=== PATIENT | female | born 1955 | race Caucasian/White ===

== ENCOUNTER → 2021-07-23 | Outpatient (BNVA) | payer MEDICAID, SELFPAY | END | disposition home or self-care (01) | PROVIDERS: PCP Hospitalist; Referring Provider Hospitalist; Visit Provider Urology ==

== ENCOUNTER 2024-07-20 11:09 | Inpatient (IN) | payer MEDICAID, SELFPAY ==
[2024-07-20] VITALS (28 sets, daily range): BP systolic 93–141; BP diastolic 48–89; PULSE 62–114; RESP 18–31; TEMP 35.6–36.5; O2SAT 93–100; BMI 32.2
--- NOTE | 2024-07-20 11:12 | EDNOTE_ITS ---
ED SOB =RME/HPI General Chief Complaint: Flu Like Symptoms Stated Complaint: COUGH Time Seen by Provider: 07/20/24 11:11 Arrival date/time: 07/20/24 11:09 RME / HPI RME / HPI Narrative: This section includes all my notes and documentations, including HPI, PE, and ED course. Robin Beck MD HPI: 68-year-old female here with worsening cough and shortness of breath. Reports several weeks of worsening cough, productive cough, purulent sputum, and dyspnea. No other complaints. ROS: All negative except as documented in HPI. Physical Exam: General: Alert and oriented. Hacking cough noted. Eyes: Conjunctivae and lids clear. ENT: No nasal congestion. Pharynx normal. TM normal bilaterally. Neck: Supple. No JVD. Heart: Irregularly irregular. Lungs: Mild respiratory distress. Moderately decreased air movement with bilateral rales. Abdomen: Soft and nontender. Back: No CVA tenderness. Skin: Warm and dry. Neuro: Alert and oriented X 3. I reviewed all diagnostic test results. My interpretation of the EKG is atrial fibrillation with RVR. My interpretation of the chest x-ray is bilateral infiltrates. At this point, diagnoses include pneumonia, atrial fibrillation with RVR, CHF, elevated troponin, hypothyroidism, ESRD, and UTI. I discussed the case with our hospitalist. About the presentation and exam and diagnostics and treatments here. And need of further care in the hospital. Will accept the patient. Robin Beck MD Related Data Home Medications ?Medication ?Instructions ?Recorded ?Confirmed bisacodyl 10 mg rectal suppository 10 mg NE Q72H PRN Constipation 02/27/20 07/30/24 (Dulcolax (bisacodyl)) sodium phosphates 19 gram-7 118 ml NE Q72H PRN Constipation 02/27/20 07/30/24 gram/118 mL enema (Fleet Enema) melatonin 3 mg tablet 3 mg PO HS PRN Insomnia 08/19/21 07/21/24 acetaminophen 325 mg tablet 650 mg PO [id number] PRN Pain (Scale 04/21/22 07/30/24 (Tylenol) Score 1-3) amino acids-protein hydrolysate 15 1 ea PO BIDWMEAL 10/12/22 01/20/25 gram-100 kcal/30 mL oral liquid pkt sevelamer HCl 800 mg tablet 2,400 mg PO TIDWM 04/21/22 07/30/24 docusate sodium 250 mg capsule 250 mg PO DAILY PRN Constipation 05/25/23 07/21/24 ondansetron HCl 4 mg tablet 4 mg PO Q6H PRN Nausea And Vomiting 05/25/23 07/30/24 aluminum-mag hydroxide-simethicone 15 ml PO [id number] PRN Acid Reflux 07/30/24 07/30/24 200 mg-200 mg-20 mg/5 mL oral susp (Annabelle-Lanta) folic acid 1 mg tablet 1 mg PO QDAY 07/30/24 07/30/24 vitamin B complex-vitamin C-folic 1 tab PO QDAY 07/30/24 07/30/24 acid 0.8 mg tablet (Dayan-Aristides) Previous Rx's ?Medication ?Instructions ?Recorded levothyroxine 100 mcg tablet 100 mcg PO ACBR 30 days #30 tabs 08/02/24 amiodarone 200 mg tablet 200 mg PO BID #30 tabs 08/03/24 apixaban 2.5 mg tablet (Eliquis) 2.5 mg PO BID #30 tabs 08/03/24 digoxin 125 mcg (0.125 mg) tablet 125 mcg PO Q48H #30 tabs 08/03/24 midodrine 5 mg tablet 15 mg (3 x 5 mg) PO TID #30 tabs 08/03/24 Allergies Allergy/AdvReac Type Severity Reaction Status Date / Time adhesive Allergy Mild Redness of Verified 07/20/24 12:00 Skin adhesive tape Allergy Mild Redness of Verified 07/20/24 12:00 Skin Course Quality Measures none Orders Category Date Time Status Bedside COVID-19 Antigen Test NOW Care 07/20/24 12:15 Completed Bedside Influenza A&B Antigen Test NOW Care 07/20/24 12:15 Completed COVID-19 Screening Questionnaire NOW Care 07/20/24 13:[address] Screening NOW Care 07/20/24 12:18 Completed Decision to Admit X1 Care 07/20/24 13:36 Completed EKG (ED ONLY) *Do not use* NOW Care 07/20/24 11:49 Completed Saline [Insert IV] NOW Care 07/20/24 12:16 Completed Straight [In and Out Catheter] X1 Care 07/20/24 12:16 Completed Consult to Cardiology Stat Cons 07/20/24 13:30 Ordered Consult to Nephrology Stat Cons 07/20/24 13:51 Ordered CA echo doppler complete Stat Exams 07/20/24 13:31 Completed CXRP [XR chest 1V portable] Stat Exams 07/20/24 11:48 Completed EKG (ED Only) Stat Exams 07/20/24 11:48 Draft US venous doppler LE BI Stat Exams 07/20/24 12:18 Completed BNP [B-Type Natriuretic Peptide] Stat Lab 07/20/24 11:54 Completed CBC Stat Lab 07/20/24 11:54 Completed CMP [Comprehensive Metabolic Panel] Stat Lab 07/20/24 11:54 Completed D-Dimer Stat Lab 07/20/24 11:54 Completed Magnesium Stat Lab 07/20/24 11:54 Completed Thyroid Stimulating Hormone Stat Lab 07/20/24 11:54 Completed Troponin I Stat Lab 07/20/24 11:54 Completed UA, C/S IF [Urinalysis, C/S if Indicated] Stat Lab 07/20/24 14:15 Completed Urine Culture Stat Lab 07/20/24 14:15 Completed Aspirin Chew Med 07/20/24 13:27 Discontinued 324 mg PO X1 ONE Azithromycin Inj [Zithromax Inj] 500 mg Med 07/20/24 13:32 Discontinued Sodium Chloride 0.9% 250 ml [Ns] 250 ml IV X1 Cefepime Inj [Maxipime Inj] 2 gm Med 07/20/24 13:46 Discontinued Sodium Chloride 0.9% (P) [Ns 0.9% (P)] 50 ml IV X1 Furosemide Inj [Lasix Inj] Med 07/20/24 11:48 Discontinued 40 mg IVP X1 ONE Morphine Inj Med 07/20/24 12:18 Discontinued 2 mg IVP X1 ONE Nitroglycerin Oint 2% [Nitro-paste Oint 2%] Med 07/20/24 12:18 Discontinued 1 inch TOP X1 ONE Vancomycin Inj 2,000 mg Med 07/20/24 13:46 Discontinued Sodium Chloride 0.9% 500 ml [Ns] 500 ml IV X1 cefTRIAXone [Rocephin] 1,000 mg Med 07/20/24 13:32 Discontinued Sodium Chloride 0.9% (P) [Ns 0.9% (P)] 50 ml IV X1 EKG (RT) Stat RT 07/20/24 14:29 Draft Oxygen Delivery NOW RT 07/20/24 12:15 Completed Vital Signs Vital signs: Vital Signs Temperature 97.6 F 07/20/24 11:31 Pulse Rate 98 07/20/24 11:31 Respiratory Rate 18 07/20/24 11:31 Blood Pressure 114/81 07/20/24 11:31 Pulse Oximetry (%) 100 07/20/24 11:31 Oxygen Delivery Method Nasal Cannula 07/20/24 11:31 Oxygen Flow Rate 3 07/20/24 11:31 Shortness of Breath / Dyspnea Patient data External records reviewed:: [facility] previous records Clinical information provided by:: patient, EMS and family Social determinants that could affect healthcare access:: none Patient has the following chronic illnesses:: ESRD, CHF, atrial fibrillation, DM How is presenting disease/condition affected by chronic disease/condition?: exacerbated by Evaluation data The following diagnostics were reviewed and interpreted by me:: lab results, radiology exam(s) and EKG tracing(s) (My interpretation of the EKG is: Atrial fibrillation (103 bpm) with nonspecific ST-T changes. Robin Beck MD) Lab and/or radiology exams considered but not ordered:: None Interpretation Summary: Pneumonia, atrial fibrillation with RVR, CHF, hypothyroidism, ESRD, UTI Medications / Prescriptions Medications or Prescriptions considered but not ordered:: None Medication administrations:: Medication Administration History Discontinued Medications Acetaminophen (Acetaminophen 500 Mg Tablet) 500 mg PO X1 ONE Stop: 07/27/24 02:34 Last Admin: 07/27/24 02:50 Dose: 500 mg Documented By: RB Acetaminophen (Acetaminophen 325 Mg Tablet) 650 mg PO Q4HR PRN PRN Reason: mild pain Stop: 08/26/24 16:12 Acetaminophen (Acetaminophen 325 Mg Tablet) 650 mg PO Q4HR PRN PRN Reason: mild pain 1-3 or Fever >100.4 Stop: 08/26/24 16:12 Last Admin: 08/03/24 10:08 Dose: 650 mg Documented By: Admin: 08/02/24 21:24 Dose: 650 mg Documented By: Admin: 08/02/24 04:23 Dose: 650 mg Documented By: Admin: 08/01/24 20:06 Dose: 650 mg Documented By: Admin: 07/30/24 05:53 Dose: 650 mg Documented By: Admin: 07/27/24 16:33 Dose: 650 mg Documented By: MGD Hydrocodone Bitart/Acetaminophen (Hydrocodone/Apap 5/325 Tablet) 1 tab PO X1 ONE Stop: 07/20/24 16:21 Last Admin: 07/20/24 16:23 Dose: 1 tab Documented By: TM Al Hydrox/Mg Hydrox/Simethicone (Mg Hyd/Al Hyd/Alfredo (Maalox Reg) Susp 30 Ml Udc) 30 ml PO QID PRN PRN Reason: UPSET STOMACH/INDIGESTION Stop: 08/26/24 18:40 Last Admin: 07/30/24 13:52 Dose: 30 ml Documented By: Admin: 07/29/24 18:19 Dose: 30 ml Documented By: Admin: 07/27/24 18:49 Dose: 30 ml Documented By: MGD Apixaban (Apixaban 2.5 Mg Tablet) 5 mg PO BID KOTA Stop: 08/19/24 20:59 Last Admin: 07/21/24 20:37 Dose: 5 mg Documented By: Admin: 07/21/24 08:49 Dose: 5 mg Documented By: Admin: 07/20/24 20:27 Dose: 5 mg Documented By: RITIKA(2) Apixaban (Apixaban 2.5 Mg Tablet) 2.5 mg PO BID KOTA Stop: 08/21/24 08:59 Last Admin: 08/03/24 10:08 Dose: 2.5 mg Documented By: Admin: 08/02/24 21:24 Dose: 2.5 mg Documented By: Admin: 08/02/24 08:51 Dose: 2.5 mg Documented By: Admin: 08/01/24 20:09 Dose: 2.5 mg Documented By: Admin: 08/01/24 08:09 Dose: 2.5 mg Documented By: Admin: 07/31/24 21:20 Dose: 2.5 mg Documented By: Admin: 07/31/24 09:04 Dose: 2.5 mg Documented By: Admin: 07/30/24 20:57 Dose: 2.5 mg Documented By: Admin: 07/30/24 09:09 Dose: 2.5 mg Documented By: Admin: 07/29/24 21:13 Dose: 2.5 mg Documented By: Admin: 07/29/24 08:58 Dose: 2.5 mg Documented By: Admin: 07/28/24 20:47 Dose: 2.5 mg Documented By: Admin: 07/28/24 08:48 Dose: 2.5 mg Documented By: Admin: 07/27/24 21:19 Dose: 2.5 mg Documented By: Admin: 07/24/24 08:48 Dose: 2.5 mg Documented By: Admin: 07/23/24 20:34 Dose: 2.5 mg Documented By: Admin: 07/23/24 08:50 Dose: 2.5 mg Documented By: Admin: 07/22/24 20:43 Dose: 2.5 mg Documented By: Admin: 07/22/24 09:09 Dose: 2.5 mg Documented By: KELLEE Aspirin (Aspirin 81 Mg Chew) 324 mg PO X1 ONE Stop: 07/20/24 13:28 Last Admin: 07/20/24 14:56 Dose: 324 mg Documented By: MILIND Aspirin (Aspirin Ec 81 Mg Tabec) 81 mg PO X1 ONE Stop: 07/21/24 09:01 Last Admin: 07/21/24 09:00 Dose: 81 mg Documented By: KELLEE Aspirin (Aspirin Ec 81 Mg Tabec) 81 mg PO QDAY [facility] Stop: 08/21/24 08:59 Last Admin: 08/03/24 10:08 Dose: 81 mg Documented By: Admin: 08/02/24 08:51 Dose: 81 mg Documented By: Admin: 08/01/24 08:09 Dose: 81 mg Documented By: Admin: 07/31/24 09:04 Dose: 81 mg Documented By: Admin: 07/30/24 09:09 Dose: 81 mg Documented By: Admin: 07/29/24 08:58 Dose: 81 mg Documented By: Admin: 07/24/24 08:48 Dose: 81 mg Documented By: Admin: 07/23/24 08:50 Dose: 81 mg Documented By: Admin: 07/22/24 09:10 Dose: 81 mg Documented By: KELLEE Azithromycin (Azithromycin 250 Mg Tablet) 500 mg PO QDAY [facility] Stop: 07/22/24 23:55 Last Admin: 07/22/24 09:10 Dose: 500 mg Documented By: Admin: 07/21/24 08:49 Dose: 500 mg Documented By: KELLEE Benzonatate (Benzonatate 100 Mg Capsule) 100 mg PO Q8HR PRN; Protocol PRN Reason: COUGH Stop: 08/20/24 11:41 Last Admin: 07/26/24 19:45 Dose: 100 mg Documented By: Admin: 07/25/24 21:14 Dose: 100 mg Documented By: Admin: 07/25/24 09:19 Dose: 100 mg Documented By: Admin: 07/23/24 22:29 Dose: 100 mg Documented By: Admin: 07/23/24 05:43 Dose: 100 mg Documented By: Admin: 07/22/24 20:43 Dose: 100 mg Documented By: Admin: 07/22/24 05:51 Dose: 100 mg Documented By: Admin: 07/21/24 20:37 Dose: 100 mg Documented By: Admin: 07/21/24 11:49 Dose: 100 mg Documented By: KELLEE Dextrose (Dextrose 50%-Water Inj 50 Ml Syringe) 25 ml IV Q15MIN PRN PRN Reason: BG 50-70 responsive npo pt Stop: 08/19/24 15:45 Dextrose (Dextrose 50%-Water Inj 50 Ml Syringe) 50 ml IV Q15MIN PRN PRN Reason: BG <50 OR BG <70 & pt unresponsive Stop: 08/19/24 15:45 Last Admin: 07/21/24 07:46 Dose: 50 ml Documented By: KELLEE Dicyclomine HCl (Dicyclomine 10 Mg Capsule) 10 mg PO X1 ONE Stop: 07/29/24 07:47 Last Admin: 07/29/24 07:58 Dose: 10 mg Documented By: CHUCK Digoxin (Digoxin 0.125 Mg Tablet) 0.125 mg PO QDAY KOTA Stop: 08/20/24 08:59 Digoxin (Digoxin 0.125 Mg Tablet) 0.125 mg PO X1 ONE Stop: 07/21/24 09:01 Digoxin (Digoxin 0.125 Mg Tablet) 0.25 mg PO X1 ONE Stop: 07/27/24 17:40 Last Admin: 07/27/24 18:27 Dose: 0.25 mg Documented By: MGD Digoxin (Digoxin 0.125 Mg Tablet) 0.25 mg PO X1 ONE Stop: 07/27/24 23:31 Last Admin: 07/28/24 00:14 Dose: 0.25 mg Documented By: MITZY Digoxin (Digoxin 0.125 Mg Tablet) 0.125 mg PO Q48H KOTA Stop: 08/28/24 07:59 Last Admin: 08/02/24 08:51 Dose: 0.125 mg Documented By: Admin: 07/31/24 09:05 Dose: 0.125 mg Documented By: Admin: 07/29/24 08:57 Dose: 0.125 mg Documented By: BM Comments: ok to give per dr wagoner Epoetin Ant (Epoetin Ant-Epbx Inj 40,000 Unit/Ml Vial (Esrd)) 10,000 unit SC X1 ONE Stop: 07/23/24 09:16 Last Admin: 07/23/24 11:39 Dose: 10,000 unit Documented By: ED(2) Epoetin Ant (Epoetin Ant-Epbx Inj 40,000 Unit/Ml Vial (Esrd)) 10,000 unit SC X1 ONE Stop: 07/25/24 10:01 Last Admin: 07/25/24 09:58 Dose: 10,000 unit Documented By: PAL Epoetin Ant (Epoetin Ant-Epbx Inj 10,000 Unit/Ml Vial (Esrd)) 10,000 unit SC X1 ONE Stop: 07/30/24 09:01 Last Admin: 07/30/24 10:57 Dose: 10,000 unit Documented By: PAL Epoetin Ant (Epoetin Ant-Epbx Inj 10,000 Unit/Ml Vial (Esrd)) 10,000 unit SC X1 ONE Stop: 08/01/24 09:01 Last Admin: 08/01/24 10:06 Dose: Not Given Documented By: CB Non-Admin Reason: Pt did not have dialysis Epoetin Ant (Epoetin Ant-Epbx Inj 10,000 Unit/Ml Vial (Esrd)) 10,000 unit SC X1 ONE Stop: 08/03/24 09:01 Furosemide (Furosemide Inj 10 Mg/Ml 4ml Vial) 40 mg IVP X1 ONE Stop: 07/20/24 11:49 Last Admin: 07/20/24 12:13 Dose: 40 mg Documented By: NATALYA Glucagon (Glucagon Inj 1 Mg Vial) 1 mg IM Q15MIN PRN PRN Reason: BG <70, and no IV access Guaifenesin/Dextromethorphan (Guaifenesin/Dm Tablet) 1 each PO Q4HR PRN; Protocol PRN Reason: COUGH Stop: 08/19/24 16:07 Hydrocortisone Sodium Succinate (Hydrocortisone Sod Succ Inj 100 Mg Vial) 100 mg IV X1 ONE Stop: 07/29/24 13:27 Last Admin: 07/29/24 13:53 Dose: 100 mg Documented By: CHUCK Azithromycin 500 mg/ Sodium (Chloride) 250 mls @ 250 mls/hr IV X1 ONE Stop: 07/20/24 14:31 Last Admin: 07/20/24 15:31 Dose: Not Given Documented By: NATALYA Non-Admin Reason: Discontinued Ceftriaxone Sodium 1,000 mg/ (Sodium Chloride) 50 mls @ 100 mls/hr IV X1 ONE Stop: 07/20/24 14:01 Last Admin: 07/20/24 15:31 Dose: Not Given Documented By: NATALYA Non-Admin Reason: Discontinued Cefepime HCl 2 gm/ Sodium (Chloride) 50 mls @ 100 mls/hr IV X1 ONE Stop: 07/20/24 14:15 Last Infusion: 07/20/24 16:25 Dose: Infused Documented By: Admin: 07/20/24 15:01 Dose: 100 mls/hr Documented By: MILIND Vancomycin HCl 2,000 mg/ (Sodium Chloride) 500 mls @ 150 mls/hr IV X1 ONE Stop: 07/20/24 17:05 Last Admin: 07/20/24 20:26 Dose: 150 mls/hr Documented By: RITIKA(2) Ceftriaxone Sodium/Dextrose (Rocephin/D5w 1gm Iv Premix) 50 mls @ 100 mls/hr IV QDAY [facility] Stop: 07/28/24 08:59 Last Admin: 07/22/24 09:10 Dose: 100 mls/hr Documented By: Infusion: 07/21/24 09:20 Dose: Infused Documented By: Admin: 07/21/24 08:50 Dose: 100 mls/hr Documented By: KELLEE Azithromycin 500 mg/ Sodium (Chloride) 250 mls @ 250 mls/hr IV QDAY [facility] Stop: 07/28/24 08:59 Albumin Human (Albuminar-25 Ivpb) 25 gm in 100 mls @ 100 mls/min IV PRN PRN PRN Reason: DIALYSIS Last Admin: 08/03/24 08:00 Dose: 100 mls/min Documented By: ED(2) Infusion: 07/30/24 19:20 Dose: Infused Documented By: Admin: 07/30/24 09:52 Dose: 100 mls/min Documented By: Infusion: 07/27/24 15:11 Dose: Infused Documented By: Admin: 07/27/24 15:10 Dose: 100 mls/min Documented By: MM(2) Infusion: 07/27/24 13:33 Dose: Infused Documented By: MM(2) Admin: 07/27/24 13:32 Dose: 100 mls/min Documented By: MM(2) Infusion: 07/26/24 13:51 Dose: Infused Documented By: MM(2) Admin: 07/26/24 13:50 Dose: 100 mls/min Documented By: MM(2) Infusion: 07/23/24 09:27 Dose: Infused Documented By: MM(2) Admin: 07/23/24 09:26 Dose: 100 mls/min Documented By: ED(2) Infusion: 07/21/24 14:17 Dose: Infused Documented By: ED(2) Admin: 07/21/24 14:16 Dose: 100 mls/min Documented By: Infusion: 07/20/24 21:02 Dose: Infused Documented By: KD(2) Admin: 07/20/24 17:20 Dose: 100 mls/min Documented By: MM(2) Meropenem 500 mg/ Sodium (Chloride) 50 mls @ 100 mls/hr IV Q24H KOTA Stop: 07/29/24 13:59 Meropenem 500 mg/ Sodium (Chloride) 50 mls @ 100 mls/hr IV Q24H [place] Stop: 07/29/24 12:59 Last Admin: 07/22/24 14:51 Dose: 100 mls/hr Documented By: KELLEE Comments: Admin late due to needing new IV access. Piperacillin/Tazobactam/Dextrose (Zosyn) 2.25 gm in 50 mls @ 100 mls/hr IV Q8HR KOTA Stop: 07/30/24 05:59 Last Infusion: 07/30/24 19:20 Dose: Infused Documented By: Admin: 07/29/24 21:12 Dose: 100 mls/hr Documented By: Infusion: 07/29/24 15:34 Dose: Infused Documented By: Admin: 07/29/24 15:04 Dose: 100 mls/hr Documented By: Infusion: 07/29/24 05:50 Dose: Infused Documented By: Admin: 07/29/24 05:20 Dose: 100 mls/hr Documented By: Infusion: 07/28/24 21:43 Dose: Infused Documented By: Admin: 07/28/24 21:13 Dose: 100 mls/hr Documented By: Infusion: 07/28/24 14:47 Dose: Infused Documented By: Admin: 07/28/24 14:17 Dose: 100 mls/hr Documented By: Infusion: 07/28/24 09:21 Dose: Infused Documented By: Admin: 07/28/24 05:21 Dose: 12.5 mls/hr Documented By: Infusion: 07/28/24 01:19 Dose: Infused Documented By: Admin: 07/27/24 21:19 Dose: 12.5 mls/hr Documented By: Admin: 07/27/24 15:59 Dose: Not Given Documented By: MGD Non-Admin Reason: Held for Dialysis Infusion: 07/27/24 09:08 Dose: Infused Documented By: Admin: 07/27/24 05:08 Dose: 12.5 mls/hr Documented By: Infusion: 07/27/24 01:07 Dose: Infused Documented By: Admin: 07/26/24 21:07 Dose: 12.5 mls/hr Documented By: Infusion: 07/26/24 15:30 Dose: Infused Documented By: Admin: 07/26/24 15:00 Dose: 100 mls/hr Documented By: Infusion: 07/26/24 06:31 Dose: Infused Documented By: Admin: 07/26/24 06:01 Dose: 100 mls/hr Documented By: Infusion: 07/25/24 22:58 Dose: Infused Documented By: Admin: 07/25/24 22:28 Dose: 100 mls/hr Documented By: Infusion: 07/25/24 16:35 Dose: Infused Documented By: Admin: 07/25/24 16:05 Dose: 100 mls/hr Documented By: KELLEE Comments: Administered late due to losing IV access and needing to establish a new one Infusion: 07/25/24 06:08 Dose: Infused Documented By: Admin: 07/25/24 05:38 Dose: 100 mls/hr Documented By: Infusion: 07/24/24 22:16 Dose: Infused Documented By: Admin: 07/24/24 21:46 Dose: 100 mls/hr Documented By: Infusion: 07/24/24 15:27 Dose: Infused Documented By: Admin: 07/24/24 14:57 Dose: 100 mls/hr Documented By: Infusion: 07/24/24 06:41 Dose: Infused Documented By: Admin: 07/24/24 06:11 Dose: 100 mls/hr Documented By: Infusion: 07/23/24 21:03 Dose: Infused Documented By: Admin: 07/23/24 20:33 Dose: 100 mls/hr Documented By: Infusion: 07/23/24 13:53 Dose: Infused Documented By: Admin: 07/23/24 13:23 Dose: 100 mls/hr Documented By: Infusion: 07/23/24 06:14 Dose: Infused Documented By: Admin: 07/23/24 05:44 Dose: 100 mls/hr Documented By: JAVIER Magnesium Sulfate (Magnesium Sulfate Ivpb) 2 gm in 50 mls @ 25 mls/hr IV X1 ONE Stop: 07/26/24 09:30 Last Admin: 07/26/24 08:03 Dose: 25 mls/hr Documented By: MGD Sodium Chloride (Ns) 250 mls @ 999 mls/hr IV .Q16M ONE Stop: 07/26/24 07:57 Last Admin: 07/26/24 08:03 Dose: 999 mls/hr Documented By: MGD Sodium Chloride (Ns) 250 mls @ 999 mls/hr IV .Q16M ONE Stop: 07/27/24 15:41 Last Admin: 07/27/24 18:29 Dose: Not Given Documented By: MGD Non-Admin Reason: not given Albumin Human (Albuminar-25 Ivpb) 12.5 gm in 50 mls @ 50 mls/hr IV X1 ONE Stop: 07/27/24 16:25 Last Admin: 07/27/24 18:29 Dose: Not Given Documented By: MGD Non-Admin Reason: not given Albumin Human (Albuminar-25 Ivpb) 12.5 gm in 50 mls @ 50 mls/hr IV X1 ONE Stop: 07/29/24 09:38 Last Admin: 07/29/24 08:56 Dose: 50 mls/hr Documented By: CHUCK Sodium Chloride (Ns) 250 mls @ 999 mls/hr IV .Q16M ONE Stop: 08/01/24 14:45 Last Admin: 08/01/24 17:03 Dose: Not Given Documented By: MARINA Non-Admin Reason: ok to hold d/t fluid restr. per md gan Amiodarone HCl/Dextrose (Nexterone Ivpb) 150 mg in 100 mls @ 600 mls/hr IV .Q10M ONE Stop: 08/03/24 09:50 Last Admin: 08/03/24 09:52 Dose: 600 mls/hr Documented By: ELAYNE Amiodarone HCl/Dextrose (Nexterone Ivpb) 360 mg in 200 mls @ 33.333 mls/hr IV .Q6H ONE Stop: 08/03/24 15:40 Last Admin: 08/03/24 10:08 Dose: 33.333 mls/hr Documented By: ELAYNE Amiodarone HCl/Dextrose (Nexterone Ivpb) 360 mg in 200 mls @ 16.667 mls/hr IV .Q12H [facility] Stop: 08/04/24 15:29 Insulin Glargine (Insulin Glargine (Lantus) 5 Unit/0.05 Ml (Per 5 Units)) 15 unit SC [facility] Stop: 08/19/24 20:59 Last Admin: 07/20/24 20:28 Dose: 15 unit Documented By: RITIKA(2) Co-signed By: TIMOTHY Insulin Human Lispro (Insulin Lispro (Admelog) 1 Unit/0.01 Ml Unit) 0 unit SC [facility]; Protocol Stop: 08/19/24 16:59 Last Admin: 08/03/24 11:37 Dose: Not Given Documented By: ELAYNE Non-Admin Reason: Per Protocol Admin: 08/03/24 09:46 Dose: Not Given Documented By: ELAYNE Non-Admin Reason: Not In Room Admin: 08/02/24 21:29 Dose: 2 unit Documented By: AL Co-signed By: CG Admin: 08/02/24 17:36 Dose: Not Given Documented By: VA Non-Admin Reason: Per Protocol Admin: 08/02/24 12:07 Dose: 2 unit Documented By: VA Co-signed By: TD Admin: 08/02/24 07:46 Dose: Not Given Documented By: VA Non-Admin Reason: Per Protocol Admin: 08/01/24 20:12 Dose: Not Given Documented By: AL Non-Admin Reason: Contraindicated Comments: 139 Admin: 08/01/24 16:59 Dose: Not Given Documented By: CB Non-Admin Reason: Per Protocol Admin: 08/01/24 11:44 Dose: 3 unit Documented By: MARINA Co-signed By: KARLA Admin: 08/01/24 07:17 Dose: Not Given Documented By: CB Non-Admin Reason: Per Protocol Admin: 07/31/24 21:28 Dose: Not Given Documented By: HV Non-Admin Reason: Per Protocol Admin: 07/31/24 17:54 Dose: 2 unit Documented By: KENNEDI Co-signed By: NATALYA(2) Admin: 07/31/24 12:20 Dose: 2 unit Documented By: KENNEDI Co-signed By: NATALYA(2) Admin: 07/31/24 08:11 Dose: 2 unit Documented By: KENNEDI Co-signed By: NATALYA(2) Admin: 07/30/24 20:57 Dose: Not Given Documented By: NASRA Non-Admin Reason: Per Protocol Admin: 07/30/24 17:31 Dose: 2 unit Documented By: RITIKA Co-signed By: JAZMÍN Admin: 07/30/24 14:14 Dose: Not Given Documented By: RITIKA Non-Admin Reason: Per Protocol Comments: late check due to pt at dialysis Admin: 07/30/24 08:06 Dose: 2 unit Documented By: RITIKA Co-signed By: JAZMÍN Admin: 07/29/24 21:12 Dose: 2 unit Documented By: HOA Co-signed By: TIMOTHY(2) Admin: 07/29/24 17:14 Dose: 2 unit Documented By: CHUKC Co-signed By: RADHIKA Admin: 07/29/24 11:41 Dose: Not Given Documented By: BM Non-Admin Reason: Per Protocol Admin: 07/29/24 07:57 Dose: 2 unit Documented By: BM Co-signed By: AT Admin: 07/28/24 20:47 Dose: 3 unit Documented By: CHULA Co-signed By: JAIME Admin: 07/28/24 18:00 Dose: 3 unit Documented By: CHUCK Co-signed By: KATINA Admin: 07/28/24 11:17 Dose: Not Given Documented By: BM Non-Admin Reason: Per Protocol Admin: 07/28/24 07:49 Dose: Not Given Documented By: BM Non-Admin Reason: Per Protocol Admin: 07/27/24 21:19 Dose: 2 unit Documented By: NC Co-signed By: MR Admin: 07/27/24 18:26 Dose: Not Given Documented By: MGD Non-Admin Reason: Per Protocol Admin: 07/27/24 11:30 Dose: 2 unit Documented By: MGD Co-signed By: DA Admin: 07/27/24 07:53 Dose: 2 unit Documented By: MGD Co-signed By: MM Admin: 07/26/24 20:12 Dose: 2 unit Documented By: RB Co-signed By: ZOILA Admin: 07/26/24 16:54 Dose: Not Given Documented By: MGD Non-Admin Reason: Per Protocol Admin: 07/26/24 11:55 Dose: 2 unit Documented By: [email or web address] Co-signed By: KENNEDI Admin: 07/26/24 07:54 Dose: 2 unit Documented By: MGCaterina Co-signed By: KENNEDI Admin: 07/25/24 21:15 Dose: 2 unit Documented By: HYACINTH Co-signed By: NASRA Admin: 07/25/24 17:32 Dose: 3 unit Documented By: KELLEE Co-signed By: ER Admin: 07/25/24 16:48 Dose: Not Given Documented By: LW Non-Admin Reason: Not In Room Admin: 07/25/24 07:37 Dose: Not Given Documented By: KELLEE Non-Admin Reason: Per Protocol Admin: 07/24/24 21:53 Dose: Not Given Documented By: SS Non-Admin Reason: Per Protocol Admin: 07/24/24 18:38 Dose: Not Given Documented By: KELLEE Non-Admin Reason: Per Protocol Admin: 07/24/24 11:42 Dose: 3 unit Documented By: KELLEE Co-signed By: NATALYA(2) Admin: 07/24/24 07:42 Dose: Not Given Documented By: LW Non-Admin Reason: Per Protocol Admin: 07/23/24 20:50 Dose: 2 unit Documented By: ROSY Co-signed By: ZACHARY Admin: 07/23/24 17:28 Dose: 2 unit Documented By: KELLEE Co-signed By: KATINA Admin: 07/23/24 13:18 Dose: Not Given Documented By: KELLEE Non-Admin Reason: Held for Dialysis Admin: 07/23/24 07:26 Dose: 2 unit Documented By: KELLEE Co-signed By: NATALYA(2) Admin: 07/22/24 20:45 Dose: Not Given Documented By: JAVIER Non-Admin Reason: Per Protocol Admin: 07/22/24 17:59 Dose: Not Given Documented By: KELLEE Non-Admin Reason: Per Protocol Admin: 07/22/24 11:53 Dose: 3 unit Documented By: KELLEE Co-signed By: NATALYA(2) Admin: 07/22/24 07:44 Dose: Not Given Documented By: KELLEE Non-Admin Reason: Per Protocol Admin: 07/21/24 20:34 Dose: 3 unit Documented By: JAVIER Co-signed By: NASRA Admin: 07/21/24 17:45 Dose: Not Given Documented By: KELLEE Non-Admin Reason: Per Protocol Admin: 07/21/24 11:46 Dose: Not Given Documented By: KELLEE Non-Admin Reason: Per Protocol Admin: 07/21/24 08:08 Dose: Not Given Documented By: KELLEE Non-Admin Reason: Per Protocol Admin: 07/20/24 20:48 Dose: Not Given Documented By: KD(2) Non-Admin Reason: Other, see note Admin: 07/20/24 20:11 Dose: Not Given Documented By: KD(2) Non-Admin Reason: Other, see note Insulin Human Lispro (Insulin Lispro (Admelog) 1 Unit/0.01 Ml Unit) 5 unit SC ACHS KOTA Stop: 08/19/24 16:59 Last Admin: 07/21/24 08:09 Dose: Not Given Documented By: KELLEE Non-Admin Reason: held per md Admin: 07/20/24 20:50 Dose: Not Given Documented By: KD(2) Non-Admin Reason: Other, see note Admin: 07/20/24 20:12 Dose: Not Given Documented By: KD(2) Non-Admin Reason: Other, see note Ipratropium [place] (Ipratropium Rt 0.5 Mg/ 2.5 Ml Nebu) 0.5 mg INH Q6HRRT KOTA Stop: 08/19/24 18:59 Last Admin: 07/31/24 06:37 Dose: 0.5 mg Documented By: Admin: 07/31/24 02:25 Dose: 0.5 mg Documented By: Admin: 07/30/24 19:43 Dose: 0.5 mg Documented By: Admin: 07/30/24 13:18 Dose: 0.5 mg Documented By: Admin: 07/30/24 06:44 Dose: 0.5 mg Documented By: Admin: 07/30/24 00:50 Dose: 0.5 mg Documented By: Admin: 07/29/24 18:55 Dose: 0.5 mg Documented By: Admin: 07/29/24 13:05 Dose: 0.5 mg Documented By: Admin: 07/29/24 06:53 Dose: 0.5 mg Documented By: Admin: 07/29/24 00:14 Dose: Not Given Documented By: NE Non-Admin Reason: Patient Refused Admin: 07/28/24 19:07 Dose: 0.5 mg Documented By: Admin: 07/28/24 14:18 Dose: 0.5 mg Documented By: Admin: 07/28/24 07:29 Dose: 0.5 mg Documented By: Admin: 07/28/24 00:20 Dose: 0.5 mg Documented By: Admin: 07/27/24 19:46 Dose: 0.5 mg Documented By: Admin: 07/27/24 13:25 Dose: Not Given Documented By: BJ Non-Admin Reason: Held for Dialysis Admin: 07/27/24 07:43 Dose: 0.5 mg Documented By: Admin: 07/27/24 00:56 Dose: 0.5 mg Documented By: Admin: 07/26/24 19:02 Dose: 0.5 mg Documented By: Admin: 07/26/24 12:25 Dose: 0.5 mg Documented By: Admin: 07/26/24 07:18 Dose: 0.5 mg Documented By: Admin: 07/26/24 01:03 Dose: 0.5 mg Documented By: Admin: 07/25/24 19:22 Dose: 0.5 mg Documented By: Admin: 07/25/24 12:18 Dose: Not Given Documented By: LINDSAY Non-Admin Reason: Not In Room Admin: 07/25/24 07:04 Dose: 0.5 mg Documented By: Admin: 07/25/24 00:13 Dose: 0.5 mg Documented By: Admin: 07/24/24 19:30 Dose: Not Given Documented By: BRADLEY Non-Admin Reason: Held for Procedure Admin: 07/24/24 12:29 Dose: 0.5 mg Documented By: Admin: 07/24/24 06:51 Dose: 0.5 mg Documented By: Admin: 07/24/24 00:40 Dose: 0.5 mg Documented By: SC Admin: 07/23/24 18:43 Dose: 0.5 mg Documented By: SC Admin: 07/23/24 12:27 Dose: Not Given Documented By: JOSIAH Non-Admin Reason: Not In Room Admin: 07/23/24 06:30 Dose: 0.5 mg Documented By: Admin: 07/23/24 00:57 Dose: 0.5 mg Documented By: MM(3) Admin: 07/22/24 22:40 Dose: Not Given Documented By: MM(3) Non-Admin Reason: Other, see note Admin: 07/22/24 13:54 Dose: Not Given Documented By: LINDSAY Non-Admin Reason: Other, see note Comments: pt undergoing procedure Admin: 07/22/24 06:07 Dose: 0.5 mg Documented By: Admin: 07/22/24 00:40 Dose: 0.5 mg Documented By: Admin: 07/21/24 19:27 Dose: 0.5 mg Documented By: REGINA(2) Admin: 07/21/24 13:41 Dose: 0.5 mg Documented By: Admin: 07/21/24 06:32 Dose: 0.5 mg Documented By: Admin: 07/21/24 01:15 Dose: 0.5 mg Documented By: SC Admin: 07/20/24 19:45 Dose: Not Given Documented By: AH(2) Non-Admin Reason: Not In Room Comments: Pt in dialysis Ipratropium [place] (Ipratropium Rt 0.5 Mg/ 2.5 Ml Nebu) 0.5 mg INH Q6HRRT PRN PRN Reason: WHEEZING Stop: 08/19/24 18:59 Lactobacillus Rhamnosus (Lactobacillus Rhamnosus 1 Cap) 1 cap PO BID KOTA Stop: 08/31/24 08:59 Last Admin: 08/03/24 10:08 Dose: 1 cap Documented By: Admin: 08/02/24 21:24 Dose: 1 cap Documented By: Admin: 08/02/24 08:51 Dose: 1 cap Documented By: Admin: 08/01/24 20:07 Dose: 1 cap Documented By: Admin: 08/01/24 11:43 Dose: 1 cap Documented By: MARINA Comments: unscheduled, pt back in room, 0900 dose Admin: 08/01/24 08:27 Dose: Not Given Documented By: MARINA Non-Admin Reason: Not In Room Levalbuterol HCl (Levalbuterol Rt 0.63 Mg/3 Ml Nebu) 0.31 mg INH Q6HRRT [facility] Stop: 08/19/24 18:59 Last Admin: 07/21/24 06:33 Dose: 0.31 mg Documented By: Admin: 07/21/24 01:14 Dose: 0.31 mg Documented By: SC Admin: 07/20/24 19:45 Dose: Not Given Documented By: REGINA(2) Non-Admin Reason: Not In Room Comments: Pt in dialysis Levalbuterol HCl (Levalbuterol Rt 0.63 Mg/3 Ml Nebu) 0.63 mg INH Q6HRRT [facility] Stop: 08/20/24 09:59 Last Admin: 07/31/24 06:37 Dose: 0.63 mg Documented By: Admin: 07/31/24 02:26 Dose: 0.63 mg Documented By: Admin: 07/30/24 19:43 Dose: 0.63 mg Documented By: Admin: 07/30/24 13:18 Dose: 0.63 mg Documented By: Admin: 07/30/24 06:44 Dose: 0.63 mg Documented By: Admin: 07/30/24 00:50 Dose: 0.63 mg Documented By: Admin: 07/29/24 18:55 Dose: 0.63 mg Documented By: Admin: 07/29/24 13:05 Dose: 0.63 mg Documented By: Admin: 07/29/24 06:53 Dose: 0.63 mg Documented By: Admin: 07/29/24 00:14 Dose: Not Given Documented By: NE Non-Admin Reason: Patient Refused Admin: 07/28/24 19:07 Dose: 0.63 mg Documented By: Admin: 07/28/24 14:18 Dose: 0.63 mg Documented By: Admin: 07/28/24 07:29 Dose: 0.63 mg Documented By: Admin: 07/28/24 00:20 Dose: 0.63 mg Documented By: Admin: 07/27/24 19:46 Dose: 0.63 mg Documented By: Admin: 07/27/24 13:25 Dose: Not Given Documented By: BJ Non-Admin Reason: Held for Dialysis Admin: 07/27/24 07:43 Dose: 0.63 mg Documented By: Admin: 07/27/24 00:56 Dose: 0.63 mg Documented By: Admin: 07/26/24 19:02 Dose: 0.63 mg Documented By: Admin: 07/26/24 12:25 Dose: 0.63 mg Documented By: Admin: 07/26/24 07:18 Dose: 0.63 mg Documented By: Admin: 07/26/24 01:03 Dose: 0.63 mg Documented By: Admin: 07/25/24 19:22 Dose: 0.63 mg Documented By: Admin: 07/25/24 12:19 Dose: Not Given Documented By: RG Non-Admin Reason: Not In Room Admin: 07/25/24 07:04 Dose: 0.63 mg Documented By: Admin: 07/25/24 00:13 Dose: 0.63 mg Documented By: Admin: 07/24/24 19:30 Dose: Not Given Documented By: SD Non-Admin Reason: Held for Procedure Admin: 07/24/24 12:29 Dose: 0.63 mg Documented By: Admin: 07/24/24 06:52 Dose: 0.63 mg Documented By: Admin: 07/24/24 00:40 Dose: 0.63 mg Documented By: SC Admin: 07/23/24 18:44 Dose: 0.63 mg Documented By: SC Admin: 07/23/24 12:27 Dose: Not Given Documented By: LO Non-Admin Reason: Not In Room Admin: 07/23/24 06:30 Dose: 0.63 mg Documented By: Admin: 07/23/24 00:57 Dose: 0.63 mg Documented By: PAL(3) Admin: 07/22/24 22:40 Dose: Not Given Documented By: PAL(3) Non-Admin Reason: Other, see note Admin: 07/22/24 13:55 Dose: Not Given Documented By: LINDSAY Non-Admin Reason: Other, see note Comments: pt undergoing procedure Admin: 07/22/24 06:07 Dose: 0.63 mg Documented By: Admin: 07/22/24 00:40 Dose: 0.63 mg Documented By: Admin: 07/21/24 19:27 Dose: 0.63 mg Documented By: REIGNA(2) Admin: 07/21/24 13:41 Dose: 0.63 mg Documented By: Admin: 07/21/24 10:45 Dose: Not Given Documented By: LINDSAY Non-Admin Reason: Wrong Time Levalbuterol HCl (Levalbuterol Rt 0.63 Mg/3 Ml Nebu) 0.63 mg INH Q6HRRT PRN PRN Reason: WHEEZING Stop: 08/20/24 09:59 Levothyroxine Sodium (Levothyroxine Sodium 25 Mcg Tablet) 25 mcg PO ACBR [facility] Stop: 08/19/24 17:34 Last Admin: 07/21/24 05:28 Dose: 25 mcg Documented By: Admin: 07/20/24 20:37 Dose: 25 mcg Documented By: KD(2) Levothyroxine Sodium (Levothyroxine Sodium 25 Mcg Tablet) 50 mcg PO ACBR [facility] Stop: 08/21/24 05:59 Last Admin: 07/29/24 05:19 Dose: 50 mcg Documented By: Admin: 07/28/24 05:21 Dose: 50 mcg Documented By: Admin: 07/27/24 05:08 Dose: 50 mcg Documented By: Admin: 07/26/24 06:01 Dose: 50 mcg Documented By: Admin: 07/25/24 05:37 Dose: 50 mcg Documented By: Admin: 07/24/24 06:12 Dose: 50 mcg Documented By: Admin: 07/23/24 05:43 Dose: 50 mcg Documented By: Admin: 07/22/24 05:51 Dose: 50 mcg Documented By: JAVIER Levothyroxine Sodium (Levothyroxine Inj 100 Mcg Vial) 100 mcg IV X1 ONE Stop: 07/29/24 13:28 Last Admin: 07/29/24 13:53 Dose: 100 mcg Documented By: CHUCK Levothyroxine Sodium (Levothyroxine Sodium 25 Mcg Tablet) 75 mcg PO [facility] Stop: 08/29/24 05:59 Last Admin: 07/31/24 05:09 Dose: 75 mcg Documented By: Admin: 07/30/24 05:54 Dose: 75 mcg Documented By: HOA Levothyroxine Sodium (Levothyroxine Sodium 25 Mcg Tablet) 50 mcg PO X1 ONE Stop: 07/31/24 13:02 Last Admin: 07/31/24 15:13 Dose: 50 mcg Documented By: KENNEDI Levothyroxine Sodium (Levothyroxine Sodium 88 Mcg Tablet) [address] [facility] Stop: 08/31/24 06:59 Last Admin: 08/01/24 06:18 Dose: 88 mcg Documented By: LUDMILA Levothyroxine Sodium (Levothyroxine Sodium 100 Mcg Tablet) 100 mcg PO [facility] Stop: 09/01/24 05:59 Last Admin: 08/03/24 05:12 Dose: 100 mcg Documented By: Admin: 08/02/24 05:10 Dose: 100 mcg Documented By: RACHEL Levothyroxine Sodium (Levothyroxine Sodium 25 Mcg Tablet) 12.5 mcg PO X1 ONE Stop: 08/01/24 10:51 Last Admin: 08/01/24 11:43 Dose: 12.5 mcg Documented By: MARINA Melatonin (Melatonin 3 Mg Tablet) 3 mg PO HS PRN PRN Reason: SLEEPLESSNESS Stop: 08/20/24 20:59 Last Admin: 08/02/24 21:24 Dose: 3 mg Documented By: Admin: 08/01/24 21:19 Dose: 3 mg Documented By: Admin: 08/01/24 20:06 Dose: 3 mg Documented By: Admin: 07/27/24 21:19 Dose: 3 mg Documented By: Admin: 07/26/24 20:11 Dose: 3 mg Documented By: Admin: 07/23/24 22:29 Dose: 3 mg Documented By: Admin: 07/21/24 20:37 Dose: 3 mg Documented By: Admin: 07/21/24 00:37 Dose: 3 mg Documented By: WB Metoprolol Succinate (Metoprolol Succinate Xl 25 Mg Tabcr) 50 mg PO [facility] Stop: 08/19/24 20:59 Last Admin: 07/26/24 20:33 Dose: Not Given Documented By: RB Non-Admin Reason: Per Protocol Admin: 07/25/24 21:14 Dose: 50 mg Documented By: Admin: 07/24/24 21:46 Dose: Not Given Documented By: SS Non-Admin Reason: BP 101/63 Admin: 07/23/24 20:34 Dose: 50 mg Documented By: Admin: 07/22/24 20:43 Dose: 50 mg Documented By: WB Comments: okay to give per Dr. Graham Admin: 07/21/24 20:37 Dose: Not Given Documented By: WB Non-Admin Reason: Per Protocol Admin: 07/20/24 20:26 Dose: 50 mg Documented By: KD(2) Metoprolol Succinate (Metoprolol Succinate Xl 25 Mg Tabcr) 25 mg PO [facility] Stop: 08/26/24 20:59 Metoprolol Succinate (Metoprolol Succinate Xl 25 Mg Tabcr) 50 mg PO [facility] Stop: 08/26/24 20:59 Metoprolol Tartrate (Metoprolol Tartrate 25 Mg Tablet) 25 mg PO BID [facility] Stop: 08/19/24 20:59 Metoprolol Tartrate (Metoprolol Tartrate Inj 1 Mg/Ml Amp 5 Ml) 5 mg IVP X1 ONE Stop: 07/20/24 15:54 Last Admin: 07/20/24 17:00 Dose: Not Given Documented By: TM Non-Admin Reason: Cancelled by Provider Metoprolol Tartrate (Metoprolol Tartrate Inj 1 Mg/Ml Amp 5 Ml) 2.5 mg IVP X1 ONE Stop: 07/20/24 16:13 Last Admin: 07/20/24 16:15 Dose: 2.5 mg Documented By: TM Metoprolol Tartrate (Metoprolol Tartrate Inj 1 Mg/Ml Amp 5 Ml) 5 mg IVP X1 ONE Stop: 07/30/24 06:07 Last Admin: 07/30/24 06:13 Dose: 5 mg Documented By: HOA Metoprolol Tartrate (Metoprolol Tartrate Inj 1 Mg/Ml Amp 5 Ml) Confirm Administered Dose 5 mg .ROUTE .STK-MED ONE Stop: 07/30/24 06:04 Last Admin: 07/30/24 06:13 Dose: Not Given Documented By: HOA Non-Admin Reason: TASK DUPLICATION Midodrine (Midodrine 5 Mg Tablet) 10 mg PO BID KOTA Stop: 08/26/24 08:59 Last Admin: 07/27/24 08:23 Dose: 10 mg Documented By: JAZMÍN Midodrine (Midodrine 5 Mg Tablet) 10 mg PO X1 ONE Stop: 07/27/24 14:00 Last Admin: 07/27/24 15:30 Dose: 10 mg Documented By: JAZMÍN Midodrine (Midodrine 5 Mg Tablet) 10 mg PO TID KOTA Stop: 08/26/24 21:59 Last Admin: 07/29/24 05:20 Dose: 10 mg Documented By: Admin: 07/28/24 21:16 Dose: 10 mg Documented By: Admin: 07/28/24 14:17 Dose: 10 mg Documented By: Admin: 07/28/24 05:21 Dose: 10 mg Documented By: Admin: 07/27/24 21:29 Dose: 10 mg Documented By: MITZY Midodrine (Midodrine 5 Mg Tablet) 10 mg PO X1 ONE Stop: 07/29/24 07:41 Last Admin: 07/29/24 07:58 Dose: 10 mg Documented By: CHUCK Midodrine (Midodrine 5 Mg Tablet) 15 mg PO TID [facility] Stop: 08/28/24 13:59 Last Admin: 08/03/24 14:19 Dose: 15 mg Documented By: MGCaterina Admin: 08/03/24 05:12 Dose: 15 mg Documented By: Admin: 08/02/24 21:23 Dose: 15 mg Documented By: Admin: 08/02/24 14:54 Dose: 15 mg Documented By: Admin: 08/02/24 05:10 Dose: 15 mg Documented By: Admin: 08/01/24 21:15 Dose: 15 mg Documented By: Admin: 08/01/24 14:54 Dose: 15 mg Documented By: Admin: 08/01/24 06:17 Dose: 15 mg Documented By: Admin: 07/31/24 21:21 Dose: 15 mg Documented By: Admin: 07/31/24 15:13 Dose: 15 mg Documented By: Admin: 07/31/24 05:09 Dose: 15 mg Documented By: Admin: 07/30/24 22:13 Dose: 15 mg Documented By: Admin: 07/30/24 14:07 Dose: 15 mg Documented By: Admin: 07/30/24 05:53 Dose: 15 mg Documented By: Admin: 07/29/24 21:13 Dose: 15 mg Documented By: Admin: 07/29/24 13:53 Dose: 15 mg Documented By: CHUCK Morphine Sulfate (Morphine Sulf Inj 10 Mg/Ml Vial) 2 mg IVP X1 ONE Stop: 07/20/24 12:19 Last Admin: 07/20/24 12:43 Dose: 2 mg Documented By: DUSTIN Nitroglycerin (Nitroglycerin Oint 2% 1 Inch Packet) 1 inch TOP X1 ONE Stop: 07/20/24 12:19 Last Admin: 07/20/24 12:40 Dose: 1 inch Documented By: DUSTIN Pantoprazole Sodium (Pantoprazole Inj 40 Mg Vial) 40 mg IV QDAY KOTA Stop: 08/23/24 08:54 Last Admin: 08/03/24 10:08 Dose: 40 mg Documented By: Admin: 08/02/24 08:50 Dose: 40 mg Documented By: Admin: 08/01/24 08:09 Dose: 40 mg Documented By: Admin: 07/31/24 09:04 Dose: 40 mg Documented By: Admin: 07/30/24 09:09 Dose: 40 mg Documented By: Admin: 07/29/24 08:56 Dose: 40 mg Documented By: Admin: 07/28/24 08:48 Dose: 40 mg Documented By: Admin: 07/27/24 08:24 Dose: 40 mg Documented By: Admin: 07/26/24 08:08 Dose: 40 mg Documented By: Admin: 07/25/24 09:16 Dose: Not Given Documented By: KELLEE Non-Admin Reason: Held for Dialysis Admin: 07/24/24 09:11 Dose: 40 mg Documented By: Admin: 07/24/24 09:09 Dose: Not Given Documented By: KELLEE Non-Admin Reason: Duplicate Medication on eMAR Polyethylene Glycol (Polyethylene Glycol 17 Gm Packet) 17 gm PO QDAY KOTA Stop: 08/19/24 15:44 Last Admin: 07/28/24 08:48 Dose: Not Given Documented By: BM Non-Admin Reason: Patient Refused Admin: 07/27/24 08:24 Dose: 17 gm Documented By: Admin: 07/26/24 08:08 Dose: 17 gm Documented By: Admin: 07/25/24 09:16 Dose: Not Given Documented By: KELLEE Non-Admin Reason: Held for Dialysis Admin: 07/24/24 09:02 Dose: Not Given Documented By: KELLEE Non-Admin Reason: Patient Refused Admin: 07/23/24 08:53 Dose: Not Given Documented By: KELLEE Non-Admin Reason: Patient Refused Admin: 07/22/24 09:38 Dose: Not Given Documented By: KELLEE Non-Admin Reason: Pt. refused citing loose stools Admin: 07/21/24 08:57 Dose: Not Given Documented By: KELLEE Non-Admin Reason: Patient Refused Admin: 07/20/24 17:00 Dose: Not Given Documented By: NATALYA Non-Admin Reason: Patient Refused Polyethylene Glycol/Electrolytes (Na Colin/Nahco3/Pacheco/Peg (Golytely) 4,000 Ml Btl) 4,000 ml PO X1 ONE Stop: 07/24/24 09:47 Last Admin: 07/24/24 10:39 Dose: 4,000 ml Documented By: KELLEE Potassium Chloride (Potassium Chloride 10% 20 Meq/15 Ml Udc) 20 meq PO X1 ONE Stop: 07/20/24 16:04 Last Admin: 07/20/24 17:01 Dose: Not Given Documented By: NATALYA Non-Admin Reason: Cancelled by Provider Potassium Chloride (Potassium Chloride 20 Meq Tabcr) 20 meq PO X1 ONE Stop: 07/30/24 07:55 Last Admin: 07/30/24 15:26 Dose: Not Given Documented By: RITIKA Non-Admin Reason: Discontinued Potassium Chloride (Potassium Chloride 20 Meq Tabcr) 40 meq PO X1 ONE Stop: 07/31/24 08:12 Last Admin: 07/31/24 09:12 Dose: 40 meq Documented By: KENNEDI Potassium Chloride (Potassium Chloride 10% 20 Meq/15 Ml Udc) 40 meq PO X1 ONE Stop: 07/31/24 08:14 Last Admin: 07/31/24 09:13 Dose: 40 meq Documented By: KENNEDI Promethazine HCl (Promethazine 25 Mg Supp) 25 mg NE Q6HR PRN PRN Reason: COUGH OR CONGESTION Stop: 08/23/24 08:49 Promethazine HCl/Dextromethorphan (Promethazine/Dm Syrup 5 Ml Dose) 5 ml PO Q6HR PRN; Protocol PRN Reason: COUGH OR CONGESTION Stop: 08/23/24 10:28 Last Admin: 07/25/24 23:52 Dose: 5 ml Documented By: Admin: 07/25/24 17:31 Dose: 5 ml Documented By: Admin: 07/24/24 10:38 Dose: 5 ml Documented By: KELLEE Sennosides (Senna Tablet) 1 tab PO QDAY PRN; Protocol PRN Reason: CONSTIPATION Stop: 08/19/24 15:40 Sevelamer Carbonate (Sevelamer Carbonate 800 Mg Tablet) 800 mg PO TIDWM [facility] Stop: 08/29/24 07:59 Last Admin: 08/03/24 14:19 Dose: 800 mg Documented By: MGCaterina Admin: 08/03/24 09:46 Dose: Not Given Documented By: ELAYNE Non-Admin Reason: Not In Room Admin: 08/02/24 18:10 Dose: 800 mg Documented By: Admin: 08/02/24 12:07 Dose: 800 mg Documented By: Admin: 08/02/24 08:51 Dose: 800 mg Documented By: Admin: 08/01/24 17:47 Dose: Not Given Documented By: CB Non-Admin Reason: Patient Refused Admin: 08/01/24 11:43 Dose: 800 mg Documented By: Admin: 08/01/24 08:09 Dose: 800 mg Documented By: Admin: 07/31/24 18:16 Dose: Not Given Documented By: CB Non-Admin Reason: Patient Refused Admin: 07/31/24 12:21 Dose: 800 mg Documented By: Admin: 07/31/24 09:04 Dose: 800 mg Documented By: Admin: 07/30/24 17:31 Dose: 800 mg Documented By: Admin: 07/30/24 13:52 Dose: 800 mg Documented By: Admin: 07/30/24 08:06 Dose: 800 mg Documented By: RITIKA Simethicone (Simethicone 80 Mg Chew) 80 mg PO X1 ONE Stop: 07/29/24 08:59 Last Admin: 07/29/24 09:14 Dose: 80 mg Documented By: BM Simethicone (Simethicone 80 Mg Chew) 80 mg PO X1 ONE Stop: 07/30/24 13:08 Last Admin: 07/30/24 13:54 Dose: Not Given Documented By: RITIKA Non-Admin Reason: Patient Refused Simethicone (Simethicone 80 Mg Chew) 80 mg PO QID PRN PRN Reason: GAS Stop: 08/29/24 13:06 Sodium Chloride (Sodium Chloride Rt 10% 15 Ml Nebu) 5 ml INH X1 ONE Stop: 07/20/24 15:37 Last Admin: 07/20/24 20:11 Dose: Not Given Documented By: RITIKA(2) Non-Admin Reason: Other, see note Tramadol HCl (Tramadol Hcl 50 Mg Tablet) 50 mg PO Q6H PRN PRN Reason: Pain (Scale Score 4-6) Stop: 07/26/24 00:25 Last Admin: 07/23/24 03:21 Dose: 50 mg Documented By: Admin: 07/22/24 20:43 Dose: 50 mg Documented By: Admin: 07/22/24 05:52 Dose: 50 mg Documented By: Admin: 07/21/24 20:37 Dose: 50 mg Documented By: Admin: 07/21/24 14:36 Dose: 50 mg Documented By: Admin: 07/21/24 00:37 Dose: 50 mg Documented By: JAVIER Tramadol HCl (Tramadol Hcl 50 Mg Tablet) 50 mg PO BID PRN; Protocol PRN Reason: PAIN SCALE 4-6 (Moderate Stop: 07/26/24 00:25 Last Admin: 07/25/24 23:52 Dose: 50 mg Documented By: Admin: 07/25/24 11:08 Dose: 50 mg Documented By: Admin: 07/24/24 21:51 Dose: 50 mg Documented By: Admin: 07/23/24 22:29 Dose: 50 mg Documented By: Admin: 07/23/24 17:28 Dose: 50 mg Documented By: KELLEE Tramadol HCl (Tramadol Hcl 50 Mg Tablet) 50 mg PO X1 ONE Stop: 07/26/24 19:54 Last Admin: 07/26/24 20:03 Dose: 50 mg Documented By: TIA Tramadol HCl (Tramadol Hcl 50 Mg Tablet) 50 mg PO X1 ONE Stop: 07/30/24 06:09 Last Admin: 07/30/24 06:16 Dose: 50 mg Documented By: HOA Tramadol HCl (Tramadol Hcl 50 Mg Tablet) Confirm Administered Dose 50 mg .ROUTE .STK-MED ONE Stop: 07/30/24 06:09 Last Admin: 07/30/24 06:21 Dose: Not Given Documented By: HOA Non-Admin Reason: TASK DUPLICATION See chart Consultations Consultation(s) initiated? (list below): No Diagnosis Shortness of Breath Differential Diagnosis: acute exacerbation of chronic obstructive airways disease, congestive heart failure, community acquired pneumonia, asthma with exacerbation and pulmonary embolism Most likely diagnosis given after review of the tests above:: See chart Admission Indicated Admission indicated?: indicated Explain why admission is indicated or not indicated:: See chart Admission Request Was there a request for admission?: Yes Admission Attestation Admission request attestation: Discussed case with [] from Hospitalist service regarding admission. Discussed patients ED course, exam findings, labs, and radiology results. The Hospitalist [agrees,declines] to accept the patient for admission. Disposition Plan Disposition Plan: Admit Discharge Plan Plan Patient Disposition: Admit Acute Care w/in Hospital Disposition Comment: Hospice at SNF Problem List Clinical Impression: Acute respiratory failure with hypoxia, CHF (congestive heart failure), ESRD (end stage renal disease), care home-acquired pneumonia, UTI (urinary tract infection)
--- NOTE | 2024-07-20 11:48 | XR_ITS ---
Examination: AP chest single view TECHNIQUE: AP portable semiupright chest single view Exam date and time: July 20, 2024 1215 hours Comparison March 09, 2024 INDICATIONS: Shortness of breath productive coughing congestion beginning 3 weeks ago. FINDINGS: Mild CHF Mild enlargement cardiac contour Prominent vascular congestion with perihilar edema Significant bibasilar pneumonia Prominent osteopenia IMPRESSION: Significant bibasilar pneumonia Mild heart failure
--- NOTE | 2024-07-20 11:48 | EKG_ITS ---
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: : 1955 Requested By: Khris Armenta Order Number: [id number] Reading MD: Khris Armenta Measurements Intervals [place] Rate: 103 P: DC: QRS: -57 QRSD: 96 T: 66 QT: 345 QTc: 452 Interpretive Statements ATRIAL FIBRILLATION WITH RAPID VENTRICULAR RESPONSE WITH ABERRANT CONDUCTION OR VENTRICULAR PREMATURE COMPLEXES INDETERMINATE AXIS LOW QRS VOLTAGE IN EXTREMITY LEADS [QRS DEFLECTION < 0.5 mV IN LIMB LEADS] ANTEROSEPTAL MYOCARDIAL INFARCTION , PROBABLY OLD [40+ ms Q WAVE IN V1-V4] Compared to ECG 03/09/2024 06:15:08 Ventricular premature complex(es) now present Aberrant conduction of supraventricular beat(s) now present Indeterminate axis now present Myocardial infarct finding still present /store/S0/[id number].pdf
--- NOTE | 2024-07-20 12:01 | PC.NURSE ---
BIBA FROM DIALYSIS FOR COUGH AND CONGESTION SHE HAS HAD FOR 3 WEEKS. NO DIALYSIS DONE TODAY, REPORTS SHE NORMALLY SITS FOR 3.5 HRS OF DIALYSIS ON MWF. PT ORIGINALLY FROM [facility], REPORTS THEY HAVE BEEN GIVING HER ROBITUSSIN FOR HER COUGH.
[2024-07-20 12:06] LABS: Basophils % (Auto) 1 % (0-2.5); Eosinophils # (Auto) 0.1 Thou/mm3 (0.0-0.5); Eosinophils % (Auto) 2 % (0-10); Hematocrit 39.8 % (36.0-46.0); Hemoglobin 12.5 g/dL (12.0-16.0); Immature Granulocytes % (Auto) 0 % (0-0); Immature Granulocytes Auto 0.02 Thou/mm3 (0.00-0.00); Lymphocytes # (Auto) 1.4 Thou/mm3 (1.0-4.8); Lymphocytes % (Auto) 27 % (10-50); Mean Corpuscular HGB Conc 31.4 g/dl (31.0-37.0); Mean Corpuscular Hemoglobin 31.2 pg (25.0-35.0); Mean Corpuscular Volume 99 fL (80-100); Monocytes # (Auto) 0.3 Thou/mm3 (0.0-0.8); Monocytes % (Auto) 5 % (0-12); Neutrophils # (Auto) 3.4 Thou/mm3 (1.8-7.7); Neutrophils % (Auto) 65 % (37-80); Nucleated Red Blood Cell % 0 /100 WBC (0); Platelet Count 152 Thou/mm3 (140-440); RDW Standard Deviation 58.5 fL (36.4-46.3); Red Blood Count 4.01 Miln/mm3 (4.00-5.20); White Blood Count 5.2 Thou/mm3 (3.6-11.0)
[2024-07-20] MEDS: FUROSEMIDE INJ 10 MG/ML 4ML VIAL 40 MG IVP (12:13)
--- NOTE | 2024-07-20 12:18 | XR_ITS ---
Examination: Venous duplex lower extremity sonogram, bilateral. Date and time of exam: July 20, 2024 1227 hours INDICATIONS: Bilateral leg pain and swelling years, renal cell carcinoma diagnosis, elevated d-dimer on laboratory examination February 28, 2019 Technique: Multiple sonographic images of the deep venous system have been obtained. B-mode/2-D grayscale imaging of vascular structures and Doppler spectral analysis (waveforms) and color performed Both legs are examined. Findings: Deep venous systems do not demonstrate abnormal echogenicity. All visualized deep veins exhibit compressibility. All visualized deep veins exhibit augmentation. Impression: Negative for deep vein thrombosis
[2024-07-20 12:22] LABS: Alanine Aminotransferase 44 U/L (10-49); Alkaline Phosphatase 201 U/L (46-116); Anion Gap 8 (7-16); Aspartate Amino Transferase 65 U/L (0-34); BUN/Creatinine Ratio 6 Ratio (12-20); Bilirubin,Total 0.4 mg/dL (0.3-1.2); Blood Urea Nitrogen 28 mg/dL (9-23); Calcium 9.6 mg/dL (8.3-10.6); Calcium (Corrected) 9.6 mg/dL (8.5-10.1); Carbon Dioxide 32.3 mMol/L (20.0-31.0); Chloride 92 mMol/L (98-107); Creatinine (Component) 4.6 mg/dL (0.6-1.3); Estimated Creatinine Clearance 14.6 mL/min (>60); Globulin 3.9 gm/dL (2.3-3.5); Glucose 199 mg/dL (74-106); Osmolality,Calculated 276 (275-295); Potassium 3.6 mMol/L (3.4-5.1); Sodium 132 mMol/L (136-145); Total Protein 7.9 gm/dL (5.7-8.2); eGFR 10 See Note
[2024-07-20 12:26] LABS: B-Type Natriuretic Peptide 1261 pg/mL (0-100)
[2024-07-20] MEDS: NITROGLYCERIN OINT 2% 1 INCH PACKET TOP (12:40)
[2024-07-20] MEDS: MORPHINE SULF INJ 10 MG/ML VIAL 2 MG IVP (12:43)
[2024-07-20 12:58] LABS: D-Dimer 280 ng/mL (<600)
[2024-07-20 13:12] LABS: Magnesium 2.3 mg/dL (1.6-2.6); Thyroid Stimulating Hormone 118.25 uIU/mL (0.55-4.78)
--- NOTE | 2024-07-20 13:31 | ECHO_ITS ---
Transthoracic Echo Report Ht (in): 68 Wt (lb): 212 Exam Location: ER Status: Emergency Animal Chiropractor: Jena Marrero Indications: Procedure Performed: BP: 119 / 89 HR: 100 Rhythm: Atrial fibrillation Technical Quality: Fair MEASUREMENTS (Male / Female) Normal Values 2D ECHO LV Diastolic Diameter PLAX 5.5 cm 4.2 - 5.9 / 3.9 - 5.3 cm LV Systolic Diameter PLAX 4.4 cm IVS Diastolic Thickness 1.0 cm 0.6 - 1.0 / 0.6 - 0.9 cm LVPW Diastolic Thickness 1.0 cm 0.6 - 1.0 / 0.6 - 0.9 cm LV Relative Wall Thickness 0.4 LVOT Diameter 1.6 cm LA Volume Index 38.1 cm?/m? 16 - 28 cm?/m? Ascending Aorta Diameter 3.3 cm M-MODE Aortic Root Diameter MM 2.6 cm LA Systolic Diameter MM 5.5 cm LA Ao Ratio MM 2.1 AV Cusp Separation MM 1.7 cm DOPPLER AV Peak Velocity 181.0 cm/s AV Peak Gradient 13.1 mmHg AV Mean Gradient 7.0 mmHg AV Velocity Time Integral 28.1 cm LVOT Peak Velocity 97.9 cm/s LVOT Peak Gradient 3.8 mmHg LVOT Velocity Time Integral 14.0 cm LVOT Cardiac Index 1291.7 cm?/min?m? AV Area Cont Eq vti 1.0 cm? AV Area Cont Eq pk 1.1 cm? MV Peak Velocity 211.0 cm/s MV Peak Gradient 17.8 mmHg MV Mean Velocity 103.0 cm/s MV Mean Gradient 5.0 mmHg MV Area PHT 4.2 cm? MR Peak Velocity 487.5 cm/s MR Peak Gradient 95.1 mmHg Mitral E Point Velocity 175.0 cm/s Mitral A Point Velocity 0.7 cm/s Mitral E to A Ratio 258.5 LV E' Lateral Velocity 6.5 cm/s Mitral E to LV E' Lateral Ratio 26.8 LV E' Septal Velocity 7.4 cm/s Mitral E to LV E' Septal Ratio 23.6 TR Peak Velocity 375.0 cm/s TR Peak Gradient 56.3 mmHg FINDINGS Left Ventricle Dilated left ventricle. Mild systolic dysfunction. Mild global hypokinesis. The ejection fraction is visually estimated at 40-45%. Right Ventricle The right ventricle is normal in size and systolic function. The estimated right ventricular systoli c pressure, 62 mmHg. RAP 5. Left Atrium The left atrium is mildly dilated. Right Atrium The right atrium is normal by two-dimensional imaging, color flow and Doppler imaging with no struct ural abnormalities, no thrombus formation present. Atrial Septum The interatrial septum appears normal with no evidence of a shunt. Aorta The aorta is normal by two-dimensional, color flow and Doppler interrogation. Mitral Valve The mitral valve is mildly stenosis, mean gradient 5mmHg. There is moderate mitral valve regurgitat ion. Aortic Valve The aortic valve is trileaflet. Mild sclerosis without stenosis. There is no significant aortic valv e regurgitation. Tricuspid Valve The tricuspid valve is normal by two-dimensional, color flow and Doppler interrogation. There is mil d to moderate tricuspid valve regurgitation. Pulmonic Valve There is mild pulmonic valve regurgitation. Vessels The pulmonary artery appears normal. The inferior vena cava pulmonary and hepatic veins appear katarzyna l. Pericardium The pericardium is normal by two-dimensional imaging. There is no significant pericardial effusion. Other Findings Pleural effusion present. CONCLUSIONS Indication: CHF Dilated LV. Mild Moderate systolic dsyfunction. Mild global hypokiensis. Cannot determine diastolic function due to AFib. Estimated EF 35-40% Normal RV size and function. Estimated RVSP 62mmHg. Atleast moderate PAH Mild LA dilatation. Mild AV sclerosis without stenosis. Severe posterior MAC arnel moderate anterior MAC. Mild MV stenosis with MG 5mmHg. Moderate MR. Moderate TR, Mild PI. Pleural effusion present. Trace or trivial pericardial effuison. Orestes Dudley (Electronically Signed) Final Date: 20 July 2024 17:17
--- NOTE | 2024-07-20 14:29 | EKG_ITS ---
[facility] Test Date: 2024-07-20 Pat Name: BERT ALEJANDRO Department: Room: - Gender: Female Principal Administrative Clerk: : 1955 Requested By: Brandon Montero Order Number: [id number] Reading MD: Brandon Montero Measurements Intervals [place] Rate: 113 P: [place]: QRS: 143 QRSD: 90 T: 60 QT: 314 QTc: 432 Interpretive Statements ATRIAL FIBRILLATION WITH RAPID VENTRICULAR RESPONSE MARKED RIGHT AXIS DEVIATION [QRS AXIS > 100] LOW QRS VOLTAGE IN EXTREMITY LEADS [QRS DEFLECTION < 0.5 mV IN LIMB LEADS] ANTEROSEPTAL MYOCARDIAL INFARCTION , PROBABLY OLD [40+ ms Q WAVE IN V1-V4] Compared to ECG 07/20/2024 12:10:42 Right-axis deviation now present Ventricular premature complex(es) no longer present Aberrant conduction of supraventricular beat(s) no longer present Indeterminate axis no longer present Myocardial infarct finding still present /store/S0/[id number]/ecg/[id number].pdf
[2024-07-20 14:34] LABS: Collection Type, Urine Clean Catch; Squamous Epithelial Cell,Urine 0 /hpf (0-5)
[2024-07-20 14:49] LABS: Bacteria,Urine 1+; Bilirubin,Urine Negative (Negative); Blood,Urine 3+ (Negative); Color,Urine Yellow (Lt Yel-Yel); Glucose, Urine Negative (Negative); Ketones,Urine Negative (Negative); Leukocyte Esterase,Urine Positive (Negative); Nitrite,Urine Negative (Negative); Protein,Urine 2+ (Neg - Trace); RBC,Urine 183 /hpf (0-3); Specific Gravity,Urine 1.013 (1.001-1.035); Urobilinogen,Urine Negative mg/dL (0.0-1.0); WBC,Urine 583 /hpf (0-5)
[2024-07-20] MEDS: ASPIRIN 81 MG CHEW 324 MG PO (14:56)
--- NOTE | 2024-07-20 14:56 | PC.CC ---
Patient is a 68 year-old female who presents to the hospital for a cough. Alley ANDREW made [id number] contact with patient. ASW introduced self, role, and reason for visit. Patient appeared alert and oriented to self, location, and situation. Patient was pleasant and engaged in initial assessment. Patient's medical decision maker is her , Tanmay Hammonds if she were unable to make her own decisions. Patient reports she has been living at [facility] since her heart attack. Patient uses a wheelchair to ambulate and is full assistance with her ADLs. Patient uses oxygen and has access to it at [facility]. Patients primary care provider is Audrey and her physician at [facility] is Dr. Aplpe. Upon discharge patient plans to return to [facility]. surgical services asst to follow up any discharge needs.
[2024-07-20 14:58] LABS: Clarity,Urine Hazy (Clear/Hazy); Culture Indicated,Urine Yes
[2024-07-20] MEDS: CEFEPIME INJ 2 GM in SODIUM CHLORIDE 0.9% (P) 50 ML IV (15:01)
--- NOTE | 2024-07-20 15:07 | PC.NURSE ---
pt.'s spouse Tanmay Hammonds [phone]. here with pt.
--- NOTE | 2024-07-20 15:10 | PC.NURSE ---
unable to start vanco as pt has one iv has limb alert on left upper extremity, and has cefepime running through only iv access, and the two meds are not compatible
--- NOTE | 2024-07-20 15:53 | ESHP_ITS ---
<Statement entered by Brandon Montero MD - 07/20/24 21:46> This patient is a 68-year-old female with past medical history of CHF, ESRD Tuesdayday Tuesday, history of A-fib on Eliquis presented from [facility] with chief complaint of cough and shortness of breath. She reported to have productive cough from past 3 weeks and reported that her daughter visited her in facility and they were also having flulike symptoms. Patient's flu and COVID was negative. Initial vitals showed elevated heart rate and was found to have A-fib with RVR. Therefore we gave her metoprolol 2.5 mg IV x 1. During IV push of metoprolol blood pressure was stable. Roberts sign was positive therefore ultrasound was ordered. Initial labs showed white count stable. Chemistry panel was consistent with ESRD. Troponin I was elevated at 0.120 down trended to 0.102. BNP was elevated. TSH was significantly elevated at 118.25, FT4 0.46, FT3 1.7. UA was dirty with proteinuria and blood and RBCs and WBCs with UTI. Patient was also endorsing symptoms of dysuria and frequency. U tox was not taken. Digoxin level came 0.4. Hepatitis panel showed reactive antibodies for hepatitis A and C. Echocardiogram showed EF 35- 40%, RVSP 62 mmHg. Moderate PAH. Mild LA dilatation. Severe posterior MAC and moderate anterior MAC. Trace or trivial pericardial effusion. Moderate systolic dysfunction. Dilated LV. Venous Doppler was negative. Chest x-ray showed bibasilar pneumonia. We ordered procalcitonin, digoxin level, cocci serology, troponin I every 6 hourly. Due to elevated TSH ordered T3 and T4. Patient was started on ceftriaxone and azithromycin for community-acquired pneumonia. Insulin sliding scale with 5 units 3 times daily with meals. Given concern for myxedema, levothyroxine 25 mcg ACBR was started based on 1.6 mcg/kg body weight and 30% was given. Metoprolol tartrate 25 twice daily was initiated. Will likely start digoxin tomorrow. Amiodarone 400 mg twice daily was held. Will wait on cardiology recommendations. Will follow-up on blood cultures and MRSA screen. Cough syrup and breathing treatments ordered. Patient will call for hemodialysis session per refractory mixer recommendations. Will follow-up on blood cultures, urine cultures, MRSA screen. All labs and orders were reviewed. I saw and examined the patient, and I agree with current management stated by Dr Brittney MD,PGY1. Plan of care was discussed with the attending physician and resident physician. Disclaimer: Despite multiple revisions, due to the dictation software being used, the document bellow may not be free of grammatical errors including phonetic/typographic errors. However, this does not deter from our commitment to providing health care in the patient's best interest in mind. Dr. Lauren MD, PGY 2 Documentation for date of: 07/20/24 HPI History of Present Illness History of present illness: cc: cough and feel hot Patient is a 68-year-old female with a past medical history of hypertension, diabetes mellitus type 2 insulin-dependent, CAD, CHF HFpEF 60-65%, ESRD (MWF), Atrial Fibrillation on Eliquis and history of renal cell carcinoma s/p Left nephrectomy (2022). Patient presented to the emergency room via EMS from dialysis center, patient did not complete dialysis session. Patient felt unwell for the past. Increased perspiration. Subjective fevers at home. Pleuritic chest pain. Productive cough with green and yellow sputum. Patient has had sick contacts around her. Patient is coming from [facility]. Patient denied chest pain. Positive orthopnea, positive dyspnea, and paroxysmal nocturnal orthopnea. Patient sleeps with several pillows to prop her head up at night. Increased bilateral swelling, increased on the right lower extremity with small lesion noted on the lateral tibial area. Patient states she feels constipated and previous bowel movement was this morning but noted to have hard stools. Patient states she takes glargine 40 units daily but is unsure of overall dosage given all her medications are handled by [facility]. Patient is unsure of medication she takes for heart failure atrial fibrillation. Admitted for pneumonia, acute chf exacerbation, and A-fib RVR. ER course Patient's vitals were stable blood pressure 141/78, heart rate fluctuating between 110 and 100, respiratory rate 18, started on nasal cannula 3 L saturating at 98%. Patient was found to have elevated bicarb 32.3, elevated BUN 28, elevated creatinine 4.6, creatinine clearance of 14.6, GFR of 10. Patient is a dialysis patient who missed current session. Dialysis likely. Glucose 199. Elevated AST's and ALTs with alkaline phosphatase elevated. Troponin 0.120, continue to trend. BNP elevated 1261. Chest x-ray showed bilateral pneumonia with pulmonary vascular congestion prominent. EKG showed A-fib with RVR, we will will repeat EKG. Venous Doppler showed negative DVT. Medication given in the emergency room Lasix 40 mg x 1, nitroglycerin, cefepime, morphine, aspirin 325. PMH: Hypertension, hyperlipidemia, CAD, CHF, ESRD (Tuesday) diabetes mellitus type 2 insulin-dependent atrial fibrillation on Eliquis. Past Surgical History: Hernia Nephrectomy (2022) Home Medication: Per chart review, patient was unsure of medication she was on as all her medication is provided by SNF Lantus 40 units (?) Metoprolol tartrate 25 mg PO once a day Amiodarone 400 mg BID Digoxin 0.125 mg PO DAily Docusate Melatonin Tramadolol Sevelamer 800 mg TID No Eliquis listed but noted on EMR. NO Lasix noted on medication list, X1 dose given in ER, revaluate after dialysis in AM Allergies: Code Status: Full Code Review of Systems Review of Systems Narrative Review of Systems: General appearance: NO weight change, NO fatigue, YES weakness, SUBJECTIVE fever, NO chills, NO night sweats, YES cough (productive) Skin: NO rash, NO itching, NO sores, NO moles HEENT: NO Trauma, NO nausea, NO vomiting, NO visual changes, NO blurry vision, NO double vision, NO tinnitus, NO vertigo, NO ear discharge, NO rhinorrhea, NO stuffiness, NO sneezing, NO allergy, NO epistaxis. NO Hoarseness, NO sore throat, NO swollen neck. Cardiac: YES Palpitations, YES dyspnea on exertion, YES orthopnea, YES paroxysmal nocturnal dyspnea, YES edema Respiratory: NO Shortness of Breath, NO Wheezing, NO Cough, NO Sputum, NO hemoptysis GI:NO appetite, NO nausea, NO vomiting, NO dysphagia, NO changes in bowel frequency, NO stool color, NO diarrhea, NO constipation, NO hemetemesis, NO hemorrhoids, NO melena, NO hematechezia, NO abdominal pain, NO jaundice Renal: NO frequency, NO hesitancy, NO urgency, NO hematuria, NO nocturia, NO incontinence, Yes dysuria. MSK: NO muscle weakness, NO gout, NO arthritis, NO muscle stiffness Neuro: NO headaches, NO tremors, NO weakness, NO paralysis, NO seizures, NO loss of consciousness, NO numbness. Hem: NO anemia, NO easy bruising/bleeding, NO petechiae, NO purpura Endo: NO heat/cold intolerance, NO excessive sweating, NO polyuria, NO polydipsia, NO polyphagia, NO thyroid problems, YES diabetes Pysch: NO mood, NO anxiety, NO depression Exam Vital Signs Temp Pulse Resp BP Pulse Ox O2 Del Method O2 Flow Rate 97.7 F 110 H 18 119/89 H 98 Nasal Cannula 1 07/20/24 14:26 07/20/24 14:26 07/20/24 14:26 07/20/24 14:26 07/20/24 14:07/20/24 11:31 07/20/24 14:26 Narrative Exam General Appearance: Alert & Oriented X3, well-nourished female who is lying in bed in mild discomfort, unable to recline back in bed. HEENT: Skull symmetrical and atraumatic. Conjunctivae pale pink and moist. Pupils equal, round, reactive to light and accommodation (PERRL). External ear without lesion or discharge. Straight, nares patient, mucosa pink, no discharge. Cardio: Normal Rate and Rhythm with S1 and S2 heart sounds (previously in afib). No murmurs or extra heart sounds auscultated. No bruits on carotid auscultation. Peripheral edema, +2-worse on right lower extremity. No JVD noted. Lungs: Symmetric with good expansion. Chest and back non-tender. Breath sounds vesicular without crackles, wheezing or rhonchi Abdomen: Non-tender, Non-distended, Normal Reactive Bowel Sounds, no suprapubic tenderness with palpation Neuro: Alert, cooperative, oriented to person, place, and time. Speech clear. CN grossly intact. Upper motor strength 5/5 and Lower motor strength 5/5. Sensation intact. Results: Labs 07/21/24 10:05 07/21/24 05:19 Labs: Short CBC 07/20/24 Range/Units 11:54 WBC 5.2 (3.6-11.0) Thou/mm3 Hgb 12.5 (12.0-16.0) g/dL Hct 39.8 (36.0-46.0) % Plt Count 152 (140-440) Thou/mm3 BMP 07/20/24 11:54 Sodium 132 L Potassium 3.6 Chloride 92 L Carbon Dioxide 32.3 H BUN 28 H Creatinine 4.6 H* Glucose 199 H Calcium 9.6 Cardiac Enzymes 07/20/24 Range/Units 11:54 Troponin I 0.120 H* (0.0-0.045) ng/mL Liver Function 07/20/24 Range/Units 11:54 Total Bilirubin 0.4 (0.3-1.2) mg/dL AST 65 H (0-34) U/L ALT 44 (10-49) U/L Alkaline Phosphatase 201 H (46-116) U/L Albumin 4.0 (3.4-4.8) gm/dL Urine 07/20/24 Range/Units 14:15 Urine Color Yellow (Lt Yel-Yel) Urine Clarity Hazy (Clear/Hazy) Urine pH 7.0 (5.0-7.0) Ur Specific [place] 1.013 (1.001-1.035) Urine Protein 2+ A (Neg - Trace) Urine Glucose (UA) Negative (Negative) Quality Measures Quality Measures VTE prophylaxis Advance care planning discussed with:: other Medications Home Medications and Allergies Home Medications ?Medication ?Instructions ?Recorded ?Confirmed ?Type insulin glargine 100 unit/mL (3 40 unit subcut QAM 02/28/19 05/25/23 History mL) subcutaneous pen (Basaglar KwikPen U-100 Insulin) blood sugar diagnostic (True 10/26/19 04/21/23 History Metrix Glucose Test Strip) pen needle, diabetic 29 gauge x 10/26/19 04/21/23 History 1/2 (BD Ultra-Fine Original Pen Needle) bisacodyl 10 mg rectal suppository 10 mg IA Q72H PRN Constipation 02/27/20 05/25/23 History (Dulcolax (bisacodyl)) magnesium hydroxide 400 mg/5 mL 30 ml PO Q72H PRN Constipation 02/27/20 05/25/23 History oral suspension (Milk of Magnesia) sodium phosphates 19 gram-7 118 ml IA Q72H PRN Constipation 02/27/20 05/25/23 History gram/118 mL enema (Fleet Enema) linagliptin 5 mg tablet (Tradjenta) 5 mg PO QDAY 04/21/20 05/25/23 History aspirin 81 mg tablet,delayed 81 mg PO QDAY 08/19/21 04/21/23 History release ferrous sulfate 325 mg (65 mg 325 mg PO TID 08/19/21 05/25/23 History iron) tablet (FeroSul) loratadine 10 mg tablet 10 mg PO QDAY 08/19/21 04/21/23 History magnesium oxide 400 mg PO TID 08/19/21 04/21/23 History melatonin 3 mg tablet 3 mg PO HS PRN Insomnia 08/19/21 07/21/24 History mirtazapine 15 mg tablet (Remeron) 7.5 mg PO HS 08/19/21 04/21/23 History acetaminophen 325 mg tablet 650 mg PO [id number] PRN Pain (Scale 04/21/22 05/25/23 History (Tylenol) Score 1-3) amino acids-protein hydrolysate 15 1 ea TIDWM 04/21/22 05/25/23 History gram-100 kcal/30 mL oral liquid pkt atorvastatin 40 mg tablet 40 mg PO HS 04/21/22 05/25/23 History sevelamer HCl 800 mg tablet 1,600 mg PO TIDWM 04/21/22 07/21/24 History diltiazem HCl 60 mg tablet 60 mg PO BID 05/25/23 05/25/23 History diphenhydramine HCl 25 mg tablet 25 mg PO Q8HR PRN Itching 05/25/23 05/25/23 History (Benadryl Allergy) docusate sodium 250 mg capsule 250 mg PO DAILY PRN Constipation 05/25/23 07/21/24 History glucagon 1 mg solution for 1 mg subcut 05/25/23 History injection (Glucagon Emergency Kit) ondansetron HCl 4 mg tablet 4 mg PO Q6H PRN Nausea And Vomiting 05/25/23 05/25/23 History tramadol 50 mg tablet 50 mg PO Q6H PRN Pain (Scale Score 05/25/23 07/21/24 History 4-6) amiodarone 200 mg tablet 400 mg PO BID 07/21/24 07/21/24 History digoxin 125 mcg (0.125 mg) tablet 125 mcg PO QDAY 07/21/24 07/21/24 History metoprolol tartrate 25 mg tablet 25 mg PO BID 07/21/24 07/21/24 History Allergies Allergy/AdvReac Type Severity Reaction Status Date / Time adhesive Allergy Mild Redness of Verified 07/20/24 12:00 Skin adhesive tape Allergy Mild Redness of Verified 07/20/24 12:00 Skin Visit Medications Aspirin (Aspirin Ec 81 Mg Tabec) 81 mg PO X1 ONE Stop: 07/21/24 09:01 Dextrose (Dextrose 50%-Water Inj 50 Ml Syringe) 25 ml IV Q15MIN PRN PRN Reason: BG 50-70 responsive npo pt Stop: 08/19/24 15:45 Dextrose (Dextrose 50%-Water Inj 50 Ml Syringe) 50 ml IV Q15MIN PRN PRN Reason: BG <50 OR BG <70 & pt unresponsive Stop: 08/19/24 15:45 Glucagon (Glucagon Inj 1 Mg Vial) 1 mg IM Q15MIN PRN PRN Reason: BG <70, and no IV access Vancomycin HCl 2,000 mg/ (Sodium Chloride) 500 mls @ 150 mls/hr IV X1 ONE Stop: 07/20/24 17:05 Ceftriaxone Sodium/Dextrose (Rocephin/D5w 1gm Iv Premix) 50 mls @ 100 mls/hr IV QDAY KOTA Stop: 07/28/24 08:59 Azithromycin 500 mg/ Sodium (Chloride) 250 mls @ 250 mls/hr IV QDAY KOTA Stop: 07/28/24 08:59 Insulin Glargine (Insulin Glargine (Lantus) 5 Unit/0.05 Ml (Per 5 Units)) 15 unit SC HS KOTA Stop: 08/19/24 20:59 Insulin Human Lispro (Insulin Lispro (Admelog) 1 Unit/0.01 Ml Unit) 0 unit SC ACHS KOTA; Protocol Stop: 08/19/24 16:59 Insulin Human Lispro (Insulin Lispro (Admelog) 1 Unit/0.01 Ml Unit) 5 unit SC ACHS KOTA Stop: 08/19/24 16:59 Ipratropium [place] (Ipratropium Rt 0.5 Mg/ 2.5 Ml Nebu) 0.5 mg INH Q6HRRT KOTA Stop: 08/19/24 18:59 Levalbuterol HCl (Levalbuterol Rt 0.63 Mg/3 Ml Nebu) 0.31 mg INH Q6HRRT [facility] Stop: 08/19/24 18:59 Metoprolol Tartrate (Metoprolol Tartrate 25 Mg Tablet) 25 mg PO BID KOTA Stop: 08/19/24 20:59 Polyethylene Glycol (Polyethylene Glycol 17 Gm Packet) 17 gm PO QDAY KOTA Stop: 08/19/24 15:44 Sennosides (Senna Tablet) 1 tab PO QDAY PRN; Protocol PRN Reason: CONSTIPATION Stop: 08/19/24 15:40 Discontinued Medications Aspirin (Aspirin 81 Mg Chew) 324 mg PO X1 ONE Stop: 07/20/24 13:28 Last Admin: 07/20/24 14:56 Dose: 324 mg Furosemide (Furosemide Inj 10 Mg/Ml 4ml Vial) 40 mg IVP X1 ONE Stop: 07/20/24 11:49 Last Admin: 07/20/24 12:13 Dose: 40 mg Azithromycin 500 mg/ Sodium (Chloride) 250 mls @ 250 mls/hr IV X1 ONE Stop: 07/20/24 14:31 Last Admin: 07/20/24 15:31 Dose: Not Given Ceftriaxone Sodium 1,000 mg/ (Sodium Chloride) 50 mls @ 100 mls/hr IV X1 ONE Stop: 07/20/24 14:01 Last Admin: 07/20/24 15:31 Dose: Not Given Cefepime HCl 2 gm/ Sodium (Chloride) 50 mls @ 100 mls/hr IV X1 ONE Stop: 07/20/24 14:15 Last Admin: 07/20/24 15:01 Dose: 100 mls/hr Morphine Sulfate (Morphine Sulf Inj 10 Mg/Ml Vial) 2 mg IVP X1 ONE Stop: 07/20/24 12:19 Last Admin: 07/20/24 12:43 Dose: 2 mg Nitroglycerin (Nitroglycerin Oint 2% 1 Inch Packet) 1 inch TOP X1 ONE Stop: 07/20/24 12:19 Last Admin: 07/20/24 12:40 Dose: 1 inch Sodium Chloride (Sodium Chloride Rt 10% 15 Ml Nebu) 5 ml INH X1 ONE Stop: 07/20/24 15:37 Assessment & Plan Plan Patient is a 68-year-old female with a past medical history of hypertension, diabetes mellitus type 2 insulin-dependent, CAD, CHF HFpEF 60-65%, ESRD (MWF), Atrial Fibrillation on Eliquis and history of renal cell carcinoma s/p Left nephrectomy (2022) who was admitted on who was admitted for acute chf exacerbation, pneumonia, and Atrial Fibrilation w/ RVR. # Community-acquired pneumonia likely secondary to gram-positive bacteria Patient presented with increased cough for the past 3 weeks that has been productive. Likely send secondary to viral superimposed bacteria given bilateral component. Likely gram-positive cocci suggest strep pneumoniae. Cocci less likely. PE cannot be ruled out as wells criteria 6 points (16% of PE in the ED). Venous U/S of Lower extremity Negative. SC less likely given no st elevation on EKG but troponins are slighlty elevated at 0.12. Following. No chest pain. COVID flu negative. Plan Ceftriaxone 1 g and azithromycin 500 daily (07/20/2024) Sputum culture Chest physio Cough syrup MRSA screen CBC CMP #Atrial fibrillation with RVR # History of atrial fibrillation on amiodarone and digoxin at home. Patient has a past medical history of atrial fibrillation. Home medication of amiodarone 400 twice daily and digoxin 125 mcg daily. Currently holding amiodarone twice daily given elevated TSH as it can cause hyper or hypothyroidism. Pending digoxin levels. Pending final recommendations from cardiology. Second EKG ordered, to confirm A-fib with RVR. RVR likely triggered by pneumonia, CHF exacerbation and lack of dialysis completion. Plan Hold Amiodarone 400 BID Hold Digoxin, pending levels Start Metoprolol Succinate 50 mg HS Start Digoxin 0.125 mg X 1 on 07/21/2024 and then continue every other day Cardiology Consulted, Dr. Ring, appreciate recommendations. #Acute CHF exacerbation likely secondary to pneumonia #HFpEF 60 to 65% #Elevated troponin Has a past medical history of CHF. No Lasix noted for patient. Preserved ejection fraction of 55 to 60% on 03/18/2023. Pulmonary pressure noted 31 mmHg. Pending new echo. Lasix 40 mg x 1 IV push given. Patient patient scheduled for dialysis today, reevaluate tomorrow's fluid status. Patient still produces some urine. Positive Orthopnea. Positive Paroxsymal Orthopnea. Requires several pillows to sleep. Wheelchair bound. Lower Pedal edema noted. Lower extremeity wound noted. BNP 1261. Prominent vascular congestion. NYHA Class: IV Plan: -Metoprolol Succinate 50 HS -Lasix 40 X 1, re-evaluate after dialysis in AM -Echo -TSH -Lipid Panel -A1c -K>4 and Mg >2 -Fluid Restriction and Sodium Restriction 2 g per day -work toward GDMT -SpO <90%, support PRN -Daily Weights, Strict Ins and Outs, Fluid Striction (1800 ml), Sodium Restriction 2 grams per day -wound care -Cardiology Consult, appreciate recommendations. #hypothyroidism, new diagnosis Patient presented with a TSH level of 118.25 and a T4 of 0.46 and 1.7 T3. Levothyroxine started 25 mcg p.o. before meals. Medication induced versus euthyroidism versus myxedema coma (less likely) Plan Levothyroxine 25 mcg p.o. before meals Follow-up TSH #ESRD (Tuesday) Patient has a past medical history of dialysis likely secondary to nephrectomy from renal cell carcinoma (2022). Patient did not complete dialysis today. Inpatient dialysis, Dr. Ventura consulted. Plan Renally dose medication Avoid nephrotoxins Dialysis inpatient 07/20/2024 Phosphorus Follow-up with phosphate consider restarting the Sevelamer, based on nephrology recommendations Consult Nephrology, Appreciate Recommendations, Dr. Ventura #Diabetes mellitus type 2 insulin-dependent Past medical history of diabetes mellitus with Lantus 40 units daily. Previous A1c on 04/07/2023 showed 5%. Glucose on admission 199 Plan Start Lantus 15 units Lispro 5 units AC at bedtime Sliding scale ACHS Diet carbohydrate consistent low #Urinary tract infection, complicated Patient presented with a positive UA showing positive esterase, positive WBCs and +1 bacteria. Past medical history of UTIs. Dysuria positive. Negative for suprapubic tenderness. Plan -Pending urine cultures -Dual coverage from ceftriaxone 1 g daily-07/20/2024 # History of hyperlipidemia # History of CAD Home medication atorvastatin. Currently holding Plan Lipid panel a.m. Follow AST's ALT's Consider restarting tomorrow # History of hypertension Home medication of metoprolol tartrate 25 mg BID as home medication Plan -Metoprolol Tartrate 25 mg BID D/C -Metoprolol Succinate 50 mg PO HS-->BP & CHF GDMT Health Maintenance: Disp: Pt is currently admitted to floors for further management of pneumonia and Afib w/ rvr , awaiting sputum culture FEN: DVT: on subQ heparin Code: Full/DNR - The patient's plan was discussed with attending Dr. Dennis and senior residents Dr. Lauren Lugo MD PGY1 Internal Medicine
[2024-07-20] MEDS: METOPROLOL TARTRATE INJ 1 MG/ML AMP 5 ML 2.5 MG IVP (16:15)
--- NOTE | 2024-07-20 16:17 | ESCONSULT_ITS ---
History of Present Illness Data of Consult Consult date: 07/20/24 Requesting Physician: Anselmo Dennis DO Primary Care Provider: Lorraine Ventura MD Consult Narrative Reason for consult: ESRD History of present illness: Ms. Nguyễn is a 68-year-old who is well-known to me with a past medical history significant for hypertension, diabetes mellitus type 2 insulin- dependent, CAD, CHF HFpEF 60-65%, ESRD (MWF), Atrial Fibrillation on Eliquis and history of renal cell carcinoma s/p Left nephrectomy (2022) has been having significant fluid overload and sometimes receiving 4 times weekly dialysis presented to the emergency department with weakness, shortness of breath and high fevers. In the emergency department she was diagnosed with extensive bilateral pneumonia and also severe pulmonary vascular congestion. EKG showed A-fib with RVR. Labs showed WBC 5.2, hemoglobin 12.5, platelets 152. Sodium 132, potassium 3.6, BUN 28, creatinine 4.6, blood sugar 199, calcium 9.6, AST 65, ALT 44, alk phos 201, troponin 0.12, BNP [birth year]1961, albumin 4, TSH 118, Pro-Devon 0.43, urinalysis shows significant amount of blood and 1+ bacteria. Did level 0.4. Hepatitis STUART positive, hep C positive Admitted for pneumonia, acute chf exacerbation, and A-fib RVR, UTI Medication given in the emergency room Lasix 40 mg x 1, nitroglycerin, cefepime, morphine, aspirin 325. Nephrology consultation requested in view of need for dialysis. Patient currently on dialysis cc:: cc: Anselmo Dennis DO Review of Systems Review of Systems Narrative Review of Systems: CONSTITUTIONAL: Patient complains of fever and chills, weakness HEENT: Denies any visual disturbances or hearing problems. CARDIOVASCULAR: Patient denies any chest pain. c/o shortness of breath, swelling in the lower extremities. PULMONARY: Patient c/o shortness of breath, cough. GASTROINTESTINAL: Patient denies any abdominal pain, constipation, nausea, vomiting, diarrhea. GENITOURINARY: Patient denies any urinary symptoms of burning or frequency or hematuria, denies any form in the urine. SKIN: Denies any rash. MUSCULOSKELETAL: ++ Arthritis NEUROLOGICAL: Denies any neurological problems of strokes, seizures or confusion. Denies any memory problems. PSYCHIATRIC: Denies any depression or anxiety. LYMPHATICS : No lymphadenopathy Past Medical History Past Medical History NEUROLOGIC: Negative Neurological Disorders or Seizures CARDIAC: Positive Cardiac Disorders, Myocardial Infarction, Atrial Fibrillation, Coronary Artery Disease, Congestive Heart Failure, Edema and Hypertension RESPIRATORY: Positive Pneumonia; Negative Chronic Obstructive Pulmonary Disease (COPD) or Asthma GASTROINTESTINAL: Positive Gastrointestinal Disorders, Gastrointestinal Bleed and Obesity; Negative Hepatitis GENITOURINARY: Positive Genitourinary Disorders, Renal Disease and Dialysis (WMF) MUSCULOSKELETAL: Negative Musculoskeletal Disorders ENT: Positive Cataracts ENDOCRINE: Positive Endocrine Disorders, Diabetes Mellitus Type 2 and Hypothyroidism; Negative Diabetes Mellitus Type 1 HEMATOLOGIC: Negative Blood Disorders or Sickle Cell Disease PSYCHO/SOCIAL: Positive Depression and Anxiety OTHER HISTORY: Positive Falls and Chicken Pox; Negative Autoimmune Disease, Blood Transfusions, Blood Transfusion Reaction, Anesthesia Reactions, MRSA, Vancomycin-Resistant Enterococci, Human Immunodeficiency Virus (HIV), Measles, Mumps, Rubella ([place] Measles), Pertussis, Clostridium Difficile or Cancer Family History FAMILY HISTORY: Positive Family Cardiac Disorders and Family Cancer Surgical History SURGICAL: Positive Nephrectomy (left 2023) and Tubal Ligation; Negative Cardiac Surgery Social History SMOKING STATUS: Former smoker SECOND HAND EXPOSURE: No SUBSTANCE USE: does not use Meds Home Medications and Allergies Home Medications ?Medication ?Instructions ?Recorded ?Confirmed ?Type insulin glargine 100 unit/mL (3 40 unit subcut QAM 02/28/19 05/25/23 History mL) subcutaneous pen (Basaglar KwikPen U-100 Insulin) blood sugar diagnostic (True 10/26/19 04/21/23 History Metrix Glucose Test Strip) pen needle, diabetic 29 gauge x 10/26/19 04/21/23 History 1/2 (BD Ultra-Fine Original Pen Needle) bisacodyl 10 mg rectal suppository 10 mg NJ Q72H PRN Constipation 02/27/20 05/25/23 History (Dulcolax (bisacodyl)) magnesium hydroxide 400 mg/5 mL 30 ml PO Q72H PRN Constipation 02/27/20 05/25/23 History oral suspension (Milk of Magnesia) sodium phosphates 19 gram-7 118 ml NJ Q72H PRN Constipation 02/27/20 05/25/23 History gram/118 mL enema (Fleet Enema) linagliptin 5 mg tablet (Tradjenta) 5 mg PO QDAY 04/21/20 05/25/23 History aspirin 81 mg tablet,delayed 81 mg PO QDAY 08/19/21 04/21/23 History release ferrous sulfate 325 mg (65 mg 325 mg PO TID 08/19/21 05/25/23 History iron) tablet (FeroSul) loratadine 10 mg tablet 10 mg PO QDAY 08/19/21 04/21/23 History magnesium oxide 400 mg PO TID 08/19/21 04/21/23 History melatonin 3 mg tablet 3 mg PO HS PRN Insomnia 08/19/21 07/21/24 History mirtazapine 15 mg tablet (Remeron) 7.5 mg PO HS 08/19/21 04/21/23 History acetaminophen 325 mg tablet 650 mg PO [id number] PRN Pain (Scale 04/21/22 05/25/23 History (Tylenol) Score 1-3) amino acids-protein hydrolysate 15 1 ea TIDWM 04/21/22 05/25/23 History gram-100 kcal/30 mL oral liquid pkt atorvastatin 40 mg tablet 40 mg PO HS 04/21/22 05/25/23 History sevelamer HCl 800 mg tablet 1,600 mg PO TIDWM 04/21/22 07/21/24 History diltiazem HCl 60 mg tablet 60 mg PO BID 05/25/23 05/25/23 History diphenhydramine HCl 25 mg tablet 25 mg PO Q8HR PRN Itching 05/25/23 05/25/23 History (Benadryl Allergy) docusate sodium 250 mg capsule 250 mg PO DAILY PRN Constipation 05/25/23 07/21/24 History glucagon 1 mg solution for 1 mg subcut 05/25/23 History injection (Glucagon Emergency Kit) ondansetron HCl 4 mg tablet 4 mg PO Q6H PRN Nausea And Vomiting 05/25/23 05/25/23 History tramadol 50 mg tablet 50 mg PO Q6H PRN Pain (Scale Score 05/25/23 07/21/24 History 4-6) amiodarone 200 mg tablet 400 mg PO BID 07/21/24 07/21/24 History digoxin 125 mcg (0.125 mg) tablet 125 mcg PO QDAY 07/21/24 07/21/24 History metoprolol tartrate 25 mg tablet 25 mg PO BID 07/21/24 07/21/24 History Allergies Allergy/AdvReac Type Severity Reaction Status Date / Time adhesive Allergy Mild Redness of Verified 07/20/24 12:00 Skin adhesive tape Allergy Mild Redness of Verified 07/20/24 12:00 Skin Exam Vital Signs Temp Pulse Resp BP Pulse Ox O2 Del Method O2 Flow Rate 36.0 C 83 20 107/63 93 L Nasal Cannula 2 07/21/24 04:00 07/21/24 06:33 07/21/24 06:33 07/21/24 04:00 07/21/24 06:33 07/21/24 04:00 07/21/24 06:33 Narrative Exam GENERAL APPEARANCE: Patient currently seen in dialysis NECK: Neck supple, no JVD or bruit CARDIOVASCULAR: Heart regular, no murmurs LUNGS/CHEST: Bilateral crackles ABDOMEN: Soft, nontender, nondistended. No masses. Normal bowel sounds. EXTREMITIES: Significant edema in the legs SKIN: Skin exam normal without any rashes . +AVF MUSCULOSKELETAL: Musculoskeletal exam normal PSYCHIATRIC: Normal mood, affect LYMPHATICS: No lymphadenopathy noted NEUROLOGICAL : No neurological deficits Results Labs 07/21/24 05:19 07/20/24 11:54 Labs: Short CBC 07/20/24 07/21/24 Range/Units 11:54 05:19 WBC 5.2 6.0 (3.6-11.0) Thou/mm3 Hgb 12.5 10.0 L D (12.0-16.0) g/dL Hct 39.8 31.4 L (36.0-46.0) % Plt Count 152 141 (140-440) Thou/mm3 [facility] 07/20/24 11:54 Sodium 132 L Potassium 3.6 Chloride 92 L Carbon Dioxide 32.3 H BUN 28 H Creatinine 4.6 H* Glucose 199 H Calcium 9.6 Cardiac Enzymes 07/20/24 07/20/24 07/21/24 Range/Units 11:54 18:05 00:32 Troponin I 0.120 H* 0.102 H* 0.082 H* (0.0-0.045) ng/mL Liver Function 07/20/24 Range/Units 11:54 Total Bilirubin 0.4 (0.3-1.2) mg/dL AST 65 H (0-34) U/L ALT 44 (10-49) U/L Alkaline Phosphatase 201 H (46-116) U/L Albumin 4.0 (3.4-4.8) gm/dL Urine 07/20/24 Range/Units 14:15 Urine Color Yellow (Lt Yel-Yel) Urine Clarity Hazy (Clear/Hazy) Urine pH 7.0 (5.0-7.0) Ur Specific [place] 1.013 (1.001-1.035) Urine Protein 2+ A (Neg - Trace) Urine Glucose (UA) Negative (Negative) Assessment & Plan Additional Assessment & Plan Additional Plan: 67 y/o female patient with significant medical history for ESRD on HD (MWF), DM2, HTN, CAD, Afib on Eliquis, CHF and left renal neoplasm s/p nephrectomy (on 05/14/23) BIBA to ED for shortness of breath, fever . nephrology was consulted due to patient's ESRD. #ESRD on hemodialysis # Left Nephrectomy- Renal neoplasm -Patient currently seen on dialysis. Tolerating dialysis without any problems. Hemodialysis for 3 hours, 2K, ultrafiltration 2-3 L, Epogen 6000, no heparin ordered. Plan of care discussed with the dialysis nurse. Please see dialysis flowsheet for further details. -Follow up CBC and CMP # Pneumonia, UTI-on antibiotics # Hypothyroidism --add levothyroxine #DM -Accu-Cheks, sliding scale, diabetic diet #Afib-patient used to be on Eliquis #CAD// CHF--cardiology was consulted Thank you Gary for allowing me to participate in the care of Ms. Izaguirre
[2024-07-20 16:19] LABS: HIV (1&2) Antibody Rapid Non-Reactive
[2024-07-20] MEDS: HYDROcodone/APAP 5/325 TABLET 1 TAB PO (16:23)
--- NOTE | 2024-07-20 16:26 | PC.NURSE ---
YARD MANAGER AT BEDSIDE TO TAKE PT TO DIALYSIS, REQUEST THAT INFUSIONS BE PAUSED FOR DIALYSIS. RN THEN ASKED IF PT IS DUE FOR PAIN MED, THIS RN INFORMED THAT PT IS ADMIT AND NO PAIN MED IS ORDERED, ASKED IF ABLE TO MEDICATE AT DIALYSIS, THIS RN WAS TOLD NO. YARD MANAGER THEN WENT AND ASKED ED PROVIDER FOR PAIN MED ORDER, AND ASKED THIS RN TO PULL AND GIVE. PT WAS MEDICATED BY THIS RN FOR PAIN PRIOR TO GOING TO DIALYSIS. VANCO IS STILL NEEDED ONCE PT RETURNS TO FLOOR.
[2024-07-20 16:35] LABS: Digoxin 0.4 ng/mL (0.8-2.0); Free T3 1.7 pg/mL (2.3-4.2); Free T4 (Free Thyroxine) 0.46 ng/dL (0.89-1.76); Phosphorous 3.6 mg/dL (2.4-5.1); Procalcitonin 0.43 ng/ml (0.0-0.49)
[2024-07-20 17:04] LABS: Hepatitis A Antibody IgM Reactive (Non React); Hepatitis B Core Antibody IgM Non Reactive (Non React); Hepatitis B Surface Antigen Non Reactive (Non React); Hepatitis C Antibody Reactive (Non React)
[2024-07-20] MEDS: ALBUMIN HUMAN 25% IVPB 25 GM/100 ML BTL IV (17:20)
--- NOTE | 2024-07-20 17:21 | PC.NURSE ---
BP dropped, albumin 25% given IVP.
--- NOTE | 2024-07-20 17:50 | ESCONSULT_ITS ---
<Statement entered by Orestes Dudley MD - 07/22/24 05:09> I have personally seen and examined the patient separately on the above date of service and discussed the plan of care with the resident. I reviewed the resident Dr. Steiner consultation progress note and agree with the resident findings and plan in the note above and have also edited the documentation to reflect my findings and plan. A 67-year-old female with a past medical history of cardiac arrest status post VT or VF in October 2019 [unclear etiology-questionable digoxin toxicity, paroxysmal atrial fibrillation, questionable CAD and documented in the chart but no cath, history of systolic heart failure in 2019 with an EF of 40%, essential hypertension, diabetes mellitus, end-stage renal disease on hemodialysis, status post left nephrectomy for left renal mass, obesity, chronic anemia in the setting of CKD who has been resident of the residential for the past 5 years was sent in for further evaluation of generalized during a dialysis session. As per the patient she has been extremely weak and has been experiencing fatigue for the last few days. Blood pressure was low slightly during the dialysis and patient was sent to the hospital for further evaluation. Patient denies any Chest pain or chest pressure or palpitations during my examination. Denied any kind of fever or chills but does endorse shortness of breath and does have significant leg swelling on exam. Denied any cough or sputum production. Patient does follow-up with basic sciences dean in [place] but have not been clear. Other part of the history includes patient did have episode of wide-complex tachycardia or VT/VF cardiac arrest in 2019 at which time she was intubated and seen by cardiology at that point of time but no clear etiology has been mentioned in the chart. Patient possibly had digoxin toxicity and was given Digibind and during that admission patient was discharged home. Since then patient apparently and has been living in the residential as a possible anoxic brain damage. Patient does have a history of permanent atrial fibrillation versus chronic persistent atrial fibrillation has been on amiodarone as well as digoxin for years patient does have a significant family history of open heart surgery and heart disease. Resident of [facility] and denies any kind of alcohol drugs or smoking. Initial set of vitals in the emergency department showed temperature 97.6 afebrile, heart rate of 90/min, respiratory rate improved with a blood pressure of 114/81 mmHg and saturation of 100% on 3 L nasal cannula. Patient has significant leg swelling on exam and appeared to have almost anasarca. Patient was alert and responsive. Labs showed WBC of 4.2, hemoglobin 12.5, platelets of 152 BUN of 28 creatinine of 4.6, sodium of 132, potassium of 3.6, UA negative, initial troponin was 0.12 which is similar to before LFTs showed mildly elevated AST at 65 and alk phos of 201, albumin of 2.0. UA was negative. Chest x-ray with mild vascular congestion but no evidence of pneumonia. EKG in the emergency department showed atrial fibrillation with RVR with a rate of 103 bpm, low voltage limb leads and Q waves in the anteroseptal leads from V1-V4 unchanged from before. Patient had significantly elevated TSH at holiday weekend and free T4 was also low at 0.4. Plan: 1. Atrial fibrillation with RVR 2. Mild elevated troponins-mostly NSTEMI type II 3. Severe hypothyroidism Patient presented with fatigue as well as generalized weakness and low during dialysis session and here patient EKG did show some atrial fibrillation with RVR but the heart rate was around 110-120s with RVR at 90 bpm with Q waves in the anteroseptal leads from V1 to unchanged from before and low voltage in the limb leads but no other acute ST-T changes. Patient has been diagnosed of atrial fibrillation for at least 5 to 6 years ago and has been on amiodarone as well as digoxin to the point of time. Given the elevated LFTs stop the amiodarone and repeat the TSH for now and continue to workup for hyperthyroidism which could explain her symptoms. Chads Vascor is high and recommended anticoagulation with heparin drip if any procedures planned otherwise can be transitioned to Eliquis 2.5 mg twice daily. Metoprolol is a 50 mg once daily for rate control. Check digoxin level and continue at home dose if level normal. Stop amiodarone completely for given the elevated TSH and can continue digoxin based on the levels. Elevated troponins at 0.12?patient did have similar troponin elevation during her previous admissions even in 2022. Mostly NSTEMI type II in the setting of demand ischemia. Recommend to continue aspirin high intensity statin as well as beta-patti blood pressure is permissible. HbA1c was 6.14 TSH elevated at 180 on admission. Lipid profile showed HDL 34 LDL of 24 and total cholesterol 69. 4. History of systolic congestive heart failure-EF was around 40% in 2020. Echo was repeated showed Dilated LV. Mild Moderate systolic dsyfunction. Mild global hypokiensis. Cannot determine diastolic function due to AFib. Estimated EF 35-40% Normal RV size and function. Estimated RVSP 62mmHg. Atleast moderate PAH. Mild LA dilatation. Mild AV sclerosis without stenosis. Severe posterior MAC arnel moderate anterior MAC. Mild MV stenosis with MG 5mmHg. Moderate MR. Moderate TR, Mild PI. Pleural effusion present. Trace or trivial pericardial effuison Patient is significant leg edema and has at least 3+ leg edema bilaterally. Patient is a dialysis patient and further fluid management as per nephrology. Strict input output, daily weights and 2 g sodium diet. 5. History of cardiac arrest: Unclear etiology for the cardiac arrest s/p resuscitation in 2020. There was questionable VT or VF but no rhythm strip seen from 2020. There was a question of digoxin toxicity. There was no cardiac catheterization done at that time and there is no other reports of cardiac catheterization. There is no defibrillator in place and patient did not have any further episodes as per the documentation. Management of rest of the medical conditions as per primary team and other consultants. Thank you for the consult and allowing me to participate in the care of the patient. Cardiology will continue to follow. Orestes Dudley M.D. Interventional Cardiology HPI Data of Consult Requesting Physician: Anselmo Dennis DO Admitting Provider: Anselmo Dennis DO Attending Provider: Anselmo Dennis DO Primary Care Provider: Lorraine Ventura MD Consult Narrative History of present illness: Zina is a 67 y/o female from residential with a past medical history of DM type II, HTN, ESRD on HD MWF, CAD, CHF, atrial fibrillation on Eliquis, left renal neoplasm s/p nephrectomy who comes for an evaluation of generalized weakness, fatigue that occured today during dialysis. She said she was getting dialysis and that her bloopd pressure started to drop but did not notice any chest palpitations or chest pain. She says that she sees a basic sciences dean in [place] but doesn't know who that basic sciences dean is. She also says that she takes medicines but she does not know what she takes and that they just hand them out to her at her residential. She also says that she has been in the residential for some time now. She denies any SOB as well. Dr. Doe is her hyperion developer and she gets hemodialysis MWF. No other complaints at this time. ED Course: She came to the ED with the vitals of temperature of 97.6, heart rate of 98, respiratory of 18, blood pressure 114/81, saturating 100% on 3 L nasal cannula. Labs were done and patient had a sodium of 132, potassium of 3.6, chloride of 92, bicarb 30, BUN/creatinine of 24.6 respectively, sugar of 199, white count of 5.2, hemoglobin 12.5, platelets of 152, troponin 0.12, BNP 1261. Chest x-ray showed mild heart failure, significant bibasilar pneumonia. She was given 40 Lasix, nitroglycerin patch, cefepime x 1, morphine 2, ASA 325. Medicine and cardiology were consulted and patient admitted for PMHx: As above Surgical history: Status post nephrectomy left side Medicines: Will await med rec as patient does not know what medicine she takes Allergies: Adhesive tape Family history: Patient denies any family medical history including heart attacks heart disease and open heart surgery Social history: Lives in [facility] nursing cc:: cc: Anselmo Dennis DO Review of Systems Review of Systems Narrative Review of Systems: Constitutional: +weakness, +fatigue No fever, chills, weight loss HEENT: No eye pain, vision loss, ear pain, hearing loss, dysphagia, Cardiovascular: No chest pain, palpitations, edema, pain with walking Respiratory: No cough, shortness of breath, wheezing GI: No NVD, abdominal pain, constipation, blood in stool, loss of appetite, heartburn Extremities: No presence of pitting edema MSK: No back pain, joint pain, joint swelling Neuro: No dizziness, numbness, weakness, headaches, seizures, tremors Psych: No anxiety, depression Exam Vital Signs Temp Pulse Resp BP Pulse Ox O2 Del Method O2 Flow Rate 96.2 F L 83 20 101/75 100 Nasal Cannula 2 07/20/24 16:44 07/20/24 17:45 07/20/24 16:44 07/20/24 17:45 07/20/24 16:44 07/20/24 11:31 07/20/24 16:44 Narrative Exam General: AAOx3, NAD, In dialysis chair when examined HEENT: Moist mucous membranes, conjunctiva clear, EOMI, PERRLA, Cardiovascular: S1, S2, radial pulses +2 bilat, RRR Pulmonary: Crackles heard diffusely GI: No tenderness to light or deep palpitation, no guarding, rigidity, rebound tenderness or distension Extremities: Pitting edema beyond +3 bilat Neuro: AAOx3, no focal motor or sensory deficits in the UE or LE bilat Psych: Cooperative Results Labs 07/20/24 11:54 07/20/24 11:54 Labs: Short CBC 07/20/24 Range/Units 11:54 WBC 5.2 (3.6-11.0) Thou/mm3 Hgb 12.5 (12.0-16.0) g/dL Hct 39.8 (36.0-46.0) % Plt Count 152 (140-440) Thou/mm3 BMP 07/20/24 11:54 Sodium 132 L Potassium 3.6 Chloride 92 L Carbon Dioxide 32.3 H BUN 28 H Creatinine 4.6 H* Glucose 199 H Calcium 9.6 Cardiac Enzymes 07/20/24 Range/Units 11:54 Troponin I 0.120 H* (0.0-0.045) ng/mL Liver Function 07/20/24 Range/Units 11:54 Total Bilirubin 0.4 (0.3-1.2) mg/dL AST 65 H (0-34) U/L ALT 44 (10-49) U/L Alkaline Phosphatase 201 H (46-116) U/L Albumin 4.0 (3.4-4.8) gm/dL Urine 07/20/24 Range/Units 14:15 Urine Color Yellow (Lt Yel-Yel) Urine Clarity Hazy (Clear/Hazy) Urine pH 7.0 (5.0-7.0) Ur Specific [place] 1.013 (1.001-1.035) Urine Protein 2+ A (Neg - Trace) Urine Glucose (UA) Negative (Negative) Quality Measures Quality Measures VTE prophylaxis Advance care planning discussed with:: patient Medications Home Medications and Allergies Home Medications ?Medication ?Instructions ?Recorded ?Confirmed ?Type insulin glargine 100 unit/mL (3 40 unit subcut QAM 02/28/19 05/25/23 History mL) subcutaneous pen (Basaglar KwikPen U-100 Insulin) blood sugar diagnostic (True 10/26/19 04/21/23 History Metrix Glucose Test Strip) pen needle, diabetic 29 gauge x 10/26/19 04/21/23 History 1/2 (BD Ultra-Fine Original Pen Needle) bisacodyl 10 mg rectal suppository 10 mg NM Q72H PRN Constipation 02/27/20 05/25/23 History (Dulcolax (bisacodyl)) magnesium hydroxide 400 mg/5 mL 30 ml PO Q72H PRN Constipation 02/27/20 05/25/23 History oral suspension (Milk of Magnesia) sodium phosphates 19 gram-7 118 ml NM Q72H PRN Constipation 02/27/20 05/25/23 History gram/118 mL enema (Fleet Enema) linagliptin 5 mg tablet (Tradjenta) 5 mg PO QDAY 04/21/20 05/25/23 History aspirin 81 mg tablet,delayed 81 mg PO QDAY 08/19/21 04/21/23 History release ferrous sulfate 325 mg (65 mg 325 mg PO TID 08/19/21 05/25/23 History iron) tablet (FeroSul) loratadine 10 mg tablet 10 mg PO QDAY 08/19/21 04/21/23 History magnesium oxide 400 mg PO TID 08/19/21 04/21/23 History melatonin 3 mg tablet 3 mg PO HS PRN Cough 08/19/21 05/25/23 History mirtazapine 15 mg tablet (Remeron) 7.5 mg PO HS 08/19/21 04/21/23 History acetaminophen 325 mg tablet 650 mg PO [id number] PRN Pain (Scale 04/21/22 05/25/23 History (Tylenol) Score 1-3) amino acids-protein hydrolysate 15 1 ea TIDWM 04/21/22 05/25/23 History gram-100 kcal/30 mL oral liquid pkt atorvastatin 40 mg tablet 40 mg PO HS 04/21/22 05/25/23 History sevelamer HCl 800 mg tablet 1,600 mg PO TIDWM 04/21/22 05/25/23 History diltiazem HCl 60 mg tablet 60 mg PO BID 05/25/23 05/25/23 History diphenhydramine HCl 25 mg tablet 25 mg PO Q8HR PRN Itching 05/25/23 05/25/23 History (Benadryl Allergy) docusate sodium 250 mg capsule 250 mg PO DAILY 05/25/23 05/25/23 History glucagon 1 mg solution for 1 mg subcut 05/25/23 History injection (Glucagon Emergency Kit) ondansetron HCl 4 mg tablet 4 mg PO Q6H PRN Nausea And Vomiting 05/25/23 05/25/23 History tramadol 50 mg tablet 50 mg PO Q6H PRN Pain (Scale Score 05/25/23 05/25/23 History 4-6) Allergies Allergy/AdvReac Type Severity Reaction Status Date / Time adhesive Allergy Mild Redness of Verified 07/20/24 12:00 Skin adhesive tape Allergy Mild Redness of Verified 07/20/24 12:00 Skin Visit Medications Apixaban (Apixaban 2.5 Mg Tablet) 5 mg PO BID KOTA Stop: 08/19/24 20:59 Aspirin (Aspirin Ec 81 Mg Tabec) 81 mg PO X1 ONE Stop: 07/21/24 09:01 Dextrose (Dextrose 50%-Water Inj 50 Ml Syringe) 25 ml IV Q15MIN PRN PRN Reason: BG 50-70 responsive npo pt Stop: 08/19/24 15:45 Dextrose (Dextrose 50%-Water Inj 50 Ml Syringe) 50 ml IV Q15MIN PRN PRN Reason: BG <50 OR BG <70 & pt unresponsive Stop: 08/19/24 15:45 Glucagon (Glucagon Inj 1 Mg Vial) 1 mg IM Q15MIN PRN PRN Reason: BG <70, and no IV access Guaifenesin/Dextromethorphan (Guaifenesin/Dm Tablet) 1 each PO Q4HR PRN PRN Reason: COUGH Stop: 08/19/24 16:07 Ceftriaxone Sodium/Dextrose (Rocephin/D5w 1gm Iv Premix) 50 mls @ 100 mls/hr IV QDAY KOTA Stop: 07/28/24 08:59 Azithromycin 500 mg/ Sodium (Chloride) 250 mls @ 250 mls/hr IV QDAY KOTA Stop: 07/28/24 08:59 Albumin Human (Albuminar-25 Ivpb) 25 gm in 100 mls @ 100 mls/min IV PRN PRN PRN Reason: DIALYSIS Last Admin: 07/20/24 17:20 Dose: 100 mls/min Insulin Glargine (Insulin Glargine (Lantus) 5 Unit/0.05 Ml (Per 5 Units)) 15 unit SC HS [facility] Stop: 08/19/24 20:59 Insulin Human Lispro (Insulin Lispro (Admelog) 1 Unit/0.01 Ml Unit) 0 unit SC ACHS [facility]; Protocol Stop: 08/19/24 16:59 Insulin Human Lispro (Insulin Lispro (Admelog) 1 Unit/0.01 Ml Unit) 5 unit SC ACHS [facility] Stop: 08/19/24 16:59 Ipratropium [place] (Ipratropium Rt 0.5 Mg/ 2.5 Ml Nebu) 0.5 mg INH Q6HRRT [facility] Stop: 08/19/24 18:59 Levalbuterol HCl (Levalbuterol Rt 0.63 Mg/3 Ml Nebu) 0.31 mg INH Q6HRRT [facility] Stop: 08/19/24 18:59 Levothyroxine Sodium (Levothyroxine Sodium 25 Mcg Tablet) 25 mcg PO ACBR [facility] Stop: 08/19/24 17:34 Metoprolol Tartrate (Metoprolol Tartrate 25 Mg Tablet) 25 mg PO BID [facility] Stop: 08/19/24 20:59 Polyethylene Glycol (Polyethylene Glycol 17 Gm Packet) 17 gm PO QDAY [facility] Stop: 08/19/24 15:44 Last Admin: 07/20/24 17:00 Dose: Not Given Sennosides (Senna Tablet) 1 tab PO QDAY PRN; Protocol PRN Reason: CONSTIPATION Stop: 08/19/24 15:40 Discontinued Medications Hydrocodone Bitart/Acetaminophen (Hydrocodone/Apap 5/325 Tablet) 1 tab PO X1 ONE Stop: 07/20/24 16:21 Last Admin: 07/20/24 16:23 Dose: 1 tab Aspirin (Aspirin 81 Mg Chew) 324 mg PO X1 ONE Stop: 07/20/24 13:28 Last Admin: 07/20/24 14:56 Dose: 324 mg Furosemide (Furosemide Inj 10 Mg/Ml 4ml Vial) 40 mg IVP X1 ONE Stop: 07/20/24 11:49 Last Admin: 07/20/24 12:13 Dose: 40 mg Azithromycin 500 mg/ Sodium (Chloride) 250 mls @ 250 mls/hr IV X1 ONE Stop: 07/20/24 14:31 Last Admin: 07/20/24 15:31 Dose: Not Given Ceftriaxone Sodium 1,000 mg/ (Sodium Chloride) 50 mls @ 100 mls/hr IV X1 ONE Stop: 07/20/24 14:01 Last Admin: 07/20/24 15:31 Dose: Not Given Cefepime HCl 2 gm/ Sodium (Chloride) 50 mls @ 100 mls/hr IV X1 ONE Stop: 07/20/24 14:15 Last Infusion: 07/20/24 16:25 Dose: Infused Vancomycin HCl 2,000 mg/ (Sodium Chloride) 500 mls @ 150 mls/hr IV X1 ONE Stop: 07/20/24 17:05 Metoprolol Tartrate (Metoprolol Tartrate Inj 1 Mg/Ml Amp 5 Ml) 5 mg IVP X1 ONE Stop: 07/20/24 15:54 Last Admin: 07/20/24 17:00 Dose: Not Given Metoprolol Tartrate (Metoprolol Tartrate Inj 1 Mg/Ml Amp 5 Ml) 2.5 mg IVP X1 ONE Stop: 07/20/24 16:13 Last Admin: 07/20/24 16:15 Dose: 2.5 mg Morphine Sulfate (Morphine Sulf Inj 10 Mg/Ml Vial) 2 mg IVP X1 ONE Stop: 07/20/24 12:19 Last Admin: 07/20/24 12:43 Dose: 2 mg Nitroglycerin (Nitroglycerin Oint 2% 1 Inch Packet) 1 inch TOP X1 ONE Stop: 07/20/24 12:19 Last Admin: 07/20/24 12:40 Dose: 1 inch Potassium Chloride (Potassium Chloride 10% 20 Meq/15 Ml Udc) 20 meq PO X1 ONE Stop: 07/20/24 16:04 Last Admin: 07/20/24 17:01 Dose: Not Given Sodium Chloride (Sodium Chloride Rt 10% 15 Ml Nebu) 5 ml INH X1 ONE Stop: 07/20/24 15:37 Assessment & Plan Plan Assessment Zina is a 67 y/o female from residential with a past medical history of DM type II, HTN, ESRD on HD MWF, CAD, CHF, atrial fibrillation on Eliquis, left renal neoplasm s/p nephrectomy who is admitted for Afib w/RVR. #A-fib with RVR #Hypotension On eliquis, Digoxin CHADVASC score: 5 points, 7.2% stroke risk per year HAS-BLED score: 4 points Patient was given metoprolol tartrate 2.5 mg IV and then 5 mg IV and then improved Plan: ?Metoprolol 50 XL, hold if blood pressure cannot hold ?Patient can be given digoxin 125 mcg if metoprolol is not given, digoxin should be given every other day ?Continue Eliquis 5 mg twice daily -Keep potassium and magnesium above 4 and 2 respectively #History of CAD #Elevated troponins, NSTEMI type II, resolved Troponins peaked, not checking anymore Plan: ? Continue with aspirin #History of type 2 diabetes #History of hypertension Plan: ? Follow-up A1c ? Resume home medicines when able #ESRD, on HD Tuesday #Lower extremity edema Likely related due to patient not getting enough dialysis Plan: ? Nephrology on consult, appreciate recs ? Continue with dialysis, will hold with diuresis for now #Hypothyroidism? TSH ~110, Free T4 0.46 No hx of hypothyroidism in the past Pt's BP could be low because of this as well Plan: ?Recheck TSH and T4 Patient seen and care discussed with my attending physician, Dr. Octavia Mcmahon, PGY-1
[2024-07-20 19:09] LABS: Troponin I 0.102 ng/mL (0.0-0.045)
[2024-07-20] MEDS: METOPROLOL SUCCINATE XL 25 MG TABCR 50 MG PO (20:26)
[2024-07-20] MEDS: Vancomycin Inj 2,000 MG in SODIUM CHLORIDE 0.9% 500 ML 500 ML 150 MG IV (20:26)
[2024-07-20] MEDS: APIXABAN 2.5 MG TABLET 5 MG PO (20:27)
[2024-07-20] MEDS: INSULIN GLARGINE (Lantus) 5 UNIT/0.05 ML (PER 5 UNITS) 15 UNIT SC (20:28)
[2024-07-20] MEDS: LEVOTHYROXINE SODIUM 25 MCG TABLET PO (20:37)
--- NOTE | 2024-07-20 22:38 | PC.NURSE ---
REPORT CALLED TO LUCAS CAMPOS. ALL QUESTIONS ASKED AND ANSWERED. PATIENT TRANSFERRED TO FLOOR WITH STAFF. NO DISTRESS NOTED. PATIENT REMAINS ON 2L 02.
[2024-07-21] VITALS (22 sets, daily range): BP systolic 89–120; BP diastolic 50–82; PULSE 64–106; RESP 16–26; TEMP 35.6–36.4; O2SAT 92–100; BMI 31.0; BMI 30.9
[2024-07-21] MEDS: traMADol HCL 50 MG TABLET PO ×3 (00:37→20:37)
[2024-07-21] MEDS: MELATONIN 3 MG TABLET PO ×2 (00:37→20:37)
[2024-07-21] MEDS: LEVALBUTEROL RT 0.63 MG/3 ML NEBU 0.31 MG INH ×2 (01:14→06:33)
[2024-07-21] MEDS: IPRATROPIUM RT 0.5 MG/ 2.5 ML NEBU INH ×4 (01:15→19:27)
[2024-07-21 01:55] LABS: Troponin I 0.082 ng/mL (0.0-0.045)
[2024-07-21] MEDS: LEVOTHYROXINE SODIUM 25 MCG TABLET PO (05:28)
[2024-07-21 06:36] LABS: Basophils # (Auto) 0.1 Thou/mm3 (0.0-0.2); Basophils % (Auto) 1 % (0-2.5); Eosinophils # (Auto) 0.1 Thou/mm3 (0.0-0.5); Eosinophils % (Auto) 2 % (0-10); Hematocrit 31.4 % (36.0-46.0); Immature Granulocytes % (Auto) 0 % (0-0); Immature Granulocytes Auto 0.02 Thou/mm3 (0.00-0.00); Lymphocytes # (Auto) 1.3 Thou/mm3 (1.0-4.8); Lymphocytes % (Auto) 22 % (10-50); Mean Corpuscular HGB Conc 31.8 g/dl (31.0-37.0); Mean Corpuscular Hemoglobin 31.7 pg (25.0-35.0); Mean Corpuscular Volume 100 fL (80-100); Monocytes # (Auto) 0.4 Thou/mm3 (0.0-0.8); Monocytes % (Auto) 6 % (0-12); Neutrophils # (Auto) 4.1 Thou/mm3 (1.8-7.7); Neutrophils % (Auto) 69 % (37-80); Nucleated Red Blood Cell % 0 /100 WBC (0); Platelet Count 141 Thou/mm3 (140-440); RDW Standard Deviation 58.1 fL (36.4-46.3); Red Blood Count 3.15 Miln/mm3 (4.00-5.20)
[2024-07-21 07:13] LABS: Glucose Estimated Average 128 mg/dL (80-131); Hemoglobin A1C 6.1 % Hgb (4.8-6.0)
[2024-07-21 07:26] LABS: Alanine Aminotransferase 40 U/L (10-49); Albumin, Serum 3.6 gm/dL (3.4-4.8); Albumin/Globulin Ratio 1.2 (1.2-2.2); Alkaline Phosphatase 153 U/L (46-116); Anion Gap 7 (7-16); Aspartate Amino Transferase 53 U/L (0-34); BUN/Creatinine Ratio 6 Ratio (12-20); Bilirubin,Total 0.3 mg/dL (0.3-1.2); Blood Urea Nitrogen 20 mg/dL (9-23); Calcium (Corrected) 9.3 mg/dL (8.5-10.1); Carbon Dioxide 27.8 mMol/L (20.0-31.0); Chloride 99 mMol/L (98-107); Cholesterol 69 mg/dL (132-200); Creatinine (Component) 3.6 mg/dL (0.6-1.3); Estimated Creatinine Clearance 18.3 mL/min (>60); Globulin 2.9 gm/dL (2.3-3.5); HDL Cholesterol 34 mg/dL (40-60); LDL Cholesterol,Calculated 24 mg/dL (0-130); Magnesium 2.1 mg/dL (1.6-2.6); Osmolality,Calculated 267 (275-295); Potassium 3.8 mMol/L (3.4-5.1); Sodium 134 mMol/L (136-145); Thyroid Stimulating Hormone 87.56 uIU/mL (0.55-4.78); Total Protein 6.5 gm/dL (5.7-8.2); Triglycerides 53 mg/dL (30-150); eGFR 13 See Note
[2024-07-21 07:33] LABS: Glucose 47 mg/dL (74-106); Troponin I 0.089 ng/mL (0.0-0.045)
[2024-07-21] MEDS: DEXTROSE 50%-WATER INJ 50 ML SYRINGE IV (07:46)
--- NOTE | 2024-07-21 08:03 | ESPR_ITS ---
Documentation for date of: 07/21/24 Subjective Subjective Interval history: Ms. Nguyễn is a 68-year-old who is well-known to me with a past medical history significant for hypertension, diabetes mellitus type 2 insulin- dependent, CAD, CHF HFpEF 60-65%, ESRD (MWF), Atrial Fibrillation on Eliquis and history of renal cell carcinoma s/p Left nephrectomy (2022) has been having significant fluid overload and sometimes receiving 4 times weekly dialysis presented to the emergency department with weakness, shortness of breath and high fevers. In the emergency department she was diagnosed with extensive bilateral pneumonia and also severe pulmonary vascular congestion. EKG showed A-fib with RVR. Labs showed WBC 5.2, hemoglobin 12.5, platelets 152. Sodium 132, potassium 3.6, BUN 28, creatinine 4.6, blood sugar 199, calcium 9.6, AST 65, ALT 44, alk phos 201, troponin 0.12, BNP 06/13/1959, albumin 4, TSH 118, Pro-[place] 0.43, urinalysis shows significant amount of blood and 1+ bacteria. Did level 0.4. Hepatitis STUART positive, hep C positive Admitted for pneumonia, acute chf exacerbation, and A-fib RVR, UTI Medication given in the emergency room Lasix 40 mg x 1, nitroglycerin, cefepime, morphine, aspirin 325. Nephrology consultation requested in view of need for dialysis. Patient currently on dialysis 07/21/2024 patient currently seen in telemetry. Still having significant shortness of breath and edema. Decided to proceed with short run of dialysis today. Labs and meds reviewed Review of Systems Review of Systems Narrative Review of Systems: CONSTITUTIONAL: Patient complains of fever and chills, weakness HEENT: Denies any visual disturbances or hearing problems. CARDIOVASCULAR: Patient denies any chest pain. c/o shortness of breath, swelling in the lower extremities. PULMONARY: Patient c/o shortness of breath, cough. GASTROINTESTINAL: Patient denies any abdominal pain, constipation, nausea, vomiting, diarrhea. GENITOURINARY: Patient denies any urinary symptoms of burning or frequency or hematuria, denies any form in the urine. SKIN: Denies any rash. MUSCULOSKELETAL: ++ Arthritis NEUROLOGICAL: Denies any neurological problems of strokes, seizures or confusion. Denies any memory problems. PSYCHIATRIC: Denies any depression or anxiety. LYMPHATICS : No lymphadenopathy Exam Vital Signs Temp Pulse Resp BP Pulse Ox O2 Del Method O2 Flow Rate 36.0 C 83 20 107/63 93 L Nasal Cannula 2 07/21/24 04:00 07/21/24 06:33 07/21/24 06:33 07/21/24 04:00 07/21/24 06:33 07/21/24 04:00 07/21/24 06:33 Narrative Exam GENERAL APPEARANCE: Patient currently seen in telemetry NECK: Neck supple, no JVD or bruit CARDIOVASCULAR: Heart regular, no murmurs LUNGS/CHEST: Bilateral crackles ABDOMEN: Soft, nontender, nondistended. No masses. Normal bowel sounds. EXTREMITIES: Significant edema in the legs SKIN: Skin exam normal without any rashes . +AVF MUSCULOSKELETAL: Musculoskeletal exam normal PSYCHIATRIC: Normal mood, affect LYMPHATICS: No lymphadenopathy noted NEUROLOGICAL : No neurological deficits Objective Labs 07/21/24 10:05 07/21/24 05:19 Labs: Laboratory Results - last 24 hr 07/20/24 07/20/24 07/20/24 11:54 14:15 18:05 WBC 5.2 RBC 4.01 Hgb 12.5 Hct 39.8 MCV 99 MCH 31.2 MCHC 31.4 RDW Std Deviation 58.5 H Plt Count 152 Neut % (Auto) 65 Lymph % (Auto) 27 [place] % (Auto) 5 Eos % (Auto) 2 Baso % (Auto) 1 Neut # (Auto) 3.4 Lymph # (Auto) 1.4 [place] # (Auto) 0.3 Eos # (Auto) 0.1 Baso # (Auto) 0.0 Immature Gran # (Auto) 0.02 H Absolute Nucleated RBC 0.00 Immature Gran % 0 Nucleated RBC % 0 D-Dimer 280 Sodium 132 L Potassium 3.6 Chloride 92 L Carbon Dioxide 32.3 H Anion Gap 8 BUN 28 H Creatinine 4.6 H* Estim Creat Clear Calc 14.6 L eGFR 10 L* BUN/Creatinine Ratio 6 L Glucose [address] Glu mg/dL Hemoglobin A1c Calculated Osmolality 276 Calcium 9.6 Corrected Calcium 9.6 Phosphorus 3.6 Magnesium 2.3 Total Bilirubin 0.4 AST 65 H ALT 44 Alkaline Phosphatase 201 H Troponin I 0.120 H* 0.102 H* B-Natriuretic Peptide 1261 H* Total Protein 7.9 Albumin 4.0 Globulin 3.9 H Albumin/Globulin Ratio 1.0 L Triglycerides Cholesterol LDL Cholesterol, Calc HDL Cholesterol Cholesterol/HDL Ratio Procalcitonin 0.43 TSH 118.25 H* Free T4 0.46 L Free T3 pg/dL 1.7 L Ur Collection Type Clean Catch Urine Color Yellow Urine Clarity Hazy Urine pH 7.0 Ur Specific [place] 1.013 Urine Protein 2+ A Urine Glucose (UA) Negative Urine Ketones Negative Urine Blood 3+ A Urine Nitrite Negative Urine Bilirubin Negative Urine Urobilinogen (Auto) Negative Ur Leukocyte Esterase Positive Urine RBC 183 H Urine WBC 583 H Ur Squamous Epith Cells 0 Urine Bacteria 1+ A Ur Culture Indicated? Yes Digoxin 0.4 L Hepatitis A IgM Ab Reactive A Hep Bs Antigen Non Reactive Hep B Core IgM Ab Non Reactive Hepatitis C Antibody Reactive A HIV 1&2 Antibody Rapid Non-Reactive 07/21/24 07/21/24 00:32 05:19 WBC 6.0 RBC 3.15 L Hgb 10.0 L D Hct 31.4 L MCV 100 MCH 31.7 MCHC 31.8 RDW Std Deviation 58.1 H Plt Count 141 Neut % (Auto) 69 Lymph % (Auto) 22 [place] % (Auto) 6 Eos % (Auto) 2 Baso % (Auto) 1 Neut # (Auto) 4.1 Lymph # (Auto) 1.3 [place] # (Auto) 0.4 Eos # (Auto) 0.1 Baso # (Auto) 0.1 Immature Gran # (Auto) 0.02 H Absolute Nucleated RBC 0.00 Immature Gran % 0 Nucleated RBC % 0 D-Dimer Sodium 134 L Potassium 3.8 Chloride 99 Carbon Dioxide 27.8 Anion Gap 7 BUN 20 Creatinine 3.6 H D Estim Creat Clear Calc 18.3 L eGFR 13 L* BUN/Creatinine Ratio 6 L Glucose 47 L* D Estimated Ave Glu mg/dL 128 Hemoglobin A1c 6.1 H Calculated Osmolality 267 L Calcium 9.0 Corrected Calcium 9.3 Phosphorus 3.0 Magnesium 2.1 Total Bilirubin 0.3 AST 53 H ALT 40 Alkaline Phosphatase 153 H D Troponin I 0.082 H* 0.089 H* B-Natriuretic Peptide Total Protein 6.5 Albumin 3.6 Globulin 2.9 Albumin/Globulin Ratio 1.2 Triglycerides 53 Cholesterol 69 L LDL Cholesterol, Calc 24 HDL Cholesterol 34 L Cholesterol/HDL Ratio 2.0 L Procalcitonin TSH 87.56 H* D Free T4 Free T3 pg/dL Ur Collection Type Urine Color Urine Clarity Urine pH Ur Specific [place] Urine Protein Urine Glucose (UA) Urine Ketones Urine Blood Urine Nitrite Urine Bilirubin Urine Urobilinogen (Auto) Ur Leukocyte Esterase Urine RBC Urine WBC Ur Squamous Epith Cells Urine Bacteria Ur Culture Indicated? Digoxin Hepatitis A IgM Ab Hep Bs Antigen Hep B Core IgM Ab Hepatitis C Antibody HIV 1&2 Antibody Rapid Assessment & Plan Additional Assessment & Plan Additional Plan: 67 y/o female patient with significant medical history for ESRD on HD (MWF), DM2, HTN, CAD, Afib on Eliquis, CHF and left renal neoplasm s/p nephrectomy (on 05/14/23) BIBA to ED for shortness of breath, fever . nephrology was consulted due to patient's ESRD. #ESRD on hemodialysis # Left Nephrectomy- Renal neoplasm Patient scheduled for dialysis today Hemodialysis for 2 hours, sequential ultrafiltration 2-3 L, Epogen 6000, no heparin ordered. Plan of care discussed with the dialysis nurse. Please see dialysis flowsheet for further details. -Follow up CBC and CMP # Pneumonia, UTI-on antibiotics # Hypothyroidism --add levothyroxine #DM -Accu-Cheks, sliding scale, diabetic diet #Afib-patient used to be on Eliquis #CAD// CHF--cardiology was consulted Thank you Gary for allowing me to participate in the care of Ms. Izaguirre
[2024-07-21] MEDS: AZITHROMYCIN 250 MG TABLET 500 MG PO (08:49)
[2024-07-21] MEDS: APIXABAN 2.5 MG TABLET 5 MG PO ×2 (08:49→20:37)
[2024-07-21] MEDS: cefTRIAXone/D5w 1gm IV premix 50 ML IV (08:50)
[2024-07-21] MEDS: ASPIRIN EC 81 MG TABEC PO (09:00)
[2024-07-21 10:33] LABS: Hematocrit 35.5 % (36.0-46.0); Hemoglobin 11.1 g/dL (12.0-16.0)
--- NOTE | 2024-07-21 11:13 | ESPR_ITS ---
Documentation for date of: 07/21/24 Subjective Subjective Interval history: Patient is a 68-year-old female with a past medical history of hypertension, diabetes mellitus type 2 insulin-dependent, CAD, CHF HFpEF 60-65%, ESRD (MWF), Atrial Fibrillation on Eliquis and history of renal cell carcinoma s/p Left nephrectomy (2022) who was admitted for pneumonia, acute chf exacerbation and a fib w/ rvr. No overnight events reported for patient. Critical lab value of fasting glucose 42. Hypoglycemic protocal initiated. Patient deneid headaches or dizziness. Denied chest pain. Pedro stated she was feeling tired. Pedro ate about 60% of her breakfast this morning. Pedro is scheduled for dialysis today w/ Dr. Ventura. Repeat hgb and hct for significant drop this morning. Continue Metoprolol 50 HS. Continue to hold Amio and digoxin given elevated TSH. Patient does NOT use oxygen at home. Exam Vital Signs Temp Pulse Resp BP Pulse Ox O2 Del Method O2 Flow Rate 97.1 F 100 16 104/67 97 Nasal Cannula 3 07/21/24 08:00 07/21/24 08:00 07/21/24 08:00 07/21/24 08:00 07/21/24 08:00 07/21/24 08:00 07/21/24 08:00 Narrative Exam General Appearance: Alert & Oriented X3, well-nourished female who is lying in bed in mild discomfort, unable to recline back in bed. HEENT: Skull symmetrical and atraumatic. Conjunctivae pale pink and moist. Pupils equal, round, reactive to light and accommodation (PERRL). External ear without lesion or discharge. Straight, nares patient, mucosa pink, no discharge. Cardio: Normal Rate and Rhythm with S1 and S2 heart sounds (previously in afib). No murmurs or extra heart sounds auscultated. No bruits on carotid auscultation. Peripheral edema, +3-worse on right lower extremity. No JVD noted. Lungs: Symmetric with good expansion. Chest and back non-tender. Breath sounds vesicular without crackles, wheezing or rhonchi Abdomen: Non-tender, Non-distended, Normal Reactive Bowel Sounds, no suprapubic tenderness with palpation Neuro: Alert, cooperative, oriented to person, place, and time. Speech clear. CN grossly intact. Upper motor strength 5/5 and Lower motor strength 5/5. Sensation intact. Objective Labs 07/21/24 10:05 07/21/24 05:19 Labs: Laboratory Results - last 24 hr 07/20/24 07/20/24 07/20/24 11:54 14:15 18:05 WBC 5.2 RBC 4.01 Hgb 12.5 Hct 39.8 MCV 99 MCH 31.2 MCHC 31.4 RDW Std Deviation 58.5 H Plt Count 152 Neut % (Auto) 65 Lymph % (Auto) 27 [place] % (Auto) 5 Eos % (Auto) 2 Baso % (Auto) 1 Neut # (Auto) 3.4 Lymph # (Auto) 1.4 [place] # (Auto) 0.3 Eos # (Auto) 0.1 Baso # (Auto) 0.0 Immature Gran # (Auto) 0.02 H Absolute Nucleated RBC 0.00 Immature Gran % 0 Nucleated RBC % 0 D-Dimer 280 Sodium 132 L Potassium 3.6 Chloride 92 L Carbon Dioxide 32.3 H Anion Gap 8 BUN 28 H Creatinine 4.6 H* Estim Creat Clear Calc 14.6 L eGFR 10 L* BUN/Creatinine Ratio 6 L Glucose [address] Glu mg/dL Hemoglobin A1c Calculated Osmolality 276 Calcium 9.6 Corrected Calcium 9.6 Phosphorus 3.6 Magnesium 2.3 Total Bilirubin 0.4 AST 65 H ALT 44 Alkaline Phosphatase 201 H Troponin I 0.120 H* 0.102 H* B-Natriuretic Peptide 1261 H* Total Protein 7.9 Albumin 4.0 Globulin 3.9 H Albumin/Globulin Ratio 1.0 L Triglycerides Cholesterol LDL Cholesterol, Calc HDL Cholesterol Cholesterol/HDL Ratio Procalcitonin 0.43 TSH 118.25 H* Free T4 0.46 L Free T3 pg/dL 1.7 L Ur Collection Type Clean Catch Urine Color Yellow Urine Clarity Hazy Urine pH 7.0 Ur Specific [place] 1.013 Urine Protein 2+ A Urine Glucose (UA) Negative Urine Ketones Negative Urine Blood 3+ A Urine Nitrite Negative Urine Bilirubin Negative Urine Urobilinogen (Auto) Negative Ur Leukocyte Esterase Positive Urine RBC 183 H Urine WBC 583 H Ur Squamous Epith Cells 0 Urine Bacteria 1+ A Ur Culture Indicated? Yes Digoxin 0.4 L Hepatitis A IgM Ab Reactive A Hep Bs Antigen Non Reactive Hep B Core IgM Ab Non Reactive Hepatitis C Antibody Reactive A HIV 1&2 Antibody Rapid Non-Reactive 07/21/24 07/21/24 07/21/24 00:32 05:19 10:05 WBC 6.0 RBC 3.15 L Hgb 10.0 L D 11.1 L Hct 31.4 L 35.5 L MCV 100 MCH 31.7 MCHC 31.8 RDW Std Deviation 58.1 H Plt Count 141 Neut % (Auto) 69 Lymph % (Auto) 22 [place] % (Auto) 6 Eos % (Auto) 2 Baso % (Auto) 1 Neut # (Auto) 4.1 Lymph # (Auto) 1.3 [place] # (Auto) 0.4 Eos # (Auto) 0.1 Baso # (Auto) 0.1 Immature Gran # (Auto) 0.02 H Absolute Nucleated RBC 0.00 Immature Gran % 0 Nucleated RBC % 0 D-Dimer Sodium 134 L Potassium 3.8 Chloride 99 Carbon Dioxide 27.8 Anion Gap 7 BUN 20 Creatinine 3.6 H D Estim Creat Clear Calc 18.3 L eGFR 13 L* BUN/Creatinine Ratio 6 L Glucose 47 L* D Estimated Ave Glu mg/dL 128 Hemoglobin A1c 6.1 H Calculated Osmolality 267 L Calcium 9.0 Corrected Calcium 9.3 Phosphorus 3.0 Magnesium 2.1 Total Bilirubin 0.3 AST 53 H ALT 40 Alkaline Phosphatase 153 H D Troponin I 0.082 H* 0.089 H* B-Natriuretic Peptide Total Protein 6.5 Albumin 3.6 Globulin 2.9 Albumin/Globulin Ratio 1.2 Triglycerides 53 Cholesterol 69 L LDL Cholesterol, Calc 24 HDL Cholesterol 34 L Cholesterol/HDL Ratio 2.0 L Procalcitonin TSH 87.56 H* D Free T4 Free T3 pg/dL Ur Collection Type Urine Color Urine Clarity Urine pH Ur Specific [place] Urine Protein Urine Glucose (UA) Urine Ketones Urine Blood Urine Nitrite Urine Bilirubin Urine Urobilinogen (Auto) Ur Leukocyte Esterase Urine RBC Urine WBC Ur Squamous Epith Cells Urine Bacteria Ur Culture Indicated? Digoxin Hepatitis A IgM Ab Hep Bs Antigen Hep B Core IgM Ab Hepatitis C Antibody HIV 1&2 Antibody Rapid Quality Measures Quality Measures VTE prophylaxis Advance care planning discussed with:: patient Assessment & Plan Assessment Current Active Medications: Generic Name Dose Route Start Last Admin Trade Name Freq PRN Reason Stop Dose Admin Apixaban 5 mg 07/20/24 21:00 07/21/24 08:49 Apixaban 2.5 Mg Tablet PO 08/19/24 20:59 5 mg BID KOTA Administration Aspirin 81 mg 07/22/24 09:00 Aspirin Ec 81 Mg Tabec PO 08/21/24 08:59 QDAY KOTA Azithromycin 500 mg 07/21/24 09:00 07/21/24 08:49 Azithromycin 250 Mg Tablet PO 07/28/24 08:59 500 mg QDAY KOTA Administration Dextrose 25 ml 07/20/24 15:46 Dextrose 50%-Water Inj 50 Ml Syringe IV 08/19/24 15:45 Q15MIN PRN BG 50-70 responsive npo pt Dextrose 50 ml 07/20/24 15:46 07/21/24 07:46 Dextrose 50%-Water Inj 50 Ml Syringe IV 08/19/24 15:45 50 ml Q15MIN PRN Administration BG <50 OR BG <70 & pt unresponsive Glucagon 1 mg 07/20/24 15:46 Glucagon Inj 1 Mg Vial IM Q15MIN PRN BG <70, and no IV access Guaifenesin/Dextromethorphan 1 each 07/20/24 16:08 Guaifenesin/Dm Tablet PO 08/19/24 16:07 Q4HR PRN COUGH Ceftriaxone Sodium/Dextrose 50 mls @ 100 mls/hr 07/21/24 09:00 07/21/24 08:50 Rocephin/D5w 1gm Iv Premix IV 07/28/24 08:59 100 mls/hr QDAY KOTA Administration Albumin Human 25 gm in 100 mls @ 100 mls/min 07/20/24 17:18 07/20/24 21:02 Albuminar-25 Ivpb IV Infused PRN PRN Infusion DIALYSIS Insulin Glargine 15 unit 07/20/24 21:00 07/20/24 20:28 Insulin Glargine (Lantus) 5 Unit/0.05 Ml (Per 5 Units) SC 08/19/24 20:59 15 unit HS KOTA Administration Insulin Human Lispro 0 unit 07/20/24 17:00 07/21/24 08:08 Insulin Lispro (Admelog) 1 Unit/0.01 Ml Unit SC 08/19/24 16:59 Not Given ACHS [facility] Protocol Insulin Human Lispro 5 unit 07/20/24 17:00 07/21/24 08:09 Insulin Lispro (Admelog) 1 Unit/0.01 Ml Unit SC 08/19/24 16:59 Not Given ACHS KOTA Ipratropium [place] 0.5 mg 07/20/24 19:00 07/21/24 06:32 Ipratropium Rt 0.5 Mg/ 2.5 Ml Nebu INH 08/19/24 18:59 0.5 mg Q6HRRT KOTA Administration Levalbuterol HCl 0.63 mg 07/21/24 10:00 07/21/24 10:45 Levalbuterol Rt 0.63 Mg/3 Ml Nebu INH 08/20/24 09:59 Not Given Q6HRRT KOTA Levothyroxine Sodium 25 mcg 07/20/24 17:35 07/21/24 05:28 Levothyroxine Sodium 25 Mcg Tablet PO 08/19/24 17:34 25 mcg ACBR KOTA Administration Melatonin 3 mg 07/21/24 00:29 07/21/24 00:37 Melatonin 3 Mg Tablet PO 08/20/24 20:59 3 mg HS PRN Administration SLEEPLESSNESS Metoprolol Succinate 50 mg 07/20/24 21:00 07/20/24 20:26 Metoprolol Succinate Xl 25 Mg Tabcr PO 08/19/24 20:59 50 mg HS KOTA Administration Polyethylene Glycol 17 gm 07/20/24 15:45 07/21/24 08:57 Polyethylene Glycol 17 Gm Packet PO 08/19/24 15:44 Not Given QDAY [place] Sennosides 1 tab 07/20/24 15:41 Senna Tablet PO 08/19/24 15:40 QDAY PRN CONSTIPATION Protocol Tramadol HCl 50 mg 07/21/24 00:26 07/21/24 00:37 Tramadol Hcl 50 Mg Tablet PO 07/26/24 00:25 50 mg Q6H PRN Administration Pain (Scale Score 4-6) Plan Patient is a 68-year-old female with a past medical history of hypertension, diabetes mellitus type 2 insulin-dependent, CAD, CHF HFpEF 60-65%, ESRD (MWF), Atrial Fibrillation on Eliquis and history of renal cell carcinoma s/p Left nephrectomy (2022) who was admitted on who was admitted for acute chf exacerbation, pneumonia, and Atrial Fibrilation w/ RVR. #Pneumonia #Community-acquired Patient presented with increased cough for the past 3 weeks that has been productive. Likely send secondary to viral superimposed bacteria given bilateral component. Likely gram-positive cocci suggest strep pneumoniae. Cocci less likely. PE cannot be ruled out as wells criteria 6 points (16% of PE in the ED). Venous U/S of Lower extremity Negative. CO less likely given no st elevation on EKG but troponins are slighlty elevated at 0.12. Following. No chest pain. COVID flu negative. 07/21/2024 Gram Stain: Epithelial Cells, WBC 1. no organisms seen. Sputum Culture Pending. Plan Ceftriaxone 1 g and azithromycin 500 daily (07/20/2024) Sputum culture Chest physio Cough syrup MRSA screen CBC CMP #Atrial Fibrillation #Atrial fibrillation with RVR, resolved. Patient has a past medical history of atrial fibrillation. Home medication of amiodarone 400 twice daily and digoxin 125 mcg daily. Currently holding amiodarone twice daily given elevated TSH as it can cause hyper or hypothyroidism. Pending digoxin levels. Pending final recommendations from cardiology. Second EKG ordered, to confirm A-fib with RVR. RVR likely triggered by pneumonia, CHF exacerbation and lack of dialysis completion. Plan Hold Amiodarone 400 BID Hold Digoxin, pending levels Continue Metoprolol Succinate 50 mg HS If metoprolol fails, consider starting Digoxin 0.125 mg then continue every other day Contact Dr. Leonard on Tuesday if patient is still here Cardiology Consulted, Dr. Ring, appreciate recommendations. #Acute CHF exacerbation #HFpEF 60 to 65% #Acute Hypoxic Respirtory Failure. #Elevated troponins Has a past medical history of CHF. No Lasix noted for patient. Preserved ejection fraction of 55 to 60% on 03/18/2023. Pulmonary pressure noted 31 mmHg. Pending new echo. Lasix 40 mg x 1 IV push given. Patient patient scheduled for dialysis today, reevaluate tomorrow's fluid status. Patient still produces some urine. Positive Orthopnea. Positive Paroxsymal Orthopnea. Requires several pillows to sleep. Wheelchair bound. Lower Pedal edema noted. Lower extremeity wound noted. BNP 1261. Prominent vascular congestion. NYHA Class: IV Plan: -Metoprolol Succinate 50 HS -Lasix 40 X 1, re-evaluate after dialysis in AM -K>4 and Mg >2, caution-patient is dialysis. Monitor closely. -Fluid Restriction and Sodium Restriction 2 g per day -work toward GDMT -SpO <90%, support PRN -Daily Weights, Strict Ins and Outs, Fluid Striction (1800 ml), Sodium Restriction 2 grams per day -wound care -Cardiology Consult, appreciate recommendations. Hypothyroidism Patient presented with a TSH level of 118.25 and a T4 of 0.46 and 1.7 T3. Levothyroxine started 25 mcg p.o. before meals. Medication induced versus euthyroidism versus myxedema coma (less likely). Second TSH 87.56 on 07/21/2024. Plan Levothyroxine 25 mcg p.o. before meals #ESRD (Tuesday Patient has a past medical history of dialysis likely secondary to nephrectomy from renal cell carcinoma (2022). Patient did not complete dialysis today. Inpatient dialysis on 07/20/2024, Dr. Ventura consulted. 07/20/2024-Net removal 2 UF. 07/21/2024-Planned Dialysis Plan -Scheduled in patient dialysis 07/21/2024 (second session). Renally dose medication Avoid nephrotoxins Phosphorus improved Follow-up with phosphate consider restarting the Sevelamer, based on nephrology recommendations Consult Nephrology, Appreciate Recommendations, Dr. Ventura #Diabetes mellitus type 2 insulin-dependent #Hypoglycemic episode, resolved. Past medical history of diabetes mellitus with Lantus 40 units daily. Previous A1c on 04/07/2023 showed 5%. Glucose on admission 199. Patient experienced a hypoglycemic episode this morning despite having home Lantus reduced by 50% on admission. Stopped Lantus. Stopped scheduled Lispro. Keep sliding scale on. Average glucose 128 and A1c 6.1 Plan Sliding scale ACHS Bedside sugar checks Q6hrs Diet carbohydrate consistent low #Urinary tract infection, complicated Patient presented with a positive UA showing positive esterase, positive WBCs and +1 bacteria. Past medical history of UTIs. Dysuria positive. Negative for suprapubic tenderness. Plan -Pending urine cultures -Dual coverage from ceftriaxone 1 g daily-07/20/2024 #Hyperlipidemia #CAD Home medication atorvastatin. Currently holding Lipid Cholesterol 69 L, LDL 24, HDL 34; unable to calculate ASCVD given low cholesterol Plan Follow AST's ALT's Consider restarting Atorvastatin on discharge. #Hypertension Home medication of metoprolol tartrate 25 mg BID as home medication Plan -Metoprolol Tartrate 25 mg BID D/C -Metoprolol Succinate 50 mg PO HS-->BP & CHF GDMT Health Maintenance: Disp: Pt is currently admitted to floors for further management of pneumonia and Afib w/ rvr , awaiting second round of dialysis. FEN: carb consistent low, fluid restricted 1500, and 2 gram sodium DVT: on subQ heparin Code: Full code - The patient's plan was discussed with attending Dr. Jeannie Lugo MD PGY1 Internal Medicine Attending Provider Attestation/Addendum I have discussed and was present for the essential components of the history, physical examination, diagnosis, and treatment plan with the resident. I agree with the patient's care as documented by the resident and amended herein by me. Gary Dennis DO. Although this document has been carefully reviewed, there may still be some phonetic and other typographical errors. These errors are purely grammatical due to imperfections in the software program and should not be construed in any way to compromise the substance of the patient's medical care during this visit.
[2024-07-21] MEDS: BENZONATATE 100 MG CAPSULE PO ×2 (11:49→20:37)
[2024-07-21 12:48] LABS: Troponin I 0.073 ng/mL (0.0-0.045)
--- NOTE | 2024-07-21 12:52 | ESPR_ITS ---
<Statement entered by Orestes Dudley MD - 07/22/24 05:10> I have personally seen and examined the patient separately on the above date of service and discussed the plan of care with the resident. I reviewed the resident Dr. Steiner consultation progress note and agree with the resident findings and plan in the note above and have also edited the documentation to reflect my findings and plan. A 67-year-old female with a past medical history of cardiac arrest status post VT or VF in October 2019 [unclear etiology-questionable digoxin toxicity, paroxysmal atrial fibrillation, questionable CAD and documented in the chart but no cath, history of systolic heart failure in 2019 with an EF of 40%, essential hypertension, diabetes mellitus, end-stage renal disease on hemodialysis, status post left nephrectomy for left renal mass, obesity, chronic anemia in the setting of CKD who has been resident of the care home for the past 5 years was sent in for further evaluation of generalized during a dialysis session. As per the patient she has been extremely weak and has been experiencing fatigue for the last few days. Blood pressure was low slightly during the dialysis and patient was sent to the hospital for further evaluation. Patient denies any Chest pain or chest pressure or palpitations during my examination. Denied any kind of fever or chills but does endorse shortness of breath and does have significant leg swelling on exam. Denied any cough or sputum production. Patient does follow-up with international accounting manager in [place] but have not been clear. Other part of the history includes patient did have episode of wide-complex tachycardia or VT/VF cardiac arrest in 2019 at which time she was intubated and seen by cardiology at that point of time but no clear etiology has been mentioned in the chart. Patient possibly had digoxin toxicity and was given Digibind and during that admission patient was discharged home. Since then patient apparently and has been living in the care home as a possible anoxic brain damage. Patient does have a history of permanent atrial fibrillation versus chronic persistent atrial fibrillation has been on amiodarone as well as digoxin for years patient does have a significant family history of open heart surgery and heart disease. Resident of [facility] and denies any kind of alcohol drugs or smoking. Initial set of vitals in the emergency department showed temperature 97.6 afebrile, heart rate of 90/min, respiratory rate improved with a blood pressure of 114/81 mmHg and saturation of 100% on 3 L nasal cannula. Patient has significant leg swelling on exam and appeared to have almost anasarca. Patient was alert and responsive. Labs showed WBC of 4.2, hemoglobin 12.5, platelets of 152 BUN of 28 creatinine of 4.6, sodium of 132, potassium of 3.6, UA negative, initial troponin was 0.12 which is similar to before LFTs showed mildly elevated AST at 65 and alk phos of 201, albumin of 2.0. UA was negative. Chest x-ray with mild vascular congestion but no evidence of pneumonia. EKG in the emergency department showed atrial fibrillation with RVR with a rate of 103 bpm, low voltage limb leads and Q waves in the anteroseptal leads from V1-V4 unchanged from before. Patient had significantly elevated TSH at holiday weekend and free T4 was also low at 0.4. Plan: 1. Atrial fibrillation with RVR 2. Mild elevated troponins-mostly NSTEMI type II 3. Severe hypothyroidism-possibly secondary to long-term amiodarone use Patient presented with fatigue as well as generalized weakness and low during dialysis session and here patient EKG did show some atrial fibrillation with RVR but the heart rate was around 110-120s with RVR at 90 bpm with Q waves in the anteroseptal leads from V1 to unchanged from before and low voltage in the limb leads but no other acute ST-T changes. Patient has been diagnosed of atrial fibrillation for at least 5 to 6 years ago and has been on amiodarone as well as digoxin to the point of time. Given the elevated LFTs stop the amiodarone and repeat the TSH for now and continue to workup for hyperthyroidism which could explain her symptoms. Chads Vascor is high and recommended anticoagulation with heparin drip if any procedures planned otherwise can be transitioned to Eliquis 2.5 mg twice daily. Metoprolol is a 50 mg once daily for rate control. Check digoxin level and continue at home dose if level normal. Stop amiodarone completely for given the elevated TSH and can continue digoxin based on the levels. Elevated troponins at 0.12?patient did have similar troponin elevation during her previous admissions even in 2022. Mostly NSTEMI type II in the setting of demand ischemia. Recommend to continue aspirin high intensity statin as well as beta-patti blood pressure is permissible. HbA1c was 6.14 TSH elevated at 118 on admission and repeat is 86. Primary team did start the patient on levothyroxine. . Lipid profile showed HDL 34 LDL of 24 and total cholesterol 69. 4. History of systolic congestive heart failure-EF was around 40% in 2020. Echo was repeated showed Dilated LV. Mild Moderate systolic dsyfunction. Mild global hypokiensis. Cannot determine diastolic function due to AFib. Estimated EF 35-40% Normal RV size and function. Estimated RVSP 62mmHg. Atleast moderate PAH. Mild LA dilatation. Mild AV sclerosis without stenosis. Severe posterior MAC arnel moderate anterior MAC. Mild MV stenosis with MG 5mmHg. Moderate MR. Moderate TR, Mild PI. Pleural effusion present. Trace or trivial pericardial effuison Patient is significant leg edema and has at least 3+ leg edema bilaterally. Patient is a dialysis patient and further fluid management as per nephrology. Strict input output, daily weights and 2 g sodium diet. 5. History of cardiac arrest: Unclear etiology for the cardiac arrest s/p resuscitation in 2019. There was questionable VT or VF but no rhythm strip seen from 2019. There was a question of digoxin toxicity. There was no cardiac catheterization done at that time and there is no other reports of cardiac catheterization. There is no defibrillator in place and patient did not have any further episodes as per the documentation. Management of rest of the medical conditions as per primary team and other consultants. Thank you for the consult and allowing me to participate in the care of the patient. Cardiology will continue to follow. Orestes Dudley M.D. Interventional Cardiology Documentation for date of: 07/21/24 Subjective Subjective Interval history: Pt examined at bedside. Telemetry reviewed, pt appears to still be in fi and rate in 90s-100s, rate controlled. Pt examined at bedside today and is complaining of a cough and is requesting cough medicine but does not want Robitussin. Says that she has noticed swelling in her legs. Does not know if she has had thyroid problems in the past. Says she has been on Amio for about 5 years now. Does not know what medicine she take at the care home. Sees Dr. Leonard in [place] as her international accounting manager. No other complaints this time Exam Vital Signs Temp Pulse Resp BP Pulse Ox O2 Del Method O2 Flow Rate 97.1 F 100 16 104/67 97 Nasal Cannula 3 07/21/24 08:00 07/21/24 08:00 07/21/24 08:00 07/21/24 08:00 07/21/24 08:00 07/21/24 08:00 07/21/24 08:00 Narrative Exam General: AAOx3, NAD, Lying in bed when examined, pleasant obese woman HEENT: Moist mucous membranes, conjunctiva clear, EOMI, PERRLA, poor dentition (wears dentures?) Cardiovascular: S1, S2, radial pulses +2 bilat, RRR Pulmonary: Crackles heard diffusely in lung anderson bilat GI: No tenderness to light or deep palpitation, no guarding, rigidity, rebound tenderness or distension Extremities: Pitting edema beyond +3 bilat Neuro: AAOx3, no focal motor or sensory deficits in the UE or LE bilat Psych: Cooperative Objective Labs 07/21/24 10:05 07/21/24 05:19 Labs: Laboratory Results - last 24 hr 07/20/24 07/20/24 07/20/24 11:54 14:15 18:05 WBC RBC Hgb Hct MCV MCH MCHC RDW Std Deviation Plt Count Neut % (Auto) Lymph % (Auto) [place] % (Auto) Eos % (Auto) Baso % (Auto) Neut # (Auto) Lymph # (Auto) [place] # (Auto) Eos # (Auto) Baso # (Auto) Immature Gran # (Auto) Absolute Nucleated RBC Immature Gran % Nucleated RBC % D-Dimer 280 Sodium Potassium Chloride Carbon Dioxide Anion Gap BUN Creatinine Estim Creat Clear Calc eGFR BUN/Creatinine Ratio Glucose Estimated Ave Glu mg/dL Hemoglobin A1c Calculated Osmolality Calcium Corrected Calcium Phosphorus 3.6 Magnesium 2.3 Total Bilirubin AST ALT Alkaline Phosphatase Troponin I 0.120 H* 0.102 H* Total Protein Albumin Globulin Albumin/Globulin Ratio Triglycerides Cholesterol LDL Cholesterol, Calc HDL Cholesterol Cholesterol/HDL Ratio Procalcitonin 0.43 TSH 118.25 H* Free T4 0.46 L Free T3 pg/dL 1.7 L Ur Collection Type Clean Catch Urine Color Yellow Urine Clarity Hazy Urine pH 7.0 Ur Specific [place] 1.013 Urine Protein 2+ A Urine Glucose (UA) Negative Urine Ketones Negative Urine Blood 3+ A Urine Nitrite Negative Urine Bilirubin Negative Urine Urobilinogen (Auto) Negative Ur Leukocyte Esterase Positive Urine RBC 183 H Urine WBC 583 H Ur Squamous Epith Cells 0 Urine Bacteria 1+ A Ur Culture Indicated? Yes Digoxin 0.4 L Hepatitis A IgM Ab Reactive A Hep Bs Antigen Non Reactive Hep B Core IgM Ab Non Reactive Hepatitis C Antibody Reactive A HIV 1&2 Antibody Rapid Non-Reactive 07/21/24 07/21/24 07/21/24 00:32 05:19 10:05 WBC 6.0 RBC 3.15 L Hgb 10.0 L D 11.1 L Hct 31.4 L 35.5 L MCV 100 MCH 31.7 MCHC 31.8 RDW Std Deviation 58.1 H Plt Count 141 Neut % (Auto) 69 Lymph % (Auto) 22 [place] % (Auto) 6 Eos % (Auto) 2 Baso % (Auto) 1 Neut # (Auto) 4.1 Lymph # (Auto) 1.3 [place] # (Auto) 0.4 Eos # (Auto) 0.1 Baso # (Auto) 0.1 Immature Gran # (Auto) 0.02 H Absolute Nucleated RBC 0.00 Immature Gran % 0 Nucleated RBC % 0 D-Dimer Sodium 134 L Potassium 3.8 Chloride 99 Carbon Dioxide 27.8 Anion Gap 7 BUN 20 Creatinine 3.6 H D Estim Creat Clear Calc 18.3 L eGFR 13 L* BUN/Creatinine Ratio 6 L Glucose 47 L* D Estimated Ave Glu mg/dL 128 Hemoglobin A1c 6.1 H Calculated Osmolality 267 L Calcium 9.0 Corrected Calcium 9.3 Phosphorus 3.0 Magnesium 2.1 Total Bilirubin 0.3 AST 53 H ALT 40 Alkaline Phosphatase 153 H D Troponin I 0.082 H* 0.089 H* Total Protein 6.5 Albumin 3.6 Globulin 2.9 Albumin/Globulin Ratio 1.2 Triglycerides 53 Cholesterol 69 L LDL Cholesterol, Calc 24 HDL Cholesterol 34 L Cholesterol/HDL Ratio 2.0 L Procalcitonin TSH 87.56 H* D Free T4 Free T3 pg/dL Ur Collection Type Urine Color Urine Clarity Urine pH Ur Specific [place] Urine Protein Urine Glucose (UA) Urine Ketones Urine Blood Urine Nitrite Urine Bilirubin Urine Urobilinogen (Auto) Ur Leukocyte Esterase Urine RBC Urine WBC Ur Squamous Epith Cells Urine Bacteria Ur Culture Indicated? Digoxin Hepatitis A IgM Ab Hep Bs Antigen Hep B Core IgM Ab Hepatitis C Antibody HIV 1&2 Antibody Rapid 07/21/24 12:00 WBC RBC Hgb Hct MCV MCH MCHC RDW Std Deviation Plt Count Neut % (Auto) Lymph % (Auto) [place] % (Auto) Eos % (Auto) Baso % (Auto) Neut # (Auto) Lymph # (Auto) [place] # (Auto) Eos # (Auto) Baso # (Auto) Immature Gran # (Auto) Absolute Nucleated RBC Immature Gran % Nucleated RBC % D-Dimer Sodium Potassium Chloride Carbon Dioxide Anion Gap BUN Creatinine Estim Creat Clear Calc eGFR BUN/Creatinine Ratio Glucose Estimated Ave Glu mg/dL Hemoglobin A1c Calculated Osmolality Calcium Corrected Calcium Phosphorus Magnesium Total Bilirubin AST ALT Alkaline Phosphatase Troponin I 0.073 H* Total Protein Albumin Globulin Albumin/Globulin Ratio Triglycerides Cholesterol LDL Cholesterol, Calc HDL Cholesterol Cholesterol/HDL Ratio Procalcitonin TSH Free T4 Free T3 pg/dL Ur Collection Type Urine Color Urine Clarity Urine pH Ur Specific [place] Urine Protein Urine Glucose (UA) Urine Ketones Urine Blood Urine Nitrite Urine Bilirubin Urine Urobilinogen (Auto) Ur Leukocyte Esterase Urine RBC Urine WBC Ur Squamous Epith Cells Urine Bacteria Ur Culture Indicated? Digoxin Hepatitis A IgM Ab Hep Bs Antigen Hep B Core IgM Ab Hepatitis C Antibody HIV 1&2 Antibody Rapid Quality Measures Quality Measures VTE prophylaxis Advance care planning discussed with:: patient Assessment & Plan Assessment Current Active Medications: Generic Name Dose Route Start Last Admin Trade Name Freq PRN Reason Stop Dose Admin Apixaban 5 mg 07/20/24 21:00 07/21/24 08:49 Apixaban 2.5 Mg Tablet PO 08/19/24 20:59 5 mg BID KOTA Administration Aspirin 81 mg 07/22/24 09:00 Aspirin Ec 81 Mg Tabec PO 08/21/24 08:59 QDAY KOTA Azithromycin 500 mg 07/21/24 09:00 07/21/24 08:49 Azithromycin 250 Mg Tablet PO 07/28/24 08:59 500 mg QDAY KOTA Administration Benzonatate 100 mg 07/21/24 11:42 07/21/24 11:49 Benzonatate 100 Mg Capsule PO 08/20/24 11:41 100 mg Q8HR PRN Administration COUGH Protocol Dextrose 25 ml 07/20/24 15:46 Dextrose 50%-Water Inj 50 Ml Syringe IV 08/19/24 15:45 Q15MIN PRN BG 50-70 responsive npo pt Dextrose 50 ml 07/20/24 15:46 07/21/24 07:46 Dextrose 50%-Water Inj 50 Ml Syringe IV 08/19/24 15:45 50 ml Q15MIN PRN Administration BG <50 OR BG <70 & pt unresponsive Glucagon 1 mg 07/20/24 15:46 Glucagon Inj 1 Mg Vial IM Q15MIN PRN BG <70, and no IV access Guaifenesin/Dextromethorphan 1 each 07/20/24 16:08 Guaifenesin/Dm Tablet PO 08/19/24 16:07 Q4HR PRN COUGH Protocol Ceftriaxone Sodium/Dextrose 50 mls @ 100 mls/hr 07/21/24 09:00 07/21/24 08:50 Rocephin/D5w 1gm Iv Premix IV 07/28/24 08:59 100 mls/hr QDAY KOTA Administration Albumin Human 25 gm in 100 mls @ 100 mls/min 07/20/24 17:18 07/20/24 21:02 Albuminar-25 Ivpb IV Infused PRN PRN Infusion DIALYSIS Insulin Human Lispro 0 unit 07/20/24 17:00 07/21/24 11:46 Insulin Lispro (Admelog) 1 Unit/0.01 Ml Unit SC 08/19/24 16:59 Not Given ACHS KOTA Protocol Insulin Human Lispro 5 unit 07/20/24 17:00 07/21/24 08:09 Insulin Lispro (Admelog) 1 Unit/0.01 Ml Unit SC 08/19/24 16:59 Not Given ACHS KOTA Ipratropium [place] 0.5 mg 07/20/24 19:00 07/21/24 06:32 Ipratropium Rt 0.5 Mg/ 2.5 Ml Nebu INH 08/19/24 18:59 0.5 mg Q6HRRT KOTA Administration Levalbuterol HCl 0.63 mg 07/21/24 10:00 07/21/24 10:45 Levalbuterol Rt 0.63 Mg/3 Ml Nebu INH 08/20/24 09:59 Not Given Q6HRRT KOTA Levothyroxine Sodium 25 mcg 07/20/24 17:35 07/21/24 05:28 Levothyroxine Sodium 25 Mcg Tablet PO 08/19/24 17:34 25 mcg ACBR KOTA Administration Melatonin 3 mg 07/21/24 00:29 07/21/24 00:37 Melatonin 3 Mg Tablet PO 08/20/24 20:59 3 mg HS PRN Administration SLEEPLESSNESS Metoprolol Succinate 50 mg 07/20/24 21:00 07/20/24 20:26 Metoprolol Succinate Xl 25 Mg Tabcr PO 08/19/24 20:59 50 mg HS KOTA Administration Polyethylene Glycol 17 gm 07/20/24 15:45 07/21/24 08:57 Polyethylene Glycol 17 Gm Packet PO 08/19/24 15:44 Not Given QDAY KOTA Sennosides 1 tab 07/20/24 15:41 Senna Tablet PO 08/19/24 15:40 QDAY PRN CONSTIPATION Protocol Tramadol HCl 50 mg 07/21/24 00:26 07/21/24 00:37 Tramadol Hcl 50 Mg Tablet PO 07/26/24 00:25 50 mg Q6H PRN Administration Pain (Scale Score 4-6) Plan Assessment Zina is a 67 y/o female from care home with a past medical history of DM type II, HTN, ESRD on HD MWF, CAD, CHF, atrial fibrillation on Eliquis, left renal neoplasm s/p nephrectomy who is admitted for Afib w/RVR. #A-fib with RVR #Hypotension CHADVASC score: 5 points, 7.2% stroke risk per year HAS-BLED score: 4 points Pt is rate controlled at this time and on Eliquis, rate 90s-100s still in afib Concern for thyroid issues due to digoxin and amio nursing home use, will continue with beta patti and titrate doses as needed Plan: ?Continue Metoprolol 50 XL, hold if blood pressure cannot hold ?Continue Eliquis 5 mg twice daily ?Keep potassium and magnesium above 4 and 2 respectively #History of CAD #Elevated troponins, NSTEMI type II, resolved Troponins peaked, not checking anymore Plan: ? Continue with aspirin #History of type 2 diabetes #History of hypertension Plan: ? Follow-up A1c ? Resume home medicines when able #ESRD, on HD Tuesday #hx of L nephroectomy #Lower extremity edema Likely related due to patient not getting enough dialysis Dr. Fields sees pt, says she goes for diaylsis 4x a week Will plan for dialysis tomorrow morning Plan: ? 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 Will not resume these medicines Plan: ?Continue with Levo 25 mcg Patient seen and care discussed with my attending physician, Dr. Octavia Mcmahon, PGY-1
[2024-07-21] MEDS: LEVALBUTEROL RT 0.63 MG/3 ML NEBU INH ×2 (13:41→19:27)
--- NOTE | 2024-07-21 14:15 | PC.NURSE ---
BP LOW PT REMAINS ASYMPTOMATIC, WILL ADMIN PRN ALBUMIN PER MD ORDER AND CONT. TO MONITOR
[2024-07-21] MEDS: ALBUMIN HUMAN 25% IVPB 25 GM/100 ML BTL IV (14:16)
--- NOTE | 2024-07-21 14:21 | PC.NURSE ---
bp low UF goal lowered to 1.5L as tolerated, will cont. to monitor
--- NOTE | 2024-07-21 15:01 | PC.NURSE ---
bp cont. to trend down, UF goal lowered to 1.2L as tolerated will cont. to monitor
[2024-07-21 15:06] LABS: Cocci Serology, IgM Negative (Negative)
--- NOTE | 2024-07-21 15:32 | PC.NURSE ---
pt tolerating tx well, UF goal increased to 1.4L as tolerayed will cont. to monitor
[2024-07-21] MEDS: INSULIN LISPRO (AdmeLOG) 1 UNIT/0.01 ML UNIT SC (20:34)
[2024-07-22] VITALS (9 sets, daily range): BP systolic 104–130; BP diastolic 58–89; PULSE 75–107; RESP 17–27; TEMP 35.9–36.2; O2SAT 95–100; BMI 30.9
[2024-07-22] MEDS: LEVALBUTEROL RT 0.63 MG/3 ML NEBU INH ×2 (00:40→06:07)
[2024-07-22] MEDS: IPRATROPIUM RT 0.5 MG/ 2.5 ML NEBU INH ×2 (00:40→06:07)
[2024-07-22] MEDS: BENZONATATE 100 MG CAPSULE PO ×2 (05:51→20:43)
[2024-07-22] MEDS: LEVOTHYROXINE SODIUM 25 MCG TABLET 50 MCG PO (05:51)
[2024-07-22] MEDS: traMADol HCL 50 MG TABLET PO ×2 (05:52→20:43)
[2024-07-22 06:10] LABS: Basophils % (Auto) 1 % (0-2.5); Eosinophils # (Auto) 0.1 Thou/mm3 (0.0-0.5); Eosinophils % (Auto) 2 % (0-10); Hematocrit 30.4 % (36.0-46.0); Hemoglobin 9.8 g/dL (12.0-16.0); Immature Granulocytes % (Auto) 0 % (0-0); Immature Granulocytes Auto 0.02 Thou/mm3 (0.00-0.00); Lymphocytes # (Auto) 1.4 Thou/mm3 (1.0-4.8); Lymphocytes % (Auto) 28 % (10-50); Mean Corpuscular HGB Conc 32.2 g/dl (31.0-37.0); Mean Corpuscular Hemoglobin 31.7 pg (25.0-35.0); Mean Corpuscular Volume 98 fL (80-100); Monocytes # (Auto) 0.3 Thou/mm3 (0.0-0.8); Monocytes % (Auto) 6 % (0-12); Neutrophils # (Auto) 3.3 Thou/mm3 (1.8-7.7); Neutrophils % (Auto) 64 % (37-80); Nucleated Red Blood Cell % 0 /100 WBC (0); Platelet Count 131 Thou/mm3 (140-440); Red Blood Count 3.09 Miln/mm3 (4.00-5.20); White Blood Count 5.1 Thou/mm3 (3.6-11.0)
[2024-07-22 06:36] LABS: Alanine Aminotransferase 45 U/L (10-49); Albumin, Serum 3.7 gm/dL (3.4-4.8); Albumin/Globulin Ratio 1.4 (1.2-2.2); Alkaline Phosphatase 161 U/L (46-116); Anion Gap 10 (7-16); Aspartate Amino Transferase 47 U/L (0-34); BUN/Creatinine Ratio 6 Ratio (12-20); Bilirubin,Total 0.3 mg/dL (0.3-1.2); Blood Urea Nitrogen 28 mg/dL (9-23); Calcium 8.8 mg/dL (8.3-10.6); Carbon Dioxide 26.9 mMol/L (20.0-31.0); Chloride 97 mMol/L (98-107); Creatinine (Component) 4.7 mg/dL (0.6-1.3); Globulin 2.7 gm/dL (2.3-3.5); Glucose 141 mg/dL (74-106); Magnesium 2.2 mg/dL (1.6-2.6); Osmolality,Calculated 275 (275-295); Phosphorous 4.3 mg/dL (2.4-5.1); Potassium 4.1 mMol/L (3.4-5.1); Sodium 134 mMol/L (136-145); Total Protein 6.4 gm/dL (5.7-8.2); eGFR 10 See Note
[2024-07-22] MEDS: APIXABAN 2.5 MG TABLET PO ×2 (09:09→20:43)
[2024-07-22] MEDS: AZITHROMYCIN 250 MG TABLET 500 MG PO (09:10)
[2024-07-22] MEDS: cefTRIAXone/D5w 1gm IV premix 50 ML IV (09:10)
[2024-07-22] MEDS: ASPIRIN EC 81 MG TABEC PO (09:10)
[2024-07-22] MEDS: INSULIN LISPRO (AdmeLOG) 1 UNIT/0.01 ML UNIT SC (11:53)
--- NOTE | 2024-07-22 12:04 | PD.NEPHPROG ---
Documentation for date of: 07/22/24 Subjective Subjective Interval history: Ms. Nguyễn is a 68-year-old who is well-known to me with a past medical history significant for hypertension, diabetes mellitus type 2 insulin-dependent, CAD, CHF HFpEF 60-65%, ESRD (MWF), Atrial Fibrillation on Eliquis and history of renal cell carcinoma s/p Left nephrectomy (2022) has been having significant fluid overload and sometimes receiving 4 times weekly dialysis presented to the emergency department with weakness, shortness of breath and high fevers. In the emergency department she was diagnosed with extensive bilateral pneumonia and also severe pulmonary vascular congestion. EKG showed A-fib with RVR. Labs showed WBC 5.2, hemoglobin 12.5, platelets 152. Sodium 132, potassium 3.6, BUN 28, creatinine 4.6, blood sugar 199, calcium 9.6, AST 65, ALT 44, alk phos 201, troponin 0.12, BNP 06/13/1959, albumin 4, TSH 118, Pro-Devon 0.43, urinalysis shows significant amount of blood and 1+ bacteria. Did level 0.4. Hepatitis STUART positive, hep C positive Admitted for pneumonia, acute chf exacerbation, and A-fib RVR, UTI Medication given in the emergency room Lasix 40 mg x 1, nitroglycerin, cefepime, morphine, aspirin 325. Nephrology consultation requested in view of need for dialysis. Patient currently on dialysis 07/22/2024 patient currently seen in telemetry. Still having significant shortness of breath and edema. Patient had a short run of dialysis yesterday. Next dialysis scheduled for tomorrow. Continue with antibiotics. Admitted with pneumonia/CHF exacerbation. Labs and meds reviewed Review of Systems Review of Systems Narrative Review of Systems: CONSTITUTIONAL: Patient complains of fever and chills, weakness HEENT: Denies any visual disturbances or hearing problems. CARDIOVASCULAR: Patient denies any chest pain. c/o shortness of breath, swelling in the lower extremities. PULMONARY: Patient c/o shortness of breath, cough. GASTROINTESTINAL: Patient denies any abdominal pain, constipation, nausea, vomiting, diarrhea. GENITOURINARY: Patient denies any urinary symptoms of burning or frequency or hematuria, denies any form in the urine. SKIN: Denies any rash. MUSCULOSKELETAL: ++ Arthritis NEUROLOGICAL: Denies any neurological problems of strokes, seizures or confusion. Denies any memory problems. PSYCHIATRIC: Denies any depression or anxiety. LYMPHATICS : No lymphadenopathy Exam Vital Signs Temp Pulse Resp BP Pulse Ox O2 Del Method O2 Flow Rate 35.9 C L 77 21 H 104/77 95 Nasal Cannula 3 07/22/24 16:00 07/22/24 16:00 07/22/24 16:00 07/22/24 16:00 07/22/24 16:00 07/22/24 16:00 07/22/24 16:00 Narrative Exam GENERAL APPEARANCE: Patient currently seen in telemetry NECK: Neck supple, no JVD or bruit CARDIOVASCULAR: Heart regular, no murmurs LUNGS/CHEST: Bilateral crackles ABDOMEN: Soft, nontender, nondistended. No masses. Normal bowel sounds. EXTREMITIES: Significant edema in the legs SKIN: Skin exam normal without any rashes . +AVF MUSCULOSKELETAL: Musculoskeletal exam normal PSYCHIATRIC: Normal mood, affect LYMPHATICS: No lymphadenopathy noted NEUROLOGICAL : No neurological deficits Objective Labs 07/22/24 05:10 07/22/24 05:10 Labs: Laboratory Results - last 24 hr 07/22/24 05:10 WBC 5.1 RBC 3.09 L Hgb 9.8 L Hct 30.4 L MCV 98 MCH 31.7 MCHC 32.2 RDW Std Deviation 57.0 H Plt Count 131 L Neut % (Auto) 64 Lymph % (Auto) 28 [place] % (Auto) 6 Eos % (Auto) 2 Baso % (Auto) 1 Neut # (Auto) 3.3 Lymph # (Auto) 1.4 [place] # (Auto) 0.3 Eos # (Auto) 0.1 Baso # (Auto) 0.0 Immature Gran # (Auto) 0.02 H Absolute Nucleated RBC 0.00 Immature Gran % 0 Nucleated RBC % 0 Sodium 134 L Potassium 4.1 Chloride 97 L Carbon Dioxide 26.9 Anion Gap 10 BUN 28 H Creatinine 4.7 H* D Estim Creat Clear Calc 14.0 L eGFR 10 L* BUN/Creatinine Ratio 6 L Glucose 141 H D Calculated Osmolality 275 Calcium 8.8 Corrected Calcium 9.0 Phosphorus 4.3 Magnesium 2.2 Total Bilirubin 0.3 AST 47 H ALT 45 Alkaline Phosphatase 161 H Total Protein 6.4 Albumin 3.7 Globulin 2.7 Albumin/Globulin Ratio 1.4 Assessment & Plan Additional Assessment & Plan Additional Plan: 67 y/o female patient with significant medical history for ESRD on HD (MWF), DM2, HTN, CAD, Afib on Eliquis, CHF and left renal neoplasm s/p nephrectomy (on 05/14/23) BIBA to ED for shortness of breath, fever . nephrology was consulted due to patient's ESRD. #ESRD on hemodialysis # Left Nephrectomy- Renal neoplasm Patient scheduled for dialysis am -Follow up CBC and CMP # Pneumonia, UTI-on antibiotics # Hypothyroidism --add levothyroxine #DM -Accu-Cheks, sliding scale, diabetic diet #Afib-patient used to be on Eliquis #CAD// CHF--cardiology was consulted Thank you Gary for allowing me to participate in the care of Ms. Izaguirre
--- NOTE | 2024-07-22 12:36 | ESPR_ITS ---
Documentation for date of: 07/22/24 Subjective Subjective Interval history: 07/22/2024: Patient examined at bedside today. Overnight events for patient on telemetry includes patient being still in A-fib however rate controlled in the 90s. She says she is doing well, is not experiencing chest pain or shortness of breath. She says she is hanging in there, has not noticed a big difference in her swelling of her legs. Says that she is going to get dialysis tomorrow. Patient will not continue amnio due to thyroid issues . Hold off on digoxin for now. If the patient goes into A-fib with RVR and blood pressure is low then we can start digoxin at 125 mcg every other day and monitor the levels in 7 days to adjust digoxin dosage. Patient potassium level should be carefully monitored for any hypokalemia and hyperkalemia as it can cause dig toxicity which patient did have previously as per the chart review and hence recommend to hold digoxin for now as rate is controlled. Previous chart records show that patient had a cardiac arrest in 2019 either due to V-fib or V. tach but there was not information in regards to the EKG. Dr. Ellis was consulted but not much information could be extrapolated from the notes. Will continue to treat patient with metoprolol 50 XL as she is rate controlled, and symptoms go low with her blood pressure during dialysis in which she can get midodrine if this is a concern. Patient is currently being treated for ESBL E. coli as well on Rocephin and azithromycin. Echo shows dilated left ventricle with mild global hypokinesis and moderate systolic dysfunction 35 to 40% for EF. She also has right ventricle systolic pressure of 62 and severe MAC, pleural effusion present in trace pericardial effusion. Levothyroxine increased to 50 mcg Exam Vital Signs Temp Pulse Resp BP Pulse Ox O2 Del Method O2 Flow Rate 96.6 F L 93 17 109/61 98 Nasal Cannula 1 07/22/24 08:00 07/22/24 08:00 07/22/24 08:00 07/22/24 08:00 07/22/24 08:00 07/21/24 16:00 07/22/24 06:08 Narrative Exam General: AAOx3, NAD, Lying in bed when examined, pleasant obese woman HEENT: Moist mucous membranes, conjunctiva clear, EOMI, PERRLA, poor dentition (does not wear dentures) Cardiovascular: S1, S2, radial pulses +2 bilat, RRR Pulmonary: Crackles heard diffusely in lung anderson bilat but improved from yesterday GI: No tenderness to light or deep palpitation, no guarding, rigidity, rebound tenderness or distension Extremities: Pitting edema beyond +3 bilat Neuro: AAOx3, no focal motor or sensory deficits in the UE or LE bilat Psych: Cooperative Objective Labs 07/22/24 05:10 07/22/24 05:10 Labs: Laboratory Results - last 24 hr 07/20/24 07/21/24 07/22/24 15:48 12:00 05:10 WBC 5.1 RBC 3.09 L Hgb 9.8 L Hct 30.4 L MCV 98 MCH 31.7 MCHC 32.2 RDW Std Deviation 57.0 H Plt Count 131 L Neut % (Auto) 64 Lymph % (Auto) 28 [place] % (Auto) 6 Eos % (Auto) 2 Baso % (Auto) 1 Neut # (Auto) 3.3 Lymph # (Auto) 1.4 [place] # (Auto) 0.3 Eos # (Auto) 0.1 Baso # (Auto) 0.0 Immature Gran # (Auto) 0.02 H Absolute Nucleated RBC 0.00 Immature Gran % 0 Nucleated RBC % 0 Sodium 134 L Potassium 4.1 Chloride 97 L Carbon Dioxide 26.9 Anion Gap 10 BUN 28 H Creatinine 4.7 H* D Estim Creat Clear Calc 14.0 L eGFR 10 L* BUN/Creatinine Ratio 6 L Glucose 141 H D Calculated Osmolality 275 Calcium 8.8 Corrected Calcium 9.0 Phosphorus 4.3 Magnesium 2.2 Total Bilirubin 0.3 AST 47 H ALT 45 Alkaline Phosphatase 161 H Troponin I 0.073 H* Total Protein 6.4 Albumin 3.7 Globulin 2.7 Albumin/Globulin Ratio 1.4 Coccidioides IgM Ab Negative Quality Measures Quality Measures VTE prophylaxis Advance care planning discussed with:: patient Assessment & Plan Assessment Current Active Medications: Generic Name Dose Route Start Last Admin Trade Name Freq PRN Reason Stop Dose Admin Apixaban 2.5 mg 07/22/24 09:00 07/22/24 09:09 Apixaban 2.5 Mg Tablet PO 08/21/24 08:59 2.5 mg BID KOTA Administration Aspirin 81 mg 07/22/24 09:00 07/22/24 09:10 Aspirin Ec 81 Mg Tabec PO 08/21/24 08:59 81 mg QDAY KOTA Administration Azithromycin 500 mg 07/21/24 09:00 07/22/24 09:10 Azithromycin 250 Mg Tablet PO 07/28/24 08:59 500 mg QDAY KOTA Administration Benzonatate 100 mg 07/21/24 11:42 07/22/24 05:51 Benzonatate 100 Mg Capsule PO 08/20/24 11:41 100 mg Q8HR PRN Administration COUGH Protocol Dextrose 25 ml 07/20/24 15:46 Dextrose 50%-Water Inj 50 Ml Syringe IV 08/19/24 15:45 Q15MIN PRN BG 50-70 responsive npo pt Dextrose 50 ml 07/20/24 15:46 07/21/24 07:46 Dextrose 50%-Water Inj 50 Ml Syringe IV 08/19/24 15:45 50 ml Q15MIN PRN Administration BG <50 OR BG <70 & pt unresponsive Glucagon 1 mg 07/20/24 15:46 Glucagon Inj 1 Mg Vial IM Q15MIN PRN BG <70, and no IV access Guaifenesin/Dextromethorphan 1 each 07/20/24 16:08 Guaifenesin/Dm Tablet PO 08/19/24 16:07 Q4HR PRN COUGH Protocol Ceftriaxone Sodium/Dextrose 50 mls @ 100 mls/hr 07/21/24 09:00 07/22/24 09:10 Rocephin/D5w 1gm Iv Premix IV 07/28/24 08:59 100 mls/hr QDAY KOTA Administration Albumin Human 25 gm in 100 mls @ 100 mls/min 07/20/24 17:18 07/21/24 14:16 Albuminar-25 Ivpb IV 100 mls/min PRN PRN Administration DIALYSIS Insulin Human Lispro 0 unit 07/20/24 17:00 07/22/24 11:53 Insulin Lispro (Admelog) 1 Unit/0.01 Ml Unit SC 08/19/24 16:59 3 unit ACHS KOTA Administration Protocol Insulin Human Lispro 5 unit 07/20/24 17:00 07/21/24 08:09 Insulin Lispro (Admelog) 1 Unit/0.01 Ml Unit SC 08/19/24 16:59 Not Given ACHS KOTA Ipratropium [place] 0.5 mg 07/20/24 19:00 07/22/24 06:07 Ipratropium Rt 0.5 Mg/ 2.5 Ml Nebu INH 08/19/24 18:59 0.5 mg Q6HRRT KOTA Administration Levalbuterol HCl 0.63 mg 07/21/24 10:00 07/22/24 06:07 Levalbuterol Rt 0.63 Mg/3 Ml Nebu INH 08/20/24 09:59 0.63 mg Q6HRRT KOTA Administration Levothyroxine Sodium 50 mcg 07/22/24 06:00 07/22/24 05:51 Levothyroxine Sodium 25 Mcg Tablet PO 08/21/24 05:59 50 mcg ACBR KOTA Administration Melatonin 3 mg 07/21/24 00:29 07/21/24 20:37 Melatonin 3 Mg Tablet PO 08/20/24 20:59 3 mg HS PRN Administration SLEEPLESSNESS Metoprolol Succinate 50 mg 07/20/24 21:00 07/21/24 20:37 Metoprolol Succinate Xl 25 Mg Tabcr PO 08/19/24 20:59 Not Given HS KOTA Polyethylene Glycol 17 gm 07/20/24 15:45 07/22/24 09:38 Polyethylene Glycol 17 Gm Packet PO 08/19/24 15:44 Not Given QDAY KOTA Sennosides 1 tab 07/20/24 15:41 Senna Tablet PO 08/19/24 15:40 QDAY PRN CONSTIPATION Protocol Tramadol HCl 50 mg 07/21/24 00:26 07/22/24 05:52 Tramadol Hcl 50 Mg Tablet PO 07/26/24 00:25 50 mg Q6H PRN Administration Pain (Scale Score 4-6) Plan Assessment Zina is a 67 y/o [place] with a past medical history of DM type II, HTN, ESRD on HD MWF, CAD, CHF, atrial fibrillation on Eliquis, left renal neoplasm s/p nephrectomy who is admitted for Afib w/RVR. #A-fib with RVR #History of cardiac arrest #Hypotension CHADVASC score: 5 points, 7.2% stroke risk per year HAS-BLED score: 4 points Pt is rate controlled at this time and on Eliquis, rate 90s-100s still in afib Concern for thyroid issues due to amio jail use, will continue with beta patti and titrate doses as needed Patient can be given midodrine 2.5 to 5 mg 15 to 30 minutes prior dialysis sessions if she goes hypotensive Patient had previous cardiac arrest in 2019 upon chart records, however not much information to be extrapolated from chart review Plan: ?Continue Metoprolol 50 XL, hold if blood pressure is permissible -Hold off on digoxin for now. If the patient goes into A-fib with RVR and blood pressure is low then we can start digoxin at 125 mcg every other day and monitor the levels in 7 days to adjust digoxin dosage. Patient potassium level should be carefully monitored for any hypokalemia and hyperkalemia as it can cause dig toxicity which patient did have previously as per the chart review and hence recommend to hold digoxin for now as rate is controlled. ?Continue Eliquis 5 mg twice daily ?Keep potassium and magnesium above 4 and 2 respectively #History of CAD #History of chronic HFrEF with systolic dysfunction and dilated left ventricle and wall motion abnormalities #Trace pericardial effusion #Elevated troponins, NSTEMI type II, resolved Echo shows dilated left ventricle with mild global hypokinesis and moderate systolic dysfunction 35 to 40% for EF. She also has right ventricle systolic pressure of 62 and severe MAC, pleural effusion present in trace pericardial effusion. Plan: ?Continue with aspirin ?Continue with GDMT therapy as able, on metoprolol 50 XL at this point #History of type 2 diabetes #History of hypertension A1c 6.1 Plan: ? Resume home medicines when able #ESRD, on HD Tuesday #hx of L nephroectomy #Lower extremity edema Likely related due to patient not getting enough dialysis Dr. Fields sees pt, says she goes for diaylsis 4x a week Will plan for dialysis tomorrow, BUN/creatinine 28 and 4.7 respectively today Plan: ? 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 Octavia Mcmahon, PGY-1 Attending Provider Attestation/Addendum I reviewed the resident Dr. Steiner consultation progress note and agree with the resident findings and plan in the note above and have also edited the documentation to reflect my findings and plan. Orestes Dudley M.D. Interventional Cardiology
--- NOTE | 2024-07-22 14:24 | ESPR_ITS ---
Documentation for date of: 07/22/24 Subjective Subjective Interval history: No overnight events. Patient seen and examined at bedside, mildly distressed. Complains of persistent cough, leg pain and swelling. Denies fevers, chills, shortness of breath. Endorses recent onset of burning during urination. Meropenem initiated for ESBL. Plan for dialysis as per patient's usual schedule. Exam Vital Signs Temp Pulse Resp BP Pulse Ox O2 Del Method O2 Flow Rate 96.7 F L 104 H 18 130/89 H 99 Nasal Cannula 1 07/22/24 12:00 07/22/24 12:07/22/24 12:07/22/24 12:07/22/24 12:07/22/24 12:07/22/24 06:08 Narrative Exam General Appearance: Alert & Oriented X3, well-nourished female who is lying in bed in mild discomfort, unable to recline back in bed. HEENT: Skull symmetrical and atraumatic. Conjunctivae pale pink and moist. Pupils equal, round, reactive to light and accommodation (PERRL). External ear without lesion or discharge. Straight, nares patient, mucosa pink, no discharge. Cardio: Normal Rate and Rhythm with S1 and S2 heart sounds (previously in afib). No murmurs or extra heart sounds auscultated. No bruits on carotid auscultation. Peripheral edema, +3. No JVD noted. Lungs: Symmetric with good expansion. Chest and back non-tender. Breath sounds vesicular without crackles, wheezing or rhonchi Abdomen: Non-tender, Non-distended, Normal Reactive Bowel Sounds, no suprapubic tenderness with palpation Neuro: Alert, cooperative, oriented to person, place, and time. Speech clear. CN grossly intact. Upper motor strength 5/5 and Lower motor strength 5/5. Sensation intact. Objective Labs 07/22/24 05:10 07/22/24 05:10 Labs: Laboratory Results - last 24 hr 07/20/24 07/22/24 15:48 05:10 WBC 5.1 RBC 3.09 L Hgb 9.8 L Hct 30.4 L MCV 98 MCH 31.7 MCHC 32.2 RDW Std Deviation 57.0 H Plt Count 131 L Neut % (Auto) 64 Lymph % (Auto) 28 [place] % (Auto) 6 Eos % (Auto) 2 Baso % (Auto) 1 Neut # (Auto) 3.3 Lymph # (Auto) 1.4 [place] # (Auto) 0.3 Eos # (Auto) 0.1 Baso # (Auto) 0.0 Immature Gran # (Auto) 0.02 H Absolute Nucleated RBC 0.00 Immature Gran % 0 Nucleated RBC % 0 Sodium 134 L Potassium 4.1 Chloride 97 L Carbon Dioxide 26.9 Anion Gap 10 BUN 28 H Creatinine 4.7 H* D Estim Creat Clear Calc 14.0 L eGFR 10 L* BUN/Creatinine Ratio 6 L Glucose 141 H D Calculated Osmolality 275 Calcium 8.8 Corrected Calcium 9.0 Phosphorus 4.3 Magnesium 2.2 Total Bilirubin 0.3 AST 47 H ALT 45 Alkaline Phosphatase 161 H Total Protein 6.4 Albumin 3.7 Globulin 2.7 Albumin/Globulin Ratio 1.4 Coccidioides IgM Ab Negative Quality Measures Quality Measures VTE prophylaxis Advance care planning discussed with:: patient Assessment & Plan Assessment Current Active Medications: Generic Name Dose Route Start Last Admin Trade Name Freq PRN Reason Stop Dose Admin Apixaban 2.5 mg 07/22/24 09:00 07/22/24 09:09 Apixaban 2.5 Mg Tablet PO 08/21/24 08:59 2.5 mg BID KOTA Administration Aspirin 81 mg 07/22/24 09:00 07/22/24 09:10 Aspirin Ec 81 Mg Tabec PO 08/21/24 08:59 81 mg QDAY KOTA Administration Azithromycin 500 mg 07/21/24 09:00 07/22/24 09:10 Azithromycin 250 Mg Tablet PO 07/28/24 08:59 500 mg QDAY KOTA Administration Benzonatate 100 mg 07/21/24 11:42 07/22/24 05:51 Benzonatate 100 Mg Capsule PO 08/20/24 11:41 100 mg Q8HR PRN Administration COUGH Protocol Dextrose 25 ml 07/20/24 15:46 Dextrose 50%-Water Inj 50 Ml Syringe IV 08/19/24 15:45 Q15MIN PRN BG 50-70 responsive npo pt Dextrose 50 ml 07/20/24 15:46 07/21/24 07:46 Dextrose 50%-Water Inj 50 Ml Syringe IV 08/19/24 15:45 50 ml Q15MIN PRN Administration BG <50 OR BG <70 & pt unresponsive Glucagon 1 mg 07/20/24 15:46 Glucagon Inj 1 Mg Vial IM Q15MIN PRN BG <70, and no IV access Guaifenesin/Dextromethorphan 1 each 07/20/24 16:08 Guaifenesin/Dm Tablet PO 08/19/24 16:07 Q4HR PRN COUGH Protocol Ceftriaxone Sodium/Dextrose 50 mls @ 100 mls/hr 07/21/24 09:00 07/22/24 09:10 Rocephin/D5w 1gm Iv Premix IV 07/28/24 08:59 100 mls/hr QDAY KOTA Administration Albumin Human 25 gm in 100 mls @ 100 mls/min 07/20/24 17:18 07/21/24 14:16 Albuminar-25 Ivpb IV 100 mls/min PRN PRN Administration DIALYSIS Meropenem 500 mg/ Sodium 50 mls @ 100 mls/hr 07/22/24 13:00 Chloride IV 07/29/24 12:59 Q24H KOTA Insulin Human Lispro 0 unit 07/20/24 17:00 07/22/24 11:53 Insulin Lispro (Admelog) 1 Unit/0.01 Ml Unit SC 08/19/24 16:59 3 unit ACHS KOTA Administration Protocol Insulin Human Lispro 5 unit 07/20/24 17:00 07/21/24 08:09 Insulin Lispro (Admelog) 1 Unit/0.01 Ml Unit SC 08/19/24 16:59 Not Given ACHS KOTA Ipratropium [place] 0.5 mg 07/20/24 19:00 07/22/24 13:54 Ipratropium Rt 0.5 Mg/ 2.5 Ml Nebu INH 08/19/24 18:59 Not Given Q6HRRT KOTA Levalbuterol HCl 0.63 mg 07/21/24 10:00 07/22/24 13:55 Levalbuterol Rt 0.63 Mg/3 Ml Nebu INH 08/20/24 09:59 Not Given Q6HRRT KOTA Levothyroxine Sodium 50 mcg 07/22/24 06:00 07/22/24 05:51 Levothyroxine Sodium 25 Mcg Tablet PO 08/21/24 05:59 50 mcg ACBR KOTA Administration Melatonin 3 mg 07/21/24 00:29 07/21/24 20:37 Melatonin 3 Mg Tablet PO 08/20/24 20:59 3 mg HS PRN Administration SLEEPLESSNESS Metoprolol Succinate 50 mg 07/20/24 21:00 07/21/24 20:37 Metoprolol Succinate Xl 25 Mg Tabcr PO 08/19/24 20:59 Not Given HS KOTA Polyethylene Glycol 17 gm 07/20/24 15:45 07/22/24 09:38 Polyethylene Glycol 17 Gm Packet PO 08/19/24 15:44 Not Given QDAY KOTA Sennosides 1 tab 07/20/24 15:41 Senna Tablet PO 08/19/24 15:40 QDAY PRN CONSTIPATION Protocol Tramadol HCl 50 mg 07/21/24 00:26 07/22/24 05:52 Tramadol Hcl 50 Mg Tablet PO 07/26/24 00:25 50 mg Q6H PRN Administration Pain (Scale Score 4-6) Plan Patient is a 68-year-old female with a past medical history of hypertension, diabetes mellitus type 2 insulin-dependent, CAD, CHF HFpEF 60-65%, ESRD (MWF), Atrial Fibrillation on Eliquis and history of renal cell carcinoma s/p Left nephrectomy (2022) who was admitted on who was admitted for acute chf exacerbation, pneumonia, and Atrial Fibrilation w/ RVR. #Pneumonia #Community-acquired Patient presented with increased cough for the past 3 weeks that has been productive. Likely send secondary to viral superimposed bacteria given bilateral component. Likely gram-positive cocci suggest strep pneumoniae. Cocci less likely. PE cannot be ruled out as wells criteria 6 points (16% of PE in the ED). Venous U/S of Lower extremity Negative. LA less likely given no st elevation on EKG but troponins are slighlty elevated at 0.12. Following. No chest pain. COVID flu negative. 07/21/2024 Gram Stain: Epithelial Cells, WBC 1. no organisms seen. Sputum Culture Pending. Plan Ceftriaxone 1 g (07/20/2024) Azithromycin 500 daily x3 days, completed Sputum culture Chest physio Cough syrup MRSA screen CBC CMP #Atrial Fibrillation #Atrial fibrillation with RVR, resolved. Patient has a past medical history of atrial fibrillation. Home medication of amiodarone 400 twice daily and digoxin 125 mcg daily. Currently holding amiodarone twice daily given elevated TSH as it can cause hyper or hypothyroidism. Pending digoxin levels. Pending final recommendations from cardiology. Second EKG ordered, to confirm A-fib with RVR. RVR likely triggered by pneumonia, CHF exacerbation and lack of dialysis completion. Plan Hold Amiodarone and Digoxin Continue Metoprolol Succinate 50 mg HS If metoprolol fails, consider starting Digoxin 0.125 mg then continue every other day Contact Dr. Leonard on Tuesday if patient is still here Cardiology Consulted, Dr. Ring, appreciate recommendations. #Acute CHF exacerbation #HFpEF 60 to 65% #Acute Hypoxic Respirtory Failure, resolved #Elevated troponins Has a past medical history of CHF. No Lasix noted for patient. Preserved ejection fraction of 55 to 60% on 03/18/2023. Pulmonary pressure noted 31 mmHg. Pending new echo. Lasix 40 mg x 1 IV push given. Patient patient scheduled for dialysis today, reevaluate tomorrow's fluid status. Patient still produces some urine. Positive Orthopnea. Positive Paroxsymal Orthopnea. Requires several pillows to sleep. Wheelchair bound. Lower Pedal edema noted. Lower extremeity wound noted. BNP 1261. Prominent vascular congestion. NYHA Class: IV Cardiology recommended working towards GDMT outpatient due to soft BP. Patient successfully weaned off O2. Plan: -Metoprolol Succinate 50 HS -K>4 and Mg >2, caution-patient is dialysis. Monitor closely. -Fluid Restriction and Sodium Restriction 2 g per day -Daily Weights, Strict Ins and Outs, Fluid Striction (1800 ml), Sodium Restriction 2 grams per day -wound care -Cardiology Consult, appreciate recommendations. Hypothyroidism Patient presented with a TSH level of 118.25 and a T4 of 0.46 and 1.7 T3. Levothyroxine started 25 mcg p.o. before meals. Medication induced versus euthyroidism versus myxedema coma (less likely). Second TSH 87.56 on 07/21/2024. Plan Levothyroxine 50 mcg p.o. before meals #ESRD (Tuesday Patient has a past medical history of dialysis likely secondary to nephrectomy from renal cell carcinoma (2022). Patient did not complete dialysis today. Inpatient dialysis on 07/20/2024, Dr. Ventura consulted. 07/20/2024-Net removal 2 UF. 07/21/2024-Planned Dialysis Plan Dialysis as per patient's home schedule Renally dose medication Avoid nephrotoxins Phosphorus improved Follow-up with phosphate consider restarting the Sevelamer, based on nephrology recommendations Consult Nephrology, Appreciate Recommendations, Dr. Ventura #Diabetes mellitus type 2 insulin-dependent #Hypoglycemic episode, resolved. Past medical history of diabetes mellitus with Lantus 40 units daily. Previous A1c on 04/07/2023 showed 5%. Glucose on admission 199. Patient experienced a hypoglycemic episode this morning despite having home Lantus reduced by 50% on admission. Stopped Lantus. Stopped scheduled Lispro. Keep sliding scale on. Average glucose 128 and A1c 6.1 Plan Sliding scale ACHS Bedside sugar checks Q6hrs Diet carbohydrate consistent low #Urinary tract infection, complicated Patient presented with a positive UA showing positive esterase, positive WBCs and +1 bacteria. Past medical history of UTIs. Dysuria positive. Negative for suprapubic tenderness. Culture positive for ESBL, patient symptomatic with burning urination Plan -Meropenem 500 mg every 8 hours (renally dosed) #Hyperlipidemia #CAD Home medication atorvastatin. Currently holding Lipid Cholesterol 69 L, LDL 24, HDL 34; unable to calculate ASCVD given low cholesterol Plan Follow AST's ALT's Consider restarting Atorvastatin on discharge. #Hypertension Home medication of metoprolol tartrate 25 mg BID as home medication Plan -Metoprolol Tartrate 25 mg BID D/C -Metoprolol Succinate 50 mg PO HS-->BP & CHF GDMT Health Maintenance: Disp: Telemetry FEN: carb consistent low, fluid restricted 1500, and 2 gram sodium DVT: on subQ heparin Code: Full code - The patient's plan was discussed with senior resident Dr. Everett PGY-[address] Jeannie Philip MD PGY-1 Senior Resident Attestation: I discussed with and supervised the strategy intern physician involved in the care of this patient. I personally saw and examined the patient and discussed the assessment and plan with the entire medicine team, including my attending. I agree with the assessment and plan as documented above. [ Patient seen examined at bedside. Patient doing much better today. Labs and vitals have been reviewed. Urine culture returned ESBL. Patient was placed on meropenem, Rocephin DC'd.. Patient has ESRD on dialysis. Heart rate is rate controlled. Anticipatory discharged 48 hours. ] - Patient's care was discussed with my attending physician. George Everett MD Internal Medicine PGY-3 Attending Provider Attestation/Addendum I have discussed and was present for the essential components of the history, physical examination, diagnosis, and treatment plan with the resident. I agree with the patient's care as documented by the resident and amended herein by me. Gary Dennis DO. Patient seen and evaluated this AM. Vital signs stable, patient afebrile overnight, no subjective complaints per patient. Troponins of down trended, echo revealed EF 35% with moderate systolic dysfunction, urine cultures demonstrating ESBL E. coli and the patient does endorse dysuria which is new., will start the patient on Zosyn today, likely discharge tomorrow on 07/22. Will continue metoprolol for now, holding Amio and digoxin, heart failure measures in place, cardiology consulted, appreciate recommendations. Although this document has been carefully reviewed, there may still be some phonetic and other typographical errors. These errors are purely grammatical due to imperfections in the software program and should not be construed in any way to compromise the substance of the patient's medical care during this visit.
[2024-07-22] MEDS: SODIUM CHLORIDE 0.9% IV (14:51)
[2024-07-22] MEDS: MEROPENEM IV (14:51)
[2024-07-22] MEDS: METOPROLOL SUCCINATE XL 25 MG TABCR 50 MG PO (20:43)
[2024-07-23] VITALS (25 sets, daily range): BP systolic 83–137; BP diastolic 30–104; PULSE 59–122; RESP 17–25; TEMP 35.8–36.3; O2SAT 93–100; BMI 30.6; BMI 11.0
[2024-07-23] MEDS: IPRATROPIUM RT 0.5 MG/ 2.5 ML NEBU INH ×3 (00:57→18:43)
[2024-07-23] MEDS: LEVALBUTEROL RT 0.63 MG/3 ML NEBU INH ×3 (00:57→18:44)
[2024-07-23] MEDS: traMADol HCL 50 MG TABLET PO ×3 (03:21→22:29)
[2024-07-23] MEDS: BENZONATATE 100 MG CAPSULE PO ×2 (05:43→22:29)
[2024-07-23] MEDS: LEVOTHYROXINE SODIUM 25 MCG TABLET 50 MCG PO (05:43)
[2024-07-23] MEDS: PIPER/TAZO 2.25 GM 2.25 GM/50 ML BAG IV ×3 (05:44→20:33)
[2024-07-23 06:17] LABS: Basophils # (Auto) 0.1 Thou/mm3 (0.0-0.2); Basophils % (Auto) 1 % (0-2.5); Eosinophils # (Auto) 0.1 Thou/mm3 (0.0-0.5); Eosinophils % (Auto) 2 % (0-10); Hematocrit 30.3 % (36.0-46.0); Hemoglobin 9.6 g/dL (12.0-16.0); Immature Granulocytes % (Auto) 1 % (0-0); Immature Granulocytes Auto 0.03 Thou/mm3 (0.00-0.00); Lymphocytes # (Auto) 1.4 Thou/mm3 (1.0-4.8); Lymphocytes % (Auto) 28 % (10-50); Mean Corpuscular HGB Conc 31.7 g/dl (31.0-37.0); Mean Corpuscular Hemoglobin 31.1 pg (25.0-35.0); Mean Corpuscular Volume 98 fL (80-100); Monocytes # (Auto) 0.3 Thou/mm3 (0.0-0.8); Monocytes % (Auto) 5 % (0-12); Neutrophils # (Auto) 3.1 Thou/mm3 (1.8-7.7); Neutrophils % (Auto) 63 % (37-80); Nucleated Red Blood Cell % 0 /100 WBC (0); Platelet Count 151 Thou/mm3 (140-440); RDW Standard Deviation 56.5 fL (36.4-46.3); Red Blood Count 3.09 Miln/mm3 (4.00-5.20); White Blood Count 4.9 Thou/mm3 (3.6-11.0)
[2024-07-23 06:33] LABS: Alanine Aminotransferase 57 U/L (10-49); Albumin, Serum 3.6 gm/dL (3.4-4.8); Albumin/Globulin Ratio 1.2 (1.2-2.2); Alkaline Phosphatase 206 U/L (46-116); Anion Gap 10 (7-16); Aspartate Amino Transferase 67 U/L (0-34); BUN/Creatinine Ratio 7 Ratio (12-20); Bilirubin,Total 0.3 mg/dL (0.3-1.2); Blood Urea Nitrogen 36 mg/dL (9-23); Calcium 8.9 mg/dL (8.3-10.6); Calcium (Corrected) 9.2 mg/dL (8.5-10.1); Carbon Dioxide 27.2 mMol/L (20.0-31.0); Chloride 96 mMol/L (98-107); Creatinine (Component) 5.3 mg/dL (0.6-1.3); Estimated Creatinine Clearance 12.4 mL/min (>60); Glucose 147 mg/dL (74-106); Magnesium 2.2 mg/dL (1.6-2.6); Osmolality,Calculated 277 (275-295); Phosphorous 4.9 mg/dL (2.4-5.1); Potassium 4.7 mMol/L (3.4-5.1); Sodium 133 mMol/L (136-145); Total Protein 6.6 gm/dL (5.7-8.2); eGFR 8 See Note
[2024-07-23] MEDS: INSULIN LISPRO (AdmeLOG) 1 UNIT/0.01 ML UNIT SC ×3 (07:26→20:50)
--- NOTE | 2024-07-23 08:39 | PC.SS ---
Addendum entered by Brit Bragg 07/23/24 15:32: SS sent PT notes to Floridalma from [facility] through [employer] platform. Addendum entered by Brit Bragg 07/23/24 14:16: SS contacted PT and Alo betancourt PT bus assistant to input PT notes. Patient is pending PT notes for auth. Original Note: SS follow up note; HYACINTH contacted Floridalma from [facility] in regards to patient needing auth. Floridalma informed SS that patient will need auth. SS contacted Dr. Montero and informed her patient needs PT eval order for auth. SS will sent clinicals to Floridalma once PT note is in place.
[2024-07-23] MEDS: APIXABAN 2.5 MG TABLET PO ×2 (08:50→20:34)
[2024-07-23] MEDS: ASPIRIN EC 81 MG TABEC PO (08:50)
--- NOTE | 2024-07-23 09:14 | ESPR_ITS ---
Documentation for date of: 07/23/24 Subjective Subjective Interval history: 07/22/2024: Patient examined at bedside today. Overnight events for patient on telemetry includes patient being still in A-fib however rate controlled in the 90s. She says she is doing well, is not experiencing chest pain or shortness of breath. She says she is hanging in there, has not noticed a big difference in her swelling of her legs. Says that she is going to get dialysis tomorrow. Patient will not continue amnio due to thyroid issues . Hold off on digoxin for now. If the patient goes into A-fib with RVR and blood pressure is low then we can start digoxin at 125 mcg every other day and monitor the levels in 7 days to adjust digoxin dosage. Patient potassium level should be carefully monitored for any hypokalemia and hyperkalemia as it can cause dig toxicity which patient did have previously as per the chart review and hence recommend to hold digoxin for now as rate is controlled. Previous chart records show that patient had a cardiac arrest in 2019 either due to V-fib or V. tach but there was not information in regards to the EKG. Dr. Ellis was consulted but not much information could be extrapolated from the notes. Will continue to treat patient with metoprolol 50 XL as she is rate controlled, and symptoms go low with her blood pressure during dialysis in which she can get midodrine if this is a concern. Patient is currently being treated for ESBL E. coli as well on Rocephin and azithromycin. Echo shows dilated left ventricle with mild global hypokinesis and moderate systolic dysfunction 35 to 40% for EF. She also has right ventricle systolic pressure of 62 and severe MAC, pleural effusion present in trace pericardial effusion. Levothyroxine increased to 50 mcg 07/23/2024: Patient examined at bedside today. No overnight events on telemetry, rate controlled in the 90s, still in fib but rate controlled. Says she is doing well, said had dialysis earlier today 2 L removed. BUN/creatinine 28 and 4.7 respectively, magnesium potassium 2.2 and 4.1 respectively. Patient likely to continue metoprolol 50 XL. She would likely continue with dialysis and follow-up with Dr. Ventura outpatient. She will not be taking Amio or digoxin moving forward and her rate is controlled metoprolol 50 XL. She will have to continue to take Synthroid 50 mcg as well. Exam Vital Signs Temp Pulse Resp BP Pulse Ox O2 Del Method O2 Flow Rate 97.0 F 86 23 H 104/61 99 Nasal Cannula 1 07/23/24 08:00 07/23/24 08:00 07/23/24 08:00 07/23/24 08:00 07/23/24 08:00 07/23/24 08:00 07/23/24 08:00 Narrative Exam General: AAOx3, NAD, Lying in bed when examined, pleasant obese woman HEENT: Moist mucous membranes, conjunctiva clear, EOMI, PERRLA, poor dentition (does not wear dentures) Cardiovascular: S1, S2, radial pulses +2 bilat, RRR Pulmonary: Crackles heard diffusely in lung anderson bilat but improved from yesterday GI: No tenderness to light or deep palpitation, no guarding, rigidity, rebound tenderness or distension Extremities: Pitting edema +2 bilat in LE Neuro: AAOx3, no focal motor or sensory deficits in the UE or LE bilat Psych: Cooperative Objective Labs 07/23/24 05:51 07/23/24 05:51 Labs: Laboratory Results - last 24 hr 07/23/24 05:51 WBC 4.9 RBC 3.09 L Hgb 9.6 L Hct 30.3 L MCV 98 MCH 31.1 MCHC 31.7 RDW Std Deviation 56.5 H Plt Count 151 Neut % (Auto) 63 Lymph % (Auto) 28 [place] % (Auto) 5 Eos % (Auto) 2 Baso % (Auto) 1 Neut # (Auto) 3.1 Lymph # (Auto) 1.4 [place] # (Auto) 0.3 Eos # (Auto) 0.1 Baso # (Auto) 0.1 Immature Gran # (Auto) 0.03 H Absolute Nucleated RBC 0.00 Immature Gran % 1 H Nucleated RBC % 0 Sodium 133 L Potassium 4.7 D Chloride 96 L Carbon Dioxide 27.2 Anion Gap 10 BUN 36 H Creatinine 5.3 H* D Estim Creat Clear Calc 12.4 L eGFR 8 L* BUN/Creatinine Ratio 7 L Glucose 147 H Calculated Osmolality 277 Calcium 8.9 Corrected Calcium 9.2 Phosphorus 4.9 Magnesium 2.2 Total Bilirubin 0.3 AST 67 H ALT 57 H Alkaline Phosphatase 206 H D Total Protein 6.6 Albumin 3.6 Globulin 3.0 Albumin/Globulin Ratio 1.2 Quality Measures Quality Measures VTE prophylaxis Advance care planning discussed with:: patient Assessment & Plan Assessment Current Active Medications: Generic Name Dose Route Start Last Admin Trade Name Freq PRN Reason Stop Dose Admin Apixaban 2.5 mg 07/22/24 09:00 07/23/24 08:50 Apixaban 2.5 Mg Tablet PO 08/21/24 08:59 2.5 mg BID KOTA Administration Aspirin 81 mg 07/22/24 09:00 07/23/24 08:50 Aspirin Ec 81 Mg Tabec PO 08/21/24 08:59 81 mg QDAY KOTA Administration Benzonatate 100 mg 07/21/24 11:42 07/23/24 05:43 Benzonatate 100 Mg Capsule PO 08/20/24 11:41 100 mg Q8HR PRN Administration COUGH Protocol Dextrose 25 ml 07/20/24 15:46 Dextrose 50%-Water Inj 50 Ml Syringe IV 08/19/24 15:45 Q15MIN PRN BG 50-70 responsive npo pt Dextrose 50 ml 07/20/24 15:46 07/21/24 07:46 Dextrose 50%-Water Inj 50 Ml Syringe IV 08/19/24 15:45 50 ml Q15MIN PRN Administration BG <50 OR BG <70 & pt unresponsive Epoetin Ant 10,000 unit 07/23/24 10:00 Epoetin Ant-Epbx Inj 10,000 Unit/Ml Vial (Non-Esrd) SC 07/23/24 10:01 X1 ONE Glucagon 1 mg 07/20/24 15:46 Glucagon Inj 1 Mg Vial IM Q15MIN PRN BG <70, and no IV access Guaifenesin/Dextromethorphan 1 each 07/20/24 16:08 Guaifenesin/Dm Tablet PO 08/19/24 16:07 Q4HR PRN COUGH Protocol Albumin Human 25 gm in 100 mls @ 100 mls/min 07/20/24 17:18 07/21/24 14:16 Albuminar-25 Ivpb IV 100 mls/min PRN PRN Administration DIALYSIS Piperacillin/Tazobactam/Dextrose 2.25 gm in 50 mls @ 100 mls/hr 07/23/24 06:00 07/23/24 05:44 Zosyn IV 07/30/24 05:59 100 mls/hr Q8HR KOTA Administration Insulin Human Lispro 0 unit 07/20/24 17:00 07/23/24 07:26 Insulin Lispro (Admelog) 1 Unit/0.01 Ml Unit SC 08/19/24 16:59 2 unit ACHS KOTA Administration Protocol Insulin Human Lispro 5 unit 07/20/24 17:00 07/21/24 08:09 Insulin Lispro (Admelog) 1 Unit/0.01 Ml Unit SC 08/19/24 16:59 Not Given ACHS KOTA Ipratropium Gordon 0.5 mg 07/20/24 19:00 07/23/24 06:30 Ipratropium Rt 0.5 Mg/ 2.5 Ml Nebu INH 08/19/24 18:59 0.5 mg Q6HRRT KOTA Administration Levalbuterol HCl 0.63 mg 07/21/24 10:00 07/23/24 06:30 Levalbuterol Rt 0.63 Mg/3 Ml Nebu INH 08/20/24 09:59 0.63 mg Q6HRRT KOTA Administration Levothyroxine Sodium 50 mcg 07/22/24 06:00 07/23/24 05:43 Levothyroxine Sodium 25 Mcg Tablet PO 08/21/24 05:59 50 mcg ACBR KOTA Administration Melatonin 3 mg 07/21/24 00:29 07/21/24 20:37 Melatonin 3 Mg Tablet PO 08/20/24 20:59 3 mg HS PRN Administration SLEEPLESSNESS Metoprolol Succinate 50 mg 07/20/24 21:00 07/22/24 20:43 Metoprolol Succinate Xl 25 Mg Tabcr PO 08/19/24 20:59 50 mg HS KOTA Administration Polyethylene Glycol 17 gm 07/20/24 15:45 07/23/24 08:53 Polyethylene Glycol 17 Gm Packet PO 08/19/24 15:44 Not Given QDAY KOTA Sennosides 1 tab 07/20/24 15:41 Senna Tablet PO 08/19/24 15:40 QDAY PRN CONSTIPATION Protocol Tramadol HCl 50 mg 07/23/24 08:02 Tramadol Hcl 50 Mg Tablet PO 07/26/24 00:25 BID PRN PAIN SCALE 4-6 (Moderate Protocol Plan Assessment Zina is a 67 y/o female from [facility] with a past medical history of DM type II, HTN, ESRD on HD MWF, CAD, CHF, atrial fibrillation on Eliquis, left renal neoplasm s/p nephrectomy who is admitted for Afib w/RVR. 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 Patient potassium level should be carefully monitored for any hypokalemia and hyperkalemia as it can cause dig toxicity which patient did have previously as per the chart review and hence recommend to hold digoxin for now as rate is controlled. ?Continue Eliquis 5 mg twice daily ?Keep potassium and magnesium above 4 and 2 respectively #History of CAD #History of chronic HFrEF with systolic dysfunction and dilated left ventricle and wall motion abnormalities #Trace pericardial effusion #Elevated troponins, NSTEMI type II, resolved Echo shows dilated left ventricle with mild global hypokinesis and moderate systolic dysfunction 35 to 40% for EF. She also has right ventricle systolic pressure of 62 and severe MAC, pleural effusion present in trace pericardial effusion. Plan: ?Continue with aspirin ?Continue with GDMT therapy as able, on metoprolol 50 XL at this point #History of type 2 diabetes #History of hypertension A1c 6.1 Plan: ? Resume home medicines when able #ESRD, on HD Tuesday #hx of L nephroectomy #Lower extremity edema Likely related due to patient not getting enough dialysis Dr. Fields sees pt, says she goes for diaylsis 4x a week Will plan for dialysis tomorrow, BUN/creatinine 28 and 4.7 respectively today Plan: ? Nephrology on consult, appreciate recs #Hypothyroidism TSH ~110, Free T4 0.46; Recheck shows TSH ~80s No hx of hypothyroidism in the past Pt's BP could be low because of this as well Hypothyroidism from continuous churn buttermaker Amio, Will not resume Plan: ?Increase to levo 50 mcg Patient seen and care discussed with my attending physician, Dr. Octavia Mcmahon, PGY-1 Attending Provider Attestation/Addendum I have personally seen and examined the patient separately on the above date of service and discussed the plan of care with the resident. I reviewed the resident Dr. Steiner consultation progress note and agree with the resident findings and plan in the note above and have also edited the documentation to reflect my findings and plan. Orestes Dudley M.D. Interventional Cardiology
[2024-07-23] MEDS: ALBUMIN HUMAN 25% IVPB 25 GM/100 ML BTL IV (09:26)
--- NOTE | 2024-07-23 09:38 | ESDS_ITS ---
<Statement entered by Brandon Montero MD - 07/23/24 16:30> I saw and examined the patient, and I agree with current management stated by Dr Brittney MD,PGY1. Plan of care was discussed with the attending physician and resident physician. Disclaimer: Despite multiple revisions, due to the dictation software being used, the document bellow may not be free of grammatical errors including phonetic/typographic errors. However, this does not deter from our commitment to providing health care in the patient's best interest in mind. Dr. Winston MD, PGY 2 Planned Discharge Date 07/23/24 DS: Providers Provider Date of admission: 07/20/24 14:57 Primary care physician: Lorraine Ventura MD Admitting Provider: Anselmo Dennis DO Attending Provider on Admission: Anselmo Dennis DO Consults: 07/20/24 13:30 Consult to Cardiology Stat Comment: Consulting Provider: Orestes Dudley Instructions: Elevated Troponin 07/20/24 13:51 Consult to Nephrology Stat Comment: Consulting Provider: Lorraine Ventura 07/20/24 15:47 Referral Registered Dietitian Routine Comment: 07/21/24 00:30 Referral Registered Dietitian Routine Comment: New pt, abrasion rt lower leg, skin tear rt FA Referral Wound Care Routine Comment: New pt, abrasion rt lower leg, skin tear rt FA 07/23/24 08:40 Referral Physical Therapy Routine Comment: Physician Instructions: Attending Provider on DC: La Lugo MD Discharging Provider: La Lugo MD DS: Diagnosis Problem List Completed Was Problem List Reviewed/Reconciled?: Yes Hospital Course Hospital Course Hospital course: Summary: Patient is a 68-year-old female with a past medical history of hypertension, diabetes mellitus type 2 insulin-dependent, CAD, CHF systolic dysfunction HFpEF 35 to 40% (07/20/2024), moderate PAH 62 mmHg, ESRD (MWF), Atrial Fibrillation on Eliquis and history of renal cell carcinoma s/p Left nephrectomy (2022) who was admitted on who was admitted for acute chf exacerbation, pneumonia, complicated UTI, and Atrial Fibrilation w/ RVR. ER Course: Patient's vitals were stable blood pressure 141/78, heart rate fluctuating between 110 and 100, respiratory rate 18, started on nasal cannula 3 L saturating at 98%. Patient was found to have elevated bicarb 32.3, elevated BUN 28, elevated creatinine 4.6, creatinine clearance of 14.6, GFR of 10. Patient is a dialysis patient who missed current session. Dialysis likely. Glucose 199. Elevated AST's and ALTs with alkaline phosphatase elevated. Troponin 0.120, continue to trend. BNP elevated 1261. Chest x-ray showed bilateral pneumonia with pulmonary vascular congestion prominent. EKG showed A-fib with RVR, we will will repeat EKG. Venous Doppler showed negative DVT. Medication given in the emergency room Lasix 40 mg x 1, nitroglycerin, cefepime, morphine, aspirin 325. Hospital Course: On arrival patient was found to have atrial fibrillation with RVR, patient was started on metoprolol XL 50 mg at bedtime. Home medication of digoxin and amiodarone were DC'd given elevated TSH levels of 118.25, free T4 was low at 0.46, and free T31.7. TSH continued to downtrend the following day at 87.56. Patient was started on levothyroxine 25 mg 30 minutes before each meal. Patient denied symptoms of hypothyroidism. Negative for hypothermia or excessive weight gain, negative for bradycardia. Given acute CHF exacerbation echo follow-up showed CHF HFrEF of 35 to 40% with mild global hypokinesia and elevated pulmonary pressure, RR VSP 62, thus moderate PAH. Patient was treated for community-acquired pneumonia likely secondary to gram-positive bacteria. Blood culture negative. Patient was found to have a positive urinary tract infection, urine cultures shown to grow E. coli, ESBL. Patient will complete 9 additional days of Augmentin for UTI complicated and pneumonia. Amiodarone DC'd. Digoxin may be restarted if atrial fibrillation is present and blood pressure is soft, please see DC instructions. Please follow-up with your primary care provider and upper doubler. Given past medical history of atrial fibrillation, and history of ESRD Eliquis decreased to 2.5 mg twice daily. Continue to monitor your glucose closely and take medication as prescribed. Instructions: -Please start new lower dose of Eliquis, 2.5 twice a day for clot prevention -Please start Metoprolol succinate 50 mg once a day for atrial fibrillation and heart failure. -Continue to Hold Digoxin, if patient goes into Atrial Fibrillation w/ RVR and blood pressure is low, then you may restart Digoxin at 125 mcg every other day and monitor the levels in 7 days to adjust Digoxin dosage. -Please stop Amiodarone -Please monitor your weight, any changes increase greater than 2 lbs please contact your Primary Care Provider or Lifeguard to make adjustments to your lasix pills -Please keep sodium intake less than 2 grams and water intake 1800 ml -Please continue continue Lantus 10 units at night for diabetes Mellitus -Goal glucose in the morning of 80-130 and glucose after meals of 200. -Please continue Augmentin 500-125 once a day for 9 more days, for Urinary Tract infection and Pneumonia. -Please start Midodrine 5 mg oral up to three times a day for low blood pressure NEEDED, please take if blood pressure <80/60 -Please continue all your medication as prescribed -Please follow up with your primary care provider within one week of discharge and Cardiologiststs within one week of discharge. -If your symptoms worsen,please seek immediate medical attention and return to your nearest emergency room -If you do not have a primary care provider, you may follow up at the [facility] at [facility] [address], [place] [address], Disposition: SNF #community acquired pneumonia likely [facility]PC #Atrial Fibrillation #A-fib with RVR, Resolved #Urinary tract infection, complicated #History of cardiac arrest #Hypotension, improved #History of CAD #History of chronic HFrEF with systolic dysfunction and dilated left ventricle and wall motion abnormalities #Moderate Pulmonary Hypertension 62 mmHg #Trace pericardial effusion #Elevated troponins, NSTEMI type II, resolved #History of type 2 diabetes #History of hypertension #ESRD, on HD Tuesday #hx of L nephroectomy #Lower extremity edema #New onset of Hypothyrodism - The patient's plan was discussed with attending Dr. Dennis and senior residents Dr. Winston Lugo MD PGY1 Internal Medicine Time Spent with Patient Time attestation: Total time spent providing and/or coordinating discharge services: at least 35 m inutes in care and coordination Exam Vital Signs Temp Pulse Resp BP Pulse Ox O2 Del Method O2 Flow Rate 96.8 F 94 23 H 83/60 L 99 Nasal Cannula 1 07/23/24 09:15 07/23/24 09:15 07/23/24 09:15 07/23/24 09:15 07/23/24 09:15 07/23/24 08:00 07/23/24 09:15 Narrative Exam General Appearance: Alert & Oriented X3, well-nourished female who is lying in bed in no acute distress HEENT: Skull symmetrical and atraumatic. Conjunctivae pale pink and moist. Pupils equal, round, reactive to light and accommodation (PERRL). External ear without lesion or discharge. Straight, nares patient, mucosa pink, no discharge. No thyroid nodule appreciated. No cervical lymphadenopathy. Cardio: Normal Rate and Rhythm with S1 and S2 heart sounds. No murmurs or extra heart sounds auscultated. No bruits on carotid auscultation. Peripheral edema +1, improved Lungs: Symmetric with good expansion. Chest and back non-tender. Breath sounds vesicular with mild wheezing and improved crackles Abdomen: Non-tender, Non-distended, Normal Reactive Bowel Sounds Neuro: Alert, cooperative, oriented to person, place, and time. Speech clear. CN grossly intact. Upper motor strength 5/5 and Lower motor strength 5/5. Sensation intact. Discharge Plan Plan Patient Disposition: Xfer Skilled Nsg Fac (SNF) Care Plan Goals: Instructions: -Please start new lower dose of Eliquis, 2.5 twice a day for clot prevention -Please start Metoprolol succinate 50 mg once a day for atrial fibrillation and heart failure. -Continue to Hold Digoxin, if patient goes into Atrial Fibrillation w/ RVR and blood pressure is low, then you may restart Digoxin at 125 mcg every other day and monitor the levels in 7 days to adjust Digoxin dosage. -Please stop Amiodarone -Please monitor your weight, any changes increase greater than 2 lbs please contact your Primary Care Provider or Lifeguard to make adjustments to your lasix pills -Please keep sodium intake less than 2 grams and water intake 1800 ml -Please continue continue Lantus 10 units at night for diabetes Mellitus -Goal glucose in the morning of 80-130 and glucose after meals of 200. -Please continue Augmentin 500-125 once a day for 9 more days, for Urinary Tract infection and Pneumonia. -Please start Midodrine 5 mg oral up to three times a day for low blood pressure NEEDED, please take if blood pressure <80/60 -Please continue all your medication as prescribed -Please follow up with your primary care provider within one week of discharge and Cardiologiststs within one week of discharge. -If your symptoms worsen,please seek immediate medical attention and return to your nearest emergency room -If you do not have a primary care provider, you may follow up at the [facility] at [facility] [address], [place] [address], Disposition: SNF Prescriptions/Referrals Prescriptions/Med Rec: New Eliquis 2.5 mg Tablet 2.5 mg PO BID Qty: 30 0RF benzonatate 100 mg Capsule 100 mg PO Q8HR PRN (Reason: Cough) 30 Days Qty: 30 0RF metoprolol succinate 50 mg tablet extended release 24 hr 50 mg PO HS Qty: 30 0RF levothyroxine 25 mcg Tablet 25 mcg PO ACBR 30 Days Qty: 30 0RF insulin glargine [Lantus Solostar U-100 Insulin] 100 unit/mL (3 mL) insulin pen 10 unit subcut QPM Qty: 15 0RF amoxicillin-pot clavulanate 500-125 mg tablet 1 tab PO QDAY 9 Days Qty: 9 0RF midodrine 5 mg tablet 5 mg PO TID PRN (Reason: hypotension) Qty: 30 0RF Rx Instructions: do not give last dose of day after 6PM or within 4 hrs of bedtime Give if SBP drops below 80 and DBP below 60 mmHg Continued (DME) True Metrix Glucose Test Strip strip Patient Comments: USE STRIP TO CHECK GLUCOSE DIRECTED ONCE DAILY Rx Instructions: check as directed once daily (DME) pen needle, diabetic [BD Ultra-Fine Orig Pen Needle] 29 gauge x 1/2 needle Rx Instructions: check as directed once daily melatonin 3 mg Tablet 3 mg PO HS PRN (Reason: Insomnia) ferrous sulfate [FeroSul] 325 mg (65 mg iron) Tablet 325 mg PO TID loratadine 10 mg Tablet 10 mg PO QDAY magnesium oxide 400 mg magnesium Tablet 400 mg PO TID aspirin 81 mg tablet,delayed release (DR/EC) 81 mg PO QDAY mirtazapine [Remeron] 15 mg Tablet 7.5 mg PO HS bisacodyl [Dulcolax (bisacodyl)] 10 mg Suppository 10 mg IL Q72H PRN (Reason: Constipation) Rx Instructions: If Milk of Magnesia ineffective Fleet Enema 19-7 gram/118 mL Enema 118 ml IL Q72H PRN (Reason: Constipation) Rx Instructions: If Milk of Magnesia/Dulcolax suppository ineffective magnesium hydroxide [Milk of Magnesia] 400 mg/5 mL Suspension 30 ml PO Q72H PRN (Reason: Constipation) Rx Instructions: If no BM in 3 consecutive days Tradjenta 5 mg Tablet 5 mg PO QDAY ondansetron HCl 4 mg Tablet 4 mg PO Q6H PRN (Reason: Nausea And Vomiting) tramadol 50 mg Tablet 50 mg PO Q6H PRN (Reason: Pain (Scale Score 4-6)) diphenhydramine HCl [Benadryl Allergy] 25 mg Tablet 25 mg PO Q8HR PRN (Reason: Itching) Glucagon Emergency Kit (human) 1 mg recon soln 1 mg subcut Rx Instructions: give 1mg Subcut every twenty minutes as needed for bs<60 max 2 doses docusate sodium 250 mg Capsule 250 mg PO DAILY PRN (Reason: Constipation) atorvastatin 40 mg Tablet 40 mg PO HS sevelamer HCl 800 mg Tablet 1,600 mg PO TIDWM Rx Instructions: must administer with a meal/food acetaminophen [Tylenol] 325 mg Tablet 650 mg PO [id number] PRN (Reason: Pain (Scale Score 1-3)) amino acids-protein hydrolys 15 gram- 100 kcal/30 mL Liquid In Packet 1 ea TIDWM Rx Instructions: give 30 mL by mouth with meals for low albumin Held digoxin 125 mcg (0.125 mg) Tablet 125 mcg PO QDAY Hold Instructions: Resume on 07/23/24. Hold until you see your PCP Discontinued insulin glargine [Basaglar SyedikPen U-100 Insulin] 100 unit/mL (3 mL) Insulin Pen 40 unit SUBCUT QAM Rx Instructions: hold for bs <100 notify md is bs <70 or >400 diltiazem HCl 60 mg tablet 60 mg PO BID Rx Instructions: hold for SBP<100 or DBP <60 cephalexin 500 mg capsule 500 mg PO BID Qty: 10 0RF apixaban 5 mg tablet 5 mg PO BID 30 Days Qty: 60 1RF cephalexin 500 mg capsule 500 mg PO Q8H Qty: 30 0RF metoprolol tartrate 25 mg Tablet 25 mg PO BID amiodarone 200 mg tablet 400 mg PO BID Rx Instructions: hold for pulse less than 60 Referrals: Lorraine Ventura MD [Primary Care Provider] - Patient/Caregiver Discharge Instructions Print Language: Kuwaiti Stand Alone Forms: [employer] Info., Patient Portal Info Letter Discharge Order Discharge Orders: Discharge (Routine); Ordered 07/23/24 Ordered By: Brandon Montero Quality Discharge Quality Measures VTE prophylaxis MD Attestestation MD Attestation I have discussed and was present for the essential components of the discharge history, physical examination, diagnosis, and discharge treatment plan with the resident. I agree with the patient's discharge care as documented by the resident and amended herein by me. Gary Dennis DO. The patient understood all discharge instructions, all questions were answered satisfactorily. The patient was instructed to return to the Emergency Department is symptoms worsened or persisted. Patient was stable, afebrile and tolerating p.o. intake at time of discharge. Patient will be discharged on a course of Augmentin for ESBL E. coli UTI in which the patient was symptomatic. Although this document has been carefully reviewed, there may still be some phonetic and other typographical errors. These errors are purely grammatical due to imperfections in the software program and should not be construed in any way to compromise the substance of the patient's medical care during this visit.
--- NOTE | 2024-07-23 10:34 | PD.RESPRO ---
Documentation for date of: 07/23/24 Subjective Subjective Interval history: Ms. Nguyễn is a 68-year-old who is well-known to me with a past medical history significant for hypertension, diabetes mellitus type 2 insulin-dependent, CAD, CHF HFpEF 60-65%, ESRD (MWF), Atrial Fibrillation on Eliquis and history of renal cell carcinoma s/p Left nephrectomy (2022) has been having significant fluid overload and sometimes receiving 4 times weekly dialysis presented to the emergency department with weakness, shortness of breath and high fevers. In the emergency department she was diagnosed with extensive bilateral pneumonia and also severe pulmonary vascular congestion. EKG showed A-fib with RVR. Labs showed WBC 5.2, hemoglobin 12.5, platelets 152. Sodium 132, potassium 3.6, BUN 28, creatinine 4.6, blood sugar 199, calcium 9.6, AST 65, ALT 44, alk phos 201, troponin 0.12, BNP 06/13/1959, albumin 4, TSH 118, Pro-Devon 0.43, urinalysis shows significant amount of blood and 1+ bacteria. Did level 0.4. Hepatitis STUART positive, hep C positive Admitted for pneumonia, acute chf exacerbation, and A-fib RVR, UTI Medication given in the emergency room Lasix 40 mg x 1, nitroglycerin, cefepime, morphine, aspirin 325. Nephrology consultation requested in view of need for dialysis. Patient currently on dialysis 07/22/2024 patient currently seen in telemetry. Still having significant shortness of breath and edema. Patient had a short run of dialysis yesterday. Next dialysis scheduled for tomorrow. Continue with antibiotics. Admitted with pneumonia/CHF exacerbation. 07/23/2024 patient was seen and examined at bedside. Blood pressure still on the soft side 99/65, pulse rate of 91, respiratory rate of 23, O2 saturation 99 on 1 L of oxygen. His hemoglobin is stable at 9.6, WBC 9, sodium show 133, potassium 4.7, serum creatinine 5.3, BUN 36. Urine culture came back positive for ESBL E. coli. Primary team started patient on meropenem. Patient will undergo a session of dialysis today as per his schedule Exam Vital Signs Temp Pulse Resp BP Pulse Ox O2 Del Method O2 Flow Rate 96.8 F 91 23 H 99/65 99 Nasal Cannula 1 07/23/24 09:15 07/23/24 10:15 07/23/24 09:15 07/23/24 10:15 07/23/24 09:15 07/23/24 08:00 07/23/24 09:15 Narrative Exam GEN: AOx3, obese, able to speak full sentences HEENT: NC/AC, oral mucosa moist, neck supple CVS: RRR, S1-S2 present, no murmurs appreciated RESP: Clear, good air entry bilaterally. GI: soft,non distended, non tender, NBS MSK: able to move all 4 limbs, +3 lower extremity edema SKIN: warm and dry [employer]: CN II-XII and Sensation grossly intact. Objective Labs 07/24/24 04:43 07/24/24 04:43 Labs: Laboratory Results - last 24 hr 07/23/24 05:51 WBC 4.9 RBC 3.09 L Hgb 9.6 L Hct 30.3 L MCV 98 MCH 31.1 MCHC 31.7 RDW Std Deviation 56.5 H Plt Count 151 Neut % (Auto) 63 Lymph % (Auto) 28 [place] % (Auto) 5 Eos % (Auto) 2 Baso % (Auto) 1 Neut # (Auto) 3.1 Lymph # (Auto) 1.4 [place] # (Auto) 0.3 Eos # (Auto) 0.1 Baso # (Auto) 0.1 Immature Gran # (Auto) 0.03 H Absolute Nucleated RBC 0.00 Immature Gran % 1 H Nucleated RBC % 0 Sodium 133 L Potassium 4.7 D Chloride 96 L Carbon Dioxide 27.2 Anion Gap 10 BUN 36 H Creatinine 5.3 H* D Estim Creat Clear Calc 12.4 L eGFR 8 L* BUN/Creatinine Ratio 7 L Glucose 147 H Calculated Osmolality 277 Calcium 8.9 Corrected Calcium 9.2 Phosphorus 4.9 Magnesium 2.2 Total Bilirubin 0.3 AST 67 H ALT 57 H Alkaline Phosphatase 206 H D Total Protein 6.6 Albumin 3.6 Globulin 3.0 Albumin/Globulin Ratio 1.2 Quality Measures Quality Measures VTE prophylaxis Advance care planning discussed with:: patient Assessment & Plan Assessment Current Active Medications: Generic Name Dose Route Start Last Admin Trade Name Freq PRN Reason Stop Dose Admin Apixaban 2.5 mg 07/22/24 09:00 07/23/24 08:50 Apixaban 2.5 Mg Tablet PO 08/21/24 08:59 2.5 mg BID KOTA Administration Aspirin 81 mg 07/22/24 09:00 07/23/24 08:50 Aspirin Ec 81 Mg Tabec PO 08/21/24 08:59 81 mg QDAY KOTA Administration Benzonatate 100 mg 07/21/24 11:42 07/23/24 05:43 Benzonatate 100 Mg Capsule PO 08/20/24 11:41 100 mg Q8HR PRN Administration COUGH Protocol Dextrose 25 ml 07/20/24 15:46 Dextrose 50%-Water Inj 50 Ml Syringe IV 08/19/24 15:45 Q15MIN PRN BG 50-70 responsive npo pt Dextrose 50 ml 07/20/24 15:46 07/21/24 07:46 Dextrose 50%-Water Inj 50 Ml Syringe IV 08/19/24 15:45 50 ml Q15MIN PRN Administration BG <50 OR BG <70 & pt unresponsive Glucagon 1 mg 07/20/24 15:46 Glucagon Inj 1 Mg Vial IM Q15MIN PRN BG <70, and no IV access Guaifenesin/Dextromethorphan 1 each 07/20/24 16:08 Guaifenesin/Dm Tablet PO 08/19/24 16:07 Q4HR PRN COUGH Protocol Albumin Human 25 gm in 100 mls @ 100 mls/min 07/20/24 17:18 07/23/24 09:26 Albuminar-25 Ivpb IV 100 mls/min PRN PRN Administration DIALYSIS Piperacillin/Tazobactam/Dextrose 2.25 gm in 50 mls @ 100 mls/hr 07/23/24 06:00 07/23/24 05:44 Zosyn IV 07/30/24 05:59 100 mls/hr Q8HR KOTA Administration Insulin Human Lispro 0 unit 07/20/24 17:00 07/23/24 07:26 Insulin Lispro (Admelog) 1 Unit/0.01 Ml Unit SC 08/19/24 16:59 2 unit ACHS KOTA Administration Protocol Insulin Human Lispro 5 unit 07/20/24 17:00 07/21/24 08:09 Insulin Lispro (Admelog) 1 Unit/0.01 Ml Unit SC 08/19/24 16:59 Not Given ACHS KOTA Ipratropium [place] 0.5 mg 07/20/24 19:00 07/23/24 06:30 Ipratropium Rt 0.5 Mg/ 2.5 Ml Nebu INH 08/19/24 18:59 0.5 mg Q6HRRT KOTA Administration Levalbuterol HCl 0.63 mg 07/21/24 10:00 07/23/24 06:30 Levalbuterol Rt 0.63 Mg/3 Ml Nebu INH 08/20/24 09:59 0.63 mg Q6HRRT KOTA Administration Levothyroxine Sodium 50 mcg 07/22/24 06:00 07/23/24 05:43 Levothyroxine Sodium 25 Mcg Tablet PO 08/21/24 05:59 50 mcg ACBR KOTA Administration Melatonin 3 mg 07/21/24 00:29 07/21/24 20:37 Melatonin 3 Mg Tablet PO 08/20/24 20:59 3 mg HS PRN Administration SLEEPLESSNESS Metoprolol Succinate 50 mg 07/20/24 21:00 07/22/24 20:43 Metoprolol Succinate Xl 25 Mg Tabcr PO 08/19/24 20:59 50 mg HS KOTA Administration Polyethylene Glycol 17 gm 07/20/24 15:45 07/23/24 08:53 Polyethylene Glycol 17 Gm Packet PO 08/19/24 15:44 Not Given QDAY KOTA Sennosides 1 tab 07/20/24 15:41 Senna Tablet PO 08/19/24 15:40 QDAY PRN CONSTIPATION Protocol Tramadol HCl 50 mg 07/23/24 08:02 Tramadol Hcl 50 Mg Tablet PO 07/26/24 00:25 BID PRN PAIN SCALE 4-6 (Moderate Protocol Plan Assessment and plan Summary: A 67 y/o female patient with significant medical history for ESRD on HD (MWF), DM2, HTN, CAD, Afib on Eliquis, CHF and left renal neoplasm s/p nephrectomy (on 05/14/23) BIBA to ED for shortness of breath, fever . nephrology was consulted due to patient's ESRD. #ESRD on hemodialysis M/W/F # Left Nephrectomy- Renal neoplasm Plan ? Dialysis today as per schedule ? Strict in and out ? Pharmacy to dose medications # Pneumonia # UTI # Hypothyroidism #DM #Afib #CAD// CHF Plan ? Follow-up with the primary team recommendations Thank you for the consultation, please do not hesitate to ask or reach out if you have any question or concerns - Patient's plan and care discussed with my attending, Dr. Audrey Miles MD Internal Medicine PGY-2 Attending Provider Attestation/Addendum patient seen and examined with resident physician Dr. Ray Note reviewed, agree with findings and recommendations. Patient currently seen on dialysis. Tolerating dialysis without any problems. Hemodialysis for 3 hours, 2K, ultrafiltration 2-3 L, Epogen 6000, no heparin ordered. Plan of care discussed with the dialysis nurse. Please see dialysis flowsheet for further details.
[2024-07-23] MEDS: EPOETIN ALFA-EPBX INJ 40,000 UNIT/ML VIAL (ESRD) 10000 UNIT SC (11:39)
--- NOTE | 2024-07-23 12:33 | PC.NURSE ---
Dialysis completed for 3 hrs, tolerated well. A/O x4, no complaint of pain. Respiration even and unlabored sating at 99% on O2 at 2L/min via nc. Able to removed 2000 ml of fluid net. Post tx BP 100/64, HR 88, Temp 96.4. Pressure dressing on left upper arm AV fistula clean/dry/intact. No bleeding noted. Pressure dressing to be remove at 1445.
[2024-07-23 13:18] LABS: Cocci Serology, IgG Negative (Negative)
[2024-07-23 18:57] LABS: Free T4 (Free Thyroxine) 0.51 ng/dL (0.89-1.76); Thyroid Stimulating Hormone 94.97 uIU/mL (0.55-4.78)
[2024-07-23] MEDS: METOPROLOL SUCCINATE XL 25 MG TABCR 50 MG PO (20:34)
[2024-07-23] MEDS: MELATONIN 3 MG TABLET PO (22:29)
[2024-07-24] VITALS (11 sets, daily range): BP systolic 96–145; BP diastolic 63–78; PULSE 44–97; RESP 16–23; TEMP 35.9–36.3; O2SAT 94–100; BMI 30.4
[2024-07-24] MEDS: IPRATROPIUM RT 0.5 MG/ 2.5 ML NEBU INH ×3 (00:40→12:29)
[2024-07-24] MEDS: LEVALBUTEROL RT 0.63 MG/3 ML NEBU INH ×3 (00:40→12:29)
[2024-07-24 05:46] LABS: Basophils # (Auto) 0.1 Thou/mm3 (0.0-0.2); Basophils % (Auto) 1 % (0-2.5); Eosinophils # (Auto) 0.1 Thou/mm3 (0.0-0.5); Eosinophils % (Auto) 2 % (0-10); Hematocrit 31.1 % (36.0-46.0); Hemoglobin 9.7 g/dL (12.0-16.0); Immature Granulocytes % (Auto) 2 % (0-0); Immature Granulocytes Auto 0.08 Thou/mm3 (0.00-0.00); Lymphocytes # (Auto) 1.6 Thou/mm3 (1.0-4.8); Lymphocytes % (Auto) 29 % (10-50); Mean Corpuscular HGB Conc 31.2 g/dl (31.0-37.0); Mean Corpuscular Hemoglobin 30.8 pg (25.0-35.0); Mean Corpuscular Volume 99 fL (80-100); Monocytes # (Auto) 0.4 Thou/mm3 (0.0-0.8); Monocytes % (Auto) 7 % (0-12); Neutrophils # (Auto) 3.2 Thou/mm3 (1.8-7.7); Neutrophils % (Auto) 59 % (37-80); Nucleated Red Blood Cell # 0.02 Thou/mm3 (0.00-0.00); Nucleated Red Blood Cell % 0 /100 WBC (0); Platelet Count 144 Thou/mm3 (140-440); RDW Standard Deviation 57.6 fL (36.4-46.3); Red Blood Count 3.15 Miln/mm3 (4.00-5.20); White Blood Count 5.4 Thou/mm3 (3.6-11.0)
[2024-07-24] MEDS: PIPER/TAZO 2.25 GM 2.25 GM/50 ML BAG IV ×3 (06:11→21:46)
[2024-07-24] MEDS: LEVOTHYROXINE SODIUM 25 MCG TABLET 50 MCG PO (06:12)
[2024-07-24 06:22] LABS: Alanine Aminotransferase 65 U/L (10-49); Albumin/Globulin Ratio 1.4 (1.2-2.2); Alkaline Phosphatase 200 U/L (46-116); Anion Gap 9 (7-16); Aspartate Amino Transferase 65 U/L (0-34); BUN/Creatinine Ratio 7 Ratio (12-20); Bilirubin,Total 0.4 mg/dL (0.3-1.2); Blood Urea Nitrogen 33 mg/dL (9-23); Carbon Dioxide 29.8 mMol/L (20.0-31.0); Chloride 96 mMol/L (98-107); Creatinine (Component) 4.7 mg/dL (0.6-1.3); Estimated Creatinine Clearance 13.9 mL/min (>60); Globulin 2.9 gm/dL (2.3-3.5); Glucose 130 mg/dL (74-106); Magnesium 2.2 mg/dL (1.6-2.6); Osmolality,Calculated 279 (275-295); Potassium 4.4 mMol/L (3.4-5.1); Sodium 135 mMol/L (136-145); Total Protein 6.9 gm/dL (5.7-8.2); eGFR 10 See Note
[2024-07-24] MEDS: APIXABAN 2.5 MG TABLET PO (08:48)
[2024-07-24] MEDS: ASPIRIN EC 81 MG TABEC PO (08:48)
[2024-07-24] MEDS: PANTOPRAZOLE INJ 40 MG VIAL IV (09:11)
--- NOTE | 2024-07-24 09:11 | PD.RESPRO ---
Documentation for date of: 07/24/24 Subjective Subjective Interval history: Ms. Nguyễn is a 68-year-old who is well-known to me with a past medical history significant for hypertension, diabetes mellitus type 2 insulin-dependent, CAD, CHF HFpEF 60-65%, ESRD (MWF), Atrial Fibrillation on Eliquis and history of renal cell carcinoma s/p Left nephrectomy (2022) has been having significant fluid overload and sometimes receiving 4 times weekly dialysis presented to the emergency department with weakness, shortness of breath and high fevers. In the emergency department she was diagnosed with extensive bilateral pneumonia and also severe pulmonary vascular congestion. EKG showed A-fib with RVR. Labs showed WBC 5.2, hemoglobin 12.5, platelets 152. Sodium 132, potassium 3.6, BUN 28, creatinine 4.6, blood sugar 199, calcium 9.6, AST 65, ALT 44, alk phos 201, troponin 0.12, BNP 06/13/1959, albumin 4, TSH 118, Pro-Devon 0.43, urinalysis shows significant amount of blood and 1+ bacteria. Did level 0.4. Hepatitis STUART positive, hep C positive Admitted for pneumonia, acute chf exacerbation, and A-fib RVR, UTI Medication given in the emergency room Lasix 40 mg x 1, nitroglycerin, cefepime, morphine, aspirin 325. Nephrology consultation requested in view of need for dialysis. Patient currently on dialysis 07/22/2024 patient currently seen in telemetry. Still having significant shortness of breath and edema. Patient had a short run of dialysis yesterday. Next dialysis scheduled for tomorrow. Continue with antibiotics. Admitted with pneumonia/CHF exacerbation. 07/23/2024 patient was seen and examined at bedside. Blood pressure still on the soft side 99/65, pulse rate of 91, respiratory rate of 23, O2 saturation 99 on 1 L of oxygen. His hemoglobin is stable at 9.6, WBC 9, sodium show 133, potassium 4.7, serum creatinine 5.3, BUN 36. Urine culture came back positive for ESBL E. coli. Primary team started patient on meropenem. Patient will undergo a session of dialysis today as per his schedule 07/24/2024 Patient was seen and examined at bedside. Vitally patient was stable. However patient reported that she had episodes of rectal bleeding and also she injured her right foot. Primary team was informed about the bleeding that stopped her Eliquis and her aspirin and they put the patient on pantoprazole and consulted GI. Patient today still seems to be mildly overloaded. And her pertinent lab showed Hgb of 9.7 sodium today is 135, potassium 4.4, BUN of 33, creatinine 4.7, glucose 130, with mild elevation of AST and ALT. Patient reported significant cough primary team was informed that we will plan for the patient promethazine. Exam Vital Signs Temp Pulse Resp BP Pulse Ox O2 Del Method O2 Flow Rate 96.7 F L 64 21 H 101/63 97 Nasal Cannula 1 07/24/24 20:00 07/24/24 21:46 07/24/24 20:00 07/24/24 21:46 07/24/24 20:00 07/24/24 20:00 07/24/24 20:00 Objective Labs 07/24/24 04:43 07/24/24 04:43 Labs: Laboratory Results - last 24 hr 07/24/24 04:43 WBC 5.4 RBC 3.15 L Hgb 9.7 L Hct 31.1 L MCV 99 MCH 30.8 MCHC 31.2 RDW Std Deviation 57.6 H Plt Count 144 Neut % (Auto) 59 Lymph % (Auto) 29 [place] % (Auto) 7 Eos % (Auto) 2 Baso % (Auto) 1 Neut # (Auto) 3.2 Lymph # (Auto) 1.6 [place] # (Auto) 0.4 Eos # (Auto) 0.1 Baso # (Auto) 0.1 Immature Gran # (Auto) 0.08 H Absolute Nucleated RBC 0.02 H Immature Gran % 2 H Nucleated RBC % 0 Sodium 135 L Potassium 4.4 Chloride 96 L Carbon Dioxide 29.8 Anion Gap 9 BUN 33 H Creatinine 4.7 H* D Estim Creat Clear Calc 13.9 L eGFR 10 L* BUN/Creatinine Ratio 7 L Glucose 130 H Calculated Osmolality 279 Calcium 9.0 Corrected Calcium 9.0 Phosphorus 5.0 Magnesium 2.2 Total Bilirubin 0.4 AST 65 H ALT 65 H Alkaline Phosphatase 200 H Total Protein 6.9 Albumin 4.0 Globulin 2.9 Albumin/Globulin Ratio 1.4 Quality Measures Quality Measures VTE prophylaxis Advance care planning discussed with:: patient Assessment & Plan Assessment Current Active Medications: Generic Name Dose Route Start Last Admin Trade Name Freq PRN Reason Stop Dose Admin Apixaban 2.5 mg 07/22/24 09:00 07/24/24 08:48 Apixaban 2.5 Mg Tablet PO 08/21/24 08:59 2.5 mg BID KOTA Administration Aspirin 81 mg 07/22/24 09:00 07/24/24 08:48 Aspirin Ec 81 Mg Tabec PO 08/21/24 08:59 81 mg QDAY KOTA Administration Benzonatate 100 mg 07/21/24 11:42 07/23/24 22:29 Benzonatate 100 Mg Capsule PO 08/20/24 11:41 100 mg Q8HR PRN Administration COUGH Protocol Dextrose 25 ml 07/20/24 15:46 Dextrose 50%-Water Inj 50 Ml Syringe IV 08/19/24 15:45 Q15MIN PRN BG 50-70 responsive npo pt Dextrose 50 ml 07/20/24 15:46 07/21/24 07:46 Dextrose 50%-Water Inj 50 Ml Syringe IV 08/19/24 15:45 50 ml Q15MIN PRN Administration BG <50 OR BG <70 & pt unresponsive Glucagon 1 mg 07/20/24 15:46 Glucagon Inj 1 Mg Vial IM Q15MIN PRN BG <70, and no IV access Guaifenesin/Dextromethorphan 1 each 07/20/24 16:08 Guaifenesin/Dm Tablet PO 08/19/24 16:07 Q4HR PRN COUGH Protocol Albumin Human 25 gm in 100 mls @ 100 mls/min 07/20/24 17:18 07/23/24 09:26 Albuminar-25 Ivpb IV 100 mls/min PRN PRN Administration DIALYSIS Piperacillin/Tazobactam/Dextrose 2.25 gm in 50 mls @ 100 mls/hr 07/23/24 06:00 07/24/24 21:46 Zosyn IV 07/30/24 05:59 100 mls/hr Q8HR KOTA Administration Insulin Human Lispro 0 unit 07/20/24 17:00 07/24/24 21:53 Insulin Lispro (Admelog) 1 Unit/0.01 Ml Unit SC 08/19/24 16:59 Not Given ACHS KOTA Protocol Insulin Human Lispro 5 unit 07/20/24 17:00 07/21/24 08:09 Insulin Lispro (Admelog) 1 Unit/0.01 Ml Unit SC 08/19/24 16:59 Not Given ACHS KOTA Ipratropium [place] 0.5 mg 07/20/24 19:00 07/24/24 19:30 Ipratropium Rt 0.5 Mg/ 2.5 Ml Nebu INH 08/19/24 18:59 Not Given Q6HRRT KOTA Levalbuterol HCl 0.63 mg 07/21/24 10:00 07/24/24 19:30 Levalbuterol Rt 0.63 Mg/3 Ml Nebu INH 08/20/24 09:59 Not Given Q6HRRT KOTA Levothyroxine Sodium 50 mcg 07/22/24 06:00 07/24/24 06:12 Levothyroxine Sodium 25 Mcg Tablet PO 08/21/24 05:59 50 mcg ACBR KOTA Administration Melatonin 3 mg 07/21/24 00:29 07/23/24 22:29 Melatonin 3 Mg Tablet PO 08/20/24 20:59 3 mg HS PRN Administration SLEEPLESSNESS Metoprolol Succinate 50 mg 07/20/24 21:00 07/24/24 21:46 Metoprolol Succinate Xl 25 Mg Tabcr PO 08/19/24 20:59 Not Given HS KOTA Pantoprazole Sodium 40 mg 07/24/24 08:55 07/24/24 09:11 Pantoprazole Inj 40 Mg Vial IV 08/23/24 08:54 40 mg QDAY KOTA Administration Polyethylene Glycol 17 gm 07/20/24 15:45 07/24/24 09:02 Polyethylene Glycol 17 Gm Packet PO 08/19/24 15:44 Not Given QDAY KOTA Promethazine HCl/Dextromethorphan 5 ml 07/24/24 10:29 07/24/24 10:38 Promethazine/Dm Syrup 5 Ml Dose PO 08/23/24 10:28 5 ml Q6HR PRN Administration COUGH OR CONGESTION Protocol Sennosides 1 tab 07/20/24 15:41 Senna Tablet PO 08/19/24 15:40 QDAY PRN CONSTIPATION Protocol Tramadol HCl 50 mg 07/23/24 08:02 07/24/24 21:51 Tramadol Hcl 50 Mg Tablet PO 07/26/24 00:25 50 mg BID PRN Administration PAIN SCALE 4-6 (Moderate Protocol Plan Assessment and plan Summary: A 67 y/o female patient with significant medical history for ESRD on HD (MWF), DM2, HTN, CAD, Afib on Eliquis, CHF and left renal neoplasm s/p nephrectomy (on 05/14/23) BIBA to ED for shortness of breath, fever . nephrology was consulted due to patient's ESRD. #ESRD on hemodialysis M/W/F # Left Nephrectomy- Renal neoplasm Plan ? Dialysis tomorrow as per schedule ? Strict in and out ? Pharmacy to dose medications # Pneumonia # UTI # Hypothyroidism #DM #Afib #CAD// CHF Plan ? Follow-up with the primary team recommendations Thank you for the consultation, please do not hesitate to ask or reach out if you have any question or concerns - Patient's plan and care discussed with my attending, Dr. Audrey Miles MD Internal Medicine PGY-2 Attending Provider Attestation/Addendum Seen and examined with resident physician Dr. Ray. Note reviewed, agree with findings and recommendations. Next dialysis scheduled for tomorrow
[2024-07-24] MEDS: PROMETHAZINE/DM SYRUP 5 ML DOSE PO (10:38)
[2024-07-24] MEDS: NA SU/NAHCO3/KC/PEG (Golytely) 4,000 ML BTL 4000 ML PO (10:39)
--- NOTE | 2024-07-24 10:44 | ESPR_ITS ---
<Statement entered by Brandon Montero MD - 07/24/24 13:52> Patient was seen and examined at the bedside this morning. Patient had episode of bloody bowel movement yesterday and today as well. Morning vitals were stable hemoglobin was also stable. We held aspirin and Eliquis and ordered Protonix. FOBT was positive. We ordered GI consultation for further evaluation and ordered GoLytely prep for colonoscopy once patient is cleared. Truck Sales Manager is following the case for dialysis. Currently on clear liquid diet. Of note, patient was found to be positive for hepatitis A and will be kept on contact precautions as hepatitis A is contagious for 14 days. SNF was notified as well as social services manager. Insurance authorization for PT is also pending. Promethazine added for cough. All labs and orders were reviewed. I saw and examined the patient, and I agree with current management stated by Dr Brittney LEWIS,PGY1. Plan of care was discussed with the attending physician and resident physician. Disclaimer: Despite multiple revisions, due to the dictation software being used, the document bellow may not be free of grammatical errors including phonetic/typographic errors. However, this does not deter from our commitment to providing health care in the patient's best interest in mind. Dr. Winston MD, PGY 2 Documentation for date of: 07/24/24 Subjective Subjective Interval history: Patient is a 68-year-old female with a past medical history of hypertension, diabetes mellitus type 2 insulin-dependent, CAD, CHF HFpEF 60-65%, ESRD (MWF), Atrial Fibrillation on Eliquis and history of renal cell carcinoma s/p Left nephrectomy (2022) who was admitted for pneumonia, acute chf exacerbation and a fib w/ rvr. No overnight events reported for patient. Pedro reported small injury to her large toe overnight. Patient examined at bedside. Patient reported 1 episode of soft stool and mild epigastric pain. Positive FOBT documented. Consulted GI-->started Golytle prep. US liver added. Exam Vital Signs Temp Pulse Resp BP Pulse Ox O2 Del Method O2 Flow Rate 96.6 F L 84 22 H 108/65 99 Nasal Cannula 1 07/24/24 08:00 07/24/24 08:00 07/24/24 08:00 07/24/24 08:00 07/24/24 08:00 07/24/24 08:00 07/24/24 08:00 Narrative Exam General Appearance: Alert & Oriented X3, well-nourished female who is lying in bed in mild discomfort secondary to cough. HEENT: Skull symmetrical and atraumatic. Conjunctivae pale pink and moist. Pupils equal, round, reactive to light and accommodation (PERRL). External ear without lesion or discharge. Straight, nares patient, mucosa pink, no discharge. Cardio: Normal Rate and Rhythm with S1 and S2 heart sounds. No murmurs or extra heart sounds auscultated. No bruits on carotid auscultation. 3+ Lungs: Symmetric with good expansion. Chest and back non-tender. Breath sounds vesicular decreased with mild rhonchi. Abdomen: Non-tender, Non-distended, Normal Reactive Bowel Sounds Neuro: Alert, cooperative, oriented to person, place, and time. Speech clear. CN grossly intact. Upper motor strength 5/5 and Lower motor strength 5/5. Sensation intact. Objective Labs 07/24/24 04:43 07/24/24 04:43 Labs: Laboratory Results - last 24 hr 07/20/24 07/23/24 07/24/24 15:48 05:51 04:43 WBC 5.4 RBC 3.15 L Hgb 9.7 L Hct 31.1 L MCV 99 MCH 30.8 MCHC 31.2 RDW Std Deviation 57.6 H Plt Count 144 Neut % (Auto) 59 Lymph % (Auto) 29 [place] % (Auto) 7 Eos % (Auto) 2 Baso % (Auto) 1 Neut # (Auto) 3.2 Lymph # (Auto) 1.6 [place] # (Auto) 0.4 Eos # (Auto) 0.1 Baso # (Auto) 0.1 Immature Gran # (Auto) 0.08 H Absolute Nucleated RBC 0.02 H Immature Gran % 2 H Nucleated RBC % 0 Sodium 135 L Potassium 4.4 Chloride 96 L Carbon Dioxide 29.8 Anion Gap 9 BUN 33 H Creatinine 4.7 H* D Estim Creat Clear Calc 13.9 L eGFR 10 L* BUN/Creatinine Ratio 7 L Glucose 130 H Calculated Osmolality 279 Calcium 9.0 Corrected Calcium 9.0 Phosphorus 5.0 Magnesium 2.2 Total Bilirubin 0.4 AST 65 H ALT 65 H Alkaline Phosphatase 200 H Total Protein 6.9 Albumin 4.0 Globulin 2.9 Albumin/Globulin Ratio 1.4 TSH 94.97 H* D Free T4 0.51 L Coccidioides IgG Ab Negative Quality Measures Quality Measures VTE prophylaxis Advance care planning discussed with:: other Assessment & Plan Assessment Current Active Medications: Generic Name Dose Route Start Last Admin Trade Name Freq PRN Reason Stop Dose Admin Apixaban 2.5 mg 07/22/24 09:00 07/24/24 08:48 Apixaban 2.5 Mg Tablet PO 08/21/24 08:59 2.5 mg BID KOTA Administration Aspirin 81 mg 07/22/24 09:00 07/24/24 08:48 Aspirin Ec 81 Mg Tabec PO 08/21/24 08:59 81 mg QDAY KOTA Administration Benzonatate 100 mg 07/21/24 11:42 07/23/24 22:29 Benzonatate 100 Mg Capsule PO 08/20/24 11:41 100 mg Q8HR PRN Administration COUGH Protocol Dextrose 25 ml 07/20/24 15:46 Dextrose 50%-Water Inj 50 Ml Syringe IV 08/19/24 15:45 Q15MIN PRN BG 50-70 responsive npo pt Dextrose 50 ml 07/20/24 15:46 07/21/24 07:46 Dextrose 50%-Water Inj 50 Ml Syringe IV 08/19/24 15:45 50 ml Q15MIN PRN Administration BG <50 OR BG <70 & pt unresponsive Glucagon 1 mg 07/20/24 15:46 Glucagon Inj 1 Mg Vial IM Q15MIN PRN BG <70, and no IV access Guaifenesin/Dextromethorphan 1 each 07/20/24 16:08 Guaifenesin/Dm Tablet PO 08/19/24 16:07 Q4HR PRN COUGH Protocol Albumin Human 25 gm in 100 mls @ 100 mls/min 07/20/24 17:18 07/23/24 09:26 Albuminar-25 Ivpb IV 100 mls/min PRN PRN Administration DIALYSIS Piperacillin/Tazobactam/Dextrose 2.25 gm in 50 mls @ 100 mls/hr 07/23/24 06:00 07/24/24 06:11 Zosyn IV 07/30/24 05:59 100 mls/hr Q8HR KOTA Administration Insulin Human Lispro 0 unit 07/20/24 17:00 07/24/24 07:42 Insulin Lispro (Admelog) 1 Unit/0.01 Ml Unit SC 08/19/24 16:59 Not Given ACHS KOTA Protocol Insulin Human Lispro 5 unit 07/20/24 17:00 07/21/24 08:09 Insulin Lispro (Admelog) 1 Unit/0.01 Ml Unit SC 08/19/24 16:59 Not Given ACHS KOTA Ipratropium [place] 0.5 mg 07/20/24 19:00 07/24/24 06:51 Ipratropium Rt 0.5 Mg/ 2.5 Ml Nebu INH 08/19/24 18:59 0.5 mg Q6HRRT KOTA Administration Levalbuterol HCl 0.63 mg 07/21/24 10:00 07/24/24 06:52 Levalbuterol Rt 0.63 Mg/3 Ml Nebu INH 08/20/24 09:59 0.63 mg Q6HRRT KOTA Administration Levothyroxine Sodium 50 mcg 07/22/24 06:00 07/24/24 06:12 Levothyroxine Sodium 25 Mcg Tablet PO 08/21/24 05:59 50 mcg ACBR KOTA Administration Melatonin 3 mg 07/21/24 00:29 07/23/24 22:29 Melatonin 3 Mg Tablet PO 08/20/24 20:59 3 mg HS PRN Administration SLEEPLESSNESS Metoprolol Succinate 50 mg 07/20/24 21:00 07/23/24 20:34 Metoprolol Succinate Xl 25 Mg Tabcr PO 08/19/24 20:59 50 mg HS KOTA Administration Pantoprazole Sodium 40 mg 07/24/24 08:55 07/24/24 09:11 Pantoprazole Inj 40 Mg Vial IV 08/23/24 08:54 40 mg QDAY KOTA Administration Polyethylene Glycol 17 gm 07/20/24 15:45 07/24/24 09:02 Polyethylene Glycol 17 Gm Packet PO 08/19/24 15:44 Not Given QDAY KOTA Promethazine HCl/Dextromethorphan 5 ml 07/24/24 10:29 07/24/24 10:38 Promethazine/Dm Syrup 5 Ml Dose PO 08/23/24 10:28 5 ml Q6HR PRN Administration COUGH OR CONGESTION Protocol Sennosides 1 tab 07/20/24 15:41 Senna Tablet PO 08/19/24 15:40 QDAY PRN CONSTIPATION Protocol Tramadol HCl 50 mg 07/23/24 08:02 07/23/24 22:29 Tramadol Hcl 50 Mg Tablet PO 07/26/24 00:25 50 mg BID PRN Administration PAIN SCALE 4-6 (Moderate Protocol Plan Patient is a 68-year-old female with a past medical history of hypertension, diabetes mellitus type 2 insulin-dependent, CAD, CHF HFpEF 60-65%, ESRD (MWF), Atrial Fibrillation on Eliquis and history of renal cell carcinoma s/p Left nephrectomy (2022) who was admitted on who was admitted for acute chf exacerbation, pneumonia, and Atrial Fibrilation w/ RVR. # Elevated transaminitis, secondary hepatitis A and C+ #Lower GI bleed #Anemia normocytic Plan for colonoscopy for lower GI bleed recorded positive FOBT. Given hepatitis A, likely contributing to lower GI bleed possible soft bowel movements reported by patient in the morning. Malignancy cannot be ruled out versus diverticulitis. Plan GoLytely GI consult Clear liquid diets Update SNF, social services manager. #Community-acquired Pneumonia likely GPC Patient presented with increased cough for the past 3 weeks that has been productive. Likely send secondary to viral superimposed bacteria given bilateral component. Likely gram-positive cocci suggest strep pneumoniae. Cocci less likely. PE cannot be ruled out as wells criteria 6 points (16% of PE in the ED). Venous U/S of Lower extremity Negative. NC less likely given no st elevation on EKG but troponins are slighlty elevated at 0.12. Following. No chest pain. COVID flu negative. MRSA negative 07/21/2024 Gram Stain: Epithelial Cells, WBC 1. no organisms seen. Sputum Culture Pending. Plan Ceftriaxone 1 g (07/20/2024)--Zosyn 07/23/2024 for dull coverage of UTI ESBL Azithromycin 500 daily x3 days, completed Chest physio Cough syrup CBC CMP #Atrial Fibrillation #Atrial fibrillation with RVR, resolved. Patient has a past medical history of atrial fibrillation. Home medication of amiodarone 400 twice daily and digoxin 125 mcg daily. Currently holding amiodarone twice daily given elevated TSH as it can cause hyper or hypothyroidism. Pending digoxin levels. Pending final recommendations from cardiology. Second EKG ordered, to confirm A-fib with RVR. RVR likely triggered by pneumonia, CHF exacerbation and lack of dialysis completion. Plan Hold Amiodarone and Digoxin Continue Metoprolol Succinate 50 mg HS If metoprolol fails, consider starting Digoxin 0.125 mg then continue every other day Cardiology Consulted, Dr. Ring, appreciate recommendations. #Acute CHF exacerbation #HFpEF 60 to 65% #Acute Hypoxic Respirtory Failure, resolved #Elevated troponins Has a past medical history of CHF. No Lasix noted for patient. Preserved ejection fraction of 55 to 60% on 03/18/2023. Pulmonary pressure noted 31 mmHg. Pending new echo. Lasix 40 mg x 1 IV push given. Patient patient scheduled for dialysis today, reevaluate tomorrow's fluid status. Patient still produces some urine. Positive Orthopnea. Positive Paroxsymal Orthopnea. Requires several pillows to sleep. Wheelchair bound. Lower Pedal edema noted. Lower extremeity wound noted. BNP 1261. Prominent vascular congestion. NYHA Class: IV Cardiology recommended working towards GDMT outpatient due to soft BP. Patient successfully weaned off O2. Plan: -Metoprolol Succinate 50 HS -K>4 and Mg >2, caution-patient is dialysis. Monitor closely. -Fluid Restriction and Sodium Restriction 2 g per day -Daily Weights, Strict Ins and Outs, Fluid Striction (1800 ml), Sodium Restriction 2 grams per day -wound care -Cardiology Consult, appreciate recommendations. Hypothyroidism Patient presented with a TSH level of 118.25 and a T4 of 0.46 and 1.7 T3. Levothyroxine started 25 mcg p.o. before meals. Medication induced versus euthyroidism versus myxedema coma (less likely). Second TSH 87.56 on 07/21/2024. Plan Levothyroxine 50 mcg p.o. before meals #ESRD (Tuesday Patient has a past medical history of dialysis likely secondary to nephrectomy from renal cell carcinoma (2022). Patient did not complete dialysis today. Inpatient dialysis on 07/20/2024, Dr. Ventura consulted. 07/20/2024-Net removal 2 UF; 07/21/2024 1.4 UF; 07/23/2024 2UF Plan Dialysis as per patient's home schedule Renally dose medication Avoid nephrotoxins Phosphorus improved Follow-up with phosphate consider restarting the Sevelamer, based on nephrology recommendations Consult Nephrology, Appreciate Recommendations, Dr. Ventura #Diabetes mellitus type 2 insulin-dependent #Hypoglycemic episode, resolved. Past medical history of diabetes mellitus with Lantus 40 units daily. Previous A1c on 04/07/2023 showed 5%. Glucose on admission 199. Patient experienced a hypoglycemic episode this morning despite having home Lantus reduced by 50% on admission. Stopped Lantus. Stopped scheduled Lispro. Keep sliding scale on. Average glucose 128 and A1c 6.1 Plan Sliding scale ACHS Bedside sugar checks Q6hrs Diet carbohydrate consistent low #Urinary tract infection, complicated Patient presented with a positive UA showing positive esterase, positive WBCs and +1 bacteria. Past medical history of UTIs. Dysuria positive. Negative for suprapubic tenderness. Culture positive for ESBL, patient symptomatic with burning urination Plan -Zosyn 07/23/2024 #Hyperlipidemia #CAD Home medication atorvastatin. Currently holding Lipid Cholesterol 69 L, LDL 24, HDL 34; unable to calculate ASCVD given low cholesterol Plan Follow AST's ALT's Consider restarting Atorvastatin on discharge. Holding Atorvastatin #Hypertension Home medication of metoprolol tartrate 25 mg BID as home medication Plan -Metoprolol Tartrate 25 mg BID D/C -Metoprolol Succinate 50 mg PO HS-->BP & CHF GDMT Health Maintenance: Disp: Telemetry FEN: carb consistent low, fluid restricted 1500, and 2 gram sodium DVT: Eliquis on hold given lower GI Bleed. Code: Full code Attending Provider Attestation/Addendum I have discussed and was present for the essential components of the history, physical examination, diagnosis, and treatment plan with the resident. I agree with the patient's care as documented by the resident and amended herein by me. Gary Dennis DO. Patient seen and evaluated this AM. Vital signs stable, patient afebrile overnight. Patient did have an episode of hematochezia, FOBT also positive, hep a positive. Significant labs include a stable hemoglobin 9.7. Today will continue Augmentin for ESBL E. coli UTI, metoprolol XL 50 mg daily per cardiology recommendations will also consult gastroenterology for possible colonoscopy for LGIB. Continue to monitor closely while she is here. Although this document has been carefully reviewed, there may still be some phonetic and other typographical errors. These errors are purely grammatical due to imperfections in the software program and should not be construed in any way to compromise the substance of the patient's medical care during this visit.
[2024-07-24] MEDS: INSULIN LISPRO (AdmeLOG) 1 UNIT/0.01 ML UNIT SC (11:42)
--- NOTE | 2024-07-24 13:27 | PD.RESPRO ---
Documentation for date of: 07/24/24 Subjective Subjective Interval history: 07/24/2024: Patient examined at bedside. No overnight events on telemetry, rate controlled in the 80s to 90s still in A-fib. Patient reports she is doing well and will be continued to do dialysis. Patient is is doing well, rate controlled with metoprolol 50 XL, still taking Eliquis 2.5. There was concern for GI bleed her hemoglobin is 9.7 which seems to be around her baseline, however she had dark stools and GI was consulted, patient is on GoLytely prep. Exam Vital Signs Temp Pulse Resp BP Pulse Ox O2 Del Method O2 Flow Rate 96.6 F L 88 23 H 120/73 100 Nasal Cannula 1 07/24/24 12:00 07/24/24 12:31 07/24/24 12:31 07/24/24 12:00 07/24/24 12:31 07/24/24 12:00 07/24/24 12:31 Narrative Exam General: AAOx3, NAD, Lying in bed when examined, pleasant obese woman HEENT: Moist mucous membranes, conjunctiva clear, EOMI, PERRLA, poor dentition (does not wear dentures) Cardiovascular: S1, S2, radial pulses +2 bilat, RRR Pulmonary: Crackles heard diffusely in lung anderson L lower lobe GI: No tenderness to light or deep palpitation, no guarding, rigidity, rebound tenderness or distension Extremities: Pitting edema +2 bilat in LE Neuro: AAOx3, no focal motor or sensory deficits in the UE or LE bilat Psych: Cooperative Objective Labs 07/24/24 04:43 07/24/24 04:43 Labs: Laboratory Results - last 24 hr 07/23/24 07/24/24 05:51 04:43 WBC 5.4 RBC 3.15 L Hgb 9.7 L Hct 31.1 L MCV 99 MCH 30.8 MCHC 31.2 RDW Std Deviation 57.6 H Plt Count 144 Neut % (Auto) 59 Lymph % (Auto) 29 [place] % (Auto) 7 Eos % (Auto) 2 Baso % (Auto) 1 Neut # (Auto) 3.2 Lymph # (Auto) 1.6 [place] # (Auto) 0.4 Eos # (Auto) 0.1 Baso # (Auto) 0.1 Immature Gran # (Auto) 0.08 H Absolute Nucleated RBC 0.02 H Immature Gran % 2 H Nucleated RBC % 0 Sodium 135 L Potassium 4.4 Chloride 96 L Carbon Dioxide 29.8 Anion Gap 9 BUN 33 H Creatinine 4.7 H* D Estim Creat Clear Calc 13.9 L eGFR 10 L* BUN/Creatinine Ratio 7 L Glucose 130 H Calculated Osmolality 279 Calcium 9.0 Corrected Calcium 9.0 Phosphorus 5.0 Magnesium 2.2 Total Bilirubin 0.4 AST 65 H ALT 65 H Alkaline Phosphatase 200 H Total Protein 6.9 Albumin 4.0 Globulin 2.9 Albumin/Globulin Ratio 1.4 TSH 94.97 H* D Free T4 0.51 L Quality Measures Quality Measures VTE prophylaxis Advance care planning discussed with:: patient Assessment & Plan Assessment Current Active Medications: Generic Name Dose Route Start Last Admin Trade Name Freq PRN Reason Stop Dose Admin Apixaban 2.5 mg 07/22/24 09:00 07/24/24 08:48 Apixaban 2.5 Mg Tablet PO 08/21/24 08:59 2.5 mg BID KOTA Administration Aspirin 81 mg 07/22/24 09:00 07/24/24 08:48 Aspirin Ec 81 Mg Tabec PO 08/21/24 08:59 81 mg QDAY KOTA Administration Benzonatate 100 mg 07/21/24 11:42 07/23/24 22:29 Benzonatate 100 Mg Capsule PO 08/20/24 11:41 100 mg Q8HR PRN Administration COUGH Protocol Dextrose 25 ml 07/20/24 15:46 Dextrose 50%-Water Inj 50 Ml Syringe IV 08/19/24 15:45 Q15MIN PRN BG 50-70 responsive npo pt Dextrose 50 ml 07/20/24 15:46 07/21/24 07:46 Dextrose 50%-Water Inj 50 Ml Syringe IV 08/19/24 15:45 50 ml Q15MIN PRN Administration BG <50 OR BG <70 & pt unresponsive Glucagon 1 mg 07/20/24 15:46 Glucagon Inj 1 Mg Vial IM Q15MIN PRN BG <70, and no IV access Guaifenesin/Dextromethorphan 1 each 07/20/24 16:08 Guaifenesin/Dm Tablet PO 08/19/24 16:07 Q4HR PRN COUGH Protocol Albumin Human 25 gm in 100 mls @ 100 mls/min 07/20/24 17:18 07/23/24 09:26 Albuminar-25 Ivpb IV 100 mls/min PRN PRN Administration DIALYSIS Piperacillin/Tazobactam/Dextrose 2.25 gm in 50 mls @ 100 mls/hr 07/23/24 06:00 07/24/24 06:11 Zosyn IV 07/30/24 05:59 100 mls/hr Q8HR KOTA Administration Insulin Human Lispro 0 unit 07/20/24 17:00 07/24/24 11:42 Insulin Lispro (Admelog) 1 Unit/0.01 Ml Unit SC 08/19/24 16:59 3 unit ACHS KOTA Administration Protocol Insulin Human Lispro 5 unit 07/20/24 17:00 07/21/24 08:09 Insulin Lispro (Admelog) 1 Unit/0.01 Ml Unit SC 08/19/24 16:59 Not Given ACHS KOTA Ipratropium [place] 0.5 mg 07/20/24 19:00 07/24/24 12:29 Ipratropium Rt 0.5 Mg/ 2.5 Ml Nebu INH 08/19/24 18:59 0.5 mg Q6HRRT KOTA Administration Levalbuterol HCl 0.63 mg 07/21/24 10:00 07/24/24 12:29 Levalbuterol Rt 0.63 Mg/3 Ml Nebu INH 08/20/24 09:59 0.63 mg Q6HRRT KOTA Administration Levothyroxine Sodium 50 mcg 07/22/24 06:00 07/24/24 06:12 Levothyroxine Sodium 25 Mcg Tablet PO 08/21/24 05:59 50 mcg ACBR KOTA Administration Melatonin 3 mg 07/21/24 00:29 07/23/24 22:29 Melatonin 3 Mg Tablet PO 08/20/24 20:59 3 mg HS PRN Administration SLEEPLESSNESS Metoprolol Succinate 50 mg 07/20/24 21:00 07/23/24 20:34 Metoprolol Succinate Xl 25 Mg Tabcr PO 08/19/24 20:59 50 mg HS KOTA Administration Pantoprazole Sodium 40 mg 07/24/24 08:55 07/24/24 09:11 Pantoprazole Inj 40 Mg Vial IV 08/23/24 08:54 40 mg QDAY KOTA Administration Polyethylene Glycol 17 gm 07/20/24 15:45 07/24/24 09:02 Polyethylene Glycol 17 Gm Packet PO 08/19/24 15:44 Not Given QDAY KOTA Promethazine HCl/Dextromethorphan 5 ml 07/24/24 10:29 07/24/24 10:38 Promethazine/Dm Syrup 5 Ml Dose PO 08/23/24 10:28 5 ml Q6HR PRN Administration COUGH OR CONGESTION Protocol Sennosides 1 tab 07/20/24 15:41 Senna Tablet PO 08/19/24 15:40 QDAY PRN CONSTIPATION Protocol Tramadol HCl 50 mg 07/23/24 08:02 07/23/24 22:29 Tramadol Hcl 50 Mg Tablet PO 07/26/24 00:25 50 mg BID PRN Administration PAIN SCALE 4-6 (Moderate Protocol Plan Assessment Zina is a 67 y/o female from custodial with a past medical history of DM type II, HTN, ESRD on HD MWF, CAD, CHF, atrial fibrillation on Eliquis, left renal neoplasm s/p nephrectomy who is admitted for Afib w/RVR. #A-fib with RVR #History of cardiac arrest #Hypotension CHADVASC score: 5 points, 7.2% stroke risk per year HAS-BLED score: 4 points Pt is rate controlled at this time and on Eliquis, rate 90s-100s still in afib Concern for thyroid issues due to [facility] [facility] use, will continue with beta patti and titrate doses as needed Patient can be given midodrine 2.5 to 5 mg 15 to 30 minutes prior dialysis sessions if she goes hypotensive Patient had previous cardiac arrest in 2019 upon chart records, however not much information to be extrapolated from chart review Plan: ?Continue Metoprolol 50 XL, hold if blood pressure is permissible ?If the patient goes into A-fib with RVR and blood pressure is low then we can start digoxin at 125 mcg every other day and monitor the levels in 7 days to adjust digoxin dosage. Patient potassium level should be carefully monitored for any hypokalemia and hyperkalemia as it can cause dig toxicity which patient did have previously as per the chart review and hence recommend to hold digoxin for now as rate is controlled. ?Continue Eliquis 5 mg twice daily ?Keep potassium and magnesium above 4 and 2 respectively #History of CAD #History of chronic HFrEF with systolic dysfunction and dilated left ventricle and wall motion abnormalities #Trace pericardial effusion #Elevated troponins, NSTEMI type II, resolved Echo shows dilated left ventricle with mild global hypokinesis and moderate systolic dysfunction 35 to 40% for EF. She also has right ventricle systolic pressure of 62 and severe MAC, pleural effusion present in trace pericardial effusion. Plan: ?Continue with aspirin ?Continue with GDMT therapy as able, on metoprolol 50 XL at this point #History of type 2 diabetes #History of hypertension A1c 6.1 Plan: ? Resume home medicines when able #ESRD, on HD Tuesday #hx of L nephroectomy #Lower extremity edema Likely related due to patient not getting enough dialysis Dr. Fields sees pt, says she goes for diaylsis 4x a week Plan: ? Nephrology on consult, appreciate recs #Hypothyroidism TSH ~110, Free T4 0.46; Recheck shows TSH ~80s No hx of hypothyroidism in the past Pt's BP could be low because of this as well Hypothyroidism from jail [place], Will not resume Plan: ? Continue with levothyroxine 50 mcg daily. Patient seen and care discussed with my attending physician, Dr. Octavia Mcmahon, PGY-1 Attending Provider Attestation/Addendum I have personally seen and examined the patient separately on the above date of service and discussed the plan of care with the resident. I reviewed the resident Dr. Steiner consultation progress note and agree with the resident findings and plan in the note above and have also edited the documentation to reflect my findings and plan. Orestes Dudley M.D. Interventional Cardiology
--- NOTE | 2024-07-24 14:54 | PC.SS ---
HYACINTH contacted Floridalma from [facility] to check status on authorization. Floridalma reported she contacted patient's insurance and at the time auth was still pending.
--- NOTE | 2024-07-24 16:34 | XR_ITS ---
Examination: Abdomen sonogram, Limited Date and time of exam: July 24, 2024 1928 hrs. Indications: Elevated liver function tests on laboratory examination today, upper abdominal pain one year Technique: Real-time daniel scale transabdominal sonographic images of the upper abdomen obtained. Findings: Absent gallbladder Normal common bile duct 0.3 cm Pancreatic head 2.1 cm Liver 14.48 cm lobular contour fatty infiltration no focal liver lesions Normal hepatopedal portal venous flow Patent IVC Impression: Absent gallbladder Normal common bile duct Liver normal size suspect primary hepatocellular disease
--- NOTE | 2024-07-24 19:52 | PD.IMCONS ---
HPI Data of Consult Requesting Physician: Anselmo Dennis DO Primary Care Provider: Lorraine Ventura MD Consult Narrative Reason for consult: Rectal bleeding FOBT positive posthemorrhagic anemia History of present illness: 68-year-old female being evaluated at the request of the internal medicine team for episode of rectal bleeding as well as Hemoccult positive stool On 07/20/2023 patient's hemoglobin hematocrit 12.5 and 39.8 It has dropped down to 9.7 and 31.1 with a platelet count of 151,000 Patient had an episode of rectal bleeding and was found to be FOBT positive cc:: cc: Anselmo Dennis DO Review of Systems Review of Systems Systems Reviewed: All systems reviewed, normal except as documented Past Medical History Surgical History OTHER SURGICAL HX: End-stage renal disease on hemodialysis MWF Diabetes mellitus type 2 Essential hypertension Coronary artery disease Congestive heart failure A-fib RVR rate controlled Renal cell carcinoma status post left nephrectomy Meds Home Medications and Allergies Home Medications ?Medication ?Instructions ?Recorded ?Confirmed ?Type blood sugar diagnostic (True 10/26/19 04/21/23 History Metrix Glucose Test Strip) pen needle, diabetic 29 gauge x 10/26/19 04/21/23 History 1/2 (BD Ultra-Fine Original Pen Needle) bisacodyl 10 mg rectal suppository 10 mg WV Q72H PRN Constipation 02/27/20 05/25/23 History (Dulcolax (bisacodyl)) magnesium hydroxide 400 mg/5 mL 30 ml PO Q72H PRN Constipation 02/27/20 05/25/23 History oral suspension (Milk of Magnesia) sodium phosphates 19 gram-7 118 ml WV Q72H PRN Constipation 02/27/20 05/25/23 History gram/118 mL enema (Fleet Enema) linagliptin 5 mg tablet (Tradjenta) 5 mg PO QDAY 04/21/20 05/25/23 History aspirin 81 mg tablet,delayed 81 mg PO QDAY 08/19/21 04/21/23 History release ferrous sulfate 325 mg (65 mg 325 mg PO TID 08/19/21 05/25/23 History iron) tablet (FeroSul) loratadine 10 mg tablet 10 mg PO QDAY 08/19/21 04/21/23 History magnesium oxide 400 mg PO TID 08/19/21 04/21/23 History melatonin 3 mg tablet 3 mg PO HS PRN Insomnia 08/19/21 07/21/24 History mirtazapine 15 mg tablet (Remeron) 7.5 mg PO HS 08/19/21 04/21/23 History acetaminophen 325 mg tablet 650 mg PO [id number] PRN Pain (Scale 04/21/22 05/25/23 History (Tylenol) Score 1-3) amino acids-protein hydrolysate 15 1 ea TIDWM 04/21/22 05/25/23 History gram-100 kcal/30 mL oral liquid pkt atorvastatin 40 mg tablet 40 mg PO HS 04/21/22 05/25/23 History sevelamer HCl 800 mg tablet 1,600 mg PO TIDWM 04/21/22 07/21/24 History diphenhydramine HCl 25 mg tablet 25 mg PO Q8HR PRN Itching 05/25/23 05/25/23 History (Benadryl Allergy) docusate sodium 250 mg capsule 250 mg PO DAILY PRN Constipation 05/25/23 07/21/24 History glucagon 1 mg solution for 1 mg subcut 05/25/23 History injection (Glucagon Emergency Kit) ondansetron HCl 4 mg tablet 4 mg PO Q6H PRN Nausea And Vomiting 05/25/23 05/25/23 History tramadol 50 mg tablet 50 mg PO Q6H PRN Pain (Scale Score 05/25/23 07/21/24 History 4-6) digoxin 125 mcg (0.125 mg) tablet 125 mcg PO QDAY 07/21/24 07/21/24 History Allergies Allergy/AdvReac Type Severity Reaction Status Date / Time adhesive Allergy Mild Redness of Verified 07/20/24 12:00 Skin adhesive tape Allergy Mild Redness of Verified 07/20/24 12:00 Skin Exam Vital Signs Temp Pulse Resp BP Pulse Ox O2 Del Method O2 Flow Rate 96.7 F L 81 22 H 99/78 99 Nasal Cannula 1 07/24/24 16:00 07/24/24 16:00 07/24/24 16:00 07/24/24 16:00 07/24/24 16:00 07/24/24 16:00 07/24/24 16:00 Constitutional Comments: Chronically ill-appearing Routine Respiratory Exam Comments: Decreased breath sounds at the bases Routine Abdominal Exam Comments: Soft nontender positive bowel sounds Results Labs 07/24/24 04:43 07/24/24 04:43 Labs: Short CBC 07/24/24 Range/Units 04:43 WBC 5.4 (3.6-11.0) Thou/mm3 Hgb 9.7 L (12.0-16.0) g/dL Hct 31.1 L (36.0-46.0) % Plt Count 144 (140-440) Thou/mm3 BMP 07/24/24 04:43 Sodium 135 L Potassium 4.4 Chloride 96 L Carbon Dioxide 29.8 BUN 33 H Creatinine 4.7 H* D Glucose 130 H Calcium 9.0 Liver Function 07/24/24 Range/Units 04:43 Total Bilirubin 0.4 (0.3-1.2) mg/dL AST 65 H (0-34) U/L ALT 65 H (10-49) U/L Alkaline Phosphatase 200 H (46-116) U/L Albumin 4.0 (3.4-4.8) gm/dL Assessment and Plan Additional Assessment & Plan Additional Plan: # Rectal bleeding # FOBT positive # Posthemorrhagic anemia Plan Clear liquid diet GoLytely prep Consent obtained for fiberoptic colonoscopy with possible biopsy possible therapeutic intervention under intravenous moderate sedation Other medical problems include # End-stage renal disease on hemodialysis MWF # Atrial fibrillation rate controlled on Eliquis # Coronary artery disease stable angina # Systolic congestive heart failure # Diabetes mellitus type 2 # Essential hypertension # Renal cell carcinoma status post left nephrectomy Thank you once again for the opportunity to participate in the care of this patient
[2024-07-24] MEDS: traMADol HCL 50 MG TABLET PO (21:51)
[2024-07-25] VITALS (28 sets, daily range): BP systolic 105–141; BP diastolic 51–94; PULSE 68–135; RESP 17–25; TEMP 35.8–36.8; O2SAT 94–100; BMI 30.4
[2024-07-25] MEDS: IPRATROPIUM RT 0.5 MG/ 2.5 ML NEBU INH ×3 (00:13→19:22)
[2024-07-25] MEDS: LEVALBUTEROL RT 0.63 MG/3 ML NEBU INH ×3 (00:13→19:22)
[2024-07-25 05:29] LABS: Basophils # (Auto) 0.1 Thou/mm3 (0.0-0.2); Basophils % (Auto) 1 % (0-2.5); Eosinophils # (Auto) 0.1 Thou/mm3 (0.0-0.5); Eosinophils % (Auto) 3 % (0-10); Hematocrit 30.5 % (36.0-46.0); Hemoglobin 9.8 g/dL (12.0-16.0); Immature Granulocytes % (Auto) 1 % (0-0); Immature Granulocytes Auto 0.04 Thou/mm3 (0.00-0.00); Lymphocytes # (Auto) 1.4 Thou/mm3 (1.0-4.8); Lymphocytes % (Auto) 27 % (10-50); Mean Corpuscular HGB Conc 32.1 g/dl (31.0-37.0); Mean Corpuscular Hemoglobin 30.7 pg (25.0-35.0); Mean Corpuscular Volume 96 fL (80-100); Monocytes # (Auto) 0.4 Thou/mm3 (0.0-0.8); Monocytes % (Auto) 8 % (0-12); Neutrophils % (Auto) 60 % (37-80); Nucleated Red Blood Cell % 0 /100 WBC (0); Platelet Count 158 Thou/mm3 (140-440); RDW Standard Deviation 54.6 fL (36.4-46.3); Red Blood Count 3.19 Miln/mm3 (4.00-5.20)
[2024-07-25] MEDS: LEVOTHYROXINE SODIUM 25 MCG TABLET 50 MCG PO (05:37)
[2024-07-25] MEDS: PIPER/TAZO 2.25 GM 2.25 GM/50 ML BAG IV ×3 (05:38→22:28)
[2024-07-25 06:26] LABS: Alanine Aminotransferase 74 U/L (10-49); Albumin, Serum 3.7 gm/dL (3.4-4.8); Albumin/Globulin Ratio 1.3 (1.2-2.2); Alkaline Phosphatase 182 U/L (46-116); Anion Gap 12 (7-16); Aspartate Amino Transferase 75 U/L (0-34); BUN/Creatinine Ratio 7 Ratio (12-20); Bilirubin,Total 0.4 mg/dL (0.3-1.2); Blood Urea Nitrogen 35 mg/dL (9-23); Calcium 9.3 mg/dL (8.3-10.6); Calcium (Corrected) 9.5 mg/dL (8.5-10.1); Carbon Dioxide 27.1 mMol/L (20.0-31.0); Chloride 94 mMol/L (98-107); Creatinine (Component) 5.1 mg/dL (0.6-1.3); Estimated Creatinine Clearance 12.8 mL/min (>60); Globulin 2.9 gm/dL (2.3-3.5); Glucose 123 mg/dL (74-106); Magnesium 2.1 mg/dL (1.6-2.6); Osmolality,Calculated 275 (275-295); Potassium 4.3 mMol/L (3.4-5.1); Sodium 133 mMol/L (136-145); Total Protein 6.6 gm/dL (5.7-8.2); eGFR 9 See Note
[2024-07-25] MEDS: BENZONATATE 100 MG CAPSULE PO ×2 (09:19→21:14)
[2024-07-25] MEDS: EPOETIN ALFA-EPBX INJ 40,000 UNIT/ML VIAL (ESRD) 10000 UNIT SC (09:58)
[2024-07-25] MEDS: traMADol HCL 50 MG TABLET PO ×2 (11:08→23:52)
--- NOTE | 2024-07-25 11:36 | ESPR_ITS ---
Documentation for date of: 07/25/24 Subjective Subjective Interval history: Ms. Nguyễn is a 68-year-old who is well-known to me with a past medical history significant for hypertension, diabetes mellitus type 2 insulin- dependent, CAD, CHF HFpEF 60-65%, ESRD (MWF), Atrial Fibrillation on Eliquis and history of renal cell carcinoma s/p Left nephrectomy (2022) has been having significant fluid overload and sometimes receiving 4 times weekly dialysis presented to the emergency department with weakness, shortness of breath and high fevers. In the emergency department she was diagnosed with extensive bilateral pneumonia and also severe pulmonary vascular congestion. EKG showed A-fib with RVR. Labs showed WBC 5.2, hemoglobin 12.5, platelets 152. Sodium 132, potassium 3.6, BUN 28, creatinine 4.6, blood sugar 199, calcium 9.6, AST 65, ALT 44, alk phos 201, troponin 0.12, BNP 06/13/1959, albumin 4, TSH 118, Pro-Devon 0.43, urinalysis shows significant amount of blood and 1+ bacteria. Did level 0.4. Hepatitis STUART positive, hep C positive Admitted for pneumonia, acute chf exacerbation, and A-fib RVR, UTI Medication given in the emergency room Lasix 40 mg x 1, nitroglycerin, cefepime, morphine, aspirin 325. Nephrology consultation requested in view of need for dialysis. Patient currently on dialysis 07/22/2024 patient currently seen in telemetry. Still having significant shortness of breath and edema. Patient had a short run of dialysis yesterday. Next dialysis scheduled for tomorrow. Continue with antibiotics. Admitted with pneumonia/CHF exacerbation. 07/23/2024 patient was seen and examined at bedside. Blood pressure still on the soft side 99/65, pulse rate of 91, respiratory rate of 23, O2 saturation 99 on 1 L of oxygen. His hemoglobin is stable at 9.6, WBC 9, sodium show 133, potassium 4.7, serum creatinine 5.3, BUN 36. Urine culture came back positive for ESBL E. coli. Primary team started patient on meropenem. Patient will undergo a session of dialysis today as per his schedule 07/24/2024 Patient was seen and examined at bedside. Vitally patient was stable. However patient reported that she had episodes of rectal bleeding and also she injured her right foot. Primary team was informed about the bleeding that stopped her Eliquis and her aspirin and they put the patient on pantoprazole and consulted GI. Patient today still seems to be mildly overloaded. And her pertinent lab showed Hgb of 9.7 sodium today is 135, potassium 4.4, BUN of 33, creatinine 4.7, glucose 130, with mild elevation of AST and ALT. Patient reported significant cough primary team was informed that we will plan for the patient promethazine. 01/22/2025, patient was seen and examined at bedside. Patient denied any new symptoms however she seems to be overloaded today. Patient is getting GoLytely for preparation for the colonoscopy by Dr. Krishnamurthy. Her vital signs are within normal limits saturating 98% on 1 L of oxygen. Potassium today is 4.3, BUN of 35, creatinine 5.1, phosphorous 5.0 magnesium 2.1 calcium 9.5. Will reevaluate the patient tomorrow as she continued to get the GoLytely and will assess the patient if she needs extra session of dialysis tomorrow in addition to her dialysis today. Exam Vital Signs Temp Pulse Resp BP Pulse Ox O2 Del Method O2 Flow Rate 96.6 F L 92 20 141/65 H 98 Nasal Cannula 1 07/25/24 08:39 07/25/24 11:30 07/25/24 08:39 07/25/24 11:30 07/25/24 08:39 07/25/24 08:00 07/25/24 08:00 Narrative Exam GEN: AOx3, obese, able to speak full sentences HEENT: NC/AC, oral mucosa moist, neck supple CVS: RRR, S1-S2 present, no murmurs appreciated RESP: Clear, good air entry bilaterally. GI: soft, non distended, non tender, NBS MSK: able to move all 4 limbs, +3 lower extremity edema, right foot skin abrasion minimal newly dressed. SKIN: warm and dry MACHINE HELPER: CN II-XII and Sensation grossly intact. Objective Labs 07/26/24 05:37 07/26/24 05:37 Labs: Laboratory Results - last 24 hr 07/25/24 04:36 WBC 5.0 RBC 3.19 L Hgb 9.8 L Hct 30.5 L MCV 96 MCH 30.7 MCHC 32.1 RDW Std Deviation 54.6 H Plt Count 158 Neut % (Auto) 60 Lymph % (Auto) 27 [place] % (Auto) 8 Eos % (Auto) 3 Baso % (Auto) 1 Neut # (Auto) 3.0 Lymph # (Auto) 1.4 [place] # (Auto) 0.4 Eos # (Auto) 0.1 Baso # (Auto) 0.1 Immature Gran # (Auto) 0.04 H Absolute Nucleated RBC 0.00 Immature Gran % 1 H Nucleated RBC % 0 Sodium 133 L Potassium 4.3 Chloride 94 L Carbon Dioxide 27.1 Anion Gap 12 BUN 35 H Creatinine 5.1 H* Estim Creat Clear Calc 12.8 L eGFR 9 L* BUN/Creatinine Ratio 7 L Glucose 123 H Calculated Osmolality 275 Calcium 9.3 Corrected Calcium 9.5 Phosphorus 5.0 Magnesium 2.1 Total Bilirubin 0.4 AST 75 H ALT 74 H Alkaline Phosphatase 182 H Total Protein 6.6 Albumin 3.7 Globulin 2.9 Albumin/Globulin Ratio 1.3 Quality Measures Quality Measures VTE prophylaxis Advance care planning discussed with:: patient Assessment & Plan Assessment Current Active Medications: Generic Name Dose Route Start Last Admin Trade Name Freq PRN Reason Stop Dose Admin Apixaban 2.5 mg 07/22/24 09:00 07/24/24 08:48 Apixaban 2.5 Mg Tablet PO 08/21/24 08:59 2.5 mg BID KOTA Administration Aspirin 81 mg 07/22/24 09:00 07/24/24 08:48 Aspirin Ec 81 Mg Tabec PO 08/21/24 08:59 81 mg QDAY KOTA Administration Benzonatate 100 mg 07/21/24 11:42 07/25/24 09:19 Benzonatate 100 Mg Capsule PO 08/20/24 11:41 100 mg Q8HR PRN Administration COUGH Protocol Dextrose 25 ml 07/20/24 15:46 Dextrose 50%-Water Inj 50 Ml Syringe IV 08/19/24 15:45 Q15MIN PRN BG 50-70 responsive npo pt Dextrose 50 ml 07/20/24 15:46 07/21/24 07:46 Dextrose 50%-Water Inj 50 Ml Syringe IV 08/19/24 15:45 50 ml Q15MIN PRN Administration BG <50 OR BG <70 & pt unresponsive Glucagon 1 mg 07/20/24 15:46 Glucagon Inj 1 Mg Vial IM Q15MIN PRN BG <70, and no IV access Guaifenesin/Dextromethorphan 1 each 07/20/24 16:08 Guaifenesin/Dm Tablet PO 08/19/24 16:07 Q4HR PRN COUGH Protocol Albumin Human 25 gm in 100 mls @ 100 mls/min 07/20/24 17:18 07/23/24 09:26 Albuminar-25 Ivpb IV 100 mls/min PRN PRN Administration DIALYSIS Piperacillin/Tazobactam/Dextrose 2.25 gm in 50 mls @ 100 mls/hr 07/23/24 06:00 07/25/24 05:38 Zosyn IV 07/30/24 05:59 100 mls/hr Q8HR KOTA Administration Insulin Human Lispro 0 unit 07/20/24 17:00 07/25/24 07:37 Insulin Lispro (Admelog) 1 Unit/0.01 Ml Unit SC 08/19/24 16:59 Not Given ACHS KOTA Protocol Insulin Human Lispro 5 unit 07/20/24 17:00 07/21/24 08:09 Insulin Lispro (Admelog) 1 Unit/0.01 Ml Unit SC 08/19/24 16:59 Not Given ACHS KOTA Ipratropium [place] 0.5 mg 07/20/24 19:00 07/25/24 07:04 Ipratropium Rt 0.5 Mg/ 2.5 Ml Nebu INH 08/19/24 18:59 0.5 mg Q6HRRT KOTA Administration Levalbuterol HCl 0.63 mg 07/21/24 10:00 07/25/24 07:04 Levalbuterol Rt 0.63 Mg/3 Ml Nebu INH 08/20/24 09:59 0.63 mg Q6HRRT KOTA Administration Levothyroxine Sodium 50 mcg 07/22/24 06:00 07/25/24 05:37 Levothyroxine Sodium 25 Mcg Tablet PO 08/21/24 05:59 50 mcg ACBR KOTA Administration Melatonin 3 mg 07/21/24 00:29 07/23/24 22:29 Melatonin 3 Mg Tablet PO 08/20/24 20:59 3 mg HS PRN Administration SLEEPLESSNESS Metoprolol Succinate 50 mg 07/20/24 21:00 07/24/24 21:46 Metoprolol Succinate Xl 25 Mg Tabcr PO 08/19/24 20:59 Not Given HS KOTA Pantoprazole Sodium 40 mg 07/24/24 08:55 07/25/24 09:16 Pantoprazole Inj 40 Mg Vial IV 08/23/24 08:54 Not Given QDAY KOTA Polyethylene Glycol 17 gm 07/20/24 15:45 07/25/24 09:16 Polyethylene Glycol 17 Gm Packet PO 08/19/24 15:44 Not Given QDAY KOTA Promethazine HCl/Dextromethorphan 5 ml 07/24/24 10:29 07/24/24 10:38 Promethazine/Dm Syrup 5 Ml Dose PO 08/23/24 10:28 5 ml Q6HR PRN Administration COUGH OR CONGESTION Protocol Sennosides 1 tab 07/20/24 15:41 Senna Tablet PO 08/19/24 15:40 QDAY PRN CONSTIPATION Protocol Tramadol HCl 50 mg 07/23/24 08:02 07/25/24 11:08 Tramadol Hcl 50 Mg Tablet PO 07/26/24 00:25 50 mg BID PRN Administration PAIN SCALE 4-6 (Moderate Protocol Plan Assessment and plan Summary: A 67 y/o female patient with significant medical history for ESRD on HD (MWF), DM2, HTN, CAD, Afib on Eliquis, CHF and left renal neoplasm s/p nephrectomy (on 05/14/23) BIBA to ED for shortness of breath, fever . nephrology was consulted due to patient's ESRD. #ESRD on hemodialysis M/W/F # Left Nephrectomy- Renal neoplasm Plan ? Dialysis today as per schedule will try to remove 3 L today, will reassess tomorrow if the patient will need extra session of dialysis. ? Strict in and out ? Pharmacy to dose medications #GI bleeding would likely depression or colonoscopy # Pneumonia # UTI # Hypothyroidism #DM #Afib #CAD// CHF Plan ? Follow-up with the primary team recommendations Thank you for the consultation, please do not hesitate to ask or reach out if you have any question or concerns - Patient's plan and care discussed with my attending, Dr. Audrey Miles MD Internal Medicine PGY-2 Attending Provider Attestation/Addendum Seen and examined with resident physician Dr. Ray. Note reviewed, agree with findings and recommendations. Patient currently seen on dialysis. Tolerating dialysis without any problems. Hemodialysis for 3 hours, 2K, ultrafiltration 2-3 L, Epogen 6000, no heparin ordered. Plan of care discussed with the dialysis nurse. Please see dialysis flowsheet for further details.
--- NOTE | 2024-07-25 13:33 | ESPR_ITS ---
<Statement entered by Brandon Montero MD - 07/25/24 15:36> Patient was seen and examined at the bedside. Patient reported that she is unable to drink GoLytely prep however she was encouraged to drink it so that we can perform colonoscopy. Patient received dialysis per schedule today. AST and ALT improving. Rest of the labs were unremarkable. Kidney functions consistent with ESRD. Likely follow-up on colonoscopy results. All labs and orders were reviewed. tin worker was updated that the patient will need isolation bed at SNF due to acute hepatitis A. Patient's family was updated on the plan. Hemoglobin remained stable at 9.8 and possibly might have hemorrhoids. Will follow-up on colonoscopy results. I saw and examined the patient, and I agree with current management stated by Dr Brittney MD,PGY1. Plan of care was discussed with the attending physician and resident physician. Disclaimer: Despite multiple revisions, due to the dictation software being used, the document bellow may not be free of grammatical errors including phonetic/typographic errors. However, this does not deter from our commitment to providing health care in the patient's best interest in mind. Dr. Winston MD, PGY 2 Documentation for date of: 07/25/24 Subjective Subjective Interval history: Patient is a 68-year-old female with a past medical history of hypertension, diabetes mellitus type 2 insulin-dependent, CAD, CHF HFpEF 35-45% (07/25/2024), ESRD (MWF), Atrial Fibrillation on Eliquis and history of renal cell carcinoma s/p Left nephrectomy (2022) who was admitted for pneumonia, acute chf exacerbation and a fib w/ rvr, now rate controlled, and found to have Lower GI bleed. No overnight events reported for patient. Completed round of dialysis today with 3 L UF removed. Scheduled for colonoscopy with Dr. Krishnamurthy for lower GI bleed rule out. Patient encouraged to continue to take GoLytely. PT referral- recommended rehab for further physical therapy. Patient is hepatitis A and C+. Patient denied chest pain. Patient denied further episodes of gudelia blood in stool. Continued to encouraged patient to continue Golytely as she had only completed half the jug. Exam Vital Signs Temp Pulse Resp BP Pulse Ox O2 Del Method O2 Flow Rate 96.9 F 90 18 135/70 H 99 Nasal Cannula 1 07/25/24 12:21 07/25/24 12:29 07/25/24 12:21 07/25/24 12:29 07/25/24 12:21 07/25/24 08:00 07/25/24 08:00 Narrative Exam General Appearance: Alert & Oriented X3, well-nourished female who is lying in bed in no acute distress. HEENT: Skull symmetrical and atraumatic. Conjunctivae pale pink and moist. Pupils equal, round, reactive to light and accommodation (PERRL). External ear without lesion or discharge. Straight, nares patient, mucosa pink, no discharge. No thyroid nodule appreciated. No cervical lymphadenopathy. Cardio: Normal Rate and Rhythm with S1 and S2 heart sounds. No murmurs or extra heart sounds auscultated. No bruits on carotid auscultation. No peripheral edema or cyanosis. Lungs: Symmetric with good expansion. Chest and back non-tender. Decreased vesicular breath sounds noted but no crackles or wheezing noted. Abdomen: Non-tender, Non-distended, Normal Reactive Bowel Sounds Neuro: Alert, cooperative, Yes oriented to person, Yes place, and Yes time. Speech clear. CN grossly intact. Upper motor strength 5/5 and Lower motor strength 5/5. Objective Labs 07/25/24 04:36 07/25/24 04:36 Labs: Laboratory Results - last 24 hr 07/25/24 04:36 WBC 5.0 RBC 3.19 L Hgb 9.8 L Hct 30.5 L MCV 96 MCH 30.7 MCHC 32.1 RDW Std Deviation 54.6 H Plt Count 158 Neut % (Auto) 60 Lymph % (Auto) 27 [place] % (Auto) 8 Eos % (Auto) 3 Baso % (Auto) 1 Neut # (Auto) 3.0 Lymph # (Auto) 1.4 [place] # (Auto) 0.4 Eos # (Auto) 0.1 Baso # (Auto) 0.1 Immature Gran # (Auto) 0.04 H Absolute Nucleated RBC 0.00 Immature Gran % 1 H Nucleated RBC % 0 Sodium 133 L Potassium 4.3 Chloride 94 L Carbon Dioxide 27.1 Anion Gap 12 BUN 35 H Creatinine 5.1 H* Estim Creat Clear Calc 12.8 L eGFR 9 L* BUN/Creatinine Ratio 7 L Glucose 123 H Calculated Osmolality 275 Calcium 9.3 Corrected Calcium 9.5 Phosphorus 5.0 Magnesium 2.1 Total Bilirubin 0.4 AST 75 H ALT 74 H Alkaline Phosphatase 182 H Total Protein 6.6 Albumin 3.7 Globulin 2.9 Albumin/Globulin Ratio 1.3 Quality Measures Quality Measures VTE prophylaxis Advance care planning discussed with:: other Assessment & Plan Assessment Current Active Medications: Generic Name Dose Route Start Last Admin Trade Name Freq PRN Reason Stop Dose Admin Apixaban 2.5 mg 07/22/24 09:00 07/24/24 08:48 Apixaban 2.5 Mg Tablet PO 08/21/24 08:59 2.5 mg BID KOTA Administration Aspirin 81 mg 07/22/24 09:00 07/24/24 08:48 Aspirin Ec 81 Mg Tabec PO 08/21/24 08:59 81 mg QDAY KOTA Administration Benzonatate 100 mg 07/21/24 11:42 07/25/24 09:19 Benzonatate 100 Mg Capsule PO 08/20/24 11:41 100 mg Q8HR PRN Administration COUGH Protocol Dextrose 25 ml 07/20/24 15:46 Dextrose 50%-Water Inj 50 Ml Syringe IV 08/19/24 15:45 Q15MIN PRN BG 50-70 responsive npo pt Dextrose 50 ml 07/20/24 15:46 07/21/24 07:46 Dextrose 50%-Water Inj 50 Ml Syringe IV 08/19/24 15:45 50 ml Q15MIN PRN Administration BG <50 OR BG <70 & pt unresponsive Glucagon 1 mg 07/20/24 15:46 Glucagon Inj 1 Mg Vial IM Q15MIN PRN BG <70, and no IV access Guaifenesin/Dextromethorphan 1 each 07/20/24 16:08 Guaifenesin/Dm Tablet PO 08/19/24 16:07 Q4HR PRN COUGH Protocol Albumin Human 25 gm in 100 mls @ 100 mls/min 07/20/24 17:18 07/23/24 09:26 Albuminar-25 Ivpb IV 100 mls/min PRN PRN Administration DIALYSIS Piperacillin/Tazobactam/Dextrose 2.25 gm in 50 mls @ 100 mls/hr 07/23/24 06:00 07/25/24 05:38 Zosyn IV 07/30/24 05:59 100 mls/hr Q8HR KOTA Administration Insulin Human Lispro 0 unit 07/20/24 17:00 07/25/24 07:37 Insulin Lispro (Admelog) 1 Unit/0.01 Ml Unit SC 08/19/24 16:59 Not Given A[facility]S [facility] Protocol Insulin Human Lispro 5 unit 07/20/24 17:00 07/21/24 08:09 Insulin Lispro (Admelog) 1 Unit/0.01 Ml Unit SC 08/19/24 16:59 Not Given ACHS KOTA Ipratropium [place] 0.5 mg 07/20/24 19:00 07/25/24 12:18 Ipratropium Rt 0.5 Mg/ 2.5 Ml Nebu INH 08/19/24 18:59 Not Given Q6HRRT KOTA Levalbuterol HCl 0.63 mg 07/21/24 10:00 07/25/24 12:19 Levalbuterol Rt 0.63 Mg/3 Ml Nebu INH 08/20/24 09:59 Not Given Q6HRRT KOTA Levothyroxine Sodium 50 mcg 07/22/24 06:00 07/25/24 05:37 Levothyroxine Sodium 25 Mcg Tablet PO 08/21/24 05:59 50 mcg ACBR KOTA Administration Melatonin 3 mg 07/21/24 00:29 07/23/24 22:29 Melatonin 3 Mg Tablet PO 08/20/24 20:59 3 mg HS PRN Administration SLEEPLESSNESS Metoprolol Succinate 50 mg 07/20/24 21:00 07/24/24 21:46 Metoprolol Succinate Xl 25 Mg Tabcr PO 08/19/24 20:59 Not Given HS KOTA Pantoprazole Sodium 40 mg 07/24/24 08:55 07/25/24 09:16 Pantoprazole Inj 40 Mg Vial IV 08/23/24 08:54 Not Given QDAY KOTA Polyethylene Glycol 17 gm 07/20/24 15:45 07/25/24 09:16 Polyethylene Glycol 17 Gm Packet PO 08/19/24 15:44 Not Given QDAY KOTA Promethazine HCl/Dextromethorphan 5 ml 07/24/24 10:29 07/24/24 10:38 Promethazine/Dm Syrup 5 Ml Dose PO 08/23/24 10:28 5 ml Q6HR PRN Administration COUGH OR CONGESTION Protocol Sennosides 1 tab 07/20/24 15:41 Senna Tablet PO 08/19/24 15:40 QDAY PRN CONSTIPATION Protocol Tramadol HCl 50 mg 07/23/24 08:02 07/25/24 11:08 Tramadol Hcl 50 Mg Tablet PO 07/26/24 00:25 50 mg BID PRN Administration PAIN SCALE 4-6 (Moderate Protocol Plan Patient is a 68-year-old female with a past medical history of hypertension, diabetes mellitus type 2 insulin-dependent, CAD, CHF HFpEF 60-65%, ESRD (MWF), Atrial Fibrillation on Eliquis and history of renal cell carcinoma s/p Left nephrectomy (2022) who was admitted on who was admitted for acute chf exacerbation, pneumonia, and Atrial Fibrilation w/ RVR, rate controlled now, and Lower GI bleed. # Elevated transaminitis, secondary hepatitis A and C+ #Lower GI bleed #Anemia normocytic Plan for colonoscopy for lower GI bleed recorded positive FOBT. Given hepatitis A, likely contributing to lower GI bleed possible soft bowel movements reported by patient in the morning. Malignancy cannot be ruled out versus diverticulitis. Plan -GoLytely -Colonoscopy on 07/25/2024 -Clear liquid diets -GI consult, Dr. Krishnamurthy appreciate recommendations -Update SNF, web content & social media manager. #Community-acquired Pneumonia likely GPC Patient presented with increased cough for the past 3 weeks that has been productive. Likely send secondary to viral superimposed bacteria given bilateral component. Likely gram-positive cocci suggest strep pneumoniae. Cocci less likely. PE cannot be ruled out as wells criteria 6 points (16% of PE in the ED). Venous U/S of Lower extremity Negative. PR less likely given no st elevation on EKG but troponins are slighlty elevated at 0.12. Following. No chest pain. COVID flu negative. MRSA negative 07/21/2024 Gram Stain: Epithelial Cells, WBC 1. no organisms seen. Sputum Culture Mixed Plan Ceftriaxone 1 g (07/20/2024)--Zosyn 07/23/2024 for dull coverage of UTI ESBL Azithromycin 500 daily x3 days, completed Chest physio Cough syrup CBC CMP #Atrial Fibrillation #Atrial fibrillation with RVR, resolved. Patient has a past medical history of atrial fibrillation. Home medication of amiodarone 400 twice daily and digoxin 125 mcg daily. Currently holding amiodarone twice daily given elevated TSH as it can cause hyper or hypothyroidism. Pending digoxin levels. Pending final recommendations from cardiology. Second EKG ordered, to confirm A-fib with RVR. RVR likely triggered by pneumonia, CHF exacerbation and lack of dialysis completion. Plan -Continue Metoprolol Succinate 50 mg HS -Hold Amiodarone and Digoxin -If metoprolol fails, consider starting Digoxin 0.125 mg then continue every other day -Cardiology Consulted, Dr. Ring, appreciate recommendations. #Urinary tract infection, complicated Patient presented with a positive UA showing positive esterase, positive WBCs and +1 bacteria. Past medical history of UTIs. Dysuria positive. Negative for suprapubic tenderness. Culture positive for ESBL, patient symptomatic with burning urination Plan -Zosyn 07/23/2024 Day 3 #Acute CHF exacerbation #HFpEF 35 to 40% #Acute Hypoxic Respirtory Failure, resolved #Elevated troponin Has a past medical history of CHF. No Lasix noted for patient. Preserved ejection fraction of 35 to 40% on 07/20/2024. Pulmonary pressure noted 62 mmHg. Patient patient scheduled for dialysis today, reevaluate tomorrow's fluid status. Patient still produces some urine. Positive Orthopnea. Positive Paroxsymal Orthopnea. Requires several pillows to sleep. Wheelchair bound. Lower Pedal edema noted, improved. Lower extremity wound noted-wound care. BNP 1261. Prominent vascular congestion on cxr. Patient produces minimal urine. Elevated troponin on admission, likely NSTEMI II given demand ischemia as there are no ST elevations. NYHA Class: IV Cardiology recommended working towards GDMT outpatient due to soft BP. Patient successfully weaned off O2. Plan: -Metoprolol Succinate 50 HS -Patinet produces minimla urine, no lasix at this time. -K>4 and Mg >2, caution-patient is dialysis. Monitor closely. -Fluid Restriction and Sodium Restriction 2 g per day -Daily Weights, Strict Ins and Outs, Fluid Striction (1800 ml), Sodium Restriction 2 grams per day -wound care -Cardiology Consult, appreciate recommendations. Hypothyroidism Patient presented with a TSH level of 118.25 and a T4 of 0.46 and 1.7 T3. Levothyroxine started 25 mcg p.o. before meals. Medication induced versus euthyroidism versus myxedema coma (less likely). Second TSH 87.56 on 07/21/2024. Plan Levothyroxine 50 mcg p.o. before meals #ESRD (Tuesday Patient has a past medical history of dialysis likely secondary to nephrectomy from renal cell carcinoma (2022). Inpatient dialysis on 07/20/2024, Dr. Ventura consulted, when sanjuanita was admitted as she was feeling unwell. Patient will continue to recieve dialysis in patient. Next scheduled session on 07/25/2024-->3UF (W) Plan Dialysis as per patient's home schedule Renally dose medication Avoid nephrotoxins Phosphorus improved Follow-up with phosphate consider restarting the Sevelamer, based on nephrology recommendations Consult Nephrology, Appreciate Recommendations, Dr. Ventura #Diabetes mellitus type 2 insulin-dependent #Hypoglycemic episode, resolved. Past medical history of diabetes mellitus with Lantus 40 units daily. Previous A1c on 04/07/2023 showed 5%. Glucose on admission 199. Patient experienced a hypoglycemic episode this morning despite having home Lantus reduced by 50% on admission. Stopped Lantus. Stopped scheduled Lispro. Keep sliding scale on. Average glucose 128 and A1c 6.1 Plan Sliding scale ACHS Bedside sugar checks Q6hrs NPO Currently #Hyperlipidemia #CAD Home medication atorvastatin. Currently holding Lipid Cholesterol 69 L, LDL 24, HDL 34; unable to calculate ASCVD given low cholesterol Plan Follow AST's ALT's Consider restarting Atorvastatin on discharge. Holding Atorvastatin #Hypertension Home medication of metoprolol tartrate 25 mg BID as home medication-->currently on Metoprolol Succinate 50 mg PO HS. Plan -Metoprolol Tartrate 25 mg BID D/C -Metoprolol Succinate 50 mg PO HS-->BP & CHF GDMT Health Maintenance: Disp: Telemetry FEN: Clear Liquid-->Transition patient back to peptic ulcer diet/soft foods and advance as tolerated by patient DVT: Eliquis on hold given lower GI Bleed (resume Eliquis tomorrow after reporte) Code: Full code - The patient's plan was discussed with attending Dr. Nguyễn and senior residents Dr. Winston Lugo MD PGY1 Internal Medicine Attending Provider Attestation/Addendum I have discussed and was present for the essential components of the history, physical examination, diagnosis, and treatment plan with the resident. I agree with the patient's care as documented by the resident and amended herein by me. Gary Dennis DO. Although this document has been carefully reviewed, there may still be some phonetic and other typographical errors. These errors are purely grammatical due to imperfections in the software program and should not be construed in any way to compromise the substance of the patient's medical care during this visit.
--- NOTE | 2024-07-25 13:48 | PD.RESPRO ---
Documentation for date of: 07/25/24 Subjective Subjective Interval history: 07/25/2024: Patient examined at bedside. No overnight events on telemetry, rate controlled in the 80s to 90s still in A-fib. Patient reports she is doing well and will be continued to do dialysis. Patient is is doing well, rate controlled with metoprolol 50 XL, still taking Eliquis 2.5. There was concern for GI bleed her hemoglobin is 9.7 which seems to be around her baseline, however she had dark stools and GI was consulted, patient is on GoLytely prep with plans for colonoscopy tomorrow. Dialysis was done 3 L removed today. No other complaints at this time Exam Vital Signs Temp Pulse Resp BP Pulse Ox O2 Del Method O2 Flow Rate 96.9 F 90 18 135/70 H 99 Nasal Cannula 1 07/25/24 12:21 07/25/24 12:29 07/25/24 12:21 07/25/24 12:29 07/25/24 12:21 07/25/24 08:00 07/25/24 08:00 Narrative Exam General: AAOx3, NAD, Lying in bed when examined, pleasant obese woman HEENT: Moist mucous membranes, conjunctiva clear, EOMI, PERRLA, poor dentition (does not wear dentures) Cardiovascular: S1, S2, radial pulses +2 bilat, RRR Pulmonary: Crackles heard diffusely in lung anderson L lower lobe GI: No tenderness to light or deep palpitation, no guarding, rigidity, rebound tenderness or distension Extremities: Pitting edema +2 bilat in LE Neuro: AAOx3, no focal motor or sensory deficits in the UE or LE bilat Psych: Cooperative Objective Labs 07/25/24 04:36 07/25/24 04:36 Labs: Laboratory Results - last 24 hr 07/25/24 04:36 WBC 5.0 RBC 3.19 L Hgb 9.8 L Hct 30.5 L MCV 96 MCH 30.7 MCHC 32.1 RDW Std Deviation 54.6 H Plt Count 158 Neut % (Auto) 60 Lymph % (Auto) 27 [place] % (Auto) 8 Eos % (Auto) 3 Baso % (Auto) 1 Neut # (Auto) 3.0 Lymph # (Auto) 1.4 [place] # (Auto) 0.4 Eos # (Auto) 0.1 Baso # (Auto) 0.1 Immature Gran # (Auto) 0.04 H Absolute Nucleated RBC 0.00 Immature Gran % 1 H Nucleated RBC % 0 Sodium 133 L Potassium 4.3 Chloride 94 L Carbon Dioxide 27.1 Anion Gap 12 BUN 35 H Creatinine 5.1 H* Estim Creat Clear Calc 12.8 L eGFR 9 L* BUN/Creatinine Ratio 7 L Glucose 123 H Calculated Osmolality 275 Calcium 9.3 Corrected Calcium 9.5 Phosphorus 5.0 Magnesium 2.1 Total Bilirubin 0.4 AST 75 H ALT 74 H Alkaline Phosphatase 182 H Total Protein 6.6 Albumin 3.7 Globulin 2.9 Albumin/Globulin Ratio 1.3 Quality Measures Quality Measures VTE prophylaxis Advance care planning discussed with:: patient Assessment & Plan Assessment Current Active Medications: Generic Name Dose Route Start Last Admin Trade Name Freq PRN Reason Stop Dose Admin Apixaban 2.5 mg 07/22/24 09:00 07/24/24 08:48 Apixaban 2.5 Mg Tablet PO 08/21/24 08:59 2.5 mg BID KOTA Administration Aspirin 81 mg 07/22/24 09:00 07/24/24 08:48 Aspirin Ec 81 Mg Tabec PO 08/21/24 08:59 81 mg QDAY KOTA Administration Benzonatate 100 mg 07/21/24 11:42 07/25/24 09:19 Benzonatate 100 Mg Capsule PO 08/20/24 11:41 100 mg Q8HR PRN Administration COUGH Protocol Dextrose 25 ml 07/20/24 15:46 Dextrose 50%-Water Inj 50 Ml Syringe IV 08/19/24 15:45 Q15MIN PRN BG 50-70 responsive npo pt Dextrose 50 ml 07/20/24 15:46 07/21/24 07:46 Dextrose 50%-Water Inj 50 Ml Syringe IV 08/19/24 15:45 50 ml Q15MIN PRN Administration BG <50 OR BG <70 & pt unresponsive Glucagon 1 mg 07/20/24 15:46 Glucagon Inj 1 Mg Vial IM Q15MIN PRN BG <70, and no IV access Guaifenesin/Dextromethorphan 1 each 07/20/24 16:08 Guaifenesin/Dm Tablet PO 08/19/24 16:07 Q4HR PRN COUGH Protocol Albumin Human 25 gm in 100 mls @ 100 mls/min 07/20/24 17:18 07/23/24 09:26 Albuminar-25 Ivpb IV 100 mls/min PRN PRN Administration DIALYSIS Piperacillin/Tazobactam/Dextrose 2.25 gm in 50 mls @ 100 mls/hr 07/23/24 06:00 07/25/24 05:38 Zosyn IV 07/30/24 05:59 100 mls/hr Q8HR KOTA Administration Insulin Human Lispro 0 unit 07/20/24 17:00 07/25/24 07:37 Insulin Lispro (Admelog) 1 Unit/0.01 Ml Unit SC 08/19/24 16:59 Not Given ACHS KOTA Protocol Insulin Human Lispro 5 unit 07/20/24 17:00 07/21/24 08:09 Insulin Lispro (Admelog) 1 Unit/0.01 Ml Unit SC 08/19/24 16:59 Not Given ACHS KOTA Ipratropium [place] 0.5 mg 07/20/24 19:00 07/25/24 12:18 Ipratropium Rt 0.5 Mg/ 2.5 Ml Nebu INH 08/19/24 18:59 Not Given Q6HRRT KOTA Levalbuterol HCl 0.63 mg 07/21/24 10:00 07/25/24 12:19 Levalbuterol Rt 0.63 Mg/3 Ml Nebu INH 08/20/24 09:59 Not Given Q6HRRT KOTA Levothyroxine Sodium 50 mcg 07/22/24 06:00 07/25/24 05:37 Levothyroxine Sodium 25 Mcg Tablet PO 08/21/24 05:59 50 mcg ACBR KOTA Administration Melatonin 3 mg 07/21/24 00:29 07/23/24 22:29 Melatonin 3 Mg Tablet PO 08/20/24 20:59 3 mg HS PRN Administration SLEEPLESSNESS Metoprolol Succinate 50 mg 07/20/24 21:00 07/24/24 21:46 Metoprolol Succinate Xl 25 Mg Tabcr PO 08/19/24 20:59 Not Given HS KOTA Pantoprazole Sodium 40 mg 07/24/24 08:55 07/25/24 09:16 Pantoprazole Inj 40 Mg Vial IV 08/23/24 08:54 Not Given QDAY KOTA Polyethylene Glycol 17 gm 07/20/24 15:45 07/25/24 09:16 Polyethylene Glycol 17 Gm Packet PO 08/19/24 15:44 Not Given QDAY KOTA Promethazine HCl/Dextromethorphan 5 ml 07/24/24 10:29 07/24/24 10:38 Promethazine/Dm Syrup 5 Ml Dose PO 08/23/24 10:28 5 ml Q6HR PRN Administration COUGH OR CONGESTION Protocol Sennosides 1 tab 07/20/24 15:41 Senna Tablet PO 08/19/24 15:40 QDAY PRN CONSTIPATION Protocol Tramadol HCl 50 mg 07/23/24 08:02 07/25/24 11:08 Tramadol Hcl 50 Mg Tablet PO 07/26/24 00:25 50 mg BID PRN Administration PAIN SCALE 4-6 (Moderate Protocol Plan Assessment Zina is a 67 y/o female from assisted with a past medical history of DM type II, HTN, ESRD on HD MWF, CAD, CHF, atrial fibrillation on Eliquis, left renal neoplasm s/p nephrectomy who is admitted for Afib w/RVR. #? GI bleed Hemoglobin around 10, FOBT positive recently Patient is on GoLytely prep Plan: ? Colonoscopy tomorrow #A-fib with RVR #History of cardiac arrest #Hypotension CHADVASC score: 5 points, 7.2% stroke risk per year HAS-BLED score: 4 points Pt is rate controlled at this time and on Eliquis, rate 90s-100s still in afib Concern for thyroid issues due to [facility] intermission coordinator use, will continue with beta patit and titrate doses as needed Patient can be given midodrine 2.5 to 5 mg 15 to 30 minutes prior dialysis sessions if she goes hypotensive Patient had previous cardiac arrest in 2019 upon chart records, however not much information to be extrapolated from chart review Plan: ?Continue Metoprolol 50 XL, hold if blood pressure is permissible ?If the patient goes into A-fib with RVR and blood pressure is low then we can start digoxin at 125 mcg every other day and monitor the levels in 7 days to adjust digoxin dosage. Patient potassium level should be carefully monitored for any hypokalemia and hyperkalemia as it can cause dig toxicity which patient did have previously as per the chart review and hence recommend to hold digoxin for now as rate is controlled. ?Continue Eliquis 5 mg twice daily ?Keep potassium and magnesium above 4 and 2 respectively #History of CAD #History of chronic HFrEF with systolic dysfunction and dilated left ventricle and wall motion abnormalities #Trace pericardial effusion #Elevated troponins, NSTEMI type II, resolved Echo shows dilated left ventricle with mild global hypokinesis and moderate systolic dysfunction 35 to 40% for EF. She also has right ventricle systolic pressure of 62 and severe MAC, pleural effusion present in trace pericardial effusion. Plan: ?Continue with aspirin ?Continue with GDMT therapy as able, on metoprolol 50 XL at this point #History of type 2 diabetes #History of hypertension A1c 6.1 Plan: ? Resume home medicines when able #ESRD, on HD Tuesday #hx of L nephroectomy #Lower extremity edema Likely related due to patient not getting enough dialysis Dr. Fields sees pt, says she goes for diaylsis 4x a week Plan: ? Nephrology on consult, appreciate recs #Hypothyroidism TSH ~110, Free T4 0.46; Recheck shows TSH ~80s No hx of hypothyroidism in the past Pt's BP could be low because of this as well Hypothyroidism from shelter [facility], Will not resume Plan: ? Continue with levothyroxine 50 mcg daily. Patient seen and care discussed with my attending physician, Dr. Octavia Mcmahon, PGY-1 Attending Provider Attestation/Addendum I reviewed the resident Dr. Steiner consultation progress note and agree with the resident findings and plan in the note above and have also edited the documentation to reflect my findings and plan. Orestes Dudley M.D. Interventional Cardiology
--- NOTE | 2024-07-25 15:52 | PD.IMPROG ---
Documentation for date of: 07/25/24 Subjective Subjective Interval history: Patient is scheduled for a colonoscopy but she is not clear procedure postponed to tomorrow and further GoLytely to continue Exam Vital Signs Temp Pulse Resp BP Pulse Ox O2 Del Method O2 Flow Rate 96.5 F L 99 19 122/71 99 Nasal Cannula 2 07/25/24 13:00 07/25/24 13:00 07/25/24 13:00 07/25/24 13:00 07/25/24 13:00 07/25/24 13:00 07/25/24 13:00 Constitutional Comments: Chronically ill-appearing Routine Respiratory Exam Comments: Normal to auscultation Objective Labs 07/25/24 04:36 07/25/24 04:36 Labs: Laboratory Results - last 24 hr 07/25/24 04:36 WBC 5.0 RBC 3.19 L Hgb 9.8 L Hct 30.5 L MCV 96 MCH 30.7 MCHC 32.1 RDW Std Deviation 54.6 H Plt Count 158 Neut % (Auto) 60 Lymph % (Auto) 27 [place] % (Auto) 8 Eos % (Auto) 3 Baso % (Auto) 1 Neut # (Auto) 3.0 Lymph # (Auto) 1.4 [place] # (Auto) 0.4 Eos # (Auto) 0.1 Baso # (Auto) 0.1 Immature Gran # (Auto) 0.04 H Absolute Nucleated RBC 0.00 Immature Gran % 1 H Nucleated RBC % 0 Sodium 133 L Potassium 4.3 Chloride 94 L Carbon Dioxide 27.1 Anion Gap 12 BUN 35 H Creatinine 5.1 H* Estim Creat Clear Calc 12.8 L eGFR 9 L* BUN/Creatinine Ratio 7 L Glucose 123 H Calculated Osmolality 275 Calcium 9.3 Corrected Calcium 9.5 Phosphorus 5.0 Magnesium 2.1 Total Bilirubin 0.4 AST 75 H ALT 74 H Alkaline Phosphatase 182 H Total Protein 6.6 Albumin 3.7 Globulin 2.9 Albumin/Globulin Ratio 1.3 Impressions Impression: # Acute posthemorrhagic anemia # FOBT positive with rectal bleeding Continue GoLytely prep Colonoscopy a.m. Assessment & Plan A&P Narrative # Rectal bleeding # FOBT positive # Posthemorrhagic anemia Plan Clear liquid diet GoLytely prep Consent obtained for fiberoptic colonoscopy with possible biopsy possible therapeutic intervention under intravenous moderate sedation Other medical problems include # End-stage renal disease on hemodialysis MWF # Atrial fibrillation rate controlled on Eliquis # Coronary artery disease stable angina # Systolic congestive heart failure # Diabetes mellitus type 2 # Essential hypertension # Renal cell carcinoma status post left nephrectomy Thank you once again for the opportunity to participate in the care of this patient Time Spent With Patient Time: Total time spent is greater than 50% in coordination of care (as documented) at patient's floor/unit and/or counseling patient:
[2024-07-25] MEDS: PROMETHAZINE/DM SYRUP 5 ML DOSE PO ×2 (17:31→23:52)
[2024-07-25] MEDS: INSULIN LISPRO (AdmeLOG) 1 UNIT/0.01 ML UNIT SC ×2 (17:32→21:15)
[2024-07-25] MEDS: METOPROLOL SUCCINATE XL 25 MG TABCR 50 MG PO (21:14)
[2024-07-26] VITALS (16 sets, daily range): BP systolic 67–136; BP diastolic 32–80; PULSE 45–107; RESP 17–25; TEMP 36–36.8; O2SAT 91–100; BMI 29.0
[2024-07-26] MEDS: IPRATROPIUM RT 0.5 MG/ 2.5 ML NEBU INH ×4 (01:03→19:02)
[2024-07-26] MEDS: LEVALBUTEROL RT 0.63 MG/3 ML NEBU INH ×4 (01:03→19:02)
[2024-07-26] MEDS: LEVOTHYROXINE SODIUM 25 MCG TABLET 50 MCG PO (06:01)
[2024-07-26] MEDS: PIPER/TAZO 2.25 GM 2.25 GM/50 ML BAG IV ×3 (06:01→21:07)
[2024-07-26 06:10] LABS: Basophils # (Auto) 0.1 Thou/mm3 (0.0-0.2); Basophils % (Auto) 1 % (0-2.5); Eosinophils # (Auto) 0.1 Thou/mm3 (0.0-0.5); Eosinophils % (Auto) 2 % (0-10); Hematocrit 31.1 % (36.0-46.0); Immature Granulocytes % (Auto) 1 % (0-0); Immature Granulocytes Auto 0.04 Thou/mm3 (0.00-0.00); Lymphocytes # (Auto) 1.3 Thou/mm3 (1.0-4.8); Lymphocytes % (Auto) 27 % (10-50); Mean Corpuscular HGB Conc 32.2 g/dl (31.0-37.0); Mean Corpuscular Hemoglobin 31.4 pg (25.0-35.0); Mean Corpuscular Volume 98 fL (80-100); Monocytes # (Auto) 0.4 Thou/mm3 (0.0-0.8); Monocytes % (Auto) 9 % (0-12); Neutrophils # (Auto) 2.9 Thou/mm3 (1.8-7.7); Neutrophils % (Auto) 61 % (37-80); Nucleated Red Blood Cell # 0.04 Thou/mm3 (0.00-0.00); Nucleated Red Blood Cell % 1 /100 WBC (0); Platelet Count 186 Thou/mm3 (140-440); RDW Standard Deviation 55.9 fL (36.4-46.3); Red Blood Count 3.18 Miln/mm3 (4.00-5.20); White Blood Count 4.8 Thou/mm3 (3.6-11.0)
[2024-07-26 06:46] LABS: Alanine Aminotransferase 86 U/L (10-49); Albumin, Serum 3.7 gm/dL (3.4-4.8); Albumin/Globulin Ratio 1.3 (1.2-2.2); Alkaline Phosphatase 186 U/L (46-116); Anion Gap 9 (7-16); Aspartate Amino Transferase 77 U/L (0-34); BUN/Creatinine Ratio 6 Ratio (12-20); Bilirubin,Total 0.5 mg/dL (0.3-1.2); Blood Urea Nitrogen 21 mg/dL (9-23); Calcium 9.3 mg/dL (8.3-10.6); Calcium (Corrected) 9.5 mg/dL (8.5-10.1); Carbon Dioxide 31.6 mMol/L (20.0-31.0); Chloride 94 mMol/L (98-107); Creatinine (Component) 3.8 mg/dL (0.6-1.3); Estimated Creatinine Clearance 16.8 mL/min (>60); Globulin 2.9 gm/dL (2.3-3.5); Glucose 110 mg/dL (74-106); Magnesium 1.9 mg/dL (1.6-2.6); Osmolality,Calculated 274 (275-295); Phosphorous 3.9 mg/dL (2.4-5.1); Potassium 3.8 mMol/L (3.4-5.1); Sodium 135 mMol/L (136-145); Total Protein 6.6 gm/dL (5.7-8.2); eGFR 13 See Note
[2024-07-26] MEDS: INSULIN LISPRO (AdmeLOG) 1 UNIT/0.01 ML UNIT SC ×3 (07:54→20:12)
[2024-07-26] MEDS: SODIUM CHLORIDE 0.9% 250 ML 250 ML 999 ML IV (08:03)
[2024-07-26] MEDS: Magnesium Sulfate 2 GM Ivpb 2 GM/50 ML BAG IV (08:03)
[2024-07-26] MEDS: POLYETHYLENE GLYCOL 17 GM PACKET PO (08:08)
[2024-07-26] MEDS: PANTOPRAZOLE INJ 40 MG VIAL IV (08:08)
--- NOTE | 2024-07-26 13:14 | ESPR_ITS ---
Documentation for date of: 07/26/24 Subjective Subjective Interval history: 07/25/2024: Patient examined at bedside. No overnight events on telemetry, rate controlled in the 80s to 90s still in A-fib. Patient reports she is doing well and will be continued to do dialysis. Patient is is doing well, rate controlled with metoprolol 50 XL, still taking Eliquis 2.5. There was concern for GI bleed her hemoglobin is 9.7 which seems to be around her baseline, however she had dark stools and GI was consulted, patient is on GoLytely prep with plans for colonoscopy tomorrow. Dialysis was done 3 L removed today. No other complaints at this time 07/26/2024: Patient examined at bedside today., No overnight events on telemetry, patient still appears to be in A-fib rate controlled in the 90s. Patient still on GoLytely, still has not finished it. Will continue dialysis schedule as well. Her BUN/creatinine was 21 and 3.8 respectively, potassium 3.8 and magnesium 1.9, given 2 mg magnesium today. No other complaints this time Exam Vital Signs Temp Pulse Resp BP Pulse Ox O2 Del Method O2 Flow Rate 98.1 F 102 H 20 97/54 L 100 Nasal Cannula 2 07/26/24 12:00 07/26/24 12:28 07/26/24 12:28 07/26/24 12:00 07/26/24 12:28 07/26/24 12:00 07/26/24 12:28 Narrative Exam General: AAOx3, NAD, Lying in bed when examined, pleasant obese woman HEENT: Moist mucous membranes, conjunctiva clear, EOMI, PERRLA, poor dentition (does not wear dentures) Cardiovascular: S1, S2, radial pulses +2 bilat, RRR Pulmonary: Crackles heard diffusely in lung anderson L lower lobe GI: No tenderness to light or deep palpitation, no guarding, rigidity, rebound tenderness or distension Extremities: Pitting edema +3 bilat in LE Neuro: AAOx3, no focal motor or sensory deficits in the UE or LE bilat Psych: Cooperative Objective Labs 07/27/24 05:20 07/27/24 05:20 Labs: Laboratory Results - last 24 hr 07/26/24 05:37 WBC 4.8 RBC 3.18 L Hgb 10.0 L Hct 31.1 L MCV 98 MCH 31.4 MCHC 32.2 RDW Std Deviation 55.9 H Plt Count 186 Neut % (Auto) 61 Lymph % (Auto) 27 [place] % (Auto) 9 Eos % (Auto) 2 Baso % (Auto) 1 Neut # (Auto) 2.9 Lymph # (Auto) 1.3 [place] # (Auto) 0.4 Eos # (Auto) 0.1 Baso # (Auto) 0.1 Immature Gran # (Auto) 0.04 H Absolute Nucleated RBC 0.04 H Immature Gran % 1 H Nucleated RBC % 1 H Sodium 135 L Potassium 3.8 D Chloride 94 L Carbon Dioxide 31.6 H Anion Gap 9 BUN 21 Creatinine 3.8 H D Estim Creat Clear Calc 16.8 L eGFR 13 L* BUN/Creatinine Ratio 6 L Glucose 110 H Calculated Osmolality 274 L Calcium 9.3 Corrected Calcium 9.5 Phosphorus 3.9 Magnesium 1.9 Total Bilirubin 0.5 AST 77 H ALT 86 H Alkaline Phosphatase 186 H Total Protein 6.6 Albumin 3.7 Globulin 2.9 Albumin/Globulin Ratio 1.3 Quality Measures Quality Measures VTE prophylaxis Advance care planning discussed with:: patient Assessment & Plan Assessment Current Active Medications: Generic Name Dose Route Start Last Admin Trade Name Freq PRN Reason Stop Dose Admin Apixaban 2.5 mg 07/22/24 09:00 07/24/24 08:48 Apixaban 2.5 Mg Tablet PO 08/21/24 08:59 2.5 mg BID KOTA Administration Aspirin 81 mg 07/22/24 09:00 07/24/24 08:48 Aspirin Ec 81 Mg Tabec PO 08/21/24 08:59 81 mg QDAY KOTA Administration Benzonatate 100 mg 07/21/24 11:42 07/25/24 21:14 Benzonatate 100 Mg Capsule PO 08/20/24 11:41 100 mg Q8HR PRN Administration COUGH Protocol Dextrose 25 ml 07/20/24 15:46 Dextrose 50%-Water Inj 50 Ml Syringe IV 08/19/24 15:45 Q15MIN PRN BG 50-70 responsive npo pt Dextrose 50 ml 07/20/24 15:46 07/21/24 07:46 Dextrose 50%-Water Inj 50 Ml Syringe IV 08/19/24 15:45 50 ml Q15MIN PRN Administration BG <50 OR BG <70 & pt unresponsive Glucagon 1 mg 07/20/24 15:46 Glucagon Inj 1 Mg Vial IM Q15MIN PRN BG <70, and no IV access Guaifenesin/Dextromethorphan 1 each 07/20/24 16:08 Guaifenesin/Dm Tablet PO 08/19/24 16:07 Q4HR PRN COUGH Protocol Albumin Human 25 gm in 100 mls @ 100 mls/min 07/20/24 17:18 07/23/24 09:26 Albuminar-25 Ivpb IV 100 mls/min PRN PRN Administration DIALYSIS Piperacillin/Tazobactam/Dextrose 2.25 gm in 50 mls @ 100 mls/hr 07/23/24 06:00 07/26/24 06:01 Zosyn IV 07/30/24 05:59 100 mls/hr Q8HR KOTA Administration Insulin Human Lispro 0 unit 07/20/24 17:00 07/26/24 11:55 Insulin Lispro (Admelog) 1 Unit/0.01 Ml Unit SC 08/19/24 16:59 2 unit ACHS KOTA Administration Protocol Insulin Human Lispro 5 unit 07/20/24 17:00 07/21/24 08:09 Insulin Lispro (Admelog) 1 Unit/0.01 Ml Unit SC 08/19/24 16:59 Not Given ACHS KOTA Ipratropium [place] 0.5 mg 07/20/24 19:00 07/26/24 12:25 Ipratropium Rt 0.5 Mg/ 2.5 Ml Nebu INH 08/19/24 18:59 0.5 mg Q6HRRT KOTA Administration Levalbuterol HCl 0.63 mg 07/21/24 10:00 07/26/24 12:25 Levalbuterol Rt 0.63 Mg/3 Ml Nebu INH 08/20/24 09:59 0.63 mg Q6HRRT KOTA Administration Levothyroxine Sodium 50 mcg 07/22/24 06:00 07/26/24 06:01 Levothyroxine Sodium 25 Mcg Tablet PO 08/21/24 05:59 50 mcg ACBR KOTA Administration Melatonin 3 mg 07/21/24 00:29 07/23/24 22:29 Melatonin 3 Mg Tablet PO 08/20/24 20:59 3 mg HS PRN Administration SLEEPLESSNESS Metoprolol Succinate 50 mg 07/20/24 21:00 07/25/24 21:14 Metoprolol Succinate Xl 25 Mg Tabcr PO 08/19/24 20:59 50 mg HS KOTA Administration Pantoprazole Sodium 40 mg 07/24/24 08:55 07/26/24 08:08 Pantoprazole Inj 40 Mg Vial IV 08/23/24 08:54 40 mg QDAY KOTA Administration Polyethylene Glycol 17 gm 07/20/24 15:45 07/26/24 08:08 Polyethylene Glycol 17 Gm Packet PO 08/19/24 15:44 17 gm QDAY KOTA Administration Promethazine HCl/Dextromethorphan 5 ml 07/24/24 10:29 07/25/24 23:52 Promethazine/Dm Syrup 5 Ml Dose PO 08/23/24 10:28 5 ml Q6HR PRN Administration COUGH OR CONGESTION Protocol Sennosides 1 tab 07/20/24 15:41 Senna Tablet PO 08/19/24 15:40 QDAY PRN CONSTIPATION Protocol Plan Assessment Zina is a 67 y/o female from long-term with a past medical history of DM type II, HTN, ESRD on HD MWF, CAD, CHF, atrial fibrillation on Eliquis, left renal neoplasm s/p nephrectomy who is admitted for Afib w/RVR. #? GI bleed Hemoglobin around 10, FOBT positive recently Patient is on GoLytely prep, still not finished prep Plan: ? Colonoscopy tomorrow #A-fib with RVR #History of cardiac arrest #Hypotension CHADVASC score: 5 points, 7.2% stroke risk per year HAS-BLED score: 4 points Pt is rate controlled at this time and on Eliquis, rate 90s-100s still in afib Concern for thyroid issues due to [employer] group home use, will continue with beta patti and titrate doses as needed Patient can be given midodrine 2.5 to 5 mg 15 to 30 minutes prior dialysis sessions if she goes hypotensive Patient had previous cardiac arrest in 2019 upon chart records, however not much information to be extrapolated from chart review Plan: ?Continue Metoprolol 50 XL, hold if blood pressure is permissible ?If the patient goes into A-fib with RVR and blood pressure is low then we can start digoxin at 125 mcg every other day and monitor the levels in 7 days to adjust digoxin dosage. Patient potassium level should be carefully monitored for any hypokalemia and hyperkalemia as it can cause dig toxicity which patient did have previously as per the chart review and hence recommend to hold digoxin for now as rate is controlled. ?Continue Eliquis 5 mg twice daily ?Keep potassium and magnesium above 4 and 2 respectively #History of CAD #History of chronic HFrEF with systolic dysfunction and dilated left ventricle and wall motion abnormalities #Trace pericardial effusion #Elevated troponins, NSTEMI type II, resolved Echo shows dilated left ventricle with mild global hypokinesis and moderate systolic dysfunction 35 to 40% for EF. She also has right ventricle systolic pressure of 62 and severe MAC, pleural effusion present in trace pericardial effusion. Plan: ?Continue with aspirin ?Continue with GDMT therapy as able, on metoprolol 50 XL at this point #History of type 2 diabetes #History of hypertension A1c 6.1 Plan: ? Resume home medicines when able #ESRD, on HD Tuesday #hx of L nephroectomy #Lower extremity edema Likely related due to patient not getting enough dialysis Dr. Fields sees pt, says she goes for diaylsis 4x a week Plan: ? Nephrology on consult, appreciate recs #Hypothyroidism TSH ~110, Free T4 0.46; Recheck shows TSH ~80s No hx of hypothyroidism in the past Pt's BP could be low because of this as well Hypothyroidism from [employer], Will not resume Plan: ? Continue with levothyroxine 50 mcg daily. Patient seen and care discussed with my attending physician, Dr. Octavia Mcmahon, PGY-1 Attending Provider Attestation/Addendum I have personally seen and examined the patient separately on the above date of service and discussed the plan of care with the resident. I reviewed the resident Dr. Steiner consultation progress note and agree with the resident findings and plan in the note above and have also edited the documentation to reflect my findings and plan. Orestes Dudley M.D. Interventional Cardiology
[2024-07-26] MEDS: ALBUMIN HUMAN 25% IVPB 25 GM/100 ML BTL IV (13:50)
--- NOTE | 2024-07-26 13:50 | PC.NURSE ---
BP low, albumin 25% given IVP.
--- NOTE | 2024-07-26 14:09 | ESPR_ITS ---
<Statement entered by Brandon Montero MD - 07/26/24 18:40> Patient was seen and examined at the bedside this morning. Patient is currently pending for colonoscopy as she did not drink GoLytely prep. Blood pressure was soft however improved after bolus of fluids. We are holding metoprolol for soft blood pressure. Currently awaiting colonoscopy and likely discharge after that. Hemoglobin remained stable. All labs and orders were reviewed. I saw and examined the patient, and I agree with current management stated by Dr Brittney MD,PGY1. Plan of care was discussed with the attending physician and resident physician. Disclaimer: Despite multiple revisions, due to the dictation software being used, the document bellow may not be free of grammatical errors including phonetic/typographic errors. However, this does not deter from our commitment to providing health care in the patient's best interest in mind. Dr. Winston MD, PGY 2 Documentation for date of: 07/26/24 Subjective Subjective Interval history: Night events reported for patient. Patient continues to consume GoLytely and infrequently. Has not cleared out. No gudelia blood noted in stool for patient and hemoglobin hematocrit have been stable for the past 2 days. Patient patient has overall has improved work of breathing was saturating well on 1 L of oxygen this morning. Patient denied chills or fevers overnight. Additional session of dialysis was scheduled for patient for today, but no fluid removed. Will resume normal dialysis schedule tomorrow. Patient continues to be n.p.o. pending colonoscopy. Exam Vital Signs Temp Pulse Resp BP Pulse Ox O2 Del Method O2 Flow Rate 97.5 F 97 20 89/59 L 100 Nasal Cannula 2 07/26/24 12:20 07/26/24 13:46 07/26/24 12:28 07/26/24 13:46 07/26/24 12:28 07/26/24 12:00 07/26/24 12:28 Narrative Exam General Appearance: Alert & Oriented X3, well-nourished female who is lying in bed in no acute distress HEENT: Skull symmetrical and atraumatic. Conjunctivae pale pink and moist. Pupils equal, round, reactive to light and accommodation (PERRL). External ear without lesion or discharge. Straight, nares patient, mucosa pink, no discharge. No thyroid nodule appreciated. No cervical lymphadenopathy. Cardio: Normal Rate and Rhythm with S1 and S2 heart sounds. No murmurs or extra heart sounds auscultated. No bruits on carotid auscultation. Peripheral 2. Lungs: Symmetric with good expansion. Chest and back non-tender. Breath sounds vesicular, improved. Improved crackles. Abdomen: Mid-tenderness, Non-distended, Normal Reactive Bowel Sounds Neuro: Alert, cooperative, oriented to person, place, and time. Speech clear. CN grossly intact. Upper motor strength 5/5 and Lower motor strength 5/5. Sensation intact. Objective Labs 07/26/24 05:37 07/26/24 05:37 Labs: Laboratory Results - last 24 hr 07/26/24 05:37 WBC 4.8 RBC 3.18 L Hgb 10.0 L Hct 31.1 L MCV 98 MCH 31.4 MCHC 32.2 RDW Std Deviation 55.9 H Plt Count 186 Neut % (Auto) 61 Lymph % (Auto) 27 [place] % (Auto) 9 Eos % (Auto) 2 Baso % (Auto) 1 Neut # (Auto) 2.9 Lymph # (Auto) 1.3 [place] # (Auto) 0.4 Eos # (Auto) 0.1 Baso # (Auto) 0.1 Immature Gran # (Auto) 0.04 H Absolute Nucleated RBC 0.04 H Immature Gran % 1 H Nucleated RBC % 1 H Sodium 135 L Potassium 3.8 D Chloride 94 L Carbon Dioxide 31.6 H Anion Gap 9 BUN 21 Creatinine 3.8 H D Estim Creat Clear Calc 16.8 L eGFR 13 L* BUN/Creatinine Ratio 6 L Glucose 110 H Calculated Osmolality 274 L Calcium 9.3 Corrected Calcium 9.5 Phosphorus 3.9 Magnesium 1.9 Total Bilirubin 0.5 AST 77 H ALT 86 H Alkaline Phosphatase 186 H Total Protein 6.6 Albumin 3.7 Globulin 2.9 Albumin/Globulin Ratio 1.3 Quality Measures Quality Measures VTE prophylaxis Advance care planning discussed with:: patient Assessment & Plan Assessment Current Active Medications: Generic Name Dose Route Start Last Admin Trade Name Freq PRN Reason Stop Dose Admin Apixaban 2.5 mg 07/22/24 09:00 07/24/24 08:48 Apixaban 2.5 Mg Tablet PO 08/21/24 08:59 2.5 mg BID KOTA Administration Aspirin 81 mg 07/22/24 09:00 07/24/24 08:48 Aspirin Ec 81 Mg Tabec PO 08/21/24 08:59 81 mg QDAY KOTA Administration Benzonatate 100 mg 07/21/24 11:42 07/25/24 21:14 Benzonatate 100 Mg Capsule PO 08/20/24 11:41 100 mg Q8HR PRN Administration COUGH Protocol Dextrose 25 ml 07/20/24 15:46 Dextrose 50%-Water Inj 50 Ml Syringe IV 08/19/24 15:45 Q15MIN PRN BG 50-70 responsive npo pt Dextrose 50 ml 07/20/24 15:46 07/21/24 07:46 Dextrose 50%-Water Inj 50 Ml Syringe IV 08/19/24 15:45 50 ml Q15MIN PRN Administration BG <50 OR BG <70 & pt unresponsive Glucagon 1 mg 07/20/24 15:46 Glucagon Inj 1 Mg Vial IM Q15MIN PRN BG <70, and no IV access Guaifenesin/Dextromethorphan 1 each 07/20/24 16:08 Guaifenesin/Dm Tablet PO 08/19/24 16:07 Q4HR PRN COUGH Protocol Albumin Human 25 gm in 100 mls @ 100 mls/min 07/20/24 17:18 07/26/24 13:50 Albuminar-25 Ivpb IV 100 mls/min PRN PRN Administration DIALYSIS Piperacillin/Tazobactam/Dextrose 2.25 gm in 50 mls @ 100 mls/hr 07/23/24 06:00 07/26/24 06:01 Zosyn IV 07/30/24 05:59 100 mls/hr Q8HR KOTA Administration Insulin Human Lispro 0 unit 07/20/24 17:00 07/26/24 11:55 Insulin Lispro (Admelog) 1 Unit/0.01 Ml Unit SC 08/19/24 16:59 2 unit ACHS KOTA Administration Protocol Insulin Human Lispro 5 unit 07/20/24 17:00 07/21/24 08:09 Insulin Lispro (Admelog) 1 Unit/0.01 Ml Unit SC 08/19/24 16:59 Not Given ACHS KOTA Ipratropium [place] 0.5 mg 07/20/24 19:00 07/26/24 12:25 Ipratropium Rt 0.5 Mg/ 2.5 Ml Nebu INH 08/19/24 18:59 0.5 mg Q6HRRT KOTA Administration Levalbuterol HCl 0.63 mg 07/21/24 10:00 07/26/24 12:25 Levalbuterol Rt 0.63 Mg/3 Ml Nebu INH 08/20/24 09:59 0.63 mg Q6HRRT KOTA Administration Levothyroxine Sodium 50 mcg 07/22/24 06:00 07/26/24 06:01 Levothyroxine Sodium 25 Mcg Tablet PO 08/21/24 05:59 50 mcg ACBR KOTA Administration Melatonin 3 mg 07/21/24 00:29 07/23/24 22:29 Melatonin 3 Mg Tablet PO 08/20/24 20:59 3 mg HS PRN Administration SLEEPLESSNESS Metoprolol Succinate 50 mg 07/20/24 21:00 07/25/24 21:14 Metoprolol Succinate Xl 25 Mg Tabcr PO 08/19/24 20:59 50 mg HS KOTA Administration Pantoprazole Sodium 40 mg 07/24/24 08:55 07/26/24 08:08 Pantoprazole Inj 40 Mg Vial IV 08/23/24 08:54 40 mg QDAY KOTA Administration Polyethylene Glycol 17 gm 07/20/24 15:45 07/26/24 08:08 Polyethylene Glycol 17 Gm Packet PO 08/19/24 15:44 17 gm QDAY KOTA Administration Promethazine HCl/Dextromethorphan 5 ml 07/24/24 10:29 07/25/24 23:52 Promethazine/Dm Syrup 5 Ml Dose PO 08/23/24 10:28 5 ml Q6HR PRN Administration COUGH OR CONGESTION Protocol Sennosides 1 tab 07/20/24 15:41 Senna Tablet PO 08/19/24 15:40 QDAY PRN CONSTIPATION Protocol Plan Patient is a 68-year-old female with a past medical history of hypertension, diabetes mellitus type 2 insulin-dependent, CAD, CHF HFpEF 60-65%, ESRD (MWF), Atrial Fibrillation on Eliquis and history of renal cell carcinoma s/p Left nephrectomy (2022) who was admitted on who was admitted for acute chf exacerbation, pneumonia, and Atrial Fibrilation w/ RVR, rate controlled now, and Lower GI bleed. # Elevated transaminitis, secondary hepatitis A and C+ #Lower GI bleed #Anemia normocytic Plan for colonoscopy for lower GI bleed recorded positive FOBT. Given hepatitis A, likely contributing to lower GI bleed possible soft bowel movements reported by patient in the morning. Malignancy cannot be ruled out versus diverticulitis. Plan -GoLytely-still on first jug -Colonoscopy on 07/26/2024 -Clear liquid diets -GI consult, Dr. Krishnamurthy appreciate recommendations -Update SNF, social service technician. #Community-acquired Pneumonia likely GPC Patient presented with increased cough for the past 3 weeks that has been productive. Likely send secondary to viral superimposed bacteria given bilateral component. Likely gram-positive cocci suggest strep pneumoniae. Cocci less likely. PE cannot be ruled out as wells criteria 6 points (16% of PE in the ED). Venous U/S of Lower extremity Negative. CA less likely given no st elevation on EKG but troponins are slighlty elevated at 0.12. Following. No chest pain. COVID flu negative. MRSA negative 07/21/2024 Gram Stain: Epithelial Cells, WBC 1. no organisms seen. Sputum Culture Mixed Plan Ceftriaxone 1 g (07/20/2024)--Zosyn 07/23/2024 for dull coverage of UTI ESBL Azithromycin 500 daily x3 days, completed Chest physio Cough syrup CBC CMP #Atrial Fibrillation #Atrial fibrillation with RVR, resolved. Patient has a past medical history of atrial fibrillation. Home medication of amiodarone 400 twice daily and digoxin 125 mcg daily. Currently holding amiodarone twice daily given elevated TSH as it can cause hyper or hypothyroidism. Pending digoxin levels. Pending final recommendations from cardiology. Second EKG ordered, to confirm A-fib with RVR. RVR likely triggered by pneumonia, CHF exacerbation and lack of dialysis completion. Plan -Continue Metoprolol Succinate 50 mg HS -Hold Amiodarone and Digoxin -If metoprolol fails, consider starting Digoxin 0.125 mg then continue every other day -Cardiology Consulted, Dr. Ring, appreciate recommendations. #Urinary tract infection, complicated Patient presented with a positive UA showing positive esterase, positive WBCs and +1 bacteria. Past medical history of UTIs. Dysuria positive. Negative for suprapubic tenderness. Culture positive for ESBL, patient symptomatic with burning urination Plan -Zosyn 07/23/2024 Day 4 #Acute CHF exacerbation #HFpEF 35 to 40% #Acute Hypoxic Respirtory Failure, resolved #Elevated troponin Has a past medical history of CHF. No Lasix noted for patient. Preserved ejection fraction of 35 to 40% on 07/20/2024. Pulmonary pressure noted 62 mmHg. Patient patient scheduled for dialysis today, reevaluate tomorrow's fluid status. Patient still produces some urine. Positive Orthopnea. Positive Paroxsymal Orthopnea. Requires several pillows to sleep. Wheelchair bound. Lower Pedal edema noted, improved. Lower extremity wound noted-wound care. BNP 1261. Prominent vascular congestion on cxr. Patient produces minimal urine. Elevated troponin on admission, likely NSTEMI II given demand ischemia as there are no ST elevations. NYHA Class: IV Cardiology recommended working towards GDMT outpatient due to soft BP. Patient successfully weaned off O2. Plan: -Metoprolol Succinate 50 HS -Pedro produces minimla urine, no lasix at this time. -K>4 and Mg >2, caution-patient is dialysis. Monitor closely. -Fluid Restriction and Sodium Restriction 2 g per day -Daily Weights, Strict Ins and Outs, Fluid Striction (1800 ml), Sodium Restriction 2 grams per day -wound care -Cardiology Consult, appreciate recommendations. Hypothyroidism Patient presented with a TSH level of 118.25 and a T4 of 0.46 and 1.7 T3. Levothyroxine started 25 mcg p.o. before meals. Medication induced versus euthyroidism versus myxedema coma (less likely). Second TSH 87.56 on 07/21/2024. Plan Levothyroxine 50 mcg p.o. before meals #ESRD (Tuesday) Patient has a past medical history of dialysis likely secondary to nephrectomy from renal cell carcinoma (2022). Inpatient dialysis on 07/20/2024, Dr. Ventura consulted, when pedro was admitted as she was feeling unwell. Patient will continue to recieve dialysis in patient. Next scheduled session on 07/25/2024-->3UF (W). Additional dialysis schedule on 07/26/2024, no fluid removed secondary to lower blood pressure. Resume regular dialysis schedule on 07/27/2024. Plan Dialysis as per patient's home schedule Renally dose medication Avoid nephrotoxins Phosphorus improved Follow-up with phosphate consider restarting the Sevelamer, based on nephrology recommendations Consult Nephrology, Appreciate Recommendations, Dr. Ventura #Diabetes mellitus type 2 insulin-dependent #Hypoglycemic episode, resolved. Past medical history of diabetes mellitus with Lantus 40 units daily. Previous A1c on 04/07/2023 showed 5%. Glucose on admission 199. Patient experienced a hypoglycemic episode this morning despite having home Lantus reduced by 50% on admission. Stopped Lantus. Stopped scheduled Lispro. Keep sliding scale on. Average glucose 128 and A1c 6.1 Plan Sliding scale ACHS Bedside sugar checks Q6hrs NPO Currently #Hyperlipidemia #CAD Home medication atorvastatin. Currently holding Lipid Cholesterol 69 L, LDL 24, HDL 34; unable to calculate ASCVD given low cholesterol Plan Follow AST's ALT's Consider restarting Atorvastatin on discharge. Holding Atorvastatin #Hypertension Home medication of metoprolol tartrate 25 mg BID as home medication-->currently on Metoprolol Succinate 50 mg PO HS. Plan -Metoprolol Tartrate 25 mg BID D/C -Metoprolol Succinate 50 mg PO HS-->BP & CHF GDMT Health Maintenance: Disp: Telemetry FEN: Clear Liquid-->Transition patient back to peptic ulcer diet/soft foods and advance as tolerated by patient DVT: holding Eliquis given lower GI bleed. Resume after colonoscopy. Lower pedal edema no compression device. Code: Full code - The patient's plan was discussed with attending Dr. Ohara and senior residents Dr. Winston Lugo MD PGY1 Internal Medicine Attending Provider Attestation/Addendum I attest that I was physically present for the evaluation, physical examination, lab and imaging review of the patient with the residents. I discussed the case with the residents and agree with the findings and plans of care as documented above. At bedside today, patient appears comfortable.? Saturating well on 1 L nasal cannula.? Patient has not finished her GoLytely, encouraged to drink more.? Plan for colonoscopy with GI today.? Hemoglobin continues to be stable. America Ohara MD
--- NOTE | 2024-07-26 14:29 | PC.NURSE ---
BP to low to continue HD, Dr. Ventura notified.
--- NOTE | 2024-07-26 14:51 | PD.RESPRO ---
Documentation for date of: 07/26/24 Subjective Subjective Interval history: Ms. Nguyễn is a 68-year-old who is well-known to me with a past medical history significant for hypertension, diabetes mellitus type 2 insulin-dependent, CAD, CHF HFpEF 60-65%, ESRD (MWF), Atrial Fibrillation on Eliquis and history of renal cell carcinoma s/p Left nephrectomy (2022) has been having significant fluid overload and sometimes receiving 4 times weekly dialysis presented to the emergency department with weakness, shortness of breath and high fevers. In the emergency department she was diagnosed with extensive bilateral pneumonia and also severe pulmonary vascular congestion. EKG showed A-fib with RVR. Labs showed WBC 5.2, hemoglobin 12.5, platelets 152. Sodium 132, potassium 3.6, BUN 28, creatinine 4.6, blood sugar 199, calcium 9.6, AST 65, ALT 44, alk phos 201, troponin 0.12, BNP 06/13/1959, albumin 4, TSH 118, Pro-Devon 0.43, urinalysis shows significant amount of blood and 1+ bacteria. Did level 0.4. Hepatitis STUART positive, hep C positive Admitted for pneumonia, acute chf exacerbation, and A-fib RVR, UTI Medication given in the emergency room Lasix 40 mg x 1, nitroglycerin, cefepime, morphine, aspirin 325. Nephrology consultation requested in view of need for dialysis. Patient currently on dialysis 07/22/2024 patient currently seen in telemetry. Still having significant shortness of breath and edema. Patient had a short run of dialysis yesterday. Next dialysis scheduled for tomorrow. Continue with antibiotics. Admitted with pneumonia/CHF exacerbation. 07/23/2024 patient was seen and examined at bedside. Blood pressure still on the soft side 99/65, pulse rate of 91, respiratory rate of 23, O2 saturation 99 on 1 L of oxygen. His hemoglobin is stable at 9.6, WBC 9, sodium show 133, potassium 4.7, serum creatinine 5.3, BUN 36. Urine culture came back positive for ESBL E. coli. Primary team started patient on meropenem. Patient will undergo a session of dialysis today as per his schedule 07/24/2024 Patient was seen and examined at bedside. Vitally patient was stable. However patient reported that she had episodes of rectal bleeding and also she injured her right foot. Primary team was informed about the bleeding that stopped her Eliquis and her aspirin and they put the patient on pantoprazole and consulted GI. Patient today still seems to be mildly overloaded. And her pertinent lab showed Hgb of 9.7 sodium today is 135, potassium 4.4, BUN of 33, creatinine 4.7, glucose 130, with mild elevation of AST and ALT. Patient reported significant cough primary team was informed that we will plan for the patient promethazine. 07/25/2024, patient was seen and examined at bedside. Patient denied any new symptoms however she seems to be overloaded today. Patient is getting GoLytely for preparation for the colonoscopy by Dr. Krishnamurthy. Her vital signs are within normal limits saturating 98% on 1 L of oxygen. Potassium today is 4.3, BUN of 35, creatinine 5.1, phosphorous 5.0 magnesium 2.1 calcium 9.5. Will reevaluate the patient tomorrow as she continued to get the GoLytely and will assess the patient if she needs extra session of dialysis tomorrow in addition to her dialysis today. 07/26/2024, patient was seen and examined at bedside. Patient denied any symptoms except that she was complaining of her GoLytely but she was not able to finish the whole bottle. It was noticed that the patient was taking ice and also multiple cans of 7-Up to help her with the taste of the GoLytely. Also patient was noticed to have increased lower extremity edema. For that reason, we will do extra session of dialysis for the patient to remove fluids only. Potassium 3.8, carbon dioxide 31.6, creatinine 3.8, BUN 21 calcium 9.5, magnesium 1.9, phosphorus 3.9 Exam Vital Signs Temp Pulse Resp BP Pulse Ox O2 Del Method O2 Flow Rate 97.5 F 60 18 136/70 H 99 Nasal Cannula 2 07/26/24 14:30 07/26/24 14:30 07/26/24 14:30 07/26/24 14:30 07/26/24 14:07/26/24 12:00 07/26/24 14:30 Narrative Exam GEN: AOx3, obese, able to speak full sentences HEENT: NC/AC, oral mucosa moist, neck supple CVS: RRR, S1-S2 present, no murmurs appreciated RESP: Clear, good air entry bilaterally. GI: soft, non distended, non tender, NBS MSK: able to move all 4 limbs, ++3 lower extremity edema, right foot skin abrasion minimal newly dressed. SKIN: warm and dry [employer] MECH[employer]IC: CN II-XII and Sensation grossly intact. Objective Labs 07/26/24 05:37 07/26/24 05:37 Labs: Laboratory Results - last 24 hr 07/26/24 05:37 WBC 4.8 RBC 3.18 L Hgb 10.0 L Hct 31.1 L MCV 98 MCH 31.4 MCHC 32.2 RDW Std Deviation 55.9 H Plt Count 186 Neut % (Auto) 61 Lymph % (Auto) 27 [place] % (Auto) 9 Eos % (Auto) 2 Baso % (Auto) 1 Neut # (Auto) 2.9 Lymph # (Auto) 1.3 [place] # (Auto) 0.4 Eos # (Auto) 0.1 Baso # (Auto) 0.1 Immature Gran # (Auto) 0.04 H Absolute Nucleated RBC 0.04 H Immature Gran % 1 H Nucleated RBC % 1 H Sodium 135 L Potassium 3.8 D Chloride 94 L Carbon Dioxide 31.6 H Anion Gap 9 BUN 21 Creatinine 3.8 H D Estim Creat Clear Calc 16.8 L eGFR 13 L* BUN/Creatinine Ratio 6 L Glucose 110 H Calculated Osmolality 274 L Calcium 9.3 Corrected Calcium 9.5 Phosphorus 3.9 Magnesium 1.9 Total Bilirubin 0.5 AST 77 H ALT 86 H Alkaline Phosphatase 186 H Total Protein 6.6 Albumin 3.7 Globulin 2.9 Albumin/Globulin Ratio 1.3 Quality Measures Quality Measures VTE prophylaxis Advance care planning discussed with:: patient Assessment & Plan Assessment Current Active Medications: Generic Name Dose Route Start Last Admin Trade Name Freq PRN Reason Stop Dose Admin Apixaban 2.5 mg 07/22/24 09:00 07/24/24 08:48 Apixaban 2.5 Mg Tablet PO 08/21/24 08:59 2.5 mg BID KOTA Administration Aspirin 81 mg 07/22/24 09:00 07/24/24 08:48 Aspirin Ec 81 Mg Tabec PO 08/21/24 08:59 81 mg QDAY KOTA Administration Benzonatate 100 mg 07/21/24 11:42 07/25/24 21:14 Benzonatate 100 Mg Capsule PO 08/20/24 11:41 100 mg Q8HR PRN Administration COUGH Protocol Dextrose 25 ml 07/20/24 15:46 Dextrose 50%-Water Inj 50 Ml Syringe IV 08/19/24 15:45 Q15MIN PRN BG 50-70 responsive npo pt Dextrose 50 ml 07/20/24 15:46 07/21/24 07:46 Dextrose 50%-Water Inj 50 Ml Syringe IV 08/19/24 15:45 50 ml Q15MIN PRN Administration BG <50 OR BG <70 & pt unresponsive Glucagon 1 mg 07/20/24 15:46 Glucagon Inj 1 Mg Vial IM Q15MIN PRN BG <70, and no IV access Guaifenesin/Dextromethorphan 1 each 07/20/24 16:08 Guaifenesin/Dm Tablet PO 08/19/24 16:07 Q4HR PRN COUGH Protocol Albumin Human 25 gm in 100 mls @ 100 mls/min 07/20/24 17:18 07/26/24 13:50 Albuminar-25 Ivpb IV 100 mls/min PRN PRN Administration DIALYSIS Piperacillin/Tazobactam/Dextrose 2.25 gm in 50 mls @ 100 mls/hr 07/23/24 06:00 07/26/24 06:01 Zosyn IV 07/30/24 05:59 100 mls/hr Q8HR KOTA Administration Insulin Human Lispro 0 unit 07/20/24 17:00 07/26/24 11:55 Insulin Lispro (Admelog) 1 Unit/0.01 Ml Unit SC 08/19/24 16:59 2 unit ACHS KOTA Administration Protocol Insulin Human Lispro 5 unit 07/20/24 17:00 07/21/24 08:09 Insulin Lispro (Admelog) 1 Unit/0.01 Ml Unit SC 08/19/24 16:59 Not Given ACHS KOTA Ipratropium [place] 0.5 mg 07/20/24 19:00 07/26/24 12:25 Ipratropium Rt 0.5 Mg/ 2.5 Ml Nebu INH 08/19/24 18:59 0.5 mg Q6HRRT KOTA Administration Levalbuterol HCl 0.63 mg 07/21/24 10:00 07/26/24 12:25 Levalbuterol Rt 0.63 Mg/3 Ml Nebu INH 08/20/24 09:59 0.63 mg Q6HRRT KOTA Administration Levothyroxine Sodium 50 mcg 07/22/24 06:00 07/26/24 06:01 Levothyroxine Sodium 25 Mcg Tablet PO 08/21/24 05:59 50 mcg ACBR KOTA Administration Melatonin 3 mg 07/21/24 00:29 07/23/24 22:29 Melatonin 3 Mg Tablet PO 08/20/24 20:59 3 mg HS PRN Administration SLEEPLESSNESS Metoprolol Succinate 50 mg 07/20/24 21:00 07/25/24 21:14 Metoprolol Succinate Xl 25 Mg Tabcr PO 08/19/24 20:59 50 mg HS KOTA Administration Pantoprazole Sodium 40 mg 07/24/24 08:55 07/26/24 08:08 Pantoprazole Inj 40 Mg Vial IV 08/23/24 08:54 40 mg QDAY KOTA Administration Polyethylene Glycol 17 gm 07/20/24 15:45 07/26/24 08:08 Polyethylene Glycol 17 Gm Packet PO 08/19/24 15:44 17 gm QDAY KOTA Administration Promethazine HCl/Dextromethorphan 5 ml 07/24/24 10:29 07/25/24 23:52 Promethazine/Dm Syrup 5 Ml Dose PO 08/23/24 10:28 5 ml Q6HR PRN Administration COUGH OR CONGESTION Protocol Sennosides 1 tab 07/20/24 15:41 Senna Tablet PO 08/19/24 15:40 QDAY PRN CONSTIPATION Protocol Plan Assessment and plan Summary: A 67 y/o female patient with significant medical history for ESRD on HD (MWF), DM2, HTN, CAD, Afib on Eliquis, CHF and left renal neoplasm s/p nephrectomy (on 05/14/23) BIBA to ED for shortness of breath, fever . nephrology was consulted due to patient's ESRD. #ESRD on hemodialysis M/W/F # Left Nephrectomy- Renal neoplasm Today patient was noticed to be overloaded for that reason patient will have extra session of dialysis today. Plan ? Extra sessions of dialysis today to remove fluids, will continue other sessions of dialysis as per schedule ? Strict in and out ? Pharmacy to dose medications #GI bleeding would likely depression or colonoscopy # Pneumonia # UTI # Hypothyroidism #DM #Afib #CAD// CHF Plan ? Follow-up with the primary team recommendations Thank you for the consultation, please do not hesitate to ask or reach out if you have any question or concerns - Patient's plan and care discussed with my attending, Dr. Audrey Miles MD Internal Medicine PGY-2 Attending Provider Attestation/Addendum Patient seen and examined with resident physician Dr. Ray. Note reviewed, agree with findings and recommendations. Patient significantly short of breath and fluid overloaded. Decided to do extra session today. Hemodialysis for 3 hours, sequential ultrafiltration 2 L ordered, Epogen 6000, no heparin ordered. Plan of care discussed with the dialysis nurse. Please see dialysis flowsheet for further details. Got a call from the nurse that patient's blood pressure has been very low and had to terminate dialysis.
[2024-07-26] MEDS: BENZONATATE 100 MG CAPSULE PO (19:45)
[2024-07-26] MEDS: traMADol HCL 50 MG TABLET PO (20:03)
[2024-07-26] MEDS: MELATONIN 3 MG TABLET PO (20:11)
--- NOTE | 2024-07-26 20:49 | PD.IMPROG ---
Documentation for date of: 07/26/24 Subjective Subjective Interval history: Patient evaluated Hemoglobin hematocrit 10.0 and 31.9 Patient is not aggressively taking GoLytely and she is not clear for colonoscopy She is refusing NGT Exam Vital Signs Temp Pulse Resp BP Pulse Ox O2 Del Method O2 Flow Rate 98.3 F 92 21 H 97/74 95 Nasal Cannula 2 07/26/24 16:00 07/26/24 20:33 07/26/24 19:06 07/26/24 20:33 07/26/24 19:06 07/26/24 16:00 07/26/24 19:06 Objective Labs 07/26/24 05:37 07/26/24 05:37 Labs: Laboratory Results - last 24 hr 07/26/24 05:37 WBC 4.8 RBC 3.18 L Hgb 10.0 L Hct 31.1 L MCV 98 MCH 31.4 MCHC 32.2 RDW Std Deviation 55.9 H Plt Count 186 Neut % (Auto) 61 Lymph % (Auto) 27 [place] % (Auto) 9 Eos % (Auto) 2 Baso % (Auto) 1 Neut # (Auto) 2.9 Lymph # (Auto) 1.3 [place] # (Auto) 0.4 Eos # (Auto) 0.1 Baso # (Auto) 0.1 Immature Gran # (Auto) 0.04 H Absolute Nucleated RBC 0.04 H Immature Gran % 1 H Nucleated RBC % 1 H Sodium 135 L Potassium 3.8 D Chloride 94 L Carbon Dioxide 31.6 H Anion Gap 9 BUN 21 Creatinine 3.8 H D Estim Creat Clear Calc 16.8 L eGFR 13 L* BUN/Creatinine Ratio 6 L Glucose 110 H Calculated Osmolality 274 L Calcium 9.3 Corrected Calcium 9.5 Phosphorus 3.9 Magnesium 1.9 Total Bilirubin 0.5 AST 77 H ALT 86 H Alkaline Phosphatase 186 H Total Protein 6.6 Albumin 3.7 Globulin 2.9 Albumin/Globulin Ratio 1.3 Impressions Impression: # Posthemorrhagic anemia Continue GoLytely prep Assessment & Plan A&P Narrative # Rectal bleeding # FOBT positive # Posthemorrhagic anemia Plan Clear liquid diet GoLytely prep Consent obtained for fiberoptic colonoscopy with possible biopsy possible therapeutic intervention under intravenous moderate sedation Other medical problems include # End-stage renal disease on hemodialysis MWF # Atrial fibrillation rate controlled on Eliquis # Coronary artery disease stable angina # Systolic congestive heart failure # Diabetes mellitus type 2 # Essential hypertension # Renal cell carcinoma status post left nephrectomy Thank you once again for the opportunity to participate in the care of this patient Time Spent With Patient Time: Total time spent is greater than 50% in coordination of care (as documented) at patient's floor/unit and/or counseling patient:
[2024-07-27] VITALS (23 sets, daily range): BP systolic 75–164; BP diastolic 20–108; PULSE 41–128; RESP 13–26; TEMP 35.2–36.6; O2SAT 90–100; BMI 28.8; BMI 28.5
[2024-07-27] MEDS: IPRATROPIUM RT 0.5 MG/ 2.5 ML NEBU INH ×3 (00:56→19:46)
[2024-07-27] MEDS: LEVALBUTEROL RT 0.63 MG/3 ML NEBU INH ×3 (00:56→19:46)
[2024-07-27] MEDS: ACETAMINOPHEN 500 MG TABLET PO (02:50)
[2024-07-27] MEDS: PIPER/TAZO 2.25 GM 2.25 GM/50 ML BAG IV ×2 (05:08→21:19)
[2024-07-27] MEDS: LEVOTHYROXINE SODIUM 25 MCG TABLET 50 MCG PO (05:08)
[2024-07-27 05:57] LABS: Basophils # (Auto) 0.1 Thou/mm3 (0.0-0.2); Basophils % (Auto) 1 % (0-2.5); Eosinophils # (Auto) 0.1 Thou/mm3 (0.0-0.5); Eosinophils % (Auto) 2 % (0-10); Hematocrit 31.5 % (36.0-46.0); Hemoglobin 10.1 g/dL (12.0-16.0); Immature Granulocytes % (Auto) 0 % (0-0); Immature Granulocytes Auto 0.02 Thou/mm3 (0.00-0.00); Lymphocytes # (Auto) 1.3 Thou/mm3 (1.0-4.8); Lymphocytes % (Auto) 25 % (10-50); Mean Corpuscular HGB Conc 32.1 g/dl (31.0-37.0); Mean Corpuscular Volume 100 fL (80-100); Monocytes # (Auto) 0.4 Thou/mm3 (0.0-0.8); Monocytes % (Auto) 7 % (0-12); Neutrophils # (Auto) 3.2 Thou/mm3 (1.8-7.7); Neutrophils % (Auto) 64 % (37-80); Nucleated Red Blood Cell # 0.02 Thou/mm3 (0.00-0.00); Nucleated Red Blood Cell % 0 /100 WBC (0); Platelet Count 180 Thou/mm3 (140-440); RDW Standard Deviation 57.2 fL (36.4-46.3); Red Blood Count 3.16 Miln/mm3 (4.00-5.20)
[2024-07-27 06:37] LABS: Alanine Aminotransferase 86 U/L (10-49); Albumin/Globulin Ratio 1.4 (1.2-2.2); Alkaline Phosphatase 175 U/L (46-116); Anion Gap 14 (7-16); Aspartate Amino Transferase 70 U/L (0-34); BUN/Creatinine Ratio 5 Ratio (12-20); Bilirubin,Total 0.6 mg/dL (0.3-1.2); Blood Urea Nitrogen 20 mg/dL (9-23); Calcium 9.8 mg/dL (8.3-10.6); Calcium (Corrected) 9.8 mg/dL (8.5-10.1); Carbon Dioxide 25.9 mMol/L (20.0-31.0); Chloride 94 mMol/L (98-107); Creatinine (Component) 4.4 mg/dL (0.6-1.3); Estimated Creatinine Clearance 14.5 mL/min (>60); Globulin 2.9 gm/dL (2.3-3.5); Glucose 141 mg/dL (74-106); Magnesium 2.1 mg/dL (1.6-2.6); Osmolality,Calculated 272 (275-295); Phosphorous 4.4 mg/dL (2.4-5.1); Potassium 3.6 mMol/L (3.4-5.1); Sodium 134 mMol/L (136-145); Total Protein 6.9 gm/dL (5.7-8.2); eGFR 11 See Note
[2024-07-27] MEDS: INSULIN LISPRO (AdmeLOG) 1 UNIT/0.01 ML UNIT SC ×3 (07:53→21:19)
--- NOTE | 2024-07-27 08:04 | ESPR_ITS ---
<Statement entered by Orestes Dudley MD - 07/28/24 00:23> I have personally seen and examined the patient separately on the above date of service and discussed the plan of care with the resident. I reviewed the resident Dr. Steiner consultation progress note and agree with the resident findings and plan in the note above and have also edited the documentation to reflect my findings and plan. Patient was doing well until the dialysis this afternoon. Patient continues to atrial fibrillation with RVR with rate up to 150 bpm. Amiodarone was discontinued during this admission in the setting of abnormal thyroid function test with elevated TSH of 417. Continue to hold off on the amiodarone. Patient blood pressure was also soft and was hypotensive. Patient was on metoprolol [place] 50 mg once daily. Digoxin also was stopped during this admission initially. Patient was being prepped for possible colonoscopy with greatly over the last couple of days but patient has not been able to drink the complete fluids. Given the GoLytely prep which can also cause severe electrolyte abnormalities, stopping of the amiodarone as well as the digoxin and the dialysis which could also cause significant fluid shifts patient probably reverted back into atrial fibrillation with RVR. Recommendations: Recommend to hold off on the metoprolol XL for now as her blood pressure is low. Will hold off on the amiodarone given her abnormal thyroid function test with signs and symptoms of myxedema With the low blood pressure recommend to give digoxin 250 mcg right now and digoxin 250 mcg in 6 hours which is a loading dose for dialysis patients. Maintenance digoxin dose for dialysis patient is 125 mcg every other day and all the above has been ordered. Recommend to keep the potassium greater than 4 and magnesium greater than 2.0 at all times. Can restart metoprolol XL when the blood pressure is stable. Will check digoxin levels within 7 days. Keep potassium between 4-5 and avoid hypokalemia and hyperkalemia severe to avoid any kind of arrhythmias as the patient has also hemodialysis. Continue to monitor on telemetry Management of rest of the medical conditions as per primary team and other consultants. Thank you for the consult and allowing me to participate in the care of the patient. Cardiology will continue to follow. Orestes Dudley M.D. Interventional Cardiology Documentation for date of: 07/27/24 Subjective Subjective Interval history: 07/25/2024: Patient examined at bedside. No overnight events on telemetry, rate controlled in the 80s to 90s still in A-fib. Patient reports she is doing well and will be continued to do dialysis. Patient is is doing well, rate controlled with metoprolol 50 XL, still taking Eliquis 2.5. There was concern for GI bleed her hemoglobin is 9.7 which seems to be around her baseline, however she had dark stools and GI was consulted, patient is on GoLytely prep with plans for colonoscopy tomorrow. Dialysis was done 3 L removed today. No other complaints at this time 07/26/2024: Patient examined at bedside today., No overnight events on telemetry, patient still appears to be in A-fib rate controlled in the 90s. Patient still on GoLytely, still has not finished it. Will continue dialysis schedule as well. Her BUN/creatinine was 21 and 3.8 respectively, potassium 3.8 and magnesium 1.9, given 2 mg magnesium today. No other complaints this time 07/27/2024: Patient examined at bedside today. Patient did have an episode of heart rate going into the 44 and 52 which occurred this morning. Patient denies being symptomatic with chest pain, had a or passing out. Patient still continuing finishing GoLytely prep and still has not finished it. Patient will get dialysis today at 11. BUN/creatinine today is 24.4 respectively. Magnesium 2.1 and potassium 3.6. Spoke with primary team want to decrease metoprolol XL from 50 to 25 mg. No other complaints at this time Exam Vital Signs Temp Pulse Resp BP Pulse Ox O2 Del Method O2 Flow Rate 97.8 F 52 L 18 129/72 100 Nasal Cannula 1 07/27/24 04:00 07/27/24 07:43 07/27/24 07:43 07/27/24 04:00 07/27/24 07:43 07/27/24 04:00 07/27/24 07:43 Narrative Exam General: AAOx3, NAD, Lying in bed when examined, pleasant obese woman HEENT: Moist mucous membranes, conjunctiva clear, EOMI, PERRLA, poor dentition (does not wear dentures) Cardiovascular: S1, S2, radial pulses +2 bilat, RRR Pulmonary: Crackles heard diffusely in lung [place]erson L lower lobe GI: No tenderness to light or deep palpitation, no guarding, rigidity, rebound tenderness or distension Extremities: Pitting edema +3 bilat in LE Neuro: AAOx3, no focal motor or sensory deficits in the UE or LE bilat Psych: Cooperative Objective Labs 07/27/24 05:20 07/27/24 05:20 Labs: Laboratory Results - last 24 hr 07/27/24 05:20 WBC 5.0 RBC 3.16 L Hgb 10.1 L Hct 31.5 L MCV 100 MCH 32.0 MCHC 32.1 RDW Std Deviation 57.2 H Plt Count 180 Neut % (Auto) 64 Lymph % (Auto) 25 [place] % (Auto) 7 Eos % (Auto) 2 Baso % (Auto) 1 Neut # (Auto) 3.2 Lymph # (Auto) 1.3 [place] # (Auto) 0.4 Eos # (Auto) 0.1 Baso # (Auto) 0.1 Immature Gran # (Auto) 0.02 H Absolute Nucleated RBC 0.02 H Immature Gran % 0 Nucleated RBC % 0 Sodium 134 L Potassium 3.6 Chloride 94 L Carbon Dioxide 25.9 Anion Gap 14 BUN 20 Creatinine 4.4 H* D Estim Creat Clear Calc 14.5 L eGFR 11 L* BUN/Creatinine Ratio 5 L Glucose 141 H Calculated Osmolality 272 L Calcium 9.8 Corrected Calcium 9.8 Phosphorus 4.4 Magnesium 2.1 Total Bilirubin 0.6 AST 70 H ALT 86 H Alkaline Phosphatase 175 H Total Protein 6.9 Albumin 4.0 Globulin 2.9 Albumin/Globulin Ratio 1.4 Quality Measures Quality Measures VTE prophylaxis Advance care planning discussed with:: patient Assessment & Plan Assessment Current Active Medications: Generic Name Dose Route Start Last Admin Trade Name Naresh PRN Reason Stop Dose Admin Apixaban 2.5 mg 07/22/24 09:00 07/24/24 08:48 Apixaban 2.5 Mg Tablet PO 08/21/24 08:59 2.5 mg BID KOTA Administration Aspirin 81 mg 07/22/24 09:00 07/24/24 08:48 Aspirin Ec 81 Mg Tabec PO 08/21/24 08:59 81 mg QDAY KOTA Administration Benzonatate 100 mg 07/21/24 11:42 07/26/24 19:45 Benzonatate 100 Mg Capsule PO 08/20/24 11:41 100 mg Q8HR PRN Administration COUGH Protocol Dextrose 25 ml 07/20/24 15:46 Dextrose 50%-Water Inj 50 Ml Syringe IV 08/19/24 15:45 Q15MIN PRN BG 50-70 responsive npo pt Dextrose 50 ml 07/20/24 15:46 07/21/24 07:46 Dextrose 50%-Water Inj 50 Ml Syringe IV 08/19/24 15:45 50 ml Q15MIN PRN Administration BG <50 OR BG <70 & pt unresponsive Glucagon 1 mg 07/20/24 15:46 Glucagon Inj 1 Mg Vial IM Q15MIN PRN BG <70, and no IV access Guaifenesin/Dextromethorphan 1 each 07/20/24 16:08 Guaifenesin/Dm Tablet PO 08/19/24 16:07 Q4HR PRN COUGH Protocol Albumin Human 25 gm in 100 mls @ 100 mls/min 07/20/24 17:18 07/26/24 13:50 Albuminar-25 Ivpb IV 100 mls/min PRN PRN Administration DIALYSIS Piperacillin/Tazobactam/Dextrose 2.25 gm in 50 mls @ 100 mls/hr 07/23/24 06:00 07/27/24 05:08 Zosyn IV 07/30/24 05:59 12.5 mls/hr Q8HR KOTA Administration Insulin Human Lispro 0 unit 07/20/24 17:00 07/27/24 07:53 Insulin Lispro (Admelog) 1 Unit/0.01 Ml Unit SC 08/19/24 16:59 2 unit ACHS KOTA Administration Protocol Insulin Human Lispro 5 unit 07/20/24 17:00 07/21/24 08:09 Insulin Lispro (Admelog) 1 Unit/0.01 Ml Unit SC 08/19/24 16:59 Not Given ACHS KOTA Ipratropium [place] 0.5 mg 07/20/24 19:00 07/27/24 07:43 Ipratropium Rt 0.5 Mg/ 2.5 Ml Nebu INH 08/19/24 18:59 0.5 mg Q6HRRT KOTA Administration Levalbuterol HCl 0.63 mg 07/21/24 10:00 07/27/24 07:43 Levalbuterol Rt 0.63 Mg/3 Ml Nebu INH 08/20/24 09:59 0.63 mg Q6HRRT KOTA Administration Levothyroxine Sodium 50 mcg 07/22/24 06:00 07/27/24 05:08 Levothyroxine Sodium 25 Mcg Tablet PO 08/21/24 05:59 50 mcg ACBR KOTA Administration Melatonin 3 mg 07/21/24 00:29 07/26/24 20:11 Melatonin 3 Mg Tablet PO 08/20/24 20:59 3 mg HS PRN Administration SLEEPLESSNESS Metoprolol Succinate 50 mg 07/20/24 21:00 07/26/24 20:33 Metoprolol Succinate Xl 25 Mg Tabcr PO 08/19/24 20:59 Not Given HS KOTA Midodrine 10 mg 07/27/24 09:00 Midodrine 5 Mg Tablet PO 08/26/24 08:59 BID KOTA Pantoprazole Sodium 40 mg 07/24/24 08:55 07/26/24 08:08 Pantoprazole Inj 40 Mg Vial IV 08/23/24 08:54 40 mg QDAY KOTA Administration Polyethylene Glycol 17 gm 07/20/24 15:45 07/26/24 08:08 Polyethylene Glycol 17 Gm Packet PO 08/19/24 15:44 17 gm QDAY KOTA Administration Promethazine HCl/Dextromethorphan 5 ml 07/24/24 10:29 07/25/24 23:52 Promethazine/Dm Syrup 5 Ml Dose PO 08/23/24 10:28 5 ml Q6HR PRN Administration COUGH OR CONGESTION Protocol Sennosides 1 tab 07/20/24 15:41 Senna Tablet PO 08/19/24 15:40 QDAY PRN CONSTIPATION Protocol Plan Assessment Zina is a 67 y/o female from senior care with a past medical history of DM type II, HTN, ESRD on HD MWF, CAD, CHF, atrial fibrillation on Eliquis, left renal neoplasm s/p nephrectomy who is admitted for Afib w/RVR. #? GI bleed Hemoglobin around 10, FOBT positive recently Patient is on GoLytely prep, still not finished prep, refusing NG tube at this time Plan: ? 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 We do not recommend decreasing metoprolol as her trend her heart rate has been in the 90s and 100s. Patient would likely need to continue to be on metoprolol and even at a higher dose later as she still has amio in her system since she has been on it for such a long time. Plan: ?Continue Metoprolol 50 XL, hold if blood pressure is permissible ?If the patient goes into A-fib with RVR and blood pressure is low then we can start digoxin at 125 mcg every other day and monitor the levels in 7 days to adjust digoxin dosage. Patient potassium level should be carefully monitored for any hypokalemia and hyperkalemia as it can cause dig toxicity which patient did have previously as per the chart review and hence recommend to hold digoxin for now as rate is controlled. ?Continue Eliquis 5 mg twice daily ?Keep potassium and magnesium above 4 and 2 respectively #History of CAD #History of chronic HFrEF with systolic dysfunction and dilated left ventricle and wall motion abnormalities #Trace pericardial effusion #Elevated troponins, NSTEMI type II, resolved Echo shows dilated left ventricle with mild global hypokinesis and moderate systolic dysfunction 35 to 40% for EF. She also has right ventricle systolic pressure of 62 and severe MAC, pleural effusion present in trace pericardial effusion. Plan: ?Continue with aspirin ?Continue with GDMT therapy as able, on metoprolol 50 XL at this point #History of type 2 diabetes #History of hypertension A1c 6.1 Plan: ? Resume home medicines when able #ESRD, on HD Tuesday #hx of L nephroectomy #Lower extremity edema Likely related due to patient not getting enough dialysis Dr. Fields sees pt, says she goes for diaylsis 4x a week Plan: ? Nephrology on consult, appreciate recs #Hypothyroidism TSH ~110, Free T4 0.46; Recheck shows TSH ~80s No hx of hypothyroidism in the past Pt's BP could be low because of this as well Hypothyroidism from alf Amio, Will not resume Plan: ? Continue with levothyroxine 50 mcg daily. Patient seen and care discussed with my attending physician, Dr. Octavia Mcmahon, PGY-1
[2024-07-27] MEDS: MIDODRINE 5 MG TABLET 10 MG PO ×3 (08:23→21:29)
[2024-07-27] MEDS: POLYETHYLENE GLYCOL 17 GM PACKET PO (08:24)
[2024-07-27] MEDS: PANTOPRAZOLE INJ 40 MG VIAL IV (08:24)
--- NOTE | 2024-07-27 09:15 | PC.SS ---
SS follow up note; Possible colonoscopy today, possibly outpatient.
--- NOTE | 2024-07-27 10:01 | ESPR_ITS ---
Documentation for date of: 07/27/24 Subjective Subjective Interval history: Ms. Nguyễn is a 68-year-old who is well-known to me with a past medical history significant for hypertension, diabetes mellitus type 2 insulin- dependent, CAD, CHF HFpEF 60-65%, ESRD (MWF), Atrial Fibrillation on Eliquis and history of renal cell carcinoma s/p Left nephrectomy (2022) has been having significant fluid overload and sometimes receiving 4 times weekly dialysis presented to the emergency department with weakness, shortness of breath and high fevers. In the emergency department she was diagnosed with extensive bilateral pneumonia and also severe pulmonary vascular congestion. EKG showed A-fib with RVR. Labs showed WBC 5.2, hemoglobin 12.5, platelets 152. Sodium 132, potassium 3.6, BUN 28, creatinine 4.6, blood sugar 199, calcium 9.6, AST 65, ALT 44, alk phos 201, troponin 0.12, BNP 06/13/1959, albumin 4, TSH 118, Pro-Devon 0.43, urinalysis shows significant amount of blood and 1+ bacteria. Did level 0.4. Hepatitis STUART positive, hep C positive Admitted for pneumonia, acute chf exacerbation, and A-fib RVR, UTI Medication given in the emergency room Lasix 40 mg x 1, nitroglycerin, cefepime, morphine, aspirin 325. Nephrology consultation requested in view of need for dialysis. Patient currently on dialysis 07/22/2024 patient currently seen in telemetry. Still having significant shortness of breath and edema. Patient had a short run of dialysis yesterday. Next dialysis scheduled for tomorrow. Continue with antibiotics. Admitted with pneumonia/CHF exacerbation. 07/23/2024 patient was seen and examined at bedside. Blood pressure still on the soft side 99/65, pulse rate of 91, respiratory rate of 23, O2 saturation 99 on 1 L of oxygen. His hemoglobin is stable at 9.6, WBC 9, sodium show 133, potassium 4.7, serum creatinine 5.3, BUN 36. Urine culture came back positive for ESBL E. coli. Primary team started patient on meropenem. Patient will undergo a session of dialysis today as per his schedule 07/24/2024 Patient was seen and examined at bedside. Vitally patient was stable. However patient reported that she had episodes of rectal bleeding and also she injured her right foot. Primary team was informed about the bleeding that stopped her Eliquis and her aspirin and they put the patient on pantoprazole and consulted GI. Patient today still seems to be mildly overloaded. And her pertinent lab showed Hgb of 9.7 sodium today is 135, potassium 4.4, BUN of 33, creatinine 4.7, glucose 130, with mild elevation of AST and ALT. Patient reported significant cough primary team was informed that we will plan for the patient promethazine. 07/25/2024, patient was seen and examined at bedside. Patient denied any new symptoms however she seems to be overloaded today. Patient is getting GoLytely for preparation for the colonoscopy by Dr. Krishnamurthy. Her vital signs are within normal limits saturating 98% on 1 L of oxygen. Potassium today is 4.3, BUN of 35, creatinine 5.1, phosphorous 5.0 magnesium 2.1 calcium 9.5. Will reevaluate the patient tomorrow as she continued to get the GoLytely and will assess the patient if she needs extra session of dialysis tomorrow in addition to her dialysis today. 07/26/2024, patient was seen and examined at bedside. Patient denied any symptoms except that she was complaining of her GoLytely but she was not able to finish the whole bottle. It was noticed that the patient was taking ice and also multiple cans of 7-Up to help her with the taste of the GoLytely. Also patient was noticed to have increased lower extremity edema. For that reason, we will do extra session of dialysis for the patient to remove fluids only. Potassium 3.8, carbon dioxide 31.6, creatinine 3.8, BUN 21 calcium 9.5, magnesium 1.9, phosphorus 3.9 07/27/2024, patient was seen and examined at bedside. Denied any new symptoms. Patient has not finished her GoLytely and was not cleared by GI specialist for colonoscopy. And evaluation patient seems to be overloaded. Vitally stable however there was some mild variation in her pulse rate with drop of her heart rate to the low 40s. , Potassium 3.6, creatinine 4.4, BUN 20, phosphorus and magnesium within normal limits. Patient is scheduled for dialysis today Exam Vital Signs Temp Pulse Resp BP Pulse Ox O2 Del Method O2 Flow Rate 97.1 F 109 H 21 H 97/65 100 Nasal Cannula 2 07/27/24 08:00 07/27/24 08:23 07/27/24 08:00 07/27/24 08:23 07/27/24 08:00 07/27/24 08:00 07/27/24 08:00 Narrative Exam GEN: AOx3, obese, able to speak full sentences HEENT: NC/AC, oral mucosa moist, neck supple CVS: RRR, S1-S2 present, no murmurs appreciated RESP: Clear, good air entry bilaterally. GI: soft, non distended, non tender, NBS MSK: able to move all 4 limbs, ++3 lower extremity edema, right foot skin abrasion minimal newly dressed. 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 Objective Labs 07/28/24 04:50 07/28/24 04:50 Labs: Laboratory Results - last 24 hr 07/27/24 05:20 WBC 5.0 RBC 3.16 L Hgb 10.1 L Hct 31.5 L MCV 100 MCH 32.0 MCHC 32.1 RDW Std Deviation 57.2 H Plt Count 180 Neut % (Auto) 64 Lymph % (Auto) 25 [place] % (Auto) 7 Eos % (Auto) 2 Baso % (Auto) 1 Neut # (Auto) 3.2 Lymph # (Auto) 1.3 [place] # (Auto) 0.4 Eos # (Auto) 0.1 Baso # (Auto) 0.1 Immature Gran # (Auto) 0.02 H Absolute Nucleated RBC 0.02 H Immature Gran % 0 Nucleated RBC % 0 Sodium 134 L Potassium 3.6 Chloride 94 L Carbon Dioxide 25.9 Anion Gap 14 BUN 20 Creatinine 4.4 H* D Estim Creat Clear Calc 14.5 L eGFR 11 L* BUN/Creatinine Ratio 5 L Glucose 141 H Calculated Osmolality 272 L Calcium 9.8 Corrected Calcium 9.8 Phosphorus 4.4 Magnesium 2.1 Total Bilirubin 0.6 AST 70 H ALT 86 H Alkaline Phosphatase 175 H Total Protein 6.9 Albumin 4.0 Globulin 2.9 Albumin/Globulin Ratio 1.4 Quality Measures Quality Measures VTE prophylaxis Advance care planning discussed with:: patient Assessment & Plan Assessment Current Active Medications: Generic Name Dose Route Start Last Admin Trade Name Freq PRN Reason Stop Dose Admin Apixaban 2.5 mg 07/22/24 09:00 07/24/24 08:48 Apixaban 2.5 Mg Tablet PO 08/21/24 08:59 2.5 mg BID KOTA Administration Aspirin 81 mg 07/22/24 09:00 07/24/24 08:48 Aspirin Ec 81 Mg Tabec PO 08/21/24 08:59 81 mg QDAY KOTA Administration Benzonatate 100 mg 07/21/24 11:42 07/26/24 19:45 Benzonatate 100 Mg Capsule PO 08/20/24 11:41 100 mg Q8HR PRN Administration COUGH Protocol Dextrose 25 ml 07/20/24 15:46 Dextrose 50%-Water Inj 50 Ml Syringe IV 08/19/24 15:45 Q15MIN PRN BG 50-70 responsive npo pt Dextrose 50 ml 07/20/24 15:46 07/21/24 07:46 Dextrose 50%-Water Inj 50 Ml Syringe IV 08/19/24 15:45 50 ml Q15MIN PRN Administration BG <50 OR BG <70 & pt unresponsive Glucagon 1 mg 07/20/24 15:46 Glucagon Inj 1 Mg Vial IM Q15MIN PRN BG <70, and no IV access Guaifenesin/Dextromethorphan 1 each 07/20/24 16:08 Guaifenesin/Dm Tablet PO 08/19/24 16:07 Q4HR PRN COUGH Protocol Albumin Human 25 gm in 100 mls @ 100 mls/min 07/20/24 17:18 07/26/24 13:50 Albuminar-25 Ivpb IV 100 mls/min PRN PRN Administration DIALYSIS Piperacillin/Tazobactam/Dextrose 2.25 gm in 50 mls @ 100 mls/hr 07/23/24 06:00 07/27/24 05:08 Zosyn IV 07/30/24 05:59 12.5 mls/hr Q8HR KOTA Administration Insulin Human Lispro 0 unit 07/20/24 17:00 07/27/24 07:53 Insulin Lispro (Admelog) 1 Unit/0.01 Ml Unit SC 08/19/24 16:59 2 unit ACHS KOTA Administration Protocol Insulin Human Lispro 5 unit 07/20/24 17:00 07/21/24 08:09 Insulin Lispro (Admelog) 1 Unit/0.01 Ml Unit SC 08/19/24 16:59 Not Given ACHS KOTA Ipratropium [place] 0.5 mg 07/20/24 19:00 07/27/24 07:43 Ipratropium Rt 0.5 Mg/ 2.5 Ml Nebu INH 08/19/24 18:59 0.5 mg Q6HRRT KOTA Administration Levalbuterol HCl 0.63 mg 07/21/24 10:00 07/27/24 07:43 Levalbuterol Rt 0.63 Mg/3 Ml Nebu INH 08/20/24 09:59 0.63 mg Q6HRRT KTOA Administration Levothyroxine Sodium 50 mcg 07/22/24 06:00 07/27/24 05:08 Levothyroxine Sodium 25 Mcg Tablet PO 08/21/24 05:59 50 mcg ACBR KOTA Administration Melatonin 3 mg 07/21/24 00:29 07/26/24 20:11 Melatonin 3 Mg Tablet PO 08/20/24 20:59 3 mg HS PRN Administration SLEEPLESSNESS Metoprolol Succinate 50 mg 07/27/24 21:00 Metoprolol Succinate Xl 25 Mg Tabcr PO 08/26/24 20:59 HS KOTA Midodrine 10 mg 07/27/24 09:00 07/27/24 08:23 Midodrine 5 Mg Tablet PO 08/26/24 08:59 10 mg BID KOTA Administration Pantoprazole Sodium 40 mg 07/24/24 08:55 07/27/24 08:24 Pantoprazole Inj 40 Mg Vial IV 08/23/24 08:54 40 mg QDAY KOTA Administration Polyethylene Glycol 17 gm 07/20/24 15:45 07/27/24 08:24 Polyethylene Glycol 17 Gm Packet PO 08/19/24 15:44 17 gm QDAY KOTA Administration Promethazine HCl/Dextromethorphan 5 ml 07/24/24 10:29 07/25/24 23:52 Promethazine/Dm Syrup 5 Ml Dose PO 08/23/24 10:28 5 ml Q6HR PRN Administration COUGH OR CONGESTION Protocol Sennosides 1 tab 07/20/24 15:41 Senna Tablet PO 08/19/24 15:40 QDAY PRN CONSTIPATION Protocol Plan Assessment and plan Summary: A 67 y/o female patient with significant medical history for ESRD on HD (MWF), DM2, HTN, CAD, Afib on Eliquis, CHF and left renal neoplasm s/p nephrectomy (on 05/14/23) BIBA to ED for shortness of breath, fever . nephrology was consulted due to patient's ESRD. #ESRD on hemodialysis M/W/F # Left Nephrectomy- Renal neoplasm Today patient was noticed to be overloaded for that reason patient will have extra session of dialysis today. 07/27 in/o 1700 mL over the past 24 hours Plan ? Dialysis today, will continue other sessions of dialysis as per schedule ? Strict in and out ? Pharmacy to dose medications #GI bleeding would likely depression or colonoscopy # Pneumonia # UTI # Hypothyroidism #DM #Afib #CAD// CHF Plan ? Follow-up with the primary team recommendations Thank you for the consultation, please do not hesitate to ask or reach out if you have any question or concerns - Patient's plan and care discussed with my attending, Dr. Audrey Miles MD Internal Medicine PGY-2 Attending Provider Attestation/Addendum Patient seen and examined with resident physician Dr. Ray. Note reviewed, agree with findings and recommendations. Patient currently seen on dialysis. Tolerating dialysis without any problems. Hemodialysis for 3 hours, 2K, ultrafiltration 2-3 L, Epogen 6000, no heparin ordered. Plan of care discussed with the dialysis nurse. Please see dialysis flowsheet for further details.
--- NOTE | 2024-07-27 10:22 | CHAP ---
Patient expressed gratitude for prayer before her procedure.
--- NOTE | 2024-07-27 10:46 | PC.SS ---
Addendum entered by Brit Bragg 07/27/24 12:43: SS received a call from [facility],ETA was set up for 1600. T will inform Floridalma from [facility] as well as patient's nurse Becky. Original Note: SS follow up note; set up transportation with [facility], Reference # [id number].
[2024-07-27] MEDS: ALBUMIN HUMAN 25% IVPB 25 GM/100 ML BTL IV ×2 (13:32→15:10)
--- NOTE | 2024-07-27 13:33 | PC.NURSE ---
BP low, albumin given.
--- NOTE | 2024-07-27 13:45 | PC.SS ---
Addendum entered by Brit Bragg 07/27/24 15:00: HYACINTH follow up note; SS met with patient at bedside and updated her with ETA back to [facility]. Original Note: SS follow up note; SS was informed by patient's nurse that patient is in Dialysis and therefore will need more time and asked to change ETA. SS contacted [facility] and new ETA is for 1900. SS updated patients nurse and Floridalma from [facility]. SS will meet with patient to inform her of ETA.
--- NOTE | 2024-07-27 14:03 | ESDS_ITS ---
<Statement entered by Brandon Montero MD - 07/27/24 14:13> I saw and examined the patient, and I agree with current management stated by Dr Brittney MD,PGY1. Plan of care was discussed with the attending physician and resident physician. Disclaimer: Despite multiple revisions, due to the dictation software being used, the document bellow may not be free of grammatical errors including phonetic/typographic errors. However, this does not deter from our commitment to providing health care in the patient's best interest in mind. Dr. Winston MD, PGY 2 Planned Discharge Date 07/27/24 DS: Providers Provider Date of admission: 07/20/24 14:57 Primary care physician: Lorraine Ventura MD Admitting Provider: Anselmo Dennis DO Attending Provider on Admission: America Ohara MD Consults: 07/20/24 13:30 Consult to Cardiology Stat Comment: Consulting Provider: Orestes Dudley Instructions: Elevated Troponin 07/20/24 13:51 Consult to Nephrology Stat Comment: Consulting Provider: Lorraine Ventura 07/20/24 15:47 Referral Registered Dietitian Routine Comment: 07/21/24 00:30 Referral Registered Dietitian Routine Comment: New pt, abrasion rt lower leg, skin tear rt FA Referral Wound Care Routine Comment: New pt, abrasion rt lower leg, skin tear rt FA 07/23/24 08:40 Referral Physical Therapy Routine Comment: Physician Instructions: 07/24/24 09:08 Consult to Gastroenterology Routine Comment: Consulting Provider: Shanti Krishnamurthy Attending Provider on DC: La Lugo MD Discharging Provider: La Lugo MD DS: Diagnosis Problem List Completed Was Problem List Reviewed/Reconciled?: Yes Hospital Course Hospital Course Hospital course: Summary: Patient is a 68-year-old female with a past medical history of hypertension, diabetes mellitus type 2 insulin-dependent, CAD, CHF HFpEF 60-65%, ESRD (MWF), Atrial Fibrillation on Eliquis and history of renal cell carcinoma s/p Left nephrectomy (2022) who was admitted on who was admitted for acute chf exacerbation, pneumonia, and Atrial Fibrilation w/ RVR, rate controlled now, and lower GI bleed likely from Hepatitis A. Failed colonoscopy study was patient did not take Golytle prep as directed, refused NG. Follow outpatient. ER Course: Patient's vitals were stable blood pressure 141/78, heart rate fluctuating between 110 and 100, respiratory rate 18, started on nasal cannula 3 L saturating at 98%. Patient was found to have elevated bicarb 32.3, elevated BUN 28, elevated creatinine 4.6, creatinine clearance of 14.6, GFR of 10. Patient is a dialysis patient who missed current session. Dialysis likely. Glucose 199. Elevated AST's and ALTs with alkaline phosphatase elevated. Troponin 0.120, continue to trend. BNP elevated 1261. Chest x-ray showed bilateral pneumonia with pulmonary vascular congestion prominent. EKG showed A-fib with RVR, we will will repeat EKG. Venous Doppler showed negative DVT. Medication given in the emergency room Lasix 40 mg x 1, nitroglycerin, cefepime, morphine, aspirin 325. Hospitalization: In hospital, patient received emergency dialysis session on day of admission given her fluid overload status and she had missed her outpatient treatment. Patient presented with dyspnea and worsening lower pedal edema. Patient tested negative for COVID and flu. Chest x-ray showed community-acquired pneumonia likely GPC. Started on antibiotics. Patient's arrived with atrial fibrillation with RVR. Started on metoprolol succinate 50 mg at bedtime. Discontinued amiodarone and digoxin as they both can cause TSH abnormalities which patient presented with. Patient's TSH score was 118.25 and T4 score of 0.46, levothyroxine 50 micro milligrams started before each meal. Patient tested positive for hepatitis A and hepatitis C. Hepatitis C recommended that patient remain in isolation for at least 2 weeks from day of admission (07/20/2024 through 08/05/2024. Holding atorvastatin given elevated AST's and ALT's inpatient. Patient continued to have dialysis session end-stage chronic kidney disease. Patient tested positive for urinary tract infection, complicated as cultures grew ESBL, patient started on Zosyn on 07/23/2024, dual coverage for pneumonia and complicated UTI. Patient subsequently developed lower GI bleed likely secondary to hepatitis A and he was noted to have normocytic anemia. Given positive FOBT, patient was scheduled for colonoscopy but refused stating GoLytely as prescribed and refused NG tube. Please schedule colonoscopy as outpatient to follow-up with lower GI bleed. Patient explained risk and benefits of restarting Eliquis 2 2.5 mg twice daily, patient is understanding and would like to restart Eliquis given her risk of stroke from atrial f ibrillation. Explained that if bleeding is noted again to please follow-up with cardiology or primary care doctor or seek immediate nuclear medical tech. Instructions: -Please start new lower dose of Eliquis, 2.5 mg twice a day for clot prevention -If you notice bleeding please seek immediate medical assistance or speak with your primary care provider. -Please start Metoprolol succinate 50 mg once a day for atrial fibrillation and heart failure. -Continue to Hold Digoxin, if patient goes into Atrial Fibrillation w/ RVR and blood pressure is low, then you may restart Digoxin at 125 mcg every other day and monitor the levels in 7 days to adjust Digoxin dosage. -Please stop Amiodarone -Please monitor your weight, any changes increase greater than 2 lbs please contact your Primary Care Provider or Produce Wrapper to make adjustments to your lasix pills -Please keep sodium intake less than 2 grams and water intake 1800 ml -Please continue continue Lantus 10 units at night for diabetes Mellitus -Goal glucose in the morning of 80-130 and glucose after meals of 200. -Please continue Augmentin 500-125 once a day for 9 more days, for Urinary Tract infection and Pneumonia. -Please start Midodrine 5 mg oral up to three times a day for low blood pressure NEEDED, please take if blood pressure <80/60 -Please keep patient in isolation for the next 2 weeks, until 08/05/2024 for Hepatitis A. -Please continue all your medication as prescribed -Please follow up with your primary care provider within one week of discharge and Cardiologiststs within one week of discharge. -If your symptoms worsen,please seek immediate medical attention and return to your nearest emergency room -If you do not have a primary care provider, you may follow up at the [facility] at [address], [place] [address], Disposition: SNF # Elevated transaminitis, secondary hepatitis A and C+ #Lower GI bleed, resolved. #Anemia normocytic #Community-acquired Pneumonia likely GPC #Atrial Fibrillation #Atrial fibrillation with RVR, resolved. #Urinary tract infection, complicated #Acute CHF exacerbation, improved. #HFpEF 35 to 40% #Acute Hypoxic Respirtory Failure, resolved #Elevated troponin #Hypothyroidism #ESRD (Tuesday) #Diabetes mellitus type 2 insulin-dependent #Hypoglycemic episode, resolved. #Hyperlipidemia #CAD #Hypertension - The patient's plan was discussed with attending Dr. Ohara and senior residents Dr. Winston Lugo MD PGY1 Internal Medicine Time Spent with Patient Time attestation: Total time spent providing and/or coordinating discharge services: at least 35 minutes of care and coordination Exam Vital Signs Temp Pulse Resp BP Pulse Ox O2 Del Method O2 Flow Rate 96.9 F 106 H 18 91/65 90 L Nasal Cannula 3 07/27/24 13:12 07/27/24 13:47 07/27/24 13:12 07/27/24 13:47 07/27/24 13:12 07/27/24 12:00 07/27/24 13:12 Narrative Exam General Appearance: Alert & Oriented X3, well-nourished female who is lying in bed in no acute distress HEENT: Skull symmetrical and atraumatic. Conjunctivae pale pink and moist. Pupils equal, round, reactive to light and accommodation (PERRL). External ear without lesion or discharge. Straight, nares patient, mucosa pink, no discharge. No thyroid nodule appreciated. No cervical lymphadenopathy. Cardio: Normal Rate and Rhythm with S1 and S2 heart sounds. No murmurs or extra heart sounds auscultated. No bruits on carotid auscultation. Peripheral 1. Lungs: Symmetric with good expansion. Chest and back non-tender. Breath sounds vesicular, improved. Improved crackles. Abdomen: Mid-tenderness, Non-distended, Normal Reactive Bowel Sounds Neuro: Alert, cooperative, oriented to person, place, and time. Speech clear. CN grossly intact. Upper motor strength 5/5 and Lower motor strength 5/5. Sensation intact. Discharge Plan Plan Patient Disposition: Xfer Skilled Nsg Fac (SNF) Care Plan Goals: Instructions: -Please start new lower dose of Eliquis, 2.5 mg twice a day for clot prevention -If you notice bleeding please seek immediate medical assistance or speak with your primary care provider. -Please start Metoprolol succinate 50 mg once a day for atrial fibrillation and heart failure. -Continue to Hold Digoxin, if patient goes into Atrial Fibrillation w/ RVR and blood pressure is low, then you may restart Digoxin at 125 mcg every other day and monitor the levels in 7 days to adjust Digoxin dosage. -Please stop Amiodarone -Please monitor your weight, any changes increase greater than 2 lbs please contact your Primary Care Provider or Produce Wrapper to make adjustments to your lasix pills -Please keep sodium intake less than 2 grams and water intake 1800 ml -Please continue continue Lantus 10 units at night for diabetes Mellitus -Goal glucose in the morning of 80-130 and glucose after meals of 200. -Please continue Augmentin 500-125 once a day for 9 more days, for Urinary Tract infection and Pneumonia. -Please start Midodrine 5 mg oral up to three times a day for low blood pressure NEEDED, please take if blood pressure <80/60 -Please keep patient in isolation for the next 2 weeks, until 08/05/2024 for Hepatitis A. -Please continue all your medication as prescribed -Please follow up with your primary care provider within one week of discharge and Cardiologiststs within one week of discharge. -If your symptoms worsen,please seek immediate medical attention and return to your nearest emergency room -If you do not have a primary care provider, you [facility] follow [facility] [address], [place] [address], Disposition: SNF Prescriptions/Referrals Prescriptions/Med Rec: New benzonatate 100 mg Capsule 100 mg PO Q8HR PRN (Reason: Cough) 30 Days Qty: 30 0RF levothyroxine 25 mcg Tablet 25 mcg PO ACBR 30 Days Qty: 30 0RF insulin glargine [Lantus Solostar U-100 Insulin] 100 unit/mL (3 mL) insulin pen 10 unit subcut QPM Qty: 15 0RF Eliquis 2.5 mg tablet 2.5 mg PO BID Qty: 30 0RF metoprolol succinate 50 mg capsule,sprinkle,ER 24hr 50 mg PO HS 30 Days Qty: 30 0RF polyethylene glycol 3350 17 gram/dose powder 17 g PO QDAY 30 Days Qty: 119 0RF midodrine 10 mg tablet 10 mg PO TID 30 Days Qty: 90 1RF Continued (DME) True Metrix Glucose Test Strip strip Patient Comments: USE STRIP TO CHECK GLUCOSE DIRECTED ONCE DAILY Rx Instructions: check as directed once daily (DME) pen needle, diabetic [BD Ultra-Fine Orig Pen Needle] 29 gauge x 1/2 needle Rx Instructions: check as directed once daily melatonin 3 mg Tablet 3 mg PO HS PRN (Reason: Insomnia) ferrous sulfate [FeroSul] 325 mg (65 mg iron) Tablet 325 mg PO TID loratadine 10 mg Tablet 10 mg PO QDAY magnesium oxide 400 mg magnesium Tablet 400 mg PO TID aspirin 81 mg tablet,delayed release (DR/EC) 81 mg PO QDAY mirtazapine [Remeron] 15 mg Tablet 7.5 mg PO HS bisacodyl [Dulcolax (bisacodyl)] 10 mg Suppository 10 mg RI Q72H PRN (Reason: Constipation) Rx Instructions: If Milk of Magnesia ineffective Fleet Enema 19-7 gram/118 mL Enema 118 ml RI Q72H PRN (Reason: Constipation) Rx Instructions: If Milk of Magnesia/Dulcolax suppository ineffective magnesium hydroxide [Milk of Magnesia] 400 mg/5 mL Suspension 30 ml PO Q72H PRN (Reason: Constipation) Rx Instructions: If no BM in 3 consecutive days Tradjenta 5 mg Tablet 5 mg PO QDAY ondansetron HCl 4 mg Tablet 4 mg PO Q6H PRN (Reason: Nausea And Vomiting) tramadol 50 mg Tablet 50 mg PO Q6H PRN (Reason: Pain (Scale Score 4-6)) diphenhydramine HCl [Benadryl Allergy] 25 mg Tablet 25 mg PO Q8HR PRN (Reason: Itching) Glucagon Emergency Kit (human) 1 mg recon soln 1 mg subcut Rx Instructions: give 1mg Subcut every twenty minutes as needed for bs<60 max 2 doses docusate sodium 250 mg Capsule 250 mg PO DAILY PRN (Reason: Constipation) atorvastatin 40 mg Tablet 40 mg PO HS sevelamer HCl 800 mg Tablet 1,600 mg PO TIDWM Rx Instructions: must administer with a meal/food acetaminophen [Tylenol] 325 mg Tablet 650 mg PO [id number] PRN (Reason: Pain (Scale Score 1-3)) amino acids-protein hydrolys 15 gram- 100 kcal/30 mL Liquid In Packet 1 ea TIDWM Rx Instructions: give 30 mL by mouth with meals for low albumin Held digoxin 125 mcg (0.125 mg) Tablet 125 mcg PO QDAY Hold Instructions: Resume on 07/23/24. Hold until you see your PCP Discontinued insulin glargine [Basaglar KwikPen U-100 Insulin] 100 unit/mL (3 mL) Insulin Pen 40 unit SUBCUT QAM Rx Instructions: hold for bs <100 notify md is bs <70 or >400 diltiazem HCl 60 mg tablet 60 mg PO BID Rx Instructions: hold for SBP<100 or DBP <60 cephalexin 500 mg capsule 500 mg PO BID Qty: 10 0RF apixaban 5 mg tablet 5 mg PO BID 30 Days Qty: 60 1RF cephalexin 500 mg capsule 500 mg PO Q8H Qty: 30 0RF metoprolol tartrate 25 mg Tablet 25 mg PO BID amiodarone 200 mg tablet 400 mg PO BID Rx Instructions: hold for pulse less than 60 Referrals: Lorraine Ventura MD [Primary Care Provider] - Patient/Caregiver Discharge Instructions Print Language: Upper Sorbian Stand Alone Forms: Lelo Award Info., Patient Portal Info Letter Quality Discharge Quality Measures VTE prophylaxis MD Attestestation MD Attestation I attest that I was physically present for the evaluation, physical examination, lab and imaging review of the patient with the residents. I discussed the case with the residents and agree with the findings and plans of care as documented above. Patient has been unable to drink her GoLytely and has not been clear for colonoscopy. Colonoscopy yesterday was canceled as well. Her vitals are stable, saturating well on 2 L nasal cannula. Lab results also continue to be stable except for kidney function. Patient is scheduled for dialysis today. Hemoglobin continues to be stable. Discussed with GI, recommended outpatient follow-up with GI and outpatient colonoscopy. Patient was planned for discharge this morning but she had a rapid response called this evening due to low blood pressure during dialysis. Received albumin, 250 cc normal saline bolus with improvement in blood pressure. Dialysis was not completed. America Ohara MD
--- NOTE | 2024-07-27 14:32 | ESPR_ITS ---
Documentation for date of: 07/27/24 Subjective Subjective Interval history: Case discussed with the internal medicine team Colonoscopy canceled as patient is totally uncooperative drinking the GoLytely for the last 3 days Hemoglobin hematocrit stabilized on 10.1 and 31.5 If she changes her mind we can do that as an outpatient Advance diet Exam Vital Signs Temp Pulse Resp BP Pulse Ox O2 Del Method O2 Flow Rate 96.9 F 49 L 18 109/63 90 L Nasal Cannula 3 07/27/24 13:12 07/27/24 14:30 07/27/24 13:12 07/27/24 14:30 07/27/24 13:12 07/27/24 12:00 07/27/24 13:12 Constitutional Comments: Alert oriented Routine Respiratory Exam Comments: Normal to auscultation Routine Abdominal Exam Comments: Soft nontender Objective Labs 07/27/24 05:20 07/27/24 05:20 Labs: Laboratory Results - last 24 hr 07/27/24 05:20 WBC 5.0 RBC 3.16 L Hgb 10.1 L Hct 31.5 L MCV 100 MCH 32.0 MCHC 32.1 RDW Std Deviation 57.2 H Plt Count 180 Neut % (Auto) 64 Lymph % (Auto) 25 [place] % (Auto) 7 Eos % (Auto) 2 Baso % (Auto) 1 Neut # (Auto) 3.2 Lymph # (Auto) 1.3 [place] # (Auto) 0.4 Eos # (Auto) 0.1 Baso # (Auto) 0.1 Immature Gran # (Auto) 0.02 H Absolute Nucleated RBC 0.02 H Immature Gran % 0 Nucleated RBC % 0 Sodium 134 L Potassium 3.6 Chloride 94 L Carbon Dioxide 25.9 Anion Gap 14 BUN 20 Creatinine 4.4 H* D Estim Creat Clear Calc 14.5 L eGFR 11 L* BUN/Creatinine Ratio 5 L Glucose 141 H Calculated Osmolality 272 L Calcium 9.8 Corrected Calcium 9.8 Phosphorus 4.4 Magnesium 2.1 Total Bilirubin 0.6 AST 70 H ALT 86 H Alkaline Phosphatase 175 H Total Protein 6.9 Albumin 4.0 Globulin 2.9 Albumin/Globulin Ratio 1.4 Impressions Impression: # Anemia blood loss Colonoscopy canceled because of patient's lack of commitment to the GoLytely preparation Advance diet Assessment & Plan A&P Narrative # Rectal bleeding # FOBT positive # Posthemorrhagic anemia Plan Clear liquid diet GoLytely prep Consent obtained for fiberoptic colonoscopy with possible biopsy possible therapeutic intervention under intravenous moderate sedation Other medical problems include # End-stage renal disease on hemodialysis MWF # Atrial fibrillation rate controlled on Eliquis # Coronary artery disease stable angina # Systolic congestive heart failure # Diabetes mellitus type 2 # Essential hypertension # Renal cell carcinoma status post left nephrectomy Thank you once again for the opportunity to participate in the care of this patient Time Spent With Patient Time: Total time spent is greater than 50% in coordination of care (as documented) at patient's floor/unit and/or counseling patient:
--- NOTE | 2024-07-27 15:06 | PC.NURSE ---
BP low, decreased goal to 0.5 L.
--- NOTE | 2024-07-27 15:21 | PC.SS ---
SS follow up note; Patient was in Dialysis when Rapid was called due to low blood pressure. Dr. Montero informed SS to cancel transportation. SS updated Floridalma from [facility].
--- NOTE | 2024-07-27 15:26 | EKG_ITS ---
[facility] Test Date: 2024-07-27 Pat Name: BERT ALEJANDRO [facility] Female Supervisor Case Loading: DOMITILA : 1955 Requested By: Jim Mcintosh Order Number: [id number] Reading MD: Jim Mcintosh Measurements Intervals Rodney Rate: 132 P: NE: QRS: 152 QRSD: 86 T: -19 QT: 296 QTc: 440 Interpretive Statements ATRIAL FIBRILLATION WITH RAPID VENTRICULAR RESPONSE POSSIBLE RIGHT VENTRICULAR HYPERTROPHY [SOME/ALL OF: PROMINENT R IN V1, LATE TRANSITION, RAD, LYNETTE, SSS] ANTEROSEPTAL MYOCARDIAL INFARCTION , PROBABLY OLD [40+ ms Q WAVE IN V1-V4] Compared to ECG 07/20/2024 16:08:00 Right-axis deviation no longer present Myocardial infarct finding still present /store/S0/[id number]/[id number].pdf
--- NOTE | 2024-07-27 15:36 | PC.NURSE ---
Addendum entered by Nora Pearson RN 07/27/24 15:39: Dialysis stopped all blood returned to pt. Original Note: Rapid called due to low BP. 200 NS bolus given and albumin 25% given, but BP not increasing.
--- NOTE | 2024-07-27 15:49 | ESPR_ITS ---
<Statement entered by Brandon Montero MD - 07/27/24 16:11> Patient was seen and examined at the bedside this morning. Patient was having shortness of breath and was passing loose bowel movements due to GoLytely prep. GI was consulted and he recommended to hold on colonoscopy as there is less likely risk of GI bleeding as her hemoglobin was stable. Rapid response was called later this evening due to hypotension blood pressure dropped to 44/22 during dialysis and dialysis was held. Patient was given IV fluids NS to 250 cc bolus, albumin x 2 and EKG was performed which showed A-fib RVR with heart rate 132 bpm. We have been holding patient's metoprolol 50 mg at bedtime since yesterday due to soft blood pressure. Holding off on colonoscopy and keeping her for blood pressure monitoring closely. Patient most likely has hypotensive episode due to GoLytely prep and ending up in loose watery stools. Will likely hold off on bowel regimen as well. Will follow-up with cardiology recommendations in regards to her A-fib. Patient was also complaining of pleuritic chest pain and breathing treatment gave albuterol was ordered. Will follow-up on troponin I. Blood pressure after rapid improved to 122/99 heart rate was 119 bpm. Patient was saturating well on 4 L NC. She was not desatting and was more anxious during rapid. Will closely monitor and drug abuse social worker was updated. We increased her midodrine to 10 3 times daily. All labs and orders were reviewed. I saw and examined the patient, and I agree with current management stated by Dr Brittney MD,PGY1. Plan of care was discussed with the attending physician and resident physician. Disclaimer: Despite multiple revisions, due to the dictation software being used, the document bellow may not be free of grammatical errors including phonetic/typographic errors. However, this does not deter from our commitment to providing health care in the patient's best interest in mind. Dr. Winston MD, PGY 2 Documentation for date of: 07/27/24 Subjective Subjective Interval history: No overnight events reported for patient. Patient has not completed Golytle jub for colonoscopy and refused NGT. Colonoscopy out patient. Patient developed hypotension, during dialysis, likely secondary to Golytle. Midodrine increased to TID. Gave additional dose of Midodine X 1. Metropolol held. Reached out to cardiology. Resume Digoxin, loading dose 0.125 followed by second dose at 8 PM of 0.125. Digoxin levels needed with AM. Exam Vital Signs Temp Pulse Resp BP Pulse Ox O2 Del Method O2 Flow Rate 95.3 F L 59 L 18 92/61 100 Nasal Cannula 6 07/27/24 15:39 07/27/24 15:39 07/27/24 15:39 07/27/24 15:39 07/27/24 15:39 07/27/24 12:00 07/27/24 15:39 Narrative Exam General Appearance: Alert & Oriented X3, well-nourished female who is lying in bed in no acute distress HEENT: Skull symmetrical and atraumatic. Conjunctivae pale pink and moist. Pupils equal, round, reactive to light and accommodation (PERRL). External ear without lesion or discharge. Straight, nares patient, mucosa pink, no discharge. No thyroid nodule appreciated. No cervical lymphadenopathy. Cardio: Normal Rate and Rhythm with S1 and S2 heart sounds. No murmurs or extra heart sounds auscultated. No bruits on carotid auscultation. Peripheral 2. Lungs: Symmetric with good expansion. Chest and back non-tender. Breath sounds vesicular, improved. Improved crackles. Mild wheezing on right pulmonary anderson. Abdomen: Mid-tenderness, Non-distended, Normal Reactive Bowel Sounds Neuro: Alert, cooperative, oriented to person, place, and time. Speech clear. CN grossly intact. Upper motor strength 5/5 and Lower motor strength 5/5. Sensation Objective Labs 07/27/24 05:20 07/27/24 05:20 Labs: Laboratory Results - last 24 hr 07/27/24 05:20 WBC 5.0 RBC 3.16 L Hgb 10.1 L Hct 31.5 L MCV 100 MCH 32.0 MCHC 32.1 RDW Std Deviation 57.2 H Plt Count 180 Neut % (Auto) 64 Lymph % (Auto) 25 [place] % (Auto) 7 Eos % (Auto) 2 Baso % (Auto) 1 Neut # (Auto) 3.2 Lymph # (Auto) 1.3 [place] # (Auto) 0.4 Eos # (Auto) 0.1 Baso # (Auto) 0.1 Immature Gran # (Auto) 0.02 H Absolute Nucleated RBC 0.02 H Immature Gran % 0 Nucleated RBC % 0 Sodium 134 L Potassium 3.6 Chloride 94 L Carbon Dioxide 25.9 Anion Gap 14 BUN 20 Creatinine 4.4 H* D Estim Creat Clear Calc 14.5 L eGFR 11 L* BUN/Creatinine Ratio 5 L Glucose 141 H Calculated Osmolality 272 L Calcium 9.8 Corrected Calcium 9.8 Phosphorus 4.4 Magnesium 2.1 Total Bilirubin 0.6 AST 70 H ALT 86 H Alkaline Phosphatase 175 H Total Protein 6.9 Albumin 4.0 Globulin 2.9 Albumin/Globulin Ratio 1.4 Quality Measures Quality Measures VTE prophylaxis Advance care planning discussed with:: other Assessment & Plan Assessment Current Active Medications: Generic Name Dose Route Start Last Admin Trade Name Freq PRN Reason Stop Dose Admin Apixaban 2.5 mg 07/22/24 09:00 07/24/24 08:48 Apixaban 2.5 Mg Tablet PO 08/21/24 08:59 2.5 mg BID KOTA Administration Aspirin 81 mg 07/22/24 09:00 07/24/24 08:48 Aspirin Ec 81 Mg Tabec PO 08/21/24 08:59 81 mg QDAY KOTA Administration Benzonatate 100 mg 07/21/24 11:42 07/26/24 19:45 Benzonatate 100 Mg Capsule PO 08/20/24 11:41 100 mg Q8HR PRN Administration COUGH Protocol Dextrose 25 ml 07/20/24 15:46 Dextrose 50%-Water Inj 50 Ml Syringe IV 08/19/24 15:45 Q15MIN PRN BG 50-70 responsive npo pt Dextrose 50 ml 07/20/24 15:46 07/21/24 07:46 Dextrose 50%-Water Inj 50 Ml Syringe IV 08/19/24 15:45 50 ml Q15MIN PRN Administration BG <50 OR BG <70 & pt unresponsive Glucagon 1 mg 07/20/24 15:46 Glucagon Inj 1 Mg Vial IM Q15MIN PRN BG <70, and no IV access Guaifenesin/Dextromethorphan 1 each 07/20/24 16:08 Guaifenesin/Dm Tablet PO 08/19/24 16:07 Q4HR PRN COUGH Protocol Albumin Human 25 gm in 100 mls @ 100 mls/min 07/20/24 17:18 07/27/24 13:32 Albuminar-25 Ivpb IV 100 mls/min PRN PRN Administration DIALYSIS Piperacillin/Tazobactam/Dextrose 2.25 gm in 50 mls @ 100 mls/hr 07/23/24 06:00 07/27/24 05:08 Zosyn IV 07/30/24 05:59 12.5 mls/hr Q8HR KOTA Administration Albumin Human 12.5 gm in 50 mls @ 50 mls/hr 07/27/24 15:26 Albuminar-25 Ivpb IV 07/27/24 16:25 X1 ONE Insulin Human Lispro 0 unit 07/20/24 17:00 07/27/24 11:30 Insulin Lispro (Admelog) 1 Unit/0.01 Ml Unit SC 08/19/24 16:59 2 unit ACHS KOTA Administration Protocol Insulin Human Lispro 5 unit 07/20/24 17:00 07/21/24 08:09 Insulin Lispro (Admelog) 1 Unit/0.01 Ml Unit SC 08/19/24 16:59 Not Given ACHS KOTA Ipratropium Agency 0.5 mg 07/20/24 19:00 07/27/24 13:25 Ipratropium Rt 0.5 Mg/ 2.5 Ml Nebu INH 08/19/24 18:59 Not Given Q6HRRT KOTA Levalbuterol HCl 0.63 mg 07/21/24 10:00 07/27/24 13:25 Levalbuterol Rt 0.63 Mg/3 Ml Nebu INH 08/20/24 09:59 Not Given Q6HRRT KOTA Levothyroxine Sodium 50 mcg 07/22/24 06:00 07/27/24 05:08 Levothyroxine Sodium 25 Mcg Tablet PO 08/21/24 05:59 50 mcg ACBR KOTA Administration Melatonin 3 mg 07/21/24 00:29 07/26/24 20:11 Melatonin 3 Mg Tablet PO 08/20/24 20:59 3 mg HS PRN Administration SLEEPLESSNESS Metoprolol Succinate 50 mg 07/27/24 21:00 Metoprolol Succinate Xl 25 Mg Tabcr PO 08/26/24 20:59 HS KOTA Midodrine 10 mg 07/27/24 22:00 Midodrine 5 Mg Tablet PO 08/26/24 21:59 TID KOTA Pantoprazole Sodium 40 mg 07/24/24 08:55 07/27/24 08:24 Pantoprazole Inj 40 Mg Vial IV 08/23/24 08:54 40 mg QDAY KOTA Administration Polyethylene Glycol 17 gm 07/20/24 15:45 07/27/24 08:24 Polyethylene Glycol 17 Gm Packet PO 08/19/24 15:44 17 gm QDAY KOTA Administration Promethazine HCl/Dextromethorphan 5 ml 07/24/24 10:29 07/25/24 23:52 Promethazine/Dm Syrup 5 Ml Dose PO 08/23/24 10:28 5 ml Q6HR PRN Administration COUGH OR CONGESTION Protocol Sennosides 1 tab 07/20/24 15:41 Senna Tablet PO 08/19/24 15:40 QDAY PRN CONSTIPATION Protocol Plan Patient is a 68-year-old female with a past medical history of hypertension, diabetes mellitus type 2 insulin-dependent, CAD, CHF HFpEF 60-65%, ESRD (MWF), Atrial Fibrillation on Eliquis and history of renal cell carcinoma s/p Left nephrectomy (2022) who was admitted on who was admitted for acute chf exacerbation, pneumonia, and Atrial Fibrilation w/ RVR, rate controlled now, and Lower GI bleed. #Hypotension #ESRD (Tuesday) Patient has a past medical history of dialysis likely secondary to nephrectomy from renal cell carcinoma (2022). Inpatient dialysis on 07/20/2024, Dr. Ventura consulted, when sanjuanita was admitted as she was feeling unwell. Patient will continue to recieve dialysis in patient. Next scheduled session on 07/25/2024-->3UF (W). Additional dialysis schedule on 07/26/2024, no fluid removed secondary to lower blood pressure. Resume regular dialysis schedule on 07/27/2024. 07/27/2024-Dialysis STOPPED secondary to hypotension. Patient MAP of 30. Albumin bags started. Midodrine increased to TID plus additional dose ordered prior to rapid. Hypotension likely secondary to Golytle and dialysis. Plan Midodrine 10 mg TID and albumin Dialysis as per patient's home schedule Renally dose medication Avoid nephrotoxins Phosphorus improved Follow-up with phosphate consider restarting the Sevelamer, based on nephrology recommendations Consult Nephrology, Appreciate Recommendations, Dr. Ventura #Atrial fibrillation with RVR #Atrial Fibrillation Patient has a past medical history of atrial fibrillation. Home medication of amiodarone 400 twice daily and digoxin 125 mcg daily. Currently holding amiodarone twice daily given elevated TSH as it can cause hyper or hypothyroidism. Pending digoxin levels. Pending final recommendations from cardiology. Second EKG ordered, to confirm A-fib with RVR. RVR likely triggered by pneumonia, CHF exacerbation and lack of dialysis completion. 07/27/2024-patient experienced rapid during dialysis for MAP of 30 with a systolic blood pressure in 40s. Cardiology updated, stopped Metoprolol. START DIGOXIN. EKG on 07/27/2024 noted for Afib w/ rvr Plan -07/27/2024 Digoxin 0.25 mg X 1 at 17:39, followed by Digoxin 0.25 23:30 -07/29/2024 Digoxin 0.125 to start on Tuesday and then every other day -Continue Metoprolol Succinate 50 mg HS, stopped -Cardiology Consulted, Dr. Ring, appreciate recommendations. #Community-acquired Pneumonia likely GPC Patient presented with increased cough for the past 3 weeks that has been productive. Likely send secondary to viral superimposed bacteria given bilateral component. Likely gram-positive cocci suggest strep pneumoniae. Cocci less likely. PE cannot be ruled out as wells criteria 6 points (16% of PE in the ED). Venous U/S of Lower extremity Negative. IL less likely given no st elevation on EKG but troponins are slighlty elevated at 0.12. Following. No chest pain. COVID flu negative. MRSA negative 07/21/2024 Gram Stain: Epithelial Cells, WBC 1. no organisms seen. Sputum Culture Mixed Plan Ceftriaxone 1 g (07/20/2024)--Zosyn 07/23/2024 for dull coverage of UTI ESBL Azithromycin 500 daily x3 days, completed Consider 2nd Cxr if symptoms worsen with increased work of breathing overnight Chest physio Cough syrup CBC CMP #Urinary tract infection, complicated Patient presented with a positive UA showing positive esterase, positive WBCs and +1 bacteria. Past medical history of UTIs. Dysuria positive. Negative for suprapubic tenderness. Culture positive for ESBL, patient symptomatic with burning urination Plan -Zosyn 07/23/2024 Day 4 #Acute CHF exacerbation #HFpEF 35 to 40% #Acute Hypoxic Respirtory Failure, resolved #Elevated troponin Has a past medical history of CHF. No Lasix noted for patient. Preserved ejection fraction of 35 to 40% on 07/20/2024. Pulmonary pressure noted 62 mmHg. Patient patient scheduled for dialysis today, reevaluate tomorrow's fluid status. Patient still produces some urine. Positive Orthopnea. Positive Paroxsymal Orthopnea. Requires several pillows to sleep. Wheelchair bound. Lower Pedal edema noted, improved. Lower extremity wound noted-wound care. BNP 1261. Prominent vascular congestion on cxr. Patient produces minimal urine. Elevated troponin on admission, likely NSTEMI II given demand ischemia as there are no ST elevations. NYHA Class: IV Cardiology recommended working towards GDMT outpatient due to soft BP. Patient successfully weaned off O2. Plan: -Metoprolol Succinate 50 HS -Patinet produces minimla urine, no lasix at this time. -K>4 and Mg >2, caution-patient is dialysis. Monitor closely. -Fluid Restriction and Sodium Restriction 2 g per day -Daily Weights, Strict Ins and Outs, Fluid Striction (1800 ml), Sodium Restriction 2 grams per day -wound care -Cardiology Consult, appreciate recommendations. Hypothyroidism Patient presented with a TSH level of 118.25 and a T4 of 0.46 and 1.7 T3. Levothyroxine started 25 mcg p.o. before meals. Medication induced versus euthyroidism versus myxedema coma (less likely). Second TSH 87.56 on 07/21/2024. Plan Levothyroxine 50 mcg p.o. before meals #Diabetes mellitus type 2 insulin-dependent #Hypoglycemic episode, resolved. Past medical history of diabetes mellitus with Lantus 40 units daily. Previous A1c on 04/07/2023 showed 5%. Glucose on admission 199. Patient experienced a hypoglycemic episode this morning despite having home Lantus reduced by 50% on admission. Stopped Lantus. Stopped scheduled Lispro. Keep sliding scale on. Average glucose 128 and A1c 6.1 Plan Sliding scale ACHS Bedside sugar checks Q6hrs NPO Currently #Hyperlipidemia #CAD Home medication atorvastatin. Currently holding Lipid Cholesterol 69 L, LDL 24, HDL 34; unable to calculate ASCVD given low cholesterol Plan Follow AST's ALT's Consider restarting Atorvastatin on discharge. Holding Atorvastatin #Hypertension Home medication of metoprolol tartrate 25 mg BID as home medication-->currently on Metoprolol Succinate 50 mg PO HS. Plan -Metoprolol Tartrate 25 mg BID D/C -Metoprolol Succinate 50 mg PO HS-->BP & CHF GDMT-->Stopped on 07/27/2024 # Elevated transaminitis, secondary hepatitis A and C+, improving #Lower GI bleed, stable #Anemia normocytic Plan for colonoscopy for lower GI bleed recorded positive FOBT. Given hepatitis A, likely contributing to lower GI bleed possible soft bowel movements reported by patient in the morning. Malignancy cannot be ruled out versus diverticulitis. Plan -GoLytely-still on first jug, STOPPED. Patient did not complete jug as instructed. refused NG tube -Colonoscopy as outpatient -GI consult, Dr. Krishnamurthy appreciate recommendations -Update SNF, drug abuse social worker. Health Maintenance: Disp: Telemetry FEN: Clear Liquid-->Transition patient back to peptic ulcer diet/soft foods and advance as tolerated by patient DVT: holding Eliquis given lower GI bleed. Resume after colonoscopy. Lower pedal edema no compression device. Code: Full code - The patient's plan was discussed with attending Dr. Ohara and senior residents Dr. Winston Lugo MD PGY1 Internal Medicine Attending Provider Attestation/Addendum I attest that I was physically present for the evaluation, physical examination, lab and imaging review of the patient with the residents. I discussed the case with the residents and agree with the findings and plans of care as documented above. Patient has been unable to drink her GoLytely and has not been clear for colonoscopy. Colonoscopy yesterday was canceled as well. Her vitals are stable, saturating well on 2 L nasal cannula. Lab results also continue to be stable except for kidney function. Patient is scheduled for dialysis today. Hemoglobin continues to be stable. Discussed with GI, recommended outpatient follow-up with GI and outpatient colonoscopy. Patient was planned for discharge this morning but she had a rapid response called this evening due to low blood pressure during dialysis. Received albumin, 250 cc normal saline bolus with improvement in blood pressure. Increased midodrine dosing from 10 twice daily to 3 times daily. Dialysis was not completed. We will cancel her discharge and monitor her vitals closely. America Ohara MD
--- NOTE | 2024-07-27 15:49 | PD.RESEVENT ---
Documentation for date of: 07/27/24 Event Note Event Note: Rapid response called at approximately 3:15 PM Rapid response called for 47/ MAP of 30. Patient was alert and oriented x 3, able to protect airway. Patient was having increased work of breathing, RR 33, saturating well on nasal cannula 1 L, SpO2 of 100%. Patient denied headaches or blurry vision. Patient stated she was having right-sided chest pain and pleuritic chest pain, chest pain likely musculoskeletal as it worsened with palpation. Midodrine ordered prior to rapid, administered during rapid. Dialysis stopped. Intervention: Hold metoprolol, midodrine increased to 10 mg 3 times daily, stop dialysis, albumin 25 g x 1, normal saline 2 to 50 mL x 1, EKG, troponins,, follow-up with cardiology. EKG showed atrial fibrillation, heart rate of 132, A-fib with RVR. Hypotension likely secondary to Golytle and Dialysis. - The patient's plan was discussed with attending Dr. Ohara and senior residents Dr. Winston Lugo MD PGY1 Internal Medicine
[2024-07-27] MEDS: ACETAMINOPHEN 325 MG TABLET 650 MG PO (16:33)
[2024-07-27 17:42] LABS: Troponin I 0.026 ng/mL (0.0-0.045)
[2024-07-27] MEDS: DIGOXIN 0.125 MG TABLET 0.25 MG PO (18:27)
--- NOTE | 2024-07-27 18:41 | PC.NURSE ---
1515- patient is in dialysis,dialysis nurse called rapid response for low blood pressure, dr. mederos is aware.
--- NOTE | 2024-07-27 18:43 | PC.NURSE ---
patient complaining of acid reflux, patient keeps burping, called dr. mederos and made aware.
[2024-07-27] MEDS: MG HYD/AL HYD/SIME (Maalox Reg) SUSP 30 ML UDC PO (18:49)
[2024-07-27] MEDS: APIXABAN 2.5 MG TABLET PO (21:19)
[2024-07-27] MEDS: MELATONIN 3 MG TABLET PO (21:19)
[2024-07-28] VITALS (14 sets, daily range): BP systolic 92–116; BP diastolic 59–82; PULSE 68–121; RESP 16–28; TEMP 35.8–36.1; O2SAT 90–100; BMI 34.2
[2024-07-28] MEDS: DIGOXIN 0.125 MG TABLET 0.25 MG PO (00:14)
[2024-07-28] MEDS: LEVALBUTEROL RT 0.63 MG/3 ML NEBU INH ×4 (00:20→19:07)
[2024-07-28] MEDS: IPRATROPIUM RT 0.5 MG/ 2.5 ML NEBU INH ×4 (00:20→19:07)
[2024-07-28] MEDS: PIPER/TAZO 2.25 GM 2.25 GM/50 ML BAG IV ×3 (05:21→21:13)
[2024-07-28] MEDS: MIDODRINE 5 MG TABLET 10 MG PO ×3 (05:21→21:16)
[2024-07-28] MEDS: LEVOTHYROXINE SODIUM 25 MCG TABLET 50 MCG PO (05:21)
[2024-07-28 05:32] LABS: Basophils % (Auto) 0 % (0-2.5); Eosinophils % (Auto) 0 % (0-10); Hematocrit 29.5 % (36.0-46.0); Hemoglobin 9.5 g/dL (12.0-16.0); Immature Granulocytes % (Auto) 1 % (0-0); Immature Granulocytes Auto 0.06 Thou/mm3 (0.00-0.00); Lymphocytes # (Auto) 0.7 Thou/mm3 (1.0-4.8); Lymphocytes % (Auto) 7 % (10-50); Mean Corpuscular HGB Conc 32.2 g/dl (31.0-37.0); Mean Corpuscular Hemoglobin 31.5 pg (25.0-35.0); Mean Corpuscular Volume 98 fL (80-100); Monocytes # (Auto) 0.6 Thou/mm3 (0.0-0.8); Monocytes % (Auto) 6 % (0-12); Neutrophils # (Auto) 8.2 Thou/mm3 (1.8-7.7); Neutrophils % (Auto) 86 % (37-80); Nucleated Red Blood Cell # 0.06 Thou/mm3 (0.00-0.00); Nucleated Red Blood Cell % 1 /100 WBC (0); Platelet Count 170 Thou/mm3 (140-440); Red Blood Count 3.02 Miln/mm3 (4.00-5.20); White Blood Count 9.5 Thou/mm3 (3.6-11.0)
[2024-07-28 06:31] LABS: Alanine Aminotransferase 85 U/L (10-49); Albumin, Serum 4.3 gm/dL (3.4-4.8); Albumin/Globulin Ratio 1.5 (1.2-2.2); Alkaline Phosphatase 160 U/L (46-116); Anion Gap 20 (7-16); Aspartate Amino Transferase 109 U/L (0-34); BUN/Creatinine Ratio 5 Ratio (12-20); Bilirubin,Total 0.9 mg/dL (0.3-1.2); Blood Urea Nitrogen 22 mg/dL (9-23); Calcium 10.2 mg/dL (8.3-10.6); Calcium (Corrected) 10.2 mg/dL (8.5-10.1); Carbon Dioxide 21.6 mMol/L (20.0-31.0); Chloride 94 mMol/L (98-107); Creatinine (Component) 4.6 mg/dL (0.6-1.3); Estimated Creatinine Clearance 15.1 mL/min (>60); Globulin 2.8 gm/dL (2.3-3.5); Glucose 132 mg/dL (74-106); Magnesium 2.3 mg/dL (1.6-2.6); Osmolality,Calculated 277 (275-295); Potassium 4.4 mMol/L (3.4-5.1); Sodium 136 mMol/L (136-145); Total Protein 7.1 gm/dL (5.7-8.2); eGFR 10 See Note
--- NOTE | 2024-07-28 08:03 | ESPR_ITS ---
Documentation for date of: 07/28/24 Subjective Subjective Interval history: Ms. Nguyễn is a 68-year-old who is well-known to me with a past medical history significant for hypertension, diabetes mellitus type 2 insulin- dependent, CAD, CHF HFpEF 60-65%, ESRD (MWF), Atrial Fibrillation on Eliquis and history of renal cell carcinoma s/p Left nephrectomy (2022) has been having significant fluid overload and sometimes receiving 4 times weekly dialysis presented to the emergency department with weakness, shortness of breath and high fevers. In the emergency department she was diagnosed with extensive bilateral pneumonia and also severe pulmonary vascular congestion. EKG showed A-fib with RVR. Labs showed WBC 5.2, hemoglobin 12.5, platelets 152. Sodium 132, potassium 3.6, BUN 28, creatinine 4.6, blood sugar 199, calcium 9.6, AST 65, ALT 44, alk phos 201, troponin 0.12, BNP 06/13/1959, albumin 4, TSH 118, Pro-Devon 0.43, urinalysis shows significant amount of blood and 1+ bacteria. Did level 0.4. Hepatitis STUART positive, hep C positive Admitted for pneumonia, acute chf exacerbation, and A-fib RVR, UTI Medication given in the emergency room Lasix 40 mg x 1, nitroglycerin, cefepime, morphine, aspirin 325. Nephrology consultation requested in view of need for dialysis. Patient currently on dialysis 07/28/2024 patient currently seen in telemetry. Admitted with hypoxic respiratory failure-with pneumonia, fluid overload. Still having significant shortness of breath and edema. Patient had dialysis yesterday. Had fluctuations in blood pressure. Had to terminate dialysis. Continue with antibiotics. Plan of care discussed with primary team. Labs and meds reviewed Review of Systems Review of Systems Narrative Review of Systems: Patient today seems to be very tired. Did not want to talk much. Complaining of coughing. Denies any chest pain. No nausea, vomiting. Exam Vital Signs Temp Pulse Resp BP Pulse Ox O2 Del Method O2 Flow Rate 35.9 C L 103 H 20 92/59 L 100 Nasal Cannula 2 07/28/24 04:00 07/28/24 07:31 07/28/24 07:31 07/28/24 05:21 07/28/24 07:31 07/28/24 04:00 07/28/24 07:31 Narrative Exam GENERAL APPEARANCE: Patient currently seen in telemetry. Sick looking NECK: Neck supple, no JVD or bruit CARDIOVASCULAR: Heart regular, no murmurs LUNGS/CHEST: Bilateral crackles ABDOMEN: Soft, nontender, nondistended. No masses. Normal bowel sounds. EXTREMITIES: Significant edema in the legs SKIN: patient has significant ecchymosis/bruises. +AVF MUSCULOSKELETAL: In bed NEUROLOGICAL : Alert and awake Objective Labs 07/28/24 04:50 07/28/24 04:50 Labs: Laboratory Results - last 24 hr 07/27/24 07/28/24 16:47 04:50 WBC 9.5 D RBC 3.02 L Hgb 9.5 L Hct 29.5 L MCV 98 MCH 31.5 MCHC 32.2 RDW Std Deviation 57.0 H Plt Count 170 Neut % (Auto) 86 H Lymph % (Auto) 7 L [place] % (Auto) 6 Eos % (Auto) 0 Baso % (Auto) 0 Neut # (Auto) 8.2 H Lymph # (Auto) 0.7 L [place] # (Auto) 0.6 Eos # (Auto) 0.0 Baso # (Auto) 0.0 Immature Gran # (Auto) 0.06 H Absolute Nucleated RBC 0.06 H Immature Gran % 1 H Nucleated RBC % 1 H Sodium 136 Potassium 4.4 D Chloride 94 L Carbon Dioxide 21.6 Anion Gap 20 H BUN 22 Creatinine 4.6 H* Estim Creat Clear Calc 15.1 L eGFR 10 L* BUN/Creatinine Ratio 5 L Glucose 132 H Calculated Osmolality 277 Calcium 10.2 Corrected Calcium 10.2 H Phosphorus 5.0 Magnesium 2.3 Total Bilirubin 0.9 AST 109 H ALT 85 H Alkaline Phosphatase 160 H Troponin I 0.026 Total Protein 7.1 Albumin 4.3 Globulin 2.8 Albumin/Globulin Ratio 1.5 Digoxin 1.0 Assessment & Plan Additional Assessment & Plan Additional Plan: 67 y/o female patient with significant medical history for ESRD on HD (MWF), DM2, HTN, CAD, Afib on Eliquis, CHF and left renal neoplasm s/p nephrectomy (on 05/14/23) BIBA to ED for shortness of breath, fever . nephrology was consulted due to patient's ESRD. #ESRD on hemodialysis # Left Nephrectomy- Renal neoplasm Patient did receive dialysis yesterday. -Follow up CBC and CMP # Pneumonia, hypoxic respiratory failure-on antibiotics # Hypothyroidism --add levothyroxine #DM -Accu-Cheks, sliding scale, diabetic diet #Afib-patient used to be on Eliquis #CAD// CHF--cardiology was consulted Plan of care discussed with primary team
[2024-07-28] MEDS: APIXABAN 2.5 MG TABLET PO ×2 (08:48→20:47)
[2024-07-28] MEDS: PANTOPRAZOLE INJ 40 MG VIAL IV (08:48)
[2024-07-28 08:51] LABS: Base Excess, Venous -3 (-3-3); O2 Saturation, Venous 100 % (96-97); PCO2, Venous 28 mmHg (36-56); PO2, Venous 155 mmHg (15-58); pH, Venous 7.46 (7.33-7.66)
--- NOTE | 2024-07-28 10:34 | PC.NURSE ---
Patient complaining of sob, moved from 1L to 6L NC, pain 9/10 in abdomen, Dr. Dozier notified.
--- NOTE | 2024-07-28 10:35 | XR_ITS ---
Examination: AP chest single view Technique one AP portable upright chest single view Exam date and time: July 28, 2024 10:41 AM Comparison July 20, 2024 Indications: Hypoxia today Findings: Mild to moderate CHF Enlarged cardiac contour with prominent vascular congestion Perihilar edema Extensive pneumonia at the lung bases Moderate to large bilateral pleural effusions Prominent osteopenia Old deformity left clavicle Impression: Mild to moderate CHF Extensive pneumonia at the lung bases
--- NOTE | 2024-07-28 11:55 | PC.NURSE ---
pt refused pt care and did not want me to change her. LUCAS Melissa was made aware
--- NOTE | 2024-07-28 14:35 | ESPR_ITS ---
Documentation for date of: 07/28/24 Subjective Subjective Interval history: Patient seen and examined at bedside. Patient had no events overnight. Patient continues to complain of shortness of breath and cough. Patient oxygen had to be increased to 10 L nasal cannula due to hypoxia. Chest x-ray was ordered. Case discussed with cardiology. Exam Vital Signs Temp Pulse Resp BP Pulse Ox O2 Del Method O2 Flow Rate 96.9 F 68 20 104/69 100 Nasal Cannula 2 07/28/24 12:00 07/28/24 14:19 07/28/24 14:19 07/28/24 14:17 07/28/24 14:19 07/28/24 12:00 07/28/24 14:19 Narrative Exam General Appearance: Alert & Oriented X3 HEENT: PERRLA, at/nc Cardio: RRR, S1-S2, no murmurs Lungs: improved crackles. Mild wheezing on right pulmonary anderosn. Abdomen: Mid-tenderness, Non-distended, Normal Reactive Bowel Sounds Neuro: Alert, cooperative, oriented to person, place, and time. Speech clear. CN grossly intact. Upper motor strength 5/5 and Lower motor strength 5/5. Sensation Objective Labs 07/29/24 05:08 07/29/24 05:08 Labs: Laboratory Results - last 24 hr 07/27/24 07/28/24 07/28/24 16:47 04:50 08:37 WBC 9.5 D RBC 3.02 L Hgb 9.5 L Hct 29.5 L MCV 98 MCH 31.5 MCHC 32.2 RDW Std Deviation 57.0 H Plt Count 170 Neut % (Auto) 86 H Lymph % (Auto) 7 L [place] % (Auto) 6 Eos % (Auto) 0 Baso % (Auto) 0 Neut # (Auto) 8.2 H Lymph # (Auto) 0.7 L [place] # (Auto) 0.6 Eos # (Auto) 0.0 Baso # (Auto) 0.0 Immature Gran # (Auto) 0.06 H Absolute Nucleated RBC 0.06 H Immature Gran % 1 H Nucleated RBC % 1 H VBG pH 7.46 VBG pCO2 28 L VBG pO2 155 H VBG O2 Sat ([place]) 100 H VBG Base Excess -3 Sodium 136 Potassium 4.4 D Chloride 94 L Carbon Dioxide 21.6 Anion Gap 20 H BUN 22 Creatinine 4.6 H* Estim Creat Clear Calc 15.1 L eGFR 10 L* BUN/Creatinine Ratio 5 L Glucose 132 H Calculated Osmolality 277 Calcium 10.2 Corrected Calcium 10.2 H Phosphorus 5.0 Magnesium 2.3 Total Bilirubin 0.9 AST 109 H ALT 85 H Alkaline Phosphatase 160 H Troponin I 0.026 Total Protein 7.1 Albumin 4.3 Globulin 2.8 Albumin/Globulin Ratio 1.5 Digoxin 1.0 ABG Interpretation ABG results: 07/28/24 08:37 VBG pH 7.46 VBG pCO2 28 L VBG pO2 155 H VBG Base Excess -3 Quality Measures Quality Measures VTE prophylaxis Advance care planning discussed with:: patient Assessment & Plan Assessment Current Active Medications: Generic Name Dose Route Start Last Admin Trade Name Freq PRN Reason Stop Dose Admin Acetaminophen 650 mg 07/27/24 16:15 07/27/24 16:33 Acetaminophen 325 Mg Tablet PO 08/26/24 16:12 650 mg Q4HR PRN Administration mild pain 1-3 or Fever >100.4 Al Hydrox/Mg Hydrox/Simethicone 30 ml 07/27/24 18:41 07/27/24 18:49 Mg Hyd/Al Hyd/Alfredo (Maalox Reg) Susp 30 Ml Udc PO 08/26/24 18:40 30 ml QID PRN Administration UPSET STOMACH/INDIGESTION Apixaban 2.5 mg 07/22/24 09:00 07/28/24 08:48 Apixaban 2.5 Mg Tablet PO 08/21/24 08:59 2.5 mg BID KOTA Administration Aspirin 81 mg 07/22/24 09:00 07/24/24 08:48 Aspirin Ec 81 Mg Tabec PO 08/21/24 08:59 81 mg QDAY KOTA Administration Benzonatate 100 mg 07/21/24 11:42 07/26/24 19:45 Benzonatate 100 Mg Capsule PO 08/20/24 11:41 100 mg Q8HR PRN Administration COUGH Protocol Dextrose 25 ml 07/20/24 15:46 Dextrose 50%-Water Inj 50 Ml Syringe IV 08/19/24 15:45 Q15MIN PRN BG 50-70 responsive npo pt Dextrose 50 ml 07/20/24 15:46 07/21/24 07:46 Dextrose 50%-Water Inj 50 Ml Syringe IV 08/19/24 15:45 50 ml Q15MIN PRN Administration BG <50 OR BG <70 & pt unresponsive Digoxin 0.125 mg 07/29/24 08:00 Digoxin 0.125 Mg Tablet PO 08/28/24 07:59 Q48H KOTA Glucagon 1 mg 07/20/24 15:46 Glucagon Inj 1 Mg Vial IM Q15MIN PRN BG <70, and no IV access Guaifenesin/Dextromethorphan 1 each 07/20/24 16:08 Guaifenesin/Dm Tablet PO 08/19/24 16:07 Q4HR PRN COUGH Protocol Albumin Human 25 gm in 100 mls @ 100 mls/min 07/20/24 17:18 07/27/24 15:10 Albuminar-25 Ivpb IV 100 mls/min PRN PRN Administration DIALYSIS Piperacillin/Tazobactam/Dextrose 2.25 gm in 50 mls @ 100 mls/hr 07/23/24 06:00 07/28/24 14:17 Zosyn IV 07/30/24 05:59 100 mls/hr Q8HR KOTA Administration Insulin Human Lispro 0 unit 07/20/24 17:00 07/28/24 11:17 Insulin Lispro (Admelog) 1 Unit/0.01 Ml Unit SC 08/19/24 16:59 Not Given ACHS KOTA Protocol Insulin Human Lispro 5 unit 07/20/24 17:00 07/21/24 08:09 Insulin Lispro (Admelog) 1 Unit/0.01 Ml Unit SC 08/19/24 16:59 Not Given ACHS KOTA Ipratropium Brantley 0.5 mg 07/20/24 19:00 07/28/24 14:18 Ipratropium Rt 0.5 Mg/ 2.5 Ml Nebu INH 08/19/24 18:59 0.5 mg Q6HRRT KOTA Administration Levalbuterol HCl 0.63 mg 07/21/24 10:00 07/28/24 14:18 Levalbuterol Rt 0.63 Mg/3 Ml Nebu INH 08/20/24 09:59 0.63 mg Q6HRRT KOTA Administration Levothyroxine Sodium 50 mcg 07/22/24 06:00 07/28/24 05:21 Levothyroxine Sodium 25 Mcg Tablet PO 08/21/24 05:59 50 mcg ACBR KOTA Administration Melatonin 3 mg 07/21/24 00:29 07/27/24 21:19 Melatonin 3 Mg Tablet PO 08/20/24 20:59 3 mg HS PRN Administration SLEEPLESSNESS Metoprolol Succinate 50 mg 07/27/24 21:00 Metoprolol Succinate Xl 25 Mg Tabcr PO 08/26/24 20:59 HS KOTA Midodrine 10 mg 07/27/24 22:00 07/28/24 14:17 Midodrine 5 Mg Tablet PO 08/26/24 21:59 10 mg TID KOTA Administration Pantoprazole Sodium 40 mg 07/24/24 08:55 07/28/24 08:48 Pantoprazole Inj 40 Mg Vial IV 08/23/24 08:54 40 mg QDAY KOTA Administration Polyethylene Glycol 17 gm 07/20/24 15:45 07/28/24 08:48 Polyethylene Glycol 17 Gm Packet PO 08/19/24 15:44 Not Given QDAY KOTA Promethazine HCl/Dextromethorphan 5 ml 07/24/24 10:29 07/25/24 23:52 Promethazine/Dm Syrup 5 Ml Dose PO 08/23/24 10:28 5 ml Q6HR PRN Administration COUGH OR CONGESTION Protocol Sennosides 1 tab 07/20/24 15:41 Senna Tablet PO 08/19/24 15:40 QDAY PRN CONSTIPATION Protocol Plan Patient is a 68-year-old female with a past medical history of hypertension, diabetes mellitus type 2 insulin-dependent, CAD, CHF HFpEF 60-65%, ESRD (MWF), Atrial Fibrillation on Eliquis and history of renal cell carcinoma s/p Left nephrectomy (2022) who was admitted on who was admitted for acute chf exacerbation, pneumonia, and Atrial Fibrilation w/ RVR, rate controlled now, and Lower GI bleed. #Acute CHF exacerbation #HFpEF 35 to 40% #Acute Hypoxic Respirtory Failure, resolved #Elevated troponin Has a past medical history of CHF. No Lasix noted for patient. Preserved ejection fraction of 35 to 40% on 07/20/2024. Pulmonary pressure noted 62 mmHg. Patient patient scheduled for dialysis today, reevaluate tomorrow's fluid status. Patient still produces some urine. Positive Orthopnea. Positive Paroxsymal Orthopnea. Requires several pillows to sleep. Wheelchair bound. Lower Pedal edema noted, improved. Lower extremity wound noted-wound care. BNP 1261. Prominent vascular congestion on cxr. Patient produces minimal urine. Elevated troponin on admission, likely NSTEMI II given demand ischemia as there are no ST elevations. Plan: -hold Metoprolol Succinate -start digoxin 0.25mcg daily -Cardiology Consult, appreciate recommendations. -wean of o2 -CXR ordered #Hypotension #ESRD (Tuesday) Patient has a past medical history of dialysis likely secondary to nephrectomy from renal cell carcinoma (2022). Inpatient dialysis on 07/20/2024, Dr. Ventura consulted, when sanjuanita was admitted as she was feeling unwell. Patient will continue to recieve dialysis in patient. Next scheduled session on 07/25/2024-->3UF (W). Additional dialysis schedule on 07/26/2024, no fluid removed secondary to lower blood pressure. Resume regular dialysis schedule on 07/27/2024. 07/27/2024-Dialysis STOPPED secondary to hypotension. Patient MAP of 30. Albumin bags started. Midodrine increased to TID plus additional dose ordered prior to rapid. Hypotension likely secondary to [place] and dialysis. Plan Midodrine 10 mg TID and albumin Dialysis as per patient's home schedule Renally dose medication Avoid nephrotoxins Phosphorus improved Follow-up with phosphate consider restarting the Sevelamer, based on nephrology recommendations Consult Nephrology, Appreciate Recommendations, Dr. Ventura #Atrial fibrillation with RVR #Atrial Fibrillation Patient has a past medical history of atrial fibrillation. Home medication of amiodarone 400 twice daily and digoxin 125 mcg daily. Currently holding amiodarone twice daily given elevated TSH as it can cause hyper or hypothyroidism. Pending digoxin levels. Pending final recommendations from cardiology. Second EKG ordered, to confirm A-fib with RVR. RVR likely triggered by pneumonia, CHF exacerbation and lack of dialysis completion. 07/27/2024-patient experienced rapid during dialysis for MAP of 30 with a systolic blood pressure in 40s. Cardiology updated, stopped Metoprolol. START DIGOXIN. EKG on 07/27/2024 noted for Afib w/ rvr Plan -07/27/2024 Digoxin 0.25 mg X 1 at 17:39, followed by Digoxin 0.25 23:30 -07/29/2024 Digoxin 0.125 to start on Je and then every other day -Continue Metoprolol Succinate 50 mg HS, stopped -Cardiology Consulted, Dr. Ring, appreciate recommendations. #Community-acquired Pneumonia likely GPC Patient presented with increased cough for the past 3 weeks that has been productive. Likely send secondary to viral superimposed bacteria given bilateral component. Likely gram-positive cocci suggest strep pneumoniae. Cocci less likely. PE cannot be ruled out as wells criteria 6 points (16% of PE in the ED). Venous U/S of Lower extremity Negative. [place] less likely given no st elevation on EKG but troponins are slighlty elevated at 0.12. Following. No chest pain. COVID flu negative. MRSA negative 07/21/2024 Gram Stain: Epithelial Cells, WBC 1. no organisms seen. Sputum Culture Mixed Plan Ceftriaxone 1 g (07/20/2024)--Zosyn 07/23/2024 for dull coverage of UTI ESBL Azithromycin 500 daily x3 days, completed Consider 2nd Cxr if symptoms worsen with increased work of breathing overnight Chest physio Cough syrup CBC CMP #Urinary tract infection, complicated Patient presented with a positive UA showing positive esterase, positive WBCs and +1 bacteria. Past medical history of UTIs. Dysuria positive. Negative for suprapubic tenderness. Culture positive for ESBL, patient symptomatic with burning urination Plan -Zosyn 07/23/2024 Day 4 Hypothyroidism Patient presented with a TSH level of 118.25 and a T4 of 0.46 and 1.7 T3. Levothyroxine started 25 mcg p.o. before meals. Medication induced versus euthyroidism versus myxedema coma (less likely). Second TSH 87.56 on 07/21/2024. Plan: -Levothyroxine 50 mcg p.o. before meals #Diabetes mellitus type 2 insulin-dependent #Hypoglycemic episode, resolved. A1c 6.1 Plan Sliding scale ACHS Bedside sugar checks Q6hrs NPO Currently #Hyperlipidemia #CAD Home medication atorvastatin. Currently holding Lipid Cholesterol 69 L, LDL 24, HDL 34; unable to calculate ASCVD given low cholesterol Plan Follow AST's ALT's Consider restarting Atorvastatin on discharge. Holding Atorvastatin # Elevated transaminitis, secondary hepatitis A and C+, improving #Lower GI bleed, stable #Anemia normocytic Plan for colonoscopy for lower GI bleed recorded positive FOBT. Given hepatitis A, likely contributing to lower GI bleed possible soft bowel movements reported by patient in the morning. Malignancy cannot be ruled out versus diverticulitis. Plan -GoLytely-still on first jug, STOPPED. Patient did not complete jug as instructed. refused NG tube -Colonoscopy as outpatient -GI consult, Dr. 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 Health Maintenance: Disp: Telemetry FEN: Clear Liquid-->Transition patient back to peptic ulcer diet/soft foods and advance as tolerated by patient DVT: holding Eliquis given lower GI bleed. Resume after colonoscopy. Lower pedal edema no compression device. Code: Full code - Patient's care was discussed with my attending physician, Dr. Mayda Everett MD Internal Medicine PGY-3 Attending Provider Attestation/Addendum I attest that I was physically present for the evaluation, physical examination, lab and imaging review of the patient with the residents. I discussed the case with the residents and agree with the findings and plans of care as documented above. At bedside today, patient complained of mild abdominal pain, she was having a bowel movement. Her oxygen demand remained high with 10 L/min at the time of examination. Continues to be on IV antibiotics. Blood pressure improved compared to yesterday. Chest x-ray was obtained, shows basilar pneumonia. We will continue to try and wean down on oxygen. We will add incentive spirometry. America Ohara MD
--- NOTE | 2024-07-28 15:28 | PD.IMPROG ---
Documentation for date of: 07/28/24 Subjective Subjective Interval history: Slight drop in hemoglobin and hematocrit to 9.5 and 29.5 No signs of an active bleeding Colonoscopy was canceled because patient extremely uncooperative for drinking the GoLytely and refused NGT Exam Vital Signs Temp Pulse Resp BP Pulse Ox O2 Del Method O2 Flow Rate 96.9 F 68 20 104/69 100 Nasal Cannula 2 07/28/24 12:00 07/28/24 14:19 07/28/24 14:19 07/28/24 14:17 07/28/24 14:19 07/28/24 12:00 07/28/24 14:19 Constitutional Comments: Alert oriented Routine Respiratory Exam Comments: Normal to auscultation Routine Abdominal Exam Comments: Soft nontender Objective Labs 07/28/24 04:50 07/28/24 04:50 Labs: Laboratory Results - last 24 hr 07/27/24 07/28/24 07/28/24 16:47 04:50 08:37 WBC 9.5 D RBC 3.02 L Hgb 9.5 L Hct 29.5 L MCV 98 MCH 31.5 MCHC 32.2 RDW Std Deviation 57.0 H Plt Count 170 Neut % (Auto) 86 H Lymph % (Auto) 7 L [place] % (Auto) 6 Eos % (Auto) 0 Baso % (Auto) 0 Neut # (Auto) 8.2 H Lymph # (Auto) 0.7 L [place] # (Auto) 0.6 Eos # (Auto) 0.0 Baso # (Auto) 0.0 Immature Gran # (Auto) 0.06 H Absolute Nucleated RBC 0.06 H Immature Gran % 1 H Nucleated RBC % 1 H VBG pH 7.46 VBG pCO2 28 L VBG pO2 155 H VBG O2 Sat ([place]) 100 H VBG Base Excess -3 Sodium 136 Potassium 4.4 D Chloride 94 L Carbon Dioxide 21.6 Anion Gap 20 H BUN 22 Creatinine 4.6 H* Estim Creat Clear Calc 15.1 L eGFR 10 L* BUN/Creatinine Ratio 5 L Glucose 132 H Calculated Osmolality 277 Calcium 10.2 Corrected Calcium 10.2 H Phosphorus 5.0 Magnesium 2.3 Total Bilirubin 0.9 AST 109 H ALT 85 H Alkaline Phosphatase 160 H Troponin I 0.026 Total Protein 7.1 Albumin 4.3 Globulin 2.8 Albumin/Globulin Ratio 1.5 Digoxin 1.0 Impressions Impression: # Anemia blood loss stable Advance diet as tolerated ABG Interpretation ABG results: 07/28/24 08:37 VBG pH 7.46 VBG pCO2 28 L VBG pO2 155 H VBG Base Excess -3 Assessment & Plan A&P Narrative # Rectal bleeding # FOBT positive # Posthemorrhagic anemia Plan Clear liquid diet GoLytely prep Consent obtained for fiberoptic colonoscopy with possible biopsy possible therapeutic intervention under intravenous moderate sedation Other medical problems include # End-stage renal disease on hemodialysis MWF # Atrial fibrillation rate controlled on Eliquis # Coronary artery disease stable angina # Systolic congestive heart failure # Diabetes mellitus type 2 # Essential hypertension # Renal cell carcinoma status post left nephrectomy Thank you once again for the opportunity to participate in the care of this patient Time Spent With Patient Time: Total time spent is greater than 50% in coordination of care (as documented) at patient's floor/unit and/or counseling patient:
[2024-07-28] MEDS: INSULIN LISPRO (AdmeLOG) 1 UNIT/0.01 ML UNIT SC ×2 (18:00→20:47)
--- NOTE | 2024-07-28 19:34 | PC.NURSE ---
Patient having cont sob, moved to oxymask 8L, Dr. Dozier notified
--- NOTE | 2024-07-28 20:00 | PD.IMPROG ---
Documentation for date of: 07/29/24 Subjective Subjective Interval history: Patient seen and examined at the bedside. Heart rate is well-controlled around 100-120 bpm on telemetry. Patient continues to be hypoxic today and is on oxygen via nasal cannula 2 L. Patient did have an episode of atrial fibrillation with RVR up to 150 bpm on 07/27/2024 Digoxin was started for the patient with to 50 mcg x 2 doses for a total of 100 mcg as the patient was on dialysis. Maintenance dose of digoxin also started with 0.25 mcg every other day from tomorrow. Check digoxin level in 7 days Will hold off on the amiodarone given her abnormal thyroid function test with signs and symptoms of myxedema. Hold off on the metoprolol XL as the patient is hypotensive. Patient did not have any of the session of dialysis as the patient continues to be mildly hypotensive. Keep potassium in the normal range between 3.5-5 and avoid hypokalemia and hyperkalemia to avoid any kind of dig toxicity as the patient is also on hemodialysis. Discussed with primary team to talk to endocrinology regarding increasing the dose of levothyroxine given her overall presentation Continue to monitor on telemetry. Exam Vital Signs Temp Pulse Resp BP Pulse Ox O2 Del Method O2 Flow Rate 97.3 F 80 21 H 152/73 H 91 L Room Air 2 07/29/24 16:00 07/29/24 16:00 07/29/24 16:00 07/29/24 16:00 07/29/24 16:00 07/29/24 16:00 07/29/24 13:06 Narrative Exam General: AAOx3, NAD, Lying in bed when examined, pleasant obese woman HEENT: Moist mucous membranes, conjunctiva clear, EOMI, PERRLA, poor dentition (does not wear dentures) Cardiovascular: S1, S2, radial pulses +2 bilat, RRR Pulmonary: Crackles heard diffusely in lung anderson L lower lobe GI: No tenderness to light or deep palpitation, no guarding, rigidity, rebound tenderness or distension Extremities: Pitting edema +3 bilat in LE Neuro: AAOx3, no focal motor or sensory deficits in the UE or LE bilat Psych: Cooperative Objective Labs 07/29/24 05:08 07/29/24 05:08 Labs: Laboratory Results - last 24 hr 07/29/24 07/29/24 07/29/24 05:00 05:08 09:28 WBC 8.2 RBC 2.92 L Hgb 9.3 L Hct 28.0 L MCV 96 MCH 31.8 MCHC 33.2 RDW Std Deviation 55.1 H Plt Count 169 Neut % (Auto) 81 H Lymph % (Auto) 11 [place] % (Auto) 7 Eos % (Auto) 0 Baso % (Auto) 0 Neut # (Auto) 6.6 Lymph # (Auto) 0.9 L [place] # (Auto) 0.6 Eos # (Auto) 0.0 Baso # (Auto) 0.0 Immature Gran # (Auto) 0.05 H Absolute Nucleated RBC 0.05 H Immature Gran % 1 H Nucleated RBC % 1 H Puncture Site Right Radial ABG pH 7.49 H ABG pCO2 35 ABG pO2 69 L ABG HCO3 27 H ABG O2 Saturation 95 ABG Base Excess 3 Oxygen Liter Flow 4 Sodium 136 Potassium 3.6 D Chloride 96 L Carbon Dioxide 27.3 Anion Gap 13 BUN 27 H Creatinine 5.6 H* D Estim Creat Clear Calc 12.3 L eGFR 8 L* BUN/Creatinine Ratio 5 L Glucose 145 H Calculated Osmolality 280 Lactic Acid Calcium 9.7 Corrected Calcium 10.3 H Phosphorus 4.8 Magnesium 2.2 Total Bilirubin 0.6 AST 166 H ALT 119 H Alkaline Phosphatase 126 H D Ammonia B-Natriuretic Peptide Total Protein 5.7 Albumin 3.2 L D Globulin 2.5 Albumin/Globulin Ratio 1.3 TSH Free T4 Digoxin 1.2 07/29/24 09:39 WBC RBC Hgb Hct MCV MCH MCHC RDW Std Deviation Plt Count Neut % (Auto) Lymph % (Auto) [place] % (Auto) Eos % (Auto) Baso % (Auto) Neut # (Auto) Lymph # (Auto) [place] # (Auto) Eos # (Auto) Baso # (Auto) Immature Gran # (Auto) Absolute Nucleated RBC Immature Gran % Nucleated RBC % Puncture Site ABG pH ABG pCO2 ABG pO2 ABG HCO3 ABG O2 Saturation ABG Base Excess Oxygen Liter Flow Sodium Potassium Chloride Carbon Dioxide Anion Gap BUN Creatinine Estim Creat Clear Calc eGFR BUN/Creatinine Ratio Glucose Calculated Osmolality Lactic Acid 1.6 Calcium Corrected Calcium Phosphorus Magnesium Total Bilirubin AST ALT Alkaline Phosphatase Ammonia < 10 L B-Natriuretic Peptide > 3280 H* Total Protein Albumin Globulin Albumin/Globulin Ratio TSH 31.69 H D Free T4 0.60 L Digoxin ABG Interpretation ABG results: 07/28/24 07/29/24 08:37 09:28 ABG pH 7.49 H ABG pCO2 35 ABG pO2 69 L ABG HCO3 27 H ABG O2 Saturation 95 ABG Base Excess 3 VBG pH 7.46 VBG pCO2 28 L VBG pO2 155 H VBG Base Excess -3 Assessment & Plan A&P Chelo Izaguirre is a 67 y/o female from [facility] with a past medical history of DM type II, HTN, ESRD on HD MWF, CAD, CHF, atrial fibrillation on Eliquis, left renal neoplasm s/p nephrectomy who is admitted for Afib w/RVR. #? GI bleed Hemoglobin around 10, FOBT positive recently Patient is on GoLytely prep, still not finished prep, refusing NG tube at this time Plan: ? 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 Continue to hold off on the amiodarone. Patient blood pressure was also soft and was hypotensive. Patient was on metoprolol XL 50 mg once daily. Digoxin also was stopped during this admission initially. Patient was being prepped for possible colonoscopy with greatly over the last couple of days but patient has not been able to drink the complete fluids. Given the GoLytely prep which can also cause severe electrolyte abnormalities, stopping of the amiodarone as well as the digoxin and the dialysis which could also cause significant fluid shifts patient probably reverted back into atrial fibrillation with RVR. Stopped metoprolol, started on digoxin renal dosing and continue to hold on amiodarone. Plan: Continue Eliquis 5 mg twice daily if no other procedures planned Heart rate is well-controlled around 100-120 bpm on telemetry. Patient continues to be hypoxic today and is on oxygen via nasal cannula 2 L. Patient did have an episode of atrial fibrillation with RVR up to 150 bpm on 07/27/2024 Digoxin was started for the patient with to 50 mcg x 2 doses for a total of 100 mcg as the patient was on dialysis. Maintenance dose of digoxin also started with 0.25 mcg every other day from tomorrow. Check digoxin level in 7 days Will hold off on the amiodarone given her abnormal thyroid function test with signs and symptoms of myxedema. Hold off on the metoprolol XL as the patient is hypotensive. Patient did not have any of the session of dialysis as the patient continues to be mildly hypotensive. Keep potassium in the normal range between 3.5-5 and avoid hypokalemia and hyperkalemia to avoid any kind of dig toxicity as the patient is also on hemodialysis. Discussed with primary team to talk to endocrinology regarding increasing the dose of levothyroxine given her overall presentation Continue to monitor on telemetry. #History of CAD #History of chronic HFrEF with systolic dysfunction and dilated left ventricle and wall motion abnormalities #Trace pericardial effusion #Elevated troponins, NSTEMI type II, resolved Echo shows dilated left ventricle with mild global hypokinesis and moderate systolic dysfunction 35 to 40% for EF. She also has right ventricle systolic pressure of 62 and severe MAC, pleural effusion present in trace pericardial effusion. Plan: ?Continue with aspirin ?Continue with GDMT therapy as able, on metoprolol 50 XL at this point #History of type 2 diabetes #History of hypertension A1c 6.1 Plan: ? Resume home medicines when able #ESRD, on HD Tuesday #hx of L nephroectomy #Lower extremity edema Likely related due to patient not getting enough dialysis Dr. Fields sees pt, says she goes for diaylsis 4x a week Plan: ? Nephrology on consult, appreciate recs #Hypothyroidism TSH ~110, Free T4 0.46; Recheck shows TSH ~80s No hx of hypothyroidism in the past Pt's BP could be low because of this as well Hypothyroidism could be from senior living [employer] use, Will not resume Management of rest of the medical conditions as per primary team and other consultants. Thank you for the consult and allowing me to participate in the care of the patient. Cardiology will continue to follow. Orestes Dudley M.D. Interventional Cardiology Time Spent With Patient Time: Total time spent is greater than 50% in coordination of care (as documented) at patient's floor/unit and/or counseling patient:
[2024-07-29] VITALS (18 sets, daily range): BP systolic 87–152; BP diastolic 38–73; PULSE 53–118; RESP 20–96; TEMP 36–36.3; O2SAT 89–100; BMI 33.9
[2024-07-29] MEDS: LEVOTHYROXINE SODIUM 25 MCG TABLET 50 MCG PO (05:19)
[2024-07-29] MEDS: PIPER/TAZO 2.25 GM 2.25 GM/50 ML BAG IV ×3 (05:20→21:12)
[2024-07-29] MEDS: MIDODRINE 5 MG TABLET 10 MG PO ×2 (05:20→07:58)
[2024-07-29 05:44] LABS: Basophils % (Auto) 0 % (0-2.5); Eosinophils % (Auto) 0 % (0-10); Hemoglobin 9.3 g/dL (12.0-16.0); Immature Granulocytes % (Auto) 1 % (0-0); Immature Granulocytes Auto 0.05 Thou/mm3 (0.00-0.00); Lymphocytes # (Auto) 0.9 Thou/mm3 (1.0-4.8); Lymphocytes % (Auto) 11 % (10-50); Mean Corpuscular HGB Conc 33.2 g/dl (31.0-37.0); Mean Corpuscular Hemoglobin 31.8 pg (25.0-35.0); Mean Corpuscular Volume 96 fL (80-100); Monocytes # (Auto) 0.6 Thou/mm3 (0.0-0.8); Monocytes % (Auto) 7 % (0-12); Neutrophils # (Auto) 6.6 Thou/mm3 (1.8-7.7); Neutrophils % (Auto) 81 % (37-80); Nucleated Red Blood Cell # 0.05 Thou/mm3 (0.00-0.00); Nucleated Red Blood Cell % 1 /100 WBC (0); Platelet Count 169 Thou/mm3 (140-440); RDW Standard Deviation 55.1 fL (36.4-46.3); Red Blood Count 2.92 Miln/mm3 (4.00-5.20); White Blood Count 8.2 Thou/mm3 (3.6-11.0)
--- NOTE | 2024-07-29 06:06 | PC.NURSE ---
Dr. Amezquita notified bp 90/45 MAP of 60 after a scheduled dose of 10mg Midodrine. Pt is asymptomatic with no signs of distress no new order at this time Dr. Amezquita to follow up with day team.
[2024-07-29 06:19] LABS: Alanine Aminotransferase 119 U/L (10-49); Albumin, Serum 3.2 gm/dL (3.4-4.8); Albumin/Globulin Ratio 1.3 (1.2-2.2); Alkaline Phosphatase 126 U/L (46-116); Anion Gap 13 (7-16); Aspartate Amino Transferase 166 U/L (0-34); BUN/Creatinine Ratio 5 Ratio (12-20); Bilirubin,Total 0.6 mg/dL (0.3-1.2); Blood Urea Nitrogen 27 mg/dL (9-23); Calcium 9.7 mg/dL (8.3-10.6); Calcium (Corrected) 10.3 mg/dL (8.5-10.1); Carbon Dioxide 27.3 mMol/L (20.0-31.0); Chloride 96 mMol/L (98-107); Creatinine (Component) 5.6 mg/dL (0.6-1.3); Estimated Creatinine Clearance 12.3 mL/min (>60); Globulin 2.5 gm/dL (2.3-3.5); Glucose 145 mg/dL (74-106); Magnesium 2.2 mg/dL (1.6-2.6); Osmolality,Calculated 280 (275-295); Phosphorous 4.8 mg/dL (2.4-5.1); Potassium 3.6 mMol/L (3.4-5.1); Sodium 136 mMol/L (136-145); Total Protein 5.7 gm/dL (5.7-8.2); eGFR 8 See Note
[2024-07-29] MEDS: IPRATROPIUM RT 0.5 MG/ 2.5 ML NEBU INH ×3 (06:53→18:55)
[2024-07-29] MEDS: LEVALBUTEROL RT 0.63 MG/3 ML NEBU INH ×3 (06:53→18:55)
--- NOTE | 2024-07-29 07:39 | PC.NURSE ---
Notified Dr. Lugo of abd pain 04/19 and BP 98/42 and repeart 88/51. Midodrine already given at 0520. No new orders.
--- NOTE | 2024-07-29 07:44 | XR_ITS ---
Examination: Abdomen AP single view Technique: AP portable supine abdomen, single view Exam date and time: July 29, 2024 at 0817 hrs. Indications: Onset abdominal pain today Findings: The film does not include the lower pelvis Mildly air distended colon No obstruction No free air Heavy vascular calcification Prominent osteopenia The film is rotated also LPO Impression: Limited study Mild colonic ileus
--- NOTE | 2024-07-29 07:49 | PD.NEPHPROG ---
Documentation for date of: 07/29/24 Subjective Subjective Interval history: Ms. Nguyễn is a 68-year-old who is well-known to me with a past medical history significant for hypertension, diabetes mellitus type 2 insulin-dependent, CAD, CHF HFpEF 60-65%, ESRD (MWF), Atrial Fibrillation on Eliquis and history of renal cell carcinoma s/p Left nephrectomy (2022) has been having significant fluid overload and sometimes receiving 4 times weekly dialysis presented to the emergency department with weakness, shortness of breath and high fevers. In the emergency department she was diagnosed with extensive bilateral pneumonia and also severe pulmonary vascular congestion. EKG showed A-fib with RVR. Labs showed WBC 5.2, hemoglobin 12.5, platelets 152. Sodium 132, potassium 3.6, BUN 28, creatinine 4.6, blood sugar 199, calcium 9.6, AST 65, ALT 44, alk phos 201, troponin 0.12, BNP 06/13/1959, albumin 4, TSH 118, Pro-Devon 0.43, urinalysis shows significant amount of blood and 1+ bacteria. Did level 0.4. Hepatitis STUART positive, hep C positive Admitted for pneumonia, acute chf exacerbation, and A-fib RVR, UTI Medication given in the emergency room Lasix 40 mg x 1, nitroglycerin, cefepime, morphine, aspirin 325. Nephrology consultation requested in view of need for dialysis. Patient currently on dialysis 07/29/2024 patient currently seen in telemetry. Admitted with hypoxic respiratory failure-with pneumonia, fluid overload. Still having significant shortness of breath and edema. Had fluctuations in blood pressure during dialysis yesterday. Had to terminate dialysis. Continue with antibiotics. Plan of care discussed with primary team. Chest x-ray showed pleural effusion and fluid overload. Persistent hypotension noted. Currently on 45 mg of midodrine. Noted severe hypothyroidism. Also on metoprolol for A-fib. Had a long conversation with at bedside-he wants to continue with all aggressive measures including full CODE STATUS. Labs and meds reviewed. Overall prognosis remains guarded.. Review of Systems Review of Systems Narrative Review of Systems: CONSTITUTIONAL: Patient complains of fatigue and weakness HEENT: Denies any visual disturbances or hearing problems. CARDIOVASCULAR: Patient denies any chest pain. c/o shortness of breath, swelling in the lower extremities. PULMONARY: Patient c/o shortness of breath, cough. GASTROINTESTINAL: Patient denies any abdominal pain, constipation, nausea, vomiting, diarrhea. GENITOURINARY: Patient denies any urinary symptoms of burning or frequency or hematuria, denies any form in the urine. SKIN: Patient has significant bruises and ecchymosis from Eliquis MUSCULOSKELETAL: ++ Arthritis NEUROLOGICAL: Denies any neurological problems of strokes, seizures or confusion. Denies any memory problems. PSYCHIATRIC: History of anxiety Exam Vital Signs Temp Pulse Resp BP Pulse Ox O2 Del Method O2 Flow Rate 36.2 C 89 21 H 100/57 L 100 Room Air 4 07/29/24 04:00 07/29/24 06:54 07/29/24 06:54 07/29/24 06:35 07/29/24 06:54 07/29/24 04:00 07/29/24 06:54 Narrative Exam GENERAL APPEARANCE: Patient currently seen in telemetry. Sick looking. at bedside NECK: Neck supple, no JVD or bruit CARDIOVASCULAR: Heart regular, no murmurs LUNGS/CHEST: Bilateral crackles ABDOMEN: Soft, nontender, nondistended. No masses. Normal bowel sounds. EXTREMITIES: Significant edema in the legs SKIN: patient has significant ecchymosis/bruises. +AVF MUSCULOSKELETAL: In bed NEUROLOGICAL : Alert and awake Objective Labs 07/29/24 05:08 07/29/24 05:08 Labs: Laboratory Results - last 24 hr 07/28/24 07/29/24 08:37 05:08 WBC 8.2 RBC 2.92 L Hgb 9.3 L Hct 28.0 L MCV 96 MCH 31.8 MCHC 33.2 RDW Std Deviation 55.1 H Plt Count 169 Neut % (Auto) 81 H Lymph % (Auto) 11 [place] % (Auto) 7 Eos % (Auto) 0 Baso % (Auto) 0 Neut # (Auto) 6.6 Lymph # (Auto) 0.9 L [place] # (Auto) 0.6 Eos # (Auto) 0.0 Baso # (Auto) 0.0 Immature Gran # (Auto) 0.05 H Absolute Nucleated RBC 0.05 H Immature Gran % 1 H Nucleated RBC % 1 H VBG pH 7.46 VBG pCO2 28 L VBG pO2 155 H VBG O2 Sat ([place]) 100 H VBG Base Excess -3 Sodium 136 Potassium 3.6 D Chloride 96 L Carbon Dioxide 27.3 Anion Gap 13 BUN 27 H Creatinine 5.6 H* D Estim Creat Clear Calc 12.3 L eGFR 8 L* BUN/Creatinine Ratio 5 L Glucose 145 H Calculated Osmolality 280 Calcium 9.7 Corrected Calcium 10.3 H Phosphorus 4.8 Magnesium 2.2 Total Bilirubin 0.6 AST 166 H ALT 119 H Alkaline Phosphatase 126 H D Total Protein 5.7 Albumin 3.2 L D Globulin 2.5 Albumin/Globulin Ratio 1.3 ABG Interpretation ABG results: 07/28/24 08:37 VBG pH 7.46 VBG pCO2 28 L VBG pO2 155 H VBG Base Excess -3 Assessment & Plan Additional Assessment & Plan Additional Plan: 67 y/o female patient with significant medical history for ESRD on HD (MWF), DM2, HTN, CAD, Afib on Eliquis, CHF and left renal neoplasm s/p nephrectomy (on 05/14/23) BIBA to ED for shortness of breath, fever . nephrology was consulted due to patient's ESRD. #ESRD on hemodialysis # Left Nephrectomy- Renal neoplasm Due to history of hypotension-not decided to hold off on now dialysis today. Next dialysis scheduled for tomorrow. Spoke to wants to continue with full CODE STATUS. -Follow up CBC and CMP # Pneumonia, hypoxic respiratory failure-on antibiotics # Hypothyroidism --add levothyroxine #DM -Accu-Cheks, sliding scale, diabetic diet #Afib-patient used to be on Eliquis #CAD// CHF--cardiology was consulted Plan of care discussed with primary team--- noted they consulted ICU team.
[2024-07-29] MEDS: INSULIN LISPRO (AdmeLOG) 1 UNIT/0.01 ML UNIT SC ×3 (07:57→21:12)
[2024-07-29] MEDS: DICYCLOMINE 10 MG CAPSULE PO (07:58)
[2024-07-29 08:21] LABS: Digoxin 1.2 ng/mL (0.8-2.0)
--- NOTE | 2024-07-29 08:41 | XR_ITS ---
Examination: AP chest single view Technique: AP portable upright chest single view Exam date and time: July 29, 2024 0905 hrs. Comparison July 28, 2024 Findings: Prominent CHF Mild to moderate enlargement cardiac contour, prominent vascular congestion with perihilar edema Consider superimposed pneumonia at the lung bases Large bilateral pleural effusions Prominent osteopenia Impression: Prominent CHF Consider superimposed pneumonia at the lung bases Large bilateral pleural effusions
[2024-07-29] MEDS: ALBUMIN HUMAN 25% IVPB 12.5 GM/50 ML BTL IV (08:56)
[2024-07-29] MEDS: PANTOPRAZOLE INJ 40 MG VIAL IV (08:56)
[2024-07-29] MEDS: DIGOXIN 0.125 MG TABLET PO (08:57)
[2024-07-29] MEDS: APIXABAN 2.5 MG TABLET PO ×2 (08:58→21:13)
[2024-07-29] MEDS: ASPIRIN EC 81 MG TABEC PO (08:58)
[2024-07-29] MEDS: SIMETHICONE 80 MG CHEW PO (09:14)
[2024-07-29 09:37] LABS: Base Excess 3 (-3-3); HCO3 27 mEq/L (20-26); Inspired O2, VO2 Liters 4 L/min; O2 Saturation 95 % (91-98); PCO2 35 mmHg (32.0-48.0); PO2 69 mmHg (83-108); pH, Arterial 7.49 (7.35-7.45)
[2024-07-29 09:38] LABS: Allen Test Not Performed; Puncture Site Right Radial
[2024-07-29 09:51] LABS: Lactate (Lactic Acid) 1.6 mMol/L (0.4-2.0)
[2024-07-29 10:12] LABS: Ammonia < 10 uMol/L (11-32); B-Type Natriuretic Peptide > 3280 pg/mL (0-100)
--- NOTE | 2024-07-29 12:21 | PD.IMPROG ---
Documentation for date of: 07/29/24 Subjective Subjective Interval history: Hemoglobin hematocrit 9.1 and 28.0 Patient has been uncooperative for GoLytely prep so procedure was canceled Exam Vital Signs Temp Pulse Resp BP Pulse Ox O2 Del Method O2 Flow Rate 96.8 F 90 21 H 88/51 L 92 L Room Air 4 07/29/24 08:00 07/29/24 08:57 07/29/24 08:00 07/29/24 08:57 07/29/24 08:00 07/29/24 08:00 07/29/24 06:54 Objective Labs 07/29/24 05:08 07/29/24 05:08 Labs: Laboratory Results - last 24 hr 07/29/24 07/29/24 07/29/24 05:00 05:08 09:28 WBC 8.2 RBC 2.92 L Hgb 9.3 L Hct 28.0 L MCV 96 MCH 31.8 MCHC 33.2 RDW Std Deviation 55.1 H Plt Count 169 Neut % (Auto) 81 H Lymph % (Auto) 11 [place] % (Auto) 7 Eos % (Auto) 0 Baso % (Auto) 0 Neut # (Auto) 6.6 Lymph # (Auto) 0.9 L [place] # (Auto) 0.6 Eos # (Auto) 0.0 Baso # (Auto) 0.0 Immature Gran # (Auto) 0.05 H Absolute Nucleated RBC 0.05 H Immature Gran % 1 H Nucleated RBC % 1 H Puncture Site Right Radial ABG pH 7.49 H ABG pCO2 35 ABG pO2 69 L ABG HCO3 27 H ABG O2 Saturation 95 ABG Base Excess 3 Oxygen Liter Flow 4 Sodium 136 Potassium 3.6 D Chloride 96 L Carbon Dioxide 27.3 Anion Gap 13 BUN 27 H Creatinine 5.6 H* D Estim Creat Clear Calc 12.3 L eGFR 8 L* BUN/Creatinine Ratio 5 L Glucose 145 H Calculated Osmolality 280 Lactic Acid Calcium 9.7 Corrected Calcium 10.3 H Phosphorus 4.8 Magnesium 2.2 Total Bilirubin 0.6 AST 166 H ALT 119 H Alkaline Phosphatase 126 H D Ammonia B-Natriuretic Peptide Total Protein 5.7 Albumin 3.2 L D Globulin 2.5 Albumin/Globulin Ratio 1.3 Digoxin 1.2 07/29/24 09:39 WBC RBC Hgb Hct MCV MCH MCHC RDW Std Deviation Plt Count Neut % (Auto) Lymph % (Auto) [place] % (Auto) Eos % (Auto) Baso % (Auto) Neut # (Auto) Lymph # (Auto) [place] # (Auto) Eos # (Auto) Baso # (Auto) Immature Gran # (Auto) Absolute Nucleated RBC Immature Gran % Nucleated RBC % Puncture Site ABG pH ABG pCO2 ABG pO2 ABG HCO3 ABG O2 Saturation ABG Base Excess Oxygen Liter Flow Sodium Potassium Chloride Carbon Dioxide Anion Gap BUN Creatinine Estim Creat Clear Calc eGFR BUN/Creatinine Ratio Glucose Calculated Osmolality Lactic Acid 1.6 Calcium Corrected Calcium Phosphorus Magnesium Total Bilirubin AST ALT Alkaline Phosphatase Ammonia < 10 L B-Natriuretic Peptide > 3280 H* Total Protein Albumin Globulin Albumin/Globulin Ratio Digoxin Impressions Impression: # Anemia blood loss Patient has been uncooperative for a colonoscopy prep Probably outpatient invasive GI workup if she wishes so ABG Interpretation ABG results: 07/28/24 07/29/24 08:37 09:28 ABG pH 7.49 H ABG pCO2 35 ABG pO2 69 L ABG HCO3 27 H ABG O2 Saturation 95 ABG Base Excess 3 VBG pH 7.46 VBG pCO2 28 L VBG pO2 155 H VBG Base Excess -3 Assessment & Plan A&P Narrative # Rectal bleeding # FOBT positive # Posthemorrhagic anemia Plan Clear liquid diet GoLytely prep Consent obtained for fiberoptic colonoscopy with possible biopsy possible therapeutic intervention under intravenous moderate sedation Other medical problems include # End-stage renal disease on hemodialysis MWF # Atrial fibrillation rate controlled on Eliquis # Coronary artery disease stable angina # Systolic congestive heart failure # Diabetes mellitus type 2 # Essential hypertension # Renal cell carcinoma status post left nephrectomy Thank you once again for the opportunity to participate in the care of this patient Time Spent With Patient Time: Total time spent is greater than 50% in coordination of care (as documented) at patient's floor/unit and/or counseling patient:
--- NOTE | 2024-07-29 12:50 | ESPR_ITS ---
<Statement entered by Brandon Montero MD - 07/29/24 16:20> Patient was seen and examined at the bedside this morning. Patient was consistently hypotensive and was lethargic to stimuli however opening her eyes and waxing and waning. We curb sided with ICU team in regards to patient's low blood pressure and recommended to start IV levothyroxine 100 mcg x 1 and ordered stat TSH and T4. Will also give stress dose hydrocortisone 100 mg x 1.. Licensed Land Surveyor recommended to curbside with principal mechanical engineer, Dr. English in terms of her hypothyroidism as there was a concern for A-fib. Neurophysiologist recommended to continue albumin and restrict fluid and possible dialysis tomorrow as she will not tolerate dialysis with soft blood pressure. Lactic acid was normal. Will continue with digoxin. Hemoglobin was stable at 9.3. She is currently saturating above 90% on 4 L nasal cannula. ICU team is less likely suspicious for sepsis/infection due to lactic acid being normal and resolution of infection. They recommended they will take the patient if MAP drops below 60. They suspect that most likely metoprolol caused peripheral vasodilation which may be the contributing factor for her low blood pressure and the drug effect will take time to wean off. Will closely monitor for blood pressure monitoring and family/ was contacted and goals of care discussion was performed. He wants to continue active management and wants to keep her full code and if she needs ICU care he was okay to proceed with it. All labs and orders were reviewed. I saw and examined the patient, and I agree with current management stated by Dr Brittney MD,PGY1. Plan of care was discussed with the attending physician and resident physician. Disclaimer: Despite multiple revisions, due to the dictation software being used, the document bellow may not be free of grammatical errors including phonetic/typographic errors. However, this does not deter from our commitment to providing health care in the patient's best interest in mind. Dr. Lauren MD, PGY 2 Documentation for date of: 07/29/24 Subjective Subjective Interval history: Overnight patient continued to be hypotensive. Patient examined at bedside. Throughout the morning patient's MAP hovered under 65 with readings of 60 and 62. An additional midodrine 10 mg x 1 given. Midodrine increased to 15 3 times daily. Albumin 25 mg x 1 given. Patient continued to complain of abdominal pain and appeared drowsy but still able to protect airway and alert and oriented x 3. KUB, chest x-ray, lactic acid, BNP, ABG all obtained. MAP improved to 65 and repeat cycle showing MAP of 67. KUB showed mild ileus. Chest x-ray should continue to show bilateral pneumonia and worsening pulmonary congestion. Patient produces very little urine and would not benefit from Lasix. BNP elevated. Lactic acid within normal limits. Nephrology updated. Cardiology updated. ICU consulted for possible admission if MAP continues to be less than 65. Levothyroxine 100 mcg x 1 and hydrocortisone 100 mg IV x 1. Digoxin to continue. Levothyroxine to be increased to 75 mcg starting tomorrow. Possible dialysis tomorrow pending blood pressure. Exam Vital Signs Temp Pulse Resp BP Pulse Ox O2 Del Method O2 Flow Rate 96.8 F 84 30 H 99/48 L 100 Room Air 5 07/29/24 12:00 07/29/24 12:00 07/29/24 12:07/29/24 12:07/29/24 12:07/29/24 12:07/29/24 12:00 Narrative Exam General Appearance: Alert & Oriented X3, well-nourished female who is lying in bed in no acute distress but drowsy but responsive to verbal command. HEENT: Skull symmetrical and atraumatic. Conjunctivae pin and moist. Pupils equal, round, reactive to light and accommodation (PERRL). External ear without lesion or discharge. Straight, nares patient, mucosa pink, no discharge. No thyroid nodule appreciated. No cervical lymphadenopathy. Cardio: Normal Rate and Rhythm with S1 and S2 heart sounds. No murmurs or extra heart sounds auscultated. No bruits on carotid auscultation. Edema +3 Lungs: Symmetric with good expansion. Chest and back non-tender. Breath sounds vesicular with crackles Abdomen: Non-tender, Non-distended, Normal Reactive Bowel Sounds Neuro: Alert, cooperative, oriented to person, place, and time. Speech clear. CN grossly intact. Upper motor strength 5/5 and Lower motor strength 5/5. Sensation intact. Objective Labs 07/30/24 04:08 07/30/24 04:08 Labs: Laboratory Results - last 24 hr 07/29/24 07/29/24 07/29/24 05:00 05:08 09:28 WBC 8.2 RBC 2.92 L Hgb 9.3 L Hct 28.0 L MCV 96 MCH 31.8 MCHC 33.2 RDW Std Deviation 55.1 H Plt Count 169 Neut % (Auto) 81 H Lymph % (Auto) 11 [place] % (Auto) 7 Eos % (Auto) 0 Baso % (Auto) 0 Neut # (Auto) 6.6 Lymph # (Auto) 0.9 L [place] # (Auto) 0.6 Eos # (Auto) 0.0 Baso # (Auto) 0.0 Immature Gran # (Auto) 0.05 H Absolute Nucleated RBC 0.05 H Immature Gran % 1 H Nucleated RBC % 1 H Puncture Site Right Radial ABG pH 7.49 H ABG pCO2 35 ABG pO2 69 L ABG HCO3 27 H ABG O2 Saturation 95 ABG Base Excess 3 Oxygen Liter Flow 4 Sodium 136 Potassium 3.6 D Chloride 96 L Carbon Dioxide 27.3 Anion Gap 13 BUN 27 H Creatinine 5.6 H* D Estim Creat Clear Calc 12.3 L eGFR 8 L* BUN/Creatinine Ratio 5 L Glucose 145 H Calculated Osmolality 280 Lactic Acid Calcium 9.7 Corrected Calcium 10.3 H Phosphorus 4.8 Magnesium 2.2 Total Bilirubin 0.6 AST 166 H ALT 119 H Alkaline Phosphatase 126 H D Ammonia B-Natriuretic Peptide Total Protein 5.7 Albumin 3.2 L D Globulin 2.5 Albumin/Globulin Ratio 1.3 Digoxin 1.2 07/29/24 09:39 WBC RBC Hgb Hct MCV MCH MCHC RDW Std Deviation Plt Count Neut % (Auto) Lymph % (Auto) [place] % (Auto) Eos % (Auto) Baso % (Auto) Neut # (Auto) Lymph # (Auto) [place] # (Auto) Eos # (Auto) Baso # (Auto) Immature Gran # (Auto) Absolute Nucleated RBC Immature Gran % Nucleated RBC % Puncture Site ABG pH ABG pCO2 ABG pO2 ABG HCO3 ABG O2 Saturation ABG Base Excess Oxygen Liter Flow Sodium Potassium Chloride Carbon Dioxide Anion Gap BUN Creatinine Estim Creat Clear Calc eGFR BUN/Creatinine Ratio Glucose Calculated Osmolality Lactic Acid 1.6 Calcium Corrected Calcium Phosphorus Magnesium Total Bilirubin AST ALT Alkaline Phosphatase Ammonia < 10 L B-Natriuretic Peptide > 3280 H* Total Protein Albumin Globulin Albumin/Globulin Ratio Digoxin ABG Interpretation ABG results: 07/28/24 07/29/24 08:37 09:28 ABG pH 7.49 H ABG pCO2 35 ABG pO2 69 L ABG HCO3 27 H ABG O2 Saturation 95 ABG Base Excess 3 VBG pH 7.46 VBG pCO2 28 L VBG pO2 155 H VBG Base Excess -3 Quality Measures Quality Measures VTE prophylaxis Advance care planning discussed with:: other Assessment & Plan Assessment Current Active Medications: Generic Name Dose Route Start Last Admin Trade Name Freq PRN Reason Stop Dose Admin Acetaminophen 650 mg 07/27/24 16:15 07/27/24 16:33 Acetaminophen 325 Mg Tablet PO 08/26/24 16:12 650 mg Q4HR PRN Administration mild pain 1-3 or Fever >100.4 Al Hydrox/Mg Hydrox/Simethicone 30 ml 07/27/24 18:41 07/27/24 18:49 Mg Hyd/Al Hyd/Alfredo (Maalox Reg) Susp 30 Ml Udc PO 08/26/24 18:40 30 ml QID PRN Administration UPSET STOMACH/INDIGESTION Apixaban 2.5 mg 07/22/24 09:00 07/29/24 08:58 Apixaban 2.5 Mg Tablet PO 08/21/24 08:59 2.5 mg BID KOTA Administration Aspirin 81 mg 07/22/24 09:00 07/29/24 08:58 Aspirin Ec 81 Mg Tabec PO 08/21/24 08:59 81 mg QDAY KOTA Administration Benzonatate 100 mg 07/21/24 11:42 07/26/24 19:45 Benzonatate 100 Mg Capsule PO 08/20/24 11:41 100 mg Q8HR PRN Administration COUGH Protocol Dextrose 25 ml 07/20/24 15:46 Dextrose 50%-Water Inj 50 Ml Syringe IV 08/19/24 15:45 Q15MIN PRN BG 50-70 responsive npo pt Dextrose 50 ml 07/20/24 15:46 07/21/24 07:46 Dextrose 50%-Water Inj 50 Ml Syringe IV 08/19/24 15:45 50 ml Q15MIN PRN Administration BG <50 OR BG <70 & pt unresponsive Digoxin 0.125 mg 07/29/24 08:00 07/29/24 08:57 Digoxin 0.125 Mg Tablet PO 08/28/24 07:59 0.125 mg Q48H KOTA Administration Glucagon 1 mg 07/20/24 15:46 Glucagon Inj 1 Mg Vial IM Q15MIN PRN BG <70, and no IV access Guaifenesin/Dextromethorphan 1 each 07/20/24 16:08 Guaifenesin/Dm Tablet PO 08/19/24 16:07 Q4HR PRN COUGH Protocol Albumin Human 25 gm in 100 mls @ 100 mls/min 07/20/24 17:18 07/27/24 15:10 Albuminar-25 Ivpb IV 100 mls/min PRN PRN Administration DIALYSIS Piperacillin/Tazobactam/Dextrose 2.25 gm in 50 mls @ 100 mls/hr 07/23/24 06:00 07/29/24 05:20 Zosyn IV 07/30/24 05:59 100 mls/hr Q8HR KOTA Administration Insulin Human Lispro 0 unit 07/20/24 17:00 07/29/24 11:41 Insulin Lispro (Admelog) 1 Unit/0.01 Ml Unit SC 08/19/24 16:59 Not Given ACHS KOTA Protocol Insulin Human Lispro 5 unit 07/20/24 17:00 07/21/24 08:09 Insulin Lispro (Admelog) 1 Unit/0.01 Ml Unit SC 08/19/24 16:59 Not Given ACHS KOTA Ipratropium [place] 0.5 mg 07/20/24 19:00 07/29/24 06:53 Ipratropium Rt 0.5 Mg/ 2.5 Ml Nebu INH 08/19/24 18:59 0.5 mg Q6HRRT KOTA Administration Levalbuterol HCl 0.63 mg 07/21/24 10:00 07/29/24 06:53 Levalbuterol Rt 0.63 Mg/3 Ml Nebu INH 08/20/24 09:59 0.63 mg Q6HRRT KOTA Administration Levothyroxine Sodium 50 mcg 07/22/24 06:00 07/29/24 05:19 Levothyroxine Sodium 25 Mcg Tablet PO 08/21/24 05:59 50 mcg ACBR KOTA Administration Melatonin 3 mg 07/21/24 00:29 07/27/24 21:19 Melatonin 3 Mg Tablet PO 08/20/24 20:59 3 mg HS PRN Administration SLEEPLESSNESS Metoprolol Succinate 50 mg 07/27/24 21:00 Metoprolol Succinate Xl 25 Mg Tabcr PO 08/26/24 20:59 HS KOTA Midodrine 15 mg 07/29/24 14:00 Midodrine 5 Mg Tablet PO 08/28/24 13:59 TID KOTA Pantoprazole Sodium 40 mg 07/24/24 08:55 07/29/24 08:56 Pantoprazole Inj 40 Mg Vial IV 08/23/24 08:54 40 mg QDAY KOTA Administration Polyethylene Glycol 17 gm 07/20/24 15:45 07/28/24 08:48 Polyethylene Glycol 17 Gm Packet PO 08/19/24 15:44 Not Given QDAY KOTA Promethazine HCl/Dextromethorphan 5 ml 07/24/24 10:29 07/25/24 23:52 Promethazine/Dm Syrup 5 Ml Dose PO 08/23/24 10:28 5 ml Q6HR PRN Administration COUGH OR CONGESTION Protocol Sennosides 1 tab 07/20/24 15:41 Senna Tablet PO 08/19/24 15:40 QDAY PRN CONSTIPATION Protocol Plan Patient is a 68-year-old female with a past medical history of hypertension, diabetes mellitus type 2 insulin-dependent, CAD, CHF HFpEF 60-65%, ESRD (MWF), Atrial Fibrillation on Eliquis and history of renal cell carcinoma s/p Left nephrectomy (2022) who was admitted on who was admitted for acute chf exacerbation, pneumonia, and Atrial Fibrilation w/ RVR, rate controlled now, and Lower GI bleed. Hypothyroidism, improved Patient presented with a TSH level of 118.25 and a T4 of 0.46 and 1.7 T3. Levothyroxine started 25 mcg p.o. before meals. Medication induced versus euthyroidism versus myxedema coma (less likely). Second TSH 87.56 on 07/21/2024. Continue TSH and Free T4 improvement Plan: -Levothyroxine 100 mcg X 1 -Cortisol 100 mg X 1 -Levothyroxine 75 mcg p.o. before meals 07/30/2024 -Free T4 #Acute CHF exacerbation #HFpEF 35 to 40% #Acute Hypoxic Respirtory Failure, resolved #Elevated troponin Has a past medical history of CHF. No Lasix noted for patient. Preserved ejection fraction of 35 to 40% on 07/20/2024. Pulmonary pressure noted 62 mmHg. Patient patient scheduled for dialysis today, reevaluate tomorrow's fluid status. Patient still produces some urine. Positive Orthopnea. Positive Paroxsymal Orthopnea. Requires several pillows to sleep. Wheelchair bound. Lower Pedal edema noted, improved. Lower extremity wound noted-wound care. BNP 1261. Prominent vascular congestion on cxr. Patient produces minimal urine. Elevated troponin on admission, likely NSTEMI II given demand ischemia as there are no ST elevations. Plan: -hold Metoprolol Succinate -start digoxin 0.25mcg daily -Follow up with digoxin levels -Cardiology Consult, appreciate recommendations. -wean of o2 -CXR ordered #Hypotension #ESRD (Tuesday) Patient has a past medical history of dialysis likely secondary to nephrectomy from renal cell carcinoma (2022). Inpatient dialysis on 07/20/2024, Dr. Ventura consulted, when sanjuanita was admitted as she was feeling unwell. Patient will continue to recieve dialysis in patient. Next scheduled session on 07/25/2024-->3UF (W). Additional dialysis schedule on 07/26/2024, no fluid removed secondary to lower blood pressure. Resume regular dialysis schedule on 07/27/2024. 07/27/2024-Dialysis STOPPED secondary to hypotension. Patient MAP of 30. Albumin bags started. Midodrine increased to TID plus additional dose ordered prior to rapid. Hypotension likely secondary to [place] and dialysis. Plan Midodrine 15 mg TID and albumin Dialysis as per patient's home schedule Renally dose medication Avoid nephrotoxins Phosphorus improved Follow-up with phosphate consider restarting the Sevelamer, based on nephrology recommendations Consult Nephrology, Appreciate Recommendations, Dr. Ventura #Atrial fibrillation with RVR #Atrial Fibrillation Patient has a past medical history of atrial fibrillation. Home medication of amiodarone 400 twice daily and digoxin 125 mcg daily. Currently holding amiodarone twice daily given elevated TSH as it can cause hyper or hypothyroidism. Pending digoxin levels. Pending final recommendations from cardiology. Second EKG ordered, to confirm A-fib with RVR. RVR likely triggered by pneumonia, CHF exacerbation and lack of dialysis completion. 07/27/2024-patient experienced rapid during dialysis for MAP of 30 with a systolic blood pressure in 40s. Cardiology updated, stopped Metoprolol. START DIGOXIN. EKG on 07/27/2024 noted for Afib w/ rvr Plan -07/29/2024 Digoxin 0.125 to start on Tuesday and then every other day -Continue Metoprolol Succinate 50 mg HS, stopped -Cardiology Consulted, Dr. Ring, appreciate recommendations. #Community-acquired Pneumonia likely GPC Patient presented with increased cough for the past 3 weeks that has been productive. Likely send secondary to viral superimposed bacteria given bilateral component. Likely gram-positive cocci suggest strep pneumoniae. Cocci less likely. PE cannot be ruled out as wells criteria 6 points (16% of PE in the ED). Venous U/S of Lower extremity Negative. [place] less likely given no st elevation on EKG but troponins are slighlty elevated at 0.12. Following. No chest pain. COVID flu negative. MRSA negative 07/21/2024 Gram Stain: Epithelial Cells, WBC 1. no organisms seen. Sputum Culture Mixed Plan Ceftriaxone 1 g (07/20/2024)--Zosyn 07/23/2024 for dull coverage of UTI ESBL Azithromycin 500 daily x3 days, completed Consider 2nd Cxr if symptoms worsen with increased work of breathing overnight Chest physio Cough syrup CBC CMP #Urinary tract infection, complicated Patient presented with a positive UA showing positive esterase, positive WBCs and +1 bacteria. Past medical history of UTIs. Dysuria positive. Negative for suprapubic tenderness. Culture positive for ESBL, patient symptomatic with burning urination Plan -Zosyn 07/23/2024 Day 4 #Diabetes mellitus type 2 insulin-dependent #Hypoglycemic episode, resolved. A1c 6.1 Plan Sliding scale ACHS Bedside sugar checks Q6hrs NPO Currently #Hyperlipidemia #CAD Home medication atorvastatin. Currently holding Lipid Cholesterol 69 L, LDL 24, HDL 34; unable to calculate ASCVD given low cholesterol Plan Follow AST's ALT's Consider restarting Atorvastatin on discharge. Holding Atorvastatin # Elevated transaminitis, secondary hepatitis A and C+, improving #Lower GI bleed, stable #Anemia normocytic Plan for colonoscopy for lower GI bleed recorded positive FOBT. Given hepatitis A, likely contributing to lower GI bleed possible soft bowel movements reported by patient in the morning. Malignancy cannot be ruled out versus diverticulitis. Plan -GoLytely-still on first jug, STOPPED. Patient did not complete jug as instructed. refused NG tube -Colonoscopy as outpatient -GI consult, Dr. Krishnamurthy appreciate recommendations -Update SNF, social secretary. Health Maintenance: Disp: Telemetry FEN: Clear Liquid-->Transition patient back to peptic ulcer diet/soft foods and advance as tolerated by patient DVT: holding Eliquis given lower GI bleed. Resume after colonoscopy. Lower pedal edema no compression device. Code: Full code - The patient's plan was discussed with attending Dr. Ohara and senior residents Dr. Lauren Lugo MD PGY1 Internal Medicine Attending Provider Attestation/Addendum I attest that I was physically present for the evaluation, physical examination, lab and imaging review of the patient with the residents. I discussed the case with the residents and agree with the findings and plans of care as documented above. At bedside this morning, patient appeared lethargic and sleepy. Was able to wake up on calling but went back to sleep right away. Her blood pressure continued to remain soft. Increased midodrine to 15mg TID, also received albumin 25gm x1. Supplemental oxygen decreased from 8L yesterday to 2L/min, saturating well. Discussed with Cotton Buyer and alicia sided with Endocrine, agreed on Levothyroxine 100 mcg IV and Hydrocortisone 100 Iv. We will trend his free T4 and increase levothyroxine dosing slowly until it comes up to normal levels. TSH and Free T4 level improving compared to previous readings. Discussed with Cardiology, we will discontinue the Metoprolol due to concern for her Blood pressure and continue with Digoxin, patient currently rate controlled. Patient planned for hemodialysis tomorrow. America Ohara MD
--- NOTE | 2024-07-29 12:57 | PC.NURSE ---
Patient BP 99/48 MAP 65, Dr. Kilpatrick notified, ICU team consulted.
[2024-07-29 13:38] LABS: Misc Send Out* See Sep Rpt
[2024-07-29] MEDS: MIDODRINE 5 MG TABLET 15 MG PO ×2 (13:53→21:13)
[2024-07-29] MEDS: HYDROCORTISONE SOD SUCC INJ 100 MG VIAL IV (13:53)
[2024-07-29] MEDS: LEVOTHYROXINE INJ 100 mCg VIAL IV (13:53)
--- NOTE | 2024-07-29 13:56 | ESCONSULT_ITS ---
<Statement entered by Shira Henriquez MD - 07/31/24 10:22> TOTAL CC TIME: 40 MIN I saw and evaluated the patient. I reviewed the resident?s note and agree with findings and plan as documented in the resident?s note. Upon my evaluation, this patient had a high probability of imminent or life- threatening deterioration due to distributive hypotension which required my direct attention, intervention, and personal management. This time is exclusive of time spent on procedures, which are documented separately if performed. bedside ECHO / IVC exam confirms that hypotension is NOT due to hypovolemia or cardiogenic shock RV is not severely dilated and pt not in resp distress - RA saturation 90% RR 15 - and PE is virtually excluded as a cause of hypotension this leaves medications (had previously been on beta blockers), dysautonomia w/ ESRD and hypothyroidism as the likely cause(s). Recommend IV synthroid 100mcg rechecking TFTs LA was within normal limits and cap refill 2 seconds Tolerating MAP of >=60 If change in clinical condition please reconsult ICU, but at this time she does not require vasopressor support. <Statement entered by Gavino Gutierrez MD - 07/29/24 21:14> Senior Resident Attestation: I supervised/discussed management plan with manager of international physician Dr. Meyer, and was involved in the care of this patient. I personally saw and examined the patient and discussed the assessment and plan with the entire medicine team, including my attending. I agree with the assessment and plan as documented. Patient's care was discussed with attending physician, Dr. Henriquez. Gavino Gutierrez MD PGY-2. HPI Data of Consult Requesting Physician: America Ohara MD Admitting Provider: Anselmo Dennis DO Attending Provider: America Ohara MD Primary Care Provider: Lorraine Ventura MD Consult Narrative Reason for consult: Hypotension History of present illness: Zina Nguyễn is 68 yr female with PMH of CHF EF 35-40%, ESRD Tuesday, history of A-fib on Eliquis presented to ED on 07/20 with chief complaint of cough and shortness of breath. She reported to have productive cough for past 3 weeks with flu like symptoms and dysuria. Flu, COVID, and cocci were negative. Labs significant for hypothyroidism TSH 118, free t4 0.46, and UA indicating UTI. She was started on metoprolol xL 50 for AFib RVR, Levothyroxine 50 mcg, and Zosyn. ICU team was consulted after she continued to exhibit difficulty in breathing while on 10L NC and hypotension. At beside she was saturating adequately 90-93%, proper capillary refill. Systolic BP in 90s. MAP has been borderline around 65 with support of midodrine 15 mg PO TID. Bedside u/s showed mildly enlarged IVC size indicating adequate volume status. No evidence of fluid in lungs. Hypotension likely due to vasodilatory effects of medication including metoprolol and hypothyroidism. Give levothyroxine [id number], cortisol [id number], and continue midodrine. No pressors indicated at this time. cc:: cc: America Ohara MD Review of Systems Constitutional Constitutional: Reports system reviewed and no additional complaints, except as documented Exam Vital Signs Temp Pulse Resp BP Pulse Ox O2 Del Method O2 Flow Rate 96.8 F 53 L 25 H 98/60 99 Room Air 2 07/29/24 12:00 07/29/24 13:53 07/29/24 13:06 07/29/24 13:53 07/29/24 13:06 07/29/24 12:00 07/29/24 13:06 Narrative Exam General Appearance: Alert & Oriented X3, no distress, laying on left side HEENT:NCAT, EOMI, enlarged neck Cardio: RRR, S1-S2, no murmurs Lungs: improved crackles. Mild wheezing on right pulmonary anderson, oxygen mask Abdomen: tenderness to palpation, Non-distended, Normal Reactive Bowel Sounds Neuro: Alert, cooperative, oriented to person, place, and time. Speech clear. CN grossly intact. Upper motor strength 5/5 and Lower motor strength 5/5. Results Labs 07/29/24 05:08 07/29/24 05:08 Labs: Short CBC 07/29/24 Range/Units 05:08 WBC 8.2 (3.6-11.0) Thou/mm3 Hgb 9.3 L (12.0-16.0) g/dL Hct 28.0 L (36.0-46.0) % Plt Count 169 (140-440) Thou/mm3 BMP 07/29/24 05:08 Sodium 136 Potassium 3.6 D Chloride 96 L Carbon Dioxide 27.3 BUN 27 H Creatinine 5.6 H* D Glucose 145 H Calcium 9.7 Liver Function 07/29/24 Range/Units 05:08 Total Bilirubin 0.6 (0.3-1.2) mg/dL AST 166 H (0-34) U/L ALT 119 H (10-49) U/L Alkaline Phosphatase 126 H D (46-116) U/L Albumin 3.2 L D (3.4-4.8) gm/dL ABG Interpretation ABG results: 07/28/24 07/29/24 08:37 09:28 ABG pH 7.49 H ABG pCO2 35 ABG pO2 69 L ABG HCO3 27 H ABG O2 Saturation 95 ABG Base Excess 3 VBG pH 7.46 VBG pCO2 28 L VBG pO2 155 H VBG Base Excess -3 Quality Measures Quality Measures VTE prophylaxis Advance care planning discussed with:: spouse Medications Home Medications and Allergies Home Medications ?Medication ?Instructions ?Recorded ?Confirmed ?Type blood sugar diagnostic (True 10/26/19 04/21/23 History Metrix Glucose Test Strip) pen needle, diabetic 29 gauge x 10/26/19 04/21/23 History 1/2 (BD Ultra-Fine Original Pen Needle) bisacodyl 10 mg rectal suppository 10 mg [place] Q72H PRN Constipation 02/27/20 05/25/23 History (Dulcolax (bisacodyl)) magnesium hydroxide 400 mg/5 mL 30 ml PO Q72H PRN Constipation 02/27/20 05/25/23 History oral suspension (Milk of Magnesia) sodium phosphates 19 gram-7 118 ml KY Q72H PRN Constipation 02/27/20 05/25/23 History gram/118 mL enema (Fleet Enema) linagliptin 5 mg tablet (Tradjenta) 5 mg PO QDAY 04/21/20 05/25/23 History aspirin 81 mg tablet,delayed 81 mg PO QDAY 08/19/21 04/21/23 History release ferrous sulfate 325 mg (65 mg 325 mg PO TID 08/19/21 05/25/23 History iron) tablet (FeroSul) magnesium oxide 400 mg PO TID 08/19/21 04/21/23 History melatonin 3 mg tablet 3 mg PO HS PRN Insomnia 08/19/21 07/21/24 History mirtazapine 15 mg tablet (Remeron) 7.5 mg PO HS 08/19/21 04/21/23 History acetaminophen 325 mg tablet 650 mg PO [id number] PRN Pain (Scale 04/21/22 05/25/23 History (Tylenol) Score 1-3) amino acids-protein hydrolysate 15 1 ea TIDWM 04/21/22 05/25/23 History gram-100 kcal/30 mL oral liquid pkt atorvastatin 40 mg tablet 40 mg PO HS 04/21/22 05/25/23 History sevelamer HCl 800 mg tablet 1,600 mg PO TIDWM 04/21/22 07/21/24 History docusate sodium 250 mg capsule 250 mg PO DAILY PRN Constipation 05/25/23 07/21/24 History glucagon 1 mg solution for 1 mg subcut 05/25/23 History injection (Glucagon Emergency Kit) ondansetron HCl 4 mg tablet 4 mg PO Q6H PRN Nausea And Vomiting 05/25/23 05/25/23 History Allergies Allergy/AdvReac Type Severity Reaction Status Date / Time adhesive Allergy Mild Redness of Verified 07/20/24 12:00 Skin adhesive tape Allergy Mild Redness of Verified 07/20/24 12:00 Skin Visit Medications Acetaminophen (Acetaminophen 325 Mg Tablet) 650 mg PO Q4HR PRN PRN Reason: mild pain 1-3 or Fever >100.4 Stop: 08/26/24 16:12 Last Admin: 07/27/24 16:33 Dose: 650 mg Al Hydrox/Mg Hydrox/Simethicone (Mg Hyd/Al Hyd/Alfredo (Maalox Reg) Susp 30 Ml Udc) 30 ml PO QID PRN PRN Reason: UPSET STOMACH/INDIGESTION Stop: 08/26/24 18:40 Last Admin: 07/27/24 18:49 Dose: 30 ml Apixaban (Apixaban 2.5 Mg Tablet) 2.5 mg PO BID [facility] Stop: 08/21/24 08:59 Last Admin: 07/29/24 08:58 Dose: 2.5 mg Aspirin (Aspirin Ec 81 Mg Tabec) 81 mg PO QDAY [facility] Stop: 08/21/24 08:59 Last Admin: 07/29/24 08:58 Dose: 81 mg Benzonatate (Benzonatate 100 Mg Capsule) 100 mg PO Q8HR PRN; Protocol PRN Reason: COUGH Stop: 08/20/24 11:41 Last Admin: 07/26/24 19:45 Dose: 100 mg Dextrose (Dextrose 50%-Water Inj 50 Ml Syringe) 25 ml IV Q15MIN PRN PRN Reason: BG 50-70 responsive npo pt Stop: 08/19/24 15:45 Dextrose (Dextrose 50%-Water Inj 50 Ml Syringe) 50 ml IV Q15MIN PRN PRN Reason: BG <50 OR BG <70 & pt unresponsive Stop: 08/19/24 15:45 Last Admin: 07/21/24 07:46 Dose: 50 ml Digoxin (Digoxin 0.125 Mg Tablet) 0.125 mg PO Q48H KOTA Stop: 08/28/24 07:59 Last Admin: 07/29/24 08:57 Dose: 0.125 mg Glucagon (Glucagon Inj 1 Mg Vial) 1 mg IM Q15MIN PRN PRN Reason: BG <70, and no IV access Guaifenesin/Dextromethorphan (Guaifenesin/Dm Tablet) 1 each PO Q4HR PRN; Protocol PRN Reason: COUGH Stop: 08/19/24 16:07 Albumin Human (Albuminar-25 Ivpb) 25 gm in 100 mls @ 100 mls/min IV PRN PRN PRN Reason: DIALYSIS Last Admin: 07/27/24 15:10 Dose: 100 mls/min Piperacillin/Tazobactam/Dextrose (Zosyn) 2.25 gm in 50 mls @ 100 mls/hr IV Q8HR KOTA Stop: 07/30/24 05:59 Last Admin: 07/29/24 05:20 Dose: 100 mls/hr Insulin Human Lispro (Insulin Lispro (Admelog) 1 Unit/0.01 Ml Unit) 0 unit SC ACHS [facility]; Protocol Stop: 08/19/24 16:59 Last Admin: 07/29/24 11:41 Dose: Not Given Insulin Human Lispro (Insulin Lispro (Admelog) 1 Unit/0.01 Ml Unit) 5 unit SC ACHS [facility] Stop: 08/19/24 16:59 Last Admin: 07/21/24 08:09 Dose: Not Given Ipratropium [place] (Ipratropium Rt 0.5 Mg/ 2.5 Ml Nebu) 0.5 mg INH Q6HRRT [facility] Stop: 08/19/24 18:59 Last Admin: 07/29/24 13:05 Dose: 0.5 mg Levalbuterol HCl (Levalbuterol Rt 0.63 Mg/3 Ml Nebu) 0.63 mg INH Q6HRRT [facility] Stop: 08/20/24 09:59 Last Admin: 07/29/24 13:05 Dose: 0.63 mg Levothyroxine Sodium (Levothyroxine Sodium 25 Mcg Tablet) 50 mcg PO ACBR [facility] Stop: 08/21/24 05:59 Last Admin: 07/29/24 05:19 Dose: 50 mcg Melatonin (Melatonin 3 Mg Tablet) 3 mg PO HS PRN PRN Reason: SLEEPLESSNESS Stop: 08/20/24 20:59 Last Admin: 07/27/24 21:19 Dose: 3 mg Metoprolol Succinate (Metoprolol Succinate Xl 25 Mg Tabcr) 50 mg PO HS [facility] Stop: 08/26/24 20:59 Midodrine (Midodrine 5 Mg Tablet) 15 mg PO TID [facility] Stop: 08/28/24 13:59 Last Admin: 07/29/24 13:53 Dose: 15 mg Pantoprazole Sodium (Pantoprazole Inj 40 Mg Vial) 40 mg IV QDAY [facility] Stop: 08/23/24 08:54 Last Admin: 07/29/24 08:56 Dose: 40 mg Polyethylene Glycol (Polyethylene Glycol 17 Gm Packet) 17 gm PO QDAY [facility] Stop: 08/19/24 15:44 Last Admin: 07/28/24 08:48 Dose: Not Given Promethazine HCl/Dextromethorphan (Promethazine/Dm Syrup 5 Ml Dose) 5 ml PO Q6HR PRN; Protocol PRN Reason: COUGH OR CONGESTION Stop: 08/23/24 10:28 Last Admin: 07/25/24 23:52 Dose: 5 ml Sennosides (Senna Tablet) 1 tab PO QDAY PRN; Protocol PRN Reason: CONSTIPATION Stop: 08/19/24 15:40 Discontinued Medications Acetaminophen (Acetaminophen 500 Mg Tablet) 500 mg PO X1 ONE Stop: 07/27/24 02:34 Last Admin: 07/27/24 02:50 Dose: 500 mg Acetaminophen (Acetaminophen 325 Mg Tablet) 650 mg PO Q4HR PRN PRN Reason: mild pain Stop: 08/26/24 16:12 Hydrocodone Bitart/Acetaminophen (Hydrocodone/Apap 5/325 Tablet) 1 tab PO X1 ONE Stop: 07/20/24 16:21 Last Admin: 07/20/24 16:23 Dose: 1 tab Apixaban (Apixaban 2.5 Mg Tablet) 5 mg PO BID [facility] Stop: 08/19/24 20:59 Last Admin: 07/21/24 20:37 Dose: 5 mg Aspirin (Aspirin 81 Mg Chew) 324 mg PO X1 ONE Stop: 07/20/24 13:28 Last Admin: 07/20/24 14:56 Dose: 324 mg Aspirin (Aspirin Ec 81 Mg Tabec) 81 mg PO X1 ONE Stop: 07/21/24 09:01 Last Admin: 07/21/24 09:00 Dose: 81 mg Azithromycin (Azithromycin 250 Mg Tablet) 500 mg PO QDAY [facility] Stop: 07/22/24 23:55 Last Admin: 07/22/24 09:10 Dose: 500 mg Dicyclomine HCl (Dicyclomine 10 Mg Capsule) 10 mg PO X1 ONE Stop: 07/29/24 07:47 Last Admin: 07/29/24 07:58 Dose: 10 mg Digoxin (Digoxin 0.125 Mg Tablet) 0.125 mg PO QDAY [facility] Stop: 08/20/24 08:59 Digoxin (Digoxin 0.125 Mg Tablet) 0.125 mg PO X1 ONE Stop: 07/21/24 09:01 Digoxin (Digoxin 0.125 Mg Tablet) 0.25 mg PO X1 ONE Stop: 07/27/24 17:40 Last Admin: 07/27/24 18:27 Dose: 0.25 mg Digoxin (Digoxin 0.125 Mg Tablet) 0.25 mg PO X1 ONE Stop: 07/27/24 23:31 Last Admin: 07/28/24 00:14 Dose: 0.25 mg Epoetin Ant (Epoetin Ant-Epbx Inj 40,000 Unit/Ml Vial (Esrd)) 10,000 unit SC X1 ONE Stop: 07/23/24 09:16 Last Admin: 07/23/24 11:39 Dose: 10,000 unit Epoetin Ant (Epoetin Ant-Epbx Inj 40,000 Unit/Ml Vial (Esrd)) 10,000 unit SC X1 ONE Stop: 07/25/24 10:01 Last Admin: 07/25/24 09:58 Dose: 10,000 unit Furosemide (Furosemide Inj 10 Mg/Ml 4ml Vial) 40 mg IVP X1 ONE Stop: 07/20/24 11:49 Last Admin: 07/20/24 12:13 Dose: 40 mg Hydrocortisone Sodium Succinate (Hydrocortisone Sod Succ Inj 100 Mg Vial) 100 mg IV X1 ONE Stop: 07/29/24 13:27 Last Admin: 07/29/24 13:53 Dose: 100 mg Azithromycin 500 mg/ Sodium (Chloride) 250 mls @ 250 mls/hr IV X1 ONE Stop: 07/20/24 14:31 Last Admin: 07/20/24 15:31 Dose: Not Given Ceftriaxone Sodium 1,000 mg/ (Sodium Chloride) 50 mls @ 100 mls/hr IV X1 ONE Stop: 07/20/24 14:01 Last Admin: 07/20/24 15:31 Dose: Not Given Cefepime HCl 2 gm/ Sodium (Chloride) 50 mls @ 100 mls/hr IV X1 ONE Stop: 07/20/24 14:15 Last Infusion: 07/20/24 16:25 Dose: Infused Vancomycin HCl 2,000 mg/ (Sodium Chloride) 500 mls @ 150 mls/hr IV X1 ONE Stop: 07/20/24 17:05 Last Admin: 07/20/24 20:26 Dose: 150 mls/hr Ceftriaxone Sodium/Dextrose (Rocephin/D5w 1gm Iv Premix) 50 mls @ 100 mls/hr IV QDAY [facility] Stop: 07/28/24 08:59 Last Admin: 07/22/24 09:10 Dose: 100 mls/hr Azithromycin 500 mg/ Sodium (Chloride) 250 mls @ 250 mls/hr IV QDAY [facility] Stop: 07/28/24 08:59 Meropenem 500 mg/ Sodium (Chloride) 50 mls @ 100 mls/hr IV Q24H [facility] Stop: 07/29/24 13:59 Meropenem 500 mg/ Sodium (Chloride) 50 mls @ 100 mls/hr IV Q24H [facility] Stop: 07/29/24 12:59 Last Admin: 07/22/24 14:51 Dose: 100 mls/hr Magnesium Sulfate (Magnesium Sulfate Ivpb) 2 gm in 50 mls @ 25 mls/hr IV X1 ONE Stop: 07/26/24 09:30 Last Admin: 07/26/24 08:03 Dose: 25 mls/hr Sodium Chloride (Ns) 250 mls @ 999 mls/hr IV .Q16M ONE Stop: 07/26/24 07:57 Last Admin: 07/26/24 08:03 Dose: 999 mls/hr Sodium Chloride (Ns) 250 mls @ 999 mls/hr IV .Q16M ONE Stop: 07/27/24 15:41 Last Admin: 07/27/24 18:29 Dose: Not Given Albumin Human (Albuminar-25 Ivpb) 12.5 gm in 50 mls @ 50 mls/hr IV X1 ONE Stop: 07/27/24 16:25 Last Admin: 07/27/24 18:29 Dose: Not Given Albumin Human (Albuminar-25 Ivpb) 12.5 gm in 50 mls @ 50 mls/hr IV X1 ONE Stop: 07/29/24 09:38 Last Admin: 07/29/24 08:56 Dose: 50 mls/hr Insulin Glargine (Insulin Glargine (Lantus) 5 Unit/0.05 Ml (Per 5 Units)) 15 unit SC [facility] Stop: 08/19/24 20:59 Last Admin: 07/20/24 20:28 Dose: 15 unit Levalbuterol HCl (Levalbuterol Rt 0.63 Mg/3 Ml Nebu) 0.31 mg INH Q6HRRT [facility] Stop: 08/19/24 18:59 Last Admin: 07/21/24 06:33 Dose: 0.31 mg Levothyroxine Sodium (Levothyroxine Sodium 25 Mcg Tablet) 25 mcg PO ACBR [facility] Stop: 08/19/24 17:34 Last Admin: 07/21/24 05:28 Dose: 25 mcg Levothyroxine Sodium (Levothyroxine Inj 100 Mcg Vial) 100 mcg IV X1 ONE Stop: 07/29/24 13:28 Last Admin: 07/29/24 13:53 Dose: 100 mcg Metoprolol Succinate (Metoprolol Succinate Xl 25 Mg Tabcr) 50 mg PO [facility] Stop: 08/19/24 20:59 Last Admin: 07/26/24 20:33 Dose: Not Given Metoprolol Succinate (Metoprolol Succinate Xl 25 Mg Tabcr) 25 mg PO [facility] Stop: 08/26/24 20:59 Metoprolol Tartrate (Metoprolol Tartrate 25 Mg Tablet) 25 mg PO BID [facility] Stop: 08/19/24 20:59 Metoprolol Tartrate (Metoprolol Tartrate Inj 1 Mg/Ml Amp 5 Ml) 5 mg IVP X1 ONE Stop: 07/20/24 15:54 Last Admin: 07/20/24 17:00 Dose: Not Given Metoprolol Tartrate (Metoprolol Tartrate Inj 1 Mg/Ml Amp 5 Ml) 2.5 mg IVP X1 ONE Stop: 07/20/24 16:13 Last Admin: 07/20/24 16:15 Dose: 2.5 mg Midodrine (Midodrine 5 Mg Tablet) 10 mg PO BID [facility] Stop: 08/26/24 08:59 Last Admin: 07/27/24 08:23 Dose: 10 mg Midodrine (Midodrine 5 Mg Tablet) 10 mg PO X1 ONE Stop: 07/27/24 14:00 Last Admin: 07/27/24 15:30 Dose: 10 mg Midodrine (Midodrine 5 Mg Tablet) 10 mg PO TID [facility] Stop: 08/26/24 21:59 Last Admin: 07/29/24 05:20 Dose: 10 mg Midodrine (Midodrine 5 Mg Tablet) 10 mg PO X1 ONE Stop: 07/29/24 07:41 Last Admin: 07/29/24 07:58 Dose: 10 mg Morphine Sulfate (Morphine Sulf Inj 10 Mg/Ml Vial) 2 mg IVP X1 ONE Stop: 07/20/24 12:19 Last Admin: 07/20/24 12:43 Dose: 2 mg Nitroglycerin (Nitroglycerin Oint 2% 1 Inch Packet) 1 inch TOP X1 ONE Stop: 07/20/24 12:19 Last Admin: 07/20/24 12:40 Dose: 1 inch Polyethylene Glycol/Electrolytes (Na Colin/Nahco3/Pacheco/Peg (Golytely) 4,000 Ml Btl) 4,000 ml PO X1 ONE Stop: 07/24/24 09:47 Last Admin: 07/24/24 10:39 Dose: 4,000 ml Potassium Chloride (Potassium Chloride 10% 20 Meq/15 Ml Udc) 20 meq PO X1 ONE Stop: 07/20/24 16:04 Last Admin: 07/20/24 17:01 Dose: Not Given Promethazine HCl (Promethazine 25 Mg Supp) 25 mg [place] Q6HR PRN PRN Reason: COUGH OR CONGESTION Stop: 08/23/24 08:49 Simethicone (Simethicone 80 Mg Chew) 80 mg PO X1 ONE Stop: 07/29/24 08:59 Last Admin: 07/29/24 09:14 Dose: 80 mg Sodium Chloride (Sodium Chloride Rt 10% 15 Ml Nebu) 5 ml INH X1 ONE Stop: 07/20/24 15:37 Last Admin: 07/20/24 20:11 Dose: Not Given Tramadol HCl (Tramadol Hcl 50 Mg Tablet) 50 mg PO Q6H PRN PRN Reason: Pain (Scale Score 4-6) Stop: 07/26/24 00:25 Last Admin: 07/23/24 03:21 Dose: 50 mg Tramadol HCl (Tramadol Hcl 50 Mg Tablet) 50 mg PO BID PRN; Protocol PRN Reason: PAIN SCALE 4-6 (Moderate Stop: 07/26/24 00:25 Last Admin: 07/25/24 23:52 Dose: 50 mg Tramadol HCl (Tramadol Hcl 50 Mg Tablet) 50 mg PO X1 ONE Stop: 07/26/24 19:54 Last Admin: 07/26/24 20:03 Dose: 50 mg Assessment & Plan Plan Patient is a 68-year-old female with a past medical history of hypertension, diabetes mellitus type 2 insulin-dependent, CAD, CHF HFpEF 60-65%, ESRD (MWF), Atrial Fibrillation on Eliquis and history of renal cell carcinoma s/p Left nephrectomy (2022) who was admitted on who was admitted for acute chf exacerbation, pneumonia, and Atrial Fibrilation w/ RVR, rate controlled now, and Lower GI bleed. CVS: #Hypotension Ddx: dialysis, hypovolemia, sepsis (underlying PNA/UTI), medication induced, cardiogenic, hypothyroidism Most likely due to vasodilatory effects of medication including metoprolol and hypothyroidism with dialysis. MAP has remained around 65, exhibiting proper capillary refill. IVC on bedside ultrasound slightly enlarged indicating adequate volume status. Hypotension most likely due to hypothyroidism in combination with metoprolol and dialysis. -continue midodrine 15 TID -levothyroxine 100mcg x1 -stress dose cortisol [id number] #Acute CHF exacerbation #HFpEF 35 to 40% #Acute Hypoxic Respirtory Failure, resolved #Elevated troponin #Hypotension #ESRD (Tuesday) #Atrial fibrillation with RVR #Atrial Fibrillation #Community-acquired Pneumonia likely GPC #Urinary tract infection, complicated #Hypothyroidism #Diabetes mellitus type 2 insulin-dependent #Hypoglycemic episode, resolved. #Hyperlipidemia #CAD # Elevated transaminitis, secondary hepatitis A and C+, improving #Lower GI bleed, stable #Anemia normocytic -as per primary care team The patient's management plan was discussed with my attending physician Dr. Henriquez and senior Dr. Gutierrez. Diana Meyer, PGY-1
[2024-07-29 14:01] LABS: Thyroid Stimulating Hormone 31.69 uIU/mL (0.55-4.78)
--- NOTE | 2024-07-29 16:08 | EVENTNT_ITS ---
<Statement entered by Brandon Montero MD - 07/29/24 16:09> I saw and examined the patient, and I agree with current management stated by Dr Brittney LEWIS,PGY1. Plan of care was discussed with the attending physician and resident physician. Disclaimer: Despite multiple revisions, due to the dictation software being used, the document bellow may not be free of grammatical errors including phonetic/typographic errors. However, this does not deter from our commitment to providing health care in the patient's best interest in mind. Dr. Lauren MD, PGY 2 Documentation for date of: 07/29/24 Event Note Event Note: Goals of care Care discussed with the patient's common-law , Tanmay, (not ) who was called back to the hospital to discuss patient's hypotension, history of CHF HFrEF, ESRD on dialysis and hypothyroidism. Patient is understanding of r epeated low blood pressure and the possibility of requiring higher level care in ICU for pressors. Patient would like to continue full CODE STATUS and if need be upgraded to ICU. If there are any changes overnight please contact Tanmay at [phone] - The patient's plan was discussed with attending Dr Fernando and senior residents Dr. Lauren Lugo MD PGY1 Internal Medicine
[2024-07-29] MEDS: MG HYD/AL HYD/SIME (Maalox Reg) SUSP 30 ML UDC PO (18:19)
--- NOTE | 2024-07-29 18:55 | PD.IMPROG ---
Documentation for date of: 07/29/24 Subjective Subjective Interval history: Patient seen and examined at the bedside. Telemetry reviewed and patient heart rate is now better controlled between 80-100 bpm Recommend to continue digoxin 125 mcg every other day and check digoxin level every 7 days. Patient continues to be hypoxic today and is oxygen via Ventimask at 10 L. Patient apparently was lethargic this morning and primary team did consult ICU as the patient is also hypotensive Patient was given levothyroxine 100 mcg x 1 and also hydrocortisone 100 mg x 1 and started on midodrine 10 mg 3 times daily for now. During my examination patient appears to be awake alert and able to answer questions but still appears to be in respiratory distress. On examination patient still continues to have significant edema and chest x-ray does show worsening bilateral pleural effusions. Patient will need dialysis and will need possible pressure support. All antihypertensives were discontinued. Discussed with the primary team again to speak with endocrinology to increase the dose of levothyroxine at least to 75 mcg once daily and 100 mcg once daily given her overall presentation of severe hypothyroidism which is contributing to her clinical status at the present point of time. Patient did not have any of the session of dialysis as the patient continues to be mildly hypotensive. Keep potassium in the normal range between 3.5-5 and avoid hypokalemia and hyperkalemia to avoid any kind of dig toxicity as the patient is also on hemodialysis. Exam Vital Signs Temp Pulse Resp BP Pulse Ox O2 Del Method O2 Flow Rate 97.3 F 80 21 H 152/73 H 91 L Room Air 2 07/29/24 16:07/29/24 16:07/29/24 16:07/29/24 16:07/29/24 16:07/29/24 16:07/29/24 13:06 Narrative Exam General: AAOx3, NAD, Lying in bed when examined, pleasant obese woman HEENT: Moist mucous membranes, conjunctiva clear, EOMI, PERRLA, poor dentition (does not wear dentures) Cardiovascular: S1, S2, radial pulses +2 bilat, RRR Pulmonary: Crackles heard diffusely in lung anderson L lower lobe, on Ventimask GI: No tenderness to light or deep palpitation, no guarding, rigidity, rebound tenderness or distension Extremities: Pitting edema +3 bilat in LE Neuro: AAOx3, no focal motor or sensory deficits in the UE or LE bilat Psych: Cooperative Objective Labs 07/29/24 05:08 07/29/24 05:08 Labs: Laboratory Results - last 24 hr 07/29/24 07/29/24 07/29/24 05:00 05:08 09:28 WBC 8.2 RBC 2.92 L Hgb 9.3 L Hct 28.0 L MCV 96 MCH 31.8 MCHC 33.2 RDW Std Deviation 55.1 H Plt Count 169 Neut % (Auto) 81 H Lymph % (Auto) 11 [place] % (Auto) 7 Eos % (Auto) 0 Baso % (Auto) 0 Neut # (Auto) 6.6 Lymph # (Auto) 0.9 L [place] # (Auto) 0.6 Eos # (Auto) 0.0 Baso # (Auto) 0.0 Immature Gran # (Auto) 0.05 H Absolute Nucleated RBC 0.05 H Immature Gran % 1 H Nucleated RBC % 1 H Puncture Site Right Radial ABG pH 7.49 H ABG pCO2 35 ABG pO2 69 L ABG HCO3 27 H ABG O2 Saturation 95 ABG Base Excess 3 Oxygen Liter Flow 4 Sodium 136 Potassium 3.6 D Chloride 96 L Carbon Dioxide 27.3 Anion Gap 13 BUN 27 H Creatinine 5.6 H* D Estim Creat Clear Calc 12.3 L eGFR 8 L* BUN/Creatinine Ratio 5 L Glucose 145 H Calculated Osmolality 280 Lactic Acid Calcium 9.7 Corrected Calcium 10.3 H Phosphorus 4.8 Magnesium 2.2 Total Bilirubin 0.6 AST 166 H ALT 119 H Alkaline Phosphatase 126 H D Ammonia B-Natriuretic Peptide Total Protein 5.7 Albumin 3.2 L D Globulin 2.5 Albumin/Globulin Ratio 1.3 TSH Free T4 Digoxin 1.2 07/29/24 09:39 WBC RBC Hgb Hct MCV MCH MCHC RDW Std Deviation Plt Count Neut % (Auto) Lymph % (Auto) [place] % (Auto) Eos % (Auto) Baso % (Auto) Neut # (Auto) Lymph # (Auto) [place] # (Auto) Eos # (Auto) Baso # (Auto) Immature Gran # (Auto) Absolute Nucleated RBC Immature Gran % Nucleated RBC % Puncture Site ABG pH ABG pCO2 ABG pO2 ABG HCO3 ABG O2 Saturation ABG Base Excess Oxygen Liter Flow Sodium Potassium Chloride Carbon Dioxide Anion Gap BUN Creatinine Estim Creat Clear Calc eGFR BUN/Creatinine Ratio Glucose Calculated Osmolality Lactic Acid 1.6 Calcium Corrected Calcium Phosphorus Magnesium Total Bilirubin AST ALT Alkaline Phosphatase Ammonia < 10 L B-Natriuretic Peptide > 3280 H* Total Protein Albumin Globulin Albumin/Globulin Ratio TSH 31.69 H D Free T4 0.60 L Digoxin ABG Interpretation ABG results: 07/28/24 07/29/24 08:37 09:28 ABG pH 7.49 H ABG pCO2 35 ABG pO2 69 L ABG HCO3 27 H ABG O2 Saturation 95 ABG Base Excess 3 VBG pH 7.46 VBG pCO2 28 L VBG pO2 155 H VBG Base Excess -3 Assessment & Plan A&P Chelo Izaguirre is a 67 y/o female from longterm with a past medical history of DM type II, HTN, ESRD on HD MWF, CAD, CHF, atrial fibrillation on Eliquis, left renal neoplasm s/p nephrectomy who is admitted for Afib w/RVR. #A-fib with RVR #History of cardiac arrest #Hypotension #Asymptomatic bradycardia, resolved CHADVASC score: 5 points, 7.2% stroke risk per year HAS-BLED score: 4 points Pt is rate controlled at this time and on Eliquis, rate 90s-100s still in afib Concern for thyroid issues due to amio long-term use, will continue with beta patti and titrate doses as needed Patient can be given midodrine 2.5 to 5 mg 15 to 30 minutes prior dialysis sessions if she goes hypotensive Patient had previous cardiac arrest in 2019 upon chart records, however not much information to be extrapolated from chart review Amiodarone was discontinued during this admission in the setting of abnormal thyroid function test with elevated TSH of 117. Continue to hold off on the amiodarone. Patient blood pressure was also soft and was hypotensive. Patient was on metoprolol XL 50 mg once daily. Digoxin also was stopped during this admission initially. Patient was being prepped for possible colonoscopy with greatly over the last couple of days but patient has not been able to drink the complete fluids. Given the GoLytely prep which can also cause severe electrolyte abnormalities, stopping of the amiodarone as well as the digoxin and the dialysis which could also cause significant fluid shifts patient probably reverted back into atrial fibrillation with RVR. Stopped metoprolol, started on digoxin renal dosing and continue to hold on amiodarone. Plan: Continue Eliquis 5 mg twice daily if no other procedures planned Telemetry reviewed and patient heart rate is now better controlled between 80-100 bpm Recommend to continue digoxin 125 mcg every other day and check digoxin level every 7 days. Keep potassium in the normal range between 3.5-5 and avoid hypokalemia and hyperkalemia to avoid any kind of dig toxicity as the patient is also on hemodialysis. Will hold off on the amiodarone given her abnormal thyroid function test with signs and symptoms of myxedema. Hold off on the metoprolol XL as the patient is hypotensive. Patient continues to be hypoxic today and is oxygen via Ventimask at 10 L. Patient apparently was lethargic this morning and primary team did consult ICU as the patient is also hypotensive Patient was given levothyroxine 100 mcg x 1 and also hydrocortisone 100 mg x 1 and started on midodrine 10 mg 3 times daily for now. During my examination patient appears to be awake alert and able to answer questions but still appears to be in respiratory distress. On examination patient still continues to have significant edema and chest x-ray does show worsening bilateral pleural effusions. Patient will need dialysis and will need possible pressure support. All antihypertensives were discontinued. Discussed with the primary team again to speak with endocrinology to increase the dose of levothyroxine at least to 75 mcg once daily and 100 mcg once daily given her overall presentation of severe hypothyroidism which is contributing to her clinical status at the present point of time. Patient did not have any of the session of dialysis as the patient continues to be mildly hypotensive. #History of CAD #History of chronic HFrEF with systolic dysfunction and dilated left ventricle and wall motion abnormalities #Trace pericardial effusion #Elevated troponins, NSTEMI type II, resolved Echo shows dilated left ventricle with mild global hypokinesis and moderate systolic dysfunction 35 to 40% for EF. She also has right ventricle systolic pressure of 62 and severe MAC, pleural effusion present in trace pericardial effusion. Plan: ?Continue with aspirin ?Continue with GDMT therapy as able, on metoprolol 50 XL at this point #History of type 2 diabetes #History of hypertension A1c 6.1 Plan: ? Resume home medicines when able #ESRD, on HD Tuesday #hx of L nephroectomy #Lower extremity edema Likely related due to patient not getting enough dialysis Dr. Fields sees pt, says she goes for diaylsis 4x a week Plan: ? Nephrology on consult, appreciate recs #? GI bleed Hemoglobin around 10, FOBT positive recently Patient is on GoLytely prep, still not finished prep, refusing NG tube at this time Plan: ? Colonoscopy when patient finishes GoLytely prep and is ready for colonoscopy #Hypothyroidism TSH ~110, Free T4 0.46; Recheck shows TSH ~80s No hx of hypothyroidism in the past Pt's BP could be low because of this as well Hypothyroidism could be from [employer] Amio use, Will not resume Management of rest of the medical conditions as per primary team and other consultants. Thank you for the consult and allowing me to participate in the care of the patient. Cardiology will continue to follow. Orestes Dudley M.D. Interventional Cardiology Time Spent With Patient Time: Total time spent is greater than 50% in coordination of care (as documented) at patient's floor/unit and/or counseling patient:
[2024-07-30] VITALS (31 sets, daily range): BP systolic 87–137; BP diastolic 23–77; PULSE 52–145; RESP 18–31; TEMP 35.9–36.8; O2SAT 93–100; BMI 32.2
[2024-07-30] MEDS: LEVALBUTEROL RT 0.63 MG/3 ML NEBU INH ×4 (00:50→19:43)
[2024-07-30] MEDS: IPRATROPIUM RT 0.5 MG/ 2.5 ML NEBU INH ×4 (00:50→19:43)
[2024-07-30 05:16] LABS: Basophils % (Auto) 0 % (0-2.5); Eosinophils % (Auto) 0 % (0-10); Hematocrit 29.2 % (36.0-46.0); Hemoglobin 9.6 g/dL (12.0-16.0); Immature Granulocytes % (Auto) 1 % (0-0); Immature Granulocytes Auto 0.05 Thou/mm3 (0.00-0.00); Lymphocytes # (Auto) 0.6 Thou/mm3 (1.0-4.8); Lymphocytes % (Auto) 9 % (10-50); Mean Corpuscular HGB Conc 32.9 g/dl (31.0-37.0); Mean Corpuscular Volume 97 fL (80-100); Monocytes # (Auto) 0.2 Thou/mm3 (0.0-0.8); Monocytes % (Auto) 4 % (0-12); Neutrophils # (Auto) 5.8 Thou/mm3 (1.8-7.7); Neutrophils % (Auto) 87 % (37-80); Nucleated Red Blood Cell # 0.02 Thou/mm3 (0.00-0.00); Nucleated Red Blood Cell % 0 /100 WBC (0); Platelet Count 163 Thou/mm3 (140-440); RDW Standard Deviation 58.6 fL (36.4-46.3); White Blood Count 6.7 Thou/mm3 (3.6-11.0)
[2024-07-30] MEDS: ACETAMINOPHEN 325 MG TABLET 650 MG PO (05:53)
[2024-07-30] MEDS: MIDODRINE 5 MG TABLET 15 MG PO ×3 (05:53→22:13)
[2024-07-30] MEDS: LEVOTHYROXINE SODIUM 25 MCG TABLET 75 MCG PO (05:54)
[2024-07-30 06:05] LABS: Alanine Aminotransferase 120 U/L (10-49); Albumin, Serum 3.4 gm/dL (3.4-4.8); Albumin/Globulin Ratio 1.3 (1.2-2.2); Alkaline Phosphatase 123 U/L (46-116); Anion Gap 14 (7-16); Aspartate Amino Transferase 115 U/L (0-34); BUN/Creatinine Ratio 5 Ratio (12-20); Bilirubin,Total 0.6 mg/dL (0.3-1.2); Blood Urea Nitrogen 31 mg/dL (9-23); Calcium 10.1 mg/dL (8.3-10.6); Calcium (Corrected) 10.6 mg/dL (8.5-10.1); Carbon Dioxide 25.8 mMol/L (20.0-31.0); Chloride 96 mMol/L (98-107); Creatinine (Component) 6.4 mg/dL (0.6-1.3); Digoxin 1.2 ng/mL (0.8-2.0); Estimated Creatinine Clearance 10.8 mL/min (>60); Globulin 2.7 gm/dL (2.3-3.5); Glucose 148 mg/dL (74-106); Magnesium 2.4 mg/dL (1.6-2.6); Osmolality,Calculated 281 (275-295); Phosphorous 5.9 mg/dL (2.4-5.1); Potassium 3.5 mMol/L (3.4-5.1); Sodium 136 mMol/L (136-145); Total Protein 6.1 gm/dL (5.7-8.2); eGFR 7 See Note
[2024-07-30] MEDS: METOPROLOL TARTRATE INJ 1 MG/ML AMP 5 ML 5 MG IVP (06:13)
[2024-07-30] MEDS: traMADol HCL 50 MG TABLET PO (06:16)
--- NOTE | 2024-07-30 07:07 | EVENTNT_ITS ---
Documentation for date of: 07/30/24 Event Note Event Note: Rapid response was called at 6:00 am due to afib with RvR in the rate of 150s. Patient with known afib this hospitalization. Patient was awake and complaining of right sided rib/back pain. BP was 135/89, O2 sat 100% on 3L oxymask. Patient was administered metoprolol tartrate 5 mg IV x1, and rate was controlled to 100- 110. BP maintained 120s/70s. Patient plan of care was discussed with the attending physician, Dr. Campos and team residents Dr. Wilbert Amezquita PGY-[address] Vahid Graham PGY-1. Dominga Meneses, PGY-2
[2024-07-30] MEDS: SEVELAMER CARBONATE 800 MG TABLET PO ×3 (08:06→17:31)
[2024-07-30] MEDS: INSULIN LISPRO (AdmeLOG) 1 UNIT/0.01 ML UNIT SC ×2 (08:06→17:31)
[2024-07-30 08:38] LABS: Free T4 (Free Thyroxine) 0.74 ng/dL (0.89-1.76)
--- NOTE | 2024-07-30 08:46 | EKG_ITS ---
[facility] Test Date: 2024-07-30 Pat Name: BERT ALEJANDRO [facility] Gender[facility] Female [employer] Process: [place] : 1955 Requested By: [place] Order Number: [id number] Reading MD: [place] Measurements Intervals [place] Rate: 78 P: NC: QRS: 134 QRSD: 106 T: 154 QT: 387 QTc: 441 Interpretive Statements ATRIAL FIBRILLATION POSSIBLE RIGHT VENTRICULAR HYPERTROPHY ANTEROLATERAL MYOCARDIAL INFARCTION , OF INDETERMINATE AGE Compared to ECG 07/27/2024 15:40:29 No significant changes /store/S0/[id number].pdf
[2024-07-30] MEDS: PANTOPRAZOLE INJ 40 MG VIAL IV (09:09)
[2024-07-30] MEDS: ASPIRIN EC 81 MG TABEC PO (09:09)
[2024-07-30] MEDS: APIXABAN 2.5 MG TABLET PO ×2 (09:09→20:57)
--- NOTE | 2024-07-30 09:21 | PD.RESPRO ---
Documentation for date of: 07/30/24 Subjective Subjective Interval history: 07/30/2024: Pt examined at bedside today. Overnight event pt having rapid, afib rate in 150s was given metoprolol 5 mg IV, and was put on oxymask which brought pt's HR 100s-110s. Pt reports she is doing okay. She feels more weak at this time and is requesting for her to close her door once our examination was finished. She is agreeable to diaylsis today, BUN 31 and Cr 6.4, Phos 5.9, Potassium 3.5 and Mg 2.4. She denies any CP at this time. No other complaints. We will continue to do dialysis today, with goals of 1-2L as pt has been experiencing hypotension. Exam Vital Signs Temp Pulse Resp BP Pulse Ox O2 Del Method O2 Flow Rate 97.8 F 98 24 H 98/77 100 Oxy Mask 3 07/30/24 08:00 07/30/24 08:00 07/30/24 08:00 07/30/24 08:00 07/30/24 08:00 07/30/24 08:00 07/30/24 08:00 Narrative Exam General: AAOx3, a bit mild distress, seems a bit tired and lethargic HEENT: Moist mucous membranes, conjunctiva clear, EOMI, PERRLA, Cardiovascular: S1, S2, radial pulses +2 bilat, irregularly irregular Pulmonary: CTAB bilat no cough, no wheezing, wearing oxymask GI: No tenderness to light or deep palpitation, no guarding, rigidity, rebound tenderness or distension Extremities: +2 pitting edema in lower extremities bilaterally, dorsalis pedis pulses +2 bilaterally Neuro: AAOx3, no focal motor or sensory deficits in the UE or LE bilat Psych: Cooperative Objective Labs 07/30/24 04:08 07/30/24 04:08 Labs: Laboratory Results - last 24 hr 07/29/24 07/29/24 07/30/24 09:28 09:39 04:08 WBC 6.7 RBC 3.00 L Hgb 9.6 L Hct 29.2 L MCV 97 MCH 32.0 MCHC 32.9 RDW Std Deviation 58.6 H Plt Count 163 Neut % (Auto) 87 H Lymph % (Auto) 9 L [place] % (Auto) 4 Eos % (Auto) 0 Baso % (Auto) 0 Neut # (Auto) 5.8 Lymph # (Auto) 0.6 L [place] # (Auto) 0.2 Eos # (Auto) 0.0 Baso # (Auto) 0.0 Immature Gran # (Auto) 0.05 H Absolute Nucleated RBC 0.02 H Immature Gran % 1 H Nucleated RBC % 0 Puncture Site Right Radial ABG pH 7.49 H ABG pCO2 35 ABG pO2 69 L ABG HCO3 27 H ABG O2 Saturation 95 ABG Base Excess 3 Oxygen Liter Flow 4 Sodium 136 Potassium 3.5 Chloride 96 L Carbon Dioxide 25.8 Anion Gap 14 BUN 31 H Creatinine 6.4 H* D Estim Creat Clear Calc 10.8 L eGFR 7 L* BUN/Creatinine Ratio 5 L Glucose 148 H Calculated Osmolality 281 Lactic Acid 1.6 Calcium 10.1 Corrected Calcium 10.6 H Phosphorus 5.9 H Magnesium 2.4 Total Bilirubin 0.6 AST 115 H ALT 120 H Alkaline Phosphatase 123 H Ammonia < 10 L B-Natriuretic Peptide > 3280 H* Total Protein 6.1 Albumin 3.4 Globulin 2.7 Albumin/Globulin Ratio 1.3 TSH 31.69 H D Free T4 0.60 L 0.74 L Digoxin 1.2 ABG Interpretation ABG results: 07/28/24 07/29/24 08:37 09:28 ABG pH 7.49 H ABG pCO2 35 ABG pO2 69 L ABG HCO3 27 H ABG O2 Saturation 95 ABG Base Excess 3 VBG pH 7.46 VBG pCO2 28 L VBG pO2 155 H VBG Base Excess -3 Quality Measures Quality Measures VTE prophylaxis Advance care planning discussed with:: patient Assessment & Plan Assessment Current Active Medications: Generic Name Dose Route Start Last Admin Trade Name Freq PRN Reason Stop Dose Admin Acetaminophen 650 mg 07/27/24 16:15 07/30/24 05:53 Acetaminophen 325 Mg Tablet PO 08/26/24 16:12 650 mg Q4HR PRN Administration mild pain 1-3 or Fever >100.4 Al Hydrox/Mg Hydrox/Simethicone 30 ml 07/27/24 18:41 07/29/24 18:19 Mg Hyd/Al Hyd/Alfredo (Maalox Reg) Susp 30 Ml Udc PO 08/26/24 18:40 30 ml QID PRN Administration UPSET STOMACH/INDIGESTION Apixaban 2.5 mg 07/22/24 09:00 07/30/24 09:09 Apixaban 2.5 Mg Tablet PO 08/21/24 08:59 2.5 mg BID KOTA Administration Aspirin 81 mg 07/22/24 09:00 07/30/24 09:09 Aspirin Ec 81 Mg Tabec PO 08/21/24 08:59 81 mg QDAY KOTA Administration Benzonatate 100 mg 07/21/24 11:42 07/26/24 19:45 Benzonatate 100 Mg Capsule PO 08/20/24 11:41 100 mg Q8HR PRN Administration COUGH Protocol Dextrose 25 ml 07/20/24 15:46 Dextrose 50%-Water Inj 50 Ml Syringe IV 08/19/24 15:45 Q15MIN PRN BG 50-70 responsive npo pt Dextrose 50 ml 07/20/24 15:46 07/21/24 07:46 Dextrose 50%-Water Inj 50 Ml Syringe IV 08/19/24 15:45 50 ml Q15MIN PRN Administration BG <50 OR BG <70 & pt unresponsive Digoxin 0.125 mg 07/29/24 08:00 07/29/24 08:57 Digoxin 0.125 Mg Tablet PO 08/28/24 07:59 0.125 mg Q48H KTOA Administration Glucagon 1 mg 07/20/24 15:46 Glucagon Inj 1 Mg Vial IM Q15MIN PRN BG <70, and no IV access Guaifenesin/Dextromethorphan 1 each 07/20/24 16:08 Guaifenesin/Dm Tablet PO 08/19/24 16:07 Q4HR PRN COUGH Protocol Albumin Human 25 gm in 100 mls @ 100 mls/min 07/20/24 17:18 07/27/24 15:10 Albuminar-25 Ivpb IV 100 mls/min PRN PRN Administration DIALYSIS Insulin Human Lispro 0 unit 07/20/24 17:00 07/30/24 08:06 Insulin Lispro (Admelog) 1 Unit/0.01 Ml Unit SC 08/19/24 16:59 2 unit ACHS KOTA Administration Protocol Insulin Human Lispro 5 unit 07/20/24 17:00 07/21/24 08:09 Insulin Lispro (Admelog) 1 Unit/0.01 Ml Unit SC 08/19/24 16:59 Not Given ACHS KOTA Ipratropium [place] 0.5 mg 07/20/24 19:00 07/30/24 06:44 Ipratropium Rt 0.5 Mg/ 2.5 Ml Nebu INH 08/19/24 18:59 0.5 mg Q6HRRT KOTA Administration Levalbuterol HCl 0.63 mg 07/21/24 10:00 07/30/24 06:44 Levalbuterol Rt 0.63 Mg/3 Ml Nebu INH 08/20/24 09:59 0.63 mg Q6HRRT KOTA Administration Levothyroxine Sodium 75 mcg 07/30/24 06:00 07/30/24 05:54 Levothyroxine Sodium 25 Mcg Tablet PO 08/29/24 05:59 75 mcg ACBR KOTA Administration Melatonin 3 mg 07/21/24 00:29 07/27/24 21:19 Melatonin 3 Mg Tablet PO 08/20/24 20:59 3 mg HS PRN Administration SLEEPLESSNESS Midodrine 15 mg 07/29/24 14:00 07/30/24 05:53 Midodrine 5 Mg Tablet PO 08/28/24 13:59 15 mg TID KOTA Administration Pantoprazole Sodium 40 mg 07/24/24 08:55 07/30/24 09:09 Pantoprazole Inj 40 Mg Vial IV 08/23/24 08:54 40 mg QDAY KOTA Administration Promethazine HCl/Dextromethorphan 5 ml 07/24/24 10:29 07/25/24 23:52 Promethazine/Dm Syrup 5 Ml Dose PO 08/23/24 10:28 5 ml Q6HR PRN Administration COUGH OR CONGESTION Protocol Sevelamer Carbonate 800 mg 07/30/24 08:00 07/30/24 08:06 Sevelamer Carbonate 800 Mg Tablet PO 08/29/24 07:59 800 mg TIDWM KOTA Administration Plan Assessment Zina is a 67 y/o female from intermediate with a past medical history of DM type II, HTN, ESRD on HD MWF, CAD, CHF, atrial fibrillation on Eliquis, left renal neoplasm s/p nephrectomy who is admitted for Afib w/RVR. #A-fib with RVR #History of cardiac arrest #Hypotension #Asymptomatic bradycardia, resolved CHADVASC score: 5 points, 7.2% stroke risk per year HAS-BLED score: 4 points Pt is rate controlled at this time and on Eliquis, rate 90s-100s still in afib Concern for thyroid issues due to amio detention use, will continue with beta patti and titrate doses as needed Patient can be given midodrine 2.5 to 5 mg 15 to 30 minutes prior dialysis sessions if she goes hypotensive Patient had previous cardiac arrest in 2019 upon chart records, however not much information to be extrapolated from chart review Amiodarone was discontinued during this admission in the setting of abnormal thyroid function test with elevated TSH of 117. Continue to hold off on the amiodarone. Patient blood pressure was also soft and was hypotensive. Patient was on metoprolol XL 50 mg once daily. Digoxin also was stopped during this admission initially. Pt was given Digoxin yesterday (07/29) Plan: Continue Eliquis 5 mg twice daily Continue digoxin 125 mcg every other day and check digoxin level every 7 days. Keep potassium in the normal range between 3.5-5 and avoid hypokalemia and hyperkalemia to avoid any kind of dig toxicity as the patient is also on hemodialysis. Pt can be give IV amio if pt's patient goes into Afib with RVR We will hold off on metoprolol because of BP #History of CAD #History of chronic HFrEF with systolic dysfunction and dilated left ventricle and wall motion abnormalities #Trace pericardial effusion #Elevated troponins, NSTEMI type II, resolved Echo shows dilated left ventricle with mild global hypokinesis and moderate systolic dysfunction 35 to 40% for EF. She also has right ventricle systolic pressure of 62 and severe MAC, pleural effusion present in trace pericardial effusion. Plan: ?Continue with aspirin ?Continue with GDMT therapy as able #History of type 2 diabetes #History of hypertension A1c 6.1 Plan: ? Resume home medicines when able, handled by primary #ESRD, on HD Tuesday #hx of L nephroectomy #Lower extremity edema Likely related due to patient not getting enough dialysis Dr. Fields sees pt, says she goes for diaylsis 4x a week Plan: ? Nephrology on consult, appreciate recs #? GI bleed Hemoglobin ~10, FOBT positive recently Patient is on GoLytely prep, still not finished prep, refusing NG tube at this time Plan: ?Outpatient colonoscopy #Hypothyroidism TSH ~32, free T4 0.74 No hx of hypothyroidism in the past Pt's BP could be low because of this as well Hypothyroidism could be from oysterman Amio use, Will not resume Was given 100 mcg IV of synthroid and 100 mg IV hydrocortisone Curbsided Endo and ICU with above recommendations Plan: Continue with 75 mcg PO Synthroid Patient seen and care discussed with my attending physician, Dr. Octavia Mcmahon, PGY-1 Attending Provider Attestation/Addendum I have personally seen and examined the patient separately on the above date of service and discussed the plan of care with the resident. I reviewed the resident Dr. Steiner consultation progress note and agree with the resident findings and plan in the note above and have also edited the documentation to reflect my findings and plan. Orestes Dudley M.D. Interventional Cardiology
--- NOTE | 2024-07-30 09:51 | PC.NURSE ---
bp low will candida prn albumin and cont. to onitor
[2024-07-30] MEDS: ALBUMIN HUMAN 25% IVPB 25 GM/100 ML BTL IV (09:52)
--- NOTE | 2024-07-30 10:03 | PC.SS ---
SS follow up note; Patient's BP continues to be soft, patient will be getting Dialysis today, not medically stable. Auth has been obtained to return back to [facility] when medically stable.
--- NOTE | 2024-07-30 10:30 | ESPR_ITS ---
<Statement entered by Brandon Montero MD - 07/30/24 13:53> Patient was seen and examined in dialysis unit. Overnight patient had a rapid response due to A-fib RVR and patient was given metoprolol tartrate which controlled her heart rate however she remained in A-fib rate controlled. Patient underwent dialysis and she tolerated however blood pressure remains soft. Central Sterile Technician was angelb sided yesterday who recommended to start levothyroxine either at 50 mcg if free T4 is within normal limits however if its below normal we can start with levothyroxine 75 mcg and patient will benefit from her amiodarone and digoxin combination for A-fib and did not recommend to give metoprolol and cardiology was agreeable to the plan. Will continue with midodrine 15 mg 3 times daily for blood pressure. Patient completed her antibiotic course for Zosyn. Her TSH was 31.69 and FT4 0.60. Hemoglobin remained stable. Kidney functions consistent with ESRD. Will likely follow-up closely on her blood pressure and monitoring for clinical improvement. Patient was complaining of abdominal pain in afternoon therefore ultrasound of the abdomen has been ordered will likely follow-up on that. All labs and orders were reviewed. I saw and examined the patient, and I agree with current management stated by Dr Brittney MD,PGY1. Plan of care was discussed with the attending physician and resident physician. Disclaimer: Despite multiple revisions, due to the dictation software being used, the document bellow may not be free of grammatical errors including phonetic/typographic errors. However, this does not deter from our commitment to providing health care in the patient's best interest in mind. Dr. Winston MD, PGY 2 Documentation for date of: 07/30/24 Subjective Subjective Interval history: Night, patient had a rapid response called, secondary to atrial fibrillation with RVR with heart rate in 150s. Patient was given metoprolol to tartrate 5 mg IV push x 1, improved atrial fibrillation. This morning patient was drowsy at bedside but alert and oriented x 3. MAP above 65. Patient is scheduled for dialysis-->Net removal 1 L. Pat[place] is having lower quadrant pain, 1 bowel movement recorded. US abdomen obtained to rule out appendiciitis, negative. Opioids removed given soft blood pressure and increased drowiness. Please given Acetaminophen or Simethicone. Exam Vital Signs Temp Pulse Resp BP Pulse Ox O2 Del Method O2 Flow Rate 97.5 F 56 L 24 H 89/55 L 100 Oxy Mask 2 07/30/24 09:34 07/30/24 10:14 07/30/24 09:34 07/30/24 10:14 07/30/24 09:34 07/30/24 08:00 07/30/24 09:34 Narrative Exam General Appearance: Alert & Oriented X3, well-nourished female who is lying in bed in no acute distress but drowsy but responsive to verbal command. HEENT: Skull symmetrical and atraumatic. Conjunctivae pin and moist. Pupils equal, round, reactive to light and accommodation (PERRL). External ear without lesion or discharge. Straight, nares patient, mucosa pink, no discharge. No thyroid nodule appreciated. No cervical lymphadenopathy. Cardio: Normal Rate and Rhythm with S1 and S2 heart sounds. No murmurs or extra heart sounds auscultated. No bruits on carotid auscultation. Edema +3 Lungs: Symmetric with good expansion. Chest and back non-tender. Breath sounds vesicular with crackles Abdomen: Mild tenderness, Non-distended, Normal Reactive Bowel Sounds Neuro: Alert, cooperative, oriented to person, place, and time. Speech clear. CN grossly intact. Upper motor strength 5/5 and Lower motor strength 5/5. Sensation intact. Objective Labs 07/30/24 04:08 07/30/24 04:08 Labs: Laboratory Results - last 24 hr 07/29/24 07/30/24 09:39 04:08 WBC 6.7 RBC 3.00 L Hgb 9.6 L Hct 29.2 L MCV 97 MCH 32.0 MCHC 32.9 RDW Std Deviation 58.6 H Plt Count 163 Neut % (Auto) 87 H Lymph % (Auto) 9 L [place] % (Auto) 4 Eos % (Auto) 0 Baso % (Auto) 0 Neut # (Auto) 5.8 Lymph # (Auto) 0.6 L [place] # (Auto) 0.2 Eos # (Auto) 0.0 Baso # (Auto) 0.0 Immature Gran # (Auto) 0.05 H Absolute Nucleated RBC 0.02 H Immature Gran % 1 H Nucleated RBC % 0 Sodium 136 Potassium 3.5 Chloride 96 L Carbon Dioxide 25.8 Anion Gap 14 BUN 31 H Creatinine 6.4 H* D Estim Creat Clear Calc 10.8 L eGFR 7 L* BUN/Creatinine Ratio 5 L Glucose 148 H Calculated Osmolality 281 Calcium 10.1 Corrected Calcium 10.6 H Phosphorus 5.9 H Magnesium 2.4 Total Bilirubin 0.6 AST 115 H ALT 120 H Alkaline Phosphatase 123 H Total Protein 6.1 Albumin 3.4 Globulin 2.7 Albumin/Globulin Ratio 1.3 TSH 31.69 H D Free T4 0.60 L 0.74 L Digoxin 1.2 ABG Interpretation ABG results: 07/28/24 07/29/24 08:37 09:28 ABG pH 7.49 H ABG pCO2 35 ABG pO2 69 L ABG HCO3 27 H ABG O2 Saturation 95 ABG Base Excess 3 VBG pH 7.46 VBG pCO2 28 L VBG pO2 155 H VBG Base Excess -3 Quality Measures Quality Measures VTE prophylaxis Advance care planning discussed with:: other Assessment & Plan Assessment Current Active Medications: Generic Name Dose Route Start Last Admin Trade Name Freq PRN Reason Stop Dose Admin Acetaminophen 650 mg 07/27/24 16:15 07/30/24 05:53 Acetaminophen 325 Mg Tablet PO 08/26/24 16:12 650 mg Q4HR PRN Administration mild pain 1-3 or Fever >100.4 Al Hydrox/Mg Hydrox/Simethicone 30 ml 07/27/24 18:41 07/29/24 18:19 Mg Hyd/Al Hyd/Alfredo (Maalox Reg) Susp 30 Ml Udc PO 08/26/24 18:40 30 ml QID PRN Administration UPSET STOMACH/INDIGESTION Apixaban 2.5 mg 07/22/24 09:00 07/30/24 09:09 Apixaban 2.5 Mg Tablet PO 08/21/24 08:59 2.5 mg BID KOTA Administration Aspirin 81 mg 07/22/24 09:00 07/30/24 09:09 Aspirin Ec 81 Mg Tabec PO 08/21/24 08:59 81 mg QDAY KOTA Administration Benzonatate 100 mg 07/21/24 11:42 07/26/24 19:45 Benzonatate 100 Mg Capsule PO 08/20/24 11:41 100 mg Q8HR PRN Administration COUGH Protocol Dextrose 25 ml 07/20/24 15:46 Dextrose 50%-Water Inj 50 Ml Syringe IV 08/19/24 15:45 Q15MIN PRN BG 50-70 responsive npo pt Dextrose 50 ml 07/20/24 15:46 07/21/24 07:46 Dextrose 50%-Water Inj 50 Ml Syringe IV 08/19/24 15:45 50 ml Q15MIN PRN Administration BG <50 OR BG <70 & pt unresponsive Digoxin 0.125 mg 07/29/24 08:00 07/29/24 08:57 Digoxin 0.125 Mg Tablet PO 08/28/24 07:59 0.125 mg Q48H KOTA Administration Glucagon 1 mg 07/20/24 15:46 Glucagon Inj 1 Mg Vial IM Q15MIN PRN BG <70, and no IV access Guaifenesin/Dextromethorphan 1 each 07/20/24 16:08 Guaifenesin/Dm Tablet PO 08/19/24 16:07 Q4HR PRN COUGH Protocol Albumin Human 25 gm in 100 mls @ 100 mls/min 07/20/24 17:18 07/30/24 09:52 Albuminar-25 Ivpb IV 100 mls/min PRN PRN Administration DIALYSIS Insulin Human Lispro 0 unit 07/20/24 17:00 07/30/24 08:06 Insulin Lispro (Admelog) 1 Unit/0.01 Ml Unit SC 08/19/24 16:59 2 unit ACHS KOTA Administration Protocol Insulin Human Lispro 5 unit 07/20/24 17:00 07/21/24 08:09 Insulin Lispro (Admelog) 1 Unit/0.01 Ml Unit SC 08/19/24 16:59 Not Given ACHS KOTA Ipratropium Sawyer 0.5 mg 07/20/24 19:00 07/30/24 06:44 Ipratropium Rt 0.5 Mg/ 2.5 Ml Nebu INH 08/19/24 18:59 0.5 mg Q6HRRT KOTA Administration Levalbuterol HCl 0.63 mg 07/21/24 10:00 07/30/24 06:44 Levalbuterol Rt 0.63 Mg/3 Ml Nebu INH 08/20/24 09:59 0.63 mg Q6HRRT KOTA Administration Levothyroxine Sodium 75 mcg 07/30/24 06:00 07/30/24 05:54 Levothyroxine Sodium 25 Mcg Tablet PO 08/29/24 05:59 75 mcg ACBR KOTA Administration Melatonin 3 mg 07/21/24 00:29 07/27/24 21:19 Melatonin 3 Mg Tablet PO 08/20/24 20:59 3 mg HS PRN Administration SLEEPLESSNESS Midodrine 15 mg 07/29/24 14:00 07/30/24 05:53 Midodrine 5 Mg Tablet PO 08/28/24 13:59 15 mg TID KOTA Administration Pantoprazole Sodium 40 mg 07/24/24 08:55 07/30/24 09:09 Pantoprazole Inj 40 Mg Vial IV 08/23/24 08:54 40 mg QDAY KOTA Administration Promethazine HCl/Dextromethorphan 5 ml 07/24/24 10:29 07/25/24 23:52 Promethazine/Dm Syrup 5 Ml Dose PO 08/23/24 10:28 5 ml Q6HR PRN Administration COUGH OR CONGESTION Protocol Sevelamer Carbonate 800 mg 07/30/24 08:00 07/30/24 08:06 Sevelamer Carbonate 800 Mg Tablet PO 08/29/24 07:59 800 mg TIDWM KOTA Administration Plan Patient is a 68-year-old female with a past medical history of hypertension, diabetes mellitus type 2 insulin-dependent, CAD, CHF HFpEF 60-65%, ESRD (MWF), Atrial Fibrillation on Eliquis and history of renal cell carcinoma s/p Left nephrectomy (2022) who was admitted on who was admitted for acute chf exacerbation, pneumonia, and Atrial Fibrilation w/ RVR, rate controlled now, and Lower GI bleed. Hypothyroidism, improved Patient presented with a TSH level of 118.25 and a T4 of 0.46 and 1.7 T3. Levothyroxine started 25 mcg p.o. before meals. Medication induced versus euthyroidism versus myxedema coma (less likely). Second TSH 87.56 on 07/21/2024. Continue TSH and Free T4 improvement. Continue to follow up on Free T4. Improved T4 0.74 (07/30/2024). Plan: -Levothyroxine 75 mcg p.o. before meals 07/30/2024 -Levothyroxine 100 mcg X 1 07/30/2024 -Cortisol 100 mg X 1 07/30/2024 -Free T4 #Acute CHF exacerbation #HFpEF 35 to 40% #Acute Hypoxic Respirtory Failure, continued #Elevated troponin Has a past medical history of CHF. No Lasix noted for patient. Preserved ejection fraction of 35 to 40% on 07/20/2024. Pulmonary pressure noted 62 mmHg. Patient patient scheduled for dialysis today, reevaluate tomorrow's fluid status. Patient still produces some urine. Positive Orthopnea. Positive Paroxsymal Orthopnea. Requires several pillows to sleep. Wheelchair bound. Lower Pedal edema noted, improved. Lower extremity wound noted-wound care. BNP 1261. Prominent vascular congestion on cxr. Patient produces minimal urine. Elevated troponin on admission, likely NSTEMI II given demand ischemia as there are no ST elevations. Plan: -Continue digoxin 0.125mcg every other day -Follow up with digoxin levels every 7 days -hold Metoprolol Succinate -No lasix, very urine output -Cardiology Consult, appreciate recommendations. -wean of o2, currently on oxy mask continues to desat -CXR ordered #Atrial fibrillation with RVR #Atrial Fibrillation Patient has a past medical history of atrial fibrillation. Home medication of amiodarone 400 twice daily and digoxin 125 mcg daily. Currently holding amiodarone twice daily given elevated TSH as it can cause hyper or hypothyroidism. Pending digoxin levels. Pending final recommendations from cardiology. Second EKG ordered, to confirm A-fib with RVR. RVR likely triggered by pneumonia, CHF exacerbation and lack of dialysis completion. 07/27/2024-patient experienced rapid during dialysis for MAP of 30 with a systolic blood pressure in 40s. Cardiology updated, stopped Metoprolol. START DIGOXIN. EKG on 07/27/2024 noted for Afib w/ rvr Plan -07/29/2024 Digoxin 0.125 every other day. -If patient goes into Afib w/ rvr please give Amiodarone -Continue Metoprolol Succinate 50 mg HS, stopped -Cardiology Consulted, Dr. Ring, appreciate recommendations. #Hypotension #ESRD (Tuesday) Patient has a past medical history of dialysis likely secondary to nephrectomy from renal cell carcinoma (2022). Inpatient dialysis on 07/20/2024, Dr. Ventura consulted, when patient was admitted as she was feeling unwell. Patient will continue to receive dialysis in patient. Patient resumed regular dialysis scheduled with 1 L UF removed. Hypotension likely secondary to dialysis vs hypothyroidism vs metoprolol. Plan Midodrine 15 mg TID and albumin Dialysis as per patient's home schedule Renally dose medication Avoid nephrotoxins Phosphorus improved Follow-up with phosphate consider restarting the Sevelamer, based on nephrology recommendations Consult Nephrology, Appreciate Recommendations, Dr. Ventura #Diabetes mellitus type 2 insulin-dependent #Hypoglycemic episode, resolved. Past medical history of diabetes mellitus with current A1c on admission 6.1% (07/2024). Patient stated she was on 40 units Glargine but that caused a hypoglycemic episode, D/C. Plan Sliding scale ACHS (lispor) follow AM labs #Hyperlipidemia #CAD Home medication atorvastatin. Currently holding Lipid Cholesterol 69 L, LDL 24, HDL 34; unable to calculate ASCVD given low cholesterol Plan Follow AST's ALT's Consider restarting Atorvastatin on discharge. Holding Atorvastatin # Elevated transaminitis, secondary hepatitis A and C+, improving #Lower GI bleed, stable #Anemia normocytic Plan for colonoscopy for lower GI bleed recorded positive FOBT. Given hepatitis A, likely contributing to lower GI bleed possible soft bowel movements reported by patient in the morning. Malignancy cannot be ruled out versus diverticulitis. Plan -GoLytely-still on first jug, STOPPED. Patient did not complete jug as instructed. refused NG tube -Colonoscopy as outpatient -GI consult, Dr. Krishnamurthy appreciate recommendations -Update SNF, vp digital marketing social media and crm. #Community-acquired Pneumonia likely GPC, Resolved Patient presented with increased cough for the past 3 weeks that has been productive. Likely send secondary to viral superimposed bacteria given bilateral component. Likely gram-positive cocci suggest strep pneumoniae. Cocci less likely. PE cannot be ruled out as wells criteria 6 points (16% of PE in the ED). Venous U/S of Lower extremity Negative. AL less likely given no st elevation on EKG but troponins are slighlty elevated at 0.12. Following. No chest pain. COVID flu negative. MRSA negative 07/21/2024 Gram Stain: Epithelial Cells, WBC 1. no organisms seen. Sputum Culture Mixed Plan Ceftriaxone 1 g (07/20/2024)--Zosyn 07/23/2024-07/30/2024 for dull coverage of UTI ESBL Azithromycin 500 daily x3 days, completed Consider 2nd Cxr if symptoms worsen with increased work of breathing overnight Chest physio Cough syrup CBC CMP #Urinary tract infection, complicated Patient presented with a positive UA showing positive esterase, positive WBCs and +1 bacteria. Past medical history of UTIs. Dysuria positive. Negative for suprapubic tenderness. Culture positive for ESBL, patient symptomatic with burning urination Plan -Zosyn 07/23/2024-07/30/2024 Health Maintenance: Disp: Telemetry FEN: Clear Liquid-->Transition patient back to peptic ulcer diet/soft foods and advance as tolerated by patient DVT: resumed Eliquis Code: Full code - The patient's plan was discussed with attending Dr. Ohara and senior residents Dr. Winston Lugo MD PGY1 Internal Medicine Attending Provider Attestation/Addendum I attest that I was physically present for the evaluation, physical examination, lab and imaging review of the patient with the residents. I discussed the case with the residents and agree with the findings and plans of care as documented above. At bedside today, patient is complaining of abdominal pain. Stated that Maalox did help partially. We will obtain an abdominal ultrasound. Blood pressure continues to be soft. She was able to tolerate diet today. Continues to be on A-fib, rate controlled. Currently on digoxin. Patient had a rapid response called her last night due to A-fib with RVR, received a dose of IV metoprolol. T4 level slightly improved compared to yesterday. We will obtain serial free T4 level and adjust for levothyroxine dosing slowly. America Ohara MD
[2024-07-30] MEDS: EPOETIN ALFA-EPBX INJ 10,000 UNIT/ML VIAL (ESRD) 10000 UNIT SC (10:57)
[2024-07-30] MEDS: MG HYD/AL HYD/SIME (Maalox Reg) SUSP 30 ML UDC PO (13:52)
--- NOTE | 2024-07-30 13:53 | ESPR_ITS ---
Documentation for date of: 07/30/24 Subjective Subjective Interval history: Ms. Nguyễn is a 68-year-old who is well-known to me with a past medical history significant for hypertension, diabetes mellitus type 2 insulin- dependent, CAD, CHF HFpEF 60-65%, ESRD (MWF), Atrial Fibrillation on Eliquis and history of renal cell carcinoma s/p Left nephrectomy (2022) has been having significant fluid overload and sometimes receiving 4 times weekly dialysis presented to the emergency department with weakness, shortness of breath and high fevers. In the emergency department she was diagnosed with extensive bilateral pneumonia and also severe pulmonary vascular congestion. EKG showed A-fib with RVR. Labs showed WBC 5.2, hemoglobin 12.5, platelets 152. Sodium 132, potassium 3.6, BUN 28, creatinine 4.6, blood sugar 199, calcium 9.6, AST 65, ALT 44, alk phos 201, troponin 0.12, BNP 06/13/1959, albumin 4, TSH 118, Pro-Devon 0.43, urinalysis shows significant amount of blood and 1+ bacteria. Did level 0.4. Hepatitis STUART positive, hep C positive Admitted for pneumonia, acute chf exacerbation, and A-fib RVR, UTI Medication given in the emergency room Lasix 40 mg x 1, nitroglycerin, cefepime, morphine, aspirin 325. Nephrology consultation requested in view of need for dialysis. Patient currently on dialysis 07/22/2024 patient currently seen in telemetry. Still having significant shortness of breath and edema. Patient had a short run of dialysis yesterday. Next dialysis scheduled for tomorrow. Continue with antibiotics. Admitted with pneumonia/CHF exacerbation. 07/23/2024 patient was seen and examined at bedside. Blood pressure still on the soft side 99/65, pulse rate of 91, respiratory rate of 23, O2 saturation 99 on 1 L of oxygen. His hemoglobin is stable at 9.6, WBC 9, sodium show 133, potassium 4.7, serum creatinine 5.3, BUN 36. Urine culture came back positive for ESBL E. coli. Primary team started patient on meropenem. Patient will undergo a session of dialysis today as per his schedule 07/24/2024 Patient was seen and examined at bedside. Vitally patient was stable. However patient reported that she had episodes of rectal bleeding and also she injured her right foot. Primary team was informed about the bleeding that stopped her Eliquis and her aspirin and they put the patient on pantoprazole and consulted GI. Patient today still seems to be mildly overloaded. And her pertinent lab showed Hgb of 9.7 sodium today is 135, potassium 4.4, BUN of 33, creatinine 4.7, glucose 130, with mild elevation of AST and ALT. Patient reported significant cough primary team was informed that we will plan for the patient promethazine. 07/25/2024, patient was seen and examined at bedside. Patient denied any new symptoms however she seems to be overloaded today. Patient is getting GoLytely for preparation for the colonoscopy by Dr. Krishnamurthy. Her vital signs are within normal limits saturating 98% on 1 L of oxygen. Potassium today is 4.3, BUN of 35, creatinine 5.1, phosphorous 5.0 magnesium 2.1 calcium 9.5. Will reevaluate the patient tomorrow as she continued to get the GoLytely and will assess the patient if she needs extra session of dialysis tomorrow in addition to her dialysis today. 07/26/2024, patient was seen and examined at bedside. Patient denied any symptoms except that she was complaining of her GoLytely but she was not able to finish the whole bottle. It was noticed that the patient was taking ice and also multiple cans of 7-Up to help her with the taste of the GoLytely. Also patient was noticed to have increased lower extremity edema. For that reason, we will do extra session of dialysis for the patient to remove fluids only. Potassium 3.8, carbon dioxide 31.6, creatinine 3.8, BUN 21 calcium 9.5, magnesium 1.9, phosphorus 3.9 07/27/2024, patient was seen and examined at bedside. Denied any new symptoms. Patient has not finished her GoLytely and was not cleared by GI specialist for colonoscopy. And evaluation patient seems to be overloaded. Vitally stable however there was some mild variation in her pulse rate with drop of her heart rate to the low 40s. , Potassium 3.6, creatinine 4.4, BUN 20, phosphorus and magnesium within normal limits. Patient is scheduled for dialysis today 07/30/2023, patient was seen and examined at bedside. Yesterday night patient had a rapid if the patient developed A-fib with RVR. Patient was given 5 mg of metoprolol tartrate IV which controlled her heart rate. Blood pressure today is in the soft side 99/65. On Tuesday patient was having dialysis however her blood pressure dropped for that reason dialysis was terminated. Patient will have scheduled dialysis today. Exam Vital Signs Temp Pulse Resp BP Pulse Ox O2 Del Method O2 Flow Rate 96.6 F L 102 H 31 H 137/61 H 100 Oxy Mask 4 07/30/24 13:00 07/30/24 13:20 07/30/24 13:20 07/30/24 13:00 07/30/24 13:20 07/30/24 08:00 07/30/24 13:20 Narrative Exam GEN: AOx3, lethargic, weak pulse, obese, able to speak full sentences HEENT: NC/AC, oral mucosa moist, neck supple CVS: RRR, S1-S2 present, no murmurs appreciated RESP: Mild crackles bilaterally basally, good air entry bilaterally. GI: soft, non distended, non tender, NBS MSK: able to move all 4 limbs, +3 lower extremity edema, right foot skin abrasion minimal newly dressed. SKIN: warm and dry VICE PRINCIPAL: CN II-XII and Sensation grossly intact. Objective Labs 07/30/24 04:08 07/30/24 04:08 Labs: Laboratory Results - last 24 hr 07/29/24 07/30/24 09:39 04:08 WBC 6.7 RBC 3.00 L Hgb 9.6 L Hct 29.2 L MCV 97 MCH 32.0 MCHC 32.9 RDW Std Deviation 58.6 H Plt Count 163 Neut % (Auto) 87 H Lymph % (Auto) 9 L Craig % (Auto) 4 Eos % (Auto) 0 Baso % (Auto) 0 Neut # (Auto) 5.8 Lymph # (Auto) 0.6 L Craig # (Auto) 0.2 Eos # (Auto) 0.0 Baso # (Auto) 0.0 Immature Gran # (Auto) 0.05 H Absolute Nucleated RBC 0.02 H Immature Gran % 1 H Nucleated RBC % 0 Sodium 136 Potassium 3.5 Chloride 96 L Carbon Dioxide 25.8 Anion Gap 14 BUN 31 H Creatinine 6.4 H* D Estim Creat Clear Calc 10.8 L eGFR 7 L* BUN/Creatinine Ratio 5 L Glucose 148 H Calculated Osmolality 281 Calcium 10.1 Corrected Calcium 10.6 H Phosphorus 5.9 H Magnesium 2.4 Total Bilirubin 0.6 AST 115 H ALT 120 H Alkaline Phosphatase 123 H Total Protein 6.1 Albumin 3.4 Globulin 2.7 Albumin/Globulin Ratio 1.3 TSH 31.69 H D Free T4 0.60 L 0.74 L Digoxin 1.2 ABG Interpretation ABG results: 07/28/24 07/29/24 08:37 09:28 ABG pH 7.49 H ABG pCO2 35 ABG pO2 69 L ABG HCO3 27 H ABG O2 Saturation 95 ABG Base Excess 3 VBG pH 7.46 VBG pCO2 28 L VBG pO2 155 H VBG Base Excess -3 Quality Measures Quality Measures VTE prophylaxis Advance care planning discussed with:: patient Assessment & Plan Assessment Current Active Medications: Generic Name Dose Route Start Last Admin Trade Name Freq PRN Reason Stop Dose Admin Acetaminophen 650 mg 07/27/24 16:15 07/30/24 05:53 Acetaminophen 325 Mg Tablet PO 08/26/24 16:12 650 mg Q4HR PRN Administration mild pain 1-3 or Fever >100.4 Al Hydrox/Mg Hydrox/Simethicone 30 ml 07/27/24 18:41 07/30/24 13:52 Mg Hyd/Al Hyd/Alfredo (Maalox Reg) Susp 30 Ml Udc PO 08/26/24 18:40 30 ml QID PRN Administration UPSET STOMACH/INDIGESTION Apixaban 2.5 mg 07/22/24 09:00 07/30/24 09:09 Apixaban 2.5 Mg Tablet PO 08/21/24 08:59 2.5 mg BID KOTA Administration Aspirin 81 mg 07/22/24 09:00 07/30/24 09:09 Aspirin Ec 81 Mg Tabec PO 08/21/24 08:59 81 mg QDAY KOTA Administration Benzonatate 100 mg 07/21/24 11:42 07/26/24 19:45 Benzonatate 100 Mg Capsule PO 08/20/24 11:41 100 mg Q8HR PRN Administration COUGH Protocol Dextrose 25 ml 07/20/24 15:46 Dextrose 50%-Water Inj 50 Ml Syringe IV 08/19/24 15:45 Q15MIN PRN BG 50-70 responsive npo pt Dextrose 50 ml 07/20/24 15:46 07/21/24 07:46 Dextrose 50%-Water Inj 50 Ml Syringe IV 08/19/24 15:45 50 ml Q15MIN PRN Administration BG <50 OR BG <70 & pt unresponsive Digoxin 0.125 mg 07/29/24 08:00 07/29/24 08:57 Digoxin 0.125 Mg Tablet PO 08/28/24 07:59 0.125 mg Q48H KOTA Administration Glucagon 1 mg 07/20/24 15:46 Glucagon Inj 1 Mg Vial IM Q15MIN PRN BG <70, and no IV access Guaifenesin/Dextromethorphan 1 each 07/20/24 16:08 Guaifenesin/Dm Tablet PO 08/19/24 16:07 Q4HR PRN COUGH Protocol Albumin Human 25 gm in 100 mls @ 100 mls/min 07/20/24 17:18 07/30/24 09:52 Albuminar-25 Ivpb IV 100 mls/min PRN PRN Administration DIALYSIS Insulin Human Lispro 0 unit 07/20/24 17:00 07/30/24 08:06 Insulin Lispro (Admelog) 1 Unit/0.01 Ml Unit SC 08/19/24 16:59 2 unit ACHS KOTA Administration Protocol Insulin Human Lispro 5 unit 07/20/24 17:00 07/21/24 08:09 Insulin Lispro (Admelog) 1 Unit/0.01 Ml Unit SC 08/19/24 16:59 Not Given ACHS KOTA Ipratropium [place] 0.5 mg 07/20/24 19:00 07/30/24 13:18 Ipratropium Rt 0.5 Mg/ 2.5 Ml Nebu INH 08/19/24 18:59 0.5 mg Q6HRRT KOTA Administration Levalbuterol HCl 0.63 mg 07/21/24 10:00 07/30/24 13:18 Levalbuterol Rt 0.63 Mg/3 Ml Nebu INH 08/20/24 09:59 0.63 mg Q6HRRT KOTA Administration Levothyroxine Sodium 75 mcg 07/30/24 06:00 07/30/24 05:54 Levothyroxine Sodium 25 Mcg Tablet PO 08/29/24 05:59 75 mcg ACBR KOTA Administration Melatonin 3 mg 07/21/24 00:29 07/27/24 21:19 Melatonin 3 Mg Tablet PO 08/20/24 20:59 3 mg HS PRN Administration SLEEPLESSNESS Midodrine 15 mg 07/29/24 14:00 07/30/24 05:53 Midodrine 5 Mg Tablet PO 08/28/24 13:59 15 mg TID KOTA Administration Pantoprazole Sodium 40 mg 07/24/24 08:55 07/30/24 09:09 Pantoprazole Inj 40 Mg Vial IV 08/23/24 08:54 40 mg QDAY KOTA Administration Promethazine HCl/Dextromethorphan 5 ml 07/24/24 10:29 07/25/24 23:52 Promethazine/Dm Syrup 5 Ml Dose PO 08/23/24 10:28 5 ml Q6HR PRN Administration COUGH OR CONGESTION Protocol Sevelamer Carbonate 800 mg 07/30/24 08:00 07/30/24 13:52 Sevelamer Carbonate 800 Mg Tablet PO 08/29/24 07:59 800 mg TIDWM KOTA Administration Simethicone 80 mg 07/30/24 13:07 Simethicone 80 Mg Chew PO 08/29/24 13:06 QID PRN GAS Plan Assessment and plan Summary: A 67 y/o female patient with significant medical history for ESRD on HD (MWF), DM2, HTN, CAD, Afib on Eliquis, CHF and left renal neoplasm s/p nephrectomy (on 05/14/23) BIBA to ED for shortness of breath, fever . nephrology was consulted due to patient's ESRD. #ESRD on hemodialysis M/W/F # Left Nephrectomy- Renal neoplasm Today patient was noticed to be overloaded for that reason patient will have extra session of dialysis today. 07/27 in/o 1700 mL over the past 24 hours Plan ? Dialysis today, will continue other sessions of dialysis as per schedule ? Strict in and out ? Pharmacy to dose medications #GI bleeding would likely depression or colonoscopy # Pneumonia # UTI # Hypothyroidism #DM #Afib #CAD// CHF Plan ? Follow-up with the primary team recommendations Thank you for the consultation, please do not hesitate to ask or reach out if you have any question or concerns - Patient's plan and care discussed with my attending, Dr. Audrey Miles MD Internal Medicine PGY-2 Attending Provider Attestation/Addendum Patient seen and examined with resident physician Dr. Ray. Note reviewed, agree with findings and recommendations. Blood pressure seems to be still on the lower side. However patient in fluid overload. Will continue with dialysis Patient on dialysis. Tolerating dialysis without any problems. Hemodialysis for 3 hours, 2K, ultrafiltration 1-1.5 L, Epogen 6000, no heparin ordered. Plan of care discussed with the dialysis nurse. Please see dialysis flowsheet for further details.
--- NOTE | 2024-07-30 15:10 | XR_ITS ---
Examination: Abdomen sonogram, Limited Date and time of exam: July 30, 2024 at 1521 hours INDICATIONS: Right lower abdominal pain and tenderness beginning one week ago Technique: Real-time daniel scale transabdominal sonographic images of the lower abdomen obtained. Findings: No sonographic visualization appendix Mild free fluid in the lower abdomen IMPRESSION: No sonographic visualization appendix
--- NOTE | 2024-07-30 19:59 | ESPR_ITS ---
Documentation for date of: 07/30/24 Subjective Subjective Interval history: Patient evaluated Hemoglobin hematocrit 9.6 and 29.2 She went into atrial fibrillation with RVR requiring IV metoprolol Exam Vital Signs Temp Pulse Resp BP Pulse Ox O2 Del Method O2 Flow Rate 98.2 F 111 H 24 H 102/77 93 L Oxy Mask 4 07/30/24 16:00 07/30/24 16:00 07/30/24 16:00 07/30/24 16:00 07/30/24 16:00 07/30/24 16:00 07/30/24 16:00 Constitutional Comments: Chronically ill-appearing Routine Respiratory Exam Comments: Normal to auscultation Routine Abdominal Exam Comments: Soft nontender Objective Labs 07/30/24 04:08 07/30/24 04:08 Labs: Laboratory Results - last 24 hr 07/30/24 04:08 WBC 6.7 RBC 3.00 L Hgb 9.6 L Hct 29.2 L MCV 97 MCH 32.0 MCHC 32.9 RDW Std Deviation 58.6 H Plt Count 163 Neut % (Auto) 87 H Lymph % (Auto) 9 L [place] % (Auto) 4 Eos % (Auto) 0 Baso % (Auto) 0 Neut # (Auto) 5.8 Lymph # (Auto) 0.6 L [place] # (Auto) 0.2 Eos # (Auto) 0.0 Baso # (Auto) 0.0 Immature Gran # (Auto) 0.05 H Absolute Nucleated RBC 0.02 H Immature Gran % 1 H Nucleated RBC % 0 Sodium 136 Potassium 3.5 Chloride 96 L Carbon Dioxide 25.8 Anion Gap 14 BUN 31 H Creatinine 6.4 H* D Estim Creat Clear Calc 10.8 L eGFR 7 L* BUN/Creatinine Ratio 5 L Glucose 148 H Calculated Osmolality 281 Calcium 10.1 Corrected Calcium 10.6 H Phosphorus 5.9 H Magnesium 2.4 Total Bilirubin 0.6 AST 115 H ALT 120 H Alkaline Phosphatase 123 H Total Protein 6.1 Albumin 3.4 Globulin 2.7 Albumin/Globulin Ratio 1.3 Free T4 0.74 L Digoxin 1.2 Impressions Impression: # Anemia blood loss # Atrial fibrillation with RVR ABG Interpretation ABG results: 07/28/24 07/29/24 08:37 09:28 ABG pH 7.49 H ABG pCO2 35 ABG pO2 69 L ABG HCO3 27 H ABG O2 Saturation 95 ABG Base Excess 3 VBG pH 7.46 VBG pCO2 28 L VBG pO2 155 H VBG Base Excess -3 Assessment & Plan A&P Chelo Izaguirre is a 67 y/o female from [facility] with a past medical history of DM type II, HTN, ESRD on HD MWF, CAD, CHF, atrial fibrillation on Eliquis, left renal neoplasm s/p nephrectomy who is admitted for Afib w/RVR. #A-fib with RVR #History of cardiac arrest #Hypotension #Asymptomatic bradycardia, resolved CHADVASC score: 5 points, 7.2% stroke risk per year HAS-BLED score: 4 points Pt is rate controlled at this time and on Eliquis, rate 90s-100s still in afib Concern for thyroid issues due to amio custodial use, will continue with beta patti and titrate doses as needed Patient can be given midodrine 2.5 to 5 mg 15 to 30 minutes prior dialysis sessions if she goes hypotensive Patient had previous cardiac arrest in 2019 upon chart records, however not much information to be extrapolated from chart review Amiodarone was discontinued during this admission in the setting of abnormal thyroid function test with elevated TSH of 117. Continue to hold off on the amiodarone. Patient blood pressure was also soft and was hypotensive. Patient was on metoprolol XL 50 mg once daily. Digoxin also was stopped during this admission initially. Patient was being prepped for possible colonoscopy with greatly over the last couple of days but patient has not been able to drink the complete fluids. Given the GoLytely prep which can also cause severe electrolyte abnormalities, stopping of the amiodarone as well as the digoxin and the dialysis which could also cause significant fluid shifts patient probably reverted back into atrial fibrillation with RVR. Stopped metoprolol, started on digoxin renal dosing and continue to hold on amiodarone. Plan: Continue Eliquis 5 mg twice daily if no other procedures planned Telemetry reviewed and patient heart rate is now better controlled between 80- 100 bpm Recommend to continue digoxin 125 mcg every other day and check digoxin level every 7 days. Keep potassium in the normal range between 3.5-5 and avoid hypokalemia and hyperkalemia to avoid any kind of dig toxicity as the patient is also on hemodialysis. Will hold off on the amiodarone given her abnormal thyroid function test with signs and symptoms of myxedema. Hold off on the metoprolol XL as the patient is hypotensive. Patient continues to be hypoxic today and is oxygen via Ventimask at 10 L. Patient apparently was lethargic this morning and primary team did consult ICU as the patient is also hypotensive Patient was given levothyroxine 100 mcg x 1 and also hydrocortisone 100 mg x 1 and started on midodrine 10 mg 3 times daily for now. During my examination patient appears to be awake alert and able to answer questions but still appears to be in respiratory distress. On examination patient still continues to have significant edema and chest x-ray does show worsening bilateral pleural effusions. Patient will need dialysis and will need possible pressure support. All antihypertensives were discontinued. Discussed with the primary team again to speak with endocrinology to increase the dose of levothyroxine at least to 75 mcg once daily and 100 mcg once daily given her overall presentation of severe hypothyroidism which is contributing to her clinical status at the present point of time. Patient did not have any of the session of dialysis as the patient continues to be mildly hypotensive. #History of CAD #History of chronic HFrEF with systolic dysfunction and dilated left ventricle and wall motion abnormalities #Trace pericardial effusion #Elevated troponins, NSTEMI type II, resolved Echo shows dilated left ventricle with mild global hypokinesis and moderate systolic dysfunction 35 to 40% for EF. She also has right ventricle systolic pressure of 62 and severe MAC, pleural effusion present in trace pericardial effusion. Plan: ?Continue with aspirin ?Continue with GDMT therapy as able, on metoprolol 50 XL at this point #History of type 2 diabetes #History of hypertension A1c 6.1 Plan: ? Resume home medicines when able #ESRD, on HD Tuesday #hx of L nephroectomy #Lower extremity edema Likely related due to patient not getting enough dialysis Dr. Fields sees pt, says she goes for diaylsis 4x a week Plan: ? Nephrology on consult, appreciate recs #? GI bleed Hemoglobin around 10, FOBT positive recently Patient is on GoLytely prep, still not finished prep, refusing NG tube at this time Plan: ? 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 Thank you for the consult and allowing me to participate in the care of the patient. Cardiology will continue to follow. Orestes Dudley M.D. Interventional Cardiology Time Spent With Patient Time: Total time spent is greater than 50% in coordination of care (as documented) at patient's floor/unit and/or counseling patient:
[2024-07-31] VITALS (15 sets, daily range): BP systolic 90–119; BP diastolic 58–85; PULSE 60–113; RESP 2–22; TEMP 36–36.6; O2SAT 91–100; BMI 31.8
[2024-07-31] MEDS: IPRATROPIUM RT 0.5 MG/ 2.5 ML NEBU INH ×2 (02:25→06:37)
[2024-07-31] MEDS: LEVALBUTEROL RT 0.63 MG/3 ML NEBU INH ×2 (02:26→06:37)
[2024-07-31] MEDS: MIDODRINE 5 MG TABLET 15 MG PO ×3 (05:09→21:21)
[2024-07-31] MEDS: LEVOTHYROXINE SODIUM 25 MCG TABLET 75 MCG PO (05:09)
[2024-07-31 06:07] LABS: Basophils % (Auto) 0 % (0-2.5); Eosinophils % (Auto) 1 % (0-10); Hematocrit 32.1 % (36.0-46.0); Hemoglobin 10.3 g/dL (12.0-16.0); Immature Granulocytes % (Auto) 0 % (0-0); Immature Granulocytes Auto 0.01 Thou/mm3 (0.00-0.00); Lymphocytes # (Auto) 0.6 Thou/mm3 (1.0-4.8); Lymphocytes % (Auto) 13 % (10-50); Mean Corpuscular HGB Conc 32.1 g/dl (31.0-37.0); Mean Corpuscular Hemoglobin 31.5 pg (25.0-35.0); Mean Corpuscular Volume 98 fL (80-100); Monocytes # (Auto) 0.2 Thou/mm3 (0.0-0.8); Monocytes % (Auto) 5 % (0-12); Neutrophils # (Auto) 3.8 Thou/mm3 (1.8-7.7); Neutrophils % (Auto) 81 % (37-80); Nucleated Red Blood Cell # 0.05 Thou/mm3 (0.00-0.00); Nucleated Red Blood Cell % 1 /100 WBC (0); Platelet Count 181 Thou/mm3 (140-440); RDW Standard Deviation 62.4 fL (36.4-46.3); Red Blood Count 3.27 Miln/mm3 (4.00-5.20); White Blood Count 4.6 Thou/mm3 (3.6-11.0)
[2024-07-31 06:58] LABS: Alanine Aminotransferase 93 U/L (10-49); Albumin, Serum 3.7 gm/dL (3.4-4.8); Albumin/Globulin Ratio 1.4 (1.2-2.2); Alkaline Phosphatase 146 U/L (46-116); Anion Gap 14 (7-16); Aspartate Amino Transferase 67 U/L (0-34); BUN/Creatinine Ratio 4 Ratio (12-20); Bilirubin,Total 0.7 mg/dL (0.3-1.2); Blood Urea Nitrogen 23 mg/dL (9-23); Calcium 9.9 mg/dL (8.3-10.6); Calcium (Corrected) 10.1 mg/dL (8.5-10.1); Carbon Dioxide 24.8 mMol/L (20.0-31.0); Chloride 98 mMol/L (98-107); Creatinine (Component) 5.2 mg/dL (0.6-1.3); Estimated Creatinine Clearance 12.8 mL/min (>60); Free T4 (Free Thyroxine) 0.67 ng/dL (0.89-1.76); Globulin 2.7 gm/dL (2.3-3.5); Glucose 150 mg/dL (74-106); Magnesium 2.1 mg/dL (1.6-2.6); Osmolality,Calculated 280 (275-295); Phosphorous 3.8 mg/dL (2.4-5.1); Potassium 3.1 mMol/L (3.4-5.1); Sodium 137 mMol/L (136-145); Total Protein 6.4 gm/dL (5.7-8.2); eGFR 9 See Note
[2024-07-31] MEDS: INSULIN LISPRO (AdmeLOG) 1 UNIT/0.01 ML UNIT SC ×3 (08:11→17:54)
[2024-07-31] MEDS: SEVELAMER CARBONATE 800 MG TABLET PO ×2 (09:04→12:21)
[2024-07-31] MEDS: APIXABAN 2.5 MG TABLET PO ×2 (09:04→21:20)
[2024-07-31] MEDS: ASPIRIN EC 81 MG TABEC PO (09:04)
[2024-07-31] MEDS: PANTOPRAZOLE INJ 40 MG VIAL IV (09:04)
[2024-07-31] MEDS: DIGOXIN 0.125 MG TABLET PO (09:05)
[2024-07-31] MEDS: POTASSIUM CHLORIDE 20 mEq TABCR 40 MEQ PO (09:12)
[2024-07-31] MEDS: POTASSIUM CHLORIDE 10% 20 MEQ/15 ML UDC 40 MEQ PO (09:13)
--- NOTE | 2024-07-31 09:39 | EKG_ITS ---
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
--- NOTE | 2024-07-31 09:52 | ESPR_ITS ---
Documentation for date of: 07/31/24 Subjective Subjective Interval history: 07/30/2024: Pt examined at bedside today. Overnight event pt having rapid, afib rate in 150s was given metoprolol 5 mg IV, and was put on oxymask which brought pt's HR 100s-110s. Pt reports she is doing okay. She feels more weak at this time and is requesting for her to close her door once our examination was finished. She is agreeable to diaylsis today, BUN 31 and Cr 6.4, Phos 5.9, Potassium 3.5 and Mg 2.4. She denies any CP at this time. No other complaints. We will continue to do dialysis today, with goals of 1-2L as pt has been experiencing hypotension 07/31/2024: Patient examined at bedside today. Overnight patient appears to be rate controlled in the 100s. Patient reports she is feeling weak today, and is still feeling shortness of breath. She denies having any chest pain or palpitations. BUN/creatinine of 23 and 5.2, potassium 3.1 (repleted with 40 mEq), magnesium of 2.1 phosphorus of 3.8 (on Sevelamer). White count of 4.6, hemoglobin of 2.3. Patient seems to be in some shortness of breath, and still feeling lethargic. Will reassess respiratory status and try to ambulate patient more. Patient had 1 L removed yesterday during dialysis. Blood pressure still appears to be a bit soft, 93/62. Exam Vital Signs Temp Pulse Resp BP Pulse Ox O2 Del Method O2 Flow Rate 96.8 F 88 22 H 101/64 100 Oxy Mask 3 07/31/24 04:00 07/31/24 09:05 07/31/24 06:37 07/31/24 09:05 07/31/24 06:37 07/31/24 04:00 07/31/24 06:37 Narrative Exam General: AAOx3, a bit mild distress, seems a bit tired and lethargic HEENT: Moist mucous membranes, conjunctiva clear, EOMI, PERRLA, Cardiovascular: S1, S2, radial pulses +2 bilat, irregularly irregular Pulmonary: CTAB bilat no cough, no wheezing, wearing oxymask 3 L GI: No tenderness to light or deep palpitation, no guarding, rigidity, rebound tenderness or distension Extremities: +2 pitting edema in lower extremities bilaterally, dorsalis pedis pulses +2 bilaterally Neuro: AAOx3, no focal motor or sensory deficits in the UE or LE bilat Psych: Cooperative Objective Labs 07/31/24 05:39 07/31/24 05:39 Labs: Laboratory Results - last 24 hr 07/31/24 05:39 WBC 4.6 RBC 3.27 L Hgb 10.3 L Hct 32.1 L MCV 98 MCH 31.5 MCHC 32.1 RDW Std Deviation 62.4 H Plt Count 181 Neut % (Auto) 81 H Lymph % (Auto) 13 [place]ata[place] % (Auto) 5 Eos % (Auto) 1 Baso % (Auto) 0 Neut # (Auto) 3.8 Lymph # (Auto) 0.6 L [place] # (Auto) 0.2 Eos # (Auto) 0.0 Baso # (Auto) 0.0 Immature Gran # (Auto) 0.01 H Absolute Nucleated RBC 0.05 H Immature Gran % 0 Nucleated RBC % 1 H Sodium 137 Potassium 3.1 L Chloride 98 Carbon Dioxide 24.8 Anion Gap 14 BUN 23 Creatinine 5.2 H* D Estim Creat Clear Calc 12.8 L eGFR 9 L* BUN/Creatinine Ratio 4 L Glucose 150 H Calculated Osmolality 280 Calcium 9.9 Corrected Calcium 10.1 Phosphorus 3.8 Magnesium 2.1 Total Bilirubin 0.7 AST 67 H ALT 93 H Alkaline Phosphatase 146 H D Total Protein 6.4 Albumin 3.7 Globulin 2.7 Albumin/Globulin Ratio 1.4 Free T4 0.67 L ABG Interpretation ABG results: 07/28/24 07/29/24 08:37 09:28 ABG pH 7.49 H ABG pCO2 35 ABG pO2 69 L ABG HCO3 27 H ABG O2 Saturation 95 ABG Base Excess 3 VBG pH 7.46 VBG pCO2 28 L VBG pO2 155 H VBG Base Excess -3 Quality Measures Quality Measures VTE prophylaxis Advance care planning discussed with:: patient Assessment & Plan Assessment Current Active Medications: Generic Name Dose Route Start Last Admin Trade Name Freq PRN Reason Stop Dose Admin Acetaminophen 650 mg 07/27/24 16:15 07/30/24 05:53 Acetaminophen 325 Mg Tablet PO 08/26/24 16:12 650 mg Q4HR PRN Administration mild pain 1-3 or Fever >100.4 Al Hydrox/Mg Hydrox/Simethicone 30 ml 07/27/24 18:41 07/30/24 13:52 Mg Hyd/Al Hyd/Alfredo (Maalox Reg) Susp 30 Ml Udc PO 08/26/24 18:40 30 ml QID PRN Administration UPSET STOMACH/INDIGESTION Apixaban 2.5 mg 07/22/24 09:00 07/31/24 09:04 Apixaban 2.5 Mg Tablet PO 08/21/24 08:59 2.5 mg BID KOTA Administration Aspirin 81 mg 07/22/24 09:00 07/31/24 09:04 Aspirin Ec 81 Mg Tabec PO 08/21/24 08:59 81 mg QDAY KOTA Administration Benzonatate 100 mg 07/21/24 11:42 07/26/24 19:45 Benzonatate 100 Mg Capsule PO 08/20/24 11:41 100 mg Q8HR PRN Administration COUGH Protocol Dextrose 25 ml 07/20/24 15:46 Dextrose 50%-Water Inj 50 Ml Syringe IV 08/19/24 15:45 Q15MIN PRN BG 50-70 responsive npo pt Dextrose 50 ml 07/20/24 15:46 07/21/24 07:46 Dextrose 50%-Water Inj 50 Ml Syringe IV 08/19/24 15:45 50 ml Q15MIN PRN Administration BG <50 OR BG <70 & pt unresponsive Digoxin 0.125 mg 07/29/24 08:00 07/31/24 09:05 Digoxin 0.125 Mg Tablet PO 08/28/24 07:59 0.125 mg Q48H KOTA Administration Glucagon 1 mg 07/20/24 15:46 Glucagon Inj 1 Mg Vial IM Q15MIN PRN BG <70, and no IV access Guaifenesin/Dextromethorphan 1 each 07/20/24 16:08 Guaifenesin/Dm Tablet PO 08/19/24 16:07 Q4HR PRN COUGH Protocol Albumin Human 25 gm in 100 mls @ 100 mls/min 07/20/24 17:18 07/30/24 19:20 Albuminar-25 Ivpb IV Infused PRN PRN Infusion DIALYSIS Insulin Human Lispro 0 unit 07/20/24 17:00 07/31/24 08:11 Insulin Lispro (Admelog) 1 Unit/0.01 Ml Unit SC 08/19/24 16:59 2 unit ACHS KOTA Administration Protocol Insulin Human Lispro 5 unit 07/20/24 17:00 07/21/24 08:09 Insulin Lispro (Admelog) 1 Unit/0.01 Ml Unit SC 08/19/24 16:59 Not Given ACHS KOTA Ipratropium [place] 0.5 mg 07/20/24 19:00 07/31/24 06:37 Ipratropium Rt 0.5 Mg/ 2.5 Ml Nebu INH 08/19/24 18:59 0.5 mg Q6HRRT KOTA Administration Levalbuterol HCl 0.63 mg 07/21/24 10:00 07/31/24 06:37 Levalbuterol Rt 0.63 Mg/3 Ml Nebu INH 08/20/24 09:59 0.63 mg Q6HRRT KOTA Administration Levothyroxine Sodium 75 mcg 07/30/24 06:00 07/31/24 05:09 Levothyroxine Sodium 25 Mcg Tablet PO 08/29/24 05:59 75 mcg ACBR KOTA Administration Melatonin 3 mg 07/21/24 00:29 07/27/24 21:19 Melatonin 3 Mg Tablet PO 08/20/24 20:59 3 mg HS PRN Administration SLEEPLESSNESS Midodrine 15 mg 07/29/24 14:00 07/31/24 05:09 Midodrine 5 Mg Tablet PO 08/28/24 13:59 15 mg TID KOTA Administration Pantoprazole Sodium 40 mg 07/24/24 08:55 07/31/24 09:04 Pantoprazole Inj 40 Mg Vial IV 08/23/24 08:54 40 mg QDAY KOTA Administration Promethazine HCl/Dextromethorphan 5 ml 07/24/24 10:29 07/25/24 23:52 Promethazine/Dm Syrup 5 Ml Dose PO 08/23/24 10:28 5 ml Q6HR PRN Administration COUGH OR CONGESTION Protocol Sevelamer Carbonate 800 mg 07/30/24 08:00 07/31/24 09:04 Sevelamer Carbonate 800 Mg Tablet PO 08/29/24 07:59 800 mg TIDWM KOTA Administration Simethicone 80 mg 07/30/24 13:07 Simethicone 80 Mg Chew PO 08/29/24 13:06 QID PRN GAS Plan Assessment Zina is a 67 y/o female from [facility] with a past medical history of DM type II, HTN, ESRD on HD MWF, CAD, CHF, atrial fibrillation on Eliquis, left renal neoplasm s/p nephrectomy who is admitted for Afib w/RVR. 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 Continue to hold off on the amiodarone. Patient blood pressure was also soft and was hypotensive. Patient was on metoprolol XL 50 mg once daily. Digoxin also was stopped during this admission initially. Patient to get digoxin today Plan: Continue Eliquis 5 mg twice daily Continue digoxin 125 mcg every other day and check digoxin level every 7 days. Keep potassium in the normal range between 3.5-5 and avoid hypokalemia and hyperkalemia to avoid any kind of dig toxicity as the patient is also on hemodialysis. Pt can be give IV amio if pt's patient goes into Afib with RVR We will hold off on metoprolol because of BP #History of CAD #History of chronic HFrEF with systolic dysfunction and dilated left ventricle and wall motion abnormalities #Trace pericardial effusion #Elevated troponins, NSTEMI type II, resolved Echo shows dilated left ventricle with mild global hypokinesis and moderate systolic dysfunction 35 to 40% for EF. She also has right ventricle systolic pressure of 62 and severe MAC, pleural effusion present in trace pericardial effusion. Blood pressure is still soft today Plan: ?Continue with aspirin ?Continue with GDMT therapy as able #Acute acute hypoxic respiratory failure secondary to #Bilateral pleural effusions Patient requiring more oxygen at this time, does not use home oxygen Patient may benefit from therapeutic thoracentesis, however patient may not tolerate procedure Plan: ? Consider thoracentesis #History of type 2 diabetes #History of hypertension A1c 6.1 Plan: ? Resume home medicines when able, handled by primary #ESRD, on HD Tuesday #hx of L nephroectomy #Lower extremity edema Likely related due to patient not getting enough dialysis Dr. Fields sees pt, says she goes for diaylsis 4x a week Plan: ? Nephrology on consult, appreciate recs #? GI bleed Hemoglobin ~10, FOBT positive recently Patient is on GoLytely prep, still not finished prep, refusing NG tube at this time Plan: ?Outpatient colonoscopy #Hypothyroidism TSH ~32, free T4 0.74 No hx of hypothyroidism in the past Pt's BP could be low because of this as well Hypothyroidism could be from long-term Amio use, Will not resume Was given 100 mcg IV of synthroid and 100 mg IV hydrocortisone Curbsided Endo and ICU with above recommendations Plan: Continue with 75 mcg PO Synthroid Patient seen and care discussed with my attending physician, Dr. Octavia Mcmahon, PGY-1 Attending Provider Attestation/Addendum I reviewed the resident Dr. Steiner consultation progress note and agree with the resident findings and plan in the note above and have also edited the documentation to reflect my findings and plan. Orestes Dudley M.D. Interventional Cardiology
--- NOTE | 2024-07-31 13:01 | PC.SS ---
SS follow up note; Patient's blood pressure continues to be low.
--- NOTE | 2024-07-31 13:11 | ESPR_ITS ---
<Statement entered by Brandon Montero MD - 07/31/24 15:06> Patient was seen and examined at bedside this morning. Patient continues to remain hypotensive however MAP is above 65. Patient was complaining of abdominal discomfort. Her free T4 came back 0.6. Potassium was low however she will receive her dialysis tomorrow per schedule. Dr. English, hand cell tuber was curb sided and he recommended to go up on dose of levothyroxine to 88 mcg and give her additional dose of 50 mcg today. Consider checking her TSH and free T4 tomorrow morning and we can increase the dose to 100 mcg if it does not improve tomorrow. No recommendations for steroids at this point. Recommended to give levothyroxine 1 hour before food intake and 4 hours before other medications. Patient already completed course of Zosyn for pneumonia. Will await for cardiology recommendations. All labs and orders were reviewed. I saw and examined the patient, and I agree with current management stated by Dr Brittney MD,PGY1. Plan of care was discussed with the attending physician and resident physician. Disclaimer: Despite multiple revisions, due to the dictation software being used, the document bellow may not be free of grammatical errors including phonetic/typographic errors. However, this does not deter from our commitment to providing health care in the patient's best interest in mind. Dr. Lauren MD, PGY 2 Documentation for date of: 07/31/24 Subjective Subjective Interval history: No overnight events reported. Patient reported 2 episodes of diarrhea with no melena or hemetochezia reported. Denied chest pain and improved dyspnea. On tele box, bradycardia noted, but tele monitor showed HR in 100s and still with Afib. EKG obtained. Additional Levothryroxine given 50 mcg X1 and increased Levothyroxine to 88 mcg ACBR starting tomorrow. Follow up with TSH and Free T4. Exam Vital Signs Temp Pulse Resp BP Pulse Ox O2 Del Method O2 Flow Rate 97.6 F 98 19 101/64 100 Oxy Mask 3 07/31/24 08:00 07/31/24 09:30 07/31/24 08:00 07/31/24 09:05 07/31/24 08:00 07/31/24 08:00 07/31/24 08:00 Narrative Exam General Appearance: Alert & Oriented X3, well-nourished female who is lying in bed in no acute distress but drowsy but responsive to verbal command. HEENT: Skull symmetrical and atraumatic. Conjunctivae pin and moist. Pupils equal, round, reactive to light and accommodation (PERRL). External ear without lesion or discharge. Straight, nares patient, mucosa pink, no discharge. No thyroid nodule appreciated. No cervical lymphadenopathy. Cardio: Normal Rate and Rhythm with S1 and S2 heart sounds. No murmurs or extra heart sounds auscultated. No bruits on carotid auscultation. Edema +3 Lungs: Symmetric with good expansion. Chest and back non-tender. Breath sounds vesicular with improved crackles Abdomen: Mild tenderness, Non-distended, Normal Reactive Bowel Sounds Neuro: Alert, cooperative, oriented to person, place, and time. Speech clear. CN grossly intact. Upper motor strength 5/5 and Lower motor strength 5/5. Sensation intact. Objective Labs 08/01/24 05:07 08/01/24 05:07 Labs: Laboratory Results - last 24 hr 07/31/24 05:39 WBC 4.6 RBC 3.27 L Hgb 10.3 L Hct 32.1 L MCV 98 MCH 31.5 MCHC 32.1 RDW Std Deviation 62.4 H Plt Count 181 Neut % (Auto) 81 H Lymph % (Auto) 13 [place] % (Auto) 5 Eos % (Auto) 1 Baso % (Auto) 0 Neut # (Auto) 3.8 Lymph # (Auto) 0.6 L [place] # (Auto) 0.2 Eos # (Auto) 0.0 Baso # (Auto) 0.0 Immature Gran # (Auto) 0.01 H Absolute Nucleated RBC 0.05 H Immature Gran % 0 Nucleated RBC % 1 H Sodium 137 Potassium 3.1 L Chloride 98 Carbon Dioxide 24.8 Anion Gap 14 BUN 23 Creatinine 5.2 H* D Estim Creat Clear Calc 12.8 L eGFR 9 L* BUN/Creatinine Ratio 4 L Glucose 150 H Calculated Osmolality 280 Calcium 9.9 Corrected Calcium 10.1 Phosphorus 3.8 Magnesium 2.1 Total Bilirubin 0.7 AST 67 H ALT 93 H Alkaline Phosphatase 146 H D Total Protein 6.4 Albumin 3.7 Globulin 2.7 Albumin/Globulin Ratio 1.4 Free T4 0.67 L ABG Interpretation ABG results: 07/28/24 07/29/24 08:37 09:28 ABG pH 7.49 H ABG pCO2 35 ABG pO2 69 L ABG HCO3 27 H ABG O2 Saturation 95 ABG Base Excess 3 VBG pH 7.46 VBG pCO2 28 L VBG pO2 155 H VBG Base Excess -3 Quality Measures Quality Measures VTE prophylaxis Advance care planning discussed with:: other Assessment & Plan Assessment Current Active Medications: Generic Name Dose Route Start Last Admin Trade Name Freq PRN Reason Stop Dose Admin Acetaminophen 650 mg 07/27/24 16:15 07/30/24 05:53 Acetaminophen 325 Mg Tablet PO 08/26/24 16:12 650 mg Q4HR PRN Administration mild pain 1-3 or Fever >100.4 Al Hydrox/Mg Hydrox/Simethicone 30 ml 07/27/24 18:41 07/30/24 13:52 Mg Hyd/Al Hyd/Alfredo (Maalox Reg) Susp 30 Ml Udc PO 08/26/24 18:40 30 ml QID PRN Administration UPSET STOMACH/INDIGESTION Apixaban 2.5 mg 07/22/24 09:00 07/31/24 09:04 Apixaban 2.5 Mg Tablet PO 08/21/24 08:59 2.5 mg BID KOTA Administration Aspirin 81 mg 07/22/24 09:00 07/31/24 09:04 Aspirin Ec 81 Mg Tabec PO 08/21/24 08:59 81 mg QDAY KOTA Administration Benzonatate 100 mg 07/21/24 11:42 07/26/24 19:45 Benzonatate 100 Mg Capsule PO 08/20/24 11:41 100 mg Q8HR PRN Administration COUGH Protocol Dextrose 25 ml 07/20/24 15:46 Dextrose 50%-Water Inj 50 Ml Syringe IV 08/19/24 15:45 Q15MIN PRN BG 50-70 responsive npo pt Dextrose 50 ml 07/20/24 15:46 07/21/24 07:46 Dextrose 50%-Water Inj 50 Ml Syringe IV 08/19/24 15:45 50 ml Q15MIN PRN Administration BG <50 OR BG <70 & pt unresponsive Digoxin 0.125 mg 07/29/24 08:00 07/31/24 09:05 Digoxin 0.125 Mg Tablet PO 08/28/24 07:59 0.125 mg Q48H KOTA Administration Glucagon 1 mg 07/20/24 15:46 Glucagon Inj 1 Mg Vial IM Q15MIN PRN BG <70, and no IV access Guaifenesin/Dextromethorphan 1 each 07/20/24 16:08 Guaifenesin/Dm Tablet PO 08/19/24 16:07 Q4HR PRN COUGH Protocol Albumin Human 25 gm in 100 mls @ 100 mls/min 07/20/24 17:18 07/30/24 19:20 Albuminar-25 Ivpb IV Infused PRN PRN Infusion DIALYSIS Insulin Human Lispro 0 unit 07/20/24 17:00 07/31/24 12:20 Insulin Lispro (Admelog) 1 Unit/0.01 Ml Unit SC 08/19/24 16:59 2 unit ACHS KOTA Administration Protocol Insulin Human Lispro 5 unit 07/20/24 17:00 07/21/24 08:09 Insulin Lispro (Admelog) 1 Unit/0.01 Ml Unit SC 08/19/24 16:59 Not Given ACHS KOTA Ipratropium [place] 0.5 mg 07/31/24 12:50 Ipratropium Rt 0.5 Mg/ 2.5 Ml Nebu INH 08/19/24 18:59 Q6HRRT PRN WHEEZING Levalbuterol HCl 0.63 mg 07/31/24 12:49 Levalbuterol Rt 0.63 Mg/3 Ml Nebu INH 08/20/24 09:59 Q6HRRT PRN WHEEZING Levothyroxine Sodium 88 mcg 08/01/24 07:00 Levothyroxine Sodium 88 Mcg Tablet PO 08/31/24 06:59 ACBR KOTA Melatonin 3 mg 07/21/24 00:29 07/27/24 21:19 Melatonin 3 Mg Tablet PO 08/20/24 20:59 3 mg HS PRN Administration SLEEPLESSNESS Midodrine 15 mg 07/29/24 14:00 07/31/24 05:09 Midodrine 5 Mg Tablet PO 08/28/24 13:59 15 mg TID KOTA Administration Pantoprazole Sodium 40 mg 07/24/24 08:55 07/31/24 09:04 Pantoprazole Inj 40 Mg Vial IV 08/23/24 08:54 40 mg QDAY KOTA Administration Promethazine HCl/Dextromethorphan 5 ml 07/24/24 10:29 07/25/24 23:52 Promethazine/Dm Syrup 5 Ml Dose PO 08/23/24 10:28 5 ml Q6HR PRN Administration COUGH OR CONGESTION Protocol Sevelamer Carbonate 800 mg 07/30/24 08:00 07/31/24 12:21 Sevelamer Carbonate 800 Mg Tablet PO 08/29/24 07:59 800 mg TIDWM KOTA Administration Simethicone 80 mg 07/30/24 13:07 Simethicone 80 Mg Chew PO 08/29/24 13:06 QID PRN GAS Plan Patient is a 68-year-old female with a past medical history of hypertension, diabetes mellitus type 2 insulin-dependent, CAD, CHF HFpEF 60-65%, ESRD (MW), Atrial Fibrillation on Eliquis and history of renal cell carcinoma s/p Left nephrectomy (2022) who was admitted on who was admitted for acute chf exacerbation, pneumonia, and Atrial Fibrilation w/ RVR, rate controlled now, and Lower GI bleed. Hypothyroidism, improving Patient presented with a TSH level of 118.25 and a T4 of 0.46 and 1.7 T3. Levothyroxine started 25 mcg p.o. before meals. Medication induced versus euthyroidism versus myxedema coma (less likely). Second TSH 87.56 on 07/21/2024. Continue TSH and Free T4 improvement. Continue to follow up on Free T4. Slight decrease T4 0.67 (07/31/2024). Plan: -Levothyroxine 88 mcg p.o. before meals 08/01/2024 -Levothyroxine 50 mcg po before meals X1 07/31/2024 -Levothyroxine 100 mcg X 1 07/30/2024 -Cortisol 100 mg X 1 07/30/2024 -Free T4 & TSH AM labs #Acute CHF exacerbation #HFpEF 35 to 40% #Acute Hypoxic Respirtory Failure, continued #Elevated troponin Has a past medical history of CHF. No Lasix noted for patient. Preserved ejection fraction of 35 to 40% on 07/20/2024. Pulmonary pressure noted 62 mmHg. Patient patient scheduled for dialysis today, reevaluate tomorrow's fluid status. Patient still produces some urine. Positive Orthopnea. Positive Paroxsymal Orthopnea. Requires several pillows to sleep. Wheelchair bound. Lower Pedal edema noted, improved. Lower extremity wound noted-wound care. BNP 1261. Prominent vascular congestion on cxr. Patient produces minimal urine. Elevated troponin on admission, likely NSTEMI II given demand ischemia as there are no ST elevations. Plan: -Continue digoxin 0.125mcg every other day -Follow up with digoxin levels every 7 days (08/06/2024) -D/C Metoprolol Succinate -No lasix, very urine output -Cardiology Consult, appreciate recommendations. -wean of o2, currently on oxy mask continues to desat #Atrial fibrillation with RVR #Atrial Fibrillation Patient has a past medical history of atrial fibrillation. Home medication of amiodarone 400 twice daily and digoxin 125 mcg daily. Currently holding amiodarone twice daily given elevated TSH as it can cause hyper or hypothyroidism. Pending digoxin levels. Pending final recommendations from cardiology. Second EKG ordered, to confirm A-fib with RVR. RVR likely triggered by pneumonia, CHF exacerbation and lack of dialysis completion. 07/27/2024-patient experienced rapid during dialysis for MAP of 30 with a systolic blood pressure in 40s. Cardiology updated, stopped Metoprolol. START DIGOXIN. EKG on 07/27/2024 noted for Afib w/ rvr Plan -07/29/2024 Digoxin 0.125 every other day. -Replete with caution K, as patient is a ESRD patient, goal 3.5-4 -If patient goes into Afib w/ rvr please give Amiodarone -Continue Metoprolol Succinate 50 mg HS, stopped -Cardiology Consulted, Dr. Ring, appreciate recommendations. #Hypotension, improving #ESRD (Tuesday) Patient has a past medical history of dialysis likely secondary to nephrectomy from renal cell carcinoma (2022). Inpatient dialysis on 07/20/2024, Dr. Ventura consulted, when patient was admitted as she was feeling unwell. Patient will continue to receive dialysis in patient. Patient resumed regular dialysis scheduled with 1 L UF removed. Hypotension likely secondary to dialysis vs hypothyroidism vs metoprolol. Plan Midodrine 15 mg TID and albumin Dialysis as per patient's home schedule Renally dose medication Avoid nephrotoxins Phosphorus improved Follow-up with phosphate consider restarting the Sevelamer, based on nephrology recommendations Consult Nephrology, Appreciate Recommendations, Dr. Ventura #Diabetes mellitus type 2 insulin-dependent #Hypoglycemic episode, resolved. Past medical history of diabetes mellitus with current A1c on admission 6.1% (07/2024). Patient stated she was on 40 units Glargine but that caused a hypoglycemic episode, D/C. Plan Sliding scale ACHS (lispor) -2 units total given on 07/31/2024 follow AM labs #Hyperlipidemia #CAD Home medication atorvastatin. Currently holding Lipid Cholesterol 69 L, LDL 24, HDL 34; unable to calculate ASCVD given low cholesterol Plan Follow AST's ALT's Consider restarting Atorvastatin on discharge. Holding Atorvastatin # Elevated transaminitis, secondary hepatitis A and C+, improving #Lower GI bleed, resolved #Anemia normocytic, stable Plan for colonoscopy for lower GI bleed recorded positive FOBT. Given hepatitis A, likely contributing to lower GI bleed possible soft bowel movements reported by patient in the morning. Malignancy cannot be ruled out versus diverticulitis. Patient reported 2 episodes of diarrhea on 07/31/2024. Plan -Monitor -Colonoscopy as outpatient -GI consult, Dr. 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 #Diarrhea Patient reported 2 episodes of diarrhea this morning, likely secondary to increasing levothyroxine given for TSH/Free T4 improvement. Patient denied melena/hematochezia vs hepatitis A as there is an active infection ,now 1.5 weeks, typically resolves by week 2 vs kieran change secondary to antibiotic use Plan -US appendix not visualized -Consider Probiotics -Continue to monitor #Community-acquired Pneumonia likely GPC, Resolved Patient presented with increased cough for the past 3 weeks that has been productive. Likely send secondary to viral superimposed bacteria given bilateral component. Likely gram-positive cocci suggest strep pneumoniae. Cocci less likely. PE cannot be ruled out as wells criteria 6 points (16% of PE in the ED). Venous U/S of Lower extremity Negative. HI less likely given no st elevation on EKG but troponins are slighlty elevated at 0.12. Following. No chest pain. COVID flu negative. MRSA negative 07/21/2024 Gram Stain: Epithelial Cells, WBC 1. no organisms seen. Sputum Culture Mixed Plan Ceftriaxone 1 g (07/20/2024)--Zosyn 07/23/2024-07/30/2024 for dull coverage of UTI ESBL Azithromycin 500 daily x3 days, completed Consider 2nd Cxr if symptoms worsen with increased work of breathing overnight Chest physio Cough syrup CBC CMP #Urinary tract infection, complicated, resolved Patient presented with a positive UA showing positive esterase, positive WBCs and +1 bacteria. Past medical history of UTIs. Dysuria positive. Negative for suprapubic tenderness. Culture positive for ESBL, patient symptomatic with burning urination Plan -Zosyn 07/23/2024-07/30/2024 Health Maintenance: Disp: Telemetry FEN: Clear Liquid-->Transition patient back to peptic ulcer diet/soft foods and advance as tolerated by patient DVT: resumed Eliquis Code: Full code - The patient's plan was discussed with attending Dr. Ohara and senior residents Dr. Lauren Lugo MD PGY1 Internal Medicine Attending Provider Attestation/Addendum I attest that I was physically present for the evaluation, physical examination, lab and imaging review of the patient with the residents. I discussed the case with the residents and agree with the findings and plans of care as documented above. America Ohara MD
[2024-07-31] MEDS: LEVOTHYROXINE SODIUM 25 MCG TABLET 50 MCG PO (15:13)
--- NOTE | 2024-07-31 17:05 | ESPR_ITS ---
Documentation for date of: 07/31/24 Subjective Subjective Interval history: Ms. Nguyễn is a 68-year-old who is well-known to me with a past medical history significant for hypertension, diabetes mellitus type 2 insulin- dependent, CAD, CHF HFpEF 60-65%, ESRD (MWF), Atrial Fibrillation on Eliquis and history of renal cell carcinoma s/p Left nephrectomy (2022) has been having significant fluid overload and sometimes receiving 4 times weekly dialysis presented to the emergency department with weakness, shortness of breath and high fevers. In the emergency department she was diagnosed with extensive bilateral pneumonia and also severe pulmonary vascular congestion. EKG showed A-fib with RVR. Labs showed WBC 5.2, hemoglobin 12.5, platelets 152. Sodium 132, potassium 3.6, BUN 28, creatinine 4.6, blood sugar 199, calcium 9.6, AST 65, ALT 44, alk phos 201, troponin 0.12, BNP 06/13/1959, albumin 4, TSH 118, Pro-Devon 0.43, urinalysis shows significant amount of blood and 1+ bacteria. Did level 0.4. Hepatitis STUART positive, hep C positive Admitted for pneumonia, acute chf exacerbation, and A-fib RVR, UTI Medication given in the emergency room Lasix 40 mg x 1, nitroglycerin, cefepime, morphine, aspirin 325. Nephrology consultation requested in view of need for dialysis. Patient currently on dialysis 07/22/2024 patient currently seen in telemetry. Still having significant shortness of breath and edema. Patient had a short run of dialysis yesterday. Next dialysis scheduled for tomorrow. Continue with antibiotics. Admitted with pneumonia/CHF exacerbation. 07/23/2024 patient was seen and examined at bedside. Blood pressure still on the soft side 99/65, pulse rate of 91, respiratory rate of 23, O2 saturation 99 on 1 L of oxygen. His hemoglobin is stable at 9.6, WBC 9, sodium show 133, potassium 4.7, serum creatinine 5.3, BUN 36. Urine culture came back positive for ESBL E. coli. Primary team started patient on meropenem. Patient will undergo a session of dialysis today as per his schedule 07/24/2024 Patient was seen and examined at bedside. Vitally patient was stable. However patient reported that she had episodes of rectal bleeding and also she injured her right foot. Primary team was informed about the bleeding that stopped her Eliquis and her aspirin and they put the patient on pantoprazole and consulted GI. Patient today still seems to be mildly overloaded. And her pertinent lab showed Hgb of 9.7 sodium today is 135, potassium 4.4, BUN of 33, creatinine 4.7, glucose 130, with mild elevation of AST and ALT. Patient reported significant cough primary team was informed that we will plan for the patient promethazine. 07/25/2024, patient was seen and examined at bedside. Patient denied any new symptoms however she seems to be overloaded today. Patient is getting GoLytely for preparation for the colonoscopy by Dr. Krishnamurthy. Her vital signs are within normal limits saturating 98% on 1 L of oxygen. Potassium today is 4.3, BUN of 35, creatinine 5.1, phosphorous 5.0 magnesium 2.1 calcium 9.5. Will reevaluate the patient tomorrow as she continued to get the GoLytely and will assess the patient if she needs extra session of dialysis tomorrow in addition to her dialysis today. 07/26/2024, patient was seen and examined at bedside. Patient denied any symptoms except that she was complaining of her GoLytely but she was not able to finish the whole bottle. It was noticed that the patient was taking ice and also multiple cans of 7-Up to help her with the taste of the GoLytely. Also patient was noticed to have increased lower extremity edema. For that reason, we will do extra session of dialysis for the patient to remove fluids only. Potassium 3.8, carbon dioxide 31.6, creatinine 3.8, BUN 21 calcium 9.5, magnesium 1.9, phosphorus 3.9 07/27/2024, patient was seen and examined at bedside. Denied any new symptoms. Patient has not finished her GoLytely and was not cleared by GI specialist for colonoscopy. And evaluation patient seems to be overloaded. Vitally stable however there was some mild variation in her pulse rate with drop of her heart rate to the low 40s. , Potassium 3.6, creatinine 4.4, BUN 20, phosphorus and magnesium within normal limits. Patient is scheduled for dialysis today 07/30/2024, patient was seen and examined at bedside. Yesterday night patient had a rapid if the patient developed A-fib with RVR. Patient was given 5 mg of metoprolol tartrate IV which controlled her heart rate. Blood pressure today is in the soft side 99/65. On Tuesday patient was having dialysis however her blood pressure dropped for that reason dialysis was terminated. Patient will have scheduled dialysis today. 07/31/2024 patient was seen and examined at bedside. Her level of energy has improved significantly since yesterday. However her blood pressure is still in the low 90s over 60s. Patient denied any new symptoms denied any shortness of breath or chest pain. Yesterday the patient underwent dialysis. Today her potassium is 3.1 was given KCl p.o. 40 mill equivalent today. Her serum creatinine 5.2 BUN 23, phosphorus and magnesium within normal limits. Next dialysis will be tomorrow. Exam Vital Signs Temp Pulse Resp BP Pulse Ox O2 Del Method O2 Flow Rate 97.8 F 74 21 H 96/74 91 L Oxy Mask 3 07/31/24 12:00 07/31/24 15:13 07/31/24 12:00 07/31/24 15:13 07/31/24 12:00 07/31/24 12:00 07/31/24 12:00 Narrative Exam GEN: AOx3, level of energy has improved since yesterday, obese, able to speak full sentences HEENT: NC/AC, oral mucosa moist, neck supple CVS: RRR, S1-S2 present, no murmurs appreciated RESP: Mild crackles bilaterally basally, good air entry bilaterally. GI: soft, non distended, non tender, NBS MSK: able to move all 4 limbs, +3 lower extremity edema, right foot skin abrasion minimal newly dressed. 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 Objective Labs 08/01/24 05:07 08/01/24 05:07 Labs: Laboratory Results - last 24 hr 07/31/24 05:39 WBC 4.6 RBC 3.27 L Hgb 10.3 L Hct 32.1 L MCV 98 MCH 31.5 MCHC 32.1 RDW Std Deviation 62.4 H Plt Count 181 Neut % (Auto) 81 H Lymph % (Auto) 13 [place] % (Auto) 5 Eos % (Auto) 1 Baso % (Auto) 0 Neut # (Auto) 3.8 Lymph # (Auto) 0.6 L [place] # (Auto) 0.2 Eos # (Auto) 0.0 Baso # (Auto) 0.0 Immature Gran # (Auto) 0.01 H Absolute Nucleated RBC 0.05 H Immature Gran % 0 Nucleated RBC % 1 H Sodium 137 Potassium 3.1 L Chloride 98 Carbon Dioxide 24.8 Anion Gap 14 BUN 23 Creatinine 5.2 H* D Estim Creat Clear Calc 12.8 L eGFR 9 L* BUN/Creatinine Ratio 4 L Glucose 150 H Calculated Osmolality 280 Calcium 9.9 Corrected Calcium 10.1 Phosphorus 3.8 Magnesium 2.1 Total Bilirubin 0.7 AST 67 H ALT 93 H Alkaline Phosphatase 146 H D Total Protein 6.4 Albumin 3.7 Globulin 2.7 Albumin/Globulin Ratio 1.4 Free T4 0.67 L ABG Interpretation ABG results: 07/28/24 07/29/24 08:37 09:28 ABG pH 7.49 H ABG pCO2 35 ABG pO2 69 L ABG HCO3 27 H ABG O2 Saturation 95 ABG Base Excess 3 VBG pH 7.46 VBG pCO2 28 L VBG pO2 155 H VBG Base Excess -3 Quality Measures Quality Measures VTE prophylaxis Advance care planning discussed with:: patient Assessment & Plan Assessment Current Active Medications: Generic Name Dose Route Start Last Admin Trade Name Freq PRN Reason Stop Dose Admin Acetaminophen 650 mg 07/27/24 16:15 07/30/24 05:53 Acetaminophen 325 Mg Tablet PO 08/26/24 16:12 650 mg Q4HR PRN Administration mild pain 1-3 or Fever >100.4 Al Hydrox/Mg Hydrox/Simethicone 30 ml 07/27/24 18:41 07/30/24 13:52 Mg Hyd/Al Hyd/Alfredo (Maalox Reg) Susp 30 Ml Udc PO 08/26/24 18:40 30 ml QID PRN Administration UPSET STOMACH/INDIGESTION Apixaban 2.5 mg 07/22/24 09:00 07/31/24 09:04 Apixaban 2.5 Mg Tablet PO 08/21/24 08:59 2.5 mg BID KOTA Administration Aspirin 81 mg 07/22/24 09:00 07/31/24 09:04 Aspirin Ec 81 Mg Tabec PO 08/21/24 08:59 81 mg QDAY KOTA Administration Benzonatate 100 mg 07/21/24 11:42 07/26/24 19:45 Benzonatate 100 Mg Capsule PO 08/20/24 11:41 100 mg Q8HR PRN Administration COUGH Protocol Dextrose 25 ml 07/20/24 15:46 Dextrose 50%-Water Inj 50 Ml Syringe IV 08/19/24 15:45 Q15MIN PRN BG 50-70 responsive npo pt Dextrose 50 ml 07/20/24 15:46 07/21/24 07:46 Dextrose 50%-Water Inj 50 Ml Syringe IV 08/19/24 15:45 50 ml Q15MIN PRN Administration BG <50 OR BG <70 & pt unresponsive Digoxin 0.125 mg 07/29/24 08:00 07/31/24 09:05 Digoxin 0.125 Mg Tablet PO 08/28/24 07:59 0.125 mg Q48H KOTA Administration Glucagon 1 mg 07/20/24 15:46 Glucagon Inj 1 Mg Vial IM Q15MIN PRN BG <70, and no IV access Guaifenesin/Dextromethorphan 1 each 07/20/24 16:08 Guaifenesin/Dm Tablet PO 08/19/24 16:07 Q4HR PRN COUGH Protocol Albumin Human 25 gm in 100 mls @ 100 mls/min 07/20/24 17:18 07/30/24 19:20 Albuminar-25 Ivpb IV Infused PRN PRN Infusion DIALYSIS Insulin Human Lispro 0 unit 07/20/24 17:00 07/31/24 12:20 Insulin Lispro (Admelog) 1 Unit/0.01 Ml Unit SC 08/19/24 16:59 2 unit ACHS KOTA Administration Protocol Insulin Human Lispro 5 unit 07/20/24 17:00 07/21/24 08:09 Insulin Lispro (Admelog) 1 Unit/0.01 Ml Unit SC 08/19/24 16:59 Not Given ACHS KOTA Ipratropium [place]erson 0.5 mg 07/31/24 12:50 Ipratropium Rt 0.5 Mg/ 2.5 Ml Nebu INH 08/19/24 18:59 Q6HRRT PRN WHEEZING Levalbuterol HCl 0.63 mg 07/31/24 12:49 Levalbuterol Rt 0.63 Mg/3 Ml Nebu INH 08/20/24 09:59 Q6HRRT PRN WHEEZING Levothyroxine Sodium 88 mcg 08/01/24 07:00 Levothyroxine Sodium 88 Mcg Tablet PO 08/31/24 06:59 ACBR KOTA Melatonin 3 mg 07/21/24 00:29 07/27/24 21:19 Melatonin 3 Mg Tablet PO 08/20/24 20:59 3 mg HS PRN Administration SLEEPLESSNESS Midodrine 15 mg 07/29/24 14:00 07/31/24 15:13 Midodrine 5 Mg Tablet PO 08/28/24 13:59 15 mg TID KOTA Administration Pantoprazole Sodium 40 mg 07/24/24 08:55 07/31/24 09:04 Pantoprazole Inj 40 Mg Vial IV 08/23/24 08:54 40 mg QDAY KOTA Administration Promethazine HCl/Dextromethorphan 5 ml 07/24/24 10:29 07/25/24 23:52 Promethazine/Dm Syrup 5 Ml Dose PO 08/23/24 10:28 5 ml Q6HR PRN Administration COUGH OR CONGESTION Protocol Sevelamer Carbonate 800 mg 07/30/24 08:00 07/31/24 12:21 Sevelamer Carbonate 800 Mg Tablet PO 08/29/24 07:59 800 mg TIDWM KOTA Administration Simethicone 80 mg 07/30/24 13:07 Simethicone 80 Mg Chew PO 08/29/24 13:06 QID PRN GAS Plan Assessment and plan Summary: A 67 y/o female patient with significant medical history for ESRD on HD (MWF), DM2, HTN, CAD, Afib on Eliquis, CHF and left renal neoplasm s/p nephrectomy (on 05/14/23) BIBA to ED for shortness of breath, fever . nephrology was consulted due to patient's ESRD. #ESRD on hemodialysis M/W/F # Left Nephrectomy- Renal neoplasm Today patient was noticed to be overloaded for that reason patient will have extra session of dialysis today. 07/27 in/o 1700 mL over the past 24 hours Plan ? Dialysis will continued as per schedule ? Strict in and out ? Pharmacy to dose medications #GI bleeding would likely depression or colonoscopy # Pneumonia # UTI # Hypothyroidism #DM #Afib #CAD// CHF Plan ? Follow-up with the primary team recommendations Thank you for the consultation, please do not hesitate to ask or reach out if you have any question or concerns - Patient's plan and care discussed with my attending, Dr. Audrey Miles MD Internal Medicine PGY-2 Attending Provider Attestation/Addendum Patient seen and examined with resident physician Dr. Ray. Note reviewed, agree with findings and recommendations. Patient with fluid overload, pneumonia, hypotension and unable to remove fluid during dialysis. Has been requesting all aggressive measures and currently on full CODE STATUS. Next dialysis scheduled for tomorrow if blood pressure stable.
--- NOTE | 2024-07-31 20:27 | ESPR_ITS ---
Documentation for date of: 07/31/24 Subjective Subjective Interval history: Patient evaluated hemoglobin hematocrit 10.3 and 32.1 2 stools today but no blood Exam Vital Signs Temp Pulse Resp BP Pulse Ox O2 Del Method O2 Flow Rate 97.5 F 93 18 99/78 94 L Oxy Mask 3 07/31/24 16:00 07/31/24 16:00 07/31/24 16:00 07/31/24 16:00 07/31/24 16:00 07/31/24 16:00 07/31/24 16:00 Constitutional Comments: Alert oriented Routine Respiratory Exam Comments: Normal to auscultation Routine Abdominal Exam Comments: Soft nontender Objective Labs 07/31/24 05:39 07/31/24 05:39 Labs: Laboratory Results - last 24 hr 07/31/24 05:39 WBC 4.6 RBC 3.27 L Hgb 10.3 L Hct 32.1 L MCV 98 MCH 31.5 MCHC 32.1 RDW Std Deviation 62.4 H Plt Count 181 Neut % (Auto) 81 H Lymph % (Auto) 13 [place] % (Auto) 5 Eos % (Auto) 1 Baso % (Auto) 0 Neut # (Auto) 3.8 Lymph # (Auto) 0.6 L [place] # (Auto) 0.2 Eos # (Auto) 0.0 Baso # (Auto) 0.0 Immature Gran # (Auto) 0.01 H Absolute Nucleated RBC 0.05 H Immature Gran % 0 Nucleated RBC % 1 H Sodium 137 Potassium 3.1 L Chloride 98 Carbon Dioxide 24.8 Anion Gap 14 BUN 23 Creatinine 5.2 H* D Estim Creat Clear Calc 12.8 L eGFR 9 L* BUN/Creatinine Ratio 4 L Glucose 150 H Calculated Osmolality 280 Calcium 9.9 Corrected Calcium 10.1 Phosphorus 3.8 Magnesium 2.1 Total Bilirubin 0.7 AST 67 H ALT 93 H Alkaline Phosphatase 146 H D Total Protein 6.4 Albumin 3.7 Globulin 2.7 Albumin/Globulin Ratio 1.4 Free T4 0.67 L Impressions Impression: Posthemorrhagic anemia stable Continue to monitor CBC ABG Interpretation ABG results: 07/28/24 07/29/24 08:37 09:28 ABG pH 7.49 H ABG pCO2 35 ABG pO2 69 L ABG HCO3 27 H ABG O2 Saturation 95 ABG Base Excess 3 VBG pH 7.46 VBG pCO2 28 L VBG pO2 155 H VBG Base Excess -3 Assessment & Plan A&P Chelo Izaguirre is a 67 y/o female from [facility] with a past medical history of DM type II, HTN, ESRD on HD MWF, CAD, CHF, atrial fibrillation on Eliquis, left renal neoplasm s/p nephrectomy who is admitted for Afib w/RVR. 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 Continue to hold off on the amiodarone. Patient blood pressure was also soft and was hypotensive. Patient was on metoprolol XL 50 mg once daily. Digoxin also was stopped during this admission initially. Patient was being prepped for possible colonoscopy with greatly over the last couple of days but patient has not been able to drink the complete fluids. Given the GoLytely prep which can also cause severe electrolyte abnormalities, stopping of the amiodarone as well as the digoxin and the dialysis which could also cause significant fluid shifts patient probably reverted back into atrial fibrillation with RVR. Stopped metoprolol, started on digoxin renal dosing and continue to hold on amiodarone. Plan: Continue Eliquis 5 mg twice daily if no other procedures planned Telemetry reviewed and patient heart rate is now better controlled between 80- 100 bpm Recommend to continue digoxin 125 mcg every other day and check digoxin level every 7 days. Keep potassium in the normal range between 3.5-5 and avoid hypokalemia and hyperkalemia to avoid any kind of dig toxicity as the patient is also on hemodialysis. Will hold off on the amiodarone given her abnormal thyroid function test with signs and symptoms of myxedema. Hold off on the metoprolol XL as the patient is hypotensive. Patient continues to be hypoxic today and is oxygen via Ventimask at 10 L. Patient apparently was lethargic this morning and primary team did consult ICU as the patient is also hypotensive Patient was given levothyroxine 100 mcg x 1 and also hydrocortisone 100 mg x 1 and started on midodrine 10 mg 3 times daily for now. During my examination patient appears to be awake alert and able to answer questions but still appears to be in respiratory distress. On examination patient still continues to have significant edema and chest x-ray does show worsening bilateral pleural effusions. Patient will need dialysis and will need possible pressure support. All antihypertensives were discontinued. Discussed with the primary team again to speak with endocrinology to increase the dose of levothyroxine at least to 75 mcg once daily and 100 mcg once daily given her overall presentation of severe hypothyroidism which is contributing to her clinical status at the present point of time. Patient did not have any of the session of dialysis as the patient continues to be mildly hypotensive. #History of CAD #History of chronic HFrEF with systolic dysfunction and dilated left ventricle and wall motion abnormalities #Trace pericardial effusion #Elevated troponins, NSTEMI type II, resolved Echo shows dilated left ventricle with mild global hypokinesis and moderate systolic dysfunction 35 to 40% for EF. She also has right ventricle systolic pressure of 62 and severe MAC, pleural effusion present in trace pericardial effusion. Plan: ?Continue with aspirin ?Continue with GDMT therapy as able, on metoprolol 50 XL at this point #History of type 2 diabetes #History of hypertension A1c 6.1 Plan: ? Resume home medicines when able #ESRD, on HD Tuesday #hx of L nephroectomy #Lower extremity edema Likely related due to patient not getting enough dialysis Dr. Fields sees pt, says she goes for diaylsis 4x a week Plan: ? Nephrology on consult, appreciate recs #? GI bleed Hemoglobin around 10, FOBT positive recently Patient is on GoLytely prep, still not finished prep, refusing NG tube at this time Plan: ? 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 Thank you for the consult and allowing me to participate in the care of the patient. Cardiology will continue to follow. Orestes Dudley M.D. Interventional Cardiology Time Spent With Patient Time: Total time spent is greater than 50% in coordination of care (as documented) at patient's floor/unit and/or counseling patient:
[2024-08-01] VITALS (18 sets, daily range): BP systolic 85–148; BP diastolic 49–68; PULSE 71–118; RESP 17–97; TEMP 36.2–36.7; O2SAT 94–100; BMI 32.1
[2024-08-01 06:14] LABS: Basophils % (Auto) 1 % (0-2.5); Eosinophils # (Auto) 0.1 Thou/mm3 (0.0-0.5); Eosinophils % (Auto) 2 % (0-10); Hematocrit 32.7 % (36.0-46.0); Hemoglobin 10.4 g/dL (12.0-16.0); Immature Granulocytes % (Auto) 1 % (0-0); Immature Granulocytes Auto 0.02 Thou/mm3 (0.00-0.00); Lymphocytes # (Auto) 0.5 Thou/mm3 (1.0-4.8); Lymphocytes % (Auto) 12 % (10-50); Mean Corpuscular HGB Conc 31.8 g/dl (31.0-37.0); Mean Corpuscular Hemoglobin 31.6 pg (25.0-35.0); Mean Corpuscular Volume 99 fL (80-100); Monocytes # (Auto) 0.4 Thou/mm3 (0.0-0.8); Monocytes % (Auto) 9 % (0-12); Neutrophils # (Auto) 3.2 Thou/mm3 (1.8-7.7); Neutrophils % (Auto) 76 % (37-80); Nucleated Red Blood Cell # 0.04 Thou/mm3 (0.00-0.00); Nucleated Red Blood Cell % 1 /100 WBC (0); Platelet Count 161 Thou/mm3 (140-440); RDW Standard Deviation 65.1 fL (36.4-46.3); Red Blood Count 3.29 Miln/mm3 (4.00-5.20); White Blood Count 4.2 Thou/mm3 (3.6-11.0)
[2024-08-01] MEDS: MIDODRINE 5 MG TABLET 15 MG PO ×3 (06:17→21:15)
[2024-08-01] MEDS: LEVOTHYROXINE SODIUM 88 MCG TABLET PO (06:18)
[2024-08-01 06:39] LABS: Alanine Aminotransferase 70 U/L (10-49); Albumin, Serum 3.8 gm/dL (3.4-4.8); Albumin/Globulin Ratio 1.4 (1.2-2.2); Alkaline Phosphatase 137 U/L (46-116); Anion Gap 14 (7-16); Aspartate Amino Transferase 38 U/L (0-34); BUN/Creatinine Ratio 5 Ratio (12-20); Bilirubin,Total 0.7 mg/dL (0.3-1.2); Blood Urea Nitrogen 27 mg/dL (9-23); Calcium (Corrected) 10.2 mg/dL (8.5-10.1); Chloride 100 mMol/L (98-107); Creatinine (Component) 5.9 mg/dL (0.6-1.3); Estimated Creatinine Clearance 11.4 mL/min (>60); Free T4 (Free Thyroxine) 0.63 ng/dL (0.89-1.76); Globulin 2.8 gm/dL (2.3-3.5); Glucose 152 mg/dL (74-106); Magnesium 2.2 mg/dL (1.6-2.6); Osmolality,Calculated 283 (275-295); Phosphorous 2.7 mg/dL (2.4-5.1); Potassium 4.1 mMol/L (3.4-5.1); Sodium 138 mMol/L (136-145); Thyroid Stimulating Hormone 29.43 uIU/mL (0.55-4.78); Total Protein 6.6 gm/dL (5.7-8.2); eGFR 7 See Note
[2024-08-01] MEDS: ASPIRIN EC 81 MG TABEC PO (08:09)
[2024-08-01] MEDS: APIXABAN 2.5 MG TABLET PO ×2 (08:09→20:09)
[2024-08-01] MEDS: PANTOPRAZOLE INJ 40 MG VIAL IV (08:09)
[2024-08-01] MEDS: SEVELAMER CARBONATE 800 MG TABLET PO ×2 (08:09→11:43)
--- NOTE | 2024-08-01 09:04 | PC.NURSE ---
BP low ablumin 25 ivp given.
--- NOTE | 2024-08-01 09:18 | PC.NURSE ---
HD stopped per Dr. Ventura as BP top low to continue.
--- NOTE | 2024-08-01 10:23 | PD.RESPRO ---
Documentation for date of: 08/01/24 Subjective Subjective Interval history: Ms. Nguyễn is a 68-year-old who is well-known to me with a past medical history significant for hypertension, diabetes mellitus type 2 insulin-dependent, CAD, CHF HFpEF 60-65%, ESRD (MWF), Atrial Fibrillation on Eliquis and history of renal cell carcinoma s/p Left nephrectomy (2022) has been having significant fluid overload and sometimes receiving 4 times weekly dialysis presented to the emergency department with weakness, shortness of breath and high fevers. In the emergency department she was diagnosed with extensive bilateral pneumonia and also severe pulmonary vascular congestion. EKG showed A-fib with RVR. Labs showed WBC 5.2, hemoglobin 12.5, platelets 152. Sodium 132, potassium 3.6, BUN 28, creatinine 4.6, blood sugar 199, calcium 9.6, AST 65, ALT 44, alk phos 201, troponin 0.12, BNP 06/13/1959, albumin 4, TSH 118, Pro-[place]on 0.43, urinalysis shows significant amount of blood and 1+ bacteria. Did level 0.4. Hepatitis STUART positive, hep C positive Admitted for pneumonia, acute chf exacerbation, and A-fib RVR, UTI Medication given in the emergency room Lasix 40 mg x 1, nitroglycerin, cefepime, morphine, aspirin 325. Nephrology consultation requested in view of need for dialysis. Patient currently on dialysis 07/22/2024 patient currently seen in telemetry. Still having significant shortness of breath and edema. Patient had a short run of dialysis yesterday. Next dialysis scheduled for tomorrow. Continue with antibiotics. Admitted with pneumonia/CHF exacerbation. 07/23/2024 patient was seen and examined at bedside. Blood pressure still on the soft side 99/65, pulse rate of 91, respiratory rate of 23, O2 saturation 99 on 1 L of oxygen. His hemoglobin is stable at 9.6, WBC 9, sodium show 133, potassium 4.7, serum creatinine 5.3, BUN 36. Urine culture came back positive for ESBL E. coli. Primary team started patient on meropenem. Patient will undergo a session of dialysis today as per his schedule 07/24/2024 Patient was seen and examined at bedside. Vitally patient was stable. However patient reported that she had episodes of rectal bleeding and also she injured her right foot. Primary team was informed about the bleeding that stopped her Eliquis and her aspirin and they put the patient on pantoprazole and consulted GI. Patient today still seems to be mildly overloaded. And her pertinent lab showed Hgb of 9.7 sodium today is 135, potassium 4.4, BUN of 33, creatinine 4.7, glucose 130, with mild elevation of AST and ALT. Patient reported significant cough primary team was informed that we will plan for the patient promethazine. 07/25/2024, patient was seen and examined at bedside. Patient denied any new symptoms however she seems to be overloaded today. Patient is getting GoLytely for preparation for the colonoscopy by Dr. Krishnamurthy. Her vital signs are within normal limits saturating 98% on 1 L of oxygen. Potassium today is 4.3, BUN of 35, creatinine 5.1, phosphorous 5.0 magnesium 2.1 calcium 9.5. Will reevaluate the patient tomorrow as she continued to get the GoLytely and will assess the patient if she needs extra session of dialysis tomorrow in addition to her dialysis today. 07/26/2024, patient was seen and examined at bedside. Patient denied any symptoms except that she was complaining of her GoLytely but she was not able to finish the whole bottle. It was noticed that the patient was taking ice and also multiple cans of 7-Up to help her with the taste of the GoLytely. Also patient was noticed to have increased lower extremity edema. For that reason, we will do extra session of dialysis for the patient to remove fluids only. Potassium 3.8, carbon dioxide 31.6, creatinine 3.8, BUN 21 calcium 9.5, magnesium 1.9, phosphorus 3.0 07/31/2024 patient was seen and examined at bedside. Her level of energy has improved significantly since yesterday. However her blood pressure is still in the low 90s over 60s. Patient denied any new symptoms denied any shortness of breath or chest pain. Yesterday the patient underwent dialysis. Today her potassium is 3.1 was given KCl p.o. 40 mill equivalent today. Her serum creatinine 5.2 BUN 23, phosphorus and magnesium within normal limits. Next dialysis will be tomorrow. 08/01/2024, patient was seen and examined at bedside. Her level of energy has improved however her blood pressure still on the soft side it was 92/65. Patient reported that she is still significantly having diarrhea for that reason we will prescribe the patient Ensure with her diet. Patient seems to be edematous however on auscultation her lungs are clear.Her hemoglobin today is 10.4, platelets 161, BUN 27, serum creatinine 5.9, potassium 4.1, glucose 152, calcium is 10.2 most likely due to immobilization, phosphorus 2.7, magnesium 2.1. Patient will undergo dialysis today at rate of 200 mL/ per minute. If her blood pressure right. Exam Vital Signs Temp Pulse Resp BP Pulse Ox O2 Del Method O2 Flow Rate 97.1 F 92 20 98/65 100 Nasal Cannula 3 08/01/24 09:21 08/01/24 09:00 08/01/24 09:21 08/01/24 09:00 08/01/24 09:21 08/01/24 08:00 08/01/24 09:21 Narrative Exam GEN: AOx3, level of energy has improved since yesterday, obese, able to speak full sentences HEENT: NC/AC, oral mucosa moist, neck supple CVS: RRR, S1-S2 present, no murmurs appreciated RESP: Mild crackles bilaterally basally, good air entry bilaterally. GI: soft, non distended, non tender, NBS MSK: able to move all 4 limbs, +3 lower extremity edema, right foot skin abrasion minimal newly dressed. SKIN: warm and dry BUSINESS INTELLIGENCE ENGINEER: CN II-XII and Sensation grossly intact. Objective Labs 08/01/24 05:07 08/01/24 05:07 Labs: Laboratory Results - last 24 hr 08/01/24 05:07 WBC 4.2 RBC 3.29 L Hgb 10.4 L Hct 32.7 L MCV 99 MCH 31.6 MCHC 31.8 RDW Std Deviation 65.1 H Plt Count 161 Neut % (Auto) 76 Lymph % (Auto) 12 [place] % (Auto) 9 Eos % (Auto) 2 Baso % (Auto) 1 Neut # (Auto) 3.2 Lymph # (Auto) 0.5 L [place] # (Auto) 0.4 Eos # (Auto) 0.1 Baso # (Auto) 0.0 Immature Gran # (Auto) 0.02 H Absolute Nucleated RBC 0.04 H Immature Gran % 1 H Nucleated RBC % 1 H Sodium 138 Potassium 4.1 D Chloride 100 Carbon Dioxide 24.0 Anion Gap 14 BUN 27 H Creatinine 5.9 H* D Estim Creat Clear Calc 11.4 L eGFR 7 L* BUN/Creatinine Ratio 5 L Glucose 152 H Calculated Osmolality 283 Calcium 10.0 Corrected Calcium 10.2 H Phosphorus 2.7 Magnesium 2.2 Total Bilirubin 0.7 AST 38 H ALT 70 H Alkaline Phosphatase 137 H Total Protein 6.6 Albumin 3.8 Globulin 2.8 Albumin/Globulin Ratio 1.4 TSH 29.43 H D Free T4 0.63 L ABG Interpretation ABG results: 07/28/24 07/29/24 08:37 09:28 ABG pH 7.49 H ABG pCO2 35 ABG pO2 69 L ABG HCO3 27 H ABG O2 Saturation 95 ABG Base Excess 3 VBG pH 7.46 VBG pCO2 28 L VBG pO2 155 H VBG Base Excess -3 Quality Measures Quality Measures VTE prophylaxis Advance care planning discussed with:: patient Assessment & Plan Assessment Current Active Medications: Generic Name Dose Route Start Last Admin Trade Name Freq PRN Reason Stop Dose Admin Acetaminophen 650 mg 07/27/24 16:15 07/30/24 05:53 Acetaminophen 325 Mg Tablet PO 08/26/24 16:12 650 mg Q4HR PRN Administration mild pain 1-3 or Fever >100.4 Al Hydrox/Mg Hydrox/Simethicone 30 ml 07/27/24 18:41 07/30/24 13:52 Mg Hyd/Al Hyd/Alfredo (Maalox Reg) Susp 30 Ml Udc PO 08/26/24 18:40 30 ml QID PRN Administration UPSET STOMACH/INDIGESTION Apixaban 2.5 mg 07/22/24 09:00 08/01/24 08:09 Apixaban 2.5 Mg Tablet PO 08/21/24 08:59 2.5 mg BID KOTA Administration Aspirin 81 mg 07/22/24 09:00 08/01/24 08:09 Aspirin Ec 81 Mg Tabec PO 08/21/24 08:59 81 mg QDAY KOTA Administration Benzonatate 100 mg 07/21/24 11:42 07/26/24 19:45 Benzonatate 100 Mg Capsule PO 08/20/24 11:41 100 mg Q8HR PRN Administration COUGH Protocol Dextrose 25 ml 07/20/24 15:46 Dextrose 50%-Water Inj 50 Ml Syringe IV 08/19/24 15:45 Q15MIN PRN BG 50-70 responsive npo pt Dextrose 50 ml 07/20/24 15:46 07/21/24 07:46 Dextrose 50%-Water Inj 50 Ml Syringe IV 08/19/24 15:45 50 ml Q15MIN PRN Administration BG <50 OR BG <70 & pt unresponsive Digoxin 0.125 mg 07/29/24 08:00 07/31/24 09:05 Digoxin 0.125 Mg Tablet PO 08/28/24 07:59 0.125 mg Q48H KOTA Administration Glucagon 1 mg 07/20/24 15:46 Glucagon Inj 1 Mg Vial IM Q15MIN PRN BG <70, and no IV access Guaifenesin/Dextromethorphan 1 each 07/20/24 16:08 Guaifenesin/Dm Tablet PO 08/19/24 16:07 Q4HR PRN COUGH Protocol Albumin Human 25 gm in 100 mls @ 100 mls/min 07/20/24 17:18 07/30/24 19:20 Albuminar-25 Ivpb IV Infused PRN PRN Infusion DIALYSIS Insulin Human Lispro 0 unit 07/20/24 17:00 08/01/24 07:17 Insulin Lispro (Admelog) 1 Unit/0.01 Ml Unit SC 08/19/24 16:59 Not Given ACHS KOTA Protocol Insulin Human Lispro 5 unit 07/20/24 17:00 07/21/24 08:09 Insulin Lispro (Admelog) 1 Unit/0.01 Ml Unit SC 08/19/24 16:59 Not Given ACHS KOTA Ipratropium [place] 0.5 mg 07/31/24 12:50 Ipratropium Rt 0.5 Mg/ 2.5 Ml Nebu INH 08/19/24 18:59 Q6HRRT PRN WHEEZING Lactobacillus Rhamnosus 1 cap 08/01/24 09:00 08/01/24 08:27 Lactobacillus Rhamnosus 1 Cap PO 08/31/24 08:59 Not Given BID KOTA Levalbuterol HCl 0.63 mg 07/31/24 12:49 Levalbuterol Rt 0.63 Mg/3 Ml Nebu INH 08/20/24 09:59 Q6HRRT PRN WHEEZING Levothyroxine Sodium 88 mcg 08/01/24 07:00 08/01/24 06:18 Levothyroxine Sodium 88 Mcg Tablet PO 08/31/24 06:59 88 mcg ACBR KOTA Administration Melatonin 3 mg 07/21/24 00:29 07/27/24 21:19 Melatonin 3 Mg Tablet PO 08/20/24 20:59 3 mg HS PRN Administration SLEEPLESSNESS Midodrine 15 mg 07/29/24 14:00 08/01/24 06:17 Midodrine 5 Mg Tablet PO 08/28/24 13:59 15 mg TID KOTA Administration Pantoprazole Sodium 40 mg 07/24/24 08:55 08/01/24 08:09 Pantoprazole Inj 40 Mg Vial IV 08/23/24 08:54 40 mg QDAY KOTA Administration Promethazine HCl/Dextromethorphan 5 ml 07/24/24 10:29 07/25/24 23:52 Promethazine/Dm Syrup 5 Ml Dose PO 08/23/24 10:28 5 ml Q6HR PRN Administration COUGH OR CONGESTION Protocol Sevelamer Carbonate 800 mg 07/30/24 08:00 08/01/24 08:09 Sevelamer Carbonate 800 Mg Tablet PO 08/29/24 07:59 800 mg TIDWM KOTA Administration Simethicone 80 mg 07/30/24 13:07 Simethicone 80 Mg Chew PO 08/29/24 13:06 QID PRN GAS Plan Assessment and plan Summary: A 67 y/o female patient with significant medical history for ESRD on HD (MWF), DM2, HTN, CAD, Afib on Eliquis, CHF and left renal neoplasm s/p nephrectomy (on 05/14/23) BIBA to ED for shortness of breath, fever . nephrology was consulted due to patient's ESRD. #ESRD on hemodialysis M/W/F # Left Nephrectomy- Renal neoplasm Today patient was noticed to be overloaded for that reason patient will have extra session of dialysis today. Plan ? Dialysis will continued as per schedule if the patient does not tolerate dialysis because of hypotension will consider adding fludrocortisone ? Continue midodrine 50 mg p.o. daily ? Albumin as needed for dialysis ? Strict in and out ? Ensure dietary supplements ? Pharmacy to dose medications #GI bleeding would likely depression or colonoscopy # Pneumonia # UTI # Hypothyroidism #DM #Afib #CAD// CHF Plan ? Follow-up with the primary team recommendations Thank you for the consultation, please do not hesitate to ask or reach out if you have any question or concerns - Patient's plan and care discussed with my attending, Dr. Audrey Miles MD Internal Medicine PGY-2 Attending Provider Attestation/Addendum Patient seen and examined with resident physician Dr. Ray. Note reviewed, agree with findings and recommendations. Patient with fluid overload, pneumonia, hypotension and unable to remove fluid during dialysis. Has been requesting all aggressive measures and currently on full CODE STATUS. Patient was started on dialysis although blood pressure was very low. Despite her blood flow 200 mL/min she could not tolerate dialysis. Dialysis terminated after few minutes. She also admits to having loose stools. Spoke to primary team-decided to proceed with gentle fluid bolus. If stable will consider dialysis tomorrow. Prognosis overall still remains guarded. Patient clinically looks stable today. More energetic.
--- NOTE | 2024-08-01 10:51 | ESPR_ITS ---
Documentation for date of: 08/01/24 Subjective Subjective Interval history: 07/30/2024: Pt examined at bedside today. Overnight event pt having rapid, afib rate in 150s was given metoprolol 5 mg IV, and was put on oxymask which brought pt's HR 100s-110s. Pt reports she is doing okay. She feels more weak at this time and is requesting for her to close her door once our examination was finished. She is agreeable to diaylsis today, BUN 31 and Cr 6.4, Phos 5.9, Potassium 3.5 and Mg 2.4. She denies any CP at this time. No other complaints. We will continue to do dialysis today, with goals of 1-2L as pt has been experiencing hypotension 07/31/2024: Patient examined at bedside today. Overnight patient appears to be rate controlled in the 100s. Patient reports she is feeling weak today, and is still feeling shortness of breath. She denies having any chest pain or palpitations. BUN/creatinine of 23 and 5.2, potassium 3.1 (repleted with 40 mEq), magnesium of 2.1 phosphorus of 3.8 (on Sevelamer). White count of 4.6, hemoglobin of 2.3. Patient seems to be in some shortness of breath, and still feeling lethargic. Will reassess respiratory status and try to ambulate patient more. Patient had 1 L removed yesterday during dialysis. Blood pressure still appears to be a bit soft, 93/62. 08/01/2024: Patient examined at dialysis bed today. Overnight patient did not have any events on telemetry, seems to be rate controlled 100s. She says she is feeling weak during dialysis, her blood pressure was soft in the 90s systolic during dialysis. Patient had not had any fluid removed at the time. Patient improved a bit with albumin, however still spoke with nephrology team for them to make further recommendations. Her BUN/creatinine today is 27 and 5.9 respectively, AST 38, mag 2.2 and phosphorus 2.7, white count of 4.2, hemoglobin 10.4, potassium 4.1, repeat TSH 29, free T40.63. Will continue with dig and Eliquis, patient will need to have dig level checked later this week. Exam Vital Signs Temp Pulse Resp BP Pulse Ox O2 Del Method O2 Flow Rate 97.1 F 92 20 98/65 100 Nasal Cannula 3 08/01/24 09:21 08/01/24 09:00 08/01/24 09:21 08/01/24 09:00 08/01/24 09:21 08/01/24 08:00 08/01/24 09:21 Narrative Exam General: AAOx3, a bit mild distress, seems a bit tired and lethargic, in dialysis chair HEENT: Moist mucous membranes, conjunctiva clear, EOMI, PERRLA, Cardiovascular: S1, S2, radial pulses +2 bilat, irregularly irregular Pulmonary: CTAB bilat no cough, no wheezing, wearing oxymask 3 L GI: No tenderness to light or deep palpitation, no guarding, rigidity, rebound tenderness or distension Extremities: +2 pitting edema in lower extremities bilaterally, dorsalis pedis pulses +2 bilaterally Neuro: AAOx3, no focal motor or sensory deficits in the UE or LE bilat Psych: Cooperative Objective Labs 08/01/24 05:07 08/01/24 05:07 Labs: Laboratory Results - last 24 hr 08/01/24 05:07 WBC 4.2 RBC 3.29 L Hgb 10.4 L Hct 32.7 L MCV 99 MCH 31.6 MCHC 31.8 RDW Std Deviation 65.1 H Plt Count 161 Neut % (Auto) 76 Lymph % (Auto) 12 [place] % (Auto) 9 Eos % (Auto) 2 Baso % (Auto) 1 Neut # (Auto) 3.2 Lymph # (Auto) 0.5 L [place] # (Auto) 0.4 Eos # (Auto) 0.1 Baso # (Auto) 0.0 Immature Gran # (Auto) 0.02 H Absolute Nucleated RBC 0.04 H Immature Gran % 1 H Nucleated RBC % 1 H Sodium 138 Potassium 4.1 D Chloride 100 Carbon Dioxide 24.0 Anion Gap 14 BUN 27 H Creatinine 5.9 H* D Estim Creat Clear Calc 11.4 L eGFR 7 L* BUN/Creatinine Ratio 5 L Glucose 152 H Calculated Osmolality 283 Calcium 10.0 Corrected Calcium 10.2 H Phosphorus 2.7 Magnesium 2.2 Total Bilirubin 0.7 AST 38 H ALT 70 H Alkaline Phosphatase 137 H Total Protein 6.6 Albumin 3.8 Globulin 2.8 Albumin/Globulin Ratio 1.4 TSH 29.43 H D Free T4 0.63 L ABG Interpretation ABG results: 07/28/24 07/29/24 08:37 09:28 ABG pH 7.49 H ABG pCO2 35 ABG pO2 69 L ABG HCO3 27 H ABG O2 Saturation 95 ABG Base Excess 3 VBG pH 7.46 VBG pCO2 28 L VBG pO2 155 H VBG Base Excess -3 Quality Measures Quality Measures VTE prophylaxis Advance care planning discussed with:: patient Assessment & Plan Assessment Current Active Medications: Generic Name Dose Route Start Last Admin Trade Name Freq PRN Reason Stop Dose Admin Acetaminophen 650 mg 07/27/24 16:15 07/30/24 05:53 Acetaminophen 325 Mg Tablet PO 08/26/24 16:12 650 mg Q4HR PRN Administration mild pain 1-3 or Fever >100.4 Al Hydrox/Mg Hydrox/Simethicone 30 ml 07/27/24 18:41 07/30/24 13:52 Mg Hyd/Al Hyd/Alfredo (Maalox Reg) Susp 30 Ml Udc PO 08/26/24 18:40 30 ml QID PRN Administration UPSET STOMACH/INDIGESTION Apixaban 2.5 mg 07/22/24 09:00 08/01/24 08:09 Apixaban 2.5 Mg Tablet PO 08/21/24 08:59 2.5 mg BID KOTA Administration Aspirin 81 mg 07/22/24 09:00 08/01/24 08:09 Aspirin Ec 81 Mg Tabec PO 08/21/24 08:59 81 mg QDAY KOTA Administration Benzonatate 100 mg 07/21/24 11:42 07/26/24 19:45 Benzonatate 100 Mg Capsule PO 08/20/24 11:41 100 mg Q8HR PRN Administration COUGH Protocol Dextrose 25 ml 07/20/24 15:46 Dextrose 50%-Water Inj 50 Ml Syringe IV 08/19/24 15:45 Q15MIN PRN BG 50-70 responsive npo pt Dextrose 50 ml 07/20/24 15:46 07/21/24 07:46 Dextrose 50%-Water Inj 50 Ml Syringe IV 08/19/24 15:45 50 ml Q15MIN PRN Administration BG <50 OR BG <70 & pt unresponsive Digoxin 0.125 mg 07/29/24 08:00 07/31/24 09:05 Digoxin 0.125 Mg Tablet PO 08/28/24 07:59 0.125 mg Q48H KOTA Administration Glucagon 1 mg 07/20/24 15:46 Glucagon Inj 1 Mg Vial IM Q15MIN PRN BG <70, and no IV access Guaifenesin/Dextromethorphan 1 each 07/20/24 16:08 Guaifenesin/Dm Tablet PO 08/19/24 16:07 Q4HR PRN COUGH Protocol Albumin Human 25 gm in 100 mls @ 100 mls/min 07/20/24 17:18 07/30/24 19:20 Albuminar-25 Ivpb IV Infused PRN PRN Infusion DIALYSIS Insulin Human Lispro 0 unit 07/20/24 17:00 08/01/24 07:17 Insulin Lispro (Admelog) 1 Unit/0.01 Ml Unit SC 08/19/24 16:59 Not Given ACHS KOTA Protocol Insulin Human Lispro 5 unit 07/20/24 17:00 07/21/24 08:09 Insulin Lispro (Admelog) 1 Unit/0.01 Ml Unit SC 08/19/24 16:59 Not Given ACHS KOTA Ipratropium [place] 0.5 mg 07/31/24 12:50 Ipratropium Rt 0.5 Mg/ 2.5 Ml Nebu INH 08/19/24 18:59 Q6HRRT PRN WHEEZING Lactobacillus Rhamnosus 1 cap 08/01/24 09:00 08/01/24 08:27 Lactobacillus Rhamnosus 1 Cap PO 08/31/24 08:59 Not Given BID KOTA Levalbuterol HCl 0.63 mg 07/31/24 12:49 Levalbuterol Rt 0.63 Mg/3 Ml Nebu INH 08/20/24 09:59 Q6HRRT PRN WHEEZING Levothyroxine Sodium 88 mcg 08/01/24 07:00 08/01/24 06:18 Levothyroxine Sodium 88 Mcg Tablet PO 08/31/24 06:59 88 mcg ACBR KOTA Administration Melatonin 3 mg 07/21/24 00:29 07/27/24 21:19 Melatonin 3 Mg Tablet PO 08/20/24 20:59 3 mg HS PRN Administration SLEEPLESSNESS Midodrine 15 mg 07/29/24 14:00 08/01/24 06:17 Midodrine 5 Mg Tablet PO 08/28/24 13:59 15 mg TID KOTA Administration Pantoprazole Sodium 40 mg 07/24/24 08:55 08/01/24 08:09 Pantoprazole Inj 40 Mg Vial IV 08/23/24 08:54 40 mg QDAY KOTA Administration Promethazine HCl/Dextromethorphan 5 ml 07/24/24 10:29 07/25/24 23:52 Promethazine/Dm Syrup 5 Ml Dose PO 08/23/24 10:28 5 ml Q6HR PRN Administration COUGH OR CONGESTION Protocol Sevelamer Carbonate 800 mg 07/30/24 08:00 08/01/24 08:09 Sevelamer Carbonate 800 Mg Tablet PO 08/29/24 07:59 800 mg TIDWM KOTA Administration Simethicone 80 mg 07/30/24 13:07 Simethicone 80 Mg Chew PO 08/29/24 13:06 QID PRN GAS Plan Assessment Zina is a 67 y/o female from senior living with a past medical history of DM type II, HTN, ESRD on HD MWF, CAD, CHF, atrial fibrillation on Eliquis, left renal neoplasm s/p nephrectomy who is admitted for Afib w/RVR. #A-fib with RVR #History of cardiac arrest #Hypotension #Asymptomatic bradycardia, resolved CHADVASC score: 5 points, 7.2% stroke risk per year HAS-BLED score: 4 points Pt is rate controlled at this time and on Eliquis, rate 90s-100s still in afib Concern for thyroid issues due to amio technician terminal and repeater use, will continue with beta patti and titrate doses as needed Patient can be given midodrine 2.5 to 5 mg 15 to 30 minutes prior dialysis sessions if she goes hypotensive Patient had previous cardiac arrest in 2019 upon chart records, however not much information to be extrapolated from chart review Amiodarone was discontinued during this admission in the setting of abnormal thyroid function test with elevated TSH of 117. Continue to hold off on the amiodarone. Patient blood pressure was also soft and was hypotensive. Patient was on metoprolol XL 50 mg once daily. Digoxin also was stopped during this admission initially. Patient should get digoxin level checked for Tuesday (for 1 week check) Plan: Continue Eliquis 5 mg twice daily Continue digoxin 125 mcg every other day and check digoxin level every 7 days. Keep potassium in the normal range between 3.5-5 and avoid hypokalemia and hyperkalemia to avoid any kind of dig toxicity as the patient is also on hemodialysis. Pt can be give IV amio if pt's patient goes into Afib with RVR We will hold off on metoprolol because of BP #History of CAD #History of chronic HFrEF with systolic dysfunction and dilated left ventricle and wall motion abnormalities #Trace pericardial effusion #Elevated troponins, NSTEMI type II, resolved Echo shows dilated left ventricle with mild global hypokinesis and moderate systolic dysfunction 35 to 40% for EF. She also has right ventricle systolic pressure of 62 and severe MAC, pleural effusion present in trace pericardial effusion. Blood pressure is still soft today Plan: ?Continue with aspirin ?Continue with GDMT therapy as able #Acute acute hypoxic respiratory failure secondary to #Bilateral pleural effusions Patient requiring more oxygen at this time, does not use home oxygen Patient may benefit from therapeutic thoracentesis, however patient may not tolerate procedure Plan: ? Consider thoracentesis #History of type 2 diabetes #History of hypertension A1c 6.1 Plan: ? Resume home medicines when able, handled by primary #ESRD, on HD Tuesday #hx of L nephroectomy #Lower extremity edema Likely related due to patient not getting enough dialysis Dr. Fields sees pt, says she goes for diaylsis 4x a week Plan: ? Nephrology on consult, appreciate recs #? GI bleed Hemoglobin ~10, FOBT positive recently Plan: ?Outpatient colonoscopy #Hypothyroidism TSH ~29, free T4 0.63 No hx of hypothyroidism in the past Pt's BP could be low because of this as well Hypothyroidism could be from longterm Amio use, Will not resume Curbsided Endo and ICU with above recommendations Plan: Primary team to increase Synthroid to 100 mcg Patient seen and care discussed with my attending physician, Dr. Octavia Mcmahon, PGY-1 Attending Provider Attestation/Addendum I have personally seen and examined the patient separately on the above date of service and discussed the plan of care with the resident. I reviewed the resident Dr. Steiner consultation progress note and agree with the resident findings and plan in the note above and have also edited the documentation to reflect my findings and plan. Orestes Dudley M.D. Interventional Cardiology
[2024-08-01] MEDS: LACTOBACILLUS RHAMNOSUS 1 CAP PO ×2 (11:43→20:07)
[2024-08-01] MEDS: LEVOTHYROXINE SODIUM 25 MCG TABLET 12.5 MCG PO (11:43)
[2024-08-01] MEDS: INSULIN LISPRO (AdmeLOG) 1 UNIT/0.01 ML UNIT SC (11:44)
--- NOTE | 2024-08-01 14:49 | ESPR_ITS ---
<Statement entered by Brandon Montero MD - 08/01/24 14:55> I saw and examined the patient, and I agree with current management stated by Dr Brittney MD,PGY1. Plan of care was discussed with the attending physician and resident physician. Disclaimer: Despite multiple revisions, due to the dictation software being used, the document bellow may not be free of grammatical errors including phonetic/typographic errors. However, this does not deter from our commitment to providing health care in the patient's best interest in mind. Dr. Winston MD, PGY 2 Documentation for date of: 08/01/24 Subjective Subjective Interval history: Overnight patinet reported several episodes of diarrhea. Patient denied blood in stool. Patinet stated blood in stool. Patient was unable to complete scheduled dialysis secondary to soft blood pressure. Hemoglobin and hematocrit have remained stable. Increase in Cr from 5.2 to 5.9 this morning. K 4.1 and mag 2.2. Improved AST and ALT. Dialysis was incomplete only -500 ml net removed. Exam Vital Signs Temp Pulse Resp BP Pulse Ox O2 Del Method O2 Flow Rate 97.6 F 102 H 27 H 106/59 L 94 L Oxy Mask 4 08/01/24 11:47 08/01/24 12:00 08/01/24 11:47 08/01/24 11:47 08/01/24 11:47 08/01/24 11:47 08/01/24 11:47 Narrative Exam General Appearance: Alert & Oriented X3, well-nourished female who is lying in bed in no acute distress but drowsy but responsive to verbal command. HEENT: Skull symmetrical and atraumatic. Conjunctivae pin and moist. Pupils equal, round, reactive to light and accommodation (PERRL). External ear without lesion or discharge. Straight, nares patient, mucosa pink, no discharge. No thyroid nodule appreciated. No cervical lymphadenopathy. Cardio: Normal Rate and Rhythm with S1 and S2 heart sounds. No murmurs or extra heart sounds auscultated. No bruits on carotid auscultation. Edema +3 Lungs: Symmetric with good expansion. Chest and back non-tender. Breath sounds vesicular with crackles Abdomen: Mild tenderness, Non-distended, Normal Reactive Bowel Sounds Neuro: Alert, cooperative, oriented to person, place, and time. Speech clear. CN grossly intact. Upper motor strength 5/5 and Lower motor strength 5/5. Sensation intact. Objective Labs 08/02/24 05:01 08/02/24 05:01 Labs: Laboratory Results - last 24 hr 08/01/24 05:07 WBC 4.2 RBC 3.29 L Hgb 10.4 L Hct 32.7 L MCV 99 MCH 31.6 MCHC 31.8 RDW Std Deviation 65.1 H Plt Count 161 Neut % (Auto) 76 Lymph % (Auto) 12 [place] % (Auto) 9 Eos % (Auto) 2 Baso % (Auto) 1 Neut # (Auto) 3.2 Lymph # (Auto) 0.5 L [place] # (Auto) 0.4 Eos # (Auto) 0.1 Baso # (Auto) 0.0 Immature Gran # (Auto) 0.02 H Absolute Nucleated RBC 0.04 H Immature Gran % 1 H Nucleated RBC % 1 H Sodium 138 Potassium 4.1 D Chloride 100 Carbon Dioxide 24.0 Anion Gap 14 BUN 27 H Creatinine 5.9 H* D Estim Creat Clear Calc 11.4 L eGFR 7 L* BUN/Creatinine Ratio 5 L Glucose 152 H Calculated Osmolality 283 Calcium 10.0 Corrected Calcium 10.2 H Phosphorus 2.7 Magnesium 2.2 Total Bilirubin 0.7 AST 38 H ALT 70 H Alkaline Phosphatase 137 H Total Protein 6.6 Albumin 3.8 Globulin 2.8 Albumin/Globulin Ratio 1.4 TSH 29.43 H D Free T4 0.63 L ABG Interpretation ABG results: 07/28/24 07/29/24 08:37 09:28 ABG pH 7.49 H ABG pCO2 35 ABG pO2 69 L ABG HCO3 27 H ABG O2 Saturation 95 ABG Base Excess 3 VBG pH 7.46 VBG pCO2 28 L VBG pO2 155 H VBG Base Excess -3 Quality Measures Quality Measures VTE prophylaxis Advance care planning discussed with:: other Assessment & Plan Assessment Current Active Medications: Generic Name Dose Route Start Last Admin Trade Name Freq PRN Reason Stop Dose Admin Acetaminophen 650 mg 07/27/24 16:15 07/30/24 05:53 Acetaminophen 325 Mg Tablet PO 08/26/24 16:12 650 mg Q4HR PRN Administration mild pain 1-3 or Fever >100.4 Al Hydrox/Mg Hydrox/Simethicone 30 ml 07/27/24 18:41 07/30/24 13:52 Mg Hyd/Al Hyd/Alfredo (Maalox Reg) Susp 30 Ml Udc PO 08/26/24 18:40 30 ml QID PRN Administration UPSET STOMACH/INDIGESTION Apixaban 2.5 mg 07/22/24 09:00 08/01/24 08:09 Apixaban 2.5 Mg Tablet PO 08/21/24 08:59 2.5 mg BID KOTA Administration Aspirin 81 mg 07/22/24 09:00 08/01/24 08:09 Aspirin Ec 81 Mg Tabec PO 08/21/24 08:59 81 mg QDAY KOTA Administration Benzonatate 100 mg 07/21/24 11:42 07/26/24 19:45 Benzonatate 100 Mg Capsule PO 08/20/24 11:41 100 mg Q8HR PRN Administration COUGH Protocol Dextrose 25 ml 07/20/24 15:46 Dextrose 50%-Water Inj 50 Ml Syringe IV 08/19/24 15:45 Q15MIN PRN BG 50-70 responsive npo pt Dextrose 50 ml 07/20/24 15:46 07/21/24 07:46 Dextrose 50%-Water Inj 50 Ml Syringe IV 08/19/24 15:45 50 ml Q15MIN PRN Administration BG <50 OR BG <70 & pt unresponsive Digoxin 0.125 mg 07/29/24 08:00 07/31/24 09:05 Digoxin 0.125 Mg Tablet PO 08/28/24 07:59 0.125 mg Q48H KOTA Administration Glucagon 1 mg 07/20/24 15:46 Glucagon Inj 1 Mg Vial IM Q15MIN PRN BG <70, and no IV access Guaifenesin/Dextromethorphan 1 each 07/20/24 16:08 Guaifenesin/Dm Tablet PO 08/19/24 16:07 Q4HR PRN COUGH Protocol Albumin Human 25 gm in 100 mls @ 100 mls/min 07/20/24 17:18 07/30/24 19:20 Albuminar-25 Ivpb IV Infused PRN PRN Infusion DIALYSIS Insulin Human Lispro 0 unit 07/20/24 17:00 08/01/24 11:44 Insulin Lispro (Admelog) 1 Unit/0.01 Ml Unit SC 08/19/24 16:59 3 unit ACHS KOTA Administration Protocol Insulin Human Lispro 5 unit 07/20/24 17:00 07/21/24 08:09 Insulin Lispro (Admelog) 1 Unit/0.01 Ml Unit SC 08/19/24 16:59 Not Given ACHS KOTA Ipratropium [place] 0.5 mg 07/31/24 12:50 Ipratropium Rt 0.5 Mg/ 2.5 Ml Nebu INH 08/19/24 18:59 Q6HRRT PRN WHEEZING Lactobacillus Rhamnosus 1 cap 08/01/24 09:00 08/01/24 11:43 Lactobacillus Rhamnosus 1 Cap PO 08/31/24 08:59 1 cap BID KOTA Administration Levalbuterol HCl 0.63 mg 07/31/24 12:49 Levalbuterol Rt 0.63 Mg/3 Ml Nebu INH 08/20/24 09:59 Q6HRRT PRN WHEEZING Levothyroxine Sodium 100 mcg 08/02/24 06:00 Levothyroxine Sodium 100 Mcg Tablet PO 09/01/24 05:59 ACBR KOTA Melatonin 3 mg 07/21/24 00:29 07/27/24 21:19 Melatonin 3 Mg Tablet PO 08/20/24 20:59 3 mg HS PRN Administration SLEEPLESSNESS Midodrine 15 mg 07/29/24 14:00 08/01/24 06:17 Midodrine 5 Mg Tablet PO 08/28/24 13:59 15 mg TID KOTA Administration Pantoprazole Sodium 40 mg 07/24/24 08:55 08/01/24 08:09 Pantoprazole Inj 40 Mg Vial IV 08/23/24 08:54 40 mg QDAY KOTA Administration Promethazine HCl/Dextromethorphan 5 ml 07/24/24 10:29 07/25/24 23:52 Promethazine/Dm Syrup 5 Ml Dose PO 08/23/24 10:28 5 ml Q6HR PRN Administration COUGH OR CONGESTION Protocol Sevelamer Carbonate 800 mg 07/30/24 08:00 08/01/24 11:43 Sevelamer Carbonate 800 Mg Tablet PO 08/29/24 07:59 800 mg TIDWM KOTA Administration Simethicone 80 mg 07/30/24 13:07 Simethicone 80 Mg Chew PO 08/29/24 13:06 QID PRN GAS Plan Patient is a 68-year-old female with a past medical history of hypertension, diabetes mellitus type 2 insulin-dependent, CAD, CHF HFpEF 60-65%, ESRD (MWF), Atrial Fibrillation on Eliquis and history of renal cell carcinoma s/p Left nephrectomy (2022) who was admitted on who was admitted for acute chf exacerbation, pneumonia, and Atrial Fibrilation w/ RVR, rate controlled now, and Lower GI bleed. #Hypotension #ESRD (Tuesday) Patient has a past medical history of dialysis likely secondary to nephrectomy from renal cell carcinoma (2022). Inpatient dialysis started on 07/20/2024, Dr. Ventura consulted, when patient was admitted as she was feeling unwell. Pateint unable to complete dialysis session today, hypotensive. Patient only complete 17 minutes with a net removal of -500 ml. Persistent hypotension likely a combination of diarrhea, hypothyrodism and ESRD on dialyis. Continue to monitor MAP. Plan 250 ml order not given, improved MAP after midodrine. 08/01/2024 Midodrine 15 mg TID and albumin Dialysis as per patient's home schedule Renally dose medication Avoid nephrotoxins Phosphorus AM labs Follow-up with phosphate consider restarting the Sevelamer, based on nephrology recommendations Consult Nephrology, Appreciate Recommendations, Dr. Ventura #Diarrhea Patient has multiple risk factors for persistent diarrhea. Active Hepatitis A diagnosis and still under two week jagdish has not been reached. Starting levothyroxine and recently increased vs Patient was recently on antibiotics and C. diff can not be ruled out. Plan -probiotics - Stool for WBCs -Clostridium difficle pcr stat #Hypothyroidism, improving Patient presented with a TSH level of 118.25 and a T4 of 0.46 and 1.7 T3. Levothyroxine started 25 mcg p.o. before meals. Medication induced versus euthyroidism versus myxedema coma (less likely). Second TSH 87.56 on 07/21/2024. Continue to follow TSH and Free T4. Slight decrease T4 0.63 (08/01/2024). Hypothyroidism likely secondary to medication induced given Amio and digoxin vs autoimmune vs less likely secondary to autoimmune. Plan: -Levothyroxine 88 mcg p.o. before meals -Levothyroxine 50 mcg po before meals X1 07/31/2024 -Levothyroxine 100 mcg X 1 07/30/2024 -Cortisol 100 mg X 1 07/30/2024 -Free T4 & TSH AM labs #Acute CHF exacerbation #HFpEF 35 to 40% #Acute Hypoxic Respirtory Failure, continued #Elevated troponin Has a past medical history of CHF. No Lasix noted for patient. Preserved ejection fraction of 35 to 40% on 07/20/2024. Pulmonary pressure noted 62 mmHg. Patient patient scheduled for dialysis today, reevaluate tomorrow's fluid status. Patient still produces some urine. Positive Orthopnea. Positive Paroxsymal Orthopnea. Requires several pillows to sleep. Wheelchair bound. Lower Pedal edema noted, improved. Lower extremity wound noted-wound care. BNP 1261. Prominent vascular congestion on cxr. Patient produces minimal urine. Elevated troponin on admission, likely NSTEMI II given demand ischemia as there are no ST elevations. Plan: -Continue digoxin 0.125mcg every other day -Follow up with digoxin levels every 7 days (08/06/2024) -D/C Metoprolol Succinate -No lasix, very urine output -Cardiology Consult, appreciate recommendations. -wean of o2, currently on oxy mask continues to desat #Atrial Fibrillation #Atrial fibrillation with RVR, stable Patient has a past medical history of atrial fibrillation. Home medication of amiodarone 400 twice daily and digoxin 125 mcg daily. Currently holding amiodarone twice daily given elevated TSH as it can cause hyper or hypothyroidism. Pending digoxin levels. Pending final recommendations from cardiology. Second EKG ordered, to confirm A-fib with RVR. RVR likely triggered by pneumonia, CHF exacerbation and lack of dialysis completion. 07/27/2024-patient experienced rapid during dialysis for MAP of 30 with a systolic blood pressure in 40s. Cardiology updated, stopped Metoprolol. START DIGOXIN. EKG on 07/27/2024 noted for Afib w/ rvr Plan -07/29/2024 Digoxin 0.125 every other day. -Follow up with digoxin levels every 7 days (08/06/2024) -Replete with caution K, as patient is a ESRD patient, goal 3.5-4 -If patient goes into Afib w/ rvr please give Amiodarone -Continue Metoprolol Succinate 50 mg HS, stopped -Cardiology Consulted, Dr. Ring, appreciate recommendations. #Diabetes mellitus type 2 insulin-dependent #Hypoglycemic episode, resolved. Past medical history of diabetes mellitus with current A1c on admission 6.1% (07/2024). Patient stated she was on 40 units Glargine but that caused a hypoglycemic episode, D/C. Plan Sliding scale ACHS (lispor) -2 units total given on 07/31/2024 follow AM labs #Hyperlipidemia #CAD Home medication atorvastatin. Currently holding Lipid Cholesterol 69 L, LDL 24, HDL 34; unable to calculate ASCVD given low cholesterol Plan Follow AST's ALT's Consider restarting Atorvastatin on discharge. Holding Atorvastatin # Elevated transaminitis, secondary hepatitis A and C+, improving #Lower GI bleed, resolved #Anemia normocytic, stable Plan for colonoscopy for lower GI bleed recorded positive FOBT. Given hepatitis A, likely contributing to lower GI bleed possible soft bowel movements reported by patient in the morning. Malignancy cannot be ruled out versus diverticulitis. Patient reported 2 episodes of diarrhea on 07/31/2024. Plan -Monitor -Colonoscopy as outpatient -GI consult, Dr. Krishnamurthy appreciate recommendations -Update SNF, hospital social worker. #Community-acquired Pneumonia likely GPC, Resolved #Urinary tract infection, complicated, resolved Health Maintenance: Disp: Telemetry FEN: Clear Liquid-->Transition patient back to peptic ulcer diet/soft foods and advance as tolerated by patient DVT: resumed Eliquis Code: Full code - The patient's plan was discussed with attending Dr. Campos and senior residents Winston Lugo MD PGY1 Internal Medicine Attending Provider Attestation/Addendum I have examined the patient, reviewed labs and imaging findings, discussed the case with the resident(s), and reviewed entered orders. I agree with the plan of care as outlined in this note, with these additional summaries/recommendations: Patient and seen at bedside. I had a long discussion with them about patient's medical conditions and the treatments we are providing. I discussed that I am very concerned that she is not fully tolerating dialysis at this time secondary to hypotension despite being on midodrine. Patient is endorsing diarrhea so we will obtain stool studies. Continue phosphate binders. Continue supportive treatment for hepatitis A. Free T4 actually trended down despite increasing levothyroxine. We will increase levothyroxine again today to 100 mcg p.o. daily. Continue treatment for atrial fibrillation with Eliquis and digoxin every other day. Pulse relatively controlled but is labile at times into the 110s. Continue basal and bolus insulin for diabetes mellitus type 2. Repeat chemistry and hematology panel in AM. Dr. Campos
[2024-08-01] MEDS: MELATONIN 3 MG TABLET PO ×2 (20:06→21:19)
[2024-08-01] MEDS: ACETAMINOPHEN 325 MG TABLET 650 MG PO (20:06)
--- NOTE | 2024-08-01 20:20 | PD.IMPROG ---
Documentation for date of: 08/01/24 Subjective Subjective Interval history: Patient evaluated Hemoglobin 10.4 stable Exam Vital Signs Temp Pulse Resp BP Pulse Ox O2 Del Method O2 Flow Rate 97.4 F 90 18 103/60 99 Oxy Mask 3 08/01/24 16:00 08/01/24 16:00 08/01/24 16:00 08/01/24 17:03 08/01/24 16:00 08/01/24 16:00 08/01/24 16:00 Objective Labs 08/01/24 05:07 08/01/24 05:07 Labs: Laboratory Results - last 24 hr 08/01/24 05:07 WBC 4.2 RBC 3.29 L Hgb 10.4 L Hct 32.7 L MCV 99 MCH 31.6 MCHC 31.8 RDW Std Deviation 65.1 H Plt Count 161 Neut % (Auto) 76 Lymph % (Auto) 12 [place] % (Auto) 9 Eos % (Auto) 2 Baso % (Auto) 1 Neut # (Auto) 3.2 Lymph # (Auto) 0.5 L [place] # (Auto) 0.4 Eos # (Auto) 0.1 Baso # (Auto) 0.0 Immature Gran # (Auto) 0.02 H Absolute Nucleated RBC 0.04 H Immature Gran % 1 H Nucleated RBC % 1 H Sodium 138 Potassium 4.1 D Chloride 100 Carbon Dioxide 24.0 Anion Gap 14 BUN 27 H Creatinine 5.9 H* D Estim Creat Clear Calc 11.4 L eGFR 7 L* BUN/Creatinine Ratio 5 L Glucose 152 H Calculated Osmolality 283 Calcium 10.0 Corrected Calcium 10.2 H Phosphorus 2.7 Magnesium 2.2 Total Bilirubin 0.7 AST 38 H ALT 70 H Alkaline Phosphatase 137 H Total Protein 6.6 Albumin 3.8 Globulin 2.8 Albumin/Globulin Ratio 1.4 TSH 29.43 H D Free T4 0.63 L Impressions Impression: # Acute posthemorrhagic anemia hemoglobin hematocrit stable Continue to monitor CBC ABG Interpretation ABG results: 07/28/24 07/29/24 08:37 09:28 ABG pH 7.49 H ABG pCO2 35 ABG pO2 69 L ABG HCO3 27 H ABG O2 Saturation 95 ABG Base Excess 3 VBG pH 7.46 VBG pCO2 28 L VBG pO2 155 H VBG Base Excess -3 Assessment & Plan A&P Chelo Izaguirre is a 67 y/o female from [place] with a past medical history of DM type II, HTN, ESRD on HD MWF, CAD, CHF, atrial fibrillation on Eliquis, left renal neoplasm s/p nephrectomy who is admitted for Afib w/RVR. 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 Continue to hold off on the amiodarone. Patient blood pressure was also soft and was hypotensive. Patient was on metoprolol XL 50 mg once daily. Digoxin also was stopped during this admission initially. Patient was being prepped for possible colonoscopy with greatly over the last couple of days but patient has not been able to drink the complete fluids. Given the GoLytely prep which can also cause severe electrolyte abnormalities, stopping of the amiodarone as well as the digoxin and the dialysis which could also cause significant fluid shifts patient probably reverted back into atrial fibrillation with RVR. Stopped metoprolol, started on digoxin renal dosing and continue to hold on amiodarone. Plan: Continue Eliquis 5 mg twice daily if no other procedures planned Telemetry reviewed and patient heart rate is now better controlled between 80-100 bpm Recommend to continue digoxin 125 mcg every other day and check digoxin level every 7 days. Keep potassium in the normal range between 3.5-5 and avoid hypokalemia and hyperkalemia to avoid any kind of dig toxicity as the patient is also on hemodialysis. Will hold off on the amiodarone given her abnormal thyroid function test with signs and symptoms of myxedema. Hold off on the metoprolol XL as the patient is hypotensive. Patient continues to be hypoxic today and is oxygen via Ventimask at 10 L. Patient apparently was lethargic this morning and primary team did consult ICU as the patient is also hypotensive Patient was given levothyroxine 100 mcg x 1 and also hydrocortisone 100 mg x 1 and started on midodrine 10 mg 3 times daily for now. During my examination patient appears to be awake alert and able to answer questions but still appears to be in respiratory distress. On examination patient still continues to have significant edema and chest x-ray does show worsening bilateral pleural effusions. Patient will need dialysis and will need possible pressure support. All antihypertensives were discontinued. Discussed with the primary team again to speak with endocrinology to increase the dose of levothyroxine at least to 75 mcg once daily and 100 mcg once daily given her overall presentation of severe hypothyroidism which is contributing to her clinical status at the present point of time. Patient did not have any of the session of dialysis as the patient continues to be mildly hypotensive. #History of CAD #History of chronic HFrEF with systolic dysfunction and dilated left ventricle and wall motion abnormalities #Trace pericardial effusion #Elevated troponins, NSTEMI type II, resolved Echo shows dilated left ventricle with mild global hypokinesis and moderate systolic dysfunction 35 to 40% for EF. She also has right ventricle systolic pressure of 62 and severe MAC, pleural effusion present in trace pericardial effusion. Plan: ?Continue with aspirin ?Continue with GDMT therapy as able, on metoprolol 50 XL at this point #History of type 2 diabetes #History of hypertension A1c 6.1 Plan: ? Resume home medicines when able #ESRD, on HD Tuesday #hx of L nephroectomy #Lower extremity edema Likely related due to patient not getting enough dialysis Dr. Fields sees pt, says she goes for diaylsis 4x a week Plan: ? Nephrology on consult, appreciate recs #? GI bleed Hemoglobin around 10, FOBT positive recently Patient is on GoLytely prep, still not finished prep, refusing NG tube at this time Plan: ? Colonoscopy when patient finishes GoLytely prep and is ready for colonoscopy #Hypothyroidism TSH ~110, Free T4 0.46; Recheck shows TSH ~80s No hx of hypothyroidism in the past Pt's BP could be low because of this as well Hypothyroidism could be from superintendent container terminal Amio use, Will not resume Management of rest of the medical conditions as per primary team and other consultants. Thank you for the consult and allowing me to participate in the care of the patient. Cardiology will continue to follow. Orestes Dudley M.D. Interventional Cardiology Time Spent With Patient Time: Total time spent is greater than 50% in coordination of care (as documented) at patient's floor/unit and/or counseling patient:
[2024-08-01 22:02] LABS: Stool for WBCs 4+ (Negative)
[2024-08-02] VITALS (12 sets, daily range): BP systolic 90–121; BP diastolic 67–82; PULSE 72–112; RESP 16–94; TEMP 36.1–36.3; O2SAT 92–100; BMI 12.0
[2024-08-02] MEDS: ACETAMINOPHEN 325 MG TABLET 650 MG PO ×2 (04:23→21:24)
[2024-08-02] MEDS: LEVOTHYROXINE SODIUM 100 MCG TABLET PO (05:10)
[2024-08-02] MEDS: MIDODRINE 5 MG TABLET 15 MG PO ×3 (05:10→21:23)
[2024-08-02 06:09] LABS: Basophils % (Auto) 1 % (0-2.5); Eosinophils # (Auto) 0.1 Thou/mm3 (0.0-0.5); Eosinophils % (Auto) 3 % (0-10); Hematocrit 29.4 % (36.0-46.0); Hemoglobin 9.4 g/dL (12.0-16.0); Immature Granulocytes % (Auto) 1 % (0-0); Immature Granulocytes Auto 0.02 Thou/mm3 (0.00-0.00); Lymphocytes # (Auto) 0.8 Thou/mm3 (1.0-4.8); Lymphocytes % (Auto) 20 % (10-50); Mean Corpuscular Hemoglobin 31.4 pg (25.0-35.0); Mean Corpuscular Volume 98 fL (80-100); Monocytes # (Auto) 0.3 Thou/mm3 (0.0-0.8); Monocytes % (Auto) 8 % (0-12); Neutrophils # (Auto) 2.8 Thou/mm3 (1.8-7.7); Neutrophils % (Auto) 68 % (37-80); Nucleated Red Blood Cell # 0.05 Thou/mm3 (0.00-0.00); Nucleated Red Blood Cell % 1 /100 WBC (0); Platelet Count 143 Thou/mm3 (140-440); RDW Standard Deviation 64.2 fL (36.4-46.3); Red Blood Count 2.99 Miln/mm3 (4.00-5.20); White Blood Count 4.1 Thou/mm3 (3.6-11.0)
[2024-08-02 06:50] LABS: Alanine Aminotransferase 50 U/L (10-49); Albumin, Serum 3.8 gm/dL (3.4-4.8); Albumin/Globulin Ratio 1.6 (1.2-2.2); Alkaline Phosphatase 134 U/L (46-116); Anion Gap 13 (7-16); Aspartate Amino Transferase 25 U/L (0-34); BUN/Creatinine Ratio 5 Ratio (12-20); Bilirubin,Total 0.5 mg/dL (0.3-1.2); Blood Urea Nitrogen 30 mg/dL (9-23); Calcium 9.7 mg/dL (8.3-10.6); Calcium (Corrected) 9.9 mg/dL (8.5-10.1); Carbon Dioxide 22.8 mMol/L (20.0-31.0); Chloride 102 mMol/L (98-107); Creatinine (Component) 6.4 mg/dL (0.6-1.3); Estimated Creatinine Clearance 10.6 mL/min (>60); Globulin 2.4 gm/dL (2.3-3.5); Glucose 143 mg/dL (74-106); Magnesium 2.4 mg/dL (1.6-2.6); Osmolality,Calculated 283 (275-295); Phosphorous 2.8 mg/dL (2.4-5.1); Sodium 138 mMol/L (136-145); Thyroid Stimulating Hormone 29.14 uIU/mL (0.55-4.78); Total Protein 6.2 gm/dL (5.7-8.2); eGFR 7 See Note
--- NOTE | 2024-08-02 08:16 | ESPR_ITS ---
Documentation for date of: 08/02/24 Subjective Subjective Interval history: 07/30/2024: Pt examined at bedside today. Overnight event pt having rapid, afib rate in 150s was given metoprolol 5 mg IV, and was put on oxymask which brought pt's HR 100s-110s. Pt reports she is doing okay. She feels more weak at this time and is requesting for her to close her door once our examination was finished. She is agreeable to diaylsis today, BUN 31 and Cr 6.4, Phos 5.9, Potassium 3.5 and Mg 2.4. She denies any CP at this time. No other complaints. We will continue to do dialysis today, with goals of 1-2L as pt has been experiencing hypotension 07/31/2024: Patient examined at bedside today. Overnight patient appears to be rate controlled in the 100s. Patient reports she is feeling weak today, and is still feeling shortness of breath. She denies having any chest pain or palpitations. BUN/creatinine of 23 and 5.2, potassium 3.1 (repleted with 40 mEq), magnesium of 2.1 phosphorus of 3.8 (on Sevelamer). White count of 4.6, hemoglobin of 2.3. Patient seems to be in some shortness of breath, and still feeling lethargic. Will reassess respiratory status and try to ambulate patient more. Patient had 1 L removed yesterday during dialysis. Blood pressure still appears to be a bit soft, 93/62. 08/01/2024: Patient examined at dialysis bed today. Overnight patient did not have any events on telemetry, seems to be rate controlled 100s. She says she is feeling weak during dialysis, her blood pressure was soft in the 90s systolic during dialysis. Patient had not had any fluid removed at the time. Patient improved a bit with albumin, however still spoke with nephrology team for them to make further recommendations. Her BUN/creatinine today is 27 and 5.9 respectively, AST 38, mag 2.2 and phosphorus 2.7, white count of 4.2, hemoglobin 10.4, potassium 4.1, repeat TSH 29, free T40.63. Will continue with dig and Eliquis, patient will need to have dig level checked later this week. 08/02/2024: Pt examined at bedside today. Overnight, pt did not have any telemetry events. She says she did not sleep well, and is sleepy this morning. Her blood pressure remains to be soft, 90/72. BUN/creatinine 30 and 6.4 respectively, potassium 4, magnesium 2.1, phosphorus 2.8. Hemoglobin 9.4, white count 4.1. Patient was having episodes of diarrhea, primary team ordered stool cultures which were positive for +4WBCs, they also ordered C. difficile. Patient will be given digoxin today as well. Will have digoxin levels tomorrow. Exam Vital Signs Temp Pulse Resp BP Pulse Ox O2 Del Method O2 Flow Rate 97.0 F 112 H 21 H 90/72 99 Oxy Mask 2 08/02/24 04:00 08/02/24 05:10 08/02/24 04:00 08/02/24 05:10 08/02/24 04:00 08/02/24 04:00 08/01/24 21:47 Narrative Exam General: AAOx3, seems tired and sleepy HEENT: Moist mucous membranes, conjunctiva clear, EOMI, PERRLA, Cardiovascular: S1, S2, radial pulses +2 bilat, irregularly irregular Pulmonary: CTAB bilat no cough, no wheezing, wearing oxymask 3 L GI: No tenderness to light or deep palpitation, no guarding, rigidity, rebound tenderness or distension Extremities: +3 pitting edema in lower extremities bilaterally, dorsalis pedis pulses +2 bilaterally Neuro: AAOx3, no focal motor or sensory deficits in the UE or LE bilat Psych: Cooperative Objective Labs 08/02/24 05:01 08/02/24 05:01 Labs: Laboratory Results - last 24 hr 08/01/24 08/02/24 12:35 05:01 WBC 4.1 RBC 2.99 L Hgb 9.4 L Hct 29.4 L MCV 98 MCH 31.4 MCHC 32.0 RDW Std Deviation 64.2 H Plt Count 143 Neut % (Auto) 68 Lymph % (Auto) 20 [place] % (Auto) 8 Eos % (Auto) 3 Baso % (Auto) 1 Neut # (Auto) 2.8 Lymph # (Auto) 0.8 L [place] # (Auto) 0.3 Eos # (Auto) 0.1 Baso # (Auto) 0.0 Immature Gran # (Auto) 0.02 H Absolute Nucleated RBC 0.05 H Immature Gran % 1 H Nucleated RBC % 1 H Sodium 138 Potassium 4.0 Chloride 102 Carbon Dioxide 22.8 Anion Gap 13 BUN 30 H Creatinine 6.4 H* D Estim Creat Clear Calc 10.6 L eGFR 7 L* BUN/Creatinine Ratio 5 L Glucose 143 H Calculated Osmolality 283 Calcium 9.7 Corrected Calcium 9.9 Phosphorus 2.8 Magnesium 2.4 Total Bilirubin 0.5 AST 25 ALT 50 H Alkaline Phosphatase 134 H Total Protein 6.2 Albumin 3.8 Globulin 2.4 Albumin/Globulin Ratio 1.6 TSH 29.14 H Free T4 0.60 L Stool for White Cells 4+ A ABG Interpretation ABG results: 07/28/24 07/29/24 08:37 09:28 ABG pH 7.49 H ABG pCO2 35 ABG pO2 69 L ABG HCO3 27 H ABG O2 Saturation 95 ABG Base Excess 3 VBG pH 7.46 VBG pCO2 28 L VBG pO2 155 H VBG Base Excess -3 Quality Measures Quality Measures VTE prophylaxis Advance care planning discussed with:: patient Assessment & Plan Assessment Current Active Medications: Generic Name Dose Route Start Last Admin Trade Name Freq PRN Reason Stop Dose Admin Acetaminophen 650 mg 07/27/24 16:15 08/02/24 04:23 Acetaminophen 325 Mg Tablet PO 08/26/24 16:12 650 mg Q4HR PRN Administration mild pain 1-3 or Fever >100.4 Al Hydrox/Mg Hydrox/Simethicone 30 ml 07/27/24 18:41 07/30/24 13:52 Mg Hyd/Al Hyd/Alfredo (Maalox Reg) Susp 30 Ml Udc PO 08/26/24 18:40 30 ml QID PRN Administration UPSET STOMACH/INDIGESTION Apixaban 2.5 mg 07/22/24 09:00 08/01/24 20:09 Apixaban 2.5 Mg Tablet PO 08/21/24 08:59 2.5 mg BID KOTA Administration Aspirin 81 mg 07/22/24 09:00 08/01/24 08:09 Aspirin Ec 81 Mg Tabec PO 08/21/24 08:59 81 mg QDAY KOTA Administration Benzonatate 100 mg 07/21/24 11:42 07/26/24 19:45 Benzonatate 100 Mg Capsule PO 08/20/24 11:41 100 mg Q8HR PRN Administration COUGH Protocol Dextrose 25 ml 07/20/24 15:46 Dextrose 50%-Water Inj 50 Ml Syringe IV 08/19/24 15:45 Q15MIN PRN BG 50-70 responsive npo pt Dextrose 50 ml 07/20/24 15:46 07/21/24 07:46 Dextrose 50%-Water Inj 50 Ml Syringe IV 08/19/24 15:45 50 ml Q15MIN PRN Administration BG <50 OR BG <70 & pt unresponsive Digoxin 0.125 mg 07/29/24 08:00 07/31/24 09:05 Digoxin 0.125 Mg Tablet PO 08/28/24 07:59 0.125 mg Q48H KOTA Administration Glucagon 1 mg 07/20/24 15:46 Glucagon Inj 1 Mg Vial IM Q15MIN PRN BG <70, and no IV access Guaifenesin/Dextromethorphan 1 each 07/20/24 16:08 Guaifenesin/Dm Tablet PO 08/19/24 16:07 Q4HR PRN COUGH Protocol Albumin Human 25 gm in 100 mls @ 100 mls/min 07/20/24 17:18 07/30/24 19:20 Albuminar-25 Ivpb IV Infused PRN PRN Infusion DIALYSIS Insulin Human Lispro 0 unit 07/20/24 17:00 08/02/24 07:46 Insulin Lispro (Admelog) 1 Unit/0.01 Ml Unit SC 08/19/24 16:59 Not Given ACHS KOTA Protocol Insulin Human Lispro 5 unit 07/20/24 17:00 07/21/24 08:09 Insulin Lispro (Admelog) 1 Unit/0.01 Ml Unit SC 08/19/24 16:59 Not Given ACHS KOTA Ipratropium Rush 0.5 mg 07/31/24 12:50 Ipratropium Rt 0.5 Mg/ 2.5 Ml Nebu INH 08/19/24 18:59 Q6HRRT PRN WHEEZING Lactobacillus Rhamnosus 1 cap 08/01/24 09:00 08/01/24 20:07 Lactobacillus Rhamnosus 1 Cap PO 08/31/24 08:59 1 cap BID KOTA Administration Levalbuterol HCl 0.63 mg 07/31/24 12:49 Levalbuterol Rt 0.63 Mg/3 Ml Nebu INH 08/20/24 09:59 Q6HRRT PRN WHEEZING Levothyroxine Sodium 100 mcg 08/02/24 06:00 08/02/24 05:10 Levothyroxine Sodium 100 Mcg Tablet PO 09/01/24 05:59 100 mcg ACBR KOTA Administration Melatonin 3 mg 07/21/24 00:29 08/01/24 21:19 Melatonin 3 Mg Tablet PO 08/20/24 20:59 3 mg HS PRN Administration SLEEPLESSNESS Midodrine 15 mg 07/29/24 14:00 08/02/24 05:10 Midodrine 5 Mg Tablet PO 08/28/24 13:59 15 mg TID KOTA Administration Pantoprazole Sodium 40 mg 07/24/24 08:55 08/01/24 08:09 Pantoprazole Inj 40 Mg Vial IV 08/23/24 08:54 40 mg QDAY KOTA Administration Promethazine HCl/Dextromethorphan 5 ml 07/24/24 10:29 07/25/24 23:52 Promethazine/Dm Syrup 5 Ml Dose PO 08/23/24 10:28 5 ml Q6HR PRN Administration COUGH OR CONGESTION Protocol Sevelamer Carbonate 800 mg 07/30/24 08:00 08/01/24 17:47 Sevelamer Carbonate 800 Mg Tablet PO 08/29/24 07:59 Not Given TIDWM KOTA Simethicone 80 mg 07/30/24 13:07 Simethicone 80 Mg Chew PO 08/29/24 13:06 QID PRN GAS Plan Assessment Zina is a 67 y/o female from [facility] with a past medical history of DM type II, HTN, ESRD on HD MWF, CAD, CHF, atrial fibrillation on Eliquis, left renal neoplasm s/p nephrectomy who is admitted for Afib w/RVR. #A-fib with RVR, improving #History of cardiac arrest #Hypotension #Asymptomatic bradycardia, resolved CHADVASC score: 5 points, 7.2% stroke risk per year HAS-BLED score: 4 points Pt is rate controlled at this time and on Eliquis, rate 90s-100s still in afib Concern for thyroid issues due to amio half-way use, will continue with beta patti and titrate doses as needed Patient can be given midodrine 2.5 to 5 mg 15 to 30 minutes prior dialysis sessions if she goes hypotensive Patient had previous cardiac arrest in 2019 upon chart records, however not much information to be extrapolated from chart review Amiodarone was discontinued during this admission in the setting of abnormal thyroid function test with elevated TSH of 117. Continue to hold off on the amiodarone. Patient blood pressure was also soft and was hypotensive. Patient was on metoprolol XL 50 mg once daily. Digoxin also was stopped during this admission initially. Digoxin level to be checked tomorrow, patient remains to be rate controlled in the 100s. Plan: Continue Eliquis 5 mg twice daily Continue digoxin 125 mcg every other day and check digoxin level every 7 days. Keep potassium in the normal range between 3.5-5 and avoid hypokalemia and hyperkalemia to avoid any kind of dig toxicity as the patient is also on hemodialysis. Pt can be give IV amio if pt's patient goes into Afib with RVR We will hold off on metoprolol because of BP #History of CAD #History of chronic HFrEF with systolic dysfunction and dilated left ventricle and wall motion abnormalities #Trace pericardial effusion #Elevated troponins, NSTEMI type II, resolved Echo shows dilated left ventricle with mild global hypokinesis and moderate systolic dysfunction 35 to 40% for EF. She also has right ventricle systolic pressure of 62 and severe MAC, pleural effusion present in trace pericardial effusion. Blood pressure is still soft today Plan: ?Continue with aspirin ?Continue with GDMT therapy as able #Acute acute hypoxic respiratory failure secondary to #Bilateral pleural effusions Patient requiring more oxygen at this time, does not use home oxygen Patient may benefit from therapeutic thoracentesis, however patient may not tolerate procedure Plan: ? Consider thoracentesis #History of type 2 diabetes #History of hypertension A1c 6.1 Plan: ? Resume home medicines when able, handled by primary #ESRD, on HD Tuesday #hx of L nephroectomy #Lower extremity edema Likely related due to patient not getting enough dialysis Dr. Fields sees pt, says she goes for diaylsis 4x a week Plan: ? Nephrology on consult, appreciate recs #? 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 Octavia Mcmahon, PGY-1 Attending Provider Attestation/Addendum I have personally seen and examined the patient separately on the above date of service and discussed the plan of care with the resident. I reviewed the resident Dr. Steiner consultation progress note and agree with the resident findings and plan in the note above and have also edited the documentation to reflect my findings and plan. Orestes Dudley M.D. Interventional Cardiology
[2024-08-02] MEDS: PANTOPRAZOLE INJ 40 MG VIAL IV (08:50)
[2024-08-02] MEDS: LACTOBACILLUS RHAMNOSUS 1 CAP PO ×2 (08:51→21:24)
[2024-08-02] MEDS: SEVELAMER CARBONATE 800 MG TABLET PO ×3 (08:51→18:10)
[2024-08-02] MEDS: DIGOXIN 0.125 MG TABLET PO (08:51)
[2024-08-02] MEDS: APIXABAN 2.5 MG TABLET PO ×2 (08:51→21:24)
[2024-08-02] MEDS: ASPIRIN EC 81 MG TABEC PO (08:51)
[2024-08-02 09:40] LABS: Clostridium Difficile PCR Negative (Negative)
[2024-08-02] MEDS: INSULIN LISPRO (AdmeLOG) 1 UNIT/0.01 ML UNIT SC ×2 (12:07→21:29)
--- NOTE | 2024-08-02 14:53 | PC.IP ---
Pt. received tx for ESBL in the urine for 7 days and has not had fever for over 24 hours. Pt. may be removed from Contact Precaution
--- NOTE | 2024-08-02 14:53 | PD.RESPRO ---
Documentation for date of: 08/02/24 Subjective Subjective Interval history: No overnight events reported for patient. Patient continues complain of diffuse abdominal pain. 02/17. Increased blelching. Patient reported that 2 bowel movements soft but not watery as diarrhea. MAP has been stable >65. Denied chest pain or worsening dyspnea. Patient has been saturating well on 2 liters NC. C. diff Negative. Will likely d/c tomorrow after dialysis. Exam Vital Signs Temp Pulse Resp BP Pulse Ox O2 Del Method O2 Flow Rate 97.0 F 97 32 H 114/68 93 L Oxy Mask 3 08/02/24 12:00 08/02/24 12:00 08/02/24 12:00 08/02/24 12:00 08/02/24 12:08/02/24 12:08/02/24 12:00 Narrative Exam General Appearance: Alert & Oriented X3, well-nourished female who is lying in bed in no acute distress, but appearing tired. HEENT: Skull symmetrical and atraumatic. Conjunctivae pale pink and moist. Pupils equal, round, reactive to light and accommodation (PERRL). External ear without lesion or discharge. Straight, nares patient, mucosa pink, no discharge. No thyroid nodule appreciated. No cervical lymphadenopathy. Cardio: Normal Rate and Rhythm with S1 and S2 heart sounds. No murmurs or extra heart sounds auscultated. No bruits on carotid auscultation. Improved peripheral edeam, 2+ Lungs: Symmetric expansion. Chest and back non-tender. Breath sounds vesicular with crackles, improved Abdomen: Midl tenderness, Non-distended, Normal Reactive Bowel Sounds Neuro: Alert, cooperative, oriented to person, place, and time. Speech clear. CN grossly intact. Upper motor strength 5/5 and Lower motor strength 5/5. Sensation intact. Objective Labs 08/03/24 04:52 08/03/24 04:52 Labs: Laboratory Results - last 24 hr 08/01/24 08/02/24 12:35 05:01 WBC 4.1 RBC 2.99 L Hgb 9.4 L Hct 29.4 L MCV 98 MCH 31.4 MCHC 32.0 RDW Std Deviation 64.2 H Plt Count 143 Neut % (Auto) 68 Lymph % (Auto) 20 [place] % (Auto) 8 Eos % (Auto) 3 Baso % (Auto) 1 Neut # (Auto) 2.8 Lymph # (Auto) 0.8 L [place] # (Auto) 0.3 Eos # (Auto) 0.1 Baso # (Auto) 0.0 Immature Gran # (Auto) 0.02 H Absolute Nucleated RBC 0.05 H Immature Gran % 1 H Nucleated RBC % 1 H Sodium 138 Potassium 4.0 Chloride 102 Carbon Dioxide 22.8 Anion Gap 13 BUN 30 H Creatinine 6.4 H* D Estim Creat Clear Calc 10.6 L eGFR 7 L* BUN/Creatinine Ratio 5 L Glucose 143 H Calculated Osmolality 283 Calcium 9.7 Corrected Calcium 9.9 Phosphorus 2.8 Magnesium 2.4 Total Bilirubin 0.5 AST 25 ALT 50 H Alkaline Phosphatase 134 H Total Protein 6.2 Albumin 3.8 Globulin 2.4 Albumin/Globulin Ratio 1.6 TSH 29.14 H Free T4 0.60 L Stool for White Cells 4+ A Stl C. diff Tox B Gene Negative ABG Interpretation ABG results: 07/28/24 07/29/24 08:37 09:28 ABG pH 7.49 H ABG pCO2 35 ABG pO2 69 L ABG HCO3 27 H ABG O2 Saturation 95 ABG Base Excess 3 VBG pH 7.46 VBG pCO2 28 L VBG pO2 155 H VBG Base Excess -3 Quality Measures Quality Measures VTE prophylaxis Advance care planning discussed with:: patient and significant other Assessment & Plan Assessment Current Active Medications: Generic Name Dose Route Start Last Admin Trade Name Freq PRN Reason Stop Dose Admin Acetaminophen 650 mg 07/27/24 16:15 08/02/24 04:23 Acetaminophen 325 Mg Tablet PO 08/26/24 16:12 650 mg Q4HR PRN Administration mild pain 1-3 or Fever >100.4 Al Hydrox/Mg Hydrox/Simethicone 30 ml 07/27/24 18:41 07/30/24 13:52 Mg Hyd/Al Hyd/Alfredo (Maalox Reg) Susp 30 Ml Udc PO 08/26/24 18:40 30 ml QID PRN Administration UPSET STOMACH/INDIGESTION Apixaban 2.5 mg 07/22/24 09:00 08/02/24 08:51 Apixaban 2.5 Mg Tablet PO 08/21/24 08:59 2.5 mg BID KOTA Administration Aspirin 81 mg 07/22/24 09:00 08/02/24 08:51 Aspirin Ec 81 Mg Tabec PO 08/21/24 08:59 81 mg QDAY KOTA Administration Benzonatate 100 mg 07/21/24 11:42 07/26/24 19:45 Benzonatate 100 Mg Capsule PO 08/20/24 11:41 100 mg Q8HR PRN Administration COUGH Protocol Dextrose 25 ml 07/20/24 15:46 Dextrose 50%-Water Inj 50 Ml Syringe IV 08/19/24 15:45 Q15MIN PRN BG 50-70 responsive npo pt Dextrose 50 ml 07/20/24 15:46 07/21/24 07:46 Dextrose 50%-Water Inj 50 Ml Syringe IV 08/19/24 15:45 50 ml Q15MIN PRN Administration BG <50 OR BG <70 & pt unresponsive Digoxin 0.125 mg 07/29/24 08:00 08/02/24 08:51 Digoxin 0.125 Mg Tablet PO 08/28/24 07:59 0.125 mg Q48H KOTA Administration Glucagon 1 mg 07/20/24 15:46 Glucagon Inj 1 Mg Vial IM Q15MIN PRN BG <70, and no IV access Guaifenesin/Dextromethorphan 1 each 07/20/24 16:08 Guaifenesin/Dm Tablet PO 08/19/24 16:07 Q4HR PRN COUGH Protocol Albumin Human 25 gm in 100 mls @ 100 mls/min 07/20/24 17:18 07/30/24 19:20 Albuminar-25 Ivpb IV Infused PRN PRN Infusion DIALYSIS Insulin Human Lispro 0 unit 07/20/24 17:00 08/02/24 12:07 Insulin Lispro (Admelog) 1 Unit/0.01 Ml Unit SC 08/19/24 16:59 2 unit ACHS KOTA Administration Protocol Insulin Human Lispro 5 unit 07/20/24 17:00 07/21/24 08:09 Insulin Lispro (Admelog) 1 Unit/0.01 Ml Unit SC 08/19/24 16:59 Not Given ACHS KOTA Ipratropium [place] 0.5 mg 07/31/24 12:50 Ipratropium Rt 0.5 Mg/ 2.5 Ml Nebu INH 08/19/24 18:59 Q6HRRT PRN WHEEZING Lactobacillus Rhamnosus 1 cap 08/01/24 09:00 08/02/24 08:51 Lactobacillus Rhamnosus 1 Cap PO 08/31/24 08:59 1 cap BID KOTA Administration Levalbuterol HCl 0.63 mg 07/31/24 12:49 Levalbuterol Rt 0.63 Mg/3 Ml Nebu INH 08/20/24 09:59 Q6HRRT PRN WHEEZING Levothyroxine Sodium 100 mcg 08/02/24 06:00 08/02/24 05:10 Levothyroxine Sodium 100 Mcg Tablet PO 09/01/24 05:59 100 mcg ACBR KOTA Administration Melatonin 3 mg 07/21/24 00:29 08/01/24 21:19 Melatonin 3 Mg Tablet PO 08/20/24 20:59 3 mg HS PRN Administration SLEEPLESSNESS Midodrine 15 mg 07/29/24 14:00 08/02/24 05:10 Midodrine 5 Mg Tablet PO 08/28/24 13:59 15 mg TID KOTA Administration Pantoprazole Sodium 40 mg 07/24/24 08:55 08/02/24 08:50 Pantoprazole Inj 40 Mg Vial IV 08/23/24 08:54 40 mg QDAY KOTA Administration Promethazine HCl/Dextromethorphan 5 ml 07/24/24 10:29 07/25/24 23:52 Promethazine/Dm Syrup 5 Ml Dose PO 08/23/24 10:28 5 ml Q6HR PRN Administration COUGH OR CONGESTION Protocol Sevelamer Carbonate 800 mg 07/30/24 08:00 08/02/24 12:07 Sevelamer Carbonate 800 Mg Tablet PO 08/29/24 07:59 800 mg TIDWM KOTA Administration Simethicone 80 mg 07/30/24 13:07 Simethicone 80 Mg Chew PO 08/29/24 13:06 QID PRN GAS Plan Patient is a 68-year-old female with a past medical history of hypertension, diabetes mellitus type 2 insulin-dependent, CAD, CHF HFpEF 60-65%, ESRD (MWF), Atrial Fibrillation on Eliquis and history of renal cell carcinoma s/p Left nephrectomy (2022) who was admitted on who was admitted for acute chf exacerbation, pneumonia, and Atrial Fibrilation w/ RVR, rate controlled now, and Lower GI bleed, ruled out. #Hypotensive, improving Patient has had soft blood pressure with a MAP of less than 65 over the last several days. Has been started on midodrine 15 mg 3 times daily additionally given albumin during dialysis. Hypotension likely multifactorial ESRD, diarrhea secondary to hepatitis A, and hypothyroidism. systolic blood pressure improved on 08/02/2024. Plan: Midodrine 15 mg TID Give small bolus if need be. #ESRD (Tuesday) Patient has a past medical history of dialysis likely secondary to nephrectomy from renal cell carcinoma (2022). Inpatient dialysis started on 07/20/2024, Dr. Ventura consulted, when patient was admitted as she was feeling unwell. Patient unable to complete dialysis session on 08/01/2024, hypotensive. Patient only complete 17 minutes with a net removal of -500 ml. Persistent hypotension likely a combination of diarrhea, hypothyrodism and ESRD on dialyis. Continue to monitor MAP. Tentative goal of dialysis tomorrow-->likely d/c after dialysis. Plan Dialysis planned for tomorrow. Dialysis as per patient's home schedule Renally dose medication Avoid nephrotoxins Phosphorus AM labs Sevelamer 800 mg PO TIDWM Consult Nephrology, Appreciate Recommendations, Dr. Ventura #Hypothyroidism, improving Patient presented with a TSH level of 118.25 and a T4 of 0.46 and 1.7 T3. Levothyroxine started 25 mcg p.o. before meals. Medication induced versus euthyroidism versus myxedema coma (less likely). Second TSH 87.56 on 07/21/2024. Continue to follow TSH and Free T4. Slight decrease T4 0.60 (08/02/2024). Hypothyroidism likely secondary to medication induced given Amio and digoxin vs autoimmune vs less likely secondary to autoimmune. Levels will likely improve in 6-8 weeks. Plan: -Levothyroxine 100 mcg p.o. before meals -Free T4 & TSH AM labs #Diarrhea, improving Patient has multiple risk factors for persistent diarrhea. Active Hepatitis A diagnosis and still under two week jagdish has not been reached. Starting levothyroxine and recently increased vs Patient was recently on antibiotics. C.Diff negative. Diagnostics: -C.Diffe Tox B negative, Stool White Cells 4+, and Hep A positive Plan -probiotics #Atrial Fibrillation #Atrial fibrillation with RVR, stable Patient has a past medical history of atrial fibrillation. Home medication of amiodarone 400 twice daily and digoxin 125 mcg daily. Currently holding amiodarone twice daily given elevated TSH as it can cause hyper or hypothyroidism. Pending digoxin levels. Pending final recommendations from cardiology. Second EKG ordered, to confirm A-fib with RVR. RVR likely triggered by pneumonia, CHF exacerbation and lack of dialysis completion. 07/27/2024-patient experienced rapid during dialysis for MAP of 30 with a systolic blood pressure in 40s. Cardiology updated, stopped Metoprolol. START DIGOXIN. EKG on 07/27/2024 noted for Afib w/ rvr Plan -07/29/2024 Digoxin 0.125 every other day. -Follow up with digoxin levels every 7 days (08/06/2024) -Replete with caution K, as patient is a ESRD patient, goal 3.5-4 -If patient goes into Afib w/ rvr please give Amiodarone -Continue Metoprolol Succinate 50 mg HS, stopped -Cardiology Consulted, Dr. Ring, appreciate recommendations. #Acute CHF exacerbation #HFpEF 35 to 40% #Acute Hypoxic Respirtory Failure, continued #Elevated troponin Has a past medical history of CHF. No Lasix noted for patient. Preserved ejection fraction of 35 to 40% on 07/20/2024. Pulmonary pressure noted 62 mmHg. Patient patient scheduled for dialysis today, reevaluate tomorrow's fluid status. Patient still produces some urine. Positive Orthopnea. Positive Paroxsymal Orthopnea. Requires several pillows to sleep. Wheelchair bound. Lower Pedal edema noted, improved. Lower extremity wound noted-wound care. BNP 1261. Prominent vascular congestion on cxr. Patient produces minimal urine. Elevated troponin on admission, likely NSTEMI II given demand ischemia as there are no ST elevations. Plan: -Work toward GDMT -D/C Metoprolol Succinate -No lasix, very urine output -Cardiology Consult, appreciate recommendations. -wean of o2, currently on oxy mask continues to desat #Diabetes mellitus type 2 insulin-dependent #Hypoglycemic episode, resolved. Past medical history of diabetes mellitus with current A1c on admission 6.1% (07/2024). Patient stated she was on 40 units Glargine but that caused a hypoglycemic episode, D/C. Plan Sliding scale ACHS (lispor) follow AM labs #Hyperlipidemia #CAD Home medication atorvastatin. Currently holding Lipid Cholesterol 69 L, LDL 24, HDL 34; unable to calculate ASCVD given low cholesterol Plan Follow AST's ALT's Consider restarting Atorvastatin on discharge. Holding Atorvastatin, given transaminitis #Transaminitis, secondary hepatitis A and C+, improving #Lower GI bleed, resolved #Anemia normocytic, stable Plan for colonoscopy for lower GI bleed recorded positive FOBT. Given hepatitis A, likely contributing to lower GI bleed possible soft bowel movements reported by patient in the morning. Malignancy cannot be ruled out versus diverticulitis. Patient reported 2 episodes of diarrhea on 07/31/2024. Plan -Monitor -Colonoscopy as outpatient -GI consult, Dr. Krishnamurthy appreciate recommendations -Update SNF, social worker clinical. #Community-acquired Pneumonia likely GPC, Resolved #Urinary tract infection, complicated, resolved Health Maintenance: Disp: pending dialysis tomorrow, likely d/c FEN: Transition patient back to peptic ulcer diet/soft foods and advance as tolerated by patient DVT: resumed Eliquis Code: Full code - The patient's plan was discussed with attending Dr. Campos and senior residents Dr. Marguerite Lugo MD PGY1 Internal Medicine Senior Resident Attestation: I discussed with and supervised the internet sales consultant physician involved in the care of this patient. I personally saw and examined the patient and discussed the assessment and plan with the entire medicine team, including my attending. I agree with the assessment and plan as documented above. - Patient's care was discussed with my attending physician. George Everett MD Internal Medicine PGY-3 Attending Provider Attestation/Addendum I have examined the patient, reviewed labs and imaging findings, discussed the case with the resident(s), and reviewed entered orders. I agree with the plan of care as outlined in this note, with these additional summaries/recommendations: Patient seen at bedside. No acute overnight events. Patient and updated at bedside. She reports some improvement in diarrhea today. Stool studies are significant for 4+ WBCs and negative C. difficile. Hepatitis A+ and most likely source for diarrhea. Diarrhea most likely secondary to hep A. Blood pressure continues to be on the lower side despite midodrine 15 mg p.o. 3 times daily. Continue digoxin and Eliquis for atrial fibrillation. Rate remains somewhat labile trending in the 80s to 110s. Cardiology following. Free T4 relatively unchanged and TSH continues to improve. Continue hemodialysis for end-stage renal disease. We will continue levothyroxine at 100 mcg dose and patient should have repeat thyroid studies in 4 to 6 weeks. Insulin sliding scale for diabetes mellitus type 2. Dr. Campos
--- NOTE | 2024-08-02 16:30 | PD.RESPRO ---
Documentation for date of: 08/02/24 Subjective Subjective Interval history: Ms. Nguyễn is a 68-year-old who is well-known to me with a past medical history significant for hypertension, diabetes mellitus type 2 insulin-dependent, CAD, CHF HFpEF 60-65%, ESRD (MWF), Atrial Fibrillation on Eliquis and history of renal cell carcinoma s/p Left nephrectomy (2022) has been having significant fluid overload and sometimes receiving 4 times weekly dialysis presented to the emergency department with weakness, shortness of breath and high fevers. In the emergency department she was diagnosed with extensive bilateral pneumonia and also severe pulmonary vascular congestion. EKG showed A-fib with RVR. Labs showed WBC 5.2, hemoglobin 12.5, platelets 152. Sodium 132, potassium 3.6, BUN 28, creatinine 4.6, blood sugar 199, calcium 9.6, AST 65, ALT 44, alk phos 201, troponin 0.12, BNP 06/13/1959, albumin 4, TSH 118, Pro-Devon 0.43, urinalysis shows significant amount of blood and 1+ bacteria. Did level 0.4. Hepatitis STUART positive, hep C positive Admitted for pneumonia, acute chf exacerbation, and A-fib RVR, UTI Medication given in the emergency room Lasix 40 mg x 1, nitroglycerin, cefepime, morphine, aspirin 325. Nephrology consultation requested in view of need for dialysis. Patient currently on dialysis 07/22/2024 patient currently seen in telemetry. Still having significant shortness of breath and edema. Patient had a short run of dialysis yesterday. Next dialysis scheduled for tomorrow. Continue with antibiotics. Admitted with pneumonia/CHF exacerbation. 07/23/2024 patient was seen and examined at bedside. Blood pressure still on the soft side 99/65, pulse rate of 91, respiratory rate of 23, O2 saturation 99 on 1 L of oxygen. His hemoglobin is stable at 9.6, WBC 9, sodium show 133, potassium 4.7, serum creatinine 5.3, BUN 36. Urine culture came back positive for ESBL E. coli. Primary team started patient on meropenem. Patient will undergo a session of dialysis today as per his schedule 07/24/2024 Patient was seen and examined at bedside. Vitally patient was stable. However patient reported that she had episodes of rectal bleeding and also she injured her right foot. Primary team was informed about the bleeding that stopped her Eliquis and her aspirin and they put the patient on pantoprazole and consulted GI. Patient today still seems to be mildly overloaded. And her pertinent lab showed Hgb of 9.7 sodium today is 135, potassium 4.4, BUN of 33, creatinine 4.7, glucose 130, with mild elevation of AST and ALT. Patient reported significant cough primary team was informed that we will plan for the patient promethazine. 07/25/2024, patient was seen and examined at bedside. Patient denied any new symptoms however she seems to be overloaded today. Patient is getting GoLytely for preparation for the colonoscopy by Dr. Krishnamurthy. Her vital signs are within normal limits saturating 98% on 1 L of oxygen. Potassium today is 4.3, BUN of 35, creatinine 5.1, phosphorous 5.0 magnesium 2.1 calcium 9.5. Will reevaluate the patient tomorrow as she continued to get the GoLytely and will assess the patient if she needs extra session of dialysis tomorrow in addition to her dialysis today. 07/26/2024, patient was seen and examined at bedside. Patient denied any symptoms except that she was complaining of her GoLytely but she was not able to finish the whole bottle. It was noticed that the patient was taking ice and also multiple cans of 7-Up to help her with the taste of the GoLytely. Also patient was noticed to have increased lower extremity edema. For that reason, we will do extra session of dialysis for the patient to remove fluids only. Potassium 3.8, carbon dioxide 31.6, creatinine 3.8, BUN 21 calcium 9.5, magnesium 1.9, phosphorus 3.0 07/31/2024 patient was seen and examined at bedside. Her level of energy has improved significantly since yesterday. However her blood pressure is still in the low 90s over 60s. Patient denied any new symptoms denied any shortness of breath or chest pain. Yesterday the patient underwent dialysis. Today her potassium is 3.1 was given KCl p.o. 40 mill equivalent today. Her serum creatinine 5.2 BUN 23, phosphorus and magnesium within normal limits. Next dialysis will be tomorrow. 08/01/2024, patient was seen and examined at bedside. Her level of energy has improved however her blood pressure still on the soft side it was 92/65. Patient reported that she is still significantly having diarrhea for that reason we will prescribe the patient Ensure with her diet. Patient seems to be edematous however on auscultation her lungs are clear.Her hemoglobin today is 10.4, platelets 161, BUN 27, serum creatinine 5.9, potassium 4.1, glucose 152, calcium is 10.2 most likely due to immobilization, phosphorus 2.7, magnesium 2.1. Patient will undergo dialysis today at rate of 200 mL/ per minute. If her blood pressure right. 08/02/2024, patient was seen and examined at bedside. Her level of energy today is low. Yesterday dialysis was discontinued as the patient blood pressure decreased to a significant level. Today patient reported that she is feeling weak and sick however she denied any fever or chills. Patient will have tomorrow dialysis as per her schedule and we might consider adding 1 dose of cortisone before dialysis. Primary team put the patient on contact precautions to rule out C. difficile. Exam Vital Signs Temp Pulse Resp BP Pulse Ox O2 Del Method O2 Flow Rate 97.0 F 86 32 H 102/80 93 L Oxy Mask 3 08/02/24 12:00 08/02/24 14:54 08/02/24 12:00 08/02/24 14:54 08/02/24 12:00 08/02/24 12:00 08/02/24 12:00 Narrative Exam GEN: AOx3, low level of energy, able to speak full sentences HEENT: NC/AC, oral mucosa moist, neck supple CVS: RRR, S1-S2 present, no murmurs appreciated RESP: Mild crackles bilaterally basally, good air entry bilaterally. GI: soft, non distended, non tender, NBS MSK: able to move all 4 limbs, +3 lower extremity edema, right foot skin abrasion. SKIN: warm and dry HOLISTIC NUTRITIONIST: CN II-XII and Sensation grossly intact. Objective Labs 08/02/24 05:01 08/02/24 05:01 Labs: Laboratory Results - last 24 hr 08/01/24 08/02/24 12:35 05:01 WBC 4.1 RBC 2.99 L Hgb 9.4 L Hct 29.4 L MCV 98 MCH 31.4 MCHC 32.0 RDW Std Deviation 64.2 H Plt Count 143 Neut % (Auto) 68 Lymph % (Auto) 20 [place] % (Auto) 8 Eos % (Auto) 3 Baso % (Auto) 1 Neut # (Auto) 2.8 Lymph # (Auto) 0.8 L [place] # (Auto) 0.3 Eos # (Auto) 0.1 Baso # (Auto) 0.0 Immature Gran # (Auto) 0.02 H Absolute Nucleated RBC 0.05 H Immature Gran % 1 H Nucleated RBC % 1 H Sodium 138 Potassium 4.0 Chloride 102 Carbon Dioxide 22.8 Anion Gap 13 BUN 30 H Creatinine 6.4 H* D Estim Creat Clear Calc 10.6 L eGFR 7 L* BUN/Creatinine Ratio 5 L Glucose 143 H Calculated Osmolality 283 Calcium 9.7 Corrected Calcium 9.9 Phosphorus 2.8 Magnesium 2.4 Total Bilirubin 0.5 AST 25 ALT 50 H Alkaline Phosphatase 134 H Total Protein 6.2 Albumin 3.8 Globulin 2.4 Albumin/Globulin Ratio 1.6 TSH 29.14 H Free T4 0.60 L Stool for White Cells 4+ A Stl C. diff Tox B Gene Negative ABG Interpretation ABG results: 07/28/24 07/29/24 08:37 09:28 ABG pH 7.49 H ABG pCO2 35 ABG pO2 69 L ABG HCO3 27 H ABG O2 Saturation 95 ABG Base Excess 3 VBG pH 7.46 VBG pCO2 28 L VBG pO2 155 H VBG Base Excess -3 Quality Measures Quality Measures VTE prophylaxis Advance care planning discussed with:: patient Assessment & Plan Assessment Current Active Medications: Generic Name Dose Route Start Last Admin Trade Name Freq PRN Reason Stop Dose Admin Acetaminophen 650 mg 07/27/24 16:15 08/02/24 04:23 Acetaminophen 325 Mg Tablet PO 08/26/24 16:12 650 mg Q4HR PRN Administration mild pain 1-3 or Fever >100.4 Al Hydrox/Mg Hydrox/Simethicone 30 ml 07/27/24 18:41 07/30/24 13:52 Mg Hyd/Al Hyd/Alfredo (Maalox Reg) Susp 30 Ml Udc PO 08/26/24 18:40 30 ml QID PRN Administration UPSET STOMACH/INDIGESTION Apixaban 2.5 mg 07/22/24 09:00 08/02/24 08:51 Apixaban 2.5 Mg Tablet PO 08/21/24 08:59 2.5 mg BID KOTA Administration Aspirin 81 mg 07/22/24 09:00 08/02/24 08:51 Aspirin Ec 81 Mg Tabec PO 08/21/24 08:59 81 mg QDAY KOTA Administration Benzonatate 100 mg 07/21/24 11:42 07/26/24 19:45 Benzonatate 100 Mg Capsule PO 08/20/24 11:41 100 mg Q8HR PRN Administration COUGH Protocol Dextrose 25 ml 07/20/24 15:46 Dextrose 50%-Water Inj 50 Ml Syringe IV 08/19/24 15:45 Q15MIN PRN BG 50-70 responsive npo pt Dextrose 50 ml 07/20/24 15:46 07/21/24 07:46 Dextrose 50%-Water Inj 50 Ml Syringe IV 08/19/24 15:45 50 ml Q15MIN PRN Administration BG <50 OR BG <70 & pt unresponsive Digoxin 0.125 mg 07/29/24 08:00 08/02/24 08:51 Digoxin 0.125 Mg Tablet PO 08/28/24 07:59 0.125 mg Q48H KOTA Administration Glucagon 1 mg 07/20/24 15:46 Glucagon Inj 1 Mg Vial IM Q15MIN PRN BG <70, and no IV access Guaifenesin/Dextromethorphan 1 each 07/20/24 16:08 Guaifenesin/Dm Tablet PO 08/19/24 16:07 Q4HR PRN COUGH Protocol Albumin Human 25 gm in 100 mls @ 100 mls/min 07/20/24 17:18 07/30/24 19:20 Albuminar-25 Ivpb IV Infused PRN PRN Infusion DIALYSIS Insulin Human Lispro 0 unit 07/20/24 17:00 08/02/24 12:07 Insulin Lispro (Admelog) 1 Unit/0.01 Ml Unit SC 08/19/24 16:59 2 unit ACHS KOTA Administration Protocol Insulin Human Lispro 5 unit 07/20/24 17:00 07/21/24 08:09 Insulin Lispro (Admelog) 1 Unit/0.01 Ml Unit SC 08/19/24 16:59 Not Given ACHS KOTA Ipratropium [place] 0.5 mg 07/31/24 12:50 Ipratropium Rt 0.5 Mg/ 2.5 Ml Nebu INH 08/19/24 18:59 Q6HRRT PRN WHEEZING Lactobacillus Rhamnosus 1 cap 08/01/24 09:00 08/02/24 08:51 Lactobacillus Rhamnosus 1 Cap PO 08/31/24 08:59 1 cap BID KOTA Administration Levalbuterol HCl 0.63 mg 07/31/24 12:49 Levalbuterol Rt 0.63 Mg/3 Ml Nebu INH 08/20/24 09:59 Q6HRRT PRN WHEEZING Levothyroxine Sodium 100 mcg 08/02/24 06:00 08/02/24 05:10 Levothyroxine Sodium 100 Mcg Tablet PO 09/01/24 05:59 100 mcg ACBR KOTA Administration Melatonin 3 mg 07/21/24 00:29 08/01/24 21:19 Melatonin 3 Mg Tablet PO 08/20/24 20:59 3 mg HS PRN Administration SLEEPLESSNESS Midodrine 15 mg 07/29/24 14:00 08/02/24 14:54 Midodrine 5 Mg Tablet PO 08/28/24 13:59 15 mg TID KOTA Administration Pantoprazole Sodium 40 mg 07/24/24 08:55 08/02/24 08:50 Pantoprazole Inj 40 Mg Vial IV 08/23/24 08:54 40 mg QDAY KOTA Administration Promethazine HCl/Dextromethorphan 5 ml 07/24/24 10:29 07/25/24 23:52 Promethazine/Dm Syrup 5 Ml Dose PO 08/23/24 10:28 5 ml Q6HR PRN Administration COUGH OR CONGESTION Protocol Sevelamer Carbonate 800 mg 07/30/24 08:00 08/02/24 12:07 Sevelamer Carbonate 800 Mg Tablet PO 08/29/24 07:59 800 mg TIDWM KOTA Administration Simethicone 80 mg 07/30/24 13:07 Simethicone 80 Mg Chew PO 08/29/24 13:06 QID PRN GAS Plan Assessment and plan Summary: A 67 y/o female patient with significant medical history for ESRD on HD (MWF), DM2, HTN, CAD, Afib on Eliquis, CHF and left renal neoplasm s/p nephrectomy (on 05/14/23) BIBA to ED for shortness of breath, fever . nephrology was consulted due to patient's ESRD. #ESRD on hemodialysis M/W/F # Left Nephrectomy- Renal neoplasm Today patient was noticed to be overloaded for that reason patient will have extra session of dialysis today. Plan ? Dialysis will continued as per schedule, if the patient does not tolerate dialysis because of hypotension will consider adding fludrocortisone ? Continue midodrine 15 mg p.o. daily, first dose in the morning before dialysis. ? Albumin as needed for dialysis ? Strict in and out ? Ensure dietary supplements ? Pharmacy to dose medications #GI bleeding would likely depression or colonoscopy # Pneumonia # UTI # Hypothyroidism #DM #Afib #CAD// CHF Plan ? Follow-up with the primary team recommendations Thank you for the consultation, please do not hesitate to ask or reach out if you have any question or concerns - Patient's plan and care discussed with my attending, Dr. Audrey Miles MD Internal Medicine PGY-2 Attending Provider Attestation/Addendum Patient seen and examined with resident physician Dr. Ray. Note reviewed, agree with findings and recommendations. Blood pressure still remains on the lower side. On midodrine 15 mg p.o. 3 times daily. 2+ edema noted. Blood pressure 94/61, heart rate 95. Try to do dialysis Tuesday and Tuesday and unsuccessful due to hypotension. Hold dialysis today and plan for tomorrow if blood pressure better. Will also consider adding fludrocortisone in a.m. to aid in blood pressure management. However fludrocortisone can cause fluid retention. Will monitor closely.
--- NOTE | 2024-08-02 20:18 | ESPR_ITS ---
Documentation for date of: 08/02/24 Subjective Subjective Interval history: Slight drop in hemoglobin hematocrit to 9.4 and 29.4 but no signs of any active bleeding Dialysis had to stop because of the hypotension Exam Vital Signs Temp Pulse Resp BP Pulse Ox O2 Del Method O2 Flow Rate 97.0 F 95 33 H 94/71 100 Oxy Mask 3 08/02/24 16:00 08/02/24 16:00 08/02/24 16:00 08/02/24 16:00 08/02/24 16:00 08/02/24 16:00 08/02/24 16:00 Objective Labs 08/02/24 05:01 08/02/24 05:01 Labs: Laboratory Results - last 24 hr 08/01/24 08/02/24 12:35 05:01 WBC 4.1 RBC 2.99 L Hgb 9.4 L Hct 29.4 L MCV 98 MCH 31.4 MCHC 32.0 RDW Std Deviation 64.2 H Plt Count 143 Neut % (Auto) 68 Lymph % (Auto) 20 [place] % (Auto) 8 Eos % (Auto) 3 Baso % (Auto) 1 Neut # (Auto) 2.8 Lymph # (Auto) 0.8 L [place] # (Auto) 0.3 Eos # (Auto) 0.1 Baso # (Auto) 0.0 Immature Gran # (Auto) 0.02 H Absolute Nucleated RBC 0.05 H Immature Gran % 1 H Nucleated RBC % 1 H Sodium 138 Potassium 4.0 Chloride 102 Carbon Dioxide 22.8 Anion Gap 13 BUN 30 H Creatinine 6.4 H* D Estim Creat Clear Calc 10.6 L eGFR 7 L* BUN/Creatinine Ratio 5 L Glucose 143 H Calculated Osmolality 283 Calcium 9.7 Corrected Calcium 9.9 Phosphorus 2.8 Magnesium 2.4 Total Bilirubin 0.5 AST 25 ALT 50 H Alkaline Phosphatase 134 H Total Protein 6.2 Albumin 3.8 Globulin 2.4 Albumin/Globulin Ratio 1.6 TSH 29.14 H Free T4 0.60 L Stool for White Cells 4+ A Stl C. diff Tox B Gene Negative Impressions Impression: # Anemia blood loss # End-stage renal disease on hemodialysis Continue current management ABG Interpretation ABG results: 07/28/24 07/29/24 08:37 09:28 ABG pH 7.49 H ABG pCO2 35 ABG pO2 69 L ABG HCO3 27 H ABG O2 Saturation 95 ABG Base Excess 3 VBG pH 7.46 VBG pCO2 28 L VBG pO2 155 H VBG Base Excess -3 Assessment & Plan A&P Chelo Izaguirre is a 67 y/[facility] with a past medical history of DM type II, HTN, ESRD on HD MWF, CAD, CHF, atrial fibrillation on Eliquis, left renal neoplasm s/p nephrectomy who is admitted for Afib w/RVR. #A-fib with RVR #History of cardiac arrest #Hypotension #Asymptomatic bradycardia, resolved CHADVASC score: 5 points, 7.2% stroke risk per year HAS-BLED score: 4 points Pt is rate controlled at this time and on Eliquis, rate 90s-100s still in afib Concern for thyroid issues due to am[employer] use, will continue with beta patti and titrate doses as needed Patient can be given midodrine 2.5 to 5 mg 15 to 30 minutes prior dialysis sessions if she goes hypotensive Patient had previous cardiac arrest in 2019 upon chart records, however not much information to be extrapolated from chart review Amiodarone was discontinued during this admission in the setting of abnormal thyroid function test with elevated TSH of 117. Continue to hold off on the amiodarone. Patient blood pressure was also soft and was hypotensive. Patient was on metoprolol XL 50 mg once daily. Digoxin also was stopped during this admission initially. Patient was being prepped for possible colonoscopy with greatly over the last couple of days but patient has not been able to drink the complete fluids. Given the GoLytely prep which can also cause severe electrolyte abnormalities, stopping of the amiodarone as well as the digoxin and the dialysis which could also cause significant fluid shifts patient probably reverted back into atrial fibrillation with RVR. Stopped metoprolol, started on digoxin renal dosing and continue to hold on amiodarone. Plan: Continue Eliquis 5 mg twice daily if no other procedures planned Telemetry reviewed and patient heart rate is now better controlled between 80- 100 bpm Recommend to continue digoxin 125 mcg every other day and check digoxin level every 7 days. Keep potassium in the normal range between 3.5-5 and avoid hypokalemia and hyperkalemia to avoid any kind of dig toxicity as the patient is also on hemodialysis. Will hold off on the amiodarone given her abnormal thyroid function test with signs and symptoms of myxedema. Hold off on the metoprolol XL as the patient is hypotensive. Patient continues to be hypoxic today and is oxygen via Ventimask at 10 L. Patient apparently was lethargic this morning and primary team did consult ICU as the patient is also hypotensive Patient was given levothyroxine 100 mcg x 1 and also hydrocortisone 100 mg x 1 and started on midodrine 10 mg 3 times daily for now. During my examination patient appears to be awake alert and able to answer questions but still appears to be in respiratory distress. On examination patient still continues to have significant edema and chest x-ray does show worsening bilateral pleural effusions. Patient will need dialysis and will need possible pressure support. All antihypertensives were discontinued. Discussed with the primary team again to speak with endocrinology to increase the dose of levothyroxine at least to 75 mcg once daily and 100 mcg once daily given her overall presentation of severe hypothyroidism which is contributing to her clinical status at the present point of time. Patient did not have any of the session of dialysis as the patient continues to be mildly hypotensive. #History of CAD #History of chronic HFrEF with systolic dysfunction and dilated left ventricle and wall motion abnormalities #Trace pericardial effusion #Elevated troponins, NSTEMI type II, resolved Echo shows dilated left ventricle with mild global hypokinesis and moderate systolic dysfunction 35 to 40% for EF. She also has right ventricle systolic pressure of 62 and severe MAC, pleural effusion present in trace pericardial effusion. Plan: ?Continue with aspirin ?Continue with GDMT therapy as able, on metoprolol 50 XL at this point #History of type 2 diabetes #History of hypertension A1c 6.1 Plan: ? Resume home medicines when able #ESRD, on HD Tuesday #hx of L nephroectomy #Lower extremity edema Likely related due to patient not getting enough dialysis Dr. Fields sees pt, says she goes for diaylsis 4x a week Plan: ? Nephrology on consult, appreciate recs #? GI bleed Hemoglobin around 10, FOBT positive recently Patient is on GoLytely prep, still not finished prep, refusing NG tube at this time Plan: ? Colonoscopy when patient finishes GoLytely prep and is ready for colonoscopy #Hypothyroidism TSH ~110, Free T4 0.46; Recheck shows TSH ~80s No hx of hypothyroidism in the past Pt's BP could be low because of this as well Hypothyroidism could be from [employer] use, Will not resume Management of rest of the medical conditions as per primary team and other consultants. Thank you for the consult and allowing me to participate in the care of the patient. Cardiology will continue to follow. Orestes Dudley M.D. Interventional Cardiology Time Spent With Patient Time: Total time spent is greater than 50% in coordination of care (as documented) at patient's floor/unit and/or counseling patient:
[2024-08-02] MEDS: MELATONIN 3 MG TABLET PO (21:24)
[2024-08-03] VITALS (20 sets, daily range): BP systolic 76–117; BP diastolic 44–86; PULSE 63–130; RESP 18–95; TEMP 35.2–36.3; O2SAT 90–100; BMI 33.0
[2024-08-03] MEDS: LEVOTHYROXINE SODIUM 100 MCG TABLET PO (05:12)
[2024-08-03] MEDS: MIDODRINE 5 MG TABLET 15 MG PO ×2 (05:12→14:19)
[2024-08-03 05:57] LABS: Basophils % (Auto) 0 % (0-2.5); Eosinophils # (Auto) 0.1 Thou/mm3 (0.0-0.5); Eosinophils % (Auto) 1 % (0-10); Hematocrit 33.6 % (36.0-46.0); Immature Granulocytes % (Auto) 1 % (0-0); Immature Granulocytes Auto 0.03 Thou/mm3 (0.00-0.00); Lymphocytes # (Auto) 0.9 Thou/mm3 (1.0-4.8); Lymphocytes % (Auto) 15 % (10-50); Mean Corpuscular HGB Conc 32.7 g/dl (31.0-37.0); Mean Corpuscular Hemoglobin 31.9 pg (25.0-35.0); Mean Corpuscular Volume 97 fL (80-100); Monocytes # (Auto) 0.4 Thou/mm3 (0.0-0.8); Monocytes % (Auto) 6 % (0-12); Neutrophils # (Auto) 4.6 Thou/mm3 (1.8-7.7); Neutrophils % (Auto) 77 % (37-80); Nucleated Red Blood Cell # 0.06 Thou/mm3 (0.00-0.00); Nucleated Red Blood Cell % 1 /100 WBC (0); Platelet Count 160 Thou/mm3 (140-440); RDW Standard Deviation 66.7 fL (36.4-46.3); Red Blood Count 3.45 Miln/mm3 (4.00-5.20); White Blood Count 5.9 Thou/mm3 (3.6-11.0)
[2024-08-03 06:57] LABS: Alanine Aminotransferase 50 U/L (10-49); Albumin, Serum 4.2 gm/dL (3.4-4.8); Albumin/Globulin Ratio 1.6 (1.2-2.2); Alkaline Phosphatase 167 U/L (46-116); Anion Gap 15 (7-16); Aspartate Amino Transferase 33 U/L (0-34); BUN/Creatinine Ratio 5 Ratio (12-20); Bilirubin,Total 0.7 mg/dL (0.3-1.2); Blood Urea Nitrogen 33 mg/dL (9-23); Carbon Dioxide 21.3 mMol/L (20.0-31.0); Chloride 101 mMol/L (98-107); Creatinine (Component) 7.1 mg/dL (0.6-1.3); Estimated Creatinine Clearance 9.6 mL/min (>60); Free T4 (Free Thyroxine) 0.79 ng/dL (0.89-1.76); Globulin 2.7 gm/dL (2.3-3.5); Glucose 117 mg/dL (74-106); Magnesium 2.6 mg/dL (1.6-2.6); Osmolality,Calculated 282 (275-295); Phosphorous 3.4 mg/dL (2.4-5.1); Sodium 137 mMol/L (136-145); Thyroid Stimulating Hormone 36.99 uIU/mL (0.55-4.78); Total Protein 6.9 gm/dL (5.7-8.2); eGFR 6 See Note
[2024-08-03] MEDS: ALBUMIN HUMAN 25% IVPB 25 GM/100 ML BTL IV (08:00)
--- NOTE | 2024-08-03 08:15 | ESPR_ITS ---
Documentation for date of: 08/03/24 Subjective Subjective Interval history: 07/30/2024: Pt examined at bedside today. Overnight event pt having rapid, afib rate in 150s was given metoprolol 5 mg IV, and was put on oxymask which brought pt's HR 100s-110s. Pt reports she is doing okay. She feels more weak at this time and is requesting for her to close her door once our examination was finished. She is agreeable to diaylsis today, BUN 31 and Cr 6.4, Phos 5.9, Potassium 3.5 and Mg 2.4. She denies any CP at this time. No other complaints. We will continue to do dialysis today, with goals of 1-2L as pt has been experiencing hypotension 07/31/2024: Patient examined at bedside today. Overnight patient appears to be rate controlled in the 100s. Patient reports she is feeling weak today, and is still feeling shortness of breath. She denies having any chest pain or palpitations. BUN/creatinine of 23 and 5.2, potassium 3.1 (repleted with 40 mEq), magnesium of 2.1 phosphorus of 3.8 (on Sevelamer). White count of 4.6, hemoglobin of 2.3. Patient seems to be in some shortness of breath, and still feeling lethargic. Will reassess respiratory status and try to ambulate patient more. Patient had 1 L removed yesterday during dialysis. Blood pressure still appears to be a bit soft, 93/62. 08/01/2024: Patient examined at dialysis bed today. Overnight patient did not have any events on telemetry, seems to be rate controlled 100s. She says she is feeling weak during dialysis, her blood pressure was soft in the 90s systolic during dialysis. Patient had not had any fluid removed at the time. Patient improved a bit with albumin, however still spoke with nephrology team for them to make further recommendations. Her BUN/creatinine today is 27 and 5.9 respectively, AST 38, mag 2.2 and phosphorus 2.7, white count of 4.2, hemoglobin 10.4, potassium 4.1, repeat TSH 29, free T40.63. Will continue with dig and Eliquis, patient will need to have dig level checked later this week. 08/02/2024: Pt examined at bedside today. Overnight, pt did not have any telemetry events. She says she did not sleep well, and is sleepy this morning. Her blood pressure remains to be soft, 90/72. BUN/creatinine 30 and 6.4 respectively, potassium 4, magnesium 2.1, phosphorus 2.8. Hemoglobin 9.4, white count 4.1. Patient was having episodes of diarrhea, primary team ordered stool cultures which were positive for +4WBCs, they also ordered C. difficile. Patient will be given digoxin today as well. Will have digoxin levels tomorrow. 08/03/2024: Pt examined at dialysis bed today. Overnight, pt remain tachycardic in the 140s for her rate on telemetry. She says that she did not sleep well. Her blood pressure remains to be soft in 90s systolic. BUN/creatinine 33 and 1.1 respectively, magnesium 2.6, phosphorus 3.4, potassium 4, hemoglobin 11, white count of 5.9. Patient will continue his dialysis, however is requesting Tylenol during dialysis. She is also complaining of some abdominal pain. Shortly after dialysis, pt had rapid response called for tachycardia, rate in the 140s, and pt was complaining of some abd and R sided chest pain. EKG, troponins, ABGs were collected. Blood pressure remains stable 100s systolic during diaylsis. Exam Vital Signs Temp Pulse Resp BP Pulse Ox O2 Del Method O2 Flow Rate 97.3 F 115 H 20 115/86 H 97 Nasal Cannula 4 08/03/24 08:00 08/03/24 08:00 08/03/24 08:00 08/03/24 08:00 08/03/24 08:00 08/03/24 08:00 08/03/24 08:00 Narrative Exam General: AAOx3, seems to be in mild distress, in dialysis bed HEENT: Dry mucous membranes, conjunctiva clear, EOMI, PERRLA, Cardiovascular: S1, S2, radial pulses +2 bilat, irregularly irregular Pulmonary: Crackles in lung anderson , no wheezing, wearing oxymask 3 L GI: No tenderness to light or deep palpitation, no guarding, rigidity, rebound tenderness or distension Extremities: +2 pitting edema in lower extremities bilaterally, dorsalis pedis pulses +2 bilaterally, purpura present in UE bilat Neuro: AAOx3, no focal motor or sensory deficits in the UE or LE bilat Psych: Cooperative Objective Labs 08/03/24 04:52 08/03/24 04:52 Labs: Laboratory Results - last 24 hr 08/01/24 08/03/24 12:35 04:52 WBC 5.9 D RBC 3.45 L Hgb 11.0 L Hct 33.6 L MCV 97 MCH 31.9 MCHC 32.7 RDW Std Deviation 66.7 H Plt Count 160 Neut % (Auto) 77 Lymph % (Auto) 15 [place] % (Auto) 6 Eos % (Auto) 1 Baso % (Auto) 0 Neut # (Auto) 4.6 Lymph # (Auto) 0.9 L [place] # (Auto) 0.4 Eos # (Auto) 0.1 Baso # (Auto) 0.0 Immature Gran # (Auto) 0.03 H Absolute Nucleated RBC 0.06 H Immature Gran % 1 H Nucleated RBC % 1 H Sodium 137 Potassium 4.0 Chloride 101 Carbon Dioxide 21.3 Anion Gap 15 BUN 33 H Creatinine 7.1 H* D Estim Creat Clear Calc 9.6 L eGFR 6 L* BUN/Creatinine Ratio 5 L Glucose 117 H Calculated Osmolality 282 Calcium 10.0 Corrected Calcium 10.0 Phosphorus 3.4 Magnesium 2.6 Total Bilirubin 0.7 AST 33 ALT 50 H Alkaline Phosphatase 167 H D Total Protein 6.9 Albumin 4.2 Globulin 2.7 Albumin/Globulin Ratio 1.6 TSH 36.99 H D Free T4 0.79 L Stl C. diff Tox B Gene Negative ABG Interpretation ABG results: 07/28/24 07/29/24 08:37 09:28 ABG pH 7.49 H ABG pCO2 35 ABG pO2 69 L ABG HCO3 27 H ABG O2 Saturation 95 ABG Base Excess 3 VBG pH 7.46 VBG pCO2 28 L VBG pO2 155 H VBG Base Excess -3 Quality Measures Quality Measures VTE prophylaxis Advance care planning discussed with:: patient Assessment & Plan Assessment Current Active Medications: Generic Name Dose Route Start Last Admin Trade Name Freq PRN Reason Stop Dose Admin Acetaminophen 650 mg 07/27/24 16:15 08/02/24 21:24 Acetaminophen 325 Mg Tablet PO 08/26/24 16:12 650 mg Q4HR PRN Administration mild pain 1-3 or Fever >100.4 Al Hydrox/Mg Hydrox/Simethicone 30 ml 07/27/24 18:41 07/30/24 13:52 Mg Hyd/Al Hyd/Alfredo (Maalox Reg) Susp 30 Ml Udc PO 08/26/24 18:40 30 ml QID PRN Administration UPSET STOMACH/INDIGESTION Apixaban 2.5 mg 07/22/24 09:00 08/02/24 21:24 Apixaban 2.5 Mg Tablet PO 08/21/24 08:59 2.5 mg BID KOTA Administration Aspirin 81 mg 07/22/24 09:00 08/02/24 08:51 Aspirin Ec 81 Mg Tabec PO 08/21/24 08:59 81 mg QDAY KOTA Administration Benzonatate 100 mg 07/21/24 11:42 07/26/24 19:45 Benzonatate 100 Mg Capsule PO 08/20/24 11:41 100 mg Q8HR PRN Administration COUGH Protocol Dextrose 25 ml 07/20/24 15:46 Dextrose 50%-Water Inj 50 Ml Syringe IV 08/19/24 15:45 Q15MIN PRN BG 50-70 responsive npo pt Dextrose 50 ml 07/20/24 15:46 07/21/24 07:46 Dextrose 50%-Water Inj 50 Ml Syringe IV 08/19/24 15:45 50 ml Q15MIN PRN Administration BG <50 OR BG <70 & pt unresponsive Digoxin 0.125 mg 07/29/24 08:00 08/02/24 08:51 Digoxin 0.125 Mg Tablet PO 08/28/24 07:59 0.125 mg Q48H KOTA Administration Epoetin Ant 10,000 unit 08/03/24 09:00 Epoetin Ant-Epbx Inj 10,000 Unit/Ml Vial (Esrd) SC 08/03/24 09:01 X1 ONE Glucagon 1 mg 07/20/24 15:46 Glucagon Inj 1 Mg Vial IM Q15MIN PRN BG <70, and no IV access Guaifenesin/Dextromethorphan 1 each 07/20/24 16:08 Guaifenesin/Dm Tablet PO 08/19/24 16:07 Q4HR PRN COUGH Protocol Insulin Human Lispro 0 unit 07/20/24 17:00 08/02/24 21:29 Insulin Lispro (Admelog) 1 Unit/0.01 Ml Unit SC 08/19/24 16:59 2 unit ACHS KOTA Administration Protocol Insulin Human Lispro 5 unit 07/20/24 17:00 07/21/24 08:09 Insulin Lispro (Admelog) 1 Unit/0.01 Ml Unit SC 08/19/24 16:59 Not Given ACHS KOTA Ipratropium [place] 0.5 mg 07/31/24 12:50 Ipratropium Rt 0.5 Mg/ 2.5 Ml Nebu INH 08/19/24 18:59 Q6HRRT PRN WHEEZING Lactobacillus Rhamnosus 1 cap 08/01/24 09:00 08/02/24 21:24 Lactobacillus Rhamnosus 1 Cap PO 08/31/24 08:59 1 cap BID KOTA Administration Levalbuterol HCl 0.63 mg 07/31/24 12:49 Levalbuterol Rt 0.63 Mg/3 Ml Nebu INH 08/20/24 09:59 Q6HRRT PRN WHEEZING Levothyroxine Sodium 100 mcg 08/02/24 06:00 08/03/24 05:12 Levothyroxine Sodium 100 Mcg Tablet PO 09/01/24 05:59 100 mcg ACBR KOTA Administration Melatonin 3 mg 07/21/24 00:29 08/02/24 21:24 Melatonin 3 Mg Tablet PO 08/20/24 20:59 3 mg HS PRN Administration SLEEPLESSNESS Midodrine 15 mg 07/29/24 14:00 08/03/24 05:12 Midodrine 5 Mg Tablet PO 08/28/24 13:59 15 mg TID KOTA Administration Pantoprazole Sodium 40 mg 07/24/24 08:55 08/02/24 08:50 Pantoprazole Inj 40 Mg Vial IV 08/23/24 08:54 40 mg QDAY KOTA Administration Promethazine HCl/Dextromethorphan 5 ml 07/24/24 10:29 07/25/24 23:52 Promethazine/Dm Syrup 5 Ml Dose PO 08/23/24 10:28 5 ml Q6HR PRN Administration COUGH OR CONGESTION Protocol Sevelamer Carbonate 800 mg 07/30/24 08:00 08/02/24 18:10 Sevelamer Carbonate 800 Mg Tablet PO 08/29/24 07:59 800 mg TIDWM KOTA Administration Simethicone 80 mg 07/30/24 13:07 Simethicone 80 Mg Chew PO 08/29/24 13:06 QID PRN GAS Plan Assessment Zina is a 67 y/o female from [place] with a past medical history of DM type II, HTN, ESRD on HD MWF, CAD, CHF, atrial fibrillation on Eliquis, left renal neoplasm s/p nephrectomy who is admitted for Afib w/RVR. #A-fib with RVR, improving #History of cardiac arrest #Hypotension #Asymptomatic bradycardia, resolved #Hospice care CHADVASC score: 5 points, 7.2% stroke risk per year HAS-BLED score: 4 points Pt is rate controlled at this time and on Eliquis, rate 90s-100s still in afib Concern for thyroid issues due to amio terminal operations manager use, will continue with beta patti and titrate doses as needed Patient can be given midodrine 2.5 to 5 mg 15 to 30 minutes prior dialysis sessions if she goes hypotensive Patient had previous cardiac arrest in 2019 upon chart records, however not much information to be extrapolated from chart review Metoprolol held b/c of hypotension Digoxin level to be checked 08/06 Pt remains to be uncomfortable during dialysis Goals of care had with patient conducted by primary Patient changed her CODE STATUS to DNR/DNI and wants hospice Still recommend medical management with hospice Plan: Continue Eliquis 5 mg twice daily Continue digoxin 125 mcg every other day and check digoxin level every 7 days If patient needs, can resume Amio 200 mg every day Keep potassium in the normal range between 3.5-5 and avoid hypokalemia and hyperkalemia to avoid any kind of dig toxicity as the patient is also on hemodialysis. #History of CAD #History of chronic HFrEF with systolic dysfunction and dilated left ventricle and wall motion abnormalities #Trace pericardial effusion #Elevated troponins, NSTEMI type II, resolved Echo shows dilated left ventricle with mild global hypokinesis and moderate systolic dysfunction 35 to 40% for EF. She also has right ventricle systolic pressure of 62 and severe MAC, pleural effusion present in trace pericardial effusion. Blood pressure is still soft today Plan: ?Continue with aspirin ?Continue with GDMT therapy as able #Acute acute hypoxic respiratory failure secondary to #Bilateral pleural effusions Patient requiring more oxygen at this time, does not use home oxygen Patient may benefit from therapeutic thoracentesis, however patient may not tolerate procedure Pt continues to be uncomfortable, should reconsider having thoracentesis for therapeutic benefit Plan: ? Consider thoracentesis #History of type 2 diabetes #History of hypertension A1c 6.1 Plan: ? Resume home medicines when able, handled by primary #ESRD, on HD Tuesday #hx of L nephroectomy #Lower extremity edema Likely related due to patient not getting enough dialysis Dr. Fields sees pt, says she goes for diaylsis 4x a week Plan: ? Nephrology on consult, appreciate recs #? GI bleed Hemoglobin ~11, FOBT positive recently Plan: ?Outpatient colonoscopy #Hypothyroidism TSH ~37, free T4 0.79 No hx of hypothyroidism in the past Pt's BP could be low because of this as well Hypothyroidism could be from terminal operations manager Amio use, Will not resume Curbsided Endo and ICU with above recommendations Plan: Continue Synthroid 100 mcg Patient seen and care discussed with my attending physician, Dr. Octavia Mcmahon, PGY-1 Attending Provider Attestation/Addendum I have personally seen and examined the patient separately on the above date of service and discussed the plan of care with the resident. I reviewed the resident Dr. Steiner consultation progress note and agree with the resident findings and plan in the note above and have also edited the documentation to reflect my findings and plan. As noted in the assessment and plan by the resident patient had a rapid response this afternoon and patient was unable to tolerate dialysis and complained more of abdominal pain rather than any kind of chest pain she had more of shortness of breath and some right-sided chest discomfort which was documented but during my examination she only complained of shortness of breath and abdominal pain. Patient has not been able to tolerate the dialysis for the last 2 sessions and was being under dialyzed as the patient was hypotensive also. Today also patient was not able to complete the dialysis and patient shortness of breath is mostly from worsening fluid overload. Troponins were elevated at 2.3. EKG still shows atrial fibrillation without any major acute ST-T changes. Patient does not complain of any chest pain or chest surgery. Her troponin elevation is mostly secondary to type II NSTEMI in the setting of supply/demand mismatch in mostly to increase demand during the dialysis. Patient possibly has underlying CAD given all her comorbidities. But given that she has not been able to get dialysis over the last few sessions and her multiple comorbidities primary team did discuss the goals of care with the patient and she wanted to be DNR/DNI and changed her CODE STATUS to the same. Patient also did not want to pursue any cardiac interventions or any other interventions and wanted to pursue hospice with medical management. Recommend to discharge the patient with digoxin 125 mcg every other day for rate control and check digoxin levels as she is on dialysis. Can continue Eliquis for atrial fibrillation. Recommend to treat the NSTEMI medically and if patient able to tolerate patient can be on Plavix 75 mg once daily or at least patient should be started on aspirin 81 mg once daily along with Eliquis 2.5 mg twice daily. Patient is hypotensive and cannot start any kind of beta-patti but once blood pressure is stable patient can be started on metoprolol XL 25 mg once daily and can uptitrate it. Hospice to continue further management as per the primary team and plan to discharge today. Management of rest of the medical conditions as per primary team and other consultants. Thank you for the consult and allowing me to participate in the care of the patient. Cardiology will sign off for now. Orestes Dudley M.D. Interventional Cardiology
--- NOTE | 2024-08-03 09:27 | PC.NURSE ---
called CARE CONSULTANT on pt, pt at dialysis, desaturated several times,80s on 4L/min, christopher rn increased up to 10L/min on oxymask, pt complaining of abd pain and I don't feel good heart rate afib 110-140s. at bedside, misael charge at bedside see CARE CONSULTANT form
--- NOTE | 2024-08-03 09:28 | CHAP ---
Responded to Rapid Response at 09:28. No family present. All was good.
--- NOTE | 2024-08-03 09:28 | EKG_ITS ---
[facility] Test Date: 2024-08-03 Pat Name: BERT ALEJANDRO Department: Room: S363A Gender: Female General Manager [employer]: LINDSAY : 1955 Requested By: [place] Order Number: [id number] Reading MD: [place] Measurements Intervals [place] Rate: 117 P: DE: QRS: 137 QRSD: 83 T: -32 QT: 274 QTc: 383 Interpretive Statements ATRIAL FIBRILLATION WITH RAPID VENTRICULAR RESPONSE POSSIBLE RIGHT VENTRICULAR HYPERTROPHY [SOME/ALL OF: PROMINENT R IN V1, LATE TRANSITION, RAD, LYNETTE, SSS] ANTEROSEPTAL MYOCARDIAL INFARCTION , PROBABLY OLD [40+ ms Q WAVE IN V1-V4] Compared to ECG 07/31/2024 09:47:01 No significant changes /store/S0/[id number]/[id number].pdf
--- NOTE | 2024-08-03 09:28 | XR_ITS ---
Examination: AP chest single view Technique one AP portable sitting chest single view Exam date and time: August 03, 2024 0951 hours Comparison July 29, 2024 INDICATIONS: Shortness of breath today. FINDINGS: Prominent CHF Enlarged cardiac contour with prominent vascular congestion and perihilar edema Suspicious for large left pleural effusion Prominent osteopenia IMPRESSION: Prominent CHF Consider ultrasound left hemithorax
--- NOTE | 2024-08-03 09:32 | PC.SS ---
SS attempted to contact patient's to schedule a Goals of Care meeting, Rapid called during dialysis. SS left Voicemail with SS contact number.
[2024-08-03] MEDS: AMIODARONE 150 MG IVPB 150 MG/100 ML BAG 600 MG IV (09:52)
--- NOTE | 2024-08-03 09:58 | EVENTNT_ITS ---
Documentation for date of: 08/03/24 Event Note Event Note: Rapid Response called at approximately 7:27 AM during dialysis session. Rapid Response called as patinet was desating to the low 80s and requiring 10 Liters of oxygen. Paitent was able to protect airway and pulses 2+ present b ilaterally. Radial pulse irregular. Decreased vesicular breath sounds with crackles. Diffuse abdominal tenderness. Not complaining of chest pain. Only breast pain on right side, reproducable by palpation. Vitals BP 105/80, HR 141, RR 33, SpO2 91% Intervention: ABG, EKG, Chest xray, and bedside sugar test, Tropoin, Amio, Dialysis stopped. - The patient's plan was discussed with attending Dr. Campos and senior residents Dr. Marguerite Lugo MD PGY1 Internal Medicine
[2024-08-03] MEDS: LACTOBACILLUS RHAMNOSUS 1 CAP PO (10:08)
[2024-08-03] MEDS: APIXABAN 2.5 MG TABLET PO (10:08)
[2024-08-03] MEDS: AMIODARONE 360 MG IVPB 360 MG/200 ML BAG 33.333 MG IV (10:08)
[2024-08-03] MEDS: ACETAMINOPHEN 325 MG TABLET 650 MG PO (10:08)
[2024-08-03] MEDS: ASPIRIN EC 81 MG TABEC PO (10:08)
[2024-08-03] MEDS: PANTOPRAZOLE INJ 40 MG VIAL IV (10:08)
[2024-08-03 10:10] LABS: Base Excess 1 (-3-3); HCO3 25 mEq/L (20-26); O2 Saturation 99 % (91-98); PCO2 34 mmHg (32.0-48.0); PO2 107 mmHg (83-108); pH, Arterial 7.48 (7.35-7.45)
[2024-08-03 10:20] LABS: Allen Test Performed/OK; Inspired O2, VO2 Liters 5 L/min; Puncture Site Right Femoral
[2024-08-03 10:43] LABS: Digoxin 0.8 ng/mL (0.8-2.0)
--- NOTE | 2024-08-03 10:43 | PC.NURSE ---
COLLEGE OR UNIVERSITY BUSINESS MANAGER called due to elevated HR 140's and O2 sat was low it was in the 88%. O2 increased to 10L via oxy mask and sat went up to 99%. Pt awake alert also c/o abdominal pain 9 out of 10. All blood returned. Able to removed 560 ml of fluid net. Post tx BP 109/72, HR 130's. Amiodarone started by Bossman ZAVALA. Pt waiting for room in tele.
--- NOTE | 2024-08-03 11:12 | PC.NURSE ---
called report to sarah baugh in tele, pt in dialysis awaiting bed
--- NOTE | 2024-08-03 12:07 | PC.SS ---
Patient upgraded to ICU on 08-03-24.
--- NOTE | 2024-08-03 12:33 | ESPR_ITS ---
Documentation for date of: 08/03/24 Subjective Subjective Interval history: Ms. Nguyễn is a 68-year-old who is well-known to me with PMHx of HTN, T2DM insulin-dependent, CAD, HFpEF 60-65%, ESRD (MWF), a-fib on Eliquis, history of RCC s/p left nephrectomy (2022) has been having significant fluid overload and sometimes receiving 4 times weekly dialysis presented to the ED with weakness, shortness of breath, and high fevers. In ED, diagnosed with extensive bilateral pneumonia and severe pulmonary vascular congestion. EKG showed A-fib with RVR. Labs showed WBC 5.2, hemoglobin 12.5, platelets 152. Sodium 132, potassium 3.6, BUN 28, creatinine 4.6, blood sugar 199, calcium 9.6, AST 65, ALT 44, alk phos 201, troponin 0.12, BNP 06/13/1959, albumin 4, TSH 118, Pro-Devon 0.43, urinalysis shows significant amount of blood and 1+ bacteria. Did level 0.4. Hepatitis A and hepatitis C positive. Given lasix 40 mg x1, nitroglycerin, cefepime, morphine, aspirin 325. Admitted for pneumonia, acute chf exacerbation, and A-fib RVR, UTI. Nephrology consulted in view of need for dialysis and currently on dialysis. 07/22/2024 patient currently seen in telemetry. Still having significant shortness of breath and edema. Patient had a short run of dialysis yesterday. Next dialysis scheduled for tomorrow. Continue with antibiotics. Admitted with pneumonia/CHF exacerbation. 07/23/2024 patient was seen and examined at bedside. Blood pressure still on the soft side 99/65, pulse rate of 91, respiratory rate of 23, O2 saturation 99 on 1 L of oxygen. His hemoglobin is stable at 9.6, WBC 9, sodium show 133, potassium 4.7, serum creatinine 5.3, BUN 36. Urine culture came back positive for ESBL E. coli. Primary team started patient on meropenem. Patient will undergo a session of dialysis today as per his schedule 07/24/2024 Patient was seen and examined at bedside. Vitally patient was stable. However patient reported that she had episodes of rectal bleeding and also she injured her right foot. Primary team was informed about the bleeding that stopped her Eliquis and her aspirin and they put the patient on pantoprazole and consulted GI. Patient today still seems to be mildly overloaded. And her pertinent lab showed Hgb of 9.7 sodium today is 135, potassium 4.4, BUN of 33, creatinine 4.7, glucose 130, with mild elevation of AST and ALT. Patient reported significant cough primary team was informed that we will plan for the patient promethazine. 07/25/2024, patient was seen and examined at bedside. Patient denied any new symptoms however she seems to be overloaded today. Patient is getting GoLytely for preparation for the colonoscopy by Dr. Krishnamurthy. Her vital signs are within normal limits saturating 98% on 1 L of oxygen. Potassium today is 4.3, BUN of 35, creatinine 5.1, phosphorous 5.0 magnesium 2.1 calcium 9.5. Will reevaluate the patient tomorrow as she continued to get the GoLytely and will assess the patient if she needs extra session of dialysis tomorrow in addition to her dialysis today. 07/26/2024, patient was seen and examined at bedside. Patient denied any symptoms except that she was complaining of her GoLytely but she was not able to finish the whole bottle. It was noticed that the patient was taking ice and also multiple cans of 7-Up to help her with the taste of the GoLytely. Also patient was noticed to have increased lower extremity edema. For that reason, we will do extra session of dialysis for the patient to remove fluids only. Potassium 3.8, carbon dioxide 31.6, creatinine 3.8, BUN 21 calcium 9.5, magnesium 1.9, phosphorus 3.0 07/31/2024 patient was seen and examined at bedside. Her level of energy has improved significantly since yesterday. However her blood pressure is still in the low 90s over 60s. Patient denied any new symptoms denied any shortness of breath or chest pain. Yesterday the patient underwent dialysis. Today her potassium is 3.1 was given KCl p.o. 40 mill equivalent today. Her serum creatinine 5.2 BUN 23, phosphorus and magnesium within normal limits. Next dialysis will be tomorrow. 08/01/2024, patient was seen and examined at bedside. Her level of energy has improved however her blood pressure still on the soft side it was 92/65. Patient reported that she is still significantly having diarrhea for that reason we will prescribe the patient Ensure with her diet. Patient seems to be edematous however on auscultation her lungs are clear.Her hemoglobin today is 10.4, platelets 161, BUN 27, serum creatinine 5.9, potassium 4.1, glucose 152, calcium is 10.2 most likely due to immobilization, phosphorus 2.7, magnesium 2.1. Patient will undergo dialysis today at rate of 200 mL/ per minute. If her blood pressure right. 08/02/2024, patient was seen and examined at bedside. Her level of energy today is low. Yesterday dialysis was discontinued as the patient blood pressure decreased to a significant level. Today patient reported that she is feeling weak and sick however she denied any fever or chills. Patient will have tomorrow dialysis as per her schedule and we might consider adding 1 dose of cortisone before dialysis. Primary team put the patient on contact precautions to rule out C. difficile. 08/03/2024, patient seen and examined in dialysis room. Had rapid response in AM for HR 140's and O2 saturation at 88%. Oxygen increased to 10 L oxymask and saturation went up to 99%. Patient was awake and alert but did endorse abdominal and right-sided chest pain, painful to palpation. Dialysis stopped after 1 hour and 45 minutes as patient did not want to continue any longer. Amiodarone started. Primary team considering talking to patient and family regarding hospice given that patient has not been able to tolerate dialysis multiple times throughout hospital stay. Exam Vital Signs Temp Pulse Resp BP Pulse Ox O2 Del Method O2 Flow Rate 96.9 F 110 H 22 H 109/72 95 Nasal Cannula 4 08/03/24 09:56 08/03/24 10:17 08/03/24 10:17 08/03/24 10:08 08/03/24 10:17 08/03/24 08:00 08/03/24 10:17 Narrative Exam General: AOx3, in moderate distress, able to speak full sentences HEENT: NC/AT, mucous membranes moist, bilateral sclera anicteric Cardiovascular: tachycardic rhythm, S1/S2 present, no murmurs appreciated Pulmonary: fine crackles at bases Abdominal: soft, non-tender, non-distended, no rebound/guarding, normal bowel sounds present Musculoskeletal: pain to palpation at right side of chest, normal ROM, 2+ bilateral pitting edema Skin: warm and dry, intact, no rashes Objective Labs 08/03/24 04:52 08/03/24 04:52 Labs: Laboratory Results - last 24 hr 08/03/24 08/03/24 08/03/24 04:52 09:33 10:04 WBC 5.9 D RBC 3.45 L Hgb 11.0 L Hct 33.6 L MCV 97 MCH 31.9 MCHC 32.7 RDW Std Deviation 66.7 H Plt Count 160 Neut % (Auto) 77 Lymph % (Auto) 15 [place] % (Auto) 6 Eos % (Auto) 1 Baso % (Auto) 0 Neut # (Auto) 4.6 Lymph # (Auto) 0.9 L [place] # (Auto) 0.4 Eos # (Auto) 0.1 Baso # (Auto) 0.0 Immature Gran # (Auto) 0.03 H Absolute Nucleated RBC 0.06 H Immature Gran % 1 H Nucleated RBC % 1 H Puncture Site Right Femoral ABG pH 7.48 H ABG pCO2 34 ABG pO2 107 ABG HCO3 25 ABG O2 Saturation 99 H ABG Base Excess 1 Oxygen Liter Flow 5 Sodium 137 Potassium 4.0 Chloride 101 Carbon Dioxide 21.3 Anion Gap 15 BUN 33 H Creatinine 7.1 H* D Estim Creat Clear Calc 9.6 L eGFR 6 L* BUN/Creatinine Ratio 5 L Glucose 117 H Calculated Osmolality 282 Calcium 10.0 Corrected Calcium 10.0 Phosphorus 3.4 Magnesium 2.6 Total Bilirubin 0.7 AST 33 ALT 50 H Alkaline Phosphatase 167 H D Troponin I 2.320 H* Total Protein 6.9 Albumin 4.2 Globulin 2.7 Albumin/Globulin Ratio 1.6 TSH 36.99 H D Free T4 0.79 L Digoxin 0.8 ABG Interpretation ABG results: 07/28/24 07/29/24 08/03/24 08:37 09:28 10:04 ABG pH 7.49 H 7.48 H ABG pCO2 35 34 ABG pO2 69 L 107 ABG HCO3 27 H 25 ABG O2 Saturation 95 99 H ABG Base Excess 3 1 VBG pH 7.46 VBG pCO2 28 L VBG pO2 155 H VBG Base Excess -3 Quality Measures Quality Measures VTE prophylaxis Advance care planning discussed with:: patient Assessment & Plan Assessment Current Active Medications: Generic Name Dose Route Start Last Admin Trade Name Freq PRN Reason Stop Dose Admin Acetaminophen 650 mg 07/27/24 16:15 08/03/24 10:08 Acetaminophen 325 Mg Tablet PO 08/26/24 16:12 650 mg Q4HR PRN Administration mild pain 1-3 or Fever >100.4 Al Hydrox/Mg Hydrox/Simethicone 30 ml 07/27/24 18:41 07/30/24 13:52 Mg Hyd/Al Hyd/Alfredo (Maalox Reg) Susp 30 Ml Udc PO 08/26/24 18:40 30 ml QID PRN Administration UPSET STOMACH/INDIGESTION Apixaban 2.5 mg 07/22/24 09:00 08/03/24 10:08 Apixaban 2.5 Mg Tablet PO 08/21/24 08:59 2.5 mg BID KOTA Administration Aspirin 81 mg 07/22/24 09:00 08/03/24 10:08 Aspirin Ec 81 Mg Tabec PO 08/21/24 08:59 81 mg QDAY KOTA Administration Benzonatate 100 mg 07/21/24 11:42 07/26/24 19:45 Benzonatate 100 Mg Capsule PO 08/20/24 11:41 100 mg Q8HR PRN Administration COUGH Protocol Dextrose 25 ml 07/20/24 15:46 Dextrose 50%-Water Inj 50 Ml Syringe IV 08/19/24 15:45 Q15MIN PRN BG 50-70 responsive npo pt Dextrose 50 ml 07/20/24 15:46 07/21/24 07:46 Dextrose 50%-Water Inj 50 Ml Syringe IV 08/19/24 15:45 50 ml Q15MIN PRN Administration BG <50 OR BG <70 & pt unresponsive Digoxin 0.125 mg 07/29/24 08:00 08/02/24 08:51 Digoxin 0.125 Mg Tablet PO 08/28/24 07:59 0.125 mg Q48H KOTA Administration Glucagon 1 mg 07/20/24 15:46 Glucagon Inj 1 Mg Vial IM Q15MIN PRN BG <70, and no IV access Guaifenesin/Dextromethorphan 1 each 07/20/24 16:08 Guaifenesin/Dm Tablet PO 08/19/24 16:07 Q4HR PRN COUGH Protocol Amiodarone HCl/Dextrose 360 mg in 200 mls @ 33.333 mls/hr 08/03/24 09:41 08/03/24 10:08 Nexterone Ivpb IV 08/03/24 15:40 33.333 mls/hr .Q6H ONE Administration Amiodarone HCl/Dextrose 360 mg in 200 mls @ 16.667 mls/hr 08/03/24 15:30 Nexterone Ivpb IV 08/04/24 15:29 .Q12H KOTA Insulin Human Lispro 0 unit 07/20/24 17:00 08/03/24 11:37 Insulin Lispro (Admelog) 1 Unit/0.01 Ml Unit SC 08/19/24 16:59 Not Given ACHS KOTA Protocol Insulin Human Lispro 5 unit 07/20/24 17:00 07/21/24 08:09 Insulin Lispro (Admelog) 1 Unit/0.01 Ml Unit SC 08/19/24 16:59 Not Given ACHS KOTA Ipratropium [place] 0.5 mg 07/31/24 12:50 Ipratropium Rt 0.5 Mg/ 2.5 Ml Nebu INH 08/19/24 18:59 Q6HRRT PRN WHEEZING Lactobacillus Rhamnosus 1 cap 08/01/24 09:00 08/03/24 10:08 Lactobacillus Rhamnosus 1 Cap PO 08/31/24 08:59 1 cap BID KOTA Administration Levalbuterol HCl 0.63 mg 07/31/24 12:49 Levalbuterol Rt 0.63 Mg/3 Ml Nebu INH 08/20/24 09:59 Q6HRRT PRN WHEEZING Levothyroxine Sodium 100 mcg 08/02/24 06:00 08/03/24 05:12 Levothyroxine Sodium 100 Mcg Tablet PO 09/01/24 05:59 100 mcg ACBR KOTA Administration Melatonin 3 mg 07/21/24 00:29 08/02/24 21:24 Melatonin 3 Mg Tablet PO 08/20/24 20:59 3 mg HS PRN Administration SLEEPLESSNESS Midodrine 15 mg 07/29/24 14:00 08/03/24 05:12 Midodrine 5 Mg Tablet PO 08/28/24 13:59 15 mg TID KOTA Administration Pantoprazole Sodium 40 mg 07/24/24 08:55 08/03/24 10:08 Pantoprazole Inj 40 Mg Vial IV 08/23/24 08:54 40 mg QDAY KOTA Administration Promethazine HCl/Dextromethorphan 5 ml 07/24/24 10:29 07/25/24 23:52 Promethazine/Dm Syrup 5 Ml Dose PO 08/23/24 10:28 5 ml Q6HR PRN Administration COUGH OR CONGESTION Protocol Sevelamer Carbonate 800 mg 07/30/24 08:00 08/03/24 09:46 Sevelamer Carbonate 800 Mg Tablet PO 08/29/24 07:59 Not Given TIDWM KOTA Simethicone 80 mg 07/30/24 13:07 Simethicone 80 Mg Chew PO 08/29/24 13:06 QID PRN GAS Plan Zina Nguyễn is a 67-year-old female with significant medical history for ESRD on HD (MWF), DM2, HTN, CAD, Afib on Eliquis, CHF and left renal neoplasm s/p nephrectomy (on 05/14/23) BIBA to ED for shortness of breath, fever. Nephrology was consulted due to patient's ESRD. #ESRD on hemodialysis M/W/F #Status-post left nephrectomy, secondary to renal neoplasm ? Unable to tolerate dialysis ? If the patient does not tolerate dialysis because of hypotension will consider adding fludrocortisone ? Continue midodrine 15 mg p.o. daily, first dose in the morning before dialysis ? Albumin as needed for dialysis ? Strict in and out ? Ensure dietary supplements ? Pharmacy to dose medications #GI bleeding would likely depression or colonoscopy #Pneumonia #UTI #Hypothyroidism #DM #Afib #CAD #CHF ? Follow-up with the primary team recommendations ----- Plan discussed with attending physician Dr. Audrey Soriano MD PGY-1 Internal Medicine Attending Provider Attestation/Addendum Patient seen and examined with resident physician Dr. Yepez. Note reviewed, agree with findings and recommendations. Blood pressure still remains on the lower side. On midodrine 15 mg p.o. 3 times daily. 2+ edema noted. Blood pressure 94/61, heart rate 95. Try to do dialysis Tuesday and Tuesday and unsuccessful due to hypotension. Hold dialysis today and plan for tomorrow if blood pressure better. Will also consider adding fludrocortisone in a.m. to aid in blood pressure management. However fludrocortisone can cause fluid retention. Will monitor closely. 08/03/2024 patient currently seen in telemetry. Came back from dialysis. Dialysis was stopped due to significant hypotension and rapid response was called. At this point team talked to the patient. Patient agreed for hospice. She stated that she no longer want to continue dialysis and wants to go comfort care which seems to be appropriate. Discharge planning to rehab with hospice.
--- NOTE | 2024-08-03 12:56 | PD.RESPRO ---
Documentation for date of: 08/03/24 Exam Vital Signs Temp Pulse Resp BP Pulse Ox O2 Del Method O2 Flow Rate 96.9 F 110 H 22 H 109/72 95 Nasal Cannula 4 08/03/24 09:56 08/03/24 10:17 08/03/24 10:17 08/03/24 10:08 08/03/24 10:17 08/03/24 08:00 08/03/24 10:17 Objective Labs 08/03/24 04:52 08/03/24 04:52 Labs: Laboratory Results - last 24 hr 08/03/24 08/03/24 08/03/24 04:52 09:33 10:04 WBC 5.9 D RBC 3.45 L Hgb 11.0 L Hct 33.6 L MCV 97 MCH 31.9 MCHC 32.7 RDW Std Deviation 66.7 H Plt Count 160 Neut % (Auto) 77 Lymph % (Auto) 15 [place] % (Auto) 6 Eos % (Auto) 1 Baso % (Auto) 0 Neut # (Auto) 4.6 Lymph # (Auto) 0.9 L [place] # (Auto) 0.4 Eos # (Auto) 0.1 Baso # (Auto) 0.0 Immature Gran # (Auto) 0.03 H Absolute Nucleated RBC 0.06 H Immature Gran % 1 H Nucleated RBC % 1 H Puncture Site Right Femoral ABG pH 7.48 H ABG pCO2 34 ABG pO2 107 ABG HCO3 25 ABG O2 Saturation 99 H ABG Base Excess 1 Oxygen Liter Flow 5 Sodium 137 Potassium 4.0 Chloride 101 Carbon Dioxide 21.3 Anion Gap 15 BUN 33 H Creatinine 7.1 H* D Estim Creat Clear Calc 9.6 L eGFR 6 L* BUN/Creatinine Ratio 5 L Glucose 117 H Calculated Osmolality 282 Calcium 10.0 Corrected Calcium 10.0 Phosphorus 3.4 Magnesium 2.6 Total Bilirubin 0.7 AST 33 ALT 50 H Alkaline Phosphatase 167 H D Troponin I 2.320 H* Total Protein 6.9 Albumin 4.2 Globulin 2.7 Albumin/Globulin Ratio 1.6 TSH 36.99 H D Free T4 0.79 L Digoxin 0.8 ABG Interpretation ABG results: 07/28/24 07/29/24 08/03/24 08:37 09:28 10:04 ABG pH 7.49 H 7.48 H ABG pCO2 35 34 ABG pO2 69 L 107 ABG HCO3 27 H 25 ABG O2 Saturation 95 99 H ABG Base Excess 3 1 VBG pH 7.46 VBG pCO2 28 L VBG pO2 155 H VBG Base Excess -3 Quality Measures Quality Measures VTE prophylaxis Assessment & Plan Assessment Current Active Medications: Generic Name Dose Route Start Last Admin Trade Name Freq PRN Reason Stop Dose Admin Acetaminophen 650 mg 07/27/24 16:15 08/03/24 10:08 Acetaminophen 325 Mg Tablet PO 08/26/24 16:12 650 mg Q4HR PRN Administration mild pain 1-3 or Fever >100.4 Al Hydrox/Mg Hydrox/Simethicone 30 ml 07/27/24 18:41 07/30/24 13:52 Mg Hyd/Al Hyd/Alfredo (Maalox Reg) Susp 30 Ml Udc PO 08/26/24 18:40 30 ml QID PRN Administration UPSET STOMACH/INDIGESTION Apixaban 2.5 mg 07/22/24 09:00 08/03/24 10:08 Apixaban 2.5 Mg Tablet PO 08/21/24 08:59 2.5 mg BID KOTA Administration Aspirin 81 mg 07/22/24 09:00 08/03/24 10:08 Aspirin Ec 81 Mg Tabec PO 08/21/24 08:59 81 mg QDAY KOTA Administration Benzonatate 100 mg 07/21/24 11:42 07/26/24 19:45 Benzonatate 100 Mg Capsule PO 08/20/24 11:41 100 mg Q8HR PRN Administration COUGH Protocol Dextrose 25 ml 07/20/24 15:46 Dextrose 50%-Water Inj 50 Ml Syringe IV 08/19/24 15:45 Q15MIN PRN BG 50-70 responsive npo pt Dextrose 50 ml 07/20/24 15:46 07/21/24 07:46 Dextrose 50%-Water Inj 50 Ml Syringe IV 08/19/24 15:45 50 ml Q15MIN PRN Administration BG <50 OR BG <70 & pt unresponsive Digoxin 0.125 mg 07/29/24 08:00 08/02/24 08:51 Digoxin 0.125 Mg Tablet PO 08/28/24 07:59 0.125 mg Q48H KOTA Administration Glucagon 1 mg 07/20/24 15:46 Glucagon Inj 1 Mg Vial IM Q15MIN PRN BG <70, and no IV access Guaifenesin/Dextromethorphan 1 each 07/20/24 16:08 Guaifenesin/Dm Tablet PO 08/19/24 16:07 Q4HR PRN COUGH Protocol Amiodarone HCl/Dextrose 360 mg in 200 mls @ 33.333 mls/hr 08/03/24 09:41 08/03/24 10:08 Nexterone Ivpb IV 08/03/24 15:40 33.333 mls/hr .Q6H ONE Administration Amiodarone HCl/Dextrose 360 mg in 200 mls @ 16.667 mls/hr 08/03/24 15:30 Nexterone Ivpb IV 08/04/24 15:29 .Q12H KOTA Insulin Human Lispro 0 unit 07/20/24 17:00 08/03/24 11:37 Insulin Lispro (Admelog) 1 Unit/0.01 Ml Unit SC 08/19/24 16:59 Not Given ACHS KOTA Protocol Insulin Human Lispro 5 unit 07/20/24 17:00 07/21/24 08:09 Insulin Lispro (Admelog) 1 Unit/0.01 Ml Unit SC 08/19/24 16:59 Not Given ACHS KOTA Ipratropium [place] 0.5 mg 07/31/24 12:50 Ipratropium Rt 0.5 Mg/ 2.5 Ml Nebu INH 08/19/24 18:59 Q6HRRT PRN WHEEZING Lactobacillus Rhamnosus 1 cap 08/01/24 09:00 08/03/24 10:08 Lactobacillus Rhamnosus 1 Cap PO 08/31/24 08:59 1 cap BID KOTA Administration Levalbuterol HCl 0.63 mg 07/31/24 12:49 Levalbuterol Rt 0.63 Mg/3 Ml Nebu INH 08/20/24 09:59 Q6HRRT PRN WHEEZING Levothyroxine Sodium 100 mcg 08/02/24 06:00 08/03/24 05:12 Levothyroxine Sodium 100 Mcg Tablet PO 09/01/24 05:59 100 mcg ACBR KOTA Administration Melatonin 3 mg 07/21/24 00:29 08/02/24 21:24 Melatonin 3 Mg Tablet PO 08/20/24 20:59 3 mg HS PRN Administration SLEEPLESSNESS Midodrine 15 mg 07/29/24 14:00 08/03/24 05:12 Midodrine 5 Mg Tablet PO 08/28/24 13:59 15 mg TID KOTA Administration Pantoprazole Sodium 40 mg 07/24/24 08:55 08/03/24 10:08 Pantoprazole Inj 40 Mg Vial IV 08/23/24 08:54 40 mg QDAY KOTA Administration Promethazine HCl/Dextromethorphan 5 ml 07/24/24 10:29 07/25/24 23:52 Promethazine/Dm Syrup 5 Ml Dose PO 08/23/24 10:28 5 ml Q6HR PRN Administration COUGH OR CONGESTION Protocol Sevelamer Carbonate 800 mg 07/30/24 08:00 08/03/24 09:46 Sevelamer Carbonate 800 Mg Tablet PO 08/29/24 07:59 Not Given TIDWM KOTA Simethicone 80 mg 07/30/24 13:07 Simethicone 80 Mg Chew PO 08/29/24 13:06 QID PRN GAS
--- NOTE | 2024-08-03 13:15 | EVENTNT_ITS ---
Documentation for date of: 08/03/24 Event Note Event Note: Goals of Care event note Family meeting at approximately 1:15 PM on August 03, 2024 with patient's common-law , Tanmay Hammonds. Discussed with family and patient overall poor prognosis and multiple organ failure including cardiac with atrial fibrillation, congestive heart failure HFrEF 30% to 40%, and unable to tolerate dialysis as patient is an ESRD. Patient is understanding of the poor overall, prognosis and multiple failed dialysis sessions secondary to hypotension despite aggressive medical management with midodrine and albumin during dialysis sessions. Patient decided to forego dialysis and pursue hospice. Patient would like to be changed from full code to DNR/DNI. Brit social media campaign manager present as well as Tanmay, patient's common law . Patient was alert and oriented X [address]. - The patient's plan was discussed with attending Dr. Campos and senior residents Marguerite Lugo MD PGY1 Internal Medicine
--- NOTE | 2024-08-03 13:25 | PC.SS ---
Addendum entered by Brit Bragg 08/03/24 15:42: SS follow note; SS contacted patient's in regards to ETA. Addendum entered by Brit Bragg 08/03/24 15:37: SS was contacted by [employer] ETA is 1600. SS updated Teresa from [facility] as well as Floridalma from [facility], patient's Nurse, Becky and patient. SS will stand by for further needs. Addendum entered by Brit Bragg 08/03/24 14:25: SS follow up note; SS set up transportation through [facility], Reference # [id number]. Original Note: SS follow up note; Goals of care meeting was conducted at bedside, present was patient, the patient's , SS , Dr. Montero and DR Kilpatrick. Dr. Quiros discussed the patient's inability to tolerate dialysis, leading to the recommendation of hospice services, which the patient and thr patient's agreed to proceed with. During the meeting, SS inquired about the choice of hospice agency, to which the mentioned they didn't have a choice. The next Hospice Rotation is not contracted with [facility]. Next hospice rotation after [facility] is [facility]. SS initiated a hospice referral through [facility]. [facility] accepted patient. SS Contacted Floridalma from [facility] and she reported they are able to accept patient under hospice care. SS will set up transportation.
[2024-08-03] MEDS: SEVELAMER CARBONATE 800 MG TABLET PO (14:19)
--- NOTE | 2024-08-03 14:35 | PD.RESDS ---
Planned Discharge Date 08/03/24 DS: Providers Provider Date of admission: 07/20/24 14:57 Primary care physician: Lorraine Ventura MD Admitting Provider: Anselmo Dennis DO Attending Provider on Admission: Roberto Carlos Campos MD Consults: 07/20/24 13:30 Consult to Cardiology Stat Comment: Consulting Provider: Orestes Dudley Instructions: Elevated Troponin 07/20/24 13:51 Consult to Nephrology Stat Comment: Consulting Provider: Lorraine Ventura 07/20/24 15:47 Referral Registered Dietitian Routine Comment: 07/21/24 00:30 Referral Registered Dietitian Routine Comment: New pt, abrasion rt lower leg, skin tear rt FA Referral Wound Care Routine Comment: New pt, abrasion rt lower leg, skin tear rt FA 07/23/24 08:40 Referral Physical Therapy Routine Comment: Physician Instructions: 07/24/24 09:08 Consult to Gastroenterology Routine Comment: Consulting Provider: Shanti Krishnamurthy 07/29/24 14:06 Consult to Bookkeeping Clerks Supervisor Routine Comment: Consulting Provider: Shira Henriquez 08/03/24 13:44 Referral Hospice Stat Comment: Attending Provider on DC: La Lugo MD Discharging Provider: La Lugo MD DS: Diagnosis Problem List Completed Was Problem List Reviewed/Reconciled?: Yes Hospital Course Hospital Course Hospital course: Summary: Patient is a 68-year-old female with a past medical history of hypertension, diabetes mellitus type 2 insulin-dependent, CAD, CHF HFrEF 35-40%, ESRD (MWF), Atrial Fibrillation (Eliquis DC'd) and history of renal cell carcinoma s/p Left nephrectomy (2022) who was admitted on who was admitted for acute CHF exacerbation, pneumonia, and Atrial Fibrilation w/ RVR, Hypothyroidism, and diarrhea found to be Hepatitis A and Hepatitis C positive. Later unable to tolerate dialysis session and decided to forgo further dialysis session. ER Course: Patient's vitals were stable blood pressure 141/78, heart rate fluctuating between 110 and 100, respiratory rate 18, started on nasal cannula 3 L saturating at 98%. Patient was found to have elevated bicarb 32.3, elevated BUN 28, elevated creatinine 4.6, creatinine clearance of 14.6, GFR of 10. Patient is a dialysis patient who missed current session. Dialysis likely. Glucose 199. Elevated AST's and ALTs with alkaline phosphatase elevated. Troponin 0.120, continue to trend. BNP elevated 1261. Chest x-ray showed bilateral pneumonia with pulmonary vascular congestion prominent. EKG showed A-fib with RVR, we will will repeat EKG. Venous Doppler showed negative DVT. Medication given in the emergency room Lasix 40 mg x 1, nitroglycerin, cefepime, morphine, aspirin 325. Hospital Course: Hospital course During hospital course, all patient presented with pneumonia community-acquired likely secondary to gram-negative positive bacteria with chest x-ray on 07/20/2024) showing significant by basilar pneumonia and mild heart failure with vascular congestion with perihilar elevated patient started on ceftriaxone. Sputum culture showed 2 mixed oral kieran. Patient was complaining of pain with urination UA positive with WBCs and positive esterase. Urine culture showed E. coli. Patient completed antibiotic course and patient. Throughout hospital stay patient had a chief complaint of atrial fibrillation with RVR likely triggered by underlying infectious etiology. Patient was initially started on metoprolol succinate and subsequently DC'd patient's home medication of digoxin started and subsequently DC'd. Patient will be going home on amiodarone oral 200 mg twice daily. Digoxin was DC'd given the risk of worsening hypothyroidism and renal toxicity increases with medication and patient has decided to stop dialysis. Updated echo of breath 35 to 40% (07/30/2024). Lower pedal edema still present unable to treat with Lasix as patient produces minimal urine and unable to dialysis. Patient insulin was DC'd as A1c on admission was 6.1 glucose readings in the hospital under 180, patient experienced an episode of hypoglycemia when given Glargine 25 units at bedtime. Patient has required about 2 units of insulin glargine every day. No insulin on board at this time. Patient tested hepatitis A and hepatitis C with episodes of diarrhea. Supportive care for hepatitis A. Patient may wish to pursue hepatitis C treatment as outpatient. Transaminitis on admission, improving upon discharge. Colonoscopy initially planned but due to DC'd by patient as she could not tolerate GoLytely. Given patient's persistent hypotension despite 15 mg 3 times daily and albumin given during dialysis session, patient is unable to tolerate dialysis moving forward. Patient has decided to forego any invasive treatment. At this time patient would like to be DNR/DNI and hospice. Patient signed POLST form. Patient will return to SNF with hospice. Instructions: -Please stop Eliquis given risk of bleeding and desire to pursue hospice treatment with an increased risk of bleeding -Please stop Digoxin for atrial fibrillation given your worsening kidney function and unable to tolerate dialysis. -Please stop Atorvastatin as your will to pursue hospice care only -Please continue Amiodarone 200 mg twice daily for atrial fibrillation with RVR. -Please keep sodium intake less than 2 grams and water intake 1800 ml -Please discontinue Lantus for your diabetes mellitus until you follow up with your primary care provider. -Goal glucose in the morning of 80-130 and glucose after meals of 200. -Please start Midodrine 15 mg oral up to three times a day for low blood pressure NEEDED, please take if blood pressure <80/60 -Please continue all your medication as prescribed -Please continue Levothyroxine 100 mcg oral before meals at least 30 minutes before and keep 4 hours prior to other medication for hypothyroidism -Please monitor TSH and Free T4 with your primary care provider. -Please continue all other medication as prescribed. -Please follow up with your primary care provider within one week of discharge and Cardiologists within one week of discharge. -If your symptoms worsen,please seek immediate medical attention and return to your nearest emergency room -If you do not have a primary care provider, you may [facility] up [facility] [address], [place] [address], Disposition: SNF w/ hospice Diagnosis: #Hypotensive, continued #ESRD (Tuesday) #New Hypothyroidism, improving #Diarrhea, improving #Atrial Fibrillation #Atrial fibrillation with RVR, stable #Acute CHF exacerbation #HFrEF 35 to 40% #Acute Hypoxic Respirtory Failure, continued #Diabetes mellitus type 2 insulin-dependent #Hypoglycemic episode, resolved. #Hyperlipidemia #CAD #Transaminitis, secondary hepatitis A and C+, improving #Lower GI bleed, resolved #Anemia normocytic, stable #Community-acquired Pneumonia likely GPC, Resolved #Urinary tract infection, resolved - The patient's plan was discussed with attending Dr. Campos and senior residents Dr. Marguerite Lugo MD PGY1 Internal Medicine Time Spent with Patient Time attestation: Total time spent providing and/or coordinating discharge services: at least 35 minutes of care and coordination Exam Vital Signs Temp Pulse Resp BP Pulse Ox O2 Del Method O2 Flow Rate 96.9 F 110 H 22 H 109/72 95 Nasal Cannula 4 08/03/24 09:56 08/03/24 14:19 08/03/24 10:17 08/03/24 14:19 08/03/24 10:17 08/03/24 08:00 08/03/24 10:17 Narrative Exam General Appearance: Alert & Oriented X3, well-nourished female who is lying in bed in no acute distress HEENT: Skull symmetrical and atraumatic. Conjunctivae pin and moist. Pupils equal, round, reactive to light and accommodation (PERRL). External ear without lesion or discharge. Straight, nares patient, mucosa pink, no discharge. No thyroid nodule appreciated. No cervical lymphadenopathy. Cardio: Irregular Rate and Rhythm with S1 and S2 heart sounds. No murmurs or extra heart sounds auscultated. No bruits on carotid auscultation. Periperal edema +2. Lungs: Symmetric with good expansion. Chest and back non-tender. Breath sounds decreased bilaterally with some crackles. Abdomen: Diffuse Tenderness, Non-distended, Normal Reactive Bowel Sounds Neuro: Alert, cooperative, oriented to person, place, and time. Speech clear. CN grossly intact. Upper motor strength 5/5 and Lower motor strength 3/5. Sensation intact. Discharge Plan Plan Patient Disposition: Xfer Skilled Nsg Fac ([facility]) Disposition Comment: Hospice at [facility] Care Plan Goals: Instructions: -Continue Eliquis 2.5 mg BID -Continue Digoxin q48h for atrial fibrillation -Please stop Atorvastatin as your will to pursue hospice care only -Please continue Amiodarone 200 mg twice daily for atrial fibrillation with RVR. -Please keep sodium intake less than 2 grams and water intake 1800 ml -Please discontinue Lantus for your diabetes mellitus until you follow up with your primary care provider. -Goal glucose in the morning of 80-130 and glucose after meals of 200. -Please start Midodrine 15 mg oral up to three times a day for low blood pressure NEEDED, please take if blood pressure <80/60 -Please continue all your medication as prescribed -Please continue Levothyroxine 100 mcg oral before meals at least 30 minutes before and keep 4 hours prior to other medication for hypothyroidism -Please monitor TSH and Free T4 with your primary care provider. -Please continue all other medication as prescribed. -Please follow up with your primary care provider within one week of discharge and Cardiologists within one week of discharge. -If your symptoms worsen,please seek immediate medical attention and return to your nearest emergency room -If you do not have a primary care provider, you may follow up at the [facility] at [address], [place] [address], Disposition: SNF w/ hospice Prescriptions/Referrals Prescriptions/Med Rec: New levothyroxine 100 mcg Tablet 100 mcg PO ACBR 30 Days Qty: 30 0RF amiodarone 200 mg tablet 200 mg PO BID Qty: 30 0RF midodrine 5 mg Tablet 15 mg PO TID Qty: 30 0RF digoxin 125 mcg (0.125 mg) tablet 125 mcg PO Q48H Qty: 30 0RF Eliquis 2.5 mg tablet 2.5 mg PO BID Qty: 30 0RF Continued melatonin 3 mg Tablet 3 mg PO HS PRN (Reason: Insomnia) bisacodyl [Dulcolax (bisacodyl)] 10 mg Suppository 10 mg FL Q72H PRN (Reason: Constipation) Rx Instructions: If Milk of Magnesia ineffective Fleet Enema 19-7 gram/118 mL Enema 118 ml FL Q72H PRN (Reason: Constipation) Rx Instructions: If Milk of Magnesia/Dulcolax suppository ineffective ondansetron HCl 4 mg Tablet 4 mg PO Q6H PRN (Reason: Nausea And Vomiting) docusate sodium 250 mg Capsule 250 mg PO DAILY PRN (Reason: Constipation) sevelamer HCl 800 mg Tablet 2,400 mg PO TIDWM Rx Instructions: must administer with a meal/food acetaminophen [Tylenol] 325 mg Tablet 650 mg PO T3BRAPH PRN (Reason: Pain (Scale Score 1-3)) amino acids-protein hydrolys 15 gram- 100 kcal/30 mL Liquid In Packet 1 ea PO BIDWMEAL Rx Instructions: give 30 mL by mouth with meals for low albumin folic acid 1 mg Tablet 1 mg PO QDAY Dayan-Aristides 0.8 mg Tablet 1 tab PO QDAY alum-mag hydroxide-simeth [Annabelle-Lanta] 200-200-20 mg/5 mL Suspension 15 ml PO [id number] PRN (Reason: Acid Reflux) Rx Instructions: administer between meals and at bedtime Discontinued insulin glargine [Basaglar MadelinPen U-100 Insulin] 100 unit/mL (3 mL) Insulin Pen 40 unit SUBCUT QAM Rx Instructions: hold for bs <100 notify md is bs <70 or >400 (DME) True Metrix Glucose Test Strip strip Patient Comments: USE STRIP TO CHECK GLUCOSE DIRECTED ONCE DAILY Rx Instructions: check as directed once daily (DME) pen needle, diabetic [BD Ultra-Fine Orig Pen Needle] 29 gauge x 1/2 needle Rx Instructions: check as directed once daily ferrous sulfate [FeroSul] 325 mg (65 mg iron) Tablet 325 mg PO TID loratadine 10 mg Tablet 10 mg PO QDAY tramadol 50 mg Tablet 50 mg PO Q6H PRN (Reason: Pain (Scale Score 4-6)) diphenhydramine HCl [Benadryl Allergy] 25 mg Tablet 25 mg PO Q8HR PRN (Reason: Itching) diltiazem HCl 60 mg tablet 60 mg PO BID Rx Instructions: hold for SBP<100 or DBP <60 cephalexin 500 mg capsule 500 mg PO BID Qty: 10 0RF atorvastatin 40 mg Tablet 40 mg PO HS apixaban 5 mg tablet 5 mg PO BID 30 Days Qty: 60 1RF cephalexin 500 mg capsule 500 mg PO Q8H Qty: 30 0RF digoxin 125 mcg (0.125 mg) Tablet 125 mcg PO QDAY Hold Instructions: Resume on 07/23/24. Hold until you see your PCP metoprolol tartrate 25 mg Tablet 25 mg PO BID amiodarone 200 mg tablet 400 mg PO BID Rx Instructions: hold for pulse less than 60 cyanocobalamin (vitamin B-12) 1,000 mcg Tablet Extended Release 2,000 mcg PO QDAY lactulose 10 gram/15 mL Syrup 20 g PO Q24H PRN (Reason: Constipation) tramadol 50 mg Tablet 50 mg PO Q6H PRN (Reason: Moderate Pain (Scale Score 5-6)) Dextromethorphan Cough 10 mg/5 mL Syrup 20 mg PO Q6H PRN (Reason: Cough) diphenhydramine HCl [Benadryl] 25 mg Capsule 25 mg PO Q8HR PRN (Reason: Itching) digoxin 125 mcg (0.125 mg) Tablet 125 mcg PO EVERYOTHERDAY Rx Instructions: hold if pulse <60 multivitamin with minerals Tablet 1 tab PO QDAY Eliquis 5 mg Tablet 5 mg PO BID insulin glargine [Basaglar KwikPen U-100 Insulin] 100 unit/mL (3 mL) Insulin Pen 40 unit SUBCUT QAM Rx Instructions: hold for bs <100 Patient/Caregiver Discharge Instructions Education Materials: AFL/Afib, ED Hepatitis, Viral (Type A), ED Hepatitis C Virus Print Language: Malay Stand Alone Forms: [employer]elo Award Info., Patient Portal Info Letter Discharge Order Discharge Orders: Discharge (Routine); Ordered 08/03/24 Ordered By: La Lugo Quality Discharge Quality Measures VTE prophylaxis MD Attestestation MD Attestation I have examined the patient, reviewed labs and imaging findings, discussed the case with the resident(s), and reviewed entered orders. I agree with the plan of care as outlined in this note, with these additional summaries/recommendations: Patient had rapid response this morning during dialysis for inability to tolerate hemodialysis for the third session in a row. Hemodialysis was terminated early again today. Goals of care was held with patient and and all medical diagnoses and treatments were explained. All treatment options including full treatment versus hospice were discussed at length. Patient and have decided to proceed with hospice. We will respect family wishes and hospice referral made. All questions answered to satisfaction. Dr. Campos
[2024-08-07 07:01] LABS: Cortisol,total,LC/MS/MS* 15.8 mcg/dL
== END 2024-08-03 16:45 | disposition skilled nursing facility (03) | DRG 194 ==
LOC: SERX 13:34 → SERHOLD 15:01 → S2NX 22:59 → S3NX 07-31 18:05 → S2SX 08-03 11:49 → S2NX 08-03 12:58
PROVIDERS: Student in an Organized Health Care Education/Training Program; Admitting Provider Student in an Organized Health Care Education/Training Program; Emergency Provider Emergency Medicine; PCP Internal Medicine; Visit Provider Student in an Organized Health Care Education/Training Program
DX: I13.2 Hypertensive heart and chronic kidney disease with heart failure and with stage 5 chronic kidney disease, or end stage renal disease (principal); I48.91 Unspecified atrial fibrillation; Z79.01 Long term (current) use of anticoagulants; N39.0 Urinary tract infection, site not specified; J15.9 Unspecified bacterial pneumonia; E11.22 Type 2 diabetes mellitus with diabetic chronic kidney disease; N18.6 End stage renal disease; E03.9 Hypothyroidism, unspecified; E78.5 Hyperlipidemia, unspecified; I25.10 Atherosclerotic heart disease of native coronary artery without angina pectoris; Z85.528 Personal history of other malignant neoplasm of kidney; Z90.5 Acquired absence of kidney; Z99.2 Dependence on renal dialysis; Z79.4 Long term (current) use of insulin; I50.23 Acute on chronic systolic (congestive) heart failure; I21.A1 Myocardial infarction type 2; Z86.74 Personal history of sudden cardiac arrest; B96.20 Unspecified Escherichia coli [E. coli] as the cause of diseases classified elsewhere; B15.9 Hepatitis A without hepatic coma; B19.20 Unspecified viral hepatitis C without hepatic coma; K92.1 Melena; E11.649 Type 2 diabetes mellitus with hypoglycemia without coma; Z16.12 Extended spectrum beta lactamase (ESBL) resistance; I27.20 Pulmonary hypertension, unspecified; I31.39 Other pericardial effusion (noninflammatory); I95.9 Hypotension, unspecified; Z99.3 Dependence on wheelchair; Z66 Do not resuscitate; Z53.20 Procedure and treatment not carried out because of patient's decision for unspecified reasons; J96.01 Acute respiratory failure with hypoxia; D62 Acute posthemorrhagic anemia
CPT/HCPCS: 36415; 36600; 71045; 74018; 76705; 80053; 80061; 80074; 80162; 81001; 82140; 82533; 82803; 83036; 83605; 83735; 83880; 84100; 84145; 84439; 84443; 84481; 84484; 85014; 85018; 85025; 85379; 86331; 86635; 86703; 87040; 87077; 87081; 87086; 87186; 87205; 87400; 87493; 87811; 93005; 93306; 93970; 94640; 94664; 94667; 96365; 96375; 97162; 99285; J0283; J0692; J0696; J1720; J1815; J1940; J2185; J2270; J2470; J2543; J3371; J3475; J3490; J7040; J7050; P9047; Q5105; A9270